=== PATIENT | male | born 1965 | race Caucasian/White ===

== ENCOUNTER 2017-01-11 13:58 | Inpatient (IN) | payer OTHER, SELFPAY ==
[2016-12-23 11:33] VITALS: BMI 27.5
[2017-01-11] VITALS (14 sets, daily range): BP systolic 97–162; BP diastolic 55–111; PULSE 74–113; RESP 16–25; TEMP 36.1–37.3; O2SAT 91–100; BMI 26.6
--- NOTE | 2017-01-11 14:26 | EKG12_ITS ---
Test Reason : REPEAT Blood Pressure : / mmHG Vent. Rate : 089 BPM Atrial Rate : 089 BPM P-R Int : 154 ms QRS Dur : 082 ms QT Int : 352 ms P-R-T Axes : 031 -31 -12 degrees QTc Int : 428 ms Normal sinus rhythm Left axis deviation Inferior-posterior infarct , age undetermined Abnormal ECG Confirmed by ED VENTURA, GURPREET ([id number]), editor trade journal ASHLEY SHIELDS ([id number]) on 01/13/2017 2:06:39 PM Referred By: MERVAT Confirmed By:GURPREET WARD MD
--- NOTE | 2017-01-11 14:26 | RAD_ITS ---
STUDY: X-RAY CHEST REASON FOR EXAM: Male, 51 years old. Chest pain. TECHNIQUE: PA and lateral views of the chest. COMPARISON: Comparison is made with prior study done earlier in the day. FINDINGS: EKG electrodes are seen. Hyperinflation. Mild increased markings at the left lung base suggestive of linear atelectasis and/or scarring. There is no demonstrated pleural abnormality. Normal size heart. Normal mediastinum and stephen. Normal visualized pulmonary arteries. Normal visualized aortic arch and descending thoracic aorta. Normal visualized thoracic spine. Normal visualized ribs, clavicles, and shoulders. There is no demonstrated abnormality of the visualized soft tissue structures of the upper abdomen. RAD/Chest PA and Lateral IMPRESSION: Hyperinflation. Mild increased linear markings at the left lung base suggestive of linear scarring. Electronically Signed: Tanner Jiménez MD at 15:56 EST Tel [phone], Service support ,
[2017-01-11] MEDS: LORazepam 2 MG/ML Syringe 1 MG IV (15:05)
--- NOTE | 2017-01-11 16:06 | ED.VISSUMM ---
- ER Visit Summary Date of Service: 01/11/17 Chief Complaint: I am here to go back upstairs History of Present Illness: The patient is a 51 M who just signed out AGAINST MEDICAL ADVICE approximately 1 hour ago from the PCU where he was admitted for an acute myocardial infarction with positive troponins. The plan was to perform heart cath to rule out in-stent stenosis because he just had a stent placed on December 24. He said that he had to go home and turn the lights on in his apartment, smoke a few cigarettes, and to go pay some bills at the bank that were due this . He said that he has not had any chest pain since he left nor felt short of breath but he did feel somewhat sweaty. His worst episode of pain was this morning when he was initially admitted but he has basically been pain-free since then. He said that he basically return back to the ER to go back upstairs to the PCU. Physical Examination: Is not in distress. Neck is supple. Heart tones are regular and without murmur. Lungs are clear bilaterally. Abdomen is soft and nontender. No clinical evidence of DVT. Strong pulses in all extremities. Test Results: Troponin was repeated and it is markedly increased at 5.52. EKG does not reveal STEMI but does reveal somewhat peaked T waves anteriorly. T waves are flipped inferiorly. Emergency Department Course and Treatment: He remained pain-free and asymptomatic during his emergency department visit today but his troponin has increased consistent with an acute myocardial event. I discussed the case with Dr. Griggs who cared for him when he signed out AGAINST MEDICAL ADVICE and she is arranging to admit him back to the PCU and discussing the case with Dr. Mtz. He was already given aspirin. Other meds are going to be ordered by the admitting physician. Treatment Plan: Admit to PCU Disposition: Admit PCU Impression: NSTEMI This note was generated with [employer] dictation software. It may contain incorrect words, spelling, and punctuation that were not noted in review of the chart prior to signing ED Disposition - Plan for ED Patient: Chief Complaint: Chest Pain Referrals: Care Physician,No Primary [Primary Care Provider] -
--- NOTE | 2017-01-11 18:16 | PCM.HP.STD ---
Problem List (1) CAD (coronary artery disease), [place] coronary artery Status: Chronic Qualifiers: [place] vs. transplanted heart: [place] heart (2) History of PTCA Status: Chronic Comment: 12/23/16 2 bare metal stents to the RCA (3) Smoking addiction Status: Chronic (4) NSTEMI (non-ST elevated myocardial infarction) Status: Acute Comment: 01/11/17 (5) Noncompliance Status: Chronic (6) Abnormal EKG Status: Acute (7) STEMI (ST elevation myocardial infarction) Status: Chronic Qualifiers: Involved coronary artery: right coronary artery Qualified Code(s): I21.11 - ST elevation (STEMI) myocardial infarction involving right coronary artery Comment: 12/23/16 (8) Anxiety Status: Chronic History of Present Illness Date of Admission: 01/11/17 Chief Complaint: CP The patient is a 51 year old M with a past medical history of nicotine addiction, coronary artery disease, PTCA with 2 bare-metal stents to the RCA on 12/23/16, STEMI 12/23/16 who presented to the ER at [facility] on 01/11/17 complaining of a heavy squeezing pain in his chest. He related that he had stopped Plavix on 01/07 and told me this was because he wanted to drink. VS in the emergency room were temperature 98.1, pulse 92, respiratory rate 20, blood pressure 127/85 and his pulse ox was 96% on room air. Lab was unremarkable. The initial troponin was less than 0.02. EKG was ABN when compared to the EKG done after STEMI in December. Chest x-ray revealed no acute findings. He was admitted to a monitored bed on the progressive care unit and serial cardiac enzymes were ordered. The second troponin was elevated at 2.76. He was seen in consultation by Dr. Mtz from the [facility] who advised a cardiac catheterization but, the patient refused. He was told by Dr. Mzt and myself that he was at high risk of occluding the RCA stents due to discontinuing Plavix and that if he left the hospital AMA he was at high risk for sudden cardiac . He elected to leave AMA. ECHO was done prior to him leaving the hospital and the EF is now 45-50%......it was 60% post cath/PTCA. He returned to the ER a few hours later and asked to be readmitted to have a cardiac cath. Blood pressure when he arrived back in the emergency room was initially 143/90 and then increased to 158/111. The heart rate was within normal limits and he was afebrile. He was 95-100% saturated on room air. The third troponin is now increased to 5.52. He is being readmitted to PCU with a diagnosis of NSTEMI. He will be kept on a statin, Coreg, ASA, plavix and started on Lovenox 1 mg/kg subcu every 12 hours and a nitroglycerin infusion. He will undergo cardiac catheterization on 01/[address] Thad Mtz who has been notified that the patient returned to the hospital following discharge AMA earlier in the day. Past Medical History Past Medical History (Chronic Problems): Chronic Problems (Last Updated 01/10/17 @ 09:31 by BHARAT HoC) CAD (coronary artery disease), [place] coronary artery (Chronic) History of PTCA (Chronic) 12/23/16 2 bare metal stents to the RCA Smoking addiction (Chronic) Anxiety (Chronic) Noncompliance (Chronic) STEMI (ST elevation myocardial infarction) (Chronic) 12/23/16 Allergies No Known Allergies Allergy (Verified 01/11/17 13:58) Home Medications: Ambulatory Orders Medication Instructions Recorded Aspirin E.C. [Ecotrin] 81 mg PO DAILY@0800 tablet 12/25/16 Atorvastatin Calcium [Lipitor] 80 mg PO QHS 30 Days tablet 12/25/16 Carvedilol [Coreg (Beta Levon)] 3.125 mg PO BID #60 tablet 12/25/16 Clopidogrel Bisulfate [Plavix] 75 mg PO DAILY #30 tablet 12/25/16 Nicotine [Nicoderm Cq] 21 mg TRANSDERM. DAILY #14 patch 12/25/16 Trazodone HCl [Desyrel] 50 mg PO QHS #20 tablet 12/25/16 Lorazepam [Ativan] 1 mg PO TID PRN #10 tablet 12/28/16 Surgical History: noncontributory Psychiatric History: Anxiety Lives: Alone Smoking Status: Current every day smoker Tobacco Use: Cigarettes Alcohol: Heavy Drugs: None - he denies - *Family History Sibling History Items: Heart Disease Review of Systems Constitutional: Denies: Anorexia, Chills, Fever, Malaise, Weakness Eyes: Denies: Blurred vision HEENT: Denies: Head Aches, Sinus Congestion, Sinus Drainage, Sore Throat Cardiovascular: Reports: Chest Pain. Denies: Claudication, Edema, Light Headedness, Orthopnea, Palpitations, Paroxysmal Noc. Dyspnea, Syncope Respiratory: Denies: Shortness of Breath Gastrointestinal: Denies: Abdominal Pain, Nausea, Vomiting Genitourinary: Denies: Dysuria Musculoskeletal: Denies: Joint Pain, Joint Tenderness Skin: Denies: Jaundice, Rash, Wounds Neurological: Denies: Numbness, Tingling, Focal weakness Psychiatric: Reports: Anxiety Hematologic/ Lymphatic: Denies: Hx of blood clot VTE Information - Inpt Only VTE Present on Admission: No VTE Mechan Device Prophylaxis: Knee High MAYRA Hose Reason prophylaxis not ordered:: Treatment Not Indicated - he is on full dose Lovenox, 1 mg/kg SQ Q 12H Patient Problems: Active and Suspected Problems (Last Updated 01/10/17 @ 09:31 by Saroj Hidalgo BANANA ROOM CUTTER-C) NSTEMI (non-ST elevated myocardial infarction) (Acute) 01/11/17 - Physical Exam General: Alert, Oriented x3, Well developed, Well nourished, - - seems fidgety and anxious HEENT: Atraumatic, PERRLA, EOMI, Normocephalic Oral: Moist Mucosa Neck: Supple, No JVD, No Nuchal Rigidity, Trachea Midline Lungs: Clear to auscultation, No rhonchi, No wheeze, No rales Cardiovascular: Regular rate, Regular Rhythm, Normal S1, Normal S2, No murmurs, No rub noted, No Gallop Abdomen: Bowel Sounds Present, Soft, Non Tender, Non-Distended, No Hepato-splenomegaly Extremities: No clubbing, No cyanosis, No edema, No Calf Tenderness Skin: No rashes, No breakdown Musculoskeletal: No Muscle Wasting Neurological: Cranial nerves II-XII grossly intact, Neuro grossly intact Psych/Mental Status: Anxious Vital Signs Temp Pulse Resp BP Pulse Ox 99.2 F H 92 18 156/101 H 95 01/11/17 17:52 01/11/17 17:52 01/11/17 17:52 01/11/17 17:52 01/11/17 17:52 Oxygen Delivery Method Room Air Weight: 213 lb Body Mass Index (BMI) 26.6 Laboratory Tests Past 24 Hrs 01/11/17 17:44 Ethyl Alcohol Pending Assessment/Plan Active and Suspected Problems (Last Updated 01/10/17 @ 09:31 by BHARAT HoC) NSTEMI (non-ST elevated myocardial infarction) (Acute) 01/11/17 Impressions 1. Non-ST segment elevation [place] 2. Coronary artery disease with PTCA and bare-metal stents X2 to the RCA on 12/23/16 after presenting to the ER on that date with STEMI 3. ischemic cardiomyopathy with a 45-50 % EF 4. smoking addiction 5. suspect ETOH abuse 6. chronic anxiety and Benzodiazepine use 7. non-compliance Admit to PCU and start a NTG infusion and Lovenox 1 mg/kg subcu every 12 hours Schedule Ativan every 8 hours for anxiety control Continue Coreg but increase the dose to 6.25 mg twice daily. Continue atorvastatin, aspirin and Plavix N.p.o. after midnight Cardiac catheterization in the a.m. by Dr. Thad Mtz Recheck lab in the a.m. including a lipid panel Code Visit Inpatient E&M: 20944 Init Hosp L3
--- NOTE | 2017-01-11 18:21 | HP.PCM_ITS ---
Problem List (1) CAD (coronary artery disease), [place] coronary artery Status: Chronic Qualifiers: [place] vs. transplanted heart: [place] heart (2) History of PTCA Status: Chronic Comment: 12/23/16 2 bare metal stents to the RCA (3) Smoking addiction Status: Chronic (4) NSTEMI (non-ST elevated myocardial infarction) Status: Acute Comment: 01/11/17 (5) Noncompliance Status: Chronic (6) Abnormal EKG Status: Acute (7) STEMI (ST elevation myocardial infarction) Status: Chronic Qualifiers: Involved coronary artery: right coronary artery Qualified Code(s): I21.11 - ST elevation (STEMI) myocardial infarction involving right coronary artery Comment: 12/23/16 (8) Anxiety Status: Chronic History of Present Illness Date of Admission: 01/11/17 Chief Complaint: CP The patient is a 51 year old M with a past medical history of nicotine addiction, coronary artery disease, PTCA with 2 bare-metal stents to the RCA on 12/23/16, STEMI 12/23/16 who presented to the ER at [facility] on 01/11/17 complaining of a heavy squeezing pain in his chest. He related that he had stopped Plavix on 01/07 and told me this was because he wanted to drink. VS in the emergency room were temperature 98.1, pulse 92, respiratory rate 20, blood pressure 127/ 85 and his pulse ox was 96% on room air. Lab was unremarkable. The initial troponin was less than 0.02. EKG was ABN when compared to the EKG done after STEMI in December. Chest x-ray revealed no acute findings. He was admitted to a monitored bed on the progressive care unit and serial cardiac enzymes were ordered. The second troponin was elevated at 2.76. He was seen in consultation by Dr. Mtz from the [facility] who advised a cardiac catheterization but, the patient refused. He was told by Dr. Mtz and myself that he was at high risk of occluding the RCA stents due to discontinuing Plavix and that if he left the hospital AMA he was at high risk for sudden cardiac . He elected to leave AMA. ECHO was done prior to him leaving the hospital and the EF is now 45-50%......it was 60% post cath/PTCA. He returned to the ER a few hours later and asked to be readmitted to have a cardiac cath. Blood pressure when he arrived back in the emergency room was initially 143/90 and then increased to 158/111. The heart rate was within normal limits and he was afebrile. He was 95-100% saturated on room air. The third troponin is now increased to 5.52. He is being readmitted to PCU with a diagnosis of NSTEMI. He will be kept on a statin, Coreg, ASA, plavix and started on Lovenox 1 mg/kg subcu every 12 hours and a nitroglycerin infusion. He will undergo cardiac catheterization on 01/[address] Thad Mtz who has been notified that the patient returned to the hospital following discharge AMA earlier in the day. Past Medical History Past Medical History (Chronic Problems): Chronic Problems (Last Updated 01/10/17 @ 09:31 by BHARAT HoC) CAD (coronary artery disease), [place] coronary artery (Chronic) History of PTCA (Chronic) 12/23/16 2 bare metal stents to the RCA Smoking addiction (Chronic) Anxiety (Chronic) Noncompliance (Chronic) STEMI (ST elevation myocardial infarction) (Chronic) 12/23/16 Allergies No Known Allergies Allergy (Verified 01/11/17 13:58) Home Medications: Ambulatory Orders Medication Instructions Recorded Aspirin E.C. [Ecotrin] 81 mg PO DAILY@0800 tablet 12/25/16 Atorvastatin Calcium [Lipitor] 80 mg PO QHS 30 Days tablet 12/25/16 Carvedilol [Coreg (Beta Levon)] 3.125 mg PO BID #60 tablet 12/25/16 Clopidogrel Bisulfate [Plavix] 75 mg PO DAILY #30 tablet 12/25/16 Nicotine [Nicoderm Cq] 21 mg TRANSDERM. DAILY #14 patch 12/25/16 Trazodone HCl [Desyrel] 50 mg PO QHS #20 tablet 12/25/16 Lorazepam [Ativan] 1 mg PO TID PRN #10 tablet 12/28/16 Surgical History: noncontributory Psychiatric History: Anxiety Lives: Alone Smoking Status: Current every day smoker Tobacco Use: Cigarettes Alcohol: Heavy Drugs: None - he denies - *Family History Sibling History Items: Heart Disease Review of Systems Constitutional: Denies: Anorexia, Chills, Fever, Malaise, Weakness Eyes: Denies: Blurred vision HEENT: Denies: Head Aches, Sinus Congestion, Sinus Drainage, Sore Throat Cardiovascular: Reports: Chest Pain. Denies: Claudication, Edema, Light Headedness, Orthopnea, Palpitations, Paroxysmal Noc. Dyspnea, Syncope Respiratory: Denies: Shortness of Breath Gastrointestinal: Denies: Abdominal Pain, Nausea, Vomiting Genitourinary: Denies: Dysuria Musculoskeletal: Denies: Joint Pain, Joint Tenderness Skin: Denies: Jaundice, Rash, Wounds Neurological: Denies: Numbness, Tingling, Focal weakness Psychiatric: Reports: Anxiety Hematologic/ Lymphatic: Denies: Hx of blood clot VTE Information - Inpt Only VTE Present on Admission: No VTE Mechan Device Prophylaxis: Knee High MAYRA Hose Reason prophylaxis not ordered:: Treatment Not Indicated - he is on full dose Lovenox, 1 mg/kg SQ Q 12H Patient Problems: Active and Suspected Problems (Last Updated 01/10/17 @ 09:31 by Saroj Hidalgo POWER LINE LINEMAN- C) NSTEMI (non-ST elevated myocardial infarction) (Acute) 01/11/17 - Physical Exam General: Alert, Oriented x3, Well developed, Well nourished, - - seems fidgety and anxious HEENT: Atraumatic, PERRLA, EOMI, Normocephalic Oral: Moist Mucosa Neck: Supple, No JVD, No Nuchal Rigidity, Trachea Midline Lungs: Clear to auscultation, No rhonchi, No wheeze, No rales Cardiovascular: Regular rate, Regular Rhythm, Normal S1, Normal S2, No murmurs, No rub noted, No Gallop Abdomen: Bowel Sounds Present, Soft, Non Tender, Non-Distended, No Hepato- splenomegaly Extremities: No clubbing, No cyanosis, No edema, No Calf Tenderness Skin: No rashes, No breakdown Musculoskeletal: No Muscle Wasting Neurological: Cranial nerves II-XII grossly intact, Neuro grossly intact Psych/Mental Status: Anxious Vital Signs Temp Pulse Resp BP Pulse Ox 99.2 F H 92 18 156/101 H 95 01/11/17 17:52 01/11/17 17:52 01/11/17 17:52 01/11/17 17:52 01/11/17 17:52 Oxygen Delivery Method Room Air Weight: 213 lb Body Mass Index (BMI) 26.6 Laboratory Tests Past 24 Hrs 01/11/17 17:44 Ethyl Alcohol Pending Assessment/Plan Active and Suspected Problems (Last Updated 01/10/17 @ 09:31 by BHARAT Ho C) NSTEMI (non-ST elevated myocardial infarction) (Acute) 01/11/17 Impressions 1. Non-ST segment elevation [place] 2. Coronary artery disease with PTCA and bare-metal stents X2 to the RCA on after presenting to the ER on that date with STEMI 3. ischemic cardiomyopathy with a 45-50 % EF 4. smoking addiction 5. suspect ETOH abuse 6. chronic anxiety and Benzodiazepine use 7. non-compliance Admit to PCU and start a NTG infusion and Lovenox 1 mg/kg subcu every 12 hours Schedule Ativan every 8 hours for anxiety control Continue Coreg but increase the dose to 6.25 mg twice daily. Continue atorvastatin, aspirin and Plavix N.p.o. after midnight Cardiac catheterization in the a.m. by Dr. Thad Mtz Recheck lab in the a.m. including a lipid panel Code Visit Inpatient E&M: 26690 Init Hosp L3
[2017-01-11 18:40] LABS: Hematocrit 47.5 % (40-54); Mean Corp Hgb Conc 33.7 g/gl (32-36); Mean Corpuscular Hgb 32.7 pg (27.0-32.0); Mean Corpuscular Volume 96.9 fL (80-94); Mean Platelet Vol. 9.7 fl (6.2-12.0); Platelet Count 227 K/mm3 (150-450); RBC Distribution Width CV 12.5 % (11.6-14.6); White Blood Count 8.7 K/mm3 (4.4-11.0)
[2017-01-11 18:41] LABS: Scan Indicated on CBC? Y/N NO
[2017-01-11 18:45] LABS: Alcohol, Blood (Medical)-Serum < 3.0 mg/dL
[2017-01-11] MEDS: Lisinopril 5 MG Tablet PO (19:06)
[2017-01-11] MEDS: Enoxaparin 100 MG/ML Syringe SC (19:06)
[2017-01-11] MEDS: LORazepam 1 MG Tablet PO (19:06)
[2017-01-11 21:46] LABS: Amphetamine Urine VISTA NEGATIVE (<1000 ng/mL); Barbiturate Urine VISTA NEGATIVE (< 200 ng/mL); Benzodiazepine Urine VISTA NEGATIVE (< 200 ng/mL); Cocaine Urine VISTA NEGATIVE (< 300 ng/mL); Ecstacy Urine VISTA NEGATIVE (< 500 ng/mL); Methadone Urine VISTA NEGATIVE (< 300 ng/mL); PCP Urine VISTA NEGATIVE (< 25 ng/mL); THC Urine VISTA NEGATIVE (< 50 ng/mL); Vista UDS pH Range 6
[2017-01-11] MEDS: Atorvastatin Calcium 80 MG Tablet PO (22:30)
[2017-01-11] MEDS: traZODone 50 MG Tablet PO (22:30)
[2017-01-11] MEDS: Carvedilol 6.25 MG Tablet PO (22:30)
[2017-01-11 23:27] LABS: Hematocrit 45.5 % (40-54); Hemoglobin 15.8 g/dl (13.0-16.5); Mean Corp Hgb Conc 34.7 g/gl (32-36); Mean Corpuscular Hgb 33.3 pg (27.0-32.0); Mean Corpuscular Volume 95.8 fL (80-94); Mean Platelet Vol. 9.9 fl (6.2-12.0); Platelet Count 244 K/mm3 (150-450); RBC Distribution Width CV 12.4 % (11.6-14.6); RBC Distribution Width SD 42.2 fl (35.1-43.9); Red Blood Count 4.75 M/mm3 (4.6-6.2); White Blood Count 9.3 K/mm3 (4.4-11.0)
[2017-01-11 23:32] LABS: Scan Indicated on CBC? Y/N NO
[2017-01-12] VITALS (24 sets, daily range): BP systolic 91–145; BP diastolic 49–105; PULSE 59–87; RESP 12–24; TEMP 36.6–37.6; O2SAT 92–97; BMI 26.6
[2017-01-12] MEDS: Acetaminophen 325 MG Tablet 650 MG PO (04:35)
[2017-01-12 05:24] LABS: Partial Thromboplast Time 32.2 Seconds (24.1-36.2)
[2017-01-12 05:49] LABS: ALB/GLOB Ratio 0.9 RATIO (0.9-2.4); AST(SGOT) 46 U/L (15-37); Alanine Aminotransfer ALT/SGPT 31 U/L (12-78); Albumin, Serum 3.3 g/dL (3.4-5.0); Alkaline Phosphatase 74 U/L (45-117); Anion Gap 9 (5-15); BUN 12 mg/dL (7-18); BUN/Creat Ratio 13.9 RATIO (10-20); Calcium,Total 8.1 mg/dL (8.5-10.1); Chloride 107 mmol/L (98-107); Creatinine, Serum 0.86 mg/dL (0.70-1.30); EST Glomerular Filtration Rate 99 mL/min (>60); Est Glom Filt Rate - Afr Amer 120 mL/min (>60); Estimated Creatinine Clearance 121.46 ml/min; Globulin 3.6 g/dL (2.2-4.2); Glucose 117 mg/dL (70-110); Magnesium 2.4 mg/dL (1.8-2.4); Phosphorus 3.2 mg/dL (2.5-4.9); Protein, Total 6.9 g/dL (6.4-8.2); Sodium Level 142 mmol/L (136-145)
--- NOTE | 2017-01-12 05:55 | EKG12_ITS ---
Test Reason : AM EKG Blood Pressure : / mmHG Vent. Rate : 073 BPM Atrial Rate : 073 BPM P-R Int : 146 ms QRS Dur : 082 ms QT Int : 436 ms P-R-T Axes : 009 -28 -64 degrees QTc Int : 480 ms Normal sinus rhythm Inferior infarct , age undetermined ST & T wave abnormality, consider anterolateral ischemia Abnormal ECG When compared with ECG of 11-JAN-2017 14:32, MANUAL COMPARISON REQUIRED, DATA IS UNCONFIRMED Confirmed by ETIENNE BERRIOS ([id number]), department editor ASHLEY SHIELDS ([id number]) on 01/18/2017 9:53:54 AM Referred By: MARLI Confirmed By:ETIENNE BERRIOS
[2017-01-12] MEDS: Aspirin E.C. 81 MG Tablet PO (08:38)
[2017-01-12] MEDS: Clopidogrel Bisulfate 75 MG Tablet PO (08:38)
--- NOTE | 2017-01-12 08:45 | NURSING ---
Pt taken to cathead operator w/DILIP Vieira.
--- NOTE | 2017-01-12 09:08 | CASEMGMT ---
According to [facility] website, the following are in-network tertiary facilities: [facility], [facility], [facility], [facility], [facility], [facility], [facility], and . Josselin CHERRY CM
--- NOTE | 2017-01-12 09:15 | NURSING ---
Nitro GTT d/c in laborer cutting tool
--- NOTE | 2017-01-12 09:44 | CL.D_ITS ---
Patient Name: ORQUIDEA JUÁREZ Study Date: 01/12/2017 Performing: Thad Mtz MD Ht: 75.19 inches 191 cm : 1965 Wt: 213.85 lbs 97 kg Age: 51 Gender: male BSA: 2.26 PROCEDURE(S) PERFORMED [id number]/LV CLINICAL PROFILE AND INDICATIONS INDICATIONS: Unstable Angina Stress/Imaging Stress/Image Study Performed: No Angina Classification Anginal Classification w/in 2 Weeks: CCS IV CAD Presentations: Non-STEMI. Symptom onset Date/Time: 01/11/2017 Time Not Available Comorbidities/Risk Factors: Current/Recent Smoker (< 1year) Hypertension Dyslipidemia Prior PCI CONCLUSIONS Widely patent mid and distal RCA stents. Non obstructive coronary arteries No overt evidence of significant CAD to explain pts unstable angina and NSTEMI. Pt has been medicall y non-compliant with DAPT, as well as anti-HTN meds. Will increase coreg, start cozaar and recommend medical management of OM#1 lesion. If pt remains compliant with meds and returns with [place], would con record label intern PCI of OM#1. RECOMMENDATIONS Risk factor modification Plavix for at least 12 months Management as per referring Learning Analyst DESCRIPTION OF PROCEDURE The patient arrived to the procedure lab. The risks and benefits of the procedure as well as a full d escription of our services here and current unavailability of surgical backup were fully explained to the patient and/or their significant other prior to the catheterization. The Timeout was completed, verifying the correct patient and procedure. The patient's procedural site was prepped and draped in the usual fashion. Local anesthetic was given subcutaneously to right groin region with Lidocaine 2%. Using a modified Seldinger technique, arterial access was obtained via the right femoral artery, a 4 Fr sheath was inserted. Left Coronary Artery selective angiography was performed in multiple views u sing a 4 Fr. JL5 catheter. Right Coronary Artery selective angiography was then performed in multiple views using a 4 Fr. 3DRC catheter. Left Ventriculography was performed in ALVAREZ projection using a 4 F r. Pigtail catheter. LV to AO pullback pressures were then recorded.The arterial sheath was pulled an d manual compression applied until hemostasis is achieved. CORONARY ANGIOGRAPHY DOMINANCE: Right Dominant LEFT HEART ASSESSMENT Left Ventricular Ejection Fraction: by LV Gram 50-55 % Inferior Basal Hypokinesis - Mild Depressed Left Ventricular systolic function Abnormal Left Ventricular contraction pattern LEFT MAIN: Angiographically normal LEFT ANTERIOR DECENDING ARTERY: Mild luminal irregularities less than 30% CIRCUMFLEX ARTERY: Angiographically normal OM 1: Proximal - 50 % Stenosis RIGHT CORONARY ARTERY: MID RCA: Previously placed stent is patent DISTAL RCA: Previously placed stent is patent RT PLV: 50 prox % Stenosis RT PDA: Ostial - Angiographically normal COMPLICATIONS No Complications PROCEDURE MEDICATIONS Versed 1 mg IV Versed 1 mg IV Oxygen: 2 L/min via nasal cannula Nitro glycerin 25mg / 250ml D5W @ 5 mcg/min arrived from floor 01/12/2017 08:59:23 Nitro glycerin 25mg / 250ml D5W @ 0 mcg/min discontinued 01/12/2017 09:06:28 SUMMARY OF HEMODYNAMIC DATA Time AIR REST ECG 08:53:49 AO 116/65 (88) SA 09:05:57 LV 124/-14, 8 09:16:22 LV 124/-13, 15 09:16:29 LVp 124/-11, 13 09:16:34 AOp 123/69 (91) 09:16:39 Signed By Thad Mtz MD On 01/12/2017 09:43:49 Thad Mtz MD
[2017-01-12] MEDS: Carvedilol 6.25 MG Tablet PO (11:50)
[2017-01-12] MEDS: Losartan Potassium 25 MG Tablet PO (11:51)
[2017-01-12] MEDS: LORazepam 1 MG Tablet PO ×2 (12:03→17:39)
--- NOTE | 2017-01-12 13:28 | CRPHASE1 ---
Patient Data/Charges Sales & Service Associate:: Thad Mtz - \ Refer Phase II:: Yes Phase II Referral:: [facility] Risk Factors/Lifestyle Smoking Status: Current every day smoker Packs Smoked per Day: 1 Hx Hypertension: Yes - on meds Hx Diabetes Mellitus Type 1: No Hx Diabetes Mellitus Type 2: No Hx Dyslipidemia: Yes Hx Obesity: No Height: 1.91 m Weight:: 96.615 kg BMI: 26.6 Stress: Work-related, Home/Family ETOH: Yes Caffeine: No Substance Abuse: No Risk Factor for Sedentary Lifestyle: Lowest Risk Family History: Heart Disease, Hypertension Past Cardiac Illness: Coronary Artery Disease, Previous PCI w/Stent Phase I Education Given On:: Independence, Nutrition, Antiplatelet medication, CHF, Smoking cessation, Diabetes - Type I, Diabetes - Type II Issues Affecting Care:: None Knowledge of Condition:: Yes Hospital Course Pain Description: Sharp, Pressure Cardiac Cath Date:: 01/12/17 Medical/Surgical History UT:: Yes Angina:: Yes CAD:: Yes COPD:: Yes Diabetes:: No Diabetes Type I:: No Diabetes Type II:: No Hypertension:: Yes Dyslipidemia:: Yes Anxiety:: Yes PTCA:: Yes - 12/24 Discharge/Home/Social Eval Discharge Disposition: Home Marital Status: Single
--- NOTE | 2017-01-12 13:37 | CRPHASE1_ITS ---
Patient Data/Charges Student Services Rep:: Thad Mtz - \ Refer Phase II:: Yes Phase II Referral:: [facility] Risk Factors/Lifestyle Smoking Status: Current every day smoker Packs Smoked per Day: 1 Hx Hypertension: Yes - on meds Hx Diabetes Mellitus Type 1: No Hx Diabetes Mellitus Type 2: No Hx Dyslipidemia: Yes Hx Obesity: No Height: 1.91 m Weight:: 96.615 kg BMI: 26.6 Stress: Work-related, Home/Family ETOH: Yes Caffeine: No Substance Abuse: No Risk Factor for Sedentary Lifestyle: Lowest Risk Family History: Heart Disease, Hypertension Past Cardiac Illness: Coronary Artery Disease, Previous PCI w/Stent Phase I Education Given On:: [place], Nutrition, Antiplatelet medication, CHF, Smoking cessation, Diabetes - Type I, Diabetes - Type II Issues Affecting Care:: None Knowledge of Condition:: Yes Hospital Course Pain Description: Sharp, Pressure Cardiac Cath Date:: 01/12/17 Medical/Surgical History RI:: Yes Angina:: Yes CAD:: Yes COPD:: Yes Diabetes:: No Diabetes Type I:: No Diabetes Type II:: No Hypertension:: Yes Dyslipidemia:: Yes Anxiety:: Yes PTCA:: Yes - 12/24 Discharge/Home/Social Eval Discharge Disposition: Home Marital Status: Single
--- NOTE | 2017-01-12 13:37 | CRPH1.INSTRU ---
General Education CAD and cardiac anatomy and function:: Patient communicates acknowledgment Explanation of diagnoses and procedures:: Patient communicates acknowledgment Sign/Symptoms of CO:: Patient communicates acknowledgment Antiplatelet therapy: Patient communicates acknowledgment Proper use of NTG-SL: Patient communicates acknowledgment - states had none at home Emergency procedures and activation of EMS: Patient communicates acknowledgment Compliance of all prescribed medications: Patient communicates acknowledgment Smoking Patient Nicotine/Smoking Risk Factors Are:: Cigarettes Recommendations Include:: Smoking cessation strategies/Smoking packet Nicotine/Smoking Response Code:: Patient communicates acknowledgment Dyslipidemia Recommendations Include:: Lipid profile not available Dyslipidemia Response Code:: Patient communicates acknowledgment Overweight/Obesity Patient Overweight/Obesity Risk Factors Are:: Overweight = 26-29 Overweight/Obesity:: Patient communicates acknowledgment Hypertension Recommendations Include:: Maintain BP <130/85, Moderation of ETOH - on meds Hypertension:: Patient communicates acknowledgment Heart Disease Patient Heart Disease Risk Factors Are:: Family history of heart disease < 65 years old, Previous cardiac event Heart Disease Response Code:: Patient communicates acknowledgment Diabetes Patient Diabetes Risk Factors Are:: No documented hx of diabetes Metabolic Syndrome Patient Metabolic Syndrome Risk Factors Are [3 of 5]:: High triglyceride >150, Hypertension Metabolic Syndrome Response Code:: Patient communicates acknowledgment Sedentary Patient Sedentary Risk Factors Are:: Lack of regular exercise Recommendations Include:: Aerobic exercise 5-7 times/week for 20-30 minutes continuously, Benefits of regular exercise, Discussed home walking program, Monitored Outpatient Cardiac Rehab Sedentary Response Code:: Patient communicates acknowledgment Stress Patient Stress Risk Factors Are:: Patient denies stress as a risk factor Stress Response Code:: Patient communicates acknowledgment
--- NOTE | 2017-01-12 13:55 | NURSING ---
Pt got up and walked in the hallways with this RN. Cath site remains benign.
--- NOTE | 2017-01-12 15:48 | CASEMGMT ---
Face to Face with patient for initial transition planning/care coordination assessment. DILIP FOWLER introduced self and role at [facility], pt voices understanding and consents to assessment at this time. Pt lying in bed in no distress at this time. Pt A/O x4 at this time and answers all questions appropriately at this time. Care providers, pharmacy, and demographics verified. See attached link. Pt voices no further concerns/needs at this time. Advised pt to ask for CM if any further questions/concerns/needs arise, voices understanding. PL[place] DILIP FOWLER
--- NOTE | 2017-01-12 18:00 | PCM.DC ---
- Discharge Diagnoses Current Active Problems: Current Active and Chronic Problems (Last Updated 01/10/17 @ 09:31 by BETH Ho) CAD (coronary artery disease), [place] coronary artery (Chronic) History of PTCA (Chronic) 12/23/16 2 bare metal stents to the RCA Smoking addiction (Chronic) Anxiety (Chronic) Noncompliance (Chronic) NSTEMI (non-ST elevated myocardial infarction) (Acute) 01/11/17 You will use the following diet at home:: Cardiac Your food should be the consistency of: Regular Your liquids should be the consistency of: Regular/Thin Discharge Activity: Return to Normal Activity Return to work on:: 01/19/17 May shower in (days): 1 June resume sexual activity in: 10-14 days Weight Bearing Status: Full weight bearing Lifting Restrictions: no more than 10 lbs for 1 week Call your doctor if your incision/area has: Continuous Slow Oozing, Sudden Increased Bleeding, Increased Pain/ Swelling, Increased Redness, Foul Smelling Discharge Call your doctor if you observe: Fever of 101 or Higher, Shortness of breath, Dizziness, Fainting spells, Swelling in the ankles, Chest pain Additional Instructions: 1. You had a heart attack. This most likely happened because you did not take the Plavix. This probably caused a clot to form in the stent and when we gave you blood thinners in the hospital it dissolved. You were very charlene! Both stents were patent at the time of the cardiac catheterization AND there was no significant damage to the heart muscle. You MUST take both Aspirin and Plavix for at LEAST the next 3 months. 2. If you do not stop smoking you will develop more disease in the arteries in your heart and the next time you may not be so charlene. Pending Tests on Discharge: none Allergies/Adverse Reactions: Allergies No Known Allergies Allergy (Verified 01/11/17 13:58) Medications to take at Discharge Aspirin E.C. [Ecotrin] 81 mg PO DAILY@0800 tablet 12/25/16 Atorvastatin Calcium [Lipitor] 80 mg PO QHS 30 Days tablet 12/25/16 Clopidogrel Bisulfate [Plavix] 75 mg PO DAILY #30 tablet 12/25/16 Nicotine [Nicoderm Cq] 21 mg TRANSDERM. DAILY #14 patch 12/25/16 Trazodone HCl [Desyrel] 50 mg PO QHS #20 tablet 12/25/16 Lorazepam [Ativan] 1 mg PO TID PRN #10 tablet 12/28/16 Carvedilol [Coreg (Beta Lveon)] 6.25 mg PO BID #60 tab 01/12/17 Losartan Potassium [Cozaar] 25 mg PO DAILY #30 tab 01/12/17 The following prescriptions were given: Losartan Potassium [Cozaar] 25 mg PO DAILY #30 tab Carvedilol [Coreg (Beta Levon)] 6.25 mg PO BID #60 tab Primary Care Physician: Care Physician,No Primary [Primary Care Provider] - Please Follow Up With: Socrates Monte MD When: SCHEDULED Please Follow Up With: Kendell Lyons DO When: 1-2 WEEKS Proposed Discharge Date: 01/12/17
--- NOTE | 2017-01-12 18:11 | PCM.DC.SUM ---
Discharge Date and Diagnosis Date of Admission: 01/11/17 Date of Discharge: 01/12/17 - Primary Discharge Diagnosis Active and Suspected Problems (Last Updated 01/10/17 @ 09:31 by BETH Ho) NSTEMI (non-ST elevated myocardial infarction) (Acute) 01/11/17 uncontrolled HTN - Secondary Discharge Diagnosis Chronic Problems (Last Updated 01/10/17 @ 09:31 by BETH Ho) CAD (coronary artery disease), [place] coronary artery (Chronic) History of PTCA (Chronic) 12/23/16 2 bare metal stents to the RCA Smoking addiction (Chronic) Anxiety (Chronic) Noncompliance (Chronic) STEMI 12/23/16 COPD Hospital Course and Treatment Imaging Results: Clinical Impression(s) from Imaging Studies Chest X-Ray 01/11/17 14:26 IMPRESSION: Hyperinflation. Mild increased linear markings at the left lung base suggestive of linear scarring. Electronically Signed: Tanner Jiménez MD at 15:56 EST Tel [phone], Service support , Thad Mtz-[facility] Operations: None Procedures: Cardiac catheterization - 01/12/17 Dr. Mtz. Stents patent and no intervention Summary of Care Provided: The patient is a 51 year old M with a past medical history of nicotine addiction, coronary artery disease, PTCA with 2 bare-metal stents to the RCA on 12/23/16, STEMI 12/23/16 who presented to the ER at [facility] on 01/11/17 complaining of a heavy squeezing pain in his chest. He related that he had stopped Plavix on 01/07 and told me this was because he wanted to drink. VS in the emergency room were temperature 98.1, pulse 92, respiratory rate 20, blood pressure 127/85 and his pulse ox was 96% on room air. Lab was unremarkable. The initial troponin was less than 0.02. EKG was ABN when compared to the EKG done after STEMI in December. Chest x-ray revealed no acute findings. He was admitted to a monitored bed on the progressive care unit and serial cardiac enzymes were ordered. The second troponin was elevated at 2.76. He was seen in consultation by Dr. Mtz from the [facility] who advised a cardiac catheterization but, the patient refused. He was told by Dr. Mtz and myself that he was at high risk of occluding the RCA stents due to discontinuing Plavix and that if he left the hospital AMA he was at high risk for sudden cardiac . He elected to leave AMA. ECHO was done prior to him leaving the hospital and the EF is now 45-50%......it was 60% post cath/PTCA. He returned to the ER a few hours later and asked to be readmitted to have a cardiac cath. Blood pressure when he arrived back in the emergency room was initially 143/90 and then increased to 158/111. The heart rate was within normal limits and he was afebrile. He was 95-100% saturated on room air. The third troponin increased to 5.52. He was readmitted to PCU with a diagnosis of NSTEMI. He was kept on a statin, Coreg, ASA, plavix and started on Lovenox 1 mg/kg subcu every 12 hours and a nitroglycerin infusion. He was taken for cardiac on 01/12 which revealed patent stents and no intervention was needed. He was started on an ARB and Coreg was increased to 6.25 BID for better BP control. We recommended he stay overnight so that we could follow the BP overnight but he requested DC and he was discharged home with a RX for Coreg 6.25 mg and Cozaar 25 mg. He will follow-up with Dr. Kendell Lyons in 1-[address] Monte. The [facility] office will call him to schedule an appointment. This note was generated with [employer] dictation software. It may contain incorrect words, spelling, and punctuation that were not noted in checking the note before signing. Discharge Activity: Return to Normal Activity Return to work on:: 01/19/17 May shower in (days): 1 June resume sexual activity in: 10-14 days Weight Bearing Status: Full weight bearing Call your doctor if your incision/area has: Continuous Slow Oozing, Sudden Increased Bleeding, Increased Pain/ Swelling, Increased Redness, Foul Smelling Discharge Call your doctor if you observe: Fever of 101 or Higher, Shortness of breath, Dizziness, Fainting spells, Swelling in the ankles, Chest pain Home Medications: Medications to take at Discharge Aspirin E.C. [Ecotrin] 81 mg PO DAILY@0800 tablet 12/25/16 Atorvastatin Calcium [Lipitor] 80 mg PO QHS 30 Days tablet 12/25/16 Clopidogrel Bisulfate [Plavix] 75 mg PO DAILY #30 tablet 12/25/16 Nicotine [Nicoderm Cq] 21 mg TRANSDERM. DAILY #14 patch 12/25/16 Trazodone HCl [Desyrel] 50 mg PO QHS #20 tablet 12/25/16 Lorazepam [Ativan] 1 mg PO TID PRN #10 tablet 12/28/16 Carvedilol [Coreg (Beta Levon)] 6.25 mg PO BID #60 tab 01/12/17 Losartan Potassium [Cozaar] 25 mg PO DAILY #30 tab 01/12/17 Following Prescrptions Were Given to Patient: Losartan Potassium [Cozaar] 25 mg PO DAILY #30 tab Carvedilol [Coreg (Beta Levon)] 6.25 mg PO BID #60 tab Primary Care Physician: Care Physician,No Primary [Primary Care Provider] - Please Follow Up With: Socrates Monte MD When: SCHEDULED Please Follow Up With: Kendell Lyons DO When: 1-2 WEEKS Disposition: Home Minutes spent on discharge:: 35 Patient Condition:: Good Meaningful Use Info Meaningful Use Diagnoses (Choose all that apply): AMI - AMI Aspirin given w/in 24hrs of arrival?: Yes ASA at discharge?: Yes Statins at discharge?: Yes Kenny/ARB at discharge?: Yes Beta Levon at discharge?: Yes Done w/ Acute OR measure.: Yes Code Visit Inpatient E&M: 00441 Disch Hosp
== END 2017-01-12 18:45 | disposition home or self-care (01) | DRG 281 ==
LOC: ED 15:04 → PCU 16:41
PROVIDERS: Admitting Provider Internal Medicine; Emergency Provider Emergency Medicine; Visit Provider Internal Medicine
DX: I22.2 Subsequent non-ST elevation (NSTEMI) myocardial infarction (principal); I42.9 Cardiomyopathy, unspecified; F17.210 Nicotine dependence, cigarettes, uncomplicated; I21.11 ST elevation (STEMI) myocardial infarction involving right coronary artery; I25.110 Atherosclerotic heart disease of native coronary artery with unstable angina pectoris; I25.5 Ischemic cardiomyopathy; F41.9 Anxiety disorder, unspecified; Z91.14 Patient's other noncompliance with medication regimen; Z91.19 Patient's noncompliance with other medical treatment and regimen; Z79.82 Long term (current) use of aspirin; Z79.899 Other long term (current) drug therapy; Z95.5 Presence of coronary angioplasty implant and graft; I21.19 ST elevation (STEMI) myocardial infarction involving other coronary artery of inferior wall; E78.00 Pure hypercholesterolemia, unspecified; F10.10 Alcohol abuse, uncomplicated
CPT/HCPCS: 36415; 71020; 71045; 80048; 80053; 80307; 80320; 83735; 84100; 84484; 85025; 85027; 85610; 85652; 85730; 86141; 93005; 93306; 93458; 97802; 99152; 99153; 99282; 99285; J7040; A4216; C1769; C1894; G0480; Q9967

== ENCOUNTER 2017-03-30 06:29 | Observation (INO) | payer SELFPAY ==
[2017-01-12 13:36] VITALS: BMI 26.6
[2017-03-30] VITALS (13 sets, daily range): BP systolic 115–159; BP diastolic 72–100; PULSE 61–78; RESP 16–20; TEMP 36.4–36.8; O2SAT 96–98; BMI 28.5; BMI 26.9
--- NOTE | 2017-03-30 06:46 | RAD_ITS ---
STUDY: X-RAY CHEST REASON FOR EXAM: Male, 51 years old. Chest pain. TECHNIQUE: Single AP portable view of the chest. COMPARISON: Comparison is made with prior study dated January 11, 2017. FINDINGS: EKG electrodes are seen. Hyperinflation. The lungs are clear. There is no demonstrated pleural abnormality. Normal size heart. Normal mediastinum and stephen. Normal visualized pulmonary arteries. Normal visualized aortic arch and descending thoracic aorta. Normal visualized thoracic spine. Normal visualized ribs, clavicles, and shoulders. There is no demonstrated abnormality of the visualized soft tissue structures of the upper abdomen. RAD/Chest 1 View (Portable) IMPRESSION: Normal x-ray examination of the chest. Electronically Signed: Tanner Jiménez MD at 8:07 EST Tel [phone], Service support ,
--- NOTE | 2017-03-30 06:46 | EKG12_ITS ---
Test Reason : CP Blood Pressure : / mmHG Vent. Rate : 067 BPM Atrial Rate : 067 BPM P-R Int : 146 ms QRS Dur : 090 ms QT Int : 388 ms P-R-T Axes : -02 -18 006 degrees QTc Int : 409 ms Normal sinus rhythm Normal ECG Confirmed by ANTONIO VENTURA, ONEIDA ([id number]), medical editor ASHLEY SHIELDS ([id number]) on 04/01/2017 1:07:26 PM Referred By: MERVAT Confirmed By:ONEIDA ALVAREZ MD
[2017-03-30] MEDS: Aspirin 81 MG TAB.CHEW 162 MG PO (06:51)
[2017-03-30 06:53] LABS: Absolute Lymphocyte Count 2.01 X10^3/ul (0.83-4.51); Absolute Neutrophil Count 3.8 X10^3/uL (2.0-7.7); Basophil# 0.02 X10^3/uL; Basophil% 0.3 % (0-1); Eosinophils% 4.3 % (0-5); Hemoglobin 14.5 g/dl (13.0-16.5); Lymphocyte # 2.01 X10^3/ul (4.0); Mean Corp Hgb Conc 33.7 g/gl (32-36); Mean Corpuscular Hgb 32.6 pg (27.0-32.0); Mean Corpuscular Volume 96.6 fL (80-94); Mean Platelet Vol. 9.8 fl (6.2-12.0); Monocyte# 0.74 X10^3/uL; Monocyte% 10.7 % (0-10); Neutrophil # 3.84 X10^3/uL (2.7-7.7); Neutrophil % 55.6 % (47-70); Platelet Count 221 K/mm3 (150-450); RBC Distribution Width CV 13.2 % (11.6-14.6); RBC Distribution Width SD 47.1 fl (35.1-43.9); Red Blood Count 4.45 M/mm3 (4.6-6.2); White Blood Count 6.9 K/mm3 (4.4-11.0)
[2017-03-30 06:54] LABS: POSITIVE COUNT NO; POSITIVE DIFFERENTIAL NO; POSITIVE MORPHOLOGY NO
[2017-03-30 07:15] LABS: Anion Gap 7 (5-15); BUN 12 mg/dL (7-18); BUN/Creat Ratio 15.1 RATIO (10-20); Calcium,Total 8.4 mg/dL (8.5-10.1); Chloride 107 mmol/L (98-107); EST Glomerular Filtration Rate 109 mL/min (>60); Est Glom Filt Rate - Afr Amer 131 mL/min (>60); Estimated Creatinine Clearance 130.56 ml/min; Glucose 110 mg/dL (74-106); Potassium 5.4 mmol/L (3.5-5.1); Sodium Level 140 mmol/L (136-145)
[2017-03-30] MEDS: Acetaminophen 500 MG Tablet 1000 MG PO (07:34)
--- NOTE | 2017-03-30 07:54 | ED.VISSUMM ---
- ER Visit Summary Date of Service: 03/30/17 Chief Complaint: Chest pain History of Present Illness: The patient is a 51 M sudden left-sided chest tightness while getting ready for work at 430. Denied radicular symptoms. Denies nausea, dyspnea, diaphoresis. Tobacco history. Father with [place] at in his 30s. Patient states had a heart attack this past December with stenting, then he states he is brought back in January for additional stent. He is followed by Dr. Monte. He states he does not have time for cardiac rehab. He is on Plavix and states he is taking this. Pain is 8. He took a baby aspirin at home. States she has alcohol 2 times per week, denies any illicit drug use. He states he symptoms feels like his initial heart attack in December. Records reviewed, noted he has STEMI in December with 2 right coronary stents. He had admission January for acute chest pain symptoms with an NSTEMI. Records reporting that he missed some Plavix dose it is, there was concerns for in-stent stenosis. He had a troponin in the fives, he signed out AMA, however return for the catheterization that noted patent stents. He was medically managed and discharged home with outpatient follow-up. Physical Examination: General: Alert and oriented ?3, no acute distress HEENT: Normocephalic, atraumatic. Moist mucosa membranes Neck: supple, nontender. Cardiovascular: Regular rate and rhythm, no murmurs Respiratory: Normal breath sounds, symmetric, no distress Abdomen: Soft, nontender, nondistended Extremities: Nontender, no edema, pulses intact ?4 Neuro: no focal neurological deficits. Test Results: EKG: Normal sinus rhythm, rate of 67, no ST elevation. Isolated T-wave inversion in leads III. Troponin negative. Potassium 5.4 with moderate hemolyzed sedation. Creatinine 0.8. Emergency Department Course and Treatment: Patient presented with chest tightness similar to his initial [place]. EKG with nonspecific findings. Was given additional aspirin, nitro series with significant relief of his symptoms. Nitroglycerin patch was placed. Workup negative. Hemolyzed potassium 5.4. After evaluation of his records noting concerns for noncompliance and continued tobacco history. I did speak with cardiology Dr. Mtz, agrees that patient should stay in the hospital for cycling of his enzymes. He states that this is negative stress test can be obtained and if negative can be discharged home. I spoke with hospitalist, Dr. Higgins for admission. Treatment Plan: [] Disposition: Admission Impression: Acute chest pain This note was generated with [employer] dictation software. It may contain incorrect words, spelling, and punctuation that were not noted in review of the chart prior to signing ED Disposition - Plan for ED Patient: Disposition: Acute [facility] Chief Complaint: Chest Pain Diagnosis: Acute chest pain
--- NOTE | 2017-03-30 08:02 | ED.DCSUM_ITS ---
- ER Visit Summary Date of Service: 03/30/17 Chief Complaint: Chest pain History of Present Illness: The patient is a 51 M sudden left-sided chest tightness while getting ready for work at 430. Denied radicular symptoms. Denies nausea, dyspnea, diaphoresis. Tobacco history. Father with [place] at in his 30s. Patient states had a heart attack this past December with stenting, then he states he is brought back in January for additional stent. He is followed by Dr. Monte. He states he does not have time for cardiac rehab. He is on Plavix and states he is taking this. Pain is 8. He took a baby aspirin at home. States she has alcohol 2 times per week, denies any illicit drug use. He states he symptoms feels like his initial heart attack in December. Records reviewed, noted he has STEMI in December with 2 right coronary stents. He had admission January for acute chest pain symptoms with an NSTEMI. Records reporting that he missed some Plavix dose it is, there was concerns for in-stent stenosis. He had a troponin in the fives, he signed out AMA, however return for the catheterization that noted patent stents. He was medically managed and discharged home with outpatient follow-up. Physical Examination: General: Alert and oriented ?3, no acute distress HEENT: Normocephalic, atraumatic. Moist mucosa membranes Neck: supple, nontender. Cardiovascular: Regular rate and rhythm, no murmurs Respiratory: Normal breath sounds, symmetric, no distress Abdomen: Soft, nontender, nondistended Extremities: Nontender, no edema, pulses intact ?4 Neuro: no focal neurological deficits. Test Results: EKG: Normal sinus rhythm, rate of 67, no ST elevation. Isolated T -wave inversion in leads III. Troponin negative. Potassium 5.4 with moderate hemolyzed sedation. Creatinine 0.8. Emergency Department Course and Treatment: Patient presented with chest tightness similar to his initial [place]. EKG with nonspecific findings. Was given additional aspirin, nitro series with significant relief of his symptoms. Nitroglycerin patch was placed. Workup negative. Hemolyzed potassium 5.4. After evaluation of his records noting concerns for noncompliance and continued tobacco history. I did speak with cardiology Dr. Mtz, agrees that patient should stay in the hospital for cycling of his enzymes. He states that this is negative stress test can be obtained and if negative can be discharged home. I spoke with hospitalist, Dr. Higgins for admission. Treatment Plan: [] Disposition: Admission Impression: Acute chest pain This note was generated with [employer] dictation software. It may contain incorrect words, spelling, and punctuation that were not noted in review of the chart prior to signing ED Disposition - Plan for ED Patient: Disposition: Acute [facility] Chief Complaint: Chest Pain Diagnosis: Acute chest pain
[2017-03-30] MEDS: Nitroglycerin Oint 1 INCH PACKET TRANSDERM. (08:07)
--- NOTE | 2017-03-30 09:21 | PCM.HP.STD ---
Problem List (1) CAD (coronary artery disease), [place] coronary artery Status: Chronic Qualifiers: (2) History of PTCA Status: Chronic Comment: 12/23/16 2 bare metal stents to the RCA (3) Anxiety Status: Chronic (4) Noncompliance Status: Chronic History of Present Illness Date of Admission: 03/30/17 Chief Complaint: Chest pain. The patient is a 51 year old M with past medical history as mentioned above presented to the medicine because of chest pain. His symptoms started this morning after he woke up from sleep around 4 AM with left-sided chest pain, squeezing pain, 7 out of 10 in severity, not radiating, aggravated by bending forward or coughing without relieving factors and relieved by nitroglycerin that he received in the emergency room. He denied associated shortness of breath, dizziness, lightheadedness, nausea, vomiting or sweating. At this time, he mentioned that his pain is down to 1 out of 10. In the emergency room, his vital signs were stable. His routine blood work was remarkable for potassium of 5.4, otherwise normal. Troponin is negative. EKG revealed normal sinus rhythm, normal TN interval, normal QRS, normal QTC and no acute ischemic changes. Chest x-ray showed no acute findings. He is being admitted for atypical chest pain for evaluation. Past Medical History Past Medical History (Chronic Problems): Chronic Problems (Last Updated 01/17/17 @ 09:00 by BETH Ho) S/P coronary artery stent placement (Chronic) 12/23/16 distal and proximal RCA CAD (coronary artery disease), [place] coronary artery (Chronic) History of PTCA (Chronic) 12/23/16 2 bare metal stents to the RCA Smoking addiction (Chronic) Anxiety (Chronic) Noncompliance (Chronic) Allergies No Known Allergies Allergy (Verified 03/30/17 06:30) Home Medications: Ambulatory Orders Medication Instructions Recorded Aspirin E.C. [Ecotrin] 81 mg PO DAILY@0800 tablet 12/25/16 Nicotine [Nicoderm Cq] 21 mg TRANSDERM. DAILY #14 patch 12/25/16 atorvastatin 80 mg tablet 80 mg PO QHS 90 Days #90 tab 01/19/17 carvedilol 6.25 mg tablet 6.25 mg PO BID #180 tab 01/19/17 clopidogrel 75 mg tablet 75 mg PO DAILY #90 tab 01/19/17 losartan 25 mg tablet 25 mg PO DAILY #90 tab 01/19/17 ALPRAZolam [Xanax] 2 mg PO QHS PRN PRN 03/30/17 Fluoxetine [Prozac] 20 mg PO DAILY 03/30/17 Surgical History: herniorrhaphy Psychiatric History: Anxiety Lives: Spouse/ Significant Other Smoking Status: Current every day smoker Alcohol: None Drugs: None - *Family History Sibling History Items: Heart Disease Maternal History Items: No pertinent history Paternal History Items: No pertinent history Review of Systems Constitutional: Denies: Anorexia, Chills, Fever, Weakness Eyes: Denies: Blurred vision, Double vision, Drainage, Redness HEENT: Denies: Difficulty Hearing, Ear Pain, Eye Pain, Nasal Congestion, Sore Throat Cardiovascular: Reports: Chest Pain. Denies: Chest Tightness, Edema, Heaviness, Light Headedness, Palpitations, Syncope Respiratory: Denies: Cough, Hemoptysis, Shortness of Breath, Sputum production, Wheezing Gastrointestinal: Denies: Abdominal Pain, Constipation, Diarrhea, Nausea, Vomiting Genitourinary: Denies: Dysuria, Frequency, Hematuria Musculoskeletal: Denies: Arm Pain, Back Pain, Foot Pain Skin: Denies: Dryness, Rash Neurological: Denies: Balance problems, Blurred vision, Double vision, Slurred speech, Confusion, Headaches, Incoordination Psychiatric: Reports: Anxiety. Denies: Depression Endocrine: Denies: Change in Body Habitus, Polydipsia VTE Information - Inpt Only VTE Present on Admission: No VTE Mechan Device Prophylaxis: None VTE Pharm Prophylaxis ordered?: No - Physical Exam General: Alert, Oriented x3, Cooperative, No apparent distress HEENT: Atraumatic, PERRLA, EOMI Oral: Moist Mucosa, No Gingival or Mucosal Lesions/ Ulcerations Neck: Supple, No JVD, Negative Carotid Bruits, Trachea Midline, Thyroid Normal Size and Texture Lungs: Clear to auscultation, Normal air movement, No rhonchi, No wheeze, No rales Cardiovascular: Regular rate, Regular Rhythm, Normal S1, Normal S2, PMI Normal Abdomen: Bowel Sounds Present, Soft, Non Tender, Non-Distended, No Hepato-splenomegaly Extremities: No clubbing, No cyanosis, No edema Skin: No rashes, No breakdown Lymphatic: No Cervical, Supraclavicular, or Inguinal Adenopathy Neurological: Cranial nerves II-XII grossly intact, Motor Exam 5/5 strength throughout Psych/Mental Status: Normal Affect, Appropriate, Alert and oriented to time, place, person, mood and affect Vital Signs Temp Pulse Resp BP Pulse Ox 97.9 F 65 16 130/72 H 98 03/30/17 08:35 03/30/17 08:35 03/30/17 08:35 03/30/17 08:36 03/30/17 08:35 Oxygen Delivery Method Room Air Weight: 215 lb 2.738 oz Body Mass Index (BMI) 26.9 Laboratory Tests 03/30/17 03/30/17 Range/Units 06:40 06:40 WBC 6.9 (4.4-11.0) K/mm3 RBC 4.45 L (4.6-6.2) M/mm3 Hgb 14.5 (13.0-16.5) g/dl Hct 43.0 (40-54) % MCV 96.6 H (80-94) fL MCH 32.6 H (27.0-32.0) pg MCHC 33.7 (32-36) g/gl RDW 13.2 (11.6-14.6) % RDW Differential 47.1 H (35.1-43.9) fl Plt Count 221 (150-450) K/mm3 MPV 9.8 (6.2-12.0) fl Immature Gran % (Auto) 0.100 (0.0-0.9) % Neut % (Auto) 55.6 (47-70) % Lymph % (Auto) 29.0 (19-41) % [place] % (Auto) 10.7 H (0-10) % Eos % (Auto) 4.3 (0-5) % Baso % (Auto) 0.3 (0-1) % Absolute Neuts (auto) 3.8 (2.0-7.7) X10^3/uL Absolute Lymphs (auto) 2.01 (0.83-4.51) X10^3/ul Total Counted Not Reportable Sodium 140 (136-145) mmol/L Potassium 5.4 H (3.5-5.1) mmol/L Chloride 107 (98-107) mmol/L Carbon Dioxide 26.0 (21.0-32.0) mmol/L Anion Gap 7 (5-15) BUN 12 (7-18) mg/dL Creatinine 0.80 (0.70-1.30) mg/dL Estim Creat Clear Calc 130.56 ml/min Est GFR (MDRD) Af Amer 131 (>60) mL/min Est GFR (MDRD) Non-Af 109 (>60) mL/min BUN/Creatinine Ratio 15.1 (10-20) RATIO Glucose 110 H (74-106) mg/dL Calcium 8.4 L (8.5-10.1) mg/dL Troponin I < 0.02 (<0.06) ng/mL Clinical Impression(s) from Imaging Studies Chest X-Ray 03/30/17 06:46 IMPRESSION: Normal x-ray examination of the chest. Electronically Signed: Tanner Jiménez MD at 8:07 EST Tel [phone], Service support , Assessment/Plan This is a 51 years old male patient presented to the medicine because of chest pain and he is being admitted for evaluation. #1 atypical chest pain: In context of history of recent history of STEMI in December, status post stents to RCA. Also, patient had non-STEMI back in January, and he underwent repeat cardiac catheterization at that time 1 month after his STEMI and that revealed widely patent mid and distal RCA stents and nonobstructive coronary arteries and that non-STEMI attributed to elevated high blood pressure due to noncompliance. Today, his EKG was unremarkable, troponin is negative, chest x-ray without acute findings. Plan: Admit to PCU for observation, cardiac monitoring, serial cardiac enzymes, nuclear stress test if cardiac enzymes are negative. #2 hyperkalemia: Mild, potassium is 5.4. Likely because of losartan. Plan: IV fluids with normal saline, Kayexalate ?1, repeat potassium at 3 PM today. #2 CAD status post stents to RCA: Plan as above, continue aspirin, Plavix, statins and losartan, hold Coreg for stress test. #4 anxiety: Continue Xanax. #5 hyperlipidemia: Continue statins. #6 tobacco abuse: Continue NicoDerm patch. #7 DVT prophylaxis: Low risk patient, no prophylaxis indicated. This note was generated with Dragon dictation software. It may contain incorrect words, spelling, and punctuation that were not noted in checking the note before signing. Code Visit OBSV E&M: 97609 Initial observation care L3
--- NOTE | 2017-03-30 09:30 | HP.PCM_ITS ---
Problem List (1) CAD (coronary artery disease), [place] coronary artery Status: Chronic Qualifiers: (2) History of PTCA Status: Chronic Comment: 12/23/16 2 bare metal stents to the RCA (3) Anxiety Status: Chronic (4) Noncompliance Status: Chronic History of Present Illness Date of Admission: 03/30/17 Chief Complaint: Chest pain. The patient is a 51 year old M with past medical history as mentioned above presented to the medicine because of chest pain. His symptoms started this morning after he woke up from sleep around 4 AM with left-sided chest pain, squeezing pain, 7 out of 10 in severity, not radiating, aggravated by bending forward or coughing without relieving factors and relieved by nitroglycerin that he received in the emergency room. He denied associated shortness of breath, dizziness, lightheadedness, nausea, vomiting or sweating. At this time , he mentioned that his pain is down to 1 out of 10. In the emergency room, his vital signs were stable. His routine blood work was remarkable for potassium of 5.4, otherwise normal. Troponin is negative. EKG revealed normal sinus rhythm, normal [place] interval, normal QRS, normal QTC and no acute ischemic changes. Chest x-ray showed no acute findings. He is being admitted for atypical chest pain for evaluation. Past Medical History Past Medical History (Chronic Problems): Chronic Problems (Last Updated 01/17/17 @ 09:00 by BETH Ho) S/P coronary artery stent placement (Chronic) 12/23/16 distal and proximal RCA CAD (coronary artery disease), [place] coronary artery (Chronic) History of PTCA (Chronic) 12/23/16 2 bare metal stents to the RCA Smoking addiction (Chronic) Anxiety (Chronic) Noncompliance (Chronic) Allergies No Known Allergies Allergy (Verified 03/30/17 06:30) Home Medications: Ambulatory Orders Medication Instructions Recorded Aspirin E.C. [Ecotrin] 81 mg PO DAILY@0800 tablet 12/25/16 Nicotine [Nicoderm Cq] 21 mg TRANSDERM. DAILY #14 patch 12/25/16 atorvastatin 80 mg tablet 80 mg PO QHS 90 Days #90 tab 01/19/17 carvedilol 6.25 mg tablet 6.25 mg PO BID #180 tab 01/19/17 clopidogrel 75 mg tablet 75 mg PO DAILY #90 tab 01/19/17 losartan 25 mg tablet 25 mg PO DAILY #90 tab 01/19/17 ALPRAZolam [Xanax] 2 mg PO QHS PRN PRN 03/30/17 Fluoxetine [Prozac] 20 mg PO DAILY 03/30/17 Surgical History: herniorrhaphy Psychiatric History: Anxiety Lives: Spouse/ Significant Other Smoking Status: Current every day smoker Alcohol: None Drugs: None - *Family History Sibling History Items: Heart Disease Maternal History Items: No pertinent history Paternal History Items: No pertinent history Review of Systems Constitutional: Denies: Anorexia, Chills, Fever, Weakness Eyes: Denies: Blurred vision, Double vision, Drainage, Redness HEENT: Denies: Difficulty Hearing, Ear Pain, Eye Pain, Nasal Congestion, Sore Throat Cardiovascular: Reports: Chest Pain. Denies: Chest Tightness, Edema, Heaviness , Light Headedness, Palpitations, Syncope Respiratory: Denies: Cough, Hemoptysis, Shortness of Breath, Sputum production, Wheezing Gastrointestinal: Denies: Abdominal Pain, Constipation, Diarrhea, Nausea, Vomiting Genitourinary: Denies: Dysuria, Frequency, Hematuria Musculoskeletal: Denies: Arm Pain, Back Pain, Foot Pain Skin: Denies: Dryness, Rash Neurological: Denies: Balance problems, Blurred vision, Double vision, Slurred speech, Confusion, Headaches, Incoordination Psychiatric: Reports: Anxiety. Denies: Depression Endocrine: Denies: Change in Body Habitus, Polydipsia VTE Information - Inpt Only VTE Present on Admission: No VTE Mechan Device Prophylaxis: None VTE Pharm Prophylaxis ordered?: No - Physical Exam General: Alert, Oriented x3, Cooperative, No apparent distress HEENT: Atraumatic, PERRLA, EOMI Oral: Moist Mucosa, No Gingival or Mucosal Lesions/ Ulcerations Neck: Supple, No JVD, Negative Carotid Bruits, Trachea Midline, Thyroid Normal Size and Texture Lungs: Clear to auscultation, Normal air movement, No rhonchi, No wheeze, No rales Cardiovascular: Regular rate, Regular Rhythm, Normal S1, Normal S2, PMI Normal Abdomen: Bowel Sounds Present, Soft, Non Tender, Non-Distended, No Hepato- splenomegaly Extremities: No clubbing, No cyanosis, No edema Skin: No rashes, No breakdown Lymphatic: No Cervical, Supraclavicular, or Inguinal Adenopathy Neurological: Cranial nerves II-XII grossly intact, Motor Exam 5/5 strength throughout Psych/Mental Status: Normal Affect, Appropriate, Alert and oriented to time, place, person, mood and affect Vital Signs Temp Pulse Resp BP Pulse Ox 97.9 F 65 16 130/72 H 98 03/30/17 08:35 03/30/17 08:35 03/30/17 08:35 03/30/17 08:36 03/30/17 08:35 Oxygen Delivery Method Room Air Weight: 215 lb 2.738 oz Body Mass Index (BMI) 26.9 Laboratory Tests 3 03/30/17 03/30/17 Range/Units 06:40 06:40 WBC 6.9 (4.4-11.0) K/mm3 RBC 4.45 L (4.6-6.2) M/mm3 Hgb 14.5 (13.0-16.5) g/dl Hct 43.0 (40-54) % MCV 96.6 H (80-94) fL MCH 32.6 H (27.0-32.0) pg MCHC 33.7 (32-36) g/gl RDW 13.2 (11.6-14.6) % RDW Differential 47.1 H (35.1-43.9) fl Plt Count 221 (150-450) K/mm3 MPV 9.8 (6.2-12.0) fl Immature Gran % (Auto) 0.100 (0.0-0.9) % Neut % (Auto) 55.6 (47-70) % Lymph % (Auto) 29.0 (19-41) % [place] % (Auto) 10.7 H (0-10) % Eos % (Auto) 4.3 (0-5) % Baso % (Auto) 0.3 (0-1) % Absolute Neuts (auto) 3.8 (2.0-7.7) X10^3/uL Absolute Lymphs (auto) 2.01 (0.83-4.51) X10^3/ul Total Counted Not Reportable Sodium 140 (136-145) mmol/L Potassium 5.4 H (3.5-5.1) mmol/L Chloride 107 (98-107) mmol/L Carbon Dioxide 26.0 (21.0-32.0) mmol/L Anion Gap 7 (5-15) BUN 12 (7-18) mg/dL Creatinine 0.80 (0.70-1.30) mg/dL Estim Creat Clear Calc 130.56 ml/min Est GFR (MDRD) Af Amer 131 (>60) mL/min Est GFR (MDRD) Non-Af 109 (>60) mL/min BUN/Creatinine Ratio 15.1 (10-20) RATIO Glucose 110 H (74-106) mg/dL Calcium 8.4 L (8.5-10.1) mg/dL Troponin I < 0.02 (<0.06) ng/mL Clinical Impression(s) from Imaging Studies Chest X-Ray 03/30/17 06:46 IMPRESSION: Normal x-ray examination of the chest. Electronically Signed: Tanner Jiménez MD at 8:07 EST Tel [phone], Service support , Assessment/Plan This is a 51 years old male patient presented to the medicine because of chest pain and he is being admitted for evaluation. #1 atypical chest pain: In context of history of recent history of STEMI in December, status post stents to RCA. Also, patient had non-STEMI back in January, and he underwent repeat cardiac catheterization at that time 1 month after his STEMI and that revealed widely patent mid and distal RCA stents and nonobstructive coronary arteries and that non-STEMI attributed to elevated high blood pressure due to noncompliance. Today, his EKG was unremarkable, troponin is negative, chest x-ray without acute findings. Plan: Admit to PCU for observation, cardiac monitoring, serial cardiac enzymes, nuclear stress test if cardiac enzymes are negative. #2 hyperkalemia: Mild, potassium is 5.4. Likely because of losartan. Plan: IV fluids with normal saline, Kayexalate ?1, repeat potassium at 3 PM today. #2 CAD status post stents to RCA: Plan as above, continue aspirin, Plavix, statins and losartan, hold Coreg for stress test. #4 anxiety: Continue Xanax. #5 hyperlipidemia: Continue statins. #6 tobacco abuse: Continue NicoDerm patch. #7 DVT prophylaxis: Low risk patient, no prophylaxis indicated. This note was generated with [employer] software. It may contain incorrect words, spelling, and punctuation that were not noted in checking the note before signing. Code Visit OBSV E&M: 14784 Initial observation care L3
[2017-03-30] MEDS: Sodium Polystyrene Sulfonate 15 GM/60 ML UDC PO (09:45)
[2017-03-30 14:39] LABS: Potassium 4.1 mmol/L (3.5-5.1)
--- NOTE | 2017-03-30 15:52 | PCM.DC ---
You will use the following diet at home:: Cardiac Your food should be the consistency of: Regular Discharge Activity: Return to Normal Activity Weight Bearing Status: Full weight bearing Call your doctor if you observe: Fever of 101 or Higher, Shortness of breath, Dizziness, Fainting spells, Chest pain, Increased palpitations (irregular heartbeat), Uncontrolled pain Allergies/Adverse Reactions: Allergies No Known Allergies Allergy (Verified 03/30/17 06:30) Medications to take at Discharge Aspirin E.C. [Ecotrin] 81 mg PO DAILY@0800 tablet 12/25/16 Nicotine [Nicoderm Cq] 21 mg TRANSDERM. DAILY #14 patch 12/25/16 atorvastatin 80 mg tablet 80 mg PO QHS 90 Days #90 tab 01/19/17 carvedilol 6.25 mg tablet 6.25 mg PO BID #180 tab 01/19/17 clopidogrel 75 mg tablet 75 mg PO DAILY #90 tab 01/19/17 losartan 25 mg tablet 25 mg PO DAILY #90 tab 01/19/17 ALPRAZolam [Xanax] 2 mg PO QHS PRN PRN 03/30/17 Fluoxetine [Prozac] 20 mg PO DAILY 03/30/17 Primary Care Physician: Kendell Lyons DO [Primary Care Provider] - Please follow up with your Primary Care Physician in: 2 weeks.
--- NOTE | 2017-03-30 18:35 | STRESSREP ---
Stress Test Report Date: 03/30/2017 Procedure: Exercise tolerance test/imaging study Indications: Chest pain; shortness of breath/dyspnea Consent: Per the patient Procedure: The patient exercised on a Bryan protocol for 4 minutes completing stage 1 and 1 minute of stage II achieving a peak heart rate of 139 bpm (82 % predicted maximal heart rate) with a peak blood pressure 158/70 mmHg and a peak MET capacity of 6 METs. The baseline ECG demonstrated normal sinus rhythm. The peak exercise ECG demonstrated [place]/motion artifact with no obvious ECG changes. There were rare PACs/PVCs during recovery The functional capacity was considered decreased. There was no complaint of chest discomfort during exercise or recovery. The examination was discontinued secondary to dyspnea. Impression: 1. Technically adequate (percent predicted maximal heart rate greater than 85%) exercise tolerance test 2. Peak exercise ECG with somatic/motion artifact with no obvious ECG changes 3. Rare PAC/PVCs during recovery. 4. Pharmacologic (Regadenoson) evaluation pending Date: 03/30/2017 Procedure: Pharmacologic stress nuclear imaging study Indications: Chest pain; shortness of breath/dyspnea Consent: Per patient Procedure: The patient underwent pharmacologic (Regadenoson) evaluation with a peak heart rate of 104 per minute and a peak blood pressure of 138/72 mmHg. The baseline ECG demonstrated normal sinus rhythm. The peak pharmacologic ECG demonstrated no obvious ECG changes. There was a rare PVC pretest. There was no complaint of chest discomfort during pharmacologic infusion or recovery. The examination was discontinued secondary to completion of protocol. Impression: 1. Pharmacologic (Regadenoson) evaluation 2. Peak pharmacologic ECG with no obvious ECG changes. 3. Rare PVC pretest 4. Nuclear images pending Myocardial perfusion imaging study: Technique: The patient was injected with 14.3 millicuries of technetium 99m Cardiolite and subsequently rest SPECT Cardiolite nuclear imaging was obtained in the horizontal long, vertical long, and short axis views. The patient exercised on a Bryan protocol for 4 minutes completing stage 1 and 1 minute of stage II achieving a peak heart rate of 139 bpm (82 % predicted maximal heart rate) with a peak blood pressure 158/70 mmHg and a peak MET capacity of 6 METs. The patient underwent pharmacologic (Regadenoson) evaluation with a peak heart rate of 104 per minute and a peak blood pressure of 38/72 mmHg. The patient was injected with 44.2 millicuries of technetium 99m Cardiolite and subsequently stress SPECT Cardiolite nuclear imaging was obtained in the horizontal long, vertical long, and short axis views. A gated Cardiolite study at peak stress was obtained. Interpretation: Rest and stress SPECT Cardiolite nuclear imaging status post realignment, normalization, and attenuation correction demonstrate extracardiac/gastrointestinal tracer uptake near the inferior segments and a small area of subtle diminished tracer uptake in the apical areas. There is end systolic thickening and brightening. The gated Cardiolite study demonstrates myocardial thickening and inward wall motion. The reported LVEF is 56%. Impression: 1. Rest and stress SPECT Cardiolite nuclear imaging demonstrates myocardial perfusion changes appearing compatible with physiologic apical thinning with no myocardial perfusion changes consider diagnostic for associated stress-induced myocardial ischemia or previous myocardial injury/infarction. 2. The gated Cardiolite study reports an LVEF of 56% This note was generated with [employer]oon[employer] software. It may contain incorrect words, spelling, and punctuation that were not noted in checking the note before signing.
--- NOTE | 2017-03-30 18:44 | STRESSREP_ITS ---
Stress Test Report Date: 03/30/2017 Procedure: Exercise tolerance test/imaging study Indications: Chest pain; shortness of breath/dyspnea Consent: Per the patient Procedure: The patient exercised on a Bryan protocol for 4 minutes completing stage 1 and 1 minute of stage II achieving a peak heart rate of 139 bpm (82 % predicted maximal heart rate) with a peak blood pressure 158/70 mmHg and a peak MET capacity of 6 METs. The baseline ECG demonstrated normal sinus rhythm. The peak exercise ECG demonstrated [place]/motion artifact with no obvious ECG changes. There were rare PACs/PVCs during recovery The functional capacity was considered decreased. There was no complaint of chest discomfort during exercise or recovery. The examination was discontinued secondary to dyspnea. Impression: 1. Technically adequate (percent predicted maximal heart rate greater than 85% ) exercise tolerance test 2. Peak exercise ECG with somatic/motion artifact with no obvious ECG changes 3. Rare PAC/PVCs during recovery. 4. Pharmacologic (Regadenoson) evaluation pending Date: 03/30/2017 Procedure: Pharmacologic stress nuclear imaging study Indications: Chest pain; shortness of breath/dyspnea Consent: Per patient Procedure: The patient underwent pharmacologic (Regadenoson) evaluation with a peak heart rate of 104 per minute and a peak blood pressure of 138/72 mmHg. The baseline ECG demonstrated normal sinus rhythm. The peak pharmacologic ECG demonstrated no obvious ECG changes. There was a rare PVC pretest. There was no complaint of chest discomfort during pharmacologic infusion or recovery. The examination was discontinued secondary to completion of protocol. Impression: 1. Pharmacologic (Regadenoson) evaluation 2. Peak pharmacologic ECG with no obvious ECG changes. 3. Rare PVC pretest 4. Nuclear images pending Myocardial perfusion imaging study: Technique: The patient was injected with 14.3 millicuries of technetium 99m Cardiolite and subsequently rest SPECT Cardiolite nuclear imaging was obtained in the horizontal long, vertical long, and short axis views. The patient exercised on a Bryan protocol for 4 minutes completing stage 1 and 1 minute of stage II achieving a peak heart rate of 139 bpm (82 % predicted maximal heart rate) with a peak blood pressure 158/70 mmHg and a peak MET capacity of 6 METs. The patient underwent pharmacologic (Regadenoson) evaluation with a peak heart rate of 104 per minute and a peak blood pressure of 38/72 mmHg. The patient was injected with 44.2 millicuries of technetium 99m Cardiolite and subsequently stress SPECT Cardiolite nuclear imaging was obtained in the horizontal long, vertical long, and short axis views. A gated Cardiolite study at peak stress was obtained. Interpretation: Rest and stress SPECT Cardiolite nuclear imaging status post realignment, normalization, and attenuation correction demonstrate extracardiac/ gastrointestinal tracer uptake near the inferior segments and a small area of subtle diminished tracer uptake in the apical areas. There is end systolic thickening and brightening. The gated Cardiolite study demonstrates myocardial thickening and inward wall motion. The reported LVEF is 56%. Impression: 1. Rest and stress SPECT Cardiolite nuclear imaging demonstrates myocardial perfusion changes appearing compatible with physiologic apical thinning with no myocardial perfusion changes consider diagnostic for associated stress-induced myocardial ischemia or previous myocardial injury/infarction. 2. The gated Cardiolite study reports an LVEF of 56% This note was generated with [employer] software. It may contain incorrect words, spelling, and punctuation that were not noted in checking the note before signing.
--- NOTE | 2017-03-31 12:48 | PCM.DC.SUM ---
Discharge Date and Diagnosis Date of Admission: 03/30/17 Date of Discharge: 03/30/17 - Primary Discharge Diagnosis Chest pain, negative cardiac workup including stress test. - Secondary Discharge Diagnosis Chronic Problems (Last Updated 03/30/17 @ 09:21 by Merle Higgins MD) S/P coronary artery stent placement (Chronic) 12/23/16 distal and proximal RCA CAD (coronary artery disease), [place] coronary artery (Chronic) History of PTCA (Chronic) 12/23/16 2 bare metal stents to the RCA Smoking addiction (Chronic) Anxiety (Chronic) Noncompliance (Chronic) Hospital Course and Treatment Imaging Results: Clinical Impression(s) from Imaging Studies Chest X-Ray 03/30/17 06:46 IMPRESSION: Normal x-ray examination of the chest. Electronically Signed: Tanner Jiménez MD at 8:07 EST Tel [phone], Service support , Operations: None Procedures: EKG, Stress test Summary of Care Provided: The patient is a 51 year old M admitted because of chest pain for evaluation. He had a recent history of STEMI status post stents back in December,. One month later, he had non-STEMI on January, and he underwent cardiac catheterization that revealed widely patent mid and distal RCA stents with nonobstructive coronary arteries and that non-ST elevation IN attributed to poorly controlled hypertension. During this admission, his EKG revealed normal sinus rhythm without acute ischemic changes. Troponin was negative ?3. His chest x-ray showed no acute findings. He underwent nuclear stress test that was reported as negative without evidence of stress-induced myocardial ischemia. He was found to have mild hyperkalemia which is attributed to losartan. His potassium was 5.4, received 1 dose of Kayexalate and his potassium came down to 4.1. Acute coronary syndrome ruled out. Patient discharged home in a stable medical condition, discharged on his chronic home medication without any changes, recommended follow-up with PCP in 2 weeks and follow-up with cardiology as scheduled. Discharge Activity: Return to Normal Activity Weight Bearing Status: Full weight bearing Call your doctor if you observe: Fever of 101 or Higher, Shortness of breath, Dizziness, Fainting spells, Chest pain, Increased palpitations (irregular heartbeat), Uncontrolled pain Home Medications: Medications to take at Discharge Aspirin E.C. [Ecotrin] 81 mg PO DAILY@0800 tablet 12/25/16 Nicotine [Nicoderm Cq] 21 mg TRANSDERM. DAILY #14 patch 12/25/16 atorvastatin 80 mg tablet 80 mg PO QHS 90 Days #90 tab 01/19/17 carvedilol 6.25 mg tablet 6.25 mg PO BID #180 tab 01/19/17 clopidogrel 75 mg tablet 75 mg PO DAILY #90 tab 01/19/17 losartan 25 mg tablet 25 mg PO DAILY #90 tab 01/19/17 ALPRAZolam [Xanax] 2 mg PO QHS PRN PRN 03/30/17 Fluoxetine [Prozac] 20 mg PO DAILY 03/30/17 Primary Care Physician: Kendell Lyons DO [Primary Care Provider] - Please follow up with your Primary Care Physician in: 2 weeks. Disposition: Home Minutes spent on discharge:: 25 Patient Condition:: Stable Meaningful Use Info Meaningful Use Diagnoses (Choose all that apply): None applicable Code Visit OBSV E&M: 03069 Observ/hosp same date L1
--- NOTE | 2017-03-31 12:51 | DS.PCM_ITS ---
Discharge Date and Diagnosis Date of Admission: 03/30/17 Date of Discharge: 03/30/17 - Primary Discharge Diagnosis Chest pain, negative cardiac workup including stress test. - Secondary Discharge Diagnosis Chronic Problems (Last Updated 03/30/17 @ 09:21 by Merle Higgins MD) S/P coronary artery stent placement (Chronic) 12/23/16 distal and proximal RCA CAD (coronary artery disease), [place] coronary artery (Chronic) History of PTCA (Chronic) 12/23/16 2 bare metal stents to the RCA Smoking addiction (Chronic) Anxiety (Chronic) Noncompliance (Chronic) Hospital Course and Treatment Imaging Results: Clinical Impression(s) from Imaging Studies Chest X-Ray 03/30/17 06:46 IMPRESSION: Normal x-ray examination of the chest. Electronically Signed: Tanner Jiménez MD at 8:07 EST Tel [phone], Service support , Operations: None Procedures: EKG, Stress test Summary of Care Provided: The patient is a 51 year old M admitted because of chest pain for evaluation. He had a recent history of STEMI status post stents back in December,. One month later, he had non-STEMI on January, and he underwent cardiac catheterization that revealed widely patent mid and distal RCA stents with nonobstructive coronary arteries and that non-ST elevation [place] attributed to poorly controlled hypertension. During this admission, his EKG revealed normal sinus rhythm without acute ischemic changes. Troponin was negative ?3. His chest x-ray showed no acute findings. He underwent nuclear stress test that was reported as negative without evidence of stress-induced myocardial ischemia. He was found to have mild hyperkalemia which is attributed to losartan. His potassium was 5.4, received 1 dose of Kayexalate and his potassium came down to 4.1. Acute coronary syndrome ruled out. Patient discharged home in a stable medical condition, discharged on his chronic home medication without any changes, recommended follow-up with PCP in 2 weeks and follow-up with cardiology as scheduled. Discharge Activity: Return to Normal Activity Weight Bearing Status: Full weight bearing Call your doctor if you observe: Fever of 101 or Higher, Shortness of breath, Dizziness, Fainting spells, Chest pain, Increased palpitations (irregular heartbeat), Uncontrolled pain Home Medications: Medications to take at Discharge Aspirin E.C. [Ecotrin] 81 mg PO DAILY@0800 tablet 12/25/16 Nicotine [Nicoderm Cq] 21 mg TRANSDERM. DAILY #14 patch 12/25/16 atorvastatin 80 mg tablet 80 mg PO QHS 90 Days #90 tab 01/19/17 carvedilol 6.25 mg tablet 6.25 mg PO BID #180 tab 01/19/17 clopidogrel 75 mg tablet 75 mg PO DAILY #90 tab 01/19/17 losartan 25 mg tablet 25 mg PO DAILY #90 tab 01/19/17 ALPRAZolam [Xanax] 2 mg PO QHS PRN PRN 03/30/17 Fluoxetine [Prozac] 20 mg PO DAILY 03/30/17 Primary Care Physician: Kendell Lyons DO [Primary Care Provider] - Please follow up with your Primary Care Physician in: 2 weeks. Disposition: Home Minutes spent on discharge:: 25 Patient Condition:: Stable Meaningful Use Info Meaningful Use Diagnoses (Choose all that apply): None applicable Code Visit OBSV E&M: 84571 Observ/hosp same date L1
== END 2017-03-30 15:52 | disposition home or self-care (01) ==
LOC: ED 06:55 → PCU 07:46
PROVIDERS: Admitting Provider Hospitalist; Emergency Provider Emergency Medicine; Family Provider Family Medicine; PCP Family Medicine; Visit Provider Hospitalist
DX: R07.89 Other chest pain (principal); I25.2 Old myocardial infarction; F41.9 Anxiety disorder, unspecified; I25.10 Atherosclerotic heart disease of native coronary artery without angina pectoris; F17.200 Nicotine dependence, unspecified, uncomplicated; E78.5 Hyperlipidemia, unspecified; E87.5 Hyperkalemia; Z95.5 Presence of coronary angioplasty implant and graft; Z79.02 Long term (current) use of antithrombotics/antiplatelets; Z79.82 Long term (current) use of aspirin; Z79.899 Other long term (current) drug therapy; Z91.19 Patient's noncompliance with other medical treatment and regimen
CPT/HCPCS: 36415; 71045; 78452; 80048; 84132; 84484; 85025; 93005; 93017; 99218; 99285; 99406; A9500; A4216; G0378; J2785

== ENCOUNTER 2017-05-27 08:53 | Emergency (ER) | payer BC, SELFPAY ==
[2017-01-12 13:36] VITALS: BMI 26.6
[2017-05-27 08:55] VITALS: BP 125/87; PULSE 62; RESP 18; TEMP 36.4; O2SAT 100; BMI 27.1
--- NOTE | 2017-05-27 09:16 | ED.VISSUMM ---
- ER Visit Summary Date of Service: 05/27/17 Chief Complaint: Intermittent left lower back pain with radiation to left lower extremity and numbness left foot History of Present Illness: The patient is a 51 M who has history of coronary disease and is taking Plavix presents with complaint of left lower back pain and bruising more easily the past 4-5 days. Patient states the pain started 4-5 days ago. He localizes the left lower back. He reports intermittent radiation to the popliteal fossa on the left side. He also reports intermittent numbness of his entire left foot. He denies bowel or bladder dysfunction. He denies saddle paresthesia or anesthesia. He denies foot drop. He denies weakness in his thigh muscles going up or down steps. He denies any abdominal pain. He has also reports bruising easily past 5 days. He has no history of trauma. Of note review of his medication indicates he is on Plavix. He denies black or maroon stool. He denies hematuria. He denies joint pain or swelling. Physical Examination: Vitals are remarkable for slight elevation blood pressure 125/87. HEENT is unremarkable. Heart is regular without murmur, gallop or rub. S1 and S2 are normal. Lungs are clear to auscultation with good movement of air bilaterally. Abdomen is soft nontender with no palpable cell mass abdominal bruit. There is no evidence inguinal hernia. There is no evidence of trauma to the torso or back. There is no pain palpation midline or right or left CVA region. Straight leg test is negative bilaterally. He complained of pain left lower back at 45?. Patella and ankle reflex are 1+. EHL is present bilaterally. There is no weakness with plantar and dorsiflexion of the foot either. There is no clonus or Babinski sign noted. DP and PT pulses are palpable and symmetric. He has significant bruises noted lower extremities. He also has bruises right and left forearm. Test Results: See is unremarkable. PT/INR is normal. Emergency Department Course and Treatment: Patient was medicated with 30 mA of Toradol since he drove himself to the emergency department from work. To assess his bruising a CBC was obtained to assess platelet count and PT. Treatment Plan: Patient was reassessed at 0951. He states he has had improvement after treatment with Toradol. Therefore, will discharge with prescription for Toradol. He was informed he is bruising secondary to the Plavix. Disposition: Discharged home with appropriate home-going instructions Impression: 1. Left lower back pain of muscular skeletal etiology with radiation to the popliteal fossa 2. History of degenerative disc disease and remote history of herniated disc 3. Bruising easily secondary to Plavix 4. History of coronary disease This note was generated with [employer] dictation software. It may contain incorrect words, spelling, and punctuation that were not noted in review of the chart prior to signing ED Disposition - Plan for ED Patient: Disposition: Home or Assisted Living Chief Complaint: Back Instructions: ED Neck Back Pain General Prescriptions: Ketorolac [Toradol] 10 mg PO Q6H #20 tab Referrals: Kendell Lyons DO [Primary Care Provider] - 1 Week if not improving Additional Instructions: Your prescription was electronically transmitted to [facility] pharmacy; the pharmacy you designated as your pharmacy of choice.
[2017-05-27] MEDS: Ketorolac 30 MG/ML Syringe IV (09:21)
--- NOTE | 2017-05-27 09:23 | ED.DCSUM_ITS ---
- ER Visit Summary Date of Service: 05/27/17 Chief Complaint: Intermittent left lower back pain with radiation to left lower extremity and numbness left foot History of Present Illness: The patient is a 51 M who has history of coronary disease and is taking Plavix presents with complaint of left lower back pain and bruising more easily the past 4-5 days. Patient states the pain started 4- 5 days ago. He localizes the left lower back. He reports intermittent radiation to the popliteal fossa on the left side. He also reports intermittent numbness of his entire left foot. He denies bowel or bladder dysfunction. He denies saddle paresthesia or anesthesia. He denies foot drop. He denies weakness in his thigh muscles going up or down steps. He denies any abdominal pain. He has also reports bruising easily past 5 days. He has no history of trauma. Of note review of his medication indicates he is on Plavix. He denies black or maroon stool. He denies hematuria. He denies joint pain or swelling. Physical Examination: Vitals are remarkable for slight elevation blood pressure 125/87. HEENT is unremarkable. Heart is regular without murmur, gallop or rub. S1 and S2 are normal. Lungs are clear to auscultation with good movement of air bilaterally. Abdomen is soft nontender with no palpable cell mass abdominal bruit. There is no evidence inguinal hernia. There is no evidence of trauma to the torso or back. There is no pain palpation midline or right or left CVA region. Straight leg test is negative bilaterally. He complained of pain left lower back at 45?. Patella and ankle reflex are 1+. EHL is present bilaterally. There is no weakness with plantar and dorsiflexion of the foot either. There is no clonus or Babinski sign noted. DP and PT pulses are palpable and symmetric. He has significant bruises noted lower extremities. He also has bruises right and left forearm. Test Results: See is unremarkable. PT/INR is normal. Emergency Department Course and Treatment: Patient was medicated with 30 mA of Toradol since he drove himself to the emergency department from work. To assess his bruising a CBC was obtained to assess platelet count and PT. Treatment Plan: Patient was reassessed at 0951. He states he has had improvement after treatment with Toradol. Therefore, will discharge with prescription for Toradol. He was informed he is bruising secondary to the Plavix. Disposition: Discharged home with appropriate home-going instructions Impression: 1. Left lower back pain of muscular skeletal etiology with radiation to the popliteal fossa 2. History of degenerative disc disease and remote history of herniated disc 3. Bruising easily secondary to Plavix 4. History of coronary disease This note was generated with [employer] dictation software. It may contain incorrect words, spelling, and punctuation that were not noted in review of the chart prior to signing ED Disposition - Plan for ED Patient: Disposition: Home or Assisted Living Chief Complaint: Back Instructions: ED Neck Back Pain General Prescriptions: Ketorolac [Toradol] 10 mg PO Q6H #20 tab Referrals: Kendell Lyons DO [Primary Care Provider] - 1 Week if not improving Additional Instructions: Your prescription was electronically transmitted to [facility] pharmacy; the pharmacy you designated as your pharmacy of choice.
[2017-05-27 09:32] LABS: Hematocrit 41.8 % (40-54); Hemoglobin 14.1 g/dl (13.0-16.5); Mean Corp Hgb Conc 33.7 g/gl (32-36); Mean Corpuscular Hgb 33.3 pg (27.0-32.0); Mean Corpuscular Volume 98.6 fL (80-94); Mean Platelet Vol. 9.5 fl (6.2-12.0); Platelet Count 188 K/mm3 (150-450); RBC Distribution Width CV 12.4 % (11.6-14.6); RBC Distribution Width SD 44.1 fl (35.1-43.9); Red Blood Count 4.24 M/mm3 (4.6-6.2); White Blood Count 6.5 K/mm3 (4.4-11.0)
[2017-05-27 09:33] LABS: Scan Indicated on CBC? Y/N NO
[2017-05-27 09:40] LABS: Prothrombin Time (Protime)PT. 12.7 SECONDS (11.7-14.9)
[2017-05-27 10:14] VITALS: BP 143/105; PULSE 72; RESP 15; O2SAT 95
--- NOTE | 2017-05-27 10:16 | CASEMGMT ---
Social Work Note Referral made to SW as the pt is requesting information on donating his body to science. Introduced self and role at [facility]. The pt states that he just wants to write on paper that he wants his body donated. Inform that we can complete a living will, but he will also need to reach out to facility that accepts cadavers for research. Provide the pt with information on [facility] - Body Donor Program, and [facility]. Completed Living Will and HCPOA with the pt and informed that SW will copy forms and provide him with the originals. Pt left before SW returning. Copies sent to medical records. Originals to be mailed to pt. Mary Ro, SUPPLY CHAIN PROCUREMENT MANAGER, DRYING MACHINE BACK TENDER
== END 2017-05-27 10:16 | disposition home or self-care (01) ==
PROVIDERS: Emergency Provider Emergency Medicine; Family Provider Family Medicine; PCP Family Medicine
DX: M54.5 Low back pain (principal); M51.36 Other intervertebral disc degeneration, lumbar region; M51.26 Other intervertebral disc displacement, lumbar region; R23.3 Spontaneous ecchymoses; Z79.02 Long term (current) use of antithrombotics/antiplatelets; I25.10 Atherosclerotic heart disease of native coronary artery without angina pectoris; E78.00 Pure hypercholesterolemia, unspecified; F32.9 Major depressive disorder, single episode, unspecified; Z79.899 Other long term (current) drug therapy; Z72.0 Tobacco use
CPT/HCPCS: 85027; 85610; 96374; 99283; A4216

== ENCOUNTER 2017-07-01 21:39 | Emergency (ER) | payer BC, SELFPAY ==
[2017-01-12 13:36] VITALS: BMI 26.6
[2017-07-01 21:40] VITALS: BP 121/85; PULSE 83; RESP 16; TEMP 36.7; O2SAT 93; BMI 27.1
--- NOTE | 2017-07-01 22:36 | EKG12_ITS ---
Test Reason : CP Blood Pressure : / mmHG Vent. Rate : 082 BPM Atrial Rate : 082 BPM P-R Int : 174 ms QRS Dur : 088 ms QT Int : 370 ms P-R-T Axes : 042 -19 027 degrees QTc Int : 432 ms Normal sinus rhythm Inferior infarct , age undetermined , cannot be excluded Abnormal ECG Confirmed by ANTONIO VENTURA, ONEIDA ([id number]), publication editor ASHLEY SHIELDS ([id number]) on 07/06/2017 1:57:31 PM Referred By: Confirmed By:ONEIDA ALVAREZ MD
--- NOTE | 2017-07-01 22:52 | ED.RN ---
PT REFUSED ALL TREATMENT. EMD AWARE. AMA FORM SIGNED. PT CURSING VERY LOUDLY ON HIS CELL PHONE. ESCORTED OUT OF ED.
--- NOTE | 2017-07-02 01:14 | ED.VISSUMM ---
- ER Visit Summary Date of Service: 07/02/17 Chief Complaint: Chest pain History of Present Illness: The patient is a 51 M who states that for the past 3 days he has had a constant left-sided chest pressure described as a squeezing sensation going to his left arm. He states he has had prior heart attack and stents placement. Patient states he has been under a lot of stress due to conflict with his bosses. States he has had a couple of beers today but does not feel intoxicated. He had heart catheterization at the end of last year as well as stress testing in March of this year. The patient states get me the fuck out of here. Physical Examination: Afebrile vital signs are stable Gen: Well-nourished well-developed Head: Normocephalic atraumatic Eyes: Perrl EOMI ENT: TMs clear no rhinorrhea moist mucous membranes Neck: Supple no lymphadenopathy no JVD nontender CVS: Regular rate rhythm no murmurs normal S1-S2 Respiratory: No distress clear to auscultation bilaterally chest nontender Abdomen: Soft nontender nondistended normal bowel sounds no masses Back: Nontender Extremity: Nontender no edema Skin: Normal color no rash Neuro: alert orientated ?3 CN II-XII intact normal strength sensation reflexes gait cerebellar Psych: Agitated Test Results: EKG done upon his arrival shows a sinus rhythm at a rate of 82 Emergency Department Course and Treatment: After my evaluation the patient refuses any further treatment. He signed out AMA. He was advised to call for a ride. The patient began cursing at whomever he was speaking at the phone loudly and even with the door shut numerous family members from surrounding rooms came out to inquire what was wrong. Patient was asked to keep his voice down and he could not do this. The patient was therefore asked to leave the department and the campus. The patient was escorted out of the building by this physician as security was unable to respond from their position. Impression: 1. Chest pain 2. Left AGAINST MEDICAL ADVICE This note was generated with [employer] dictation software. It may contain incorrect words, spelling, and punctuation that were not noted in review of the chart prior to signing ED Disposition - Plan for ED Patient: Disposition: Against Medical Advice Chief Complaint: Chest Pain Referrals: Kendell Lyons DO [Primary Care Provider] -
== END 2017-07-01 23:15 | disposition left against medical advice (07) ==
LOC: ED 22:56
PROVIDERS: Emergency Provider Emergency Medicine; Family Provider Family Medicine; PCP Family Medicine
DX: R07.9 Chest pain, unspecified (principal); Z53.21 Procedure and treatment not carried out due to patient leaving prior to being seen by health care provider; I25.10 Atherosclerotic heart disease of native coronary artery without angina pectoris; I10 Essential (primary) hypertension; E78.00 Pure hypercholesterolemia, unspecified; F41.9 Anxiety disorder, unspecified; Z95.5 Presence of coronary angioplasty implant and graft; Z79.02 Long term (current) use of antithrombotics/antiplatelets; Z79.899 Other long term (current) drug therapy; Z72.0 Tobacco use
CPT/HCPCS: 93005; 99283

== ENCOUNTER 2017-07-26 12:40 | Emergency (ER) | payer SELFPAY ==
[2017-01-12 13:36] VITALS: BMI 26.6
[2017-07-26 12:41] VITALS: BP 123/76; PULSE 84; RESP 20; TEMP 36.6; O2SAT 96; BMI 27.1
[2017-07-26 13:09] LABS: Hematocrit 44.6 % (40-54); Hemoglobin 15.6 g/dl (13.0-16.5); Mean Corpuscular Hgb 33.2 pg (27.0-32.0); Mean Corpuscular Volume 94.9 fL (80-94); Mean Platelet Vol. 9.2 fl (6.2-12.0); Platelet Count 241 K/mm3 (150-450); RBC Distribution Width CV 12.9 % (11.6-14.6); RBC Distribution Width SD 43.9 fl (35.1-43.9); White Blood Count 7.8 K/mm3 (4.4-11.0)
[2017-07-26 13:10] LABS: Scan Indicated on CBC? Y/N NO
[2017-07-26 13:24] LABS: ALB/GLOB Ratio 1.1 RATIO (0.9-2.4); AST(SGOT) 22 U/L (15-37); Alanine Aminotransfer ALT/SGPT 33 U/L (16-61); Alkaline Phosphatase 64 U/L (45-117); Anion Gap 9 (5-15); BUN 5 mg/dL (7-18); BUN/Creat Ratio 7.1 RATIO (10-20); Bilirubin, Direct 0.13 mg/dL (0.00-0.30); Calcium,Total 8.2 mg/dL (8.5-10.1); Chloride 106 mmol/L (98-107); Creatinine, Serum 0.71 mg/dL (0.70-1.30); EST Glomerular Filtration Rate 125 mL/min (>60); Est Glom Filt Rate - Afr Amer 151 mL/min (>60); Estimated Creatinine Clearance 147.11 ml/min; Globulin 3.6 g/dL (2.2-4.2); Glucose 87 mg/dL (74-106); Potassium 4.2 mmol/L (3.5-5.1); Protein, Total 7.6 g/dL (6.4-8.2); Sodium Level 140 mmol/L (136-145)
--- NOTE | 2017-07-26 14:00 | ED.DCSUM_ITS ---
- ER Visit Summary Date of Service: 07/26/17 Chief Complaint: Need detox History of Present Illness: The patient is a [address] Lyons and Dr. Monte. He reports that he drinks 4-8 beers per night and he does this 5 days a week. States is on this for approximately 30 years. [facility] he has never been through detox or rehab. He has been to a couple meetings in the past. Patient reports that this morning he has had 3 beers and 1 shot. He went to [facility] and was brought here for alcohol withdrawal and admission to [facility]. Physical Examination: Vitals: Stable. Afebrile. General: Well-nourished and well-developed. Head: Normocephalic atraumatic. Neck: Supple, no lymphadenopathy. No JVD. Nontender. Cardiovascular: Regular rate and rhythm. No murmurs. Respiratory: No respiratory distress. Clear to auscultation bilaterally. Abdominal: Soft, nontender, nondistended, normal bowel sounds. No guarding, rebound, or peritoneal signs. Back: Nontender. Extremities: Nontender, no edema. Skin: Normal color, no rash. Neurologic: Alert and oriented ?3. Cranial nerves II through XII are intact. Normal strength and sensation. Psych: Normal affect. Test Results: CBC is normal. Chem-7 is more for BUN of 5 and calcium of 8.2. LFTs are normal. Tox screen shows benzodiazepines alcohol level is 284. Emergency Department Course and Treatment: I had consulted [facility] and we were waiting for them to come up and see the patient when he became bored and asked to leave. Clinically he is not intoxicated. He is walking around without any difficulty. He has not been vomiting. Treatment Plan: At this point I do not think the patient is a good candidate for detox. He is not even waited the short period of time to be seen by [facility]. He will be discharged instructions to follow-up with 180 soon as possible. Return to the emergency department for any worsening symptoms. Disposition: To home in improved and stable condition. Impression: 1. Alcohol intoxication. This note was generated with [employer] dictation software. It may contain incorrect words, spelling, and punctuation that were not noted in review of the chart prior to signing ED Disposition - Plan for ED Patient: Disposition: Home or Assisted Living Chief Complaint: ETOH Intox Instructions: ED Alcohol Intoxication Referrals: EIGHTY,ONE [STAFF PHYSICIAN] - As soon as possible Kendell Lyons DO [Primary Care Provider] - Keep [facility] appointment
[2017-07-26 14:15] VITALS: PULSE 79; RESP 14; RESP 16; O2SAT 95
[2017-07-26 14:34] LABS: Amphetamine Urine VISTA NEGATIVE (<1000 ng/mL); Barbiturate Urine VISTA NEGATIVE (< 200 ng/mL); Benzodiazepine Urine VISTA POSITIVE (< 200 ng/mL); Cocaine Urine VISTA NEGATIVE (< 300 ng/mL); Ecstacy Urine VISTA NEGATIVE (< 500 ng/mL); Methadone Urine VISTA NEGATIVE (< 300 ng/mL); PCP Urine VISTA NEGATIVE (< 25 ng/mL); THC Urine VISTA NEGATIVE (< 50 ng/mL); Vista UDS pH Range 6
== END 2017-07-26 14:17 | disposition home or self-care (01) ==
PROVIDERS: Emergency Provider Emergency Medicine; Family Provider Family Medicine; PCP Family Medicine
DX: F10.129 Alcohol abuse with intoxication, unspecified (principal); Y90.9 Presence of alcohol in blood, level not specified; R05 Cough; I25.10 Atherosclerotic heart disease of native coronary artery without angina pectoris; I10 Essential (primary) hypertension; E78.00 Pure hypercholesterolemia, unspecified; F41.9 Anxiety disorder, unspecified; Z79.02 Long term (current) use of antithrombotics/antiplatelets; Z79.899 Other long term (current) drug therapy; F17.200 Nicotine dependence, unspecified, uncomplicated
CPT/HCPCS: 80053; 80076; 80307; 80320; 85027; 99283; A4216; G0480

== ENCOUNTER 2017-10-03 19:28 | Emergency (ER) | payer SELFPAY ==
[2017-01-12 13:36] VITALS: BMI 26.6
[2017-10-03 19:29] VITALS: BP 119/85; PULSE 82; RESP 16; TEMP 36.4; O2SAT 98; BMI 24.7
--- NOTE | 2017-10-03 20:56 | ED.VISSUMM ---
- ER Visit Summary Date of Service: 10/03/17 Chief Complaint: Laceration History of Present Illness: The patient is a [address] Lyons and Dr. Monte. He reports that he reached into his silverware door and cut his left thumb on a knife. He has a sharp pain that is mild. Is worsened by movement and relieved by rest. Immunizations are up-to-date. Physical Examination: Vitals: Stable. Afebrile. General: Well-nourished and well-developed. Head: Normocephalic atraumatic. Neck: Supple, no lymphadenopathy. No JVD. Nontender. Cardiovascular: Regular rate and rhythm. No murmurs. Respiratory: No respiratory distress. Clear to auscultation bilaterally. Abdominal: Soft, nontender, nondistended, normal bowel sounds. No guarding, rebound, or peritoneal signs. Back: Nontender. Extremities: 0.5 cm laceration on the radial side of the distal phalanx. He is neurovascular intact. No active bleeding. Skin: Normal color, no rash. Neurologic: Alert and oriented ?3. Cranial nerves II through XII are intact. Normal strength and sensation. Psych: Normal affect. Emergency Department Course and Treatment: Patient had his wound cleansed and a dressing was placed. Treatment Plan: Patient be discharged instructions with Dr. Lyons in 10-14 days if not improving. Disposition: To home in improved and stable condition. Impression: 1. Right thumb laceration, 0.5 cm, not repaired. This note was generated with [employer] dictation software. It may contain incorrect words, spelling, and punctuation that were not noted in review of the chart prior to signing ED Disposition - Plan for ED Patient: Disposition: Home or Assisted Living Chief Complaint: Laceration Instructions: ED Laceration Small Superf No Sutr Referrals: Kendell Lyons DO [Primary Care Provider] - 10-14 Days if not better
[2017-10-03 21:03] VITALS: RESP 16
--- NOTE | 2017-10-03 21:03 | ED.RN ---
REVIEWED D/C INSTRUCTIONS, FOLLOW UP CARE, AND S/S THAT WOULD WARRANT A RETURN TO THE ED WITH PT. PT VERBALIZED AN UNDERSTANDING AND DENIES FURTHER QUESTIONS FOR THIS RN. PT SKIN P/W/D, RESP EVEN AND UNLABORED, PT A&O X 3, NO DISTRESS NOTED. PT AMBULATED OUT OF ED, GAIT STEADY.
== END 2017-10-03 21:12 | disposition home or self-care (01) ==
LOC: ED 21:12
PROVIDERS: Emergency Provider Emergency Medicine; Family Provider Family Medicine; PCP Family Medicine
DX: S61.011A Laceration without foreign body of right thumb without damage to nail, initial encounter (principal); W26.0XXA Contact with knife, initial encounter; Y93.9 Activity, unspecified; Y92.9 Unspecified place or not applicable; I25.10 Atherosclerotic heart disease of native coronary artery without angina pectoris; Z95.5 Presence of coronary angioplasty implant and graft; Z79.82 Long term (current) use of aspirin; Z79.899 Other long term (current) drug therapy; F17.200 Nicotine dependence, unspecified, uncomplicated
CPT/HCPCS: 99282

== ENCOUNTER 2017-10-11 00:11 | Emergency (ER) | payer SELFPAY ==
[2017-01-12 13:36] VITALS: BMI 26.6
[2017-10-11 00:11] VITALS: BP 124/69; PULSE 100; RESP 18; TEMP 36.8; O2SAT 98; BMI 25.7
--- NOTE | 2017-10-11 00:25 | ED.DCSUM_ITS ---
- ER Visit Summary Date of Service: 10/11/17 Chief Complaint: [] Right lower dental pain History of Present Illness: The patient is a 52 M [] complaining of right lower dental pain toothache for last 2 days gradual onset continuous. He has been using Aleve and Orajel. He is seeing [facility] tomorrow. Did drink 4 beers today but does have a history of alcohol usage. Physical Examination: [] Vital signs reviewed General: Well-nourished well-developed Head: Normocephalic atraumatic Eyes: Pupils equal round and reactive to light extraocular movements intact ENT: TMs clear no hemotympanum no trauma Dental: Right lower second premolar has a large cavity with a medial gumline periapical abscess. It measures 1/2 cm. It is soft. Neck: Nontender full range of motion Cardiovascular: Regular rate rhythm no murmurs normal S1-S2 Respiratory: No distress clear to auscultation bilaterally chest nontender Abdomen: Soft nontender nondistended normal bowel sounds no masses Back: Nontender no CVA tenderness Extremities: Nontender active range of motion ?4 extremities no trauma Skin: Normal color no trauma Neuro alert oriented cranial nerves II through XII intact normal strength sensation reflexes Test Results: [] Emergency Department Course and Treatment: [] Since started on amoxicillin. I will hold off on doing an incision and drainage of this abscess. He will wait till tomorrow morning to see his dentist for definitive management. Given an injection of morphine to help with this pain tonight. Will follow-up. Will be given a prescription for amoxicillin Treatment Plan: [] Disposition: [] Impression: [] Right premolar periapical abscess This note was generated with [employer] dictation software. It may contain incorrect words, spelling, and punctuation that were not noted in review of the chart prior to signing ED Disposition - Plan for ED Patient: Chief Complaint: Dental Referrals: Kendell Lyons DO [Primary Care Provider] -
--- NOTE | 2017-10-11 00:25 | ED.DEP ---
ED Disposition - Plan for ED Patient: Disposition: Home or Assisted Living Chief Complaint: Dental Instructions: Dental Abscess Prescriptions: Amoxicillin 500 mg PO TID #30 tab Referrals: Kendell Lyons DO [Primary Care Provider] - Additional Instructions: Please follow with your dentist as scheduled tomorrow
[2017-10-11] MEDS: morphine 8 MG/ML Syringe IM (00:54)
[2017-10-11] MEDS: AMOXICILLIN 500 MG CAPSULE PO (00:54)
[2017-10-11 01:01] VITALS: PULSE 88; RESP 18; O2SAT 97
== END 2017-10-11 01:18 | disposition home or self-care (01) ==
PROVIDERS: Emergency Provider Emergency Medicine; Family Provider Family Medicine; PCP Family Medicine
DX: K04.7 Periapical abscess without sinus (principal); K02.9 Dental caries, unspecified; I10 Essential (primary) hypertension; F41.9 Anxiety disorder, unspecified; Z86.39 Personal history of other endocrine, nutritional and metabolic disease; Z79.82 Long term (current) use of aspirin; Z79.899 Other long term (current) drug therapy; Z72.0 Tobacco use
CPT/HCPCS: 96372; 99283

== ENCOUNTER 2017-12-07 11:01 | Emergency (ER) | payer SELFPAY ==
[2017-01-12 13:36] VITALS: BMI 26.6
[2017-12-07 11:02] VITALS: BP 114/73; PULSE 80; RESP 18; TEMP 36.6; O2SAT 99; BMI 25.0
[2017-12-07 11:16] VITALS: BP 118/70; PULSE 75; RESP 14; O2SAT 98
--- NOTE | 2017-12-07 11:22 | MRI_ITS ---
STUDY: MRI LUMBAR SPINE WITHOUT CONTRAST REASON FOR EXAM: Male, 52 years old. INJURY X 10 YRS INTERMITTENT PAIN SINCE CONSTANT x3 DAYS L BACK PAIN INTO L POSTERIOR LEG. TECHNIQUE: Standardized fat and water weighted pulse sequences were obtained in the sagittal and axial planes. COMPARISON: None FINDINGS: T12-L1: There is mild disc space narrowing and endplate spondylosis. There is no significant disc herniation, central canal or foraminal stenosis. There is straightening of the normal lumbar lordosis. There is no substantial scoliosis. Normal conus medullaris that terminates at the L1 L1-2: There is moderate disc space narrowing and endplates spondylosis. There is mild disc bulge without significant central canal or foraminal stenosis. L2-3: There is moderate disc space narrowing and endplates spondylosis. There is mild disc bulge without significant central canal or foraminal stenosis. There is moderate bilateral facet arthropathy L3-4: There is mild disc space narrowing and endplate spondylosis. There is no significant disc herniation, central canal or foraminal stenosis. Endplates there is a minimal disc bulge and moderate facet adenopathy without significant central canal or foraminal stenosis. L4-5: There is mild disc space narrowing and endplates spondylosis. There is mild disc bulge and facet arthropathy with mild central canal stenosis. There is severe right and moderate left foraminal stenosis. L5-S1: There is minimal disc space narrowing and endplate spondylosis. There is no significant disc herniation or central canal stenosis. There is severe facet arthropathy with moderate right foraminal stenosis. There is mild left foraminal stenosis. Normal visualized sacral ala. Normal visualized paraspinous soft tissue structures. MRI/Spine Lumbar (Routine) IMPRESSION: L4/L5: Severe right and moderate left foraminal stenosis. L5/S1: Moderate right foraminal stenosis. Multilevel facet arthropathy Electronically Signed: Rajiv Plasencia MD at 13:46 EDT Tel , Service support ,
[2017-12-07] MEDS: morphine 8 MG/ML Syringe IV (11:30)
[2017-12-07] MEDS: Ondansetron 4 MG/2 ML Vial IV (11:30)
[2017-12-07 11:38] LABS: Absolute Lymphocyte Count 1.35 X10^3/ul (0.83-4.51); Absolute Neutrophil Count 2.4 X10^3/uL (2.0-7.7); Basophil# 0.01 X10^3/uL; Basophil% 0.2 % (0-1); Eosinophil# 0.19 X10^3/uL; Eosinophils% 4.4 % (0-5); Hematocrit 47.2 % (40-54); Hemoglobin 15.8 g/dl (13.0-16.5); Lymphocyte # 1.35 X10^3/ul (4.0); Lymphocyte % 31.1 % (19-41); Mean Corp Hgb Conc 33.5 g/gl (32-36); Mean Corpuscular Hgb 33.1 pg (27.0-32.0); Mean Corpuscular Volume 98.7 fL (80-94); Mean Platelet Vol. 9.2 fl (6.2-12.0); Monocyte# 0.42 X10^3/uL; Monocyte% 9.7 % (0-10); Neutrophil # 2.36 X10^3/uL (2.7-7.7); Neutrophil % 54.4 % (47-70); Platelet Count 173 K/mm3 (150-450); RBC Distribution Width SD 50.2 fl (35.1-43.9); Red Blood Count 4.78 M/mm3 (4.6-6.2); White Blood Count 4.3 K/mm3 (4.4-11.0)
[2017-12-07 11:42] LABS: POSITIVE COUNT NO; POSITIVE DIFFERENTIAL NO; POSITIVE MORPHOLOGY NO
[2017-12-07 11:44] LABS: Prothrombin Time (Protime)PT. 13.1 SECONDS (11.7-14.9)
[2017-12-07 11:45] LABS: Partial Thromboplast Time 26.4 Seconds (24.1-36.2)
--- NOTE | 2017-12-07 13:51 | ED.VISSUMM ---
- ER Visit Summary Date of Service: 12/07/17 Chief Complaint: Severe back pain with radiation to left buttocks and posteriorly to plantar surface of left foot. History of Present Illness: The patient is a 52 M who has history of back problems. He presents because of bruising and severe back pain. He complains of weakness in his foot. He denies bowel or bladder dysfunction. He denies saddle paresthesia or anesthesia. He he denies weakness in his quadricep muscles going up or down steps. He states his left foot flops sometimes. He prefers to stand versus sitting. He denies fever, chills or night sweats. He denies weight gain or weight loss. He is on Plavix and reports bruising easily. He denies hemoptysis, hematuria, melena or hematochezia. He denies nausea or vomiting. Please read written note for complete detail Physical Examination: Vital signs noted and normal. Head is atraumatic normocephalic. Pupils are equal round reactive. Extraocular muscles are intact. TMs are pearly white with landmarks noted. Nares patent with no drainage. Posterior pharynx without erythema or exudate. Uvula is midline. There is no dysphonia or dysphasia. Trachea is midline. There is no stridor with auscultation of the neck. Heart is regular without murmur, gallop or rub. S1 and S2 are normal. Lungs are clear to auscultation with good movement of air bilaterally. Abdomen soft nontender normal bowel sounds. Patient has multiple back and abdominal bruises. There is no pain palpation of the pelvis. He has multiple hematoma/bruises of the right and left lower extremity. Normal perianal sensation. Straight leg test is equivocal on the right. He complains of pain at 30 degrees on the left. Negative crossover test. Patella and ankle reflex are 1+. DP and PT pulses are 2+ and symmetric. Negative clonus or Babinski sign. Gait was observed and no foot drop was noted. He seemed to have difficulty walking on his toes right side greater than left. He was able to walk on his heels. Test Results: MRI: L4/L5: Severe right and moderate left foraminal stenosis. L5/S1: Moderate right foraminal stenosis. Multilevel facet arthropathy Emergency Department Course and Treatment: With multiple bruises new neurologic symptoms and severe pain for the past 3 days will obtain MRI to evaluate for epidural/spinal hematoma herniated disc inflammatory process etc. CBC was obtained to evaluate H&H and platelet count. PT/INR PTT were obtained to assess clotting studies. Treatment Plan: IV was established. He was medicated with 8 mg of morphine and 4 mrem of Zofran. Patient was instructed to follow-up with his primary care physician Dr. Lyons. Patient's findings are on the right even though his symptoms are on the left. At this point no further treatment is warranted other than rest, ice and Tylenol. Disposition: Discharged home to follow-up with Dr. Kendell Lyons Impression: Acute low back pain with radiation to left lower extremity Bruising easily secondary to Plavix This note was generated with [employer] dictation software. It may contain incorrect words, spelling, and punctuation that were not noted in review of the chart prior to signing ED Disposition - Plan for ED Patient: Disposition: Home or Assisted Living Chief Complaint: Back Instructions: ED Neck Back Pain General, ED Contusion Soft Tissue Referrals: Kendell Lyons, DO [Primary Care Provider] - 3-5 Days if not improving Additional Instructions: Apply ice to back 20-30 minutes at a time 6-8 times a day, avoid activity that causes discomfort, and Tylenol for pain.
[2017-12-07 14:11] VITALS: PULSE 76; RESP 14; O2SAT 98
== END 2017-12-07 14:12 | disposition home or self-care (01) ==
PROVIDERS: Emergency Provider Emergency Medicine; Family Provider Family Medicine; PCP Family Medicine
DX: M54.5 Low back pain (principal); M79.605 Pain in left leg; R23.3 Spontaneous ecchymoses; Z79.02 Long term (current) use of antithrombotics/antiplatelets; M48.061 Spinal stenosis, lumbar region without neurogenic claudication; M48.07 Spinal stenosis, lumbosacral region; Z79.82 Long term (current) use of aspirin; Z79.899 Other long term (current) drug therapy; Z72.0 Tobacco use
CPT/HCPCS: 72148; 85025; 85610; 85730; 96374; 96375; 99283; A4216; J2405

== ENCOUNTER 2017-12-26 14:44 | Emergency (ER) | payer OTHER, SELFPAY ==
[2017-01-12 13:36] VITALS: BMI 26.6
[2017-12-26 14:45] VITALS: BP 145/85; PULSE 83; RESP 18; TEMP 36.3; O2SAT 94; BMI 25.0
[2017-12-26 14:53] VITALS: BP 122/95; PULSE 90; RESP 12; O2SAT 96
--- NOTE | 2017-12-26 15:02 | EKG12_ITS ---
Test Reason : DYSRHYTHMIA Blood Pressure : / mmHG Vent. Rate : 085 BPM Atrial Rate : 085 BPM P-R Int : 158 ms QRS Dur : 084 ms QT Int : 362 ms P-R-T Axes : 058 -05 060 degrees QTc Int : 430 ms Normal sinus rhythm Cannot rule out Inferior infarct , age undetermined Abnormal ECG Confirmed by ED VENTURA, GURPREET ([id number]), video tape editor ASHLEY SHIELDS ([id number]) on 12/28/2017 11:20:43 AM Referred By: AZAR Confirmed By:GURPREET WARD MD
--- NOTE | 2017-12-26 15:05 | RAD_ITS ---
STUDY: X-RAY CHEST REASON FOR EXAM: Male, 52 years old. Chest pain. TECHNIQUE: Single AP portable view of the chest. COMPARISON: Comparison is made with prior study dated March 30, 2017. FINDINGS: EKG electrodes are seen. Hyperinflation. The lungs are clear. There is no demonstrated pleural abnormality. Normal size heart. Normal mediastinum and stephen. Normal visualized pulmonary arteries. Normal visualized aortic arch and descending thoracic aorta. Normal visualized thoracic spine. Normal visualized ribs, clavicles, and shoulders. There is no demonstrated abnormality of the visualized soft tissue structures of the upper abdomen. RAD/Chest 1 View (Portable) IMPRESSION: Hyperinflation. Electronically Signed: Tanner Jiménez MD at 15:25 EST Tel [phone], Service support ,
--- NOTE | 2017-12-26 15:12 | ED.DCSUM_ITS ---
- ER Visit Summary Date of Service: 12/26/17 Chief Complaint: Palpitations History of Present Illness: The patient is a 52 M with episodes of palpitations of the past couple of days. Patient states he feels like his heart starts racing. Symptoms last for couple of minutes and then resolved. He does report some shortness of breath with this but denies near syncope. Patient does have history of cardiac disease with prior [place]. He has 2 cardiac stents. He denies significant chest pain during episodes. Patient does report drinking 5 beers today. He states he drinks 3 or 4 days a week. Physical Examination: Vital signs unremarkable. Heart rate is 90. Patient sitting upright in bed no acute distress. He is alert and talkative. Head neck examination is unremarkable. Heart is regular rate and rhythm. Lung sounds are clear. Abdomen is soft and nontender. Extremity examination reveals strong distal pulses. Test Results: EKG is sinus 85 with no sign of acute ischemia. Portable chest x- ray shows hyperinflation. CBC is significant only for hemoglobin concentrated at 17.8. Chemistry studies, LFTs, and troponin are normal. Magnesium is also normal. Emergency Department Course and Treatment: Patient was given IV fluids. He has had no arrhythmias noted on cardiac cath lab radiology technologist. 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 Treatment Plan: [] Disposition: Discharge Impression: Palpitations This note was generated with [employer] dictation software. It may contain incorrect words, spelling, and punctuation that were not noted in review of the chart prior to signing ED Disposition - Plan for ED Patient: Chief Complaint: Palpitations Referrals: Kendell Lyons DO [Primary Care Provider] -
[2017-12-26] MEDS: 0.9% Normal Saline 1,000 ML 150 ML IV (15:25)
[2017-12-26 15:28] LABS: Absolute Lymphocyte Count 1.99 X10^3/ul (0.83-4.51); Basophil# 0.02 X10^3/uL; Basophil% 0.3 % (0-1); Eosinophil# 0.11 X10^3/uL; Eosinophils% 1.4 % (0-5); Hematocrit 53.4 % (40-54); Hemoglobin 17.8 g/dl (13.0-16.5); Lymphocyte # 1.99 X10^3/ul (4.0); Lymphocyte % 25.9 % (19-41); Mean Corp Hgb Conc 33.3 g/gl (32-36); Mean Corpuscular Hgb 33.1 pg (27.0-32.0); Mean Corpuscular Volume 99.3 fL (80-94); Mean Platelet Vol. 9.9 fl (6.2-12.0); Monocyte# 0.57 X10^3/uL; Monocyte% 7.4 % (0-10); Neutrophil # 4.98 X10^3/uL (2.7-7.7); Neutrophil % 64.7 % (47-70); Platelet Count 189 K/mm3 (150-450); RBC Distribution Width CV 14.3 % (11.6-14.6); RBC Distribution Width SD 51.6 fl (35.1-43.9); Red Blood Count 5.38 M/mm3 (4.6-6.2); White Blood Count 7.7 K/mm3 (4.4-11.0)
[2017-12-26 15:31] LABS: POSITIVE COUNT NO; POSITIVE DIFFERENTIAL NO; POSITIVE MORPHOLOGY NO
[2017-12-26 15:55] LABS: AST(SGOT) 27 U/L (15-37); Alanine Aminotransfer ALT/SGPT 29 U/L (16-61); Albumin, Serum 3.4 g/dL (3.2-5.0); Alkaline Phosphatase 76 U/L (45-117); Anion Gap 6 (5-15); BUN 5 mg/dL (7-18); BUN/Creat Ratio 6.6 RATIO (10-20); Bilirubin, Direct 0.13 mg/dL (0.00-0.30); Calcium,Total 8.2 mg/dL (8.5-10.1); Chloride 104 mmol/L (98-107); Creatinine, Serum 0.75 mg/dL (0.70-1.30); EST Glomerular Filtration Rate 116 mL/min (>60); Est Glom Filt Rate - Afr Amer 140 mL/min (>60); Globulin 3.9 g/dL (2.2-4.2); Glucose 83 mg/dL (74-106); Magnesium 1.8 mg/dL (1.6-2.6); Potassium 4.2 mmol/L (3.5-5.1); Protein, Total 7.3 g/dL (6.4-8.2); Sodium Level 141 mmol/L (136-145)
--- NOTE | 2017-12-26 16:09 | ED.DEP ---
ED Disposition - Plan for ED Patient: Disposition: Home or Assisted Living Chief Complaint: Palpitations Instructions: ED Palpitations Referrals: Socrates Monte MD [STAFF PHYSICIAN] - As soon as possible
[2017-12-26 16:21] VITALS: BP 147/67; PULSE 71; RESP 16; O2SAT 98
== END 2017-12-26 16:22 | disposition home or self-care (01) ==
PROVIDERS: Emergency Provider Emergency Medicine; Family Provider Family Medicine; PCP Family Medicine
DX: R00.2 Palpitations (principal); R06.00 Dyspnea, unspecified; I25.10 Atherosclerotic heart disease of native coronary artery without angina pectoris; I25.2 Old myocardial infarction; I10 Essential (primary) hypertension; F41.9 Anxiety disorder, unspecified; Z95.5 Presence of coronary angioplasty implant and graft; Z79.82 Long term (current) use of aspirin; Z79.899 Other long term (current) drug therapy; Z72.0 Tobacco use
CPT/HCPCS: 71045; 80048; 80076; 83735; 84484; 85025; 93005; 96360; 99284; J7030; A4216

== ENCOUNTER 2017-12-31 13:03 | Emergency (ER) | payer OTHER, SELFPAY ==
[2017-01-12 13:36] VITALS: BMI 26.6
[2017-12-31 13:04] VITALS: PULSE 76; RESP 18; O2SAT 94; BMI 25.0
[2017-12-31 13:09] VITALS: BP 133/100; PULSE 83; RESP 15; O2SAT 95
[2017-12-31 14:14] VITALS: BP 171/137; PULSE 84; RESP 16; O2SAT 98
--- NOTE | 2017-12-31 14:42 | EKG12_ITS ---
Test Reason : CP Blood Pressure : / mmHG Vent. Rate : 080 BPM Atrial Rate : 080 BPM P-R Int : 164 ms QRS Dur : 088 ms QT Int : 360 ms P-R-T Axes : 011 -15 056 degrees QTc Int : 415 ms Poor data quality, interpretation may be adversely affected Sinus rhythm with Premature atrial complexes Otherwise normal ECG Confirmed by ED VENTURA, GURPREET ([id number]), visual effects editor MATHEUS CHAMORRO ([id number]) on 01/02/2018 9:30:36 AM Referred By: CHELY/CONNOR Confirmed By:GURPREET WARD MD
[2017-12-31] MEDS: Aspirin 81 MG TAB.CHEW 324 MG PO (14:47)
[2017-12-31 14:55] LABS: Absolute Lymphocyte Count 2.14 X10^3/ul (0.83-4.51); Absolute Neutrophil Count 4.8 X10^3/uL (2.0-7.7); Basophil# 0.02 X10^3/uL; Basophil% 0.3 % (0-1); Eosinophil# 0.11 X10^3/uL; Eosinophils% 1.4 % (0-5); Hematocrit 51.2 % (40-54); Hemoglobin 17.7 g/dl (13.0-16.5); Lymphocyte # 2.14 X10^3/ul (4.0); Lymphocyte % 27.9 % (19-41); Mean Corp Hgb Conc 34.6 g/gl (32-36); Mean Corpuscular Hgb 33.1 pg (27.0-32.0); Mean Corpuscular Volume 95.9 fL (80-94); Mean Platelet Vol. 9.8 fl (6.2-12.0); Monocyte# 0.63 X10^3/uL; Monocyte% 8.2 % (0-10); Neutrophil # 4.77 X10^3/uL (2.7-7.7); Neutrophil % 62.1 % (47-70); POSITIVE COUNT NO; POSITIVE DIFFERENTIAL NO; POSITIVE MORPHOLOGY NO; Platelet Count 191 K/mm3 (150-450); RBC Distribution Width CV 13.6 % (11.6-14.6); RBC Distribution Width SD 47.5 fl (35.1-43.9); Red Blood Count 5.34 M/mm3 (4.6-6.2); White Blood Count 7.7 K/mm3 (4.4-11.0)
--- NOTE | 2017-12-31 15:00 | RAD_ITS ---
STUDY: X-RAY CHEST REASON FOR EXAM: Male, 52 years old. Chest pain. TECHNIQUE: Single AP portable view of the chest. COMPARISON: None. FINDINGS: The lungs are clear and expanded. There is no demonstrated pleural abnormality. Normal size heart. Normal mediastinum and stephen. Normal visualized pulmonary arteries. Normal visualized aortic arch and descending thoracic aorta. Normal visualized thoracic spine. Normal visualized ribs, clavicles, and shoulders. There is no demonstrated abnormality of the visualized soft tissue structures of the upper abdomen. RAD/Chest 1 View (Portable) IMPRESSION: No evidence of acute cardiopulmonary process. Electronically Signed: Srikanth Santamaria DO at 15:54 EST , Service support ,
[2017-12-31 15:08] LABS: Anion Gap 9 (5-15); BUN 7 mg/dL (7-18); Chloride 97 mmol/L (98-107); EST Glomerular Filtration Rate 126 mL/min (>60); Est Glom Filt Rate - Afr Amer 152 mL/min (>60); Estimated Creatinine Clearance 147.54 ml/min; Glucose 73 mg/dL (74-106); Potassium 4.1 mmol/L (3.5-5.1); Sodium Level 134 mmol/L (136-145)
--- NOTE | 2017-12-31 15:27 | ED.VISSUMM ---
- ER Visit Summary Date of Service: 12/31/17 Chief Complaint: Chest pain History of Present Illness: The patient is a 52 M with chest pain for 1.5 hours prior to arrival. He describes this as his heart skipping beats and palpitations. He had similar symptoms in the past with an [place]. This was about a year ago. Several months ago, he had a normal stress test. About 9 months ago, he had a cardiac catheterization that showed patent vessels and stents. Patient has no other associated symptoms like shortness of breath, nausea, vomiting, lightheadedness, dizziness, or diaphoresis. He does drink daily and had 7 or 8 beers prior to arrival today. He said he is compliant with his aspirin and Plavix. No other new or associated symptoms. Physical Examination: Afebrile and vital signs unremarkable. Patient alert and oriented. No acute distress. Heart regular rate and rhythm. Lungs clear. Abdomen soft. Pulses normal. Calves soft and supple. Skin without diaphoresis or pallor. Test Results: EKG showed sinus rhythm at a rate of 80. No sign of acute ischemia or infarction pattern. He does have PACs. Hemoglobin 17.7, sodium 134, chloride 97, glucose 73, troponin normal. Alcohol level was 420. Drug screen was pending. Emergency Department Course and Treatment: Patient treated with aspirin and placed on a monitor while awaiting results. He had no further chest pain or new or worsening complaints. His workup was all fairly unremarkable. Chest x-ray official read is pending and drug screen is pending. I discussed treatment options with the patient. His symptoms are very atypical for ACS. His workup here is unremarkable, but I advised him that the only way to rule out ACS would require admission. He says he does not want to be admitted. Risks were discussed. The patient has been using alcohol, but he is alert and oriented. He is able to discuss his cardiac history in a very detailed manner. He feels well and does not want to stay for stress testing. He would like to follow-up as an outpatient. Patient tells me that if we do not discharge him, he is going to leave anyway. There is no indication to restrain him against his will, sedate him, or redirect him any further at this point. I advised him that he may return at any time if he has any new or worsening issues. Treatment Plan: As above Disposition: Discharge Impression: 1. Palpitations This note was generated with [employer] dictation software. It may contain incorrect words, spelling, and punctuation that were not noted in review of the chart prior to signing ED Disposition - Plan for ED Patient: Chief Complaint: Chest Pain Referrals: Kendell Lyosn DO [Primary Care Provider] -
--- NOTE | 2017-12-31 15:31 | ED.DCSUM_ITS ---
- ER Visit Summary Date of Service: 12/31/17 Chief Complaint: Chest pain History of Present Illness: The patient is a 52 M with chest pain for 1.5 hours prior to arrival. He describes this as his heart skipping beats and palpitations. He had similar symptoms in the past with an [place]. This was about a year ago. Several months ago, he had a normal stress test. About 9 months ago, he had a cardiac catheterization that showed patent vessels and stents. Patient has no other associated symptoms like shortness of breath, nausea, vomiting, lightheadedness, dizziness, or diaphoresis. He does drink daily and had 7 or 8 beers prior to arrival today. He said he is compliant with his aspirin and Plavix. No other new or associated symptoms. Physical Examination: Afebrile and vital signs unremarkable. Patient alert and oriented. No acute distress. Heart regular rate and rhythm. Lungs clear. Abdomen soft. Pulses normal. Calves soft and supple. Skin without diaphoresis or pallor. Test Results: EKG showed sinus rhythm at a rate of 80. No sign of acute ischemia or infarction pattern. He does have PACs. Hemoglobin 17.7, sodium 134, chloride 97, glucose 73, troponin normal. Alcohol level was 420. Drug screen was pending. Emergency Department Course and Treatment: Patient treated with aspirin and placed on a monitor while awaiting results. He had no further chest pain or new or worsening complaints. His workup was all fairly unremarkable. Chest x-ray official read is pending and drug screen is pending. I discussed treatment options with the patient. His symptoms are very atypical for ACS. His workup here is unremarkable, but I advised him that the only way to rule out ACS would require admission. He says he does not want to be admitted. Risks were discussed. The patient has been using alcohol, but he is alert and oriented. He is able to discuss his cardiac history in a very detailed manner. He feels well and does not want to stay for stress testing. He would like to follow-up as an outpatient. Patient tells me that if we do not discharge him, he is going to leave anyway. There is no indication to restrain him against his will, sedate him, or redirect him any further at this point. I advised him that he may return at any time if he has any new or worsening issues. Treatment Plan: As above Disposition: Discharge Impression: 1. Palpitations This note was generated with [employer] dictation software. It may contain incorrect words, spelling, and punctuation that were not noted in review of the chart p rior to signing ED Disposition - Plan for ED Patient: Chief Complaint: Chest Pain Referrals: Kendell Lyons DO [Primary Care Provider] -
--- NOTE | 2017-12-31 15:31 | ED.DEP ---
ED Disposition - Plan for ED Patient: Chief Complaint: Chest Pain Instructions: ED Chest Pain Atypical Unkn Cause Referrals: Kendell Lyons DO [Primary Care Provider] -
[2017-12-31 15:32] VITALS: BP 131/85; PULSE 82; RESP 16; O2SAT 98
--- NOTE | 2017-12-31 15:47 | ED.RN ---
Questioned d/c of patient with physicians. Explained that pt is ambulatory and appropriate he is clinically sober and may be d/c.
[2017-12-31 15:49] VITALS: BP 138/99; PULSE 90; RESP 20; O2SAT 94
== END 2017-12-31 15:50 | disposition home or self-care (01) ==
LOC: ED 14:54
PROVIDERS: Emergency Provider Emergency Medicine; Family Provider Family Medicine; PCP Family Medicine
DX: R00.2 Palpitations (principal); R07.9 Chest pain, unspecified; I49.1 Atrial premature depolarization; I25.10 Atherosclerotic heart disease of native coronary artery without angina pectoris; I25.2 Old myocardial infarction; F41.9 Anxiety disorder, unspecified; Z95.5 Presence of coronary angioplasty implant and graft; F10.99 Alcohol use, unspecified with unspecified alcohol-induced disorder; Z79.82 Long term (current) use of aspirin; Z79.899 Other long term (current) drug therapy; Z72.0 Tobacco use
CPT/HCPCS: 71045; 80048; 80307; 80320; 84484; 85025; 93005; 99285; A4216; G0480

== ENCOUNTER 2018-02-06 13:54 | Emergency (ER) | payer OTHER, SELFPAY ==
[2017-01-12 13:36] VITALS: BMI 26.6
[2018-01-04 15:55] VITALS: BMI 22.6
[2018-02-06 13:55] VITALS: BP 106/68; PULSE 104; RESP 20; TEMP 36.7; O2SAT 96; BMI 24.0
--- NOTE | 2018-02-06 14:51 | ED.RN ---
PT STATES HE DOES NOT WANT TO BE SEEN SINCE HE ISN'T IN WITHDRAW OR GOING INTO DETOX. STATES HE NEEDS A CIGARETTE AND JUST WANTS TO GO HOME. ENCOURAGED PT TO BE SEEN BY PHYSICIAN BUT PT STATES HE IS FINE. DO TO THE STRONG ODOR OF ALCOHOL AND PT ADMITTING TO DRINKING ALOT OF BEER HE WAS ENCOURAGED TO GET A RIDE HOME. PT WAS LATER CISUALIZED DRIVING AWAY FROM ER BY SECURITY. [facility] MADE AWARE.
== END 2018-02-06 15:20 | disposition left against medical advice (07) ==
LOC: ED 15:07
PROVIDERS: Emergency Provider Emergency Medicine; Family Provider Family Medicine; PCP Family Medicine
DX: R69 Illness, unspecified (principal)

== ENCOUNTER 2018-02-08 14:24 | Emergency (ER) | payer OTHER, SELFPAY ==
[2017-01-12 13:36] VITALS: BMI 26.6
[2018-02-08 14:25] VITALS: BP 138/86; PULSE 113; RESP 16; TEMP 36.6; O2SAT 98; BMI 23.2
--- NOTE | 2018-02-08 14:32 | EKG12_ITS ---
Test Reason : CP Blood Pressure : / mmHG Vent. Rate : 114 BPM Atrial Rate : 114 BPM P-R Int : 162 ms QRS Dur : 076 ms QT Int : 332 ms P-R-T Axes : -02 -21 065 degrees QTc Int : 457 ms Sinus tachycardia Possible Inferior infarct , age undetermined Abnormal ECG Confirmed by ANTONIO VENTURA, ONEIDA ([id number]), clinical editor ASHLEY SHILEDS ([id number]) on 02/10/2018 2:40:52 PM Referred By: CONNOR Confirmed By:ONEIDA ALVAREZ MD
--- NOTE | 2018-02-08 15:47 | ED.RN ---
PT LEFT WITHOUT BEING SEEN AT 1445. P HAD REQUESTED EVALUATION TO [facility]. WHILE HERE COMPLAINED OF CHEST PAIN. EKG PERFORMED IN TRIAGE. PT REQUESTED RESULTS OF EKG, THIS RN EXPLAINED MD NEEDED TO GIVE HIM RESULTS. PT STATES HE DID NOT WANT TO WAIT ANY LONGER, DECIDED AGAINST [facility] PRO[facility]. THIS RN ADVISED P TO RETURN WITH ANY CONCERNS, URGED HIM TO STAY FOR CARDIAC WORK UP, EXPLAINED POSSIBLE RISKS OF LEAVING WITHOUT MD EVALUATION. PT VOICED UNDERSTANDING.
== END 2018-02-08 14:45 | disposition left against medical advice (07) ==
PROVIDERS: Emergency Provider Emergency Medicine; Family Provider Family Medicine; PCP Family Medicine
DX: R07.9 Chest pain, unspecified (principal); Z53.21 Procedure and treatment not carried out due to patient leaving prior to being seen by health care provider
CPT/HCPCS: 93005

== ENCOUNTER 2018-02-11 10:37 | Inpatient (IN) | payer SELFPAY ==
[2017-01-12 13:36] VITALS: BMI 26.6
[2018-02-11] VITALS (7 sets, daily range): BP systolic 122–128; BP diastolic 73–86; PULSE 68–145; RESP 18–26; TEMP 36.6–36.9; O2SAT 95–99; BMI 23.5; BMI 23.1
--- NOTE | 2018-02-11 10:43 | ED.RN ---
PT SEEN RECENTLY MULTIPLE TIMES FOR SAME AND HAS LEFT
--- NOTE | 2018-02-11 10:55 | EKG12_ITS ---
Test Reason : ALCOHOL WITHDRAWAL Blood Pressure : / mmHG Vent. Rate : 086 BPM Atrial Rate : 086 BPM P-R Int : 136 ms QRS Dur : 084 ms QT Int : 400 ms P-R-T Axes : 008 086 -09 degrees QTc Int : 478 ms Sinus rhythm with sinus arrhythmia with occasional Premature ventricular complexes Abnormal QRS-T angle, consider primary T wave abnormality Abnormal ECG Confirmed by ED VENTURA, GURPREET ([id number]), editor managing director ASHLEY SHIELDS ([id number]) on 02/14/2018 9:03:08 AM Referred By: Lisa Palacios Confirmed By:GURPREET WARD MD
--- NOTE | 2018-02-11 11:00 | RAD_ITS ---
STUDY: X-RAY CHEST REASON FOR EXAM: Male, 52 years old. Chest pain. TECHNIQUE: Single PA view of the chest. COMPARISON: 31 December 2017 FINDINGS: The lungs are clear and expanded. There is no demonstrated pleural abnormality. Normal size heart. Normal mediastinum and stephen. Normal visualized pulmonary arteries. Normal visualized aortic arch and descending thoracic aorta. Normal visualized thoracic spine. Normal visualized ribs, clavicles, and shoulders. There is no demonstrated abnormality of the visualized soft tissue structures of the upper abdomen. RAD/Chest 1 View (Portable) IMPRESSION: No evidence of acute cardiopulmonary process. Electronically Signed: Srikanth Santamaria DO at 11:19 EST , Service support ,
--- NOTE | 2018-02-11 11:01 | ED.VISSUMM ---
- ER Visit Summary Date of Service: 02/11/18 Chief Complaint: Alcohol withdrawal History of Present Illness: The patient is a 52 M with alcohol withdrawal. His last drink was yesterday evening between 8 PM and 10 PM. He has been drinking for 30 or more years. His last sober period was about 5 or 6 months ago. He was clean for about a week. 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 He reports nausea, vomiting, shakes, mind racing, insomnia. Denies any suicidal or homicidal ideation. He does have a history of coronary disease. Denies any chest pain or shortness of breath. Physical Examination: Afebrile. Heart rate 136 and respiratory rate 26. Otherwise vitals normal. Patient is depressed and anxious in appearance. Skin is very mildly diaphoretic. Normal color. No rash. Heart tachycardic but regular. Lungs clear. Abdomen soft. Test Results: EKG, labs, chest x-ray pending. EKG showed sinus rhythm at a rate of 86 with PVCs. Chest x-ray showed no acute findings. Troponin normal. Hemoglobin stable at 17.3. Platelets low at 114. CMP unremarkable except for slightly elevated liver enzymes. Drug screen and alcohol level still pending. Emergency Department Course and Treatment: Patient has a CIWA score of 27. He was treated with fluids and placed on the monitor. He also received Zofran and Ativan. We will perform medical clearance and discuss with the hospitalist about detox. We do have detox beds available, but the patient will have to be admitted through the weekend to be seen on Tuesday. Patient is improved on reevaluation. He did receive an additional dose of Ativan. Patient was discussed with the hospitalist and will be admitted for further care. Treatment Plan: As above Disposition: Admission Impression: 1. Alcohol withdrawal This note was generated with [employer] dictation software. It may contain incorrect words, spelling, and punctuation that were not noted in review of the chart prior to signing ED Disposition - Plan for ED Patient: Chief Complaint: ETOH Intox Referrals: Kendell Lyons DO [Primary Care Provider] -
[2018-02-11] MEDS: LORazepam 2 MG/ML Syringe 1 MG IV ×2 (11:18→13:31)
[2018-02-11] MEDS: 0.9% Normal Saline 1,000 ML 1000 ML IV (11:18)
[2018-02-11] MEDS: Ondansetron 4 MG/2 ML Vial IV (11:19)
[2018-02-11 12:37] LABS: Absolute Lymphocyte Count 0.77 X10^3/ul (0.83-4.51); Eosinophil# 0.01 X10^3/uL; Eosinophils% 0.1 % (0-5); Hematocrit 49.3 % (40-54); Hemoglobin 17.3 g/dl (13.0-16.5); Lymphocyte # 0.77 X10^3/ul (4.0); Lymphocyte % 8.2 % (19-41); Mean Corp Hgb Conc 35.1 g/gl (32-36); Mean Corpuscular Hgb 31.3 pg (27.0-32.0); Mean Corpuscular Volume 89.2 fL (80-94); Mean Platelet Vol. 11.4 fl (6.2-12.0); Monocyte# 0.65 X10^3/uL; Monocyte% 6.9 % (0-10); Neutrophil # 7.98 X10^3/uL (2.7-7.7); Neutrophil % 84.6 % (47-70); POSITIVE COUNT NO; POSITIVE DIFFERENTIAL NO; POSITIVE MORPHOLOGY NO; Platelet Count 114 K/mm3 (150-450); RBC Distribution Width SD 45.8 fl (35.1-43.9); Red Blood Count 5.53 M/mm3 (4.6-6.2); White Blood Count 9.4 K/mm3 (4.4-11.0)
[2018-02-11 12:53] LABS: AST(SGOT) 128 U/L (15-37); Alanine Aminotransfer ALT/SGPT 131 U/L (16-61); Albumin, Serum 3.6 g/dL (3.2-5.0); Alkaline Phosphatase 70 U/L (45-117); Anion Gap 12 (5-15); BUN 9 mg/dL (7-18); BUN/Creat Ratio 10.3 RATIO (10-20); Calcium,Total 8.4 mg/dL (8.5-10.1); Chloride 96 mmol/L (98-107); Creatinine, Serum 0.87 mg/dL (0.70-1.30); EST Glomerular Filtration Rate 97 mL/min (>60); Est Glom Filt Rate - Afr Amer 118 mL/min (>60); Estimated Creatinine Clearance 118.71 ml/min; Globulin 3.5 g/dL (2.2-4.2); Glucose 94 mg/dL (74-106); Potassium 3.8 mmol/L (3.5-5.1); Protein, Total 7.1 g/dL (6.4-8.2); Sodium Level 135 mmol/L (136-145)
--- NOTE | 2018-02-11 13:22 | HP.PCM_ITS ---
History of Present Illness Date of Admission: 02/11/18 Chief Complaint: alcohol withdrawal, vomiting The patient is a 52 year old M with a history of alcohol abuse, chronic anxiety and CAD s/p CT and stent placement. He was admitted through the ED with a complaint of vomiting and excessive alcohol intake. Patient he states he usually drinks about 12 drinks every night and last night he drank about 7 drinks. He subsequently started having severe nausea and vomited profusely. Emesis was mainly bilious. He also started having tremors and so decided coming to the hospital to seek help for alcohol withdrawal. In the ED, vitals were significant for tachycardia with heart rate of 136 and tachypnea with r espiratory rate of 26. EKG showed sinus tachycardia. Labs showed hb of 17.3 and bilirubin of 1.5, and mildly elevated AST and ALT. He is being admitted to be managed for alcohol withdrawal. [] Past Medical History Past Medical History (Chronic Problems): Chronic Problems (Last Reviewed 01/04/18 @ 16:19 by Socrates Monte MD) Atherosclerosis of coronary artery of [place] heart with angina pectoris (Chronic) BMS-Prox and Distal RCA 12/23/16 Smoking addiction (Chronic) Anxiety (Chronic) Noncompliance (Chronic) Medical History: Medical History (Last Reviewed 01/04/18 @ 16:19 by Socrates Monte MD) Atherosclerosis of coronary artery of [place] heart with angina pectoris (Chronic) I25.119 BMS-Prox and Distal RCA 12/23/16 Smoking addiction (Chronic) F17.200 Anxiety (Chronic) F41.9 Noncompliance (Chronic) Z91.19 STEMI (ST elevation myocardial infarction) (Resolved) 12/23/16 STEMI (ST elevation myocardial infarction) I21.3 12/23/16 Allergies No Known Allergies Allergy (Verified 02/11/18 10:40) Home Medications: Ambulatory Orders Medication Instructions Recorded ALPRAZolam [Xanax] 1 - 2 mg PO QHS PRN 05/27/17 Fluoxetine [Prozac] 20 mg PO DAILY 05/27/17 Aspirin [Aspirin, Baby] 81 mg PO DAILY@0800 10/03/17 atorvastatin 20 mg tablet 20 mg PO DAILY #90 tab 01/04/18 clopidogrel 75 mg tablet 75 mg PO DAILY #90 tab 01/04/18 metoprolol succinate ER 25 mg 25 mg PO DAILY #90 tab 01/04/18 tablet,extended release 24 hr Surgical History: Surgical History (Last Reviewed 01/04/18 @ 16:19 by Socrates Monte MD) History of coronary artery stent placement (Resolved) Onset Date: 12/23/16 Z95.5 BMS-Prox and Distal RCA 12/23/16 History of left heart catheterization Z98.890 12/23/16- PCI with BM stent to prox RCA & distal RCA; 01/12/17- patent BM stents; Surgical History: herniorrhaphy Psychiatric History: Anxiety Lives: Alone Smoking Status: Current every day smoker Tobacco Use: Cigarettes Alcohol: Heavy Drugs: None - *Family History Sibling Family History: Family History (Last Reviewed 01/04/18 @ 16:19 by Socrates Monte MD) Father Myocardial infarction, Onset Age: 36 Mother Myocardial infarction Cancer History Items: Heart Disease Maternal Family History: Family History (Last Reviewed 01/04/18 @ 16:19 by Socrates Monte MD) Father Myocardial infarction, Onset Age: 36 Mother Myocardial infarction Cancer History Items: No pertinent history Paternal Family History: Family History (Last Reviewed 01/04/18 @ 16:19 by Socrates Monte MD) Father Myocardial infarction, Onset Age: 36 Mother Myocardial infarction Cancer History Items: No pertinent history Review of Systems Constitutional: Reports: Malaise, Weakness. Denies: Chills, Fever, Weight Change Eyes: Denies: Blurred vision HEENT: Denies: Head Aches, Sinus Congestion, Sinus Drainage Cardiovascular: Denies: Chest Pain, Edema, Light Headedness, Palpitations Respiratory: Denies: Cough, Shortness of breath at rest, Sputum production Gastrointestinal: Reports: Abdominal Pain, Nausea, Vomiting. Denies: Constipation, Diarrhea Genitourinary: Denies: Dysuria Musculoskeletal: Denies: Joint Pain, Joint Tenderness Skin: Denies: Rash, Wounds Neurological: Denies: Numbness, Tingling, Focal weakness Psychiatric: Denies: Anxiety, Depression, Homicidal Ideations, Suicidal Ideations Hematologic/ Lymphatic: Denies: Easy Bruising, Easy Bleeding VTE Information - Inpt Only VTE Present on Admission: No VTE Pharm Prophylaxis ordered?: Yes - Physical Exam General: Alert, Oriented x3, Cooperative, - - looks anxious HEENT: Atraumatic, PERRLA, EOMI, Normocephalic Oral: Dry Mucosa Neck: Supple, No JVD, Negative Carotid Bruits Lungs: Clear to auscultation, Normal air movement, No rhonchi, No wheeze, No rales Cardiovascular: Regular rate, Regular Rhythm, Normal S1, Normal S2, No murmurs Abdomen: Bowel Sounds Present, Soft, No Hepato-splenomegaly, - - RUQ moderate tenderness, with no guarding or rebound tenderness. Horton's sign negative. Extremities: No clubbing, No cyanosis, No edema, Capillary Refill Less than 3 Seconds Skin: No rashes, No breakdown, - - skin appears diffusely erythematous Musculoskeletal: No Tenderness to Palpation of Joints or Extremities Lymphatic: No Cervical, Supraclavicular, or Inguinal Adenopathy Neurological: Cranial nerves II-XII grossly intact, Neuro grossly intact, Motor Exam 5/5 strength throughout Psych/Mental Status: Anxious, Alert and oriented to time, place, person, mood and affect Vital Signs Temp Pulse Resp BP Pulse Ox 98 F 136 H 26 H 122/73 H 99 02/11/18 10:38 02/11/18 10:38 02/11/18 10:38 02/11/18 10:38 02/11/18 10:38 Oxygen Delivery Method Room Air Weight: 188 lb Body Mass Index (BMI) 23.5 Laboratory Tests Past 24 Hrs 02/11/18 02/11/18 02/11/18 11:10 11:10 11:10 WBC Cancelled Corrected WBC Cancelled RBC Cancelled Hgb Cancelled Hct Cancelled MCV Cancelled MCH Cancelled MCHC Cancelled RDW Cancelled RDW Differential Cancelled Plt Count Cancelled MPV Cancelled Immature Gran % (Auto) Cancelled Neut % (Auto) Cancelled Lymph % (Auto) Cancelled [place] % (Auto) Cancelled Eos % (Auto) Cancelled Baso % (Auto) Cancelled Immature Gran # (Auto) Cancelled Absolute Neuts (auto) Cancelled Absolute Lymphs (auto) Cancelled Absolute Monos (auto) Cancelled Total Counted Cancelled Neutrophils % (Manual) Cancelled Band Neutrophils % Cancelled Lymphocytes % (Manual) Cancelled Monocytes % (Manual) Cancelled Eosinophils % (Manual) Cancelled Basophils % (Manual) Cancelled Metamyelocytes % Cancelled Myelocytes % Cancelled Promyelocytes % Cancelled Blast Cells % Cancelled Plasma Cell % (Manual) Cancelled Other Cells % Cancelled Lymphocytes # Cancelled Nucleated RBCs/100 WBC Cancelled Differential Comment Cancelled Diff Path Review Cancelled Hypersegmented Neuts Cancelled Atypical Lymphocytes Cancelled Reactive Lymphocytes Cancelled Smudge Cells Cancelled Eosinophilia # Cancelled Basophilia # Cancelled Toxic Granulation Cancelled Dohle Bodies Cancelled Daniel Rods Cancelled Platelet Estimate Cancelled Plt Morphology Comment Cancelled RBC Morphology Cancelled Polychromasia Cancelled Hypochromasia Cancelled Poikilocytosis Cancelled Basophilic Stippling Cancelled Anisocytosis Cancelled Microcytosis Cancelled Macrocytosis Cancelled Spherocytes Cancelled Sickle Cells Cancelled Target Cells Cancelled Tear Drop Cells Cancelled Ovalocytes Cancelled Stomatocytes Cancelled Rdz-Rankin Bodies Cancelled Roger Cells Cancelled Bite Cells Cancelled Acanthocytes (Spur) Cancelled Rouleaux Cancelled Schistocytes Cancelled Sodium Cancelled Potassium Cancelled Chloride Cancelled Carbon Dioxide Cancelled Anion Gap Cancelled BUN Cancelled Creatinine Cancelled Estim Creat Clear Calc Cancelled Est GFR (MDRD) Af Amer Cancelled Est GFR (MDRD) Non-Af Cancelled BUN/Creatinine Ratio Cancelled Glucose Cancelled Calcium Cancelled Total Bilirubin Cancelled AST Cancelled ALT Cancelled Alkaline Phosphatase Cancelled Troponin I Cancelled Total Protein Cancelled Albumin Cancelled Globulin Cancelled Albumin/Globulin Ratio Cancelled Ethyl Alcohol Cancelled 02/11/18 02/11/18 02/11/18 12:25 12:25 12:25 WBC 9.4 Corrected WBC RBC 5.53 Hgb 17.3 H Hct 49.3 MCV 89.2 MCH 31.3 MCHC 35.1 RDW 14.0 RDW Differential 45.8 H Plt Count 114 L MPV 11.4 Immature Gran % (Auto) 0.200 Neut % (Auto) 84.6 H Lymph % (Auto) 8.2 L [place] % (Auto) 6.9 Eos % (Auto) 0.1 Baso % (Auto) 0.0 Immature Gran # (Auto) Absolute Neuts (auto) 8.0 H Absolute Lymphs (auto) 0.77 L Absolute Monos (auto) Total Counted Not Reportable Neutrophils % (Manual) Band Neutrophils % Lymphocytes % (Manual) Monocytes % (Manual) Eosinophils % (Manual) Basophils % (Manual) Metamyelocytes % Myelocytes % Promyelocytes % Blast Cells % Plasma Cell % (Manual) Other Cells % Lymphocytes # Nucleated RBCs/100 WBC Differential Comment Diff Path Review Hypersegmented Neuts Atypical Lymphocytes Reactive Lymphocytes Smudge Cells Eosinophilia # Basophilia # Toxic Granulation Dohle Bodies Daniel Rods Platelet Estimate Plt Morphology Comment RBC Morphology Polychromasia Hypochromasia Poikilocytosis Basophilic Stippling Anisocytosis Microcytosis Macrocytosis Spherocytes Sickle Cells Target Cells Tear Drop Cells Ovalocytes Stomatocytes Rdz-Rankin Bodies Roger Cells Bite Cells Acanthocytes (Spur) Rouleaux Schistocytes Sodium 135 L Potassium 3.8 Chloride 96 L Carbon Dioxide 27.0 Anion Gap 12 BUN 9 Creatinine 0.87 Estim Creat Clear Calc 118.71 Est GFR (MDRD) Af Amer 118 Est GFR (MDRD) Non-Af 97 BUN/Creatinine Ratio 10.3 Glucose 94 Calcium 8.4 L Total Bilirubin 1.50 H AST 128 H ALT 131 H Alkaline Phosphatase 70 Troponin I < 0.015 Total Protein 7.1 Albumin 3.6 Globulin 3.5 Albumin/Globulin Ratio 1.0 Ethyl Alcohol Pending Assessment/Plan All Active Problems (Last Reviewed 01/04/18 @ 16:19 by Socrates Monte MD) Intermittent palpitations (Acute) Chest pain (Acute) History of coronary artery stent placement (Resolved 12/23/16) STEMI (ST elevation myocardial infarction) (Resolved) 52 y/o male admitted with for alcohol withdrawal 1. Acute alcohol withdrawal * had about 7 drinks yesternight, and only stopped because he started vomiting * has had previous admissions for alcohol withdrawal * alcohol level pending * urine tox pending * admit to Med Surg with telemetry * monitor CIWA score * alcohol withdrawal protocol with librium * 2. ? Alcoholic hepatitis vs pancreatitis * has mild right upper quadrant tenderness; liver enzymes mildly elevated with Total aline of 1.5 (baseline is WNL), and AST/ALT of 128/131/ * AST/ALT ratio doesnt fit the picture of alcoholic hepatitis * will check lipase level- lipase level was only ~ 162, making acute pancreatitis less likely * keep NPO for now until nausea improves and vomiting resolves * hydrate with IVF NS * 3. CAD s/p stents: continue aspirin, plavix and statin 4. Generalised anxiety disorder * on xanax prn. also on Prozac * 5. Hypertension: on metoprolol 25mg daily 6. Thrombocytopenia * platelets are 114. was 191 in December * Likely due to alcohol abuse * will monitor * DVT prophylaxis; heparin Code Visit Inpatient E&M: 58598 Init Hosp L3
--- NOTE | 2018-02-11 13:26 | NURSING ---
MED SURG ALCOHOL WITHDRAWAL KORAM
[2018-02-11 13:31] LABS: Alcohol, Blood (Medical)-Serum < 3.0 mg/dL
[2018-02-11 13:54] LABS: Lipase 162 U/L (73-393)
--- NOTE | 2018-02-11 14:45 | NURSING ---
verified home meds with [facility] pharmacy on [address] [facility].
[2018-02-11] MEDS: 0.9% Normal Saline 1,000 ML 150 ML IV ×2 (14:50→21:07)
[2018-02-11] MEDS: chlordiazePOXIDE 25 MG Capsule 50 MG PO ×2 (14:54→21:06)
[2018-02-11] MEDS: Heparin Injection (Vial) 5,000 UNIT/ML VIAL 5000 UNIT SC ×2 (14:55→21:07)
[2018-02-11] MEDS: LORazepam 2 MG/ML Syringe IV ×2 (14:57→21:14)
[2018-02-11 17:52] LABS: Amphetamine Urine VISTA NEGATIVE (<1000 ng/mL); Barbiturate Urine VISTA NEGATIVE (< 200 ng/mL); Benzodiazepine Urine VISTA POSITIVE (< 200 ng/mL); Cocaine Urine VISTA NEGATIVE (< 300 ng/mL); Ecstacy Urine VISTA NEGATIVE (< 500 ng/mL); Methadone Urine VISTA NEGATIVE (< 300 ng/mL); PCP Urine VISTA NEGATIVE (< 25 ng/mL); THC Urine VISTA NEGATIVE (< 50 ng/mL); Vista UDS pH Range 6
[2018-02-11] MEDS: Metoprolol(XL)Succ 25 MG Tablet PO (18:09)
[2018-02-11] MEDS: Atorvastatin Calcium 20 MG Tablet PO (21:07)
[2018-02-11] MEDS: 0.9% NaCl Peripheral Flush Adult/Peds IV (21:14)
[2018-02-12] VITALS: PULSE 72
[2018-02-12 03:00] VITALS: BP 131/81; PULSE 70; RESP 18; TEMP 36.9
[2018-02-12] MEDS: chlordiazePOXIDE 25 MG Capsule 50 MG PO ×2 (03:06→09:04)
[2018-02-12 03:59] VITALS: PULSE 66
[2018-02-12 05:32] VITALS: BP 130/73; PULSE 66; RESP 18; TEMP 36.8
[2018-02-12] MEDS: Heparin Injection (Vial) 5,000 UNIT/ML VIAL 5000 UNIT SC (05:37)
[2018-02-12] MEDS: LORazepam 2 MG/ML Syringe IV (05:38)
[2018-02-12] MEDS: 0.9% NaCl Peripheral Flush Adult/Peds IV (05:38)
[2018-02-12 06:09] LABS: Absolute Lymphocyte Count 1.41 X10^3/ul (0.83-4.51); Absolute Neutrophil Count 3.2 X10^3/uL (2.0-7.7); Basophil# 0.01 X10^3/uL; Basophil% 0.2 % (0-1); Eosinophil# 0.05 X10^3/uL; Hematocrit 43.2 % (40-54); Hemoglobin 14.9 g/dl (13.0-16.5); Lymphocyte # 1.41 X10^3/ul (4.0); Lymphocyte % 27.1 % (19-41); Mean Corp Hgb Conc 34.5 g/gl (32-36); Mean Corpuscular Hgb 31.9 pg (27.0-32.0); Mean Corpuscular Volume 92.5 fL (80-94); Monocyte# 0.52 X10^3/uL; Neutrophil # 3.21 X10^3/uL (2.7-7.7); Neutrophil % 61.5 % (47-70); Platelet Count 93 K/mm3 (150-450); RBC Distribution Width CV 14.2 % (11.6-14.6); RBC Distribution Width SD 47.2 fl (35.1-43.9); Red Blood Count 4.67 M/mm3 (4.6-6.2); White Blood Count 5.2 K/mm3 (4.4-11.0)
[2018-02-12 06:13] LABS: POSITIVE COUNT NO; POSITIVE DIFFERENTIAL NO; POSITIVE MORPHOLOGY NO
[2018-02-12 06:27] LABS: ALB/GLOB Ratio 0.9 RATIO (0.9-2.4); AST(SGOT) 83 U/L (15-37); Alanine Aminotransfer ALT/SGPT 96 U/L (16-61); Albumin, Serum 2.8 g/dL (3.2-5.0); Alkaline Phosphatase 55 U/L (45-117); Anion Gap 9 (5-15); BUN 13 mg/dL (7-18); BUN/Creat Ratio 19.8 RATIO (10-20); Chloride 104 mmol/L (98-107); Creatinine, Serum 0.66 mg/dL (0.70-1.30); EST Glomerular Filtration Rate 136 mL/min (>60); Est Glom Filt Rate - Afr Amer 164 mL/min (>60); Glucose 77 mg/dL (74-106); Potassium 3.7 mmol/L (3.5-5.1); Protein, Total 5.8 g/dL (6.4-8.2); Sodium Level 140 mmol/L (136-145)
[2018-02-12 07:40] VITALS: PULSE 67
[2018-02-12] MEDS: Metoprolol(XL)Succ 25 MG Tablet PO (07:40)
[2018-02-12] MEDS: Multivitamins,Ther W-Minerals Tablet 1 TABLET PO (07:41)
[2018-02-12] MEDS: Aspirin 81 MG TAB.CHEW PO (07:41)
[2018-02-12] MEDS: FLUoxetine 20 MG Capsule PO (07:41)
[2018-02-12] MEDS: Clopidogrel Bisulfate 75 MG Tablet PO (07:41)
[2018-02-12] MEDS: Folic Acid 1 MG Tablet PO (07:41)
[2018-02-12] MEDS: Thiamine Hydrochloride 100 MG Tablet PO (07:41)
[2018-02-12 07:55] VITALS: PULSE 83
--- NOTE | 2018-02-12 09:27 | PCA ---
per rn pt does not want to be disturbed until lunch
--- NOTE | 2018-02-12 10:13 | DCINST_ITS ---
You will use the following diet at home:: Cardiac Your food should be the consistency of: Regular Your liquids should be the consistency of: Regular/Thin Discharge Activity: Return to Normal Activity Weight Bearing Status: Weight bearing as tolerated Call your doctor if you observe: Dizziness, Fainting spells, Swelling in the ankles, Chest pain Instructions: Understanding Alcoholism, The Impact of Alcoholism, Alcoholism: How to be Part of the Solution, Alcoholism: Resources for Family and Friends, Alcoholism: Getting Help Allergies/Adverse Reactions: Allergies No Known Allergies Allergy (Verified 02/11/18 10:40) Medications to take at Discharge ALPRAZolam [Xanax] 1 - 2 mg PO QHS PRN 05/27/17 Fluoxetine [Prozac] 20 mg PO DAILY 05/27/17 Aspirin [Aspirin, Baby] 81 mg PO DAILY@0800 10/03/17 atorvastatin 20 mg tablet 20 mg PO DAILY #90 tab 01/04/18 clopidogrel 75 mg tablet 75 mg PO DAILY #90 tab 01/04/18 metoprolol succinate ER 25 mg tablet,extended release 24 hr 25 mg PO DAILY #90 tab 01/04/18 Primary Care Physician: Kendell Lyons DO [Primary Care Provider] - Please follow up with your Primary Care Physician in: 1 week Test Results: Test results from this visit will be discussed in further detail at your follow- up appointment, if applicable. Proposed Discharge Date: 02/12/18
--- NOTE | 2018-02-12 11:24 | PCM.DC.SUM ---
Discharge Date and Diagnosis Date of Admission: 02/11/18 Date of Discharge: 02/12/18 - Primary Discharge Diagnosis acute alcohol withdrawal - Secondary Discharge Diagnosis Chronic Problems (Last Reviewed 01/04/18 @ 16:19 by Socrates Monte MD) Atherosclerosis of coronary artery of [place] heart with angina pectoris (Chronic) BMS-Prox and Distal RCA 12/23/16 Smoking addiction (Chronic) Anxiety (Chronic) Noncompliance (Chronic) Hospital Course and Treatment Operations: None Procedures: None Summary of Care Provided: The patient is a 52 year old M with a history of alcohol abuse, chronic anxiety and CAD s/p SD and stent placement. He was admitted through the ED on 02/11/18 with a complaint of vomiting and excessive alcohol intake. Patient he states he usually drinks about 12 drinks every night and he had about 7 drinks the night before admission. He subsequently started having severe nausea and vomited profusely. Emesis was mainly bilious. He also started having tremors and so decided coming to the hospital to seek help for alcohol withdrawal. In the ED, vitals were significant for tachycardia with heart rate of 136 and tachypnea with respiratory rate of 26. EKG showed sinus tachycardia. Labs showed hb of 17.3 and bilirubin of 1.5, and mildly elevated AST and ALT. Lipase was 162, ruling out acute pancreatitis. He was admitted to be managed for alcohol withdrawal. He was placed on alcohol withdrawal protocol with Librium and Ativan as needed. His CIWA score was monitored. Patient stabilized and his CIWA score came down to 2. On the day after admission, patient insisted on being discharged because he felt well and said he had to go to work and noted to be able to make his car payments and rents. Patient was counseled that it was advisable for him to stay in hospital to complete the Librium taper. However he insisted that he had to go and he had had the shakes for many years and knew how to deal with it. Patient was discharged home on 02/12/2018. He is to follow-up with his PCP. Patient seen and examined prior to discharge. He had an uneventful night and had no complaints. 12 point review of systems was otherwise negative. Labs and vitals reviewed. Home medications reviewed and reconciled. o/e: Vital Signs Height 6 ft 3 in Weight: 185 lb Weight in Pounds 185.0 lbs BMI 26.6 Pulse Ox 95 Temperature 98.3 F Pulse Rate 83 Respiratory Rate 18 Blood Pressure 130/73 Blood Pressure Position Semi-Fowlers General: Alert, Oriented x3, Cooperative, HEENT: Atraumatic, PERRLA, EOMI, Normocephalic Oral: Dry Mucosa Neck: Supple, No JVD, Negative Carotid Bruits Lungs: Clear to auscultation, Normal air movement, No rhonchi, No wheeze, No rales Cardiovascular: Regular rate, Regular Rhythm, Normal S1, Normal S2, No murmurs Abdomen: Bowel Sounds Present, Soft, No Hepato-splenomegaly, RUQ tenderness has resolved; no guarding or rebound tenderness. Extremities: No clubbing, No cyanosis, No edema, Capillary Refill Less than 3 Seconds Skin: No rashes, No breakdown, - - skin appears diffusely erythematous Musculoskeletal: No Tenderness to Palpation of Joints or Extremities Lymphatic: No Cervical, Supraclavicular, or Inguinal Adenopathy Neurological: Cranial nerves II-XII grossly intact, Neuro grossly intact, Motor Exam 5/5 strength throughout Psych/Mental Status: Anxious, Alert and oriented to time, place, person, mood and affect Plan as detailed above. - Physical Exam Vital Signs Temp Pulse Resp BP Pulse Ox 98.3 F 83 18 130/73 H 95 02/12/18 05:32 02/12/18 07:55 02/12/18 05:32 02/12/18 05:32 02/11/18 21:02 Oxygen Delivery Method Room Air Weight: 185 lb Body Mass Index (BMI) 23.1 Intake and Output for Last 24 Hours 02/10/18 02/11/18 02/12/18 23:59 23:59 23:59 Intake Total 390 / 390 1537 / 1537 Balance 390 / 390 1537 / 1537 Laboratory Tests Past 24 Hrs 02/11/18 02/11/18 02/11/18 12:25 12:25 12:25 WBC 9.4 RBC 5.53 Hgb 17.3 H Hct 49.3 MCV 89.2 MCH 31.3 MCHC 35.1 RDW 14.0 RDW Differential 45.8 H Plt Count 114 L MPV 11.4 Immature Gran % (Auto) 0.200 Neut % (Auto) 84.6 H Lymph % (Auto) 8.2 L [place] % (Auto) 6.9 Eos % (Auto) 0.1 Baso % (Auto) 0.0 Absolute Neuts (auto) 8.0 H Absolute Lymphs (auto) 0.77 L Total Counted Not Reportable Sodium 135 L Potassium 3.8 Chloride 96 L Carbon Dioxide 27.0 Anion Gap 12 BUN 9 Creatinine 0.87 Estim Creat Clear Calc 118.71 Est GFR (MDRD) Af Amer 118 Est GFR (MDRD) Non-Af 97 BUN/Creatinine Ratio 10.3 Glucose 94 Calcium 8.4 L Total Bilirubin 1.50 H AST 128 H ALT 131 H Alkaline Phosphatase 70 Troponin I < 0.015 Total Protein 7.1 Albumin 3.6 Globulin 3.5 Albumin/Globulin Ratio 1.0 Lipase Urine Opiates Screen Urine Methadone Screen Ur Barbiturates Screen Ur Phencyclidine Scrn Ur Amphetamines Screen U Methamphetamin-MDMA U Benzodiazepines Scrn Urine Cocaine Screen U Cannabinoids Screen Ur Drug Screen Comment Ethyl Alcohol < 3.0 02/11/18 02/11/18 02/12/18 12:25 17:20 05:14 WBC 5.2 RBC 4.67 Hgb 14.9 Hct 43.2 MCV 92.5 MCH 31.9 MCHC 34.5 RDW 14.2 RDW Differential 47.2 H Plt Count 93 L MPV 12.0 Immature Gran % (Auto) 0.200 Neut % (Auto) 61.5 Lymph % (Auto) 27.1 [place] % (Auto) 10.0 Eos % (Auto) 1.0 Baso % (Auto) 0.2 Absolute Neuts (auto) 3.2 Absolute Lymphs (auto) 1.41 Total Counted Not Reportable Sodium Potassium Chloride Carbon Dioxide Anion Gap BUN Creatinine Estim Creat Clear Calc Est GFR (MDRD) Af Amer Est GFR (MDRD) Non-Af BUN/Creatinine Ratio Glucose Calcium Total Bilirubin AST ALT Alkaline Phosphatase Troponin I Total Protein Albumin Globulin Albumin/Globulin Ratio Lipase 162 Urine Opiates Screen NEGATIVE Urine Methadone Screen NEGATIVE Ur Barbiturates Screen NEGATIVE Ur Phencyclidine Scrn NEGATIVE Ur Amphetamines Screen NEGATIVE U Methamphetamin-MDMA NEGATIVE U Benzodiazepines Scrn POSITIVE H Urine Cocaine Screen NEGATIVE U Cannabinoids Screen NEGATIVE Ur Drug Screen Comment Ethyl Alcohol 02/12/18 05:14 WBC RBC Hgb Hct MCV MCH MCHC RDW RDW Differential Plt Count MPV Immature Gran % (Auto) Neut % (Auto) Lymph % (Auto) [place] % (Auto) Eos % (Auto) Baso % (Auto) Absolute Neuts (auto) Absolute Lymphs (auto) Total Counted Sodium 140 Potassium 3.7 Chloride 104 Carbon Dioxide 27.0 Anion Gap 9 BUN 13 Creatinine 0.66 L Estim Creat Clear Calc 155.40 Est GFR (MDRD) Af Amer 164 Est GFR (MDRD) Non-Af 136 BUN/Creatinine Ratio 19.8 Glucose 77 Calcium 8.0 L Total Bilirubin 0.90 AST 83 H ALT 96 H Alkaline Phosphatase 55 Troponin I Total Protein 5.8 L Albumin 2.8 L Globulin 3.0 Albumin/Globulin Ratio 0.9 Lipase Urine Opiates Screen Urine Methadone Screen Ur Barbiturates Screen Ur Phencyclidine Scrn Ur Amphetamines Screen U Methamphetamin-MDMA U Benzodiazepines Scrn Urine Cocaine Screen U Cannabinoids Screen Ur Drug Screen Comment Ethyl Alcohol Discharge Diet: Low fat/ Low Cholesterol Discharge Activity: Return to Normal Activity Weight Bearing Status: Weight bearing as tolerated Call your doctor if you observe: Dizziness, Fainting spells, Swelling in the ankles, Chest pain Home Medications: Medications to take at Discharge ALPRAZolam [Xanax] 1 - 2 mg PO QHS PRN 05/27/17 Fluoxetine [Prozac] 20 mg PO DAILY 05/27/17 Aspirin [Aspirin, Baby] 81 mg PO DAILY@0800 10/03/17 atorvastatin 20 mg tablet 20 mg PO DAILY #90 tab 01/04/18 clopidogrel 75 mg tablet 75 mg PO DAILY #90 tab 01/04/18 metoprolol succinate ER 25 mg tablet,extended release 24 hr 25 mg PO DAILY #90 tab 01/04/18 Primary Care Physician: Kendell Lyons DO [Primary Care Provider] - Please follow up with your Primary Care Physician in: 1 week Patient Instructions: Understanding Alcoholism, The Impact of Alcoholism, Alcoholism: How to be Part of the Solution, Alcoholism: Resources for Family and Friends, Alcoholism: Getting Help Disposition: Home Minutes spent on discharge:: 40 Patient Condition:: Stable Medical Necessity - Tobacco Use Smoking Status: Current every day smoker Tobacco Use: Cigarettes Meaningful Use Info Meaningful Use Diagnoses (Choose all that apply): None applicable Code Visit Inpatient E&M: 63847 Disch Hosp
== END 2018-02-12 12:45 | disposition home or self-care (01) | DRG 897 ==
LOC: ED 11:17 → MS2 14:07
PROVIDERS: Admitting Provider Student in an Organized Health Care Education/Training Program; Emergency Provider Emergency Medicine; Family Provider Family Medicine; PCP Family Medicine; Referring Provider Student in an Organized Health Care Education/Training Program; Visit Provider Student in an Organized Health Care Education/Training Program
DX: F10.239 Alcohol dependence with withdrawal, unspecified (principal); I25.10 Atherosclerotic heart disease of native coronary artery without angina pectoris; F17.210 Nicotine dependence, cigarettes, uncomplicated; F41.1 Generalized anxiety disorder; I10 Essential (primary) hypertension; Z95.5 Presence of coronary angioplasty implant and graft; I25.2 Old myocardial infarction
CPT/HCPCS: 36415; 71045; 80053; 80307; 80320; 83690; 84484; 85025; 93005; 99283; 99406; J7030; A4216; G0480; J2405

== ENCOUNTER 2018-02-28 02:39 | Emergency (ER) | payer SELFPAY ==
[2017-01-12 13:36] VITALS: BMI 26.6
[2018-02-11 14:27] VITALS: BMI 23.1
[2018-02-28 02:40] VITALS: BP 118/79; PULSE 75; RESP 16; TEMP 36.6; O2SAT 99; BMI 23.1
--- NOTE | 2018-02-28 03:10 | RAD_ITS ---
STUDY: X-RAY - UNILATERAL RIBS ( LEFT ) WITH CHEST REASON FOR EXAM: Male, 52 years old. Fall from bottom rung of ladder. Left rib and back pain. TECHNIQUE - RIBS: 4 view(s) of the ribs. TECHNIQUE - CHEST: 1 COMPARISON: Chest x-ray February 11, 2018. FINDINGS - RIBS: Normal visualized ribs without a demonstrated fracture. FINDINGS - CHEST: The lungs are clear and expanded. There is no demonstrated pleural abnormality. Normal size heart. Normal mediastinum and stephen. Normal visualized pulmonary arteries. Normal visualized aortic arch and descending thoracic aorta. Normal visualized thoracic spine. Normal visualized ribs, clavicles, and shoulders. There is no demonstrated abnormality of the visualized soft tissue structures of the upper abdomen. RAD/Ribs Uni Min 3V w/PA Chest IMPRESSION: RIBS: Normal x-ray examination of the ribs. CHEST: Normal x-ray examination of the chest. Electronically Signed: Donald Peck MD at 3:47 EST , Service support ,
[2018-02-28] MEDS: Naproxen 500 MG Tablet PO (03:24)
--- NOTE | 2018-02-28 04:10 | ED.DCSUM_ITS ---
- ER Visit Summary Date of Service: 02/28/18 Chief Complaint: Back pain History of Present Illness: The patient is a 52 M who presents with back and chest wall pain. He was stepping down off the ladder when he missed the last step and fell into a table hitting his left lower ribs. This occurred about 15 hours ago. His pain is worse with certain movements or cough. No shortness of breath. Physical Examination: Afebrile vitals normal Patient does have tenderness over the left lower lateral chest wall and ribs he does not have any crepitus I do not appreciate any ecchymosis, no rash Heart is regular rate and rhythm Lungs are clear with equal breath sounds no rales rhonchi or wheezes Abdomen soft nontender nondistended Alert Test Results: Rib series with a PA chest shows normal ribs and normal chest Emergency Department Course and Treatment: Patient was given naproxen here. He was given a home pack of [place] and a prescription for same. He was given an incentive spirometer. He was instructed on supportive care. He understands to return for new or worsening symptoms. He was discharged. Treatment Plan: [] Disposition: Discharge Impression: Chest contusion This note was generated with [employer] dictation software. It may contain incorrect words, spelling, and punctuation that were not noted in review of the chart prior to signing ED Disposition - Plan for ED Patient: Chief Complaint: Back Referrals: Kendell Lyons DO [Primary Care Provider] -
--- NOTE | 2018-02-28 04:12 | DCINST.ED_ITS ---
ED Disposition - Plan for ED Patient: Chief Complaint: Back Instructions: ED Contusion Chest Wall Prescriptions: Hydrocodone Bitart/Apap 5-325 [[place] 5MG-325MG] 1 tab PO Q6H PRN 2 Days #8 tab PRN Reason: Pain Referrals: Kendell Lyons DO [Primary Care Provider] -
[2018-02-28] MEDS: HYDROcodone Bitartrate/Apap 5/325 Tablet PO (04:15)
[2018-02-28 04:17] VITALS: BP 116/70; PULSE 80; RESP 16; O2SAT 96
--- OUTSIDE RECORDS SUMMARY | 2018-05-02 06:17 | XMS RPT_ITS ---
:1965 Author Organization [place] Support Name Relationship Address Phone JARED MOTA Unavailable Unavailable + [place] [address] [employer] Unavailable [address] + [place] [address] NAKUL, JARED Unavailable Unavailable + [place] [address] [employer] Unavailable [address] + [place] [address] NAKUL, JARED Unavailable Unavailable + [place] [address] [employer] Unavailable [address] + [place] [address] NAKUL, JARED Unavailable Unavailable + [place] [address] [employer] Unavailable [address] + [place] [address] NAKUL, JRAED Unavailable Unavailable + [place] [address] [employer] Unavailable [address] + [place] [address] NAKUL, JARED Unavailable . + [place] [address] [employer] Unavailable [address] + [place] [address] NAKUL, JARED Unavailable . + [place] [address] [employer] Unavailable [address] + [place] [address] NAKUL, JARED Unavailable . + [place] [address] [employer] Unavailable [address] + [place] [address] JARED MOTA Unavailable Unavailable + [place] [address] [employer] Unavailable [address] + [place] [address] JARED MOTA Unavailable Unavailable + [place] [address] [employer] Unavailable [address] + [place] [address] [employer] Unavailable [address] + [place] [address] [employer] Unavailable [address] + [place] [address] [employer] Unavailable [address] + [place] [address] [employer] Unavailable [address] + [place] [address] JARED MOT[employer] Unavailable [address] [phone] [place] [address] [employer] Unavailable [address] + [place] [address] [employer] Unavailable [address] + [place] [address] [employer] Unavailable [address] + [place] [address] [employer] Unavailable [address] + [place] [address] [employer] Unavailable [address] + [place] [address] [employer] Unavailable [address] + [place] [address] [employer] Unavailable [address] + [place] [address] [employer] Unavailable [address] + [place] [address] Care Team Providers Name Role Phone Lisa Palacios Admitting Unavailable Lisa Palacios Attending Unavailable Koram, Lisa Alicia Referring Unavailable Serena, Kendell Primary Care Unavailable Koram, Lisa Alicia Consulting Unavailable Serena, Kendell Primary Care Unavailable Bryn Bailey Attending Unavailable Socrates Monte Attending Unavailable Serena, Kendell Referring Unavailable Koram, Lisa Alicia Admitting Unavailable Koram, Lisa Alicia Attending Unavailable Koram, Lisa Alicia Referring Unavailable Serena, Kendell Primary Care Unavailable Koram, Lisa Alicia Consulting Unavailable Serena, Kendell Primary Care Unavailable Koram, Lisa Alicia Admitting Unavailable Koram, Lisa Alicia Attending Unavailable Koram, Lisa Alicia Referring Unavailable Serena, Kendell Primary Care Unavailable Hina Kraft Attending Unavailable Serena, Kendell Primary Care Unavailable Shane Dickson Attending Unavailable Serena, Kendell Primary Care Unavailable Hina Kraft Attending Unavailable Serena, Kendell Primary Care Unavailable Aiden Gonzalez Attending Unavailable Mell, Socrates Attending Unavailable Primay Care Physicia, No Referring Unavailable Serena, Kendell Primary Care Unavailable Agustin Abarca Attending Unavailable Serena, Kendell Primary Care Unavailable Bryn Bailey Attending Unavailable Serena, Kendell Primary Care Unavailable Thad Atkins Attending Unavailable Serena, Kendell Primary Care Unavailable Carlos, Aiden Attending Unavailable Gautam Alvarez Attending Unavailable Ashelfah, Ghasem Referring Unavailable Ashelfah, Ghasem Admitting Unavailable Ashelfah, Ghasem Attending Unavailable Serena, Kendell Primary Care Unavailable Ashelfah, Ghasem Consulting Unavailable Ashelfah, Ghasem Admitting Unavailable Ashelfah, Ghasem Attending Unavailable Serena, Kendell Primary Care Unavailable Ashelfah, Ghasem Consulting Unavailable Serena, Kendell Primary Care Unavailable Ashelfah, Ghasem Admitting Unavailable Ashelfah, Ghasem Attending Unavailable Mell, Mulberry Attending Unavailable Primay Care Physicia, No Referring Unavailable Serena, Kendell Primary Care Unavailable Thad Hodge Attending Unavailable Serena, Kendell Primary Care Unavailable Alfredo Kumar Attending Unavailable Serena, Kendell Primary Care Unavailable Agustin Abarca Attending Unavailable PROBLEMS PROBLEMS DATE TYPE CONDITION / CODE ATTENDING STATUS SOURCE 03/01/2018 Unknown S20.219A - Contusion Bryn Bailey Active [facility] unspecified front Community wall of thorax, Hospital initial encounter / Repository S20.219A(ICD-10) 01/04/2018 Unknown I25.119 - Mell, Mulberry Active [place] Atherosclerotic heart [facility] disease [facility] coronary artery with Repository unspecified angina pectoris / I25.119(ICD-10) 01/04/2018 Unknown R00.2 - Palpitations Mell, Mulberry Active [place] / R00.2(ICD-10) [facility] Repository 01/04/2018 Unknown F17.200 - Nicotine Mell, Socrates Active [place] dependence, Community unspecified, Hospital uncomplicated / Repository F17.200(ICD-10) 05/05/2017 Unknown R07.9 - Chest pain, [place], Gautam Active [place] unspecified / Community R07.9(ICD-10) Hospital Repository PROCEDURES PROCEDURES No Procedure Records FoundRESULTS RESULTS EMERGENCY DEPARTMENT Observed: 03/04/2018 Status: F Source: [place] SUMMARY 3:01 AM [facility] REPOSITORY [facility] Medical Records Department [address] [place] [address] Emergency Department Summary 03/04/18 0235 MR#: [id number] Acct: [id number] Name: ORQUIDEA JUÁREZ Rep #: [id number] : 1965 52 From: Bryn Bailey MD PCP: Kendell Lyons DO Status: REG ER ADDENDUM by Bryn Bailey MD on 03/04/18 at 0301 I was notified by nursing that the patient refused the etodolac stating that he was taking anti-inflammatories already at home and it was not helping. He then requested a prescription for more [place] despite the fact that he states he still has several tablets at home. He was advised he would not be provided further opiate prescription. 03/04/18 0301 Date Bryn Bailey MD cc: Kendell Lyons DO * Signed - ER Visit Summary Date of Service: 03/04/18 Chief Complaint: Back pain History of Present Illness: The patient is a 52 M who presents with back pain. 5 days ago he was stepping down off of a ladder when he fell and hit his left ribs into the edge of a table. He was seen the next day by myself and had a negative rib series with chest x-ray. He was given a prescription for [place]. He states he has not really been taking this because he does not like the way it makes him feel. He has been taking naproxen with only little relief. He complains of left mid back pain and rib pain which is worse with coughing or twisting to the right. No anterior chest pain. No shortness of breath. No abdominal pain. He states he came back in because he knows that nothing was seen on x-rays but is still concerned that something may be wrong and he was also worried about a possible injury to his kidney. No hematuria. Physical Examination: Afebrile vitals normal No distress Heart regular rate and rhythm Lungs are clear with equal breath sounds Patient has tenderness over the left lower posterior thoracic region Abdomen is soft nontender nondistended No CVA tenderness Test Results: Not indicated Emergency Department Course and Treatment: Patient was concerned about possible kidney injury. I explained that the distribution of his pain is well above his costovertebral angle and above where I expect pain to be from a retroperitoneal/kidney injury. With no abdominal pain or tenderness and normal vitals 5 days after the injury I feel significant intra-abdominal or retroperitoneal injury is very unlikely. I do not believe any further imaging is warranted. He denies any shortness of breath and has equal breath sounds. I have very low clinical suspicion for process such as pneumothorax given the focal area of tenderness in the left posterior thoracic region and recent normal x-rays the day after the fall. Patient declined any repeat x-rays. I explained to the patient that his pain could still be easily explained by chest wall contusion despite negative x-rays. He vocalized understanding. He was given etodolac here for pain as he did not tolerate the opiates well as well as a prescription for the same. He understands to return for new or worsening symptoms. All questions answered bedside. Patient discharged. Treatment Plan: [] Disposition: Discharge Impression: Chest wall contusion This note was generated with Spotistic dictation software. It may contain incorrect words, spelling, and punctuation that were not noted in review of the chart prior to signing ED Disposition - Plan for ED Patient: Chief Complaint: Back Referrals: NOT,DEFINED [Primary Care Provider] - What to do if you have Problems For any increased pain, shortness of breath, bleeding, nausea or vomiting, chest pain, or any unexpected problems, contact your Primary Care Provider. Call [facility] ([phone]) or report to the closest Emergency Room. Call 911 if necessary. 03/04/18240 <Electronically signed by Bryn Bailey MD> Date Bryn Bailey MD Cosigner Signature (If Indicated): Date CC: Kendell Lyons DO DISCHARGE INSTRUCTION Observed: 03/04/2018 Status: F Source: [place] 2:43 [facility] REPOSITORY [facility] Medical Records Department [address] [place] [address] Discharge Instruction 03/04/18240 MR#: [id number] Acct: [id number] Name: ORQUIDEA JUÁREZ JOHNSON Rep #: [id number] : 1965 52 From: Bryn Bailey MD PCP: Kendell Lyons DO Status: REG ER ED Disposition - Plan for ED Patient: Chief Complaint: Back Instructions: ED Contusion Chest Wall, ED Contusion Back Prescriptions: Etodolac 400 mg PO Q8H #20 tab Referrals: NOT,DEFINED [Primary Care Provider] - What to do if you have Problems For any increased pain, shortness of breath, bleeding, nausea or vomiting, chest pain, or any unexpected problems, contact your Primary Care Provider. Call [facility] ([phone]) or report to the closest Emergency Room. Call 911 if necessary. 03/04/18242 <Electronically signed by Bryn Bailey MD> Date Bryn Leo MD Cosigner Signature (If Indicated): Date CC: Kendell Lyons DO DISCHARGE INSTRUCTION Observed: 02/28/2018 Status: F Source: [place] 4:12 AM [facility] REPOSITORY [facility] Medical Records Department [address] [place] [address] Discharge Instruction 02/28/180 MR#: [id number] Acct: [id number] Name: ORQUIDEA JUÁREZ Rep #: [id number] : 1965 52 From: Bryn Bailey MD PCP: Kendell Lyons DO Status: REG ER ED Disposition - Plan for ED Patient: Chief Complaint: Back Instructions: ED Contusion Chest Wall Prescriptions: Hydrocodone Bitart/Apap 5-325 [Buffalo 5MG-325MG] 1 tab PO Q6H PRN 2 Days #8 tab PRN Reason: Pain Referrals: Kendell Lyons DO [Primary Care Provider] - What to do if you have Problems For any increased pain, shortness of breath, bleeding, nausea or vomiting, chest pain, or any unexpected problems, contact your Primary Care Provider. Call [facility] ([phone]) or report to the closest Emergency Room. Call 911 if necessary. 02/28/18411 <Electronically signed by Bryn Bailey MD> Date Bryn Bailey MD Cosigner Signature (If Indicated): Date CC: Kendell Lyons DO EMERGENCY DEPARTMENT Observed: 02/28/2018 Status: F Source: [place] SUMMARY 4:10 AM [facility] REPOSITORY [facility] Medical Records Department [address] [place] [address] Emergency Department Summary 02/28/18 0408 MR#: [id number] Acct: [id number] Name: ORQUIDEA JUÁREZ Rep #: [id number] : 1965 52 From: Bryn Bailey MD PCP: Kendell Lyons DO Status: REG ER - ER Visit Summary Date of Service: 02/28/18 Chief Complaint: Back pain History of Present Illness: The patient is a 52 M who presents with back and chest wall pain. He was stepping down off the ladder when he missed the last step and fell into a table hitting his left lower ribs. This occurred about 15 hours ago. His pain is worse with certain movements or cough. No shortness of breath. Physical Examination: Afebrile vitals normal Patient does have tenderness over the left lower lateral chest wall and ribs he does not have any crepitus I do not appreciate any ecchymosis, no rash Heart is regular rate and rhythm Lungs are clear with equal breath sounds no rales rhonchi or wheezes Abdomen soft nontender nondistended Alert Test Results: Rib series with a PA chest shows normal ribs and normal chest Emergency Department Course and Treatment: Patient was given naproxen here. He was given a home pack of [place] and a prescription for same. He was given an incentive spirometer. He was instructed on supportive care. He understands to return for new or worsening symptoms. He was discharged. Treatment Plan: [] Disposition: Discharge Impression: Chest contusion This note was generated with Spotistic dictation software. It may contain incorrect words, spelling, and punctuation that were not noted in review of the chart prior to signing ED Disposition - Plan for ED Patient: Chief Complaint: Back Referrals: Kendell Lyons DO [Primary Care Provider] - What to do if you have Problems For any increased pain, shortness of breath, bleeding, nausea or vomiting, chest pain, or any unexpected problems, contact your Primary Care Provider. Call [facility] ([phone]) or report to the closest Emergency Room. Call 911 if necessary. 02/28/18 0410 <Electronically signed by Bryn Bailey MD> Date Bryn Bailey MD Cosigner Signature (If Indicated): Date CC: Kendell Lyons DO RIBS UNI MIN 3V Observed: 02/28/2018 Status: F Source: [place] W/PA CHEST 3:10 AM [facility] REPOSITORY [facility] Imaging Services [address] [place] [address] Ribs Uni Min 3V w/PA Chest MR#: [id number] Acct: [id number] Name: ORQUIDEA JUÁREZ Rep #: [id number] : 1965 M 52 From: Donald Peck PCP: Kendell Lyons DO Status: REG ER Study: Ribs Uni Min 3V w/PA Chest Date of Exam: 02/28/18 Exam# [id number] Ordering Dr: Bryn Bailey MD STUDY: X-RAY - UNILATERAL RIBS ( LEFT ) WITH CHEST REASON FOR EXAM: Male, 52 years old. Fall from bottom rung of ladder. Left rib and back pain. TECHNIQUE - RIBS: 4 view(s) of the ribs. TECHNIQUE - CHEST: 1 COMPARISON: Chest x-ray February 11, 2018. FINDINGS - RIBS: Normal visualized ribs without a demonstrated fracture. FINDINGS - CHEST: The lungs are clear and expanded. There is no demonstrated pleural abnormality. Normal size heart. Normal mediastinum and stephen. Normal visualized pulmonary arteries. Normal visualized aortic arch and descending thoracic aorta. Normal visualized thoracic spine. Normal visualized ribs, clavicles, and shoulders. There is no demonstrated abnormality of the visualized soft tissue structures of the upper abdomen. RAD/Ribs Uni Min 3V w/PA Chest IMPRESSION: RIBS: Normal x-ray examination of the ribs. CHEST: Normal x-ray examination of the chest. Electronically Signed: Donald Peck MD at 3:47 EST , Service support , CC: Bryn Bailey MD; Kendell Lyons DO Arc Cutter: Signed 12 LEAD ELECTROCARDIOGRAM Observed: 02/14/2018 Status: F Source: [place] 9:03 AM [facility] Cardiovascular Services [address] [place] [address] 12 Lead EKG 02/11/18 1111 MR#: [id number] Acct: [id number] Name: ORQUIDEA JUÁREZ Rep #: [id number] : 1965 52 From: Socrates Monte MD Attending Dr: Lisa Palacios MD Status: DIS IN Ordering Dr: Thad Hodge MD Date: 02/11/18 Location: [facility] Sex: M C Admitted: 02/11/18 Test Reason : ALCOHOL WITHDRAWAL Blood Pressure : / mmHG Vent. Rate : 086 BPM Atrial Rate : 086 BPM P-R Int : 136 ms QRS Dur : 084 ms QT Int : 400 ms P-R-T Axes : 008 086 -09 degrees QTc Int : 478 ms Sinus rhythm with sinus arrhythmia with occasional Premature ventricular complexes Abnormal QRS-T angle, consider primary T wave abnormality Abnormal ECG Confirmed by MELL VENTURA, SOCRATES ([id number]), videotape editor ASHLEY SHIELDS ([id number]) on 02/14/2018 9:03:08 AM Referred By: Lisa Palacios Confirmed By:SOCRATES MONTE MD 02/14/18 0903 Date Socrates Monte MD CC: Thad Hodge MD; Kendell Lyons DO; Lisa Palacios MD Signed DISCHARGE SUMMARY Observed: 02/12/2018 Status: F Source: [place] 11:57 AM [facility] REPOSITORY [facility] Medical Records Department [address] [place] [address] Discharge Summary 02/12/18 1124 MR#: [id number] Acct: [id number] Name: ORQUIDEA JUÁREZ Rep #: [id number] : 1965 52 From: Lisa Palacios MD PCP: Kendell Lyons DO Status: ADM IN Y Location: [facility] [id number] Discharge Date and Diagnosis Date of Admission: 02/11/18 Date of Discharge: 02/12/18 - Primary Discharge Diagnosis acute alcohol withdrawal - Secondary Discharge Diagnosis Chronic Problems (Last Reviewed 01/04/18 @ 16:19 by Socrates Monte MD) 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 He was admitted through the ED on 02/11/18 with a complaint of vomiting and excessive alcohol intake. Patient he states he usually drinks about 12 drinks every night and he had about 7 drinks the night before admission. He subsequently started having severe nausea and vomited profusely. Emesis was mainly bilious. He also started having tremors and so decided coming to the hospital to seek help for alcohol withdrawal. In the ED, vitals were significant for tachycardia with heart rate of 136 and tachypnea with respiratory rate of 26. EKG showed sinus tachycardia. Labs showed hb of 17.3 and bilirubin of 1.5, and mildly elevated AST and ALT. Lipase was 162, ruling out acute pancreatitis. He was admitted to be managed for alcohol withdrawal. He was placed on alcohol withdrawal protocol with Librium and Ativan as needed. His CIWA score was monitored. Patient stabilized and his CIWA score came down to 2. On the day after admission, patient insisted on being discharged because he felt well and said he had to go to work and noted to be able to make his car payments and rents. Patient was counseled that it was advisable for him to stay in hospital to complete the Librium taper. However he insisted that he had to go and he had had the shakes for many years and knew how to deal with it. Patient was discharged home on 02/12/2018. He is to follow-up with his PCP. Patient seen and examined prior to discharge. He had an uneventful night and had no complaints. 12 point review of systems was otherwise negative. Labs and vitals reviewed. Home medications reviewed and reconciled. o/e: Vital Signs Height 6 ft 3 in Weight: 185 lb Weight in Pounds 185.0 lbs BMI 26.6 Pulse Ox 95 General: Alert, Oriented x3, Cooperative, HEENT: Atraumatic, PERRLA, EOMI, Normocephalic Oral: Dry Mucosa Neck: Supple, No JVD, Negative Carotid Bruits Lungs: Clear to auscultation, Normal air movement, No rhonchi, No wheeze, No rales Cardiovascular: Regular rate, Regular Rhythm, Normal S1, Normal S2, No murmurs Abdomen: Bowel Sounds Present, Soft, No Hepato-splenomegaly, RUQ tenderness has resolved; no guarding or rebound tenderness. Extremities: No clubbing, No cyanosis, No edema, Capillary Refill Less than 3 Seconds Skin: No rashes, No breakdown, - - skin appears diffusely erythematous Musculoskeletal: No Tenderness to Palpation of Joints or Extremities Lymphatic: No Cervical, Supraclavicular, or Inguinal Adenopathy Neurological: Cranial nerves II-XII grossly intact, Neuro grossly intact, Motor Exam 5/5 strength throughout Psych/Mental Status: Anxious, Alert and oriented to time, place, person, mood and affect Plan as detailed above. - Physical Exam Vital Signs Temp Pulse Resp BP Pulse Ox 98.3 F 83 18 130/73 H 95 02/12/18 05:32 02/12/18 07:55 02/12/18 05:32 02/12/18 05:32 02/11/18 21:02 Oxygen Delivery Method Room Air Weight: 185 lb Body Mass Index (BMI) 23.1 Intake and Output for Last 24 Hours Intake Total 390 / 390 1537 / 1537 Balance 390 / 390 1537 / 1537 Laboratory Tests Past 24 Hrs WBC 9.4 RBC 5.53 Hgb 17.3 H WBC 5.2 Discharge Diet: Low fat/ Low Cholesterol Discharge Activity: Return to Normal Activity Weight Bearing Status: Weight bearing as tolerated Call your doctor if you observe: Dizziness, Fainting spells, Swelling in the ankles, Chest pain Home Medications: Medications to take at Discharge ALPRAZolam [Xanax] 1 - 2 mg PO QHS PRN 05/27/17 Fluoxetine [Prozac] 20 mg PO DAILY 05/27/17 Aspirin [Aspirin, Baby] 81 mg PO DAILY@0800 10/03/17 atorvastatin 20 mg tablet 20 mg PO DAILY #90 tab 01/04/18 clopidogrel 75 mg tablet 75 mg PO DAILY #90 tab 01/04/18 metoprolol succinate ER 25 mg tablet,extended release 24 hr 25 mg PO DAILY #90 tab 01/04/18 Primary Care Physician: Kendell Lyons DO [Primary Care Provider] - Please follow up with your Primary Care Physician in: 1 week Patient Instructions: Understanding Alcoholism, The Impact of Alcoholism, Alcoholism: How to be Part of the Solution, Alcoholism: Resources for Family and Friends, Alcoholism: Getting Help Disposition: Home Minutes spent on discharge:: 40 Patient Condition:: Stable Medical Necessity - Tobacco Use Smoking Status: Current every day smoker Tobacco Use: Cigarettes Meaningful Use Info Meaningful Use Diagnoses (Choose all that apply): None applicable Code Visit Inpatient E AND M: 71897 Disch Hosp 02/12/18 1157 <Electronically signed by Lisa Palacios MD> Date Lisa Palacios MD Cosigner Signature (if applicable): Date CC: Kendell Lyons DO; Lisa Palacios MD Signed DISCHARGE INSTRUCTION Observed: 02/12/2018 Status: F Source: [place] 10:13 AM [facility] REPOSITORY [facility] Medical Records Department [address] [address] Instructions for Home/Discharge Instructions 02/12/18 1011 MR#: [id number] Acct: [id number] Name: ORQUIDEA JUÁREZ Rep #: [id number] : 1965 52 From: Lisa Palacios MD PCP: Kendell Lyons DO Status: ADM IN You will use the following diet at home:: Cardiac Your food should be the consistency of: Regular Your liquids should be the consistency of: Regular/Thin Discharge Activity: Return to Normal Activity Weight Bearing Status: Weight bearing as tolerated Call your doctor if you observe: Dizziness, Fainting spells, Swelling in the ankles, Chest pain Instructions: Understanding Alcoholism, The Impact of Alcoholism, Alcoholism: How to be Part of the Solution, Alcoholism: Resources for Family and Friends, Alcoholism: Getting Help Allergies/Adverse Reactions: Allergies No Known Allergies Allergy (Verified 02/11/18 10:40) Medications to take at Discharge ALPRAZolam [Xanax] 1 - 2 mg PO QHS PRN 05/27/17 Fluoxetine [Prozac] 20 mg PO DAILY 05/27/17 Aspirin [Aspirin, Baby] 81 mg PO DAILY@0800 10/03/17 atorvastatin 20 mg tablet 20 mg PO DAILY #90 tab 01/04/18 clopidogrel 75 mg tablet 75 mg PO DAILY #90 tab 01/04/18 metoprolol succinate ER 25 mg tablet,extended release 24 hr 25 mg PO DAILY #90 tab 01/04/18 Primary Care Physician: Kendell Lyons DO [Primary Care Provider] - Please follow up with your Primary Care Physician in: 1 week Test Results: Test results from this visit will be discussed in further detail at your follow-up appointment, if applicable. Proposed Discharge Date: 02/12/18 02/12/18 1013 <Electronically signed by Lisa Palacios MD> Date Lisa Palacios MD CC: Kendell Lyons DO Signed CBC W/DIFF, AUTOMATED Collected: 02/12/2018 Status: F Source: [place] 5:14 AM [facility] REPOSITORY TYPE CODE TESTS RESULT OUT OF RANGE REFERENCE UNITS LAB L100.1000 4.4-11.0 K/mm3 Normal WBC 5.2 LAB L100.1200 4.6-6.2 M/mm3 Normal RBC 4.67 LAB L100.1300 13.0-16.5 g/dl Normal HGB 14.9 LAB L100.1400 40-54 % Normal HCT 43.2 LAB L100.1500 80-94 fL Normal MCV 92.5 LAB L100.1600 27.0-32.0 pg Normal MCH 31.9 LAB L100.1700 32-36 g/gl Normal MCHC 34.5 LAB L100.1810 11.6-14.6 % Normal RDW CV 14.2 LAB L100.1820 35.1-43.9 fl High RDW SD 47.2 LAB L100.1900 150-450 K/mm3 Low PLT 93 LAB L100.2000 6.2-12.0 fl Normal MPV 12.0 LAB L100.2100 47-70 % Normal NEUT% 61.5 LAB L100.2200 19-41 % Normal LY% 27.1 LAB L100.2300 0-10 % Normal MONO% 10.0 LAB L100.2400 0-5 % Normal EO% 1.0 LAB L100.2500 0-1 % Normal BASO% 0.2 LAB L100.2550 0.0-0.9 % Normal IM GRAN % 0.200 Result Comment: IG% - Immature Granulocytes (promyelocytes, myelocytes and metamyelocytes) > 1% indicates that a LEFT SHIFT is Present. LAB L100.2620 2.0-7.7 X10 3/uL Normal Absolute Neut 3.2 LAB L100.2720 0.83-4.51 X10 3/ul Normal Absolute Lymph 1.41 Performed By: #### L100.0100 #### [facility] [address] [place], [address] COMPREHENSIVE METABOLIC Collected: 02/12/2018 Status: F Source: [facility] 5:14 AM [facility] REPOSITORY TYPE CODE TESTS RESULT OUT OF RANGE REFERENCE UNITS LAB L501.0100 74-106 mg/dL Normal GLU 77 Result Comment: Please note revised GLUCOSE reference range effective 2017. LAB L501.1000 7-18 mg/dL Normal BUN 13 LAB L501.1100 0.70-1.30 mg/dL Low CREAT,SERUM 0.66 Result Comment: The validity of the calculated GFR AND GFRAA in patients over 70 years has not been determined. Clinical correlation is essential. LAB L501.1110 >60 mL/min Normal EST GFR 136 Result Comment: Non- GFR Calc LAB L501.1115 >60 mL/min Normal EST GFR - AA 164 Result Comment: GFR Calc LAB L501.1255 ml/min Normal Estimated CRCL 155.40 LAB L501.1300 10-20 RATIO BUN/CRE Normal 19.8 LAB L501.1500 6.4-8. g/dL Low 2 T PROT 5.8 LAB L501.1800 3.2-5. g/dL Low 0 ALB 2.8 LAB L501.1950 2.2-4. g/dL 2 GLOB Normal 3.0 LAB L501.2000 0.9-2. RATIO 4 A/G Normal 0.9 LAB L501.2200 8.5-10 mg/dL Low .1 CA 8.0 LAB L501.4100 15-37 U/L High AST 83 LAB L501.4305 45-117 U/L ALK P Normal 55 LAB L501.4405 16-61 U/L High ALT 96 LAB L501.4600 0.20-1 mg/dL .00 T BILI Normal 0.90 LAB L501.5300 136-14 mmol/L 5 NA Normal 140 LAB L501.5600 3.5-5. mmol/L 1 K Normal 3.7 LAB L501.5900 98-107 mmol/L CL Normal 104 LAB L501.6100 21.0-3 mmol/L 2.0 CO2 Normal 27.0 LAB L501.6200 5-15 GAP Normal 9 Performed By: #### L500.4050 #### [facility] [address] [place], [address] URINE DRUG SCREEN Collected: 02/11/2018 Status: F Source: [place] ([place]) 5:20 PM [facility] REPOSITORY Order Comment: List of Drugs Taken or Suspected? UNK TYPE CODE TESTS RESULT OUT OF RANGE REFERENCE UNITS LAB L505.0075 TO BE Normal CONFIRMED Result Comment: CONFIRMATORY TESTING FOR ALL POSITIVE URINE DRUG SCREEN RESULTS WILL ONLY BE SENT OUT UPON PHYSICIAN ORDER. [place] Urine Drug Screen methods provide only preliminary analytical test results. A more specific alternate chemical method must be used in order to obtain a confirmed analytical result. Gas chromatography/mass spectrometery (GC/MS) is the preferred confirmatory method. Clinical consideration and professional judgement should be applied to any drug of abuse test result, particularly when preliminary positive results are used. URINE TCA TESTING MUST BE ORDERED SEPARATELY. USE TEST MNEMONIC: [facility] LAB L505.5005 VISTA UDS PH 6 Normal LAB L505.5015 <1000 ng/mL AMPHETAMINES Normal NEGATIVE LAB L505.5025 < 200 ng/mL BARBITIURATES Normal NEGATIVE LAB L505.5035 < 200 High ng/mL BENZODIAZIPINE POSITIVE LAB L505.5045 < 300 ng/mL COCAINE Normal NEGATIVE LAB L505.5055 < 500 ng/mL ECSTACY Normal NEGATIVE LAB L505.5065 < 300 ng/mL METHADONE Normal NEGATIVE LAB L505.5075 < 300 ng/mL OPIATES Normal NEGATIVE LAB L505.5085 < 25 ng/mL PCP Normal NEGATIVE LAB L505.5095 < 50 ng/mL THC Normal NEGATIVE Performed By: #### L505.5000 #### [facility] [address] [facility] [place], [address] EMERGENCY DEPARTMENT Observed: 02/11/2018 Status: F Source: [facility] SUMMARY 3:53 PM [facility] REPOSITORY [facility] Medical Records Department [address] [place] [address] Emergency Department Summary 02/11/18 1101 MR#: [id number] Acct: [id number] Name: ORQUIDEA JUÁREZ Rep #: [id number] : 1965 52 From: Thad Hodge MD PCP: Kendell Lyons DO Status: ADM IN - ER Visit Summary Date of Service: 02/11/18 Chief Complaint: Alcohol withdrawal History of Present Illness: The patient is a 52 M with alcohol withdrawal. His last drink was yesterday evening between 8 PM and 10 PM. He has been drinking for 30 or more years. His last sober period was about 5 or 6 months ago. He was clean for about a week. 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 He reports nausea, vomiting, shakes, mind racing, insomnia. Denies any suicidal or homicidal ideation. He does have a history of coronary disease. Denies any chest pain or shortness of breath. Physical Examination: Afebrile. Heart rate 136 and respiratory rate 26. Otherwise vitals normal. Patient is depressed and anxious in appearance. Skin is very mildly diaphoretic. Normal color. No rash. Heart tachycardic but regular. Lungs clear. Abdomen soft. Test Results: EKG, labs, chest x-ray pending. EKG showed sinus rhythm at a rate of 86 with PVCs. Chest x-ray showed no acute findings. Troponin normal. Hemoglobin stable at 17.3. Platelets low at 114. CMP unremarkable except for slightly elevated liver enzymes. Drug screen and alcohol level still pending. Emergency Department Course and Treatment: Patient has a CIWA score of 27. He was treated with fluids and placed on the monitor. He also received Zofran and Ativan. We will perform medical clearance and discuss with the hospitalist about detox. We do have detox beds available, but the patient will have to be admitted through the weekend to be seen on Tuesday. Patient is improved on reevaluation. He did receive an additional dose of Ativan. Patient was discussed with the hospitalist and will be admitted for further care. Treatment Plan: As above Disposition: Admission Impression: 1. Alcohol withdrawal This note was generated with Spotistic dictation software. It may contain incorrect words, spelling, and punctuation that were not noted in review of the chart prior to signing ED Disposition - Plan for ED Patient: Chief Complaint: ETOH Intox Referrals: Kendell Lyons, DO [Primary Care Provider] - What to do if you have Problems For any increased pain, shortness of breath, bleeding, nausea or vomiting, chest pain, or any unexpected problems, contact your Primary Care Provider. Call [facility] ([phone]) or report to the closest Emergency Room. Call 911 if necessary. 02/11/18 1013 <Electronically signed by Thad Hodge MD> Date Thad Hodge MD Cosigner Signature (If Indicated): Date CC: Kendell Lyons DO HISTORY AND PHYSICAL Observed: 02/11/2018 Status: F Source: [facility] EXAM 2:46 PM [facility] REPOSITORY [facility] Medical Records Department [address] [place] [address] History and Physical 02/11/18 1322 MR#: [id number] Acct: [id number] Name: ORQUIDEA JUÁREZ Rep #: [id number] : 1965 52 From: Lisa Palacios MD PCP: Kendell Lyons DO Status: ADM IN Y Location: [place] [address] History of Present Illness Date of Admission: 02/11/18 Chief Complaint: alcohol withdrawal, vomiting The patient is a 52 year old M with a history of alcohol abuse, chronic anxiety and CAD s/p SC and stent placement. He was admitted through the ED with a complaint of vomiting and excessive alcohol intake. Patient he states he usually drinks about 12 drinks every night and last night he drank about 7 drinks. He subsequently started having severe nausea and vomited profusely. Emesis was mainly bilious. He also started having tremors and so decided coming to the hospital to seek help for alcohol withdrawal. In the ED, vitals were significant for tachycardia with heart rate of 136 and tachypnea with respiratory rate of 26. EKG showed sinus tachycardia. Labs showed hb of 17.3 and bilirubin of 1.5, and mildly elevated AST and ALT. He is being admitted to be managed for alcohol withdrawal. [] Past Medical History Past Medical History (Chronic Problems): Chronic Problems (Last Reviewed 01/04/18 @ 16:19 by Socrates Monte MD) 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) BMS-Prox and Distal RCA 12/23/16 Smoking addiction (Chronic) Anxiety (Chronic) Noncompliance (Chronic) Medical History: Medical History (Last Reviewed 01/04/18 @ 16:19 by Socrates Monte MD) 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) I25.119 BMS-Prox and Distal RCA 12/23/16 Smoking addiction (Chronic) F17.200 Anxiety (Chronic) F41.9 Noncompliance (Chronic) Z91.19 STEMI (ST elevation myocardial infarction) (Resolved) 12/23/16 STEMI (ST elevation myocardial infarction) I21.3 12/23/16 Allergies No Known Allergies Allergy (Verified 02/11/18 10:40) Home Medications: Ambulatory Orders Medication Instructions Recorded Surgical History: Surgical History (Last Reviewed 01/04/18 @ 16:19 by Socrates Monte MD) History of coronary artery stent placement (Resolved) Onset Date: 12/23/16 Z95.5 BMS-Prox and Distal RCA 12/23/16 History of left heart catheterization Z98.890 12/23/16- PCI with BM stent to prox RCA AND distal RCA; 01/12/17- patent BM stents; Surgical History: herniorrhaphy Psychiatric History: Anxiety Lives: Alone Smoking Status: Current every day smoker Tobacco Use: Cigarettes Alcohol: Heavy Drugs: None - *Family History Sibling Family History: Family History (Last Reviewed 01/04/18 @ 16:19 by Socrates Monte MD) Father Myocardial infarction, Onset Age: 36 Mother Myocardial infarction Cancer History Items: Heart Disease Maternal Family History: Family History (Last Reviewed 01/04/18 @ 16:19 by Socrates Monte MD) Father Myocardial infarction, Onset Age: 36 Mother Myocardial infarction Cancer History Items: No pertinent history Paternal Family History: Family History (Last Reviewed 01/04/18 @ 16:19 by Socrates Monte MD) Father Myocardial infarction, Onset Age: 36 Mother Myocardial infarction Cancer History Items: No pertinent history Review of Systems Constitutional: Reports: Malaise, Weakness. Denies: Chills, Fever, Weight Change Eyes: Denies: Blurred vision HEENT: Denies: Head Aches, Sinus Congestion, Sinus Drainage Cardiovascular: Denies: Chest Pain, Edema, Light Headedness, Palpitations Respiratory: Denies: Cough, Shortness of breath at rest, Sputum production Gastrointestinal: Reports: Abdominal Pain, Nausea, Vomiting. Denies: Constipation, Diarrhea Genitourinary: Denies: Dysuria Musculoskeletal: Denies: Joint Pain, Joint Tenderness Skin: Denies: Rash, Wounds Neurological: Denies: Numbness, Tingling, Focal weakness Psychiatric: Denies: Anxiety, Depression, Homicidal Ideations, Suicidal Ideations Hematologic/ Lymphatic: Denies: Easy Bruising, Easy Bleeding VTE Information - Inpt Only VTE Present on Admission: No VTE Pharm Prophylaxis ordered?: Yes - Physical Exam General: Alert, Oriented x3, Cooperative, - - looks anxious HEENT: Atraumatic, PERRLA, EOMI, Normocephalic Oral: Dry Mucosa Neck: Supple, No JVD, Negative Carotid Bruits Lungs: Clear to auscultation, Normal air movement, No rhonchi, No wheeze, No rales Cardiovascular: Regular rate, Regular Rhythm, Normal S1, Normal S2, No murmurs Abdomen: Bowel Sounds Present, Soft, No Hepato-splenomegaly, - - RUQ moderate tenderness, with no guarding or rebound tenderness. Horton's sign negative. Extremities: No clubbing, No cyanosis, No edema, Capillary Refill Less than 3 Seconds Skin: No rashes, No breakdown, - - skin appears diffusely erythematous Musculoskeletal: No Tenderness to Palpation of Joints or Extremities Lymphatic: No Cervical, Supraclavicular, or Inguinal Adenopathy Neurological: Cranial nerves II-XII grossly intact, Neuro grossly intact, Motor Exam 5/5 strength throughout Psych/Mental Status: Anxious, Alert and oriented to time, place, person, mood and affect Vital Signs Temp Pulse Resp BP Pulse Ox 98 F 136 H 26 H 122/73 H 99 02/11/18 10:38 02/11/18 10:38 02/11/18 10:38 02/11/18 10:38 02/11/18 10:38 Oxygen Delivery Method Room Air Weight: 188 lb Body Mass Index (BMI) 23.5 Laboratory Tests Past 24 Hrs WBC Cancelled Corrected WBC Cancelled RBC Cancelled Hgb Cancelled Hct Cancelled MCV Cancelled MCH Cancelled WBC 9.4 Corrected WBC RBC 5.53 Assessment/Plan All Active Problems (Last Reviewed 01/04/18 @ 16:19 by Socratse Monte MD) Intermittent palpitations (Acute) Chest pain (Acute) History of coronary artery stent placement (Resolved 12/23/16) STEMI (ST elevation myocardial infarction) (Resolved) 52 y/o male admitted with for alcohol withdrawal 1. Acute alcohol withdrawal * had about 7 drinks yesternight, and only stopped because he started vomiting * has had previous admissions for alcohol withdrawal * alcohol level pending * urine tox pending * admit to Med Surg with telemetry * monitor CIWA score * alcohol withdrawal protocol with librium * 2. ? Alcoholic hepatitis vs pancreatitis * has mild right upper quadrant tenderness; liver enzymes mildly elevated with Total aline of 1.5 (baseline is WNL), and AST/ALT of 128/131/ * AST/ALT ratio doesnt fit the picture of alcoholic hepatitis * will check lipase level- lipase level was only 162, making acute pancreatitis less likely * keep NPO for now until nausea improves and vomiting resolves * hydrate with IVF NS * 3. CAD s/p stents: continue aspirin, plavix and statin 4. Generalised anxiety disorder * on xanax prn. also on Prozac * 5. Hypertension: on metoprolol 25mg daily 6. Thrombocytopenia * platelets are 114. was 191 in December * Likely due to alcohol abuse * will monitor * DVT prophylaxis; heparin Code Visit Inpatient E AND M: 18320 Init Hosp L3 02/11/18 1446 <Electronically signed by Lisa Palacios MD> Date Lisa Palacios MD Cosigner Signature: Date (if applicable) CC: Kendell Lyons DO; Lisa Palacios MD Signed CBC W/DIFF, AUTOMATED Collected: 02/11/2018 Status: F Source: [facility] 12:25 PM [facility] REPOSITORY TYPE CODE TESTS RESULT OUT OF RANGE REFERENCE UNITS LAB L100.1000 4.4-11.0 K/mm3 Normal WBC 9.4 LAB L100.1200 4.6-6.2 M/mm3 Normal RBC 5.53 LAB L100.1300 13.0-16.5 g/dl High HGB 17.3 LAB L100.1400 40-54 % Normal HCT 49.3 LAB L100.1500 80-94 fL Normal MCV 89.2 LAB L100.1600 27.0-32.0 pg Normal MCH 31.3 LAB L100.1700 32-36 g/gl Normal MCHC 35.1 LAB L100.1810 11.6-14.6 % Normal RDW CV 14.0 LAB L100.1820 35.1-43.9 fl High RDW SD 45.8 LAB L100.1900 150-450 K/mm3 Low PLT 114 LAB L100.2000 6.2-12.0 fl Normal MPV 11.4 LAB L100.2100 47-70 % High NEUT% 84.6 LAB L100.2200 19-41 % Low LY% 8.2 LAB L100.2300 0-10 % Normal MONO% 6.9 LAB L100.2400 0-5 % Normal EO% 0.1 LAB L100.2500 0-1 % Normal BASO% 0.0 LAB L100.2550 0.0-0.9 % Normal IM GRAN % 0.200 Result Comment: IG% - Immature Granulocytes (promyelocytes, myelocytes and metamyelocytes) > 1% indicates that a LEFT SHIFT is Present. LAB L100.2620 2.0-7.7 X10 3/uL High Absolute Neut 8.0 LAB L100.2720 0.83-4.51 X10 3/ul Low Absolute Lymph 0.77 Performed By: #### L100.0100 #### [facility] [address] [place], [address] COMPREHENSIVE METABOLIC Collected: 02/11/2018 Status: F Source: [facility] 12:25 PM [facility] REPOSITORY Order Comment: 'TROP' Serial specimen #1, #2, #3, or #4: 1 TYPE CODE TESTS RESULT OUT OF RANGE REFERENCE UNITS LAB L501.0100 74-106 mg/dL Normal GLU 94 Result Comment: Please note revised GLUCOSE reference range effective 2017. LAB L501.1000 7-18 mg/dL Normal BUN 9 LAB L501.1100 0.70-1.30 mg/dL Normal CREAT,SERUM 0.87 Result Comment: The validity of the calculated GFR AND GFRAA in patients over 70 years has not been determined. Clinical correlation is essential. LAB L501.1110 >60 mL/min Normal EST GFR 97 Result Comment: Non- GFR Calc LAB L501.1115 >60 mL/min Normal EST GFR - AA 118 Result Comment: GFR Calc LAB L501.1255 ml/min Normal Estimated CRCL 118.71 LAB L501.1300 10-20 RATIO BUN/CRE Normal 10.3 LAB L501.1500 6.4-8. g/dL 2 T PROT Normal 7.1 LAB L501.1800 3.2-5. g/dL 0 ALB Normal 3.6 LAB L501.1950 2.2-4. g/dL 2 GLOB Normal 3.5 LAB L501.2000 0.9-2. RATIO 4 A/G Normal 1.0 LAB L501.2200 8.5-10 mg/dL Low .1 CA 8.4 LAB L501.4100 15-37 U/L High AST 128 LAB L501.4305 45-117 U/L ALK P Normal 70 LAB L501.4405 16-61 U/L High ALT 131 LAB L501.4600 0.20-1 mg/dL High .00 T BILI 1.50 LAB L501.5300 136-14 mmol/L Low 5 NA 135 LAB L501.5600 3.5-5. mmol/L 1 K Normal 3.8 LAB L501.5900 98-107 mmol/L Low CL 96 LAB L501.6100 21.0-3 mmol/L 2.0 CO2 Normal 27.0 LAB L501.6200 5-15 GAP Normal 12 Performed By: #### L500.4050, L501.4010 #### [facility] [address] [facility] [place], [place], [address] TROPONIN-I Collected: 02/11/2018 Status: F Source: [facility] 12:25 PM [facility] REPOSITORY Order Comment: 'TROP' Serial specimen #1, #2, #3, or #4: 1 TYPE CODE TESTS RESULT OUT OF RANGE REFERENCE UNITS LAB L501.4010 <0.045 ng/mL Normal < 0.015 TROPONIN-I Result Comment: TROPONIN-I EXPECTED VALUES <0.045 Negative 0.045 - 0.590 Consistent with Cardiac Damage > OR = 0.600 Critical Value Not every elevated troponin is indicative of SC. These values should be used with clinical judgement in examining the patient's clinical picture for diagnosis. To establish a diagnosis of SC versus myocardial injury, there must be a demonstrated rise and/or fall in the troponin values, in addition to ischemic symptoms, EKG changes, new regional wall motion abnormality, and/or angiographical evidence. PLEASE NOTE: REFERENCE RANGES EDITED 17 Performed By: #### L500.4050, L501.4010 #### [facility] [address] [place], [address] ALCOHOL, BLOOD Collected: 02/11/2018 Status: F Source: [place] (MEDICAL)-SERUM 12:25 PM [facility] REPOSITORY TYPE CODE TESTS RESULT OUT OF RANGE REFERENCE UNITS LAB L501.9100 mg/dL Normal SERUM < 3.0 ETOH Result Comment: The serum:whole blood ethanol ratio is approximately 1.14 and varies slightly with hematocrit. Medical Alcohol reference interval and critical value in non-tolerant individuals; 50 - 100 Impairment 100 Intoxication 100 - 250 Severe Poisoning 250 - 400 Deep/possible fatal coma Performed By: #### L501.9100 #### [facility] [address] [facility] [place], [address] LIPASE Collected: 02/11/2018 Status: F Source: [place] 12:25 PM [facility] REPOSITORY TYPE CODE TESTS RESULT OUT OF RANGE REFERENCE UNITS LAB L501.2450 73-393 U/L Normal LIPASE 162 Performed By: #### L501.2450 #### [facility] [address] [place], [address] CHEST 1 VIEW Observed: 02/11/2018 Status: F Source: [facility] (PORTABLE) 10:57 AM [facility] REPOSITORY [facility] Imaging Services [address] [place] [address] Chest 1 View (Portable) MR#: [id number] Acct: [id number] Name: ORQUIDEA JUÁREZ Rep #: [id number] : 1965 M 52 From: Srikanth Santamaria DO PCP: Kendell Lyons DO Status: REG ER Study: Chest 1 View (Portable) Date of Exam: 02/11/18 Exam# [id number] Ordering Dr: Thad Hodge MD STUDY: X-RAY CHEST REASON FOR EXAM: Male, 52 years old. Chest pain. TECHNIQUE: Single PA view of the chest. COMPARISON: 31 December 2017 FINDINGS: The lungs are clear and expanded. There is no demonstrated pleural abnormality. Normal size heart. Normal mediastinum and stephen. Normal visualized pulmonary arteries. Normal visualized aortic arch and descending thoracic aorta. Normal visualized thoracic spine. Normal visualized ribs, clavicles, and shoulders. There is no demonstrated abnormality of the visualized soft tissue structures of the upper abdomen. RAD/Chest 1 View (Portable) IMPRESSION: No evidence of acute cardiopulmonary process. Electronically Signed: Srikanth Santamaria DO at 11:19 EST , Service support , CC: Thad Hodge MD; Kendell Lyons DO Arc Cutter: Signed 12 LEAD ELECTROCARDIOGRAM Observed: 02/10/2018 Status: F Source: [place] 2:41 PM [facility] REPOSITORY [facility] Cardiovascular Services [address] [place] [address] 12 Lead EKG 02/08/18 1432 MR#: [id number] Acct: [id number] Name: ORQUIDEA JUÁREZ Rep #: [id number] : 1965 52 From: Gautam Alvarez MD Attending Dr: Status: REG ER Ordering Dr: Thad Hodge MD Date: 02/08/18 Location: ED Sex: M C Admitted: Test Reason : CP Blood Pressure : / mmHG Vent. Rate : 114 BPM Atrial Rate : 114 BPM P-R Int : 162 ms QRS Dur : 076 ms QT Int : 332 ms P-R-T Axes : -02 -21 065 degrees QTc Int : 457 ms Sinus tachycardia Possible Inferior infarct , age undetermined Abnormal ECG Confirmed by ANTONIO VENTURA, GAUTAM ([id number]), videotape editor ASHLEY SHIELDS ([id number]) on 02/10/2018 2:40:52 PM Referred By: CONNOR Confirmed By:GAUTAM ALVAREZ MD 02/10/18 6900 Date Gautam Alvarez MD CC: Thad Hodge MD; Hina Kraft MD; Kendell Lyons DO Signed 12 LEAD ELECTROCARDIOGRAM Observed: 01/06/2018 Status: F Source: [place] 9:20 AM [facility] REPOSITORY [facility] Cardiovascular Services [address] [place] [address] 12 Lead EKG 12/31/17 1308 MR#: [id number] Acct: [id number] Name: ORQUIDEA JUÁREZ Rep #: [id number] : 1965 52 From: Socrates Monte MD Attending Dr: Status: DEP ER Ordering Dr: Thad Hodge MD Date: 12/31/17 Location: ED Sex: M C Admitted: Test Reason : CP Blood Pressure : / mmHG Vent. Rate : 080 BPM Atrial Rate : 080 BPM P-R Int : 164 ms QRS Dur : 088 ms QT Int : 360 ms P-R-T Axes : 011 -15 056 degrees QTc Int : 415 ms Poor data quality, interpretation may be adversely affected Sinus rhythm with Premature atrial complexes Otherwise normal ECG Confirmed by SOCRATES MONTE MD ([id number]), videotape editor MATHEUS CHAMORRO ([id number]) on 01/02/2018 9:30:36 AM Referred By: THOMAS Confirmed By:SOCRATES MONTE MD 01/02/18 0930 Date Socrates Monte MD CC: Thad Hodge MD; Kendell Lyons DO Signed 12 LEAD ELECTROCARDIOGRAM Observed: 01/06/2018 Status: F Source: [place] 9:11 AM [facility] REPOSITORY [facility] Cardiovascular Services [address] [place] [address] 12 Lead EKG 12/26/17 1504 MR#: [id number] Acct: [id number] Name: ORQUIDEA JUÁREZ Rep #: [id number] : 1965 52 From: Socrates Monte MD Attending Dr: Status: DEP ER Ordering Dr: Hina Kraft MD Date: 12/26/17 Location: ED Sex: M C Admitted: Test Reason : DYSRHYTHMIA Blood Pressure : / mmHG Vent. Rate : 085 BPM Atrial Rate : 085 BPM P-R Int : 158 ms QRS Dur : 084 ms QT Int : 362 ms P-R-T Axes : 058 -05 060 degrees QTc Int : 430 ms Normal sinus rhythm Cannot rule out Inferior infarct , age undetermined Abnormal ECG Confirmed by SOCRATES MONTE MD ([id number]), videotape editor ASHLEY SHIELDS ([id number]) on 12/28/2017 11:20:43 AM Referred By: AZAR Confirmed By:SOCRATES MONTE MD 12/28/17 1120 Date Socrates Monte MD CC: Hina Kraft MD; Kendell Lyons DO Signed CARDIOLOGY VISIT Observed: 01/04/2018 Status: F Source: [facility] REPORT 4:25 PM [facility] REPOSITORY [facility] [address] [place] [address] OFFICE VISIT Date of Service: 01/04/18 MR#: [id number] Acct: [id number] Name: ORQUIDEA JUÁREZ Rep #: [id number] : 1965 Provider: Socrates Monte MD Age/Sex: 52/M Location: [facility] Status: Signed HPI HPI Chief Complaint: Follow up Details: ORQUIDEA JUÁREZ, is a 52 M who presents to the office today for a follow-up visit. He is a gentleman with a history of coronary artery disease status post drug-eluting stent to the proximal and distal right coronary artery December 2016. He also has a history of tobacco abuse. Unfortunately he has discontinued all his medications. He presented with some palpitations but denies any chest pain. He has had no neck arm or jaw discomfort suggest angina no dizziness or diaphoresis no near syncope or syncope. He has reduce the amount of tobacco he uses but still continues with a fair amount. He was in the emergency room in December 2017 with a chest discomfort. His symptoms were thought to be atypical for acute coronary syndrome and he was evaluated and discharged. His physical exam today demonstrated clear lung landa regular rate and rhythm and no pedal edema. Intake Vital Signs01/04/18 Height 6 ft 3 in Intake Visit Reasons: ER 11-19 for palps, overdue for f/up Allergies No Known Allergies Allergy (Verified 12/31/17 13:04) Medications ALPRAZolam [Xanax] 1 - 2 mg PO QHS PRN 05/27/17 [History Confirmed 01/04/18] Fluoxetine [Prozac] 20 mg PO DAILY 05/27/17 [History Confirmed 01/04/18] Aspirin [Aspirin, Baby] 81 mg PO DAILY@0800 10/03/17 [History Confirmed 01/04/18] atorvastatin 20 mg tablet 20 mg PO DAILY #90 tab 01/04/18 [Rx Confirmed 01/04/18] clopidogrel 75 mg tablet 75 mg PO DAILY #90 tab 01/04/18 [Rx Confirmed 01/04/18] metoprolol succinate ER 25 mg tablet,extended release 24 hr 25 mg PO DAILY #90 tab 01/04/18 [Rx Confirmed 01/04/18] PFSH Medical History 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) Smoking addiction (Chronic) Anxiety (Chronic) Noncompliance (Chronic) STEMI (ST elevation myocardial infarction) (Resolved) STEMI (ST elevation myocardial infarction) (Resolved) Surgical History History of coronary artery stent placement (Resolved 12/23/16) History of left heart catheterization (Chronic) Family History Father Myocardial infarction, Onset Age: 36 Mother Myocardial infarction 60s Cancer Social History Smoking Status: Current every day smoker tobacco type: cigarettes second hand exposure: Yes quit status: considering quitting alcohol intake: current alcohol intake frequency: 0-2 drinks per day Alcohol type: beer substance use type: does not use caffeine: No eating out: 1-3 times/week what type of physical activity do you participate in: none seatbelt use: always do you feel safe at home: Yes ROS Const Const: Positive for other (Patient having racing thoughts at night and night sleeping); negative for fatigue, weakness, difficulty sleeping, frequent falls, excessive sweating or headache(s) Eyes Eyes: Negative for loss of peripheral vision, transient loss of vision, blurry vision, tunnel vision or double vision ENT ENT: Negative for headache(s), dizziness, Nosebleed/epistaxis or balance problems Cardio Palpitations: Yes (fluttering) feels like its: skipping, pounding Edema: None Muscle aches with walking: None Resp Respiratory: Negative for SOB with activity, SOB at rest, SOB orthopnea\SOB lying down, paroxysmal nocturnal dyspnea or Cough GI GI: Negative nausea, heartburn, black,tarry stools or vomiting : Negative for hematuria Musc Musc: Negative for balance problems, muscle aches/ myalgia, muscle weakness or joint pain Skin Skin: Negative non-healing lesions, unusual bruising or rash Neuro Neuro: Negative for weakness, frequent falls, headache(s), blurry vision, double vision, dizziness, lightheadedness, orthostatic symptoms, near syncope, syncope or lack of coordination Kevin Hematologic/Lymphatic: Negative for easy bruising or easy bleeding Endo Endo: Negative for fatigue, excessive sweating or increased thirst/drinking Psych Psych: Negative for anxiety or depression Allergy Allergy/Immunology: Negative for hives, Negative for rash Cardiology Exam Const Appearance: cooperative, healthy appearing, well developed, well groomed and no acute distress Nutritional Appearance: well nourished and average body habitus Orientation: alert, awake and oriented x3 Head Head: normal to inspection, normocephalic and atraumatic Ears: hearing grossly normal bilaterally and external ears normal Nose: external nose normal, nasal mucous membranes and turbinates normal, nares normal, septum normal, no nasal discharge Face and Sinus: face symmetric Mouth: oral mucosae normal, tongue normal, oropharynx normal and moist mucous membranes Teeth and gingiva: dentition normal Throat: posterior oropharynx normal, tonsils normal and uvula midline Eyes General: appearance normal, both eyes and all related structures Eyelids: eyelids normal Conjunctivae: conjunctivae normal Pupils: PERRL, normal by confrontation and accommodation normal EOM: EOM intact bilaterally Neck Neck: normal visual inspection, trachea midline and no JVD JVD: +5 Carotids: normal carotid upstroke and bounding pulses Chest Chest inspection: normal inspection of the chest, symmetric chest movement and normal respiratory effort Auscultation: Bilateral: Clear to Auscultation Cardio Palpation: normal PMI Rate: regular rate Rhythm: regular rhythm Heart sounds: S1 normal, S2 normal and normal, physiologic split S2; negative rub, gallop or murmur GI GI: normal to inspection, soft, no hepatosplenomegaly and bowel sounds present Neuro General: alert, awake, oriented x3, no focal sensory deficit, gait normal and moves all extremities Skin Skin: no rashes or lesions noted Extremities Pulses: Normal: Right Femoral Pulse, Left Femoral Pulse, Right Dorsalis Pedis Pulse, Left Dorsalis Pedis Pulse, Right Posterior Tibial Pulse, Left Posterior Tibial Pulse, Right Radial Pulse, Left Radial Pulse Lower Extremity Edema: None: Bilateral Musculoskel Musculoskeletal: No joint tenderness Psych Psychological: normal affect Assessment AND Plan 1. 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 His presentation in the emergency room was atypical for coronary artery disease his troponin was normal and my recommendation at this time will be to start back on his medications with his statin aspirin and clopidogrel. He did undergo stress testing in March 2017 which was negative for ischemia. An echocardiogram had demonstrated mildly reduced ejection fraction of 45-50%. 2. Intermittent palpitations R00.2 Plan He has a history of intermittent palpitations and I would like him to start back on a beta-luis with Toprol-XL 25 mg a day. This would also be useful as he has a history of alcohol use. 3. Smoking addiction F17.200 Plan He continues unfortunately to use tobacco products though he has reduce the amount of tobacco consumption. He has been encouraged to continue the above. Thank you for allowing me to part spent in his care. Plan Detail Other Medications New: Refilled: Follow Up 6 Months (r) Coding Level of Care Code Off vis,est,level 4 Diagnoses Atherosclerosis of coronary artery of sioux heart with angina pectoris I25.119 Intermittent palpitations R00.2 Smoking addiction F17.200 Coding Level of Care Code Off vis,est,level 4 Diagnoses Atherosclerosis of coronary artery of sioux heart with angina pectoris I25.119 Intermittent palpitations R00.2 Smoking addiction F17.200 01/04/18 1625 <Electronically signed by Socrates Monte MD> Date Socrates Monte MD Cosigner Signature: Date (if applicable) CC: Kendell Lyons DO DISCHARGE INSTRUCTION Observed: 12/31/2017 Status: F Source: [place] 3:36 PM [facility] REPOSITORY [facility] Medical Records Department [address] [place] [address] Discharge Instruction 12/31/17 1531 MR#: [id number] Acct: [id number] Name: ORQUIDEA JUÁREZ Rep #: [id number] : 1965 52 From: Thad Hodge MD PCP: Kendell Lyons DO Status: REG ER ED Disposition - Plan for ED Patient: Chief Complaint: Chest Pain Instructions: ED Chest Pain Atypical Unkn Cause Referrals: Kendell Lyons, [Primary Care Provider] - What to do if you have Problems For any increased pain, shortness of breath, bleeding, nausea or vomiting, chest pain, or any unexpected problems, contact your Primary Care Provider. Call [facility] ([phone]) or report to the closest Emergency Room. Call 911 if necessary. 12/31/171535 <Electronically signed by Thad Hodge MD> Date Thad Hodge MD Cosigner Signature (If Indicated): Date CC: Kendell Lyons DO EMERGENCY DEPARTMENT Observed: 12/31/2017 Status: F Source: [place] SUMMARY 3:36 PM [facility] REPOSITORY [facility] Medical Records Department [address] [place] [address] Emergency Department Summary 12/31/17 1527 MR#: [id number] Acct: [id number] Name: ORQUIDEA JUÁREZ Rep #: [id number] : 1965 52 From: Thad Hodge MD PCP: Kendell Lyons DO Status: REG ER - ER Visit Summary Date of Service: 12/31/17 Chief Complaint: Chest pain History of Present Illness: The patient is a 52 M with chest pain for 1.5 hours prior to arrival. He describes this as his heart skipping beats and palpitations. He had similar symptoms in the past with an SC. This was about a year ago. Several months ago, he had a normal stress test. About 9 months ago, he had a cardiac catheterization that showed patent vessels and stents. Patient has no other associated symptoms like shortness of breath, nausea, vomiting, lightheadedness, dizziness, or diaphoresis. He does drink daily and had 7 or 8 beers prior to arrival today. He said he is compliant with his aspirin and Plavix. No other new or associated symptoms. Physical Examination: Afebrile and vital signs unremarkable. Patient alert and oriented. No acute distress. Heart regular rate and rhythm. Lungs clear. Abdomen soft. Pulses normal. Calves soft and supple. Skin without diaphoresis or pallor. Test Results: EKG showed sinus rhythm at a rate of 80. No sign of acute ischemia or infarction pattern. He does have PACs. Hemoglobin 17.7, sodium 134, chloride 97, glucose 73, troponin normal. Alcohol level was 420. Drug screen was pending. Emergency Department Course and Treatment: Patient treated with aspirin and placed on a monitor while awaiting results. He had no further chest pain or new or worsening complaints. His workup was all fairly unremarkable. Chest x-ray official read is pending and drug screen is pending. I discussed treatment options with the patient. His symptoms are very atypical for ACS. His workup here is unremarkable, but I advised him that the only way to rule out ACS would require admission. He says he does not want to be admitted. Risks were discussed. The patient has been using alcohol, but he is alert and oriented. He is able to discuss his cardiac history in a very detailed manner. He feels well and does not want to stay for stress testing. He would like to follow-up as an outpatient. Patient tells me that if we do not discharge him, he is going to leave anyway. There is no indication to restrain him against his will, sedate him, or redirect him any further at this point. I advised him that he may return at any time if he has any new or worsening issues. Treatment Plan: As above Disposition: Discharge Impression: 1. Palpitations This note was generated with Spotistic dictation software. It may contain incorrect words, spelling, and punctuation that were not noted in review of the chart prior to signing ED Disposition - Plan for ED Patient: Chief Complaint: Chest Pain Referrals: Kendell Lyons, [Primary Care Provider] - What to do if you have Problems For any increased pain, shortness of breath, bleeding, nausea or vomiting, chest pain, or any unexpected problems, contact your Primary Care Provider. Call [facility] ([phone]) or report to the closest Emergency Room. Call 911 if necessary. 12/31/17 1536 <Electronically signed by Thad Hodge MD> Date Thad Hodge MD Cosigner Signature (If Indicated): Date CC: Kendell Lyons DO CHEST 1 VIEW Observed: 12/31/2017 Status: F Source: TABOR (PORTABLE) 2:43 PM [facility] REPOSITORY [facility] Imaging Services [address] [place] [address] Chest 1 View (Portable) MR#: [id number] Acct: [id number] Name: MARQUITAORQUIDEA T Rep #: [id number] : 1965 52 From: Srikanth Santamaria DO PCP: Kendell Lyons DO Status: DEP ER Study: Chest 1 View (Portable) Date of Exam: 12/31/17 Exam# [id number] Ordering Dr: Thad Hodge MD STUDY: X-RAY CHEST REASON FOR EXAM: Male, 52 years old. Chest pain. TECHNIQUE: Single AP portable view of the chest. COMPARISON: None. FINDINGS: The lungs are clear and expanded. There is no demonstrated pleural abnormality. Normal size heart. Normal mediastinum and stephen. Normal visualized pulmonary arteries. Normal visualized aortic arch and descending thoracic aorta. Normal visualized thoracic spine. Normal visualized ribs, clavicles, and shoulders. There is no demonstrated abnormality of the visualized soft tissue structures of the upper abdomen. RAD/Chest 1 View (Portable) IMPRESSION: No evidence of acute cardiopulmonary process. Electronically Signed: Srikanth Santamaria DO at 15:54 EST , Service support , CC: Thad Hodge MD; Kendell Lyons DO Arc Cutter: Signed URINE DRUG SCREEN Collected: 12/31/2017 Status: P Source: [place] (Elevate ResearchTA) 2:25 PM [facility] REPOSITORY TYPE CODE TESTS RESULT OUT OF RANGE REFERENCE UNITS LAB L505.0075 TO BE Normal CONFIRMED Result Comment: CONFIRMATORY TESTING FOR ALL POSITIVE URINE DRUG SCREEN RESULTS WILL ONLY BE SENT OUT UPON PHYSICIAN ORDER. VISTA Urine Drug Screen methods provide only preliminary analytical test results. A more specific alternate chemical method must be used in order to obtain a confirmed analytical result. Gas chromatography/mass spectrometery (GC/MS) is the preferred confirmatory method. Clinical consideration and professional judgement should be applied to any drug of abuse test result, particularly when preliminary positive results are used. URINE TCA TESTING MUST BE ORDERED SEPARATELY. USE TEST MNEMONIC: UTCA Performed By: #### L505.5000 #### [facility] [address] [place], [address] ALCOHOL, BLOOD Collected: 12/31/2017 Status: F Source: [place] (MEDICAL)-SERUM 1:14 PM [facility] REPOSITORY TYPE CODE TESTS RESULT OUT OF RANGE REFERENCE UNITS LAB L501.9100 mg/dL High alert SERUM 420.0 ETOH Result Comment: Critical Result(s) Called at: 13:58:26 12/31/2017 by: Reinier CAST (RN) ER. The serum:whole blood ethanol ratio is approximately 1.14 and varies slightly with hematocrit. Medical Alcohol reference interval and critical value in non-tolerant individuals; 50 - 100 Impairment 100 Intoxication 100 - 250 Severe Poisoning 250 - 400 Deep/possible fatal coma Performed By: #### L501.9100 #### [facility] [place], [address] CBC W/DIFF, AUTOMATED Collected: 12/31/2017 Status: F Source: [place] 1:14 PM [facility] REPOSITORY TYPE CODE TESTS RESULT OUT OF RANGE REFERENCE UNITS LAB L100.1000 4.4-11.0 K/mm3 Normal WBC 7.7 LAB L100.1200 4.6-6.2 M/mm3 Normal RBC 5.34 LAB L100.1300 13.0-16.5 g/dl High HGB 17.7 LAB L100.1400 40-54 % Normal HCT 51.2 LAB L100.1500 80-94 fL High MCV 95.9 LAB L100.1600 27.0-32.0 pg High MCH 33.1 LAB L100.1700 32-36 g/gl Normal MCHC 34.6 LAB L100.1810 11.6-14.6 % Normal RDW CV 13.6 LAB L100.1820 35.1-43.9 fl High RDW SD 47.5 LAB L100.1900 150-450 K/mm3 Normal PLT 191 LAB L100.2000 6.2-12.0 fl Normal MPV 9.8 LAB L100.2100 47-70 % Normal NEUT% 62.1 LAB L100.2200 19-41 % Normal LY% 27.9 LAB L100.2300 0-10 % Normal MONO% 8.2 LAB L100.2400 0-5 % Normal EO% 1.4 LAB L100.2500 0-1 % Normal BASO% 0.3 LAB L100.2550 0.0-0.9 % Normal IM GRAN % 0.100 Result Comment: IG% - Immature Granulocytes (promyelocytes, myelocytes and metamyelocytes) > 1% indicates that a LEFT SHIFT is Present. LAB L100.2620 2.0-7.7 X10 3/uL Normal Absolute Neut 4.8 LAB L100.2720 0.83-4.51 X10 3/ul Normal Absolute Lymph 2.14 Performed By: #### L100.0100 #### [facility] [address] [place], [place], [address] BASIC METABOLIC Collected: 12/31/2017 Status: F Source: [place] PROFILE (BMP) 1:14 PM [facility] REPOSITORY TYPE CODE TESTS RESULT OUT OF RANGE REFERENCE UNITS LAB L501.0100 74-106 mg/dL Low GLU 73 Result Comment: Please note revised GLUCOSE reference range effective 2017. LAB L501.1000 7-18 mg/dL Normal BUN 7 LAB L501.1100 0.70-1.30 mg/dL Normal CREAT,SERUM 0.70 Result Comment: The validity of the calculated GFR AND GFRAA in patients over 70 years has not been determined. Clinical correlation is essential. LAB L501.1110 >60 mL/min Normal EST GFR 126 Result Comment: Non- GFR Calc LAB L501.1115 >60 mL/min Normal EST GFR - AA 152 Result Comment: GFR Calc LAB L501.1255 ml/min Normal Estimated CRCL 147.54 LAB L501.1300 10-20 RATIO BUN/CRE Normal 10.0 LAB L501.2200 8.5-10 mg/dL Low .1 CA 8.0 LAB L501.5300 136-14 mmol/L Low 5 NA 134 LAB L501.5600 3.5-5. mmol/L 1 K Normal 4.1 LAB L501.5900 98-107 mmol/L Low CL 97 LAB L501.6100 21.0-3 mmol/L 2.0 CO2 Normal 28.0 LAB L501.6200 5-15 GAP Normal 9 Performed By: #### L500.2500, L501.4010 #### [facility] [address] [place], [address] TROPONIN-I Collected: 12/31/2017 Status: F Source: [place] 1:14 PM [facility] REPOSITORY TYPE CODE TESTS RESULT OUT OF RANGE REFERENCE UNITS LAB L501.4010 <0.045 ng/mL Normal < 0.015 TROPONIN-I Result Comment: TROPONIN-I EXPECTED VALUES <0.045 Negative 0.045 - 0.590 Consistent with Cardiac Damage > OR = 0.600 Critical Value Not every elevated troponin is indicative of SC. These values should be used with clinical judgement in examining the patient's clinical picture for diagnosis. To establish a diagnosis of SC versus myocardial injury, there must be a demonstrated rise and/or fall in the troponin values, in addition to ischemic symptoms, EKG changes, new regional wall motion abnormality, and/or angiographical evidence. PLEASE NOTE: REFERENCE RANGES EDITED 17 Performed By: #### L500.2500, L501.4010 #### [facility] [address] [place], [address] EMERGENCY DEPARTMENT Observed: 12/26/2017 Status: F Source: TABOR SUMMARY 9:38 PM [facility] REPOSITORY [facility] Medical Records Department [address] [place] [address] Emergency Department Summary 12/26/17 1510 MR#: [id number] Acct: [id number] Name: ORQUIDEA JUÁREZ Rep #: [id number] : 1965 52 From: Hina Kraft MD PCP: Kendell Lyons DO Status: DEP ER - ER Visit Summary Date of Service: 12/26/17 Chief Complaint: Palpitations History of Present Illness: The patient is a 52 M with episodes of palpitations of the past couple of days. Patient states he feels like his heart starts racing. Symptoms last for couple of minutes and then resolved. He does report some shortness of breath with this but denies near syncope. Patient does have history of cardiac disease with prior SC. He has 2 cardiac stents. He denies significant chest pain during episodes. Patient does report drinking 5 beers today. He states he drinks 3 or 4 days a week. Physical Examination: Vital signs unremarkable. Heart rate is 90. Patient sitting upright in bed no acute distress. He is alert and talkative. Head neck examination is unremarkable. Heart is regular rate and rhythm. Lung sounds are clear. Abdomen is soft and nontender. Extremity examination reveals strong distal pulses. Test Results: EKG is sinus 85 with no sign of acute ischemia. Portable chest x-ray shows hyperinflation. CBC is significant only for hemoglobin concentrated at 17.8. Chemistry studies, LFTs, and troponin are normal. Magnesium is also normal. Emergency Department Course and Treatment: Patient was given IV fluids. He has had no arrhythmias noted on rn cardiac cath. 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 Monte. Treatment Plan: [] Disposition: Discharge Impression: Palpitations This note was generated with Spotistic dictation software. It may contain incorrect words, spelling, and punctuation that were not noted in review of the chart prior to signing ED Disposition - Plan for ED Patient: Chief Complaint: Palpitations Referrals: Kendell Lyons DO [Primary Care Provider] - What to do if you have Problems For any increased pain, shortness of breath, bleeding, nausea or vomiting, chest pain, or any unexpected problems, contact your Primary Care Provider. Call [facility] ([phone]) or report to the closest Emergency Room. Call 911 if necessary. 12/26/172137 <Electronically signed by Hina Kraft MD> Date Hina Kraft MD Cosigner Signature (If Indicated): Date CC: Kendell Lyons DO DISCHARGE INSTRUCTION Observed: 12/26/2017 Status: F Source: [place] 4:10 PM [facility] REPOSITORY [facility] Medical Records Department [address] [place] [address] Discharge Instruction 12/26/17 1609 MR#: [id number] Acct: [id number] Name: ORQUIDEA JUÁREZ Rep #: [id number] : 1965 52 From: Hina Kraft MD PCP: Kendell Lyons DO Status: REG ER ED Disposition - Plan for ED Patient: Disposition: Home or Assisted Living Chief Complaint: Palpitations Instructions: ED Palpitations Referrals: Socrates Monte MD [STAFF PHYSICIAN] - As soon as possible What to do if you have Problems For any increased pain, shortness of breath, bleeding, nausea or vomiting, chest pain, or any unexpected problems, contact your Primary Care Provider. Call [facility] ([phone]) or report to the closest Emergency Room. Call 911 if necessary. 12/26/17 1610 <Electronically signed by Hina Kraft MD> Date Hina Kraft MD Cosigner Signature (If Indicated): Date CC: Kendell Lyons DO CBC W/DIFF, AUTOMATED Collected: 12/26/2017 Status: F Source: [place] 3:19 PM [facility] REPOSITORY TYPE CODE TESTS RESULT OUT OF RANGE REFERENCE UNITS LAB L100.1000 4.4-11.0 K/mm3 Normal WBC 7.7 LAB L100.1200 4.6-6.2 M/mm3 Normal RBC 5.38 LAB L100.1300 13.0-16.5 g/dl High HGB 17.8 LAB L100.1400 40-54 % Normal HCT 53.4 LAB L100.1500 80-94 fL High MCV 99.3 LAB L100.1600 27.0-32.0 pg High MCH 33.1 LAB L100.1700 32-36 g/gl Normal MCHC 33.3 LAB L100.1810 11.6-14.6 % Normal RDW CV 14.3 LAB L100.1820 35.1-43.9 fl High RDW SD 51.6 LAB L100.1900 150-450 K/mm3 Normal PLT 189 LAB L100.2000 6.2-12.0 fl Normal MPV 9.9 LAB L100.2100 47-70 % Normal NEUT% 64.7 LAB L100.2200 19-41 % Normal LY% 25.9 LAB L100.2300 0-10 % Normal MONO% 7.4 LAB L100.2400 0-5 % Normal EO% 1.4 LAB L100.2500 0-1 % Normal BASO% 0.3 LAB L100.2550 0.0-0.9 % Normal IM GRAN % 0.300 Result Comment: IG% - Immature Granulocytes (promyelocytes, myelocytes and metamyelocytes) > 1% indicates that a LEFT SHIFT is Present. LAB L100.2620 2.0-7.7 X10 3/uL Normal Absolute Neut 5.0 LAB L100.2720 0.83-4.51 X10 3/ul Normal Absolute Lymph 1.99 Performed By: #### L100.0100 #### [facility] [address] [facility] [place], [place], [address] BASIC METABOLIC Collected: 12/26/2017 Status: F Source: [place] PROFILE (BMP) 3:19 PM [facility] REPOSITORY TYPE CODE TESTS RESULT OUT OF RANGE REFERENCE UNITS LAB L501.0100 74-106 mg/dL Normal GLU 83 Result Comment: Please note revised GLUCOSE reference range effective 2017. LAB L501.1000 7-18 mg/dL Low BUN 5 LAB L501.1100 0.70-1.30 mg/dL Normal CREAT,SERUM 0.75 Result Comment: The validity of the calculated GFR AND GFRAA in patients over 70 years has not been determined. Clinical correlation is essential. LAB L501.1110 >60 mL/min Normal EST GFR 116 Result Comment: Non- GFR Calc LAB L501.1115 >60 mL/min Normal EST GFR - AA 140 Result Comment: GFR Calc LAB L501.1255 ml/min Normal Estimated CRCL 137.70 LAB L501.1300 10-20 RATIO Low BUN/CRE 6.6 LAB L501.2200 8.5-10 mg/dL Low .1 CA 8.2 LAB L501.5300 136-14 mmol/L 5 NA Normal 141 LAB L501.5600 3.5-5. mmol/L 1 K Normal 4.2 LAB L501.5900 98-107 mmol/L CL Normal 104 LAB L501.6100 21.0-3 mmol/L 2.0 CO2 Normal 31.0 LAB L501.6200 5-15 GAP Normal 6 Performed By: #### L500.2500, L500.3400, L501.4010, L501.5200 #### [facility] [address] [facility] [place], [address] LIVER PROFILE Collected: 12/26/2017 Status: F Source: TABOR 3:19 PM [facility] REPOSITORY TYPE CODE TESTS RESULT OUT OF RANGE REFERENCE UNITS LAB L501.1500 6.4-8.2 g/dL Normal T PROT 7.3 LAB L501.1800 3.2-5.0 g/dL Normal ALB 3.4 LAB L501.1950 2.2-4.2 g/dL Normal GLOB 3.9 LAB L501.4100 15-37 U/L Normal AST 27 LAB L501.4305 45-117 U/L Normal ALK P 76 LAB L501.4405 16-61 U/L Normal ALT 29 LAB L501.4600 0.20-1.00 mg/dL Normal T BILI 0.30 LAB L501.4700 0.00-0.30 mg/dL Normal D BILI 0.13 Performed By: #### L500.2500, L500.3400, L501.4010, L501.5200 #### [facility] [address] [place], [address] TROPONIN-I Collected: 12/26/2017 Status: F Source: TAB[place] 3:19 [facility]POSIT[facility] TYPE CODE TESTS RESULT OUT OF RANGE REFERENCE UNITS LAB L501.4010 <0.045 ng/mL Normal < 0.015 TROPONIN-I Result Comment: TROPONIN-I EXPECTED VALUES <0.045 Negative 0.045 - 0.590 Consistent with Cardiac Damage > OR = 0.600 Critical Value Not every elevated troponin is indicative of SC. These values should be used with clinical judgement in examining the patient's clinical picture for diagnosis. To establish a diagnosis of SC versus myocardial injury, there must be a demonstrated rise and/or fall in the troponin values, in addition to ischemic symptoms, EKG changes, new regional wall motion abnormality, and/or angiographical evidence. PLEASE NOTE: REFERENCE RANGES EDITED 17 Performed By: #### L500.2500, L500.3400, L501.4010, L501.5200 #### [facility] [address] [facility] [place], [address] MAGNESIUM Collected: 12/26/2017 Status: F Source: TABOR 3:19 PM [facility] REPOSITORY TYPE CODE TESTS RESULT OUT OF RANGE REFERENCE UNITS LAB L501.5200 1.6-2.6 mg/dL Normal MG 1.8 Performed By: #### L500.2500, L500.3400, L501.4010, L501.5200 #### [facility] [address] [place], [address] CHEST 1 VIEW Observed: 12/26/2017 Status: F Source: TABOR (PORTABLE) 3:04 PM [facility] REPOSITORY [facility] Imaging Services [address] [place] [address] Chest 1 View (Portable) MR#: [id number] Acct: [id number] Name: ORQUIDEA JUÁREZ Rep #: [id number] : 1965 M 52 From: Tanner Jiménez MD PCP: Kendell Lyons DO Status: PRE ER Study: Chest 1 View (Portable) Date of Exam: 12/26/17 Exam# [id number] Ordering Dr: Hina Kraft MD STUDY: X-RAY CHEST REASON FOR EXAM: Male, 52 years old. Chest pain. TECHNIQUE: Single AP portable view of the chest. COMPARISON: Comparison is made with prior study dated March 30, 2017. FINDINGS: EKG electrodes are seen. Hyperinflation. The lungs are clear. There is no demonstrated pleural abnormality. Normal size heart. Normal mediastinum and stephen. Normal visualized pulmonary arteries. Normal visualized aortic arch and descending thoracic aorta. Normal visualized thoracic spine. Normal visualized ribs, clavicles, and shoulders. There is no demonstrated abnormality of the visualized soft tissue structures of the upper abdomen. RAD/Chest 1 View (Portable) IMPRESSION: Hyperinflation. Electronically Signed: Tanner Jiménez MD at 15:25 EST Tel [phone], Service support , CC: Hina Kraft MD; Kendell Lyons DO Arc Cutter: Signed EMERGENCY DEPARTMENT Observed: 12/07/2017 Status: F Source: TABOR SUMMARY 1:59 PM [facility] REPOSITORY [facility] Medical Records Department [address] [place] [address] Emergency Department Summary 12/07/17 1351 MR#: [id number] Acct: [id number] Name: ORQUIDEA JUÁREZ Rep #: [id number] : 1965 52 From: Aiden Gonzalez MD PCP: Kendell Lyons DO Status: REG ER - ER Visit Summary Date of Service: 12/07/17 Chief Complaint: Severe back pain with radiation to left buttocks and posteriorly to plantar surface of left foot. History of Present Illness: The patient is a 52 M who has history of back problems. He presents because of bruising and severe back pain. He complains of weakness in his foot. He denies bowel or bladder dysfunction. He denies saddle paresthesia or anesthesia. He he denies weakness in his quadricep muscles going up or down steps. He states his left foot flops sometimes. He prefers to stand versus sitting. He denies fever, chills or night sweats. He denies weight gain or weight loss. He is on Plavix and reports bruising easily. He denies hemoptysis, hematuria, melena or hematochezia. He denies nausea or vomiting. Please read written note for complete detail Physical Examination: Vital signs noted and normal. Head is atraumatic normocephalic. Pupils are equal round reactive. Extraocular muscles are intact. TMs are pearly white with landmarks noted. Nares patent with no drainage. Posterior pharynx without erythema or exudate. Uvula is midline. There is no dysphonia or dysphasia. Trachea is midline. There is no stridor with auscultation of the neck. Heart is regular without murmur, gallop or rub. S1 and S2 are normal. Lungs are clear to auscultation with good movement of air bilaterally. Abdomen soft nontender normal bowel sounds. Patient has multiple back and abdominal bruises. There is no pain palpation of the pelvis. He has multiple hematoma/bruises of the right and left lower extremity. Normal perianal sensation. Straight leg test is equivocal on the right. He complains of pain at 30 degrees on the left. Negative crossover test. Patella and ankle reflex are 1+. DP and PT pulses are 2+ and symmetric. Negative clonus or Babinski sign. Gait was observed and no foot drop was noted. He seemed to have difficulty walking on his toes right side greater than left. He was able to walk on his heels. Test Results: MRI: L4/L5: Severe right and moderate left foraminal stenosis. L5/S1: Moderate right foraminal stenosis. Multilevel facet arthropathy Emergency Department Course and Treatment: With multiple bruises new neurologic symptoms and severe pain for the past 3 days will obtain MRI to evaluate for epidural/spinal hematoma herniated disc inflammatory process etc. CBC was obtained to evaluate H AND H and platelet count. PT/INR PTT were obtained to assess clotting studies. Treatment Plan: IV was established. He was medicated with 8 mg of morphine and 4 mrem of Zofran. Patient was instructed to follow-up with his primary care physician Dr. Lyons. Patient's findings are on the right even though his symptoms are on the left. At this point no further treatment is warranted other than rest, ice and Tylenol. Disposition: Discharged home to follow-up with Dr. Kendell Lyons Impression: Acute low back pain with radiation to left lower extremity Bruising easily secondary to Plavix This note was generated with Spotistic dictation software. It may contain incorrect words, spelling, and punctuation that were not noted in review of the chart prior to signing ED Disposition - Plan for ED Patient: Disposition: Home or Assisted Living Chief Complaint: Back Instructions: ED Neck Back Pain General, ED Contusion Soft Tissue Referrals: Kendell Lyons, DO [Primary Care Provider] - 3-5 Days if not improving Additional Instructions: Apply ice to back 20-30 minutes at a time 6-8 times a day, avoid activity that causes discomfort, and Tylenol for pain. What to do if you have Problems For any increased pain, shortness of breath, bleeding, nausea or vomiting, chest pain, or any unexpected problems, contact your Primary Care Provider. Call [facility] ([phone]) or report to the closest Emergency Room. Call 911 if necessary. 12/07/17 1363 <Electronically signed by Aiden Gonzalez MD> Date Aiden Gonzalez MD Cosigner Signature (If Indicated): Date CC: Kendell Lyons DO CBC W/DIFF, AUTOMATED Collected: 12/07/2017 Status: F Source: HAROON 11:30 AM [facility] REPOSITORY TYPE CODE TESTS RESULT OUT OF RANGE REFERENCE UNITS LAB L100.1000 4.4-11.0 K/mm3 Low WBC 4.3 LAB L100.1200 4.6-6.2 M/mm3 Normal RBC 4.78 LAB L100.1300 13.0-16.5 g/dl Normal HGB 15.8 LAB L100.1400 40-54 % Normal HCT 47.2 LAB L100.1500 80-94 fL High MCV 98.7 LAB L100.1600 27.0-32.0 pg High MCH 33.1 LAB L100.1700 32-36 g/gl Normal MCHC 33.5 LAB L100.1810 11.6-14.6 % Normal RDW CV 14.0 LAB L100.1820 35.1-43.9 fl High RDW SD 50.2 LAB L100.1900 150-450 K/mm3 Normal PLT 173 LAB L100.2000 6.2-12.0 fl Normal MPV 9.2 LAB L100.2100 47-70 % Normal NEUT% 54.4 LAB L100.2200 19-41 % Normal LY% 31.1 LAB L100.2300 0-10 % Normal MONO% 9.7 LAB L100.2400 0-5 % Normal EO% 4.4 LAB L100.2500 0-1 % Normal BASO% 0.2 LAB L100.2550 0.0-0.9 % Normal IM GRAN % 0.200 Result Comment: IG% - Immature Granulocytes (promyelocytes, myelocytes and metamyelocytes) > 1% indicates that a LEFT SHIFT is Present. LAB L100.2620 2.0-7.7 X10 3/uL Normal Absolute Neut 2.4 LAB L100.2720 0.83-4.51 X10 3/ul Normal Absolute Lymph 1.35 Performed By: #### L100.0100 #### [facility] [address] [facility] [place], [address] PROTHROMBIN TIME W/INR Collected: 12/07/2017 Status: F Source: TABOR 11:30 AM [facility] REPOSITORY TYPE CODE TESTS RESULT OUT OF RANGE REFERENCE UNITS LAB L300.4150 11.7-14.9 SECONDS Normal PROTIME 13.1 LAB L300.4200 Normal INR 1.0 Performed By: #### L300.3900, L300.4310 #### [facility] [address] [place], [address] PARTIAL THROMBOPLAST Collected: 12/07/2017 Status: F Source: TABOR TIME 11:30 AM [facility] REPOSITORY TYPE CODE TESTS RESULT OUT OF RANGE REFERENCE UNITS LAB L300.4310 24.1-36.2 Seconds Normal PTT 26.4 Performed By: #### L300.3900, L300.4310 #### [facility] [address] [facility] [place], [address] SPINE LUMBAR Observed: 12/07/2017 Status: F Source: TABOR (ROUTINE) 11:24 AM [facility] REPOSITORY [facility] Imaging Services [address] [place] [address] Spine Lumbar (Routine) MR#: [id number] Acct: [id number] Name: ORQUIDEA JUÁREZ Rep #: [id number] : 1965 M 52 From: Rajiv Plasencia PCP: Kendell Lyons DO Status: REG ER Study: Spine Lumbar (Routine) Date of Exam: 12/07/17 Exam# [id number] Ordering Dr: Aiden Gonzalez MD STUDY: MRI LUMBAR SPINE WITHOUT CONTRAST REASON FOR EXAM: Male, 52 years old. INJURY X 10 YRS INTERMITTENT PAIN SINCE CONSTANT x3 DAYS L BACK PAIN INTO L POSTERIOR LEG. TECHNIQUE: Standardized fat and water weighted pulse sequences were obtained in the sagittal and axial planes. COMPARISON: None FINDINGS: T12-L1: There is mild disc space narrowing and endplate spondylosis. There is no significant disc herniation, central canal or foraminal stenosis. There is straightening of the normal lumbar lordosis. There is no substantial scoliosis. Normal conus medullaris that terminates at the L1 L1-2: There is moderate disc space narrowing and endplates spondylosis. There is mild disc bulge without significant central canal or foraminal stenosis. L2-3: There is moderate disc space narrowing and endplates spondylosis. There is mild disc bulge without significant central canal or foraminal stenosis. There is moderate bilateral facet arthropathy L3-4: There is mild disc space narrowing and endplate spondylosis. There is no significant disc herniation, central canal or foraminal stenosis. Endplates there is a minimal disc bulge and moderate facet adenopathy without significant central canal or foraminal stenosis. L4-5: There is mild disc space narrowing and endplates spondylosis. There is mild disc bulge and facet arthropathy with mild central canal stenosis. There is severe right and moderate left foraminal stenosis. L5-S1: There is minimal disc space narrowing and endplate spondylosis. There is no significant disc herniation or central canal stenosis. There is severe facet arthropathy with moderate right foraminal stenosis. There is mild left foraminal stenosis. Normal visualized sacral ala. Normal visualized paraspinous soft tissue structures. MRI/Spine Lumbar (Routine) IMPRESSION: L4/L5: Severe right and moderate left foraminal stenosis. L5/S1: Moderate right foraminal stenosis. Multilevel facet arthropathy Electronically Signed: Rajiv Plasencia MD at 13:46 EDT Tel , Service support , CC: Kendell Gonzalez MD Arc Cutter: Signed EMERGENCY DEPARTMENT Observed: 10/29/2017 Status: F Source: TABOR SUMMARY 2:14 AM [facility] REPOSITORY [facility] Medical Records Department [address] [place] [address] [place] [address] Emergency Department Summary 10/11/17 0024 MR#: [id number] Acct: [id number] Name: ORQUIDEA JUÁREZ Rep #: [id number] : 1965 52 From: Alfredo Kumar MD PCP: Kendell Lyons DO Status: DEP ER - ER Visit Summary Date of Service: 10/11/17 Chief Complaint: [] Right lower dental pain History of Present Illness: The patient is a 52 M [] complaining of right lower dental pain toothache for last 2 days gradual onset continuous. He has been using Aleve and Orajel. He is seeing [facility] tomorrow. Did drink 4 beers today but does have a history of alcohol usage. Physical Examination: [] Vital signs reviewed General: Well-nourished well-developed Head: Normocephalic atraumatic Eyes: Pupils equal round and reactive to light extraocular movements intact ENT: TMs clear no hemotympanum no trauma Dental: Right lower second premolar has a large cavity with a medial gumline periapical abscess. It measures 1/2 cm. It is soft. Neck: Nontender full range of motion Cardiovascular: Regular rate rhythm no murmurs normal S1-S2 Respiratory: No distress clear to auscultation bilaterally chest nontender Abdomen: Soft nontender nondistended normal bowel sounds no masses Back: Nontender no CVA tenderness Extremities: Nontender active range of motion 4 extremities no trauma Skin: Normal color no trauma Neuro alert oriented cranial nerves II through XII intact normal strength sensation reflexes Test Results: [] Emergency Department Course and Treatment: [] Since started on amoxicillin. I will hold off on doing an incision and drainage of this abscess. He will wait till tomorrow morning to see his dentist for definitive management. Given an injection of morphine to help with this pain tonight. Will follow-up. Will be given a prescription for amoxicillin Treatment Plan: [] Disposition: [] Impression: [] Right premolar periapical abscess This note was generated with Spotistic dictation software. It may contain incorrect words, spelling, and punctuation that were not noted in review of the chart prior to signing ED Disposition - Plan for ED Patient: Chief Complaint: Dental Referrals: Kendell Lyons DO [Primary Care Provider] - What to do if you have Problems For any increased pain, shortness of breath, bleeding, nausea or vomiting, chest pain, or any unexpected problems, contact your Primary Care Provider. Call [facility] ([phone]) or report to the closest Emergency Room. Call 911 if necessary. 10/29/17213 <Electronically signed by Alfredo Kumar MD> Date Alfredo Kumar MD Cosigner Signature (If Indicated): Date CC: Kendell Lyons DO DISCHARGE INSTRUCTION Observed: 10/29/2017 Status: F Source: TABOR 2:14 AM [facility] REPOSITORY [facility] Medical Records Department [address] [place] [address] Discharge Instruction 10/11/17 0025 MR#: [id number] Acct: [id number] Name: ORQUIDEA JUÁREZ Rep #: [id number] : 1965 52 From: Alfredo Kumar MD PCP: Kendell Lyons DO Status: DEP ER ED Disposition - Plan for ED Patient: Disposition: Home or Assisted Living Chief Complaint: Dental Instructions: Dental Abscess Prescriptions: Amoxicillin 500 mg PO TID #30 tab Referrals: Kendell Loyns DO [Primary Care Provider] - Additional Instructions: Please follow with your dentist as scheduled tomorrow What to do if you have Problems For any increased pain, shortness of breath, bleeding, nausea or vomiting, chest pain, or any unexpected problems, contact your Primary Care Provider. Call [facility] ([phone]) or report to the closest Emergency Room. Call 911 if necessary. 10/29/17213 <Electronically signed by Alfredo Kumar MD> Date Alfredo Kumar MD Cosigner Signature (If Indicated): Date CC: Kendell Lyons DO EMERGENCY DEPARTMENT Observed: 10/04/2017 Status: F Source: TABOR SUMMARY 12:46 AM [facility] REPOSITORY [facility] Medical Records Department [address] [place] [address] Emergency Department Summary 10/03/172055 MR#: [id number] Acct: [id number] Name: ORQUIDEA JUÁREZ Rep #: [id number] : 1965 52 From: Agustin Abarca MD PCP: Kendell Lyons DO Status: DEP ER - ER Visit Summary Date of Service: 10/03/17 Chief Complaint: Laceration History of Present Illness: The patient is a [address] Lyons and Dr. Monte. He reports that he reached into his silverware door and cut his left thumb on a knife. He has a sharp pain that is mild. Is worsened by movement and relieved by rest. Immunizations are up-to-date. Physical Examination: Vitals: Stable. Afebrile. General: Well-nourished and well-developed. Head: Normocephalic atraumatic. Neck: Supple, no lymphadenopathy. No JVD. Nontender. Cardiovascular: Regular rate and rhythm. No murmurs. Respiratory: No respiratory distress. Clear to auscultation bilaterally. Abdominal: Soft, nontender, nondistended, normal bowel sounds. No guarding, rebound, or peritoneal signs. Back: Nontender. Extremities: 0.5 cm laceration on the radial side of the distal phalanx. He is neurovascular intact. No active bleeding. Skin: Normal color, no rash. Neurologic: Alert and oriented 3. Cranial nerves II through XII are intact. Normal strength and sensation. Psych: Normal affect. Emergency Department Course and Treatment: Patient had his wound cleansed and a dressing was placed. Treatment Plan: Patient be discharged instructions with Dr. Lyons in 10-14 days if not improving. Disposition: To home in improved and stable condition. Impression: 1. Right thumb laceration, 0.5 cm, not repaired. This note was generated with Meshifyation software. It may contain incorrect words, spelling, and punctuation that were not noted in review of the chart prior to signing ED Disposition - Plan for ED Patient: Disposition: Home or Assisted Living Chief Complaint: Laceration Instructions: ED Laceration Small Superf No Sutr Referrals: Kendell Lyons DO [Primary Care Provider] - 10-14 Days if not better What to do if you have Problems For any increased pain, shortness of breath, bleeding, nausea or vomiting, chest pain, or any unexpected problems, contact your Primary Care Provider. Call [facility] ([phone]) or report to the closest Emergency Room. Call 911 if necessary. 10/04/17 0046 <Electronically signed by Agustin Abarca MD> Date Agustin Abarca MD Cosigner Signature (If Indicated): Date CC: Kendell Lyons DO EMERGENCY DEPARTMENT Observed: 07/27/2017 Status: F Source: TABOR SUMMARY 8:47 AM [facility] Medical Records Department [address] [place] [address] Emergency Department Summary 07/26/17 1359 MR#: [id number] Acct: [id number] Name: ORQUIDEA JUÁERZ Rep #: [id number] : 1965 51 From: Agustin Abarca MD PCP: Kendell Lyons DO Status: DEP ER - ER Visit Summary Date of Service: 07/26/17 Chief Complaint: Need detox History of Present Illness: The patient is a [address] Lyons and Dr. Monte. He reports that he drinks 4-8 beers per night and he does this 5 days a week. [facility] is on this for approximately 30 years. [facility] he has never been through detox or rehab. He has been to a couple meetings in the past. Patient reports that this morning he has had 3 beers and 1 shot. He went to [facility] and was brought here for alcohol withdrawal and admission to [facility]. Physical Examination: Vitals: Stable. Afebrile. General: Well-nourished and well-developed. Head: Normocephalic atraumatic. Neck: Supple, no lymphadenopathy. No JVD. Nontender. Cardiovascular: Regular rate and rhythm. No murmurs. Respiratory: No respiratory distress. Clear to auscultation bilaterally. Abdominal: Soft, nontender, nondistended, normal bowel sounds. No guarding, rebound, or peritoneal signs. Back: Nontender. Extremities: Nontender, no edema. Skin: Normal color, no rash. Neurologic: Alert and oriented 3. Cranial nerves II through XII are intact. Normal strength and sensation. Psych: Normal affect. Test Results: CBC is normal. Chem-7 is more for BUN of 5 and calcium of 8.2. LFTs are normal. Tox screen shows benzodiazepines alcohol level is 284. Emergency Department Course and Treatment: I had consulted [facility] and we were waiting for them to come up and see the patient when he became bored and asked to leave. Clinically he is not intoxicated. He is walking around without any difficulty. He has not been vomiting. Treatment Plan: At this point I do not think the patient is a good candidate for detox. He is not even waited the short period of time to be seen by [facility]. He will be discharged instructions to follow-up with [facility] soon as possible. Return to the emergency department for any worsening symptoms. Disposition: To home in improved and stable condition. Impression: 1. Alcohol intoxication. This note was generated with Spotistic dictation software. It may contain incorrect words, spelling, and punctuation that were not noted in review of the chart prior to signing ED Disposition - Plan for ED Patient: Disposition: Home or Assisted Living Chief Complaint: ETOH Intox Instructions: ED Alcohol Intoxication Referrals: EIGHTY,ONE [STAFF PHYSICIAN] - As soon as possible Kendell Lyons DO [Primary Care Provider] - Keep [facility] appointment What to do if you have Problems For any increased pain, shortness of breath, bleeding, nausea or vomiting, chest pain, or any unexpected problems, contact your Primary Care Provider. Call [facility] ([phone]) or report to the closest Emergency Room. Call 911 if necessary. 07/27/17 8338 <Electronically signed by Agustin Abarca MD> Date Agustin Abarca MD Cosigner Signature (If Indicated): Date CC: Kendell Lyons DO URINE DRUG SCREEN Collected: 07/26/2017 Status: F Source: HAROON (VISTA) 2:04 PM [facility] REPOSITORY Order Comment: Order Date: 07/26/17 TYPE CODE TESTS RESULT OUT OF RANGE REFERENCE UNITS LAB L505.0075 TO BE Normal CONFIRMED Result Comment: CONFIRMATORY TESTING FOR ALL POSITIVE URINE DRUG SCREEN RESULTS WILL ONLY BE SENT OUT UPON PHYSICIAN ORDER. VISTA Urine Drug Screen methods provide only preliminary analytical test results. A more specific alternate chemical method must be used in order to obtain a confirmed analytical result. Gas chromatography/mass spectrometery (GC/MS) is the preferred confirmatory method. Clinical consideration and professional judgement should be applied to any drug of abuse test result, particularly when preliminary positive results are used. URINE TCA TESTING MUST BE ORDERED SEPARATELY. USE TEST MNEMONIC: [facility] LAB L505.5005 VISTA UDS PH 6 Normal LAB L505.5015 <1000 ng/mL AMPHETAMINES Normal NEGATIVE LAB L505.5025 < 200 ng/mL BARBITIURATES Normal NEGATIVE LAB L505.5035 < 200 High ng/mL BENZODIAZIPINE POSITIVE LAB L505.5045 < 300 ng/mL COCAINE Normal NEGATIVE LAB L505.5055 < 500 ng/mL ECSTACY Normal NEGATIVE LAB L505.5065 < 300 ng/mL METHADONE Normal NEGATIVE LAB L505.5075 < 300 ng/mL OPIATES Normal NEGATIVE LAB L505.5085 < 25 ng/mL PCP Normal NEGATIVE LAB L505.5095 < 50 ng/mL THC Normal NEGATIVE Performed By: #### L505.5000 #### [facility] [address] [place], [place], [address] CBC-COMPLETE BLOOD CNT Collected: 07/26/2017 Status: F Source: HAROON NO DIFF 1:00 PM [facility] REPOSITORY TYPE CODE TESTS RESULT OUT OF RANGE REFERENCE UNITS LAB L100.1000 4.4-11.0 K/mm3 Normal WBC 7.8 LAB L100.1200 4.6-6.2 M/mm3 Normal RBC 4.70 LAB L100.1300 13.0-16.5 g/dl Normal HGB 15.6 LAB L100.1400 40-54 % Normal HCT 44.6 LAB L100.1500 80-94 fL High MCV 94.9 LAB L100.1600 27.0-32.0 pg High MCH 33.2 LAB L100.1700 32-36 g/gl Normal MCHC 35.0 LAB L100.1810 11.6-14.6 % Normal RDW CV 12.9 LAB L100.1820 35.1-43.9 fl Normal RDW SD 43.9 LAB L100.1900 150-450 K/mm3 Normal PLT 241 LAB L100.2000 6.2-12.0 fl Normal MPV 9.2 Performed By: #### L100.0500 #### [facility] [address] [place], [address] LIVER PROFILE Collected: 07/26/2017 Status: F Source: HAROON 1:00 PM [facility] REPOSITORY TYPE CODE TESTS RESULT OUT OF RANGE REFERENCE UNITS LAB L501.1500 6.4-8.2 g/dL Normal T PROT 7.6 LAB L501.1800 3.2-5.0 g/dL Normal ALB 4.0 LAB L501.1950 2.2-4.2 g/dL Normal GLOB 3.6 LAB L501.4100 15-37 U/L Normal AST 22 LAB L501.4305 45-117 U/L Normal ALK P 64 LAB L501.4405 16-61 U/L Normal ALT 33 LAB L501.4600 0.20-1.00 mg/dL Normal T BILI 0.30 LAB L501.4700 0.00-0.30 mg/dL Normal D BILI 0.13 Performed By: #### L500.3400, L500.4050 #### [facility] [address] [place], [address] COMPREHENSIVE METABOLIC Collected: 07/26/2017 Status: F Source: HAROON PROFIL 1:00 PM [facility] REPOSITORY TYPE CODE TESTS RESULT OUT OF RANGE REFERENCE UNITS LAB L501.0100 74-106 mg/dL Normal GLU 87 Result Comment: Please note revised GLUCOSE reference range effective 2017. LAB L501.1000 7-18 mg/dL Low BUN 5 LAB L501.1100 0.70-1.30 mg/dL Normal CREAT,SERUM 0.71 Result Comment: The validity of the calculated GFR AND GFRAA in patients over 70 years has not been determined. Clinical correlation is essential. LAB L501.1110 >60 mL/min Normal EST GFR 125 Result Comment: Non- GFR Calc LAB L501.1115 >60 mL/min Normal EST GFR - AA 151 Result Comment: GFR Calc LAB L501.1255 ml/min Normal Estimated CRCL 147.11 LAB L501.1300 10-20 RATIO Low BUN/CRE 7.1 LAB L501.2000 0.9-2. RATIO 4 A/G Normal 1.1 LAB L501.2200 8.5-10 mg/dL Low .1 CA 8.2 LAB L501.5300 136-14 mmol/L 5 NA Normal 140 LAB L501.5600 3.5-5. mmol/L 1 K Normal 4.2 LAB L501.5900 98-107 mmol/L CL Normal 106 LAB L501.6100 21.0-3 mmol/L 2.0 CO2 Normal 25.0 LAB L501.6200 5-15 GAP Normal 9 Performed By: #### L500.3400, L500.4050 #### [facility] [address] [place], [address] ALCOHOL, BLOOD Collected: 07/26/2017 Status: F Source: TABOR (MEDICAL)-SERUM 1:00 PM [facility] REPOSITORY TYPE CODE TESTS RESULT OUT OF RANGE REFERENCE UNITS LAB L501.9100 mg/dL Normal SERUM 284.0 ETOH Result Comment: The serum:whole blood ethanol ratio is approximately 1.14 and varies slightly with hematocrit. Medical Alcohol reference interval and critical value in non-tolerant individuals; 50 - 100 Impairment 100 Intoxication 100 - 250 Severe Poisoning 250 - 400 Deep/possible fatal coma Performed By: #### L501.9100 #### [facility] [address] [place], [address] 12 LEAD ELECTROCARDIOGRAM Observed: 07/06/2017 Status: F Source: [place] 1:57 PM [facility] REPOSITORY [facility] Cardiovascular Services [address] [place] [address] 12 Lead EKG 07/01/178 MR#: [id number] Acct: [id number] Name: ORQUIDEA JUÁREZ Rep #: [id number] : 1965 51 From: Gautam Alvarez MD Attending Dr: Status: DEP ER Ordering Dr: Thad Atkins DO Date: 07/01/17 Location: ED Sex: M C Admitted: Test Reason : CP Blood Pressure : / mmHG Vent. Rate : 082 BPM Atrial Rate : 082 BPM P-R Int : 174 ms QRS Dur : 088 ms QT Int : 370 ms P-R-T Axes : 042 -19 027 degrees QTc Int : 432 ms Normal sinus rhythm Inferior infarct , age undetermined , cannot be excluded Abnormal ECG Confirmed by ANTONIO VENTURA, GAUTAM ([id number]), videotape editor ASHLEY SHIELDS ([id number]) on 07/06/2017 1:57:31 PM Referred By: Confirmed By:GAUTAM ALVAREZ MD 07/06/17 1357 Date Gautam Alvarez MD CC: Thad Atkins DO; Kendell Lyons DO Signed EMERGENCY DEPARTMENT Observed: 07/02/2017 Status: F Source: [place] SUMMARY 1:26 AM [facility] REPOSITORY [facility] Medical Records Department [address] [place] [address] Emergency Department Summary 07/02/17 0114 MR#: [id number] Acct: [id number] Name: ORQUIDEA JUÁREZ Rep #: [id number] : 1965 51 From: Thad Atkins DO PCP: Kendell Lyons DO Status: DEP ER - ER Visit Summary Date of Service: 07/02/17 Chief Complaint: Chest pain History of Present Illness: The patient is a 51 M who states that for the past 3 days he has had a constant left-sided chest pressure described as a squeezing sensation going to his left arm. He states he has had prior heart attack and stents placement. Patient states he has been under a lot of stress due to conflict with his bosses. States he has had a couple of beers today but does not feel intoxicated. He had heart catheterization at the end of last year as well as stress testing in March of this year. The patient states get me the fuck out of here. Physical Examination: Afebrile vital signs are stable Gen: Well-nourished well-developed Head: Normocephalic atraumatic Eyes: Perrl EOMI ENT: TMs clear no rhinorrhea moist mucous membranes Neck: Supple no lymphadenopathy no JVD nontender CVS: Regular rate rhythm no murmurs normal S1-S2 Respiratory: No distress clear to auscultation bilaterally chest nontender Abdomen: Soft nontender nondistended normal bowel sounds no masses Back: Nontender Extremity: Nontender no edema Skin: Normal color no rash Neuro: alert orientated 3 CN II-XII intact normal strength sensation reflexes gait cerebellar Psych: Agitated Test Results: EKG done upon his arrival shows a sinus rhythm at a rate of 82 Emergency Department Course and Treatment: After my evaluation the patient refuses any further treatment. He signed out AMA. He was advised to call for a ride. The patient began cursing at whomever he was speaking at the phone loudly and even with the door shut numerous family members from surrounding rooms came out to inquire what was wrong. Patient was asked to keep his voice down and he could not do this. The patient was therefore asked to leave the department and the campus. The patient was escorted out of the building by this physician as security was unable to respond from their position. Impression: 1. Chest pain 2. Left AGAINST MEDICAL ADVICE This note was generated with Spotistic dictation software. It may contain incorrect words, spelling, and punctuation that were not noted in review of the chart prior to signing ED Disposition - Plan for ED Patient: Disposition: Against Medical Advice Chief Complaint: Chest Pain Referrals: Kendell Lyons, DO [Primary Care Provider] - What to do if you have Problems For any increased pain, shortness of breath, bleeding, nausea or vomiting, chest pain, or any unexpected problems, contact your Primary Care Provider. Call [facility] ([phone]) or report to the closest Emergency Room. Call 911 if necessary. 07/02/17 0126 <Electronically signed by Thad Atkins DO> Date Thad Atkins DO Cosigner Signature (If Indicated): Date CC: Kendell Lyons DO EMERGENCY DEPARTMENT Observed: 06/17/2017 Status: F Source: TABOR SUMMARY 10:21 AM [facility] REPOSITORY [facility] Medical Records Department [address] [address] Emergency Department Summary 05/27/17 0916 MR#: [id number] Acct: [id number] Name: ORQUIDEA JUÁREZ Rep #: [id number] : 1965 51 From: Aiden Gonzalez MD PCP: Kendell Lyons DO Status: DEP ER ADDENDUM by Aiden Gonzalez MD on 06/17/17 at 1021 History of herniated disc and degenerative disc disease lumbar spine. Date Aiden Gonzalez MD cc: Kendell Lyons DO * Signed - ER Visit Summary Date of Service: 05/27/17 Chief Complaint: Intermittent left lower back pain with radiation to left lower extremity and numbness left foot History of Present Illness: The patient is a 51 M who has history of coronary disease and is taking Plavix presents with complaint of left lower back pain and bruising more easily the past 4-5 days. Patient states the pain started 4-5 days ago. He localizes the left lower back. He reports intermittent radiation to the popliteal fossa on the left side. He also reports intermittent numbness of his entire left foot. He denies bowel or bladder dysfunction. He denies saddle paresthesia or anesthesia. He denies foot drop. He denies weakness in his thigh muscles going up or down steps. He denies any abdominal pain. He has also reports bruising easily past 5 days. He has no history of trauma. Of note review of his medication indicates he is on Plavix. He denies black or maroon stool. He denies hematuria. He denies joint pain or swelling. Physical Examination: Vitals are remarkable for slight elevation blood pressure 125/87. HEENT is unremarkable. Heart is regular without murmur, gallop or rub. S1 and S2 are normal. Lungs are clear to auscultation with good movement of air bilaterally. Abdomen is soft nontender with no palpable cell mass abdominal bruit. There is no evidence inguinal hernia. There is no evidence of trauma to the torso or back. There is no pain palpation midline or right or left CVA region. Straight leg test is negative bilaterally. He complained of pain left lower back at 45 . Patella and ankle reflex are 1+. EHL is present bilaterally. There is no weakness with plantar and dorsiflexion of the foot either. There is no clonus or Babinski sign noted. DP and PT pulses are palpable and symmetric. He has significant bruises noted lower extremities. He also has bruises right and left forearm. Test Results: See is unremarkable. PT/INR is normal. Emergency Department Course and Treatment: Patient was medicated with 30 mA of Toradol since he drove himself to the emergency department from work. To assess his bruising a CBC was obtained to assess platelet count and PT. Treatment Plan: Patient was reassessed at 0951. He states he has had improvement after treatment with Toradol. Therefore, will discharge with prescription for Toradol. He was informed he is bruising secondary to the Plavix. Disposition: Discharged home with appropriate home-going instructions Impression: 1. Left lower back pain of muscular skeletal etiology with radiation to the popliteal fossa 2. History of degenerative disc disease and remote history of herniated disc 3. Bruising easily secondary to Plavix 4. History of coronary disease This note was generated with Spotistic dictation software. It may contain incorrect words, spelling, and punctuation that were not noted in review of the chart prior to signing ED Disposition - Plan for ED Patient: Disposition: Home or Assisted Living Chief Complaint: Back Instructions: ED Neck Back Pain General Prescriptions: Ketorolac [Toradol] 10 mg PO Q6H #20 tab Referrals: Kendell Lyons, [Primary Care Provider] - 1 Week if not improving Additional Instructions: Your prescription was electronically transmitted to [facility] pharmacy; the pharmacy you designated as your pharmacy of choice. What to do if you have Problems For any increased pain, shortness of breath, bleeding, nausea or vomiting, chest pain, or any unexpected problems, contact your Primary Care Provider. Call [facility] ([phone]) or report to the closest Emergency Room. Call 911 if necessary. 05/27/17 0955 <Electronically signed by Aiden Gonzalez MD> Date Aiden Gonzalez MD Cosigner Signature (If Indicated): Date CC: Kendell Lyons DO CBC-COMPLETE BLOOD CNT Collected: 05/27/2017 Status: F Source: [place] NO DIFF 9:24 AM [facility] REPOSITORY TYPE CODE TESTS RESULT OUT OF RANGE REFERENCE UNITS LAB L100.1000 4.4-11.0 K/mm3 Normal WBC 6.5 LAB L100.1200 4.6-6.2 M/mm3 Low RBC 4.24 LAB L100.1300 13.0-16.5 g/dl Normal HGB 14.1 LAB L100.1400 40-54 % Normal HCT 41.8 LAB L100.1500 80-94 fL High MCV 98.6 LAB L100.1600 27.0-32.0 pg High MCH 33.3 LAB L100.1700 32-36 g/gl Normal MCHC 33.7 LAB L100.1810 11.6-14.6 % Normal RDW CV 12.4 LAB L100.1820 35.1-43.9 fl High RDW SD 44.1 LAB L100.1900 150-450 K/mm3 Normal PLT 188 LAB L100.2000 6.2-12.0 fl Normal MPV 9.5 Performed By: #### L100.0500 #### [facility] [address] [place], [address] PROTHROMBIN TIME W/INR Collected: 05/27/2017 Status: F Source: [place] 9:24 AM [facility] REPOSITORY TYPE CODE TESTS RESULT OUT OF RANGE REFERENCE UNITS LAB L300.4150 11.7-14.9 SECONDS Normal PROTIME 12.7 LAB L300.4200 Normal INR 1.0 Performed By: #### L300.3900 #### [facility] [address] [place], [address] 12 LEAD ELECTROCARDIOGRAM Observed: 04/01/2017 Status: F Source: [place] 1:07 PM [facility] REPOSITORY [facility] Cardiovascular Services [address] [place] [address] [place] [address] 12 Lead EKG 03/30/17 0632 MR#: [id number] Acct: [id number] Name: ORQUIDEA JUÁREZ Rep #: [id number] : 1965 51 From: Gautam Alvarez MD Attending Dr: Merle Higgins Status: DIS ANNAMARIA Ordering Dr: Gagandeep Pak DO Date: 03/30/17 Location: [facility] Sex: M C Admitted: 03/30/17 Test Reason : CP Blood Pressure : / mmHG Vent. Rate : 067 BPM Atrial Rate : 067 BPM P-R Int : 146 ms QRS Dur : 090 ms QT Int : 388 ms P-R-T Axes : -02 -18 006 degrees QTc Int : 409 ms Normal sinus rhythm Normal ECG Confirmed by ANTONIO VENTURA, GAUTAM ([id number]), videotape editor ASHLEY SHIELDS ([id number]) on 04/01/2017 1:07:26 PM Referred By: MERVAT Confirmed By:GAUTAM ALVAREZ MD 04/01/17 1028 Date Gautam Alvarez MD CC: Kendell Lyons DO; Gagandeep Pak Signed DISCHARGE SUMMARY Observed: 03/31/2017 Status: F Source: [place] 12:51 PM [facility] REPOSITORY [facility] Medical Records Department [address] [place] [address] Discharge Summary 03/31/17 1248 MR#: [id number] Acct: [id number] Name: ORQUIDEA JUÁREZ Rep #: [id number] : 1965 51 From: Merle Higgins MD PCP: Kendell Lyons DO Status: DIS ANNAMARIA Y Location: [place] [address] Discharge Date and Diagnosis Date of Admission: 03/30/17 Date of Discharge: 03/30/17 - Primary Discharge Diagnosis Chest pain, negative cardiac workup including stress test. - Secondary Discharge Diagnosis Chronic Problems (Last Updated 03/30/17 @ 09:21 by Merle Higgins MD) S/P coronary artery stent placement (Chronic) 12/23/16 distal and proximal RCA CAD (coronary artery disease), sioux coronary artery (Chronic) History of PTCA (Chronic) 12/23/16 2 bare metal stents to the RCA Smoking addiction (Chronic) Anxiety (Chronic) Noncompliance (Chronic) Hospital Course and Treatment Imaging Results: Clinical Impression(s) from Imaging Studies Chest X-Ray 03/30/17 06:46 IMPRESSION: Normal x-ray examination of the chest. Electronically Signed: Tanner Jiménez MD at 8:07 EST Tel [phone], Service support , Operations: None Procedures: EKG, Stress test Summary of Care Provided: The patient is a 51 year old M admitted because of chest pain for evaluation. He had a recent history of STEMI status post stents back in December,. One month later, he had non-STEMI on January, and he underwent cardiac catheterization that revealed widely patent mid and distal RCA stents with nonobstructive coronary arteries and that non-ST elevation SC attributed to poorly controlled hypertension. During this admission, his EKG revealed normal sinus rhythm without acute ischemic changes. Troponin was negative 3. His chest x-ray showed no acute findings. He underwent nuclear stress test that was reported as negative without evidence of stress-induced myocardial ischemia. He was found to have mild hyperkalemia which is attributed to losartan. His potassium was 5.4, received 1 dose of Kayexalate and his potassium came down to 4.1. Acute coronary syndrome ruled out. Patient discharged home in a stable medical condition, discharged on his chronic home medication without any changes, recommended follow-up with PCP in 2 weeks and follow-up with cardiology as scheduled. Discharge Activity: Return to Normal Activity Weight Bearing Status: Full weight bearing Call your doctor if you observe: Fever of 101 or Higher, Shortness of breath, Dizziness, Fainting spells, Chest pain, Increased palpitations (irregular heartbeat), Uncontrolled pain Home Medications: Medications to take at Discharge Aspirin E.C. [Ecotrin] 81 mg PO DAILY@0800 tablet 12/25/16 Nicotine [Nicoderm Cq] 21 mg TRANSDERM. DAILY #14 patch 12/25/16 atorvastatin 80 mg tablet 80 mg PO QHS 90 Days #90 tab 01/19/17 carvedilol 6.25 mg tablet 6.25 mg PO BID #180 tab 01/19/17 clopidogrel 75 mg tablet 75 mg PO DAILY #90 tab 01/19/17 losartan 25 mg tablet 25 mg PO DAILY #90 tab 01/19/17 ALPRAZolam [Xanax] 2 mg PO QHS PRN PRN 03/30/17 Fluoxetine [Prozac] 20 mg PO DAILY 03/30/17 Primary Care Physician: Kendell Lyons DO [Primary Care Provider] - Please follow up with your Primary Care Physician in: 2 weeks. Disposition: Home Minutes spent on discharge:: 25 Patient Condition:: Stable Meaningful Use Info Meaningful Use Diagnoses (Choose all that apply): None applicable Code Visit OBSV Dot AND M: 07012 Observ/hosp same date L1 03/31/17 1251 <Electronically signed by Merle Higgins MD> Date Merle Higgins MD Cosigner Signature (if applicable): Date CC: Merle Higgins; Kendell Lyons DO Signed STRESS REPORT Observed: 03/30/2017 Status: F Source: [place] 6:44 PM [facility] REPOSITORY [facility] Cardiovascular Services [address] [place] [address] MR#: [id number] Acct: [id number] Name: ORQUIDEA JUÁREZ Rep #: [id number] : 1965 51 From: Gautam Alvarez MD Primary Care: Kendell Lyons DO Status: DIS ANNAMARIA Ordering Dr: Adalberto: Cody Mcneil Stress Test Report Date: 03/30/2017 Procedure: Exercise tolerance test/imaging study Indications: Chest pain; shortness of breath/dyspnea Consent: Per the patient Procedure: The patient exercised on a Bryan protocol for 4 minutes completing stage 1 and 1 minute of stage II achieving a peak heart rate of 139 bpm (82 % predicted maximal heart rate) with a peak blood pressure 158/70 mmHg and a peak MET capacity of 6 METs. The baseline ECG demonstrated normal sinus rhythm. The peak exercise ECG demonstrated Mattix/motion artifact with no obvious ECG changes. There were rare PACs/PVCs during recovery The functional capacity was considered decreased. There was no complaint of chest discomfort during exercise or recovery. The examination was discontinued secondary to dyspnea. Impression: 1. Technically adequate (percent predicted maximal heart rate greater than 85%) exercise tolerance test 2. Peak exercise ECG with somatic/motion artifact with no obvious ECG changes 3. Rare PAC/PVCs during recovery. 4. Pharmacologic (Regadenoson) evaluation pending Date: 03/30/2017 Procedure: Pharmacologic stress nuclear imaging study Indications: Chest pain; shortness of breath/dyspnea Consent: Per patient Procedure: The patient underwent pharmacologic (Regadenoson) evaluation with a peak heart rate of 104 per minute and a peak blood pressure of 138/72 mmHg. The baseline ECG demonstrated normal sinus rhythm. The peak pharmacologic ECG demonstrated no obvious ECG changes. There was a rare PVC pretest. There was no complaint of chest discomfort during pharmacologic infusion or recovery. The examination was discontinued secondary to completion of protocol. Impression: 1. Pharmacologic (Regadenoson) evaluation 2. Peak pharmacologic ECG with no obvious ECG changes. 3. Rare PVC pretest 4. Nuclear images pending Myocardial perfusion imaging study: Technique: The patient was injected with 14.3 millicuries of technetium 99m Cardiolite and subsequently rest SPECT Cardiolite nuclear imaging was obtained in the horizontal long, vertical long, and short axis views. The patient exercised on a Bryan protocol for 4 minutes completing stage 1 and 1 minute of stage II achieving a peak heart rate of 139 bpm (82 % predicted maximal heart rate) with a peak blood pressure 158/70 mmHg and a peak MET capacity of 6 METs. The patient underwent pharmacologic (Regadenoson) evaluation with a peak heart rate of 104 per minute and a peak blood pressure of 38/72 mmHg. The patient was injected with 44.2 millicuries of technetium 99m Cardiolite and subsequently stress SPECT Cardiolite nuclear imaging was obtained in the horizontal long, vertical long, and short axis views. A gated Cardiolite study at peak stress was obtained. Interpretation: Rest and stress SPECT Cardiolite nuclear imaging status post realignment, normalization, and attenuation correction demonstrate extracardiac/gastrointestinal tracer uptake near the inferior segments and a small area of subtle diminished tracer uptake in the apical areas. There is end systolic thickening and brightening. The gated Cardiolite study demonstrates myocardial thickening and inward wall motion. The reported LVEF is 56%. Impression: 1. Rest and stress SPECT Cardiolite nuclear imaging demonstrates myocardial perfusion changes appearing compatible with physiologic apical thinning with no myocardial perfusion changes consider diagnostic for associated stress-induced myocardial ischemia or previous myocardial injury/infarction. 2. The gated Cardiolite study reports an LVEF of 56% This note was generated with Meshifyation software. It may contain incorrect words, spelling, and punctuation that were not noted in checking the note before signing. 03/30/17 1844 <Electronically signed by Gautam Alvarez MD> Date Gautam Alvarez MD CC: Socrates Monte MD; Kendell Lyons DO Date Dictated: 03/30/171834 Date Transcribed: 03/30/171834 Arc Cutter: PM Signed DISCHARGE INSTRUCTION Observed: 03/30/2017 Status: F Source: [place] 3:53 PM [facility] REPOSITORY [facility] Medical Records Department [address] [place] [address] Instructions for Home/Discharge Instructions 03/30/17 1552 MR#: [id number] Acct: [id number] Name: ORQUIDEA JUÁREZ Rep #: [id number] : 1965 51 From: Merle Higgins MD PCP: Kendell Lyons DO Status: ADM ANNAMARIA You will use the following diet at home:: Cardiac Your food should be the consistency of: Regular Discharge Activity: Return to Normal Activity Weight Bearing Status: Full weight bearing Call your doctor if you observe: Fever of 101 or Higher, Shortness of breath, Dizziness, Fainting spells, Chest pain, Increased palpitations (irregular heartbeat), Uncontrolled pain Allergies/Adverse Reactions: Allergies No Known Allergies Allergy (Verified 03/30/17 06:30) Medications to take at Discharge Aspirin E.C. [Ecotrin] 81 mg PO DAILY@0800 tablet 12/25/16 Nicotine [Nicoderm Cq] 21 mg TRANSDERM. DAILY #14 patch 12/25/16 atorvastatin 80 mg tablet 80 mg PO QHS 90 Days #90 tab 01/19/17 carvedilol 6.25 mg tablet 6.25 mg PO BID #180 tab 01/19/17 clopidogrel 75 mg tablet 75 mg PO DAILY #90 tab 01/19/17 losartan 25 mg tablet 25 mg PO DAILY #90 tab 01/19/17 ALPRAZolam [Xanax] 2 mg PO QHS PRN PRN 03/30/17 Fluoxetine [Prozac] 20 mg PO DAILY 03/30/17 Primary Care Physician: Kendell Lyons DO [Primary Care Provider] - Please follow up with your Primary Care Physician in: 2 weeks. 03/30/17 1553 <Electronically signed by Merle Higgins MD> Date Merle Higgins MD CC: Kendell Lyons DO TROPONIN-I Collected: 03/30/2017 Status: F Source: [place] 2:05 PM [facility] REPOSITORY Order Comment: 'TROP' Serial specimen #1, #2, #3, or #4: 3 TYPE CODE TESTS RESULT OUT OF RANGE REFERENCE UNITS LAB L501.4010 <0.06 ng/mL Normal < 0.02 TROPONIN-I Result Comment: TROPONIN-I EXPECTED VALUES <0.05 NEGATIVE 0.06 - 0.59 AT RISK OF SC > OR = 0.60 SUGGEST SC Performed By: #### L501.4010 #### [facility] [address] [facility] [place], [address] POTASSIUM Collected: 03/30/2017 Status: F Source: [place] 2:05 PM [facility] REPOSITORY TYPE CODE TESTS RESULT OUT OF RANGE REFERENCE UNITS LAB L501.5600 3.5-5.1 mmol/L Normal K 4.1 Performed By: #### L501.5600 #### [facility] [address] [facility] [place], [address] HISTORY AND PHYSICAL Observed: 03/30/2017 Status: F Source: [place] EXAM 9:30 AM [facility] REPOSITORY [facility] Medical Records Department [address] [place] [address] History and Physical 03/30/17 0921 MR#: [id number] Acct: [id number] Name: ORQUIDEA JUÁREZ Rep #: [id number] : 1965 51 From: Merle Higgins MD PCP: Kendell Lyons DO Status: ADM ANNAMARIA Y Location: [place] [address] Problem List (1) CAD (coronary artery disease), sioux coronary artery Status: Chronic Qualifiers: (2) History of PTCA Status: Chronic Comment: 12/23/16 2 bare metal stents to the RCA (3) Anxiety Status: Chronic (4) Noncompliance Status: Chronic History of Present Illness Date of Admission: 03/30/17 Chief Complaint: Chest pain. The patient is a 51 year old M with past medical history as mentioned above presented to the medicine because of chest pain. His symptoms started this morning after he woke up from sleep around 4 AM with left-sided chest pain, squeezing pain, 7 out of 10 in severity, not radiating, aggravated by bending forward or coughing without relieving factors and relieved by nitroglycerin that he received in the emergency room. He denied associated shortness of breath, dizziness, lightheadedness, nausea, vomiting or sweating. At this time, he mentioned that his pain is down to 1 out of 10. In the emergency room, his vital signs were stable. His routine blood work was remarkable for potassium of 5.4, otherwise normal. Troponin is negative. EKG revealed normal sinus rhythm, normal [place] interval, normal QRS, normal QTC and no acute ischemic changes. Chest x-ray showed no acute findings. He is being admitted for atypical chest pain for evaluation. Past Medical History Past Medical History (Chronic Problems): Chronic Problems (Last Updated 01/17/17 @ 09:00 by BETH Ho) S/P coronary artery stent placement (Chronic) 12/23/16 distal and proximal RCA CAD (coronary artery disease), sioux coronary artery (Chronic) History of PTCA (Chronic) 12/23/16 2 bare metal stents to the RCA Smoking addiction (Chronic) Anxiety (Chronic) Noncompliance (Chronic) Allergies No Known Allergies Allergy (Verified 03/30/17 06:30) Home Medications: Ambulatory Orders Medication Instructions Recorded Aspirin E.C. [Ecotrin] 81 mg PO DAILY@0800 tablet 12/25/16 Nicotine [Nicoderm Cq] 21 mg TRANSDERM. DAILY #14 patch 12/25/16 Surgical History: herniorrhaphy Psychiatric History: Anxiety Lives: Spouse/ Significant Other Smoking Status: Current every day smoker Alcohol: None Drugs: None - *Family History Sibling History Items: Heart Disease Maternal History Items: No pertinent history Paternal History Items: No pertinent history Review of Systems Constitutional: Denies: Anorexia, Chills, Fever, Weakness Eyes: Denies: Blurred vision, Double vision, Drainage, Redness HEENT: Denies: Difficulty Hearing, Ear Pain, Eye Pain, Nasal Congestion, Sore Throat Cardiovascular: Reports: Chest Pain. Denies: Chest Tightness, Edema, Heaviness, Light Headedness, Palpitations, Syncope Respiratory: Denies: Cough, Hemoptysis, Shortness of Breath, Sputum production, Wheezing Gastrointestinal: Denies: Abdominal Pain, Constipation, Diarrhea, Nausea, Vomiting Genitourinary: Denies: Dysuria, Frequency, Hematuria Musculoskeletal: Denies: Arm Pain, Back Pain, Foot Pain Skin: Denies: Dryness, Rash Neurological: Denies: Balance problems, Blurred vision, Double vision, Slurred speech, Confusion, Headaches, Incoordination Psychiatric: Reports: Anxiety. Denies: Depression Endocrine: Denies: Change in Body Habitus, Polydipsia VTE Information - Inpt Only VTE Present on Admission: No VTE Mechan Device Prophylaxis: None VTE Pharm Prophylaxis ordered?: No - Physical Exam General: Alert, Oriented x3, Cooperative, No apparent distress HEENT: Atraumatic, PERRLA, EOMI Oral: Moist Mucosa, No Gingival or Mucosal Lesions/ Ulcerations Neck: Supple, No JVD, Negative Carotid Bruits, Trachea Midline, Thyroid Normal Size and Texture Lungs: Clear to auscultation, Normal air movement, No rhonchi, No wheeze, No rales Cardiovascular: Regular rate, Regular Rhythm, Normal S1, Normal S2, PMI Normal Abdomen: Bowel Sounds Present, Soft, Non Tender, Non-Distended, No Hepato-splenomegaly Extremities: No clubbing, No cyanosis, No edema Skin: No rashes, No breakdown Lymphatic: No Cervical, Supraclavicular, or Inguinal Adenopathy Neurological: Cranial nerves II-XII grossly intact, Motor Exam 5/5 strength throughout Psych/Mental Status: Normal Affect, Appropriate, Alert and oriented to time, place, person, mood and affect Vital Signs Temp Pulse Resp BP Pulse Ox 97.9 F 65 16 130/72 H 98 03/30/17 08:35 03/30/17 08:35 03/30/17 08:35 03/30/17 08:36 03/30/17 08:35 Oxygen Delivery Method Room Air Weight: 215 lb 2.738 oz Body Mass Index (BMI) 26.9 Laboratory Tests WBC 6.9 (4.4-11.0) K/mm3 RBC 4.45 L (4.6-6.2) M/mm3 Clinical Impression(s) from Imaging Studies Chest X-Ray 03/30/17 06:46 IMPRESSION: Normal x-ray examination of the chest. Electronically Signed: Tanner Jiménez MD at 8:07 EST Tel [phone], Service support , Assessment/Plan This is a 51 years old male patient presented to the medicine because of chest pain and he is being admitted for evaluation. #1 atypical chest pain: In context of history of recent history of STEMI in December, status post stents to RCA. Also, patient had non-STEMI back in January, and he underwent repeat cardiac catheterization at that time 1 month after his STEMI and that revealed widely patent mid and distal RCA stents and nonobstructive coronary arteries and that non-STEMI attributed to elevated high blood pressure due to noncompliance. Today, his EKG was unremarkable, troponin is negative, chest x-ray without acute findings. Plan: Admit to PCU for observation, cardiac monitoring, serial cardiac enzymes, nuclear stress test if cardiac enzymes are negative. #2 hyperkalemia: Mild, potassium is 5.4. Likely because of losartan. Plan: IV fluids with normal saline, Kayexalate 1, repeat potassium at 3 PM today. #2 CAD status post stents to RCA: Plan as above, continue aspirin, Plavix, statins and losartan, hold Coreg for stress test. #4 anxiety: Continue Xanax. #5 hyperlipidemia: Continue statins. #6 tobacco abuse: Continue NicoDerm patch. #7 DVT prophylaxis: Low risk patient, no prophylaxis indicated. This note was generated with Spotistic dictation software. It may contain incorrect words, spelling, and punctuation that were not noted in checking the note before signing. Code Visit OBSV E AND M: 12213 Initial observation care L3 03/30/17 0930 <Electronically signed by Merle Higgins MD> Date Merle Higgins MD Cosigner Signature: Date (if applicable) CC: Merle Higgins; Kendell Lyons DO Signed EMERGENCY DEPARTMENT Observed: 03/30/2017 Status: F Source: [place] SUMMARY 8:02 AM [facility] REPOSITORY [facility] Medical Records Department [address] [place] [address] Emergency Department Summary 03/30/17 0754 MR#: [id number] Acct: [id number] Name: ORQUIDEA JUÁREZ Rep #: [id number] : 1965 51 From: Gagandeep Sarkar PCP: Kendell Lyons DO Status: ADM ANNAMARIA - ER Visit Summary Date of Service: 03/30/17 Chief Complaint: Chest pain History of Present Illness: The patient is a 51 M sudden left- sided chest tightness while getting ready for work at 430. Denied radicular symptoms. Denies nausea, dyspnea, diaphoresis. Tobacco history. Father with SC at in his 30s. Patient states had a heart attack this past December with stenting, then he states he is brought back in January for additional stent. He is followed by Dr. Monte. He states he does not have time for cardiac rehab. He is on Plavix and states he is taking this. Pain is 8. He took a baby aspirin at home. States she has alcohol 2 times per week, denies any illicit drug use. He states he symptoms feels like his initial heart attack in December. Records reviewed, noted he has STEMI in December with 2 right coronary stents. He had admission January for acute chest pain symptoms with an NSTEMI. Records reporting that he missed some Plavix dose it is, there was concerns for in-stent stenosis. He had a troponin in the fives, he signed out AMA, however return for the catheterization that noted patent stents. He was medically managed and discharged home with outpatient follow-up. Physical Examination: General: Alert and oriented 3, no acute distress HEENT: Normocephalic, atraumatic. Moist mucosa membranes Neck: supple, nontender. Cardiovascular: Regular rate and rhythm, no murmurs Respiratory: Normal breath sounds, symmetric, no distress Abdomen: Soft, nontender, nondistended Extremities: Nontender, no edema, pulses intact 4 Neuro: no focal neurological deficits. Test Results: EKG: Normal sinus rhythm, rate of 67, no ST elevation. Isolated T-wave inversion in leads III. Troponin negative. Potassium 5.4 with moderate hemolyzed sedation. Creatinine 0.8. Emergency Department Course and Treatment: Patient presented with chest tightness similar to his initial SC. EKG with nonspecific findings. Was given additional aspirin, nitro series with significant relief of his symptoms. Nitroglycerin patch was placed. Workup negative. Hemolyzed potassium 5.4. After evaluation of his records noting concerns for noncompliance and continued tobacco history. I did speak with cardiology Dr. Mtz, agrees that patient should stay in the hospital for cycling of his enzymes. He states that this is negative stress test can be obtained and if negative can be discharged home. I spoke with hospitalist, Dr. Higgins for admission. Treatment Plan: [] Disposition: Admission Impression: Acute chest pain This note was generated with Spotistic dictation software. It may contain incorrect words, spelling, and punctuation that were not noted in review of the chart prior to signing ED Disposition - Plan for ED Patient: Disposition: Acute Care Hospital [facility] Chief Complaint: Chest Pain Diagnosis: Acute chest pain What to do if you have Problems For any increased pain, shortness of breath, bleeding, nausea or vomiting, chest pain, or any unexpected problems, contact your Primary Care Provider. Call [facility] ([phone]) or report to the closest Emergency Room. Call 911 if necessary. 03/30/17 0802 <Electronically signed by Gagandeep Sarkar> Date Gagandeep Sarkar Cosigner Signature (If Indicated): Date CC: Kendell Lyons DO CHEST 1 VIEW Observed: 03/30/2017 Status: F Source: TABOR (PORTABLE) 6:47 AM [facility] REPOSITORY [facility] Imaging Services [address] [place] [address] Chest 1 View (Portable) MR#: [id number] Acct: [id number] Name: ORQUIDEA JUÁREZ Rep #: [id number] : 1965 M 51 From: Tanner Jiménez MD PCP: Kendell Lyons DO Status: ADM ANNAMARIA Study: Chest 1 View (Portable) Date of Exam: 03/30/17 Exam# [id number] Ordering Dr: Gagandeep Pak DO STUDY: X-RAY CHEST REASON FOR EXAM: Male, 51 years old. Chest pain. TECHNIQUE: Single AP portable view of the chest. COMPARISON: Comparison is made with prior study dated January 11, 2017. FINDINGS: EKG electrodes are seen. Hyperinflation. The lungs are clear. There is no demonstrated pleural abnormality. Normal size heart. Normal mediastinum and stephen. Normal visualized pulmonary arteries. Normal visualized aortic arch and descending thoracic aorta. Normal visualized thoracic spine. Normal visualized ribs, clavicles, and shoulders. There is no demonstrated abnormality of the visualized soft tissue structures of the upper abdomen. RAD/Chest 1 View (Portable) IMPRESSION: Normal x-ray examination of the chest. Electronically Signed: Tanner Jiménez MD at 8:07 EST Tel [phone], Service support , CC: Kendell Pak Arc Cutter: Signed CBC W/DIFF, AUTOMATED Collected: 03/30/2017 Status: F Source: [place] 6:40 AM [facility] REPOSITORY TYPE CODE TESTS RESULT OUT OF RANGE REFERENCE UNITS LAB L100.1000 4.4-11.0 K/mm3 Normal WBC 6.9 LAB L100.1200 4.6-6.2 M/mm3 Low RBC 4.45 LAB L100.1300 13.0-16.5 g/dl Normal HGB 14.5 LAB L100.1400 40-54 % Normal HCT 43.0 LAB L100.1500 80-94 fL High MCV 96.6 LAB L100.1600 27.0-32.0 pg High MCH 32.6 LAB L100.1700 32-36 g/gl Normal MCHC 33.7 LAB L100.1810 11.6-14.6 % Normal RDW CV 13.2 LAB L100.1820 35.1-43.9 fl High RDW SD 47.1 LAB L100.1900 150-450 K/mm3 Normal PLT 221 LAB L100.2000 6.2-12.0 fl Normal MPV 9.8 LAB L100.2100 47-70 % Normal NEUT% 55.6 LAB L100.2200 19-41 % Normal LY% 29.0 LAB L100.2300 0-10 % High MONO% 10.7 LAB L100.2400 0-5 % Normal EO% 4.3 LAB L100.2500 0-1 % Normal BASO% 0.3 LAB L100.2550 0.0-0.9 % Normal IM GRAN % 0.100 Result Comment: IG% - Immature Granulocytes (promyelocytes, myelocytes and metamyelocytes) > 1% indicates that a LEFT SHIFT is Present. LAB L100.2620 2.0-7.7 X10 3/uL Normal Absolute Neut 3.8 LAB L100.2720 0.83-4.51 X10 3/ul Normal Absolute Lymph 2.01 Performed By: #### L100.0100 #### [facility] [address] [place], [address] BASIC METABOLIC Collected: 03/30/2017 Status: F Source: TABOR PROFILE ([facility]) 6:40 AM [facility] REPOSITORY Order Comment: 'TROP' Serial specimen #1, #2, #3, or #4: 1 TYPE CODE TESTS RESULT OUT OF RANGE REFERENCE UNITS LAB L501.0100 74-106 mg/dL High GLU 110 Result Comment: Fasting Glucose result from 100 to 125 mg/dL suggests IMPAIRED HOMEOSTASIS per A.D.A. criteria. Please note revised GLUCOSE reference range effective 2017. LAB L501.1000 7-18 mg/dL Normal BUN 12 LAB L501.1100 0.70-1.30 mg/dL Normal CREAT,SERUM 0.80 Result Comment: The validity of the calculated GFR AND GFRAA in patients over 70 years has not been determined. Clinical correlation is essential. LAB L501.1110 >60 mL/min Normal EST GFR 109 Result Comment: Non- GFR Calc LAB L501.1115 >60 mL/min Normal EST GFR - AA 131 Result Comment: GFR Calc LAB L501.1255 ml/min Normal Estimated CRCL 130.56 LAB L501.1300 10-20 RATIO BUN/CRE Normal 15.1 LAB L501.2200 8.5-10 mg/dL Low .1 CA 8.4 LAB L501.5300 136-14 mmol/L 5 NA Normal 140 LAB L501.5600 3.5-5. mmol/L High 1 K 5.4 Result Comment: Moderate Hemolysis, Result may be falsely increased. LAB L501.5900 98-107 mmol/L Normal CL 107 LAB L501.6100 21.0-32.0 mmol/L Normal CO2 26.0 LAB L501.6200 5-15 Normal 7 GAP Performed By: #### L500.2500, L501.4010 #### [facility] [address] [place], [address] TROPONIN-I Collected: 03/30/2017 Status: F Source: [place] 6:40 AM [facility] REPOSITORY Order Comment: 'TROP' Serial specimen #1, #2, #3, or #4: 1 TYPE CODE TESTS RESULT OUT OF RANGE REFERENCE UNITS LAB L501.4010 <0.06 ng/mL Normal < 0.02 TROPONIN-I Result Comment: TROPONIN-I EXPECTED VALUES <0.05 NEGATIVE 0.06 - 0.59 AT RISK OF SC > OR = 0.60 SUGGEST SC Performed By: #### L500.2500, L501.4010 #### [facility] [address] [place], [address] ALLERGIES ALLERGIES DATE TYPE / CODE NAME / CODE REACTION SEVERITY SOURCE 02/28/2018 Drug No Known Unknown [facility] Allergy/4160 Allergies/F00 [facility] 78699(SNOMED 4447856(RXNOR Repository CT) M) ENCOUNTERS ENCOUNTERS ADMIT/DISCHARGE ACCOUNT ADMITTING ENCOUNTER LOCATION SOURCE NUMBER CLASS 03/04/2018/ [id number] Emergency [place] 9 7 [facility] ing:ED Repository 02/28/2018/ [id number] Emergency [place] 9 6 [facility] ing:ED Repository 02/11/2018 [id number] Lisa Palacios Ambulatory BMSBuilding:B [place] 7 [place]ia [facility] Repository 02/11/2018 [id number] Lisa Palacios Ambulatory BMSBuilding:B [place] 8 [place] [facility] Repository 02/11/2018/ [id number] Lisa Palacios Inpatient [place] 9 1 [place]ia Encounter [facility] ing:BO8Sknz: Repository [id number]: 1 02/08/2018 [id number] Emergency [place] 1 [facility] ing:ED Repository 02/06/2018/ [id number] Emergency [place] 8 0 [facility] ing:ED Repository 01/04/2018/ [id number] Ambulatory BMSBuilding:B [place] 8 4 [facility] Repository 12/31/2017/ [id number] Emergency [place] 8 1 [facility] ing:ED Repository 12/26/2017/ [id number] Emergency [place] 8 2 [facility] ing:ED Repository 12/07/2017/ [id number] Emergency [place] 8 4 [facility] ing:ED Repository 10/11/2017/ [id number] Emergency [place] 8 1 [facility] ing:ED Repository 10/03/2017/ [id number] Emergency [place] 8 9 [facility] ing:ED Repository 07/28/2017 [id number] Ambulatory BMSBuilding:B [place] 4 [facility] Repository 07/28/2017 [id number] Ambulatory BMSBuilding:B [place] 1 [facility] Repository 07/26/2017/ [id number] Emergency [place] 8 8 [facility] ing:ED Repository 07/01/2017/ [id number] Emergency [place] 8 2 [facility] ing:ED Repository 05/27/2017/ [id number] Emergency [place] 8 2 [facility] ing:ED Repository 03/30/2017/ [id number] Ambulatory BMSBuilding:W [place] 8 7 [facility] Repository 03/30/2017 [id number] [place], Ambulatory BMSBuilding:B [place] 6 Ghasem [facility] Repository 03/30/2017 [id number] [place], Ambulatory BMSBuilding:B [place] 5 Ghasem [facility] Repository 03/30/2017/ [id number] [facility], Ambulatory [place] 8 0 Ghasem [facility] ing:PCURoom: Repository [id number]: 1 PAYERS PAYERS ENCOUNTER GUARANTOR PAYER SUBSCRIBER SOURCE 03/04/2018 ORQUIDEA ORNELAS Primary NOT GIVENUNK [place] [id number] Insurance:SELF PAY [place] Number: Effective Repository [id number]: (304) Date:2018-03-04 [phone] () 02/28/2018 ORQUIDEA Lopez Primary NOT GIVENUNK [place] [id number] Insurance:SE[place] Number: Effective Repository [id number]: (304) Date:2018-02-28 [phone] () 02/11/2018 ORQUIDEA T Primary NOT GIVENUNK [place] [id number] Insurance:[place] Number: Effective Repository [id number]: (304) Date:2018-02-11 [phone] () 02/11/2018 ORQUIDEA Lopez Primary NOT GIVENUNK [place] [id number] Insurance:[place] Number: Effective Repository [id number]: (304) Date:2018-02-11 [phone] () 02/11/2018 ORQUIDEA T Primary NOT GIVENUNK [place] [id number] Insurance:[place] Number: Effective Repository [phone]: (304) Date:2018-02-11 [phone] () 02/08/2018 ORQUIDEA T Primary ORQUIDEA T [place] [id number] Insurance:AULTCAREPol WOLAKDOB: [facility] Number: [id number], [place] [id number] Repository [address]Tof: (304) Date:6404-26-90[phone] (HP) [address], [place] [address]KW: 02/08/2018 Secondary NOT GIVENUNK [place] Insurance:SELF PAY [facility] Number: Effective Repository Date:2018-02-08 02/06/2018 ORQUIDEA Lopez Primary ORQUIDEA Patiño [id number] Insurance:AULTCAREPol WOLAKDOB: Community [place] icy Number: [id number], [place] [id number] Repository 73[address]Ihp: (304) Date:0840-04-83IK [phone] (HP) [address], [place] [address]UP: 02/06/2018 Secondary NOT GIVENUNK [place] Insurance:SELF PAY [facility] Number: Effective Repository Date:2018-02-06 01/04/2018 ORQUIDEA Lopez Primary ORQUIDEA Lopez [place] [id number] Insurance:AULTCAREPol WOLAKDOB: [facility] NORMANDY ic Number: [id number], [place] [id number] Repository [address]58[address]Dlh: 304) Date:6947-62-94HY [phone] (HP) [address], [place] [address]LX: 01/04/2018 Secondary NOT GIVENUNK [place] Insurance:SELF PAY [facility] Number: Effective Repository Date:2018-01-04 12/31/2017 ORQUIDEA Lopez Primary ORQUIDEA Lopez [place] [id number] Insurance:AULTCAREPol WOLAKDOB: Community [place] Number: [id number], [place] [id number] Repository [address]Bua: 304) Date:9948-21-44XQ [phone] (HP) [address], [place] [address]ZS: 12/31/2017 Secondary NOT GIVENUNK [place] Insurance:SELF PAY [facility] Number: Effective Repository Date:2017-12-31 12/26/2017 ORQUIDEA Lopez Primary ORQUIDEA Patiño [id number] Insurance:AULTCAREPol WOLAKDOB: Community [place] Number: [id number], [place] [id number] Repository [address]Gaf: (304) Date:4433-99-23PQ [phone] () [place] [address]PK: 12/26/2017 Secondary NOT GIVENUNK [place] Insurance:SELF PAY [facility] Number: Effective Repository Date:2017-12-26 12/07/2017 ORQUIDEA T Primary NOT GIVENUNK [place] [id number] Insurance:[place] Number: Effective Repository [id number]: (304) Date:2017-12-07 [phone] () 10/11/2017 ORQUIDEA T Primary NOT GIVENUNK [place] [id number] Insurance:[place] Number: Effective Repository [phone]: (304) Date:2017-10-11 [phone] () 10/03/2017 ORQUIDEA T Primary NOT GIVENUNK [place] [id number] Insurance:[place] Number: Effective Repository [phone]: (304) Date:2017-10-03 [phone] () 07/28/2017 ORQUIDEA T Primary ORQUIDEA T [place] [id number] Insurance:SUMMA WOLAKDOB: [facility] Number: [id number], [place] [id number] Repository [address]Fag: (304) Date:9127-75-22CL [phone] () [address], [place] [address]YD: 07/28/2017 Secondary NOT GIVENUNK [place] Insurance:SELF PAY [facility] Number: Effective Repository Date:2017-01-17 07/28/2017 ORQUIDEA T Primary ORQUIDEA T [place] [id number] Insurance:SUMMA WOLAKDOB: [facility] Number: [id number], [place] [id number] Repository 104[address]Gxf: (304) Date:7354-23-76QY [phone] () [address] [address]CR: 07/28/2017 Secondary NOT GIVENUNK [place] Insurance:SELF PAY [facility] Number: Effective Repository Date:2017-01-17 07/26/2017 ORQUIDEA T Primary NOT GIVENUNK [place] [id number] Insurance:[place] Number: Effective Repository [id number]: (304) Date:2017-07-26 [phone] () 07/01/2017 ORQUIDEA T Primary ORQUIDEA T [place] [id number] Insurance:ANTHEMPolic WOLAKDOB: Community [place] y Number: [id number], [place] [id number] Repository 27[address]Xju: (304) Date:0354-63-73WG [phone] () [id number] [place] [address]VM: 07/01/2017 Secondary NOT GIVENUNK [place] Insurance:SELF PAY [facility] Number: Effective Repository Date:2017-07-01 05/27/2017 ORQUIDEA T Primary ORQUIDEA T [place] [id number] Insurance:ANTHEMPolic WOLAKDOB: Community NORMAND[place] y Number: [id number], [place] [id number] Repository [address]Svr: (304) Date:8708-72-04JT [phone] () [place], [place] [address]AD: 05/27/2017 Secondary NOT GIVENUNK [place] Insurance:SELF PAY [facility] Number: Effective Repository Date:2017-05-27 03/30/2017 ORQUIDEA T Primary NOT GIVENUNK [place] [id number] Insurance:[place] Number: Effective Repository [phone]: (304) Date:2017-03-30 [phone] () 03/30/2017 ORQUIDEA T Primary NOT GIVENUNK [place] [id number] Insurance[place] Number: Effective Repository [phone]: (304) Date:2017-03-30 [phone] () 03/30/2017 ORQUIDEA T Primary NOT GIVENUNK [place] [id number] Insurance[place] Number: Effective Repository [phone]: (304) Date:2017-03-30 [phone] () 03/30/2017 ORQUIDEA T Primary NOT GIVENUNK [place] [id number] Insurance[place] Number: Effective Repository [phone]: (304) Date:[phone] ()
== END 2018-02-28 04:18 | disposition home or self-care (01) ==
LOC: ED 03:31
PROVIDERS: Emergency Provider Emergency Medicine; Family Provider Family Medicine; PCP Family Medicine
DX: S20.212A Contusion of left front wall of thorax, initial encounter (principal); M54.9 Dorsalgia, unspecified; R05 Cough; W11.XXXA Fall on and from ladder, initial encounter; Y93.9 Activity, unspecified; Y92.59 Other trade areas as the place of occurrence of the external cause; I25.10 Atherosclerotic heart disease of native coronary artery without angina pectoris; I25.2 Old myocardial infarction; Z95.5 Presence of coronary angioplasty implant and graft; Z79.82 Long term (current) use of aspirin; Z79.899 Other long term (current) drug therapy; Z72.0 Tobacco use
CPT/HCPCS: 71101; 99283

== ENCOUNTER 2018-03-04 02:19 | Emergency (ER) | payer SELFPAY ==
[2017-01-12 13:36] VITALS: BMI 26.6
[2018-03-04 02:19] VITALS: BP 118/77; PULSE 69; RESP 16; TEMP 36.8; O2SAT 96; BMI 24.7
--- NOTE | 2018-03-04 02:35 | ED.VISSUMM ---
- ER Visit Summary Date of Service: 03/04/18 Chief Complaint: Back pain History of Present Illness: The patient is a 52 M who presents with back pain. 5 days ago he was stepping down off of a ladder when he fell and hit his left ribs into the edge of a table. He was seen the next day by myself and had a negative rib series with chest x-ray. He was given a prescription for [place]. He states he has not really been taking this because he does not like the way it makes him feel. He has been taking naproxen with only little relief. He complains of left mid back pain and rib pain which is worse with coughing or twisting to the right. No anterior chest pain. No shortness of breath. No abdominal pain. He states he came back in because he knows that nothing was seen on x-rays but is still concerned that something may be wrong and he was also worried about a possible injury to his kidney. No hematuria. Physical Examination: Afebrile vitals normal No distress Heart regular rate and rhythm Lungs are clear with equal breath sounds Patient has tenderness over the left lower posterior thoracic region Abdomen is soft nontender nondistended No CVA tenderness Test Results: Not indicated Emergency Department Course and Treatment: Patient was concerned about possible kidney injury. I explained that the distribution of his pain is well above his costovertebral angle and above where I expect pain to be from a retroperitoneal/kidney injury. With no abdominal pain or tenderness and normal vitals 5 days after the injury I feel significant intra-abdominal or retroperitoneal injury is very unlikely. I do not believe any further imaging is warranted. He denies any shortness of breath and has equal breath sounds. I have very low clinical suspicion for process such as pneumothorax given the focal area of tenderness in the left posterior thoracic region and recent normal x-rays the day after the fall. Patient declined any repeat x-rays. I explained to the patient that his pain could still be easily explained by chest wall contusion despite negative x-rays. He vocalized understanding. He was given etodolac here for pain as he did not tolerate the opiates well as well as a prescription for the same. He understands to return for new or worsening symptoms. All questions answered bedside. Patient discharged. Treatment Plan: [] Disposition: Discharge Impression: Chest wall contusion This note was generated with [employer] dictation software. It may contain incorrect words, spelling, and punctuation that were not noted in review of the chart prior to signing ED Disposition - Plan for ED Patient: Chief Complaint: Back Referrals: NOT,DEFINED [Primary Care Provider] -
--- NOTE | 2018-03-04 02:41 | ED.DEP ---
ED Disposition - Plan for ED Patient: Chief Complaint: Back Instructions: ED Contusion Chest Wall, ED Contusion Back Prescriptions: Etodolac 400 mg PO Q8H #20 tab Referrals: NOT,DEFINED [Primary Care Provider] -
[2018-03-04 03:00] VITALS: BP 120/70; PULSE 80; RESP 16; O2SAT 99
--- NOTE | 2018-03-04 03:01 | ED.RN ---
PT refused Etodolac pills here. Stating he's been taking Aleve and these are doing nothing for me. Initially refused rx. PT states he is only taking 1/4 o 1/2 norco at a time. He is taking Aleve bid. Educated pt on proper use of pain medication. PT wanted Dr. Bailey to write a new rx for norco. Dr. Bailey declined at this time stating he still has some left from his initial rx and he told both myself and the MD that he was not tolerating the norcos as they gave him an upset stomach. PT did take rx for Etodolac to try. Encouraged PT to f/u with Dr. Lyons or anyone else in that office, even if you can't get in there for days.
== END 2018-03-04 03:11 | disposition home or self-care (01) ==
LOC: ED 02:41
PROVIDERS: Emergency Provider Emergency Medicine; Family Provider Family Medicine; PCP Family Medicine
DX: S20.222A Contusion of left back wall of thorax, initial encounter (principal); W11.XXXA Fall on and from ladder, initial encounter; Y93.9 Activity, unspecified; Y92.9 Unspecified place or not applicable; I25.10 Atherosclerotic heart disease of native coronary artery without angina pectoris; I25.2 Old myocardial infarction; Z95.5 Presence of coronary angioplasty implant and graft; Z79.82 Long term (current) use of aspirin; Z79.899 Other long term (current) drug therapy; Z72.0 Tobacco use
CPT/HCPCS: 99282

== ENCOUNTER 2018-03-10 08:14 | Inpatient (IN) | payer BC, SELFPAY ==
[2017-01-12 13:36] VITALS: BMI 26.6
[2018-03-10] VITALS (13 sets, daily range): BP systolic 107–131; BP diastolic 70–92; PULSE 70–118; RESP 16–26; TEMP 36.2–36.8; O2SAT 93–97; BMI 23.7; BMI 20.1
--- NOTE | 2018-03-10 08:29 | EKG12_ITS ---
Test Reason : CP Blood Pressure : / mmHG Vent. Rate : 126 BPM Atrial Rate : 126 BPM P-R Int : 140 ms QRS Dur : 078 ms QT Int : 306 ms P-R-T Axes : 070 -21 071 degrees QTc Int : 443 ms Sinus tachycardia Possible Left atrial enlargement Nonspecific ST abnormality Abnormal ECG Confirmed by ED VENTURA, GURPREET ([id number]), technical editor ASHLEY SHIELDS ([id number] on 03/14/2018 8:47:01 AM Referred By: Confirmed By:GURPREET WARD MD
--- NOTE | 2018-03-10 08:29 | RAD_ITS ---
STUDY: X-RAY CHEST REASON FOR EXAM: Male, 52 years old. Chest pain. Shortness of breath. Withdrawal symptoms. TECHNIQUE: AP and lateral views of the chest. COMPARISON: Comparison is made with prior examination dated February 11, 2018. FINDINGS: EKG electrodes are seen. Mild degree of increased markings at the lung bases suggestive of atelectasis. There is no demonstrated pleural abnormality. Normal size heart. Normal mediastinum and stephen. Normal visualized pulmonary arteries. Normal visualized aortic arch and descending thoracic aorta. There are degenerative changes of the visualized thoracic spine. Normal visualized ribs, clavicles, and shoulders. There is no demonstrated abnormality of the visualized soft tissue structures of the upper abdomen. RAD/Chest PA and Lateral IMPRESSION: Mild degree of increased markings at the lung bases suggestive of atelectasis. Electronically Signed: Tanner Jiménez MD at 9:24 EST , Service support ,
[2018-03-10] MEDS: LORazepam 2 MG/ML Syringe IV (08:50)
--- NOTE | 2018-03-10 08:53 | ED.VISSUMM ---
- ER Visit Summary Date of Service: 03/10/18 Chief Complaint: Going through withdrawal History of Present Illness: The patient is a 52 M who presents with I am going through withdrawal and I have left-sided chest pain. Patient states last drink 1700 yesterday. He admits to drinking 7 beers a day. Per old records he drinks more than 12. He reports he is only had 3 or 4. He was recently admitted for chest pain and palpitations. He denies fever, chills night sweats. He denies headache, visual, ocular auditory symptoms. The chest pain has been constant since last evening. There are no exacerbating, precipitating or alleviating factors. He does report shortness of breath. He denies orthopnea, PND or dyspnea on exertion. The pain is not pleuritic. He has no history of PE or DVT. He denies leg pain, swelling discoloration. He denies hematemesis, melena hematochezia. He denies any urologic symptoms and denies change in color his urine. Per old records he has a history of coronary disease, hypertension, hypercholesterolemia and alcoholism. He is a smoker. 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 He states he lives alone. Physical Examination: Patient is slightly anxious. Head is atraumatic normocephalic. Pupils are equal round reactive. Extraocular muscles are intact. TMs are pearly white with landmarks noted. Nares patent with no drainage. Posterior pharynx without erythema or exudate. Uvula is midline. There is no dysphonia or dysphasia. Trachea is midline. There is no stridor with auscultation of the neck. Heart is rapid and regular without murmur, gallop or rub. Lungs are clear to auscultation. There is no reproducible chest pain. Abdomen is soft nontender bowel sounds are present normal. There is no fluid wave. There is no asymmetry, swelling, discoloration, leg vein distention, palpable cords or tenderness along the distribution of the deep venous system. He is alert and oriented x3. Motor spiral 5. Sensations intact. DTRs are brisk and there is 6-10 beats of clonus at both ankles. Cranial 2 through 12 are intact. Cerebellar testing is unremarkable other than tremor. Test Results: EKG reveals a sinus tachycardia rate of 126. [place] interval is normal. QRS duration normal. QT interval normal. There is no ossific changes noted most likely secondary to patient's tremors since he is experiencing alcohol withdrawal. CBC is unremarkable. Electric panel reveals a sodium of 132 and chloride of 96 which is unremarkable. CO2 is 20 with an anion gap of 16 which most likely secondary to his chronic alcohol use. Total bilirubin is 1.1. ALT and AST are 102 and 98 secondary to alcohol use. Emergency Department Course and Treatment: IV was established. He received 2 mg of Ativan IV push for alcohol withdrawal. Because there is a history coronary disease with risk factors even though his chest pain is atypical a troponin level was normal. This was obtained with pain greater than 12 hours. Hypertensive panel was obtained to assess electrolytes and evaluate for hyponatremia, renal insufficiency and elevated liver enzymes secondary to alcohol. Alcohol level was obtained to confirm patient has been abstinent for greater than 15 hours. Treatment Plan: IV was established. He initially received 2 mg of Ativan. He had marked improvement his heart rate and heart rate decreased to 70. He became tachycardic again and had tremors. He received additional dose of Ativan, 1 mg IV push. Registration and case management verified patient does have insurance. personal lines sales executive at [facility] was contacted and informed of this since he would qualify for inpatient treatment. Disposition: [facility] for alcohol detox Impression: 1. Alcohol withdrawal 2. Left-sided chest pain noncardiac etiology 3. History coronary disease 4. History of hypertension 5. History of hypercholesterolemia 6. History of tobacco use This note was generated with [employer] software. It may contain incorrect words, spelling, and punctuation that were not noted in review of the chart prior to signing ED Disposition - Plan for ED Patient: Referrals: Kendell Lyons DO [Primary Care Provider] -
[2018-03-10 08:56] LABS: Absolute Lymphocyte Count 1.03 X10^3/ul (0.83-4.51); Absolute Neutrophil Count 8.1 X10^3/uL (2.0-7.7); Basophil# 0.02 X10^3/uL; Basophil% 0.2 % (0-1); Eosinophil# 0.02 X10^3/uL; Eosinophils% 0.2 % (0-5); Hematocrit 47.8 % (40-54); Hemoglobin 17.2 g/dl (13.0-16.5); Lymphocyte # 1.03 X10^3/ul (4.0); Lymphocyte % 10.1 % (19-41); Mean Corpuscular Volume 88.8 fL (80-94); Mean Platelet Vol. 9.8 fl (6.2-12.0); Monocyte# 0.92 X10^3/uL; Monocyte% 9.1 % (0-10); Neutrophil # 8.14 X10^3/uL (2.7-7.7); Neutrophil % 80.2 % (47-70); POSITIVE COUNT NO; POSITIVE DIFFERENTIAL NO; POSITIVE MORPHOLOGY NO; Platelet Count 164 K/mm3 (150-450); RBC Distribution Width CV 14.9 % (11.6-14.6); RBC Distribution Width SD 48.1 fl (35.1-43.9); Red Blood Count 5.38 M/mm3 (4.6-6.2); White Blood Count 10.2 K/mm3 (4.4-11.0)
--- NOTE | 2018-03-10 08:57 | ED.DCSUM_ITS ---
- ER Visit Summary Date of Service: 03/10/18 Chief Complaint: Going through withdrawal History of Present Illness: The patient is a 52 M who presents with I am going through withdrawal and I have left-sided chest pain. Patient states last drink 1700 yesterday. He admits to drinking 7 beers a day. Per old records he drinks more than 12. He reports he is only had 3 or 4. He was recently admitted for chest pain and palpitations. He denies fever, chills night sweats. He denies headache, visual, ocular auditory symptoms. The chest pain has been constant since last evening. There are no exacerbating, precipitating or alleviating factors. He does report shortness of breath. He denies orthopnea, PND or dyspnea on exertion. The pain is not pleuritic. He has no history of PE or DVT. He denies leg pain, swelling discoloration. He denies hematemesis, melena hematochezia. He denies any urologic symptoms and denies change in color his urine. Per old records he has a history of coronary disease, hypertension, hypercholesterolemia and alcoholism. He is a smoker. 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 Physical Examination: Patient is slightly anxious. Head is atraumatic normocephalic. Pupils are equal round reactive. Extraocular muscles are intact. TMs are pearly white with landmarks noted. Nares patent with no drainage. Posterior pharynx without erythema or exudate. Uvula is midline. There is no dysphonia or dysphasia. Trachea is midline. There is no stridor with auscultation of the neck. Heart is rapid and regular without murmur, gallop or rub. Lungs are clear to auscultation. There is no reproducible chest pain. Abdomen is soft nontender bowel sounds are present normal. There is no fluid wave. There is no asymmetry, swelling, discoloration, leg vein distention, palpable cords or tenderness along the distribution of the deep venous system. He is alert and oriented x3. Motor spiral 5. Sensations intact. DTRs are brisk and there is 6-10 beats of clonus at both ankles. Cranial 2 through 12 are intact. Cerebellar testing is unremarkable other than tremor. Test Results: EKG reveals a sinus tachycardia rate of 126. [place] interval is normal. QRS duration normal. QT interval normal. There is no ossific changes noted most likely secondary to patient's tremors since he is experiencing alcohol withdrawal. CBC is unremarkable. Electric panel reveals a sodium of 132 and chloride of 96 which is unremarkable. CO2 is 20 with an anion gap of 16 which most likely secondary to his chronic alcohol use. Total bilirubin is 1.1. ALT and AST are 102 and 98 secondary to alcohol use. Emergency Department Course and Treatment: IV was established. He received 2 mg of Ativan IV push for alcohol withdrawal. Because there is a history coronary disease with risk factors even though his chest pain is atypical a troponin level was normal. This was obtained with pain greater than 12 hours. Hypertensive panel was obtained to assess electrolytes and evaluate for hyponatremia, renal insufficiency and elevated liver enzymes secondary to alcohol. Alcohol level was obtained to confirm patient has been abstinent for greater than 15 hours. Treatment Plan: IV was established. He initially received 2 mg of Ativan. He had marked improvement his heart rate and heart rate decreased to 70. He became tachycardic again and had tremors. He received additional dose of Ativan, 1 mg IV push. Registration and case management verified patient does have insurance. personal assistant at [facility] was contacted and informed of this since he would qualify for inpatient treatment. Disposition: [facility] for alcohol detox Impression: 1. Alcohol withdrawal 2. Left-sided chest pain noncardiac etiology 3. History coronary disease 4. History of hypertension 5. History of hypercholesterolemia 6. History of tobacco use This note was generated with [employer]ation software. It may contain incorrect words, spelling, and punctuation that were not noted in review of the chart prior to signing ED Disposition - Plan for ED Patient: Referrals: Kendell Lyons DO [Primary Care Provider] -
[2018-03-10 09:36] LABS: AST(SGOT) 98 U/L (15-37); Alanine Aminotransfer ALT/SGPT 102 U/L (16-61); Albumin, Serum 3.8 g/dL (3.2-5.0); Alkaline Phosphatase 93 U/L (45-117); Anion Gap 16 (5-15); BUN 6 mg/dL (7-18); BUN/Creat Ratio 6.6 RATIO (10-20); Calcium,Total 8.8 mg/dL (8.5-10.1); Chloride 96 mmol/L (98-107); EST Glomerular Filtration Rate 94 mL/min (>60); Est Glom Filt Rate - Afr Amer 113 mL/min (>60); Estimated Creatinine Clearance 114.75 ml/min; Globulin 3.7 g/dL (2.2-4.2); Glucose 96 mg/dL (74-106); Potassium 4.4 mmol/L (3.5-5.1); Protein, Total 7.5 g/dL (6.4-8.2); Sodium Level 132 mmol/L (136-145)
[2018-03-10] MEDS: LORazepam 2 MG/ML Syringe 1 MG IV (10:27)
--- NOTE | 2018-03-10 11:20 | CM.ED ---
Social Work Note Face to face with pt and introduced self and role at [facility]. Pt presented to ED in withdrawals and is seeking treatment. He is agreeable to [facility] and denies having utilized their program in the past. Pt does report to have gone through treatment approximately 1 year ago in [place]. Registration did verify that he has [employer] insurance and [facility] is to be consulted. Educate pt to [facility] as an option for aftercare upon discharge from [facility]. Inform that [facility] will assist with this, but they are a local agency that could provide aftercare. Understanding expressed and pt receptive to information. PLAN: [facility] to evaluate for admission. Mary Ro, GEOLOGICAL SAMPLE TESTER, SLEEP TECHNICIAN
--- NOTE | 2018-03-10 11:49 | HP.PCM_ITS ---
Problem List (1) Acute, mixed level of activity, alcohol withdrawal delirium Status: Acute (2) Chest pain Status: Acute Qualifiers: Chest pain type: unspecified Qualified Code(s): R07.9 - Chest pain, unspecified (3) CAD (coronary artery disease) Status: Chronic Qualifiers: Coronary Disease-Associated Artery/Lesion type: unspecified vessel or lesion type [place] vs. transplanted heart: unspecified whether [place] or transplanted heart Associated angina: angina presence unspecified Qualified Code(s): I25.10 - Atherosclerotic heart disease of [place] coronary artery without angina pectoris (4) HTN (hypertension) Status: Chronic Qualifiers: Hypertension type: essential hypertension Qualified Code(s): I10 - Essential (primary) hypertension (5) HLD (hyperlipidemia) Status: Chronic Qualifiers: Hyperlipidemia type: unspecified Qualified Code(s): E78.5 - Hyperlipidemia, unspecified (6) Tobacco use Status: Chronic (7) Alcohol abuse Status: Chronic (8) History of coronary artery stent placement Status: Chronic Comment: BMS-Prox and Distal RCA 12/23/16 History of Present Illness Date of Admission: 03/10/18 Chief Complaint: Chest pain, Acute EtOH Withdrawal The patient is a 52 y/o M w/ PMHx: CAD s/p PCI x 2, HTN, HLD, Tobacco use, Anxiety, EtOH Abuse with 4-10 beers daily with most recent usage 03/09/18 5 pm 4 beers at that time with onset following nausea, emesis, tremors, agitation in addition to history ~ 1 week prior fall off his ladder x 2 steps, landing on his left lateral chest with discomfort following but noted improvement with onset the evening prior severe, sharp and squeezing, 10/10, constant, non-radiating chest pain, of note following his bouts of emesis without any improvement. In the ED upon evaluation L sided chest discomfort reproducible. Patient did have dyspnea, nausea, emesis with the chest pain events but again in the setting of acute EtOH withdrawal. Work-up in the ED included T 97.2, heart rate 115, BP 131/91, respiratory rate 20, 93% on room air, CBC with WBC 10.1, heme globin 17.2, platelet 164 with left shift, CMP with sodium 132, chloride 96,, dioxide 20, anion gap 16, BUN/Cr 6/0.90, T Bili 1.10, AST/ALT 98/102, trop < 0.015, chest x-ray with mild degree of increased markings at the lung bases suggestive of atelectasis. In the ED patient administered a total of 3 mg IV Ativan. Past Medical History Past Medical History (Chronic Problems): Chronic Problems (Last Reviewed 01/04/18 @ 16:19 by Socrates Monte MD) CAD (coronary artery disease) (Chronic) HTN (hypertension) (Chronic) HLD (hyperlipidemia) (Chronic) Tobacco use (Chronic) Alcohol abuse (Chronic) Atherosclerosis of coronary artery of [place] heart with angina pectoris (Chronic) BMS-Prox and Distal RCA 12/23/16 History of coronary artery stent placement (Chronic 12/23/16) BMS-Prox and Distal RCA 12/23/16 Smoking addiction (Chronic) Anxiety (Chronic) Noncompliance (Chronic) Medical History: Medical History (Last Reviewed 01/04/18 @ 16:19 by Socrates Monte MD) Atherosclerosis of coronary artery of [place] heart with angina pectoris (Chronic) I25.119 BMS-Prox and Distal RCA 12/23/16 Smoking addiction (Chronic) F17.200 Anxiety (Chronic) F41.9 Noncompliance (Chronic) Z91.19 STEMI (ST elevation myocardial infarction) (Resolved) 12/23/16 STEMI (ST elevation myocardial infarction) I21.3 12/23/16 Allergies No Known Allergies Allergy (Verified 03/10/18 08:17) Home Medications: Ambulatory Orders Medication Instructions Recorded ALPRAZolam [Xanax] 1 - 2 mg PO QHS PRN 05/27/17 Fluoxetine [Prozac] 20 mg PO DAILY 05/27/17 Aspirin [Aspirin, Baby] 81 mg PO DAILY@0800 10/03/17 atorvastatin 20 mg tablet 20 mg PO DAILY #90 tab 01/04/18 clopidogrel 75 mg tablet 75 mg PO DAILY #90 tab 01/04/18 metoprolol succinate ER 25 mg 25 mg PO DAILY #90 tab 01/04/18 tablet,extended release 24 hr Etodolac 400 mg PO Q8H #20 tab 03/04/18 Hydrocodone/Acetaminophen 5 mg PO Q6H PRN PRN 03/04/18 [Hydrocodone-Acetamin 5-325 mg] Surgical History: Surgical History (Last Reviewed 01/04/18 @ 16:19 by Socrates Monte MD) History of coronary artery stent placement (Resolved) Onset Date: 12/23/16 Z95.5 BMS-Prox and Distal RCA 12/23/16 History of left heart catheterization Z98.890 12/23/16- PCI with BM stent to prox RCA & distal RCA; 01/12/17- patent BM stents; Surgical History: - - PCI x 2, T+A, L inguinal hernia repair. Psychiatric History: Anxiety, Depression Lives: Alone Smoking Status: Current every day smoker - Currently 1/2 ppd, prior 1 ppd since teenager, only recently cut down. Tobacco Use: Cigarettes Alcohol: Heavy - 4-10, 12 ounce beers daily, denies any hard liquor intake. Drugs: None - *Family History Sibling Family History: Family History (Last Reviewed 01/04/18 @ 16:19 by Socrates Monte MD) Father Myocardial infarction, Onset Age: 36 Mother Myocardial infarction Cancer History Items: - - Patient notes a history of a sister who underwent a CABG early in life. Maternal Family History: Family History (Last Reviewed 01/04/18 @ 16:19 by Socrates Monte MD) Father Myocardial infarction, Onset Age: 36 Mother Myocardial infarction Cancer History Items: - - Patient notes a maternal family history of coronary disease with at least 6 stents during her lifetime. Paternal Family History: Family History (Last Reviewed 01/04/18 @ 16:19 by Socrates Monte MD) Father Myocardial infarction, Onset Age: 36 Mother Myocardial infarction Cancer History Items: - - Patient notes a paternal family history of heart disease, passing secondary to fatal NE at age 36. Review of Systems Constitutional: Reports: Anorexia, Malaise, Weakness, Fatigue. Denies: Chills, Fever, Weight Change HEENT: Denies: Head Aches, Sinus Congestion, Sinus Drainage Cardiovascular: Reports: Chest Pain, Chest Tightness. Denies: Edema, Heaviness, Light Headedness, Orthopnea, Palpitations, Syncope Respiratory: Reports: Shortness of Breath. Denies: Cough, Shortness of breath at rest, Sputum production, Wheezing Gastrointestinal: Reports: Nausea, Vomiting. Denies: Abdominal Pain Genitourinary: Denies: Dysuria Musculoskeletal: Reports: Back Pain, Joint Pain. Denies: Joint Tenderness Skin: Denies: Rash, Wounds Neurological: Reports: Tremor. Denies: Focal weakness, Numbness, Tingling Psychiatric: Reports: Anxiety, Depression. Denies: Homicidal Ideations, Suicidal Ideations Hematologic/ Lymphatic: Reports: Easy Bruising, Easy Bleeding VTE Information - Inpt Only VTE Present on Admission: No VTE Mechan Device Prophylaxis: SCD's VTE Pharm Prophylaxis ordered?: Yes Patient Problems: Active and Suspected Problems (Last Reviewed 01/04/18 @ 16:19 by Socrates Monte MD) Acute, mixed level of activity, alcohol withdrawal delirium (Acute) Subjective: Seated upright in the ED bed, tremulous, fatigued appearance, notes ongoing chest pain L sided. Objective: Physical Examination: General: awake, alert, oriented x 3 and cooperative, seated upright in the ED bed, tremulous, fatigued, anxious, evidence withdrawal. Skin: normal color, turgor, no icterus, cyanosis occasional extremity ecchymoses, status post recent fall with left-sided chest discomfort, reproducible pain. HEENT: AT/NC, EOMI, PERRLA, dry MM, no carotid bruits or JVD noted. Lungs: Diminished BS BL, > bases, mild effort, TTP L sided chest, no rales, ronchi or wheezing. Heart: Mildly tachycardic with regular rhythm; no gallop, rub audible. Abdomen: soft, NTTP, ND, normal BS, + HM. Extremities: no cyanosis, clubbing, mild BL ankle edema nonpitting. Neurological: patient awake, alert, oriented x 3; cognitive function not baseline intact secondary to acute EtOH withdrawal; pupils equally reactive to light and accomodation; cranial nerves II-XII grossly normal, moving all 4 extremities, anxious, moving, tremulous, no focal deficits, strength moderately to severely globally decreased secondary to acute presentation. Psychiatric: affect appears fatigued, anxious, mildly agitated, no acute evidence of depressive feelings. - Physical Exam Vital Signs Temp Pulse Resp BP Pulse Ox 97.2 F L 115 H 20 H 131/91 H 93 03/10/18 08:15 03/10/18 11:35 03/10/18 11:35 03/10/18 11:35 03/10/18 11:35 Oxygen Delivery Method Room Air Weight: 190 lb Body Mass Index (BMI) 23.7 Laboratory Tests Past 24 Hrs 03/10/18 03/10/18 03/10/18 08:52 08:52 08:52 WBC 10.2 RBC 5.38 Hgb 17.2 H Hct 47.8 MCV 88.8 MCH 32.0 MCHC 36.0 RDW 14.9 H RDW Differential 48.1 H Plt Count 164 MPV 9.8 Immature Gran % (Auto) 0.200 Neut % (Auto) 80.2 H Lymph % (Auto) 10.1 L [place] % (Auto) 9.1 Eos % (Auto) 0.2 Baso % (Auto) 0.2 Absolute Neuts (auto) 8.1 H Absolute Lymphs (auto) 1.03 Total Counted Not Reportable Sodium Cancelled Potassium Cancelled Chloride Cancelled Carbon Dioxide Cancelled Anion Gap Cancelled BUN Cancelled Creatinine Cancelled Estim Creat Clear Calc Cancelled Est GFR (MDRD) Af Amer Cancelled Est GFR (MDRD) Non-Af Cancelled BUN/Creatinine Ratio Cancelled Glucose Cancelled Calcium Cancelled Total Bilirubin Cancelled AST Cancelled ALT Cancelled Alkaline Phosphatase Cancelled Troponin I Cancelled Total Protein Cancelled Albumin Cancelled Globulin Cancelled Albumin/Globulin Ratio Cancelled Ethyl Alcohol Cancelled 03/10/18 03/10/18 09:10 09:10 WBC RBC Hgb Hct MCV MCH MCHC RDW RDW Differential Plt Count MPV Immature Gran % (Auto) Neut % (Auto) Lymph % (Auto) [place] % (Auto) Eos % (Auto) Baso % (Auto) Absolute Neuts (auto) Absolute Lymphs (auto) Total Counted Sodium 132 L Potassium 4.4 Chloride 96 L Carbon Dioxide 20.0 L Anion Gap 16 H BUN 6 L Creatinine 0.90 Estim Creat Clear Calc 114.75 Est GFR (MDRD) Af Amer 113 Est GFR (MDRD) Non-Af 94 BUN/Creatinine Ratio 6.6 L Glucose 96 Calcium 8.8 Total Bilirubin 1.10 H AST 98 H ALT 102 H Alkaline Phosphatase 93 Troponin I < 0.015 Total Protein 7.5 Albumin 3.8 Globulin 3.7 Albumin/Globulin Ratio 1.0 Ethyl Alcohol 10.0 Assessment/Plan All Active Problems (Last Reviewed 01/04/18 @ 16:19 by Socrates Monte MD) Acute, mixed level of activity, alcohol withdrawal delirium (Acute) Intermittent palpitations (Acute) Chest pain (Acute) STEMI (ST elevation myocardial infarction) (Resolved) The patient is a 52 y/o M w/ PMHx: CAD s/p PCI x 2, HTN, HLD, Tobacco use, Anxiety, EtOH Abuse with 4-10 beers daily with most recent usage 03/09/18 5 pm 4 beers at that time with onset following nausea, emesis, tremors, agitation in addition to history ~ 1 week prior fall off his ladder x 2 steps, landing on his left lateral chest with discomfort following but noted improvement with onset the evening prior severe, sharp and squeezing, 10/10, constant, non-radiating chest pain, of note following his bouts of emesis without any improvement. (1) Acute EtOH Withdrawal: Will admit to PCU on telemetry given CAD history with CP although likely secondary to recent fall and recent emesis with muscle strain, obtain routine labs including CBC, CMP, urine for drug screen, urinalysis, serum lipase, routine EKG and will initiate and continue on [facility] service protocol with taper course of librium, as needed Seroquel, Catapres, Bentyl, Vistaril, IV fluids, IV antiemetics, Tylenol as needed for pain. Once patient clinically improved and completion of taper nearing will plan [facility] assistance for transition to next level of rehabilitation care. Mag, phos pending. Maintain on CIWA protocol. (2) Chest Pain, Atypical: EKG in ED with no acute evidence of ischemia, CXR w/ with no acute cardiopulmonary process, initial trop normal x 1. Patient w/ CAD history with CP although likely secondary to recent fall and recent emesis with muscle strain. To be cautious, will place on a monitored bed to assure no acute myocardial infarction with serial cardiac enzymes and EKGs. ASA, NG, morphine. (3) Elevated LFTs, Chronic: Associated w/ EtOH Abuse history, admission AST/ALT 98/102, similar to prior, will hydrate, treat acute withdrawal and repeat CMP in AM. (4) CAD: s/p PCI BMS-Prox and Distal RCA 12/23/16, s/p STEMI, follows w/ Dr. Monte although from records non-compliance noted. Will continue home regimen asa, plavix, statin, BB. (5) Hypertension: Continue home regimen including metoprolol, PRN hydralazine. (6) Hyperlipidemia: Continue home statin regimen. AM FLP. (7) Anxiety and Depression: Continue home prozac regimen. Will hold q HS ativan given librium and PRN ativan usage as noted. (8) Tobacco Abuse: Encouraged cessation, inpatient consultation per RT, NR if desired. (9) DVT Prophylaxis: SCDs, lovenox. Code Visit Inpatient E&M: 14649 Init Hosp L3
--- NOTE | 2018-03-10 12:36 | EKG12_ITS ---
Test Reason : CP ADMIT Blood Pressure : / mmHG Vent. Rate : 110 BPM Atrial Rate : 110 BPM P-R Int : 138 ms QRS Dur : 084 ms QT Int : 322 ms P-R-T Axes : 065 -03 067 degrees QTc Int : 435 ms Sinus tachycardia Otherwise normal ECG When compared with ECG of 11-FEB-2018 11:11, Premature ventricular complexes are no longer Present Questionable change in QRS axis T wave inversion no longer evident in Inferior leads Confirmed by ED VENTURA, GURPREET ([id number]), sales representative advertising ASHLEY SHIELDS ([id number]) on 03/14/2018 8:57:05 AM Referred By: OCTAVIO Confirmed By:GURPREET WARD MD
--- NOTE | 2018-03-10 13:12 | NEWVISION ---
[facility] Anodize Machine Operator met with patient in the emergency department regarding alcohol withdrawal. Patient was admitted to PCU for chest pain as primary and alcoholic withdrawal as a secondary. Anodize Machine Operator gave patient resources to inpatient and outpatient facilities in [facility] as well as surrounding counties to follow up with post discharge.
[2018-03-10 13:14] LABS: Magnesium 1.9 mg/dL (1.6-2.6)
[2018-03-10] MEDS: chlordiazePOXIDE 25 MG Capsule PO ×3 (13:44→23:10)
[2018-03-10] MEDS: 0.9% Normal Saline 1,000 ML 125 ML IV ×2 (13:46→22:14)
[2018-03-10] MEDS: Etodolac 200 MG Capsule 400 MG PO ×2 (13:46→23:09)
[2018-03-10] MEDS: traZODone 50 MG Tablet PO (23:09)
[2018-03-10] MEDS: Famotidine 20 MG Tablet PO (23:09)
[2018-03-10] MEDS: Atorvastatin Calcium 20 MG Tablet PO (23:09)
[2018-03-10] MEDS: HYDROcodone Bitartrate/Apap 5/325 Tablet PO (23:12)
[2018-03-11] VITALS (15 sets, daily range): BP systolic 103–127; BP diastolic 66–85; PULSE 70–99; RESP 16–20; TEMP 36.6–37; O2SAT 94–97
[2018-03-11] MEDS: Etodolac 200 MG Capsule 400 MG PO ×3 (05:37→21:12)
[2018-03-11] MEDS: 0.9% Normal Saline 1,000 ML 125 ML IV (05:37)
[2018-03-11] MEDS: chlordiazePOXIDE 25 MG Capsule PO ×2 (05:38→15:23)
--- NOTE | 2018-03-11 05:55 | EKG12_ITS ---
Test Reason : Blood Pressure : / mmHG Vent. Rate : 068 BPM Atrial Rate : 068 BPM P-R Int : 154 ms QRS Dur : 090 ms QT Int : 418 ms P-R-T Axes : 029 -06 047 degrees QTc Int : 444 ms Normal sinus rhythm Voltage criteria for left ventricular hypertrophy Abnormal ECG When compared with ECG of 10-MAR-2018 13:08, MANUAL COMPARISON REQUIRED, DATA IS UNCONFIRMED Confirmed by ED VENTURA, GURPREET ([id number]), supervising film or videotape editor ASHLEY SHIELDS ([id number]) on 03/15/2018 2:15:59 PM Referred By: Confirmed By:GURPREET WARD MD
[2018-03-11 06:30] LABS: Absolute Lymphocyte Count 1.57 X10^3/ul (0.83-4.51); Absolute Neutrophil Count 3.1 X10^3/uL (2.0-7.7); Basophil# 0.02 X10^3/uL; Basophil% 0.4 % (0-1); Eosinophil# 0.14 X10^3/uL; Eosinophils% 2.5 % (0-5); Hemoglobin 13.6 g/dl (13.0-16.5); Lymphocyte # 1.57 X10^3/ul (4.0); Mean Corpuscular Hgb 31.6 pg (27.0-32.0); Mean Corpuscular Volume 92.8 fL (80-94); Mean Platelet Vol. 9.8 fl (6.2-12.0); Monocyte# 0.74 X10^3/uL; Monocyte% 13.2 % (0-10); Neutrophil # 3.12 X10^3/uL (2.7-7.7); Neutrophil % 55.5 % (47-70); Platelet Count 132 K/mm3 (150-450); RBC Distribution Width CV 15.3 % (11.6-14.6); RBC Distribution Width SD 51.9 fl (35.1-43.9); Red Blood Count 4.31 M/mm3 (4.6-6.2); White Blood Count 5.6 K/mm3 (4.4-11.0)
[2018-03-11 06:31] LABS: POSITIVE COUNT NO; POSITIVE DIFFERENTIAL NO; POSITIVE MORPHOLOGY NO
[2018-03-11 07:26] LABS: AST(SGOT) 61 U/L (15-37); Alanine Aminotransfer ALT/SGPT 78 U/L (16-61); Albumin, Serum 2.9 g/dL (3.2-5.0); Alkaline Phosphatase 74 U/L (45-117); Anion Gap 9 (5-15); BUN 13 mg/dL (7-18); BUN/Creat Ratio 15.6 RATIO (10-20); Calcium,Total 8.2 mg/dL (8.5-10.1); Chloride 104 mmol/L (98-107); Cholesterol 105 mg/dL (200); Creatinine, Serum 0.84 mg/dL (0.70-1.30); EST Glomerular Filtration Rate 103 mL/min (>60); Est Glom Filt Rate - Afr Amer 124 mL/min (>60); Estimated Creatinine Clearance 111.16 ml/min; Globulin 2.9 g/dL (2.2-4.2); Glucose 79 mg/dL (74-106); High Density Lipoprotein 64 mg/dL; Potassium 3.9 mmol/L (3.5-5.1); Protein, Total 5.8 g/dL (6.4-8.2); Sodium Level 140 mmol/L (136-145); Triglycerides 65 mg/dL; Very Low Density Lipoprotein 13 mg/dL (5-40)
[2018-03-11] MEDS: FLUoxetine 20 MG Capsule PO ×2 (08:43)
[2018-03-11] MEDS: Multivitamins,Therapeutic Tablet 1 TABLET PO (08:43)
[2018-03-11] MEDS: Aspirin 81 MG TAB.CHEW PO (08:44)
[2018-03-11] MEDS: Folic Acid 1 MG Tablet PO (08:44)
[2018-03-11] MEDS: Thiamine Hydrochloride 100 MG Tablet PO (08:45)
[2018-03-11] MEDS: Famotidine 20 MG Tablet PO ×2 (08:45→21:12)
[2018-03-11] MEDS: Metoprolol(XL)Succ 25 MG Tablet PO (08:46)
[2018-03-11] MEDS: Clopidogrel Bisulfate 75 MG Tablet PO (08:46)
--- NOTE | 2018-03-11 09:08 | NURSING ---
report called to [facility]
[2018-03-11] MEDS: hydrOXYzine PAM 25 MG Capsule 50 MG PO (09:43)
[2018-03-11] MEDS: Methocarbamol 750 MG Tablet PO ×2 (09:43→16:00)
[2018-03-11] MEDS: QUEtiapine 25 MG Tablet PO ×2 (09:43→21:12)
[2018-03-11] MEDS: Dicyclomine 10 MG Capsule 20 MG PO ×2 (09:43→16:00)
--- NOTE | 2018-03-11 09:48 | PCM.PN.HOSP ---
Patient Problems: Active and Suspected Problems (Last Reviewed 01/04/18 @ 16:19 by Socrates Monte MD) Acute, mixed level of activity, alcohol withdrawal delirium (Acute) Subjective: Overnight patient with stable left-sided more musculoskeletal chest discomfort with serial cardiac enzymes which remained negative and no events on telemetry with notable improvement of alcohol withdrawal symptoms, less tremulous this morning, able to move about his room, less weak, less agitated. Discussed chest discomfort likely musculoskeletal with recent fall and given patient evaluation unremarkable to this point with improved withdrawal symptoms plan to transition to medical surgical floor to which patient is amenable. Patient denies fevers, chills, nausea, emesis, abdominal pain or dyspnea. Objective: Physical Examination: General: awake, alert, oriented x 3 and cooperative, walking in his room, more well appearing, notes withdrawal symptoms notably improved. Skin: normal color, turgor, no icterus, cyanosis occasional extremity ecchymoses, status post recent fall with left-sided chest discomfort, reproducible pain. HEENT: AT/NC, EOMI, PERRLA, improved MMM. Lungs: Diminished BS BL, > bases, mild effort, still mildly TTP L sided chest, no rales, ronchi or wheezing. Heart: Regular rate with regular rhythm; no gallop, rub audible. Abdomen: soft, NTTP, ND, normal BS. Extremities: no cyanosis, clubbing, mild BL ankle edema nonpitting. Neurological: patient awake, alert, oriented x 3; cognitive function appears improved, suspect near baseline intact; pupils equally reactive to light and accomodation; cranial nerves II-XII grossly normal, moving all 4 extremities, less tremulous, does not appear anxious, no focal deficits, strength improved, mildly to moderately globally decreased. Psychiatric: affect appears improved, less tremulous, not anxious, no acute evidence of depressive feelings. Vitals/I&O's: Vital Signs Temp Pulse Resp BP Pulse Ox 98 F 90 20 H 106/66 96 03/11/18 08:39 03/11/18 08:46 03/11/18 08:39 03/11/18 08:39 03/11/18 08:39 Oxygen Delivery Method Room Air Weight: 168 lb 6.931 oz Body Mass Index (BMI) 20.0 Intake and Output for Last 24 Hours 03/09/18 03/10/18 03/11/18 23:59 23:59 23:59 Intake Total 240 / 240 1979 Balance 240 / 240 1979 Laboratory Results 03/10/18 09:10: Ethyl Alcohol 10.0 03/10/18 12:45: Phosphorus 5.0 H, Magnesium 1.9, Troponin I < 0.015 03/10/18 22:40: Troponin I 0.022 03/11/18 06:16: WBC 5.6, RBC 4.31 L, Hgb 13.6, Hct 40.0, MCV 92.8, MCH 31.6, MCHC 34.0, RDW 15.3 H, RDW Differential 51.9 H, Plt Count 132 L, MPV 9.8, Immature Gran % (Auto) 0.400, Neut % (Auto) 55.5, Lymph % (Auto) 28.0, [place] % (Auto) 13.2 H, Eos % (Auto) 2.5, Baso % (Auto) 0.4, Absolute Neuts (auto) 3.1, Absolute Lymphs (auto) 1.57, Total Counted Not Reportable 03/11/18 06:16: Sodium 140, Potassium 3.9, Chloride 104, Carbon Dioxide 27.0, Anion Gap 9, BUN 13, Creatinine 0.84, Estim Creat Clear Calc 111.16, Est GFR (MDRD) Af Amer 124, Est GFR (MDRD) Non-Af 103, BUN/Creatinine Ratio 15.6, Glucose 79, Calcium 8.2 L, Total Bilirubin 1.30 H, AST 61 H, ALT 78 H, Alkaline Phosphatase 74, Total Protein 5.8 L, Albumin 2.9 L, Globulin 2.9, Albumin/Globulin Ratio 1.0, Triglycerides 65, Cholesterol 105, LDL Cholesterol 28, VLDL Cholesterol 13, HDL Cholesterol 64 Current Medications Acetaminophen (Tylenol) 650 mg PO Q6H PRN PRN PRN Reason: Non-cardiac pain (mod-severe) Acetaminophen (Tylenol) 500 mg PO Q4H PRN PRN PRN Reason: Temp > 100.4 F Hydrocodone Bitart/Acetaminophen ([place] 5mg-325mg) 1 tablet PO Q6H PRN PRN PRN Reason: PAIN Last Admin: 03/10/18 23:12 Dose: 1 tablet Al Hydroxide/Mg Hydroxide (Mylanta Ii) 30 ml PO Q6H PRN PRN PRN Reason: dyspesia Aspirin (Aspirin, Baby) 81 mg PO DAILY@0800 [facility] Last Admin: 03/11/18 08:44 Dose: 81 mg Atorvastatin Calcium (Lipitor) 20 mg PO QHS [facility] Last Admin: 03/10/18 23:09 Dose: 20 mg Bisacodyl (Dulcolax) 10 mg RECTAL DAILY PRN PRN Reason: Constipation Chlordiazepoxide (Librium) 50 mg PO Q8H [facility]; Taper Stop: 03/13/18 15:59 Last Admin: 03/11/18 05:38 Dose: 50 mg Clopidogrel Bisulfate (Plavix) 75 mg PO DAILY [facility] Last Admin: 03/11/18 08:46 Dose: 75 mg Dicyclomine HCl (Bentyl) 20 mg PO Q6H PRN PRN PRN Reason: abdominal discomfort Last Admin: 03/11/18 09:43 Dose: 20 mg Enoxaparin Sodium (Lovenox) 40 mg SC DAILY@1000 [facility] Last Admin: 03/11/18 08:47 Dose: Not Given Etodolac (Lodine) 400 mg PO Q8 [facility] Last Admin: 03/11/18 05:37 Dose: 400 mg Famotidine (Pepcid) 20 mg PO BID [facility] Last Admin: 03/11/18 08:45 Dose: 20 mg Fluoxetine HCl (Prozac) 20 mg PO DAILY [facility] Last Admin: 03/11/18 08:43 Dose: 20 mg Folic Acid (Folic Acid) 1 mg PO DAILYCM [facility] Last Admin: 03/11/18 08:44 Dose: 1 mg Hydralazine HCl (Apresoline Iv) 10 mg IV Q4H PRN PRN PRN Reason: SBP > 160 Hydroxyzine Pamoate (Vistaril Pamoate Capsule) 50 mg PO Q6H PRN PRN PRN Reason: Mild Anxiety (score 1/3) Last Admin: 03/11/18 09:43 Dose: 50 mg Sodium Chloride () 1,000 mls @ 125 mls/hr IV .Q8H [facility] Last Admin: 03/11/18 05:37 Dose: 125 mls/hr Loperamide HCl (Imodium) 2 - 4 mg PO UD PRN PRN Reason: LOOSE STOOLS Lorazepam (Ativan) 1 mg IV Q4H PRN PRN PRN Reason: Severe Anxiety Lorazepam (Ativan) 2 mg IV X1 PRN PRN Reason: Seizure Magnesium Hydroxide (Milk Of Magnesia) 30 ml PO DAILY PRN PRN Reason: Constipation Methocarbamol (Methocarbamol) 750 mg PO Q6H PRN PRN PRN Reason: Muscle Aches Last Admin: 03/11/18 09:43 Dose: 750 mg Metoprolol Succinate (Toprol Xl (Beta Levon)) 25 mg PO DAILY [facility] Last Admin: 03/11/18 08:46 Dose: 25 mg Morphine Sulfate () 1 - 2 mg IV Q4H PRN PRN PRN Reason: PAIN [facility]ivit[facility] ([facility]ivitamin) [facility] Last Admin: 03/11/18 08:43 Dose: 1 tablet Nicotine (Nicoderm Cq (Pbkc)) 14 mg TRANSDERM. DAILY [facility] Last Admin: 03/11/18 08:48 Dose: 14 mg Nitroglycerin (Nitrostat) 0.4 mg SUBLINGUAL Q5M PRN PRN Reason: Angina pain Nutritional Formula (Lactose Free) (Ensure Enlive) 120 ml PO 4X/DAY [facility] Last Admin: 03/11/18 08:44 Dose: Not Given Ondansetron HCl (Zofran) 4 mg IV Q8H PRN PRN PRN Reason: NAUSEA/VOMITING Ondansetron HCl (Zofran Odt) 4 mg PO Q6H PRN PRN PRN Reason: NAUSEA Quetiapine Fumarate (Seroquel) 25 mg PO Q6H PRN PRN PRN Reason: agitation, anxiety Last Admin: 03/11/18 09:43 Dose: 25 mg Senna (Senokot) 1 tablet PO QHS PRN PRN Reason: Constipation Sodium Chloride () 5 - 15 ml IV UD PRN PRN Reason: SALINE FLUSH Thiamine HCl (Vitamin B1) [facility] Last Admin: 03/11/18 08:45 Dose: 100 mg Trazodone HCl (Desyrel) 50 mg PO QHS [facility] Last Admin: 03/10/18 23:09 Dose: 50 mg Medical Necessity - Tobacco Use Smoking Status: Current every day smoker - Currently 1/2 ppd, prior 1 ppd since teenager, only recently cut down. Tobacco Use: Cigarettes Assessment/Plan All Active Problems (Last Reviewed 01/04/18 @ 16:19 by Socrates Monte MD) Acute, mixed level of activity, alcohol withdrawal delirium (Acute) Intermittent palpitations (Acute) Chest pain (Acute) STEMI (ST elevation myocardial infarction) (Resolved) The patient is a 52 y/o M w/ PMHx: CAD s/p PCI x 2, HTN, HLD, Tobacco use, Anxiety, EtOH Abuse with 4-10 beers daily with most recent usage 03/09/18 5 pm 4 beers at that time with onset following nausea, emesis, tremors, agitation in addition to history ~ 1 week prior fall off his ladder x 2 steps, landing on his left lateral chest with discomfort following but noted improvement with onset the evening prior severe, sharp and squeezing, 10/10, constant, non-radiating chest pain, of note following his bouts of emesis without any improvement. (1) Acute EtOH Withdrawal: Admitted to the PCU initially on telemetry given CAD history with CP although likely secondary to recent fall and recent emesis with muscle strain, obtained routine labs including CBC, CMP, urine for drug screen, urinalysis, serum lipase, initiated and continue on [facility] service protocol with taper course of librium, as needed Seroquel, Catapres, Bentyl, Vistaril, IV fluids, IV antiemetics, Tylenol as needed for pain. Once patient clinically improved and completion of taper nearing will plan [facility] assistance for transition to next level of rehabilitation care. Mag, phos obtained, not decreased. Maintain on CIWA protocol. Given clinical improvement, transitioning to [place]. (2) Chest Pain, Atypical: EKG in ED with no acute evidence of ischemia, CXR w/ with no acute cardiopulmonary process, initial trop normal x 1. Patient w/ CAD history with CP although likely secondary to recent fall and recent emesis with muscle strain. To be cautious, placed on a monitored bed to assure no acute myocardial infarction with serial cardiac enzymes and EKGs which remained unremarkable. Given likely musculoskeletal etiology, reproducible will transition to medical surgical floor today given cardiac evaluation has been unremarkable. (3) Elevated LFTs, Chronic: Associated w/ EtOH Abuse history, admission AST/ALT 98/102, similar to prior, hydrated, ongoing treatment for acute withdrawal as noted, 03/11/18 T bili 1.30, AST/ALT 61/78. (4) CAD: s/p PCI BMS-Prox and Distal RCA 12/23/16, s/p STEMI, follows w/ Dr. Monte although from records non-compliance noted. Will continue home regimen asa, plavix, statin, BB. (5) Hypertension: Continue home regimen including metoprolol, PRN hydralazine. (6) Hyperlipidemia: Continue home statin regimen. AM FLP. (7) Anxiety and Depression: Continue home prozac regimen. Will hold q HS ativan given librium and PRN ativan usage as noted but restart upon discharge. (8) Tobacco Abuse: Encouraged cessation, inpatient consultation per RT, NR if desired. (9) DVT Prophylaxis: SCDs, lovenox. Code Visit Inpatient E&M: 49126 Subs Hosp L2
[2018-03-11] MEDS: HYDROcodone Bitartrate/Apap 5/325 Tablet PO (09:54)
--- NOTE | 2018-03-11 09:55 | PN_ITS ---
Patient Problems: Active and Suspected Problems (Last Reviewed 01/04/18 @ 16:19 by Socrates Monte MD) Acute, mixed level of activity, alcohol withdrawal delirium (Acute) Subjective: Overnight patient with stable left-sided more musculoskeletal chest discomfort with serial cardiac enzymes which remained negative and no events on telemetry with notable improvement of alcohol withdrawal symptoms, less tremulous this morning, able to move about his room, less weak, less agitated. Discussed chest discomfort likely musculoskeletal with recent fall and given patient evaluation unremarkable to this point with improved withdrawal symptoms plan to transition to medical surgical floor to which patient is amenable. Patient denies fevers, chills, nausea, emesis, abdominal pain or dyspnea. Objective: Physical Examination: General: awake, alert, oriented x 3 and cooperative, walking in his room, more well appearing, notes withdrawal symptoms notably improved. Skin: normal color, turgor, no icterus, cyanosis occasional extremity ecchymoses, status post recent fall with left-sided chest discomfort, reprod ucible pain. HEENT: AT/NC, EOMI, PERRLA, improved MMM. Lungs: Diminished BS BL, > bases, mild effort, still mildly TTP L sided chest, no rales, ronchi or wheezing. Heart: Regular rate with regular rhythm; no gallop, rub audible. Abdomen: soft, NTTP, ND, normal BS. Extremities: no cyanosis, clubbing, mild BL ankle edema nonpitting. Neurological: patient awake, alert, oriented x 3; cognitive function appears improved, suspect near baseline intact; pupils equally reactive to light and accomodation; cranial nerves II-XII grossly normal, moving all 4 extremities, less tremulous, does not appear anxious, no focal deficits, strength improved, mildly to moderately globally decreased. Psychiatric: affect appears improved, less tremulous, not anxious, no acute evidence of depressive feelings. Vitals/I&O's: Vital Signs Temp Pulse Resp BP Pulse Ox 98 F 90 20 H 106/66 96 03/11/18 08:39 03/11/18 08:46 03/11/18 08:39 03/11/18 08:39 03/11/18 08:39 Oxygen Delivery Method Room Air Weight: 168 lb 6.931 oz Body Mass Index (BMI) 20.0 Intake and Output for Last 24 Hours 03/09/18 03/10/18 03/11/18 23:59 23:59 23:59 Intake Total 240 / 240 1979 Balance 240 / 240 1979 Laboratory Results 03/10/18 09:10: Ethyl Alcohol 10.0 03/10/18 12:45: Phosphorus 5.0 H, Magnesium 1.9, Troponin I < 0.015 03/10/18 22:40: Troponin I 0.022 03/11/18 06:16: WBC 5.6, RBC 4.31 L, Hgb 13.6, Hct 40.0, MCV 92.8, MCH 31.6, MCHC 34.0, RDW 15.3 H, RDW Differential 51.9 H, Plt Count 132 L, MPV 9.8, Immature Gran % (Auto) 0.400, Neut % (Auto) 55.5, Lymph % (Auto) 28.0, [place] % (Auto) 13.2 H, Eos % (Auto) 2.5, Baso % (Auto) 0.4, Absolute Neuts (auto) 3.1, Absolute Lymphs (auto) 1.57, Total Counted Not Reportable 03/11/18 06:16: Sodium 140, Potassium 3.9, Chloride 104, Carbon Dioxide 27.0, Anion Gap 9, BUN 13, Creatinine 0.84, Estim Creat Clear Calc 111.16, Est GFR (MDRD) Af Amer 124, Est GFR (MDRD) Non-Af 103, BUN/Creatinine Ratio 15.6, Glucose 79, Calcium 8.2 L, Total Bilirubin 1.30 H, AST 61 H, ALT 78 H, Alkaline Phosphatase 74, Total Protein 5.8 L, Albumin 2.9 L, Globulin 2.9, Albumin/Globulin Ratio 1.0, Triglycerides 65, Cholesterol 105, LDL Cholesterol 28, VLDL Cholesterol 13, HDL Cholesterol 64 Current Medications Acetaminophen (Tylenol) 650 mg PO Q6H PRN PRN PRN Reason: Non-cardiac pain (mod-severe) Acetaminophen (Tylenol) 500 mg PO Q4H PRN PRN PRN Reason: Temp > 100.4 F Hydrocodone Bitart/Acetaminophen ([place] 5mg-325mg) 1 tablet PO Q6H PRN PRN PRN Reason: PAIN Last Admin: 03/10/18 23:12 Dose: 1 tablet Al Hydroxide/Mg Hydroxide (Mylanta Ii) 30 ml PO Q6H PRN PRN PRN Reason: dyspesia Aspirin (Aspirin, Baby) 81 mg PO DAILY@0800 [facility] Last Admin: 03/11/18 08:44 Dose: 81 mg Atorvastatin Calcium (Lipitor) 20 mg PO QHS [facility] Last Admin: 03/10/18 23:09 Dose: 20 mg Bisacodyl (Dulcolax) 10 mg RECTAL DAILY PRN PRN Reason: Constipation Chlordiazepoxide (Librium) 50 mg PO Q8H [facility]; Taper Stop: 03/13/18 15:59 Last Admin: 03/11/18 05:38 Dose: 50 mg Clopidogrel Bisulfate (Plavix) 75 mg PO DAILY [facility] Last Admin: 03/11/18 08:46 Dose: 75 mg Dicyclomine HCl (Bentyl) 20 mg PO Q6H PRN PRN PRN Reason: abdominal discomfort Last Admin: 03/11/18 09:43 Dose: 20 mg Enoxaparin Sodium (Lovenox) 40 mg SC DAILY@1000 [facility] Last Admin: 03/11/18 08:47 Dose: Not Given Etodolac (Lodine) 400 mg PO Q8 [facility] Last Admin: 03/11/18 05:37 Dose: 400 mg Famotidine (Pepcid) 20 mg PO BID [facility] Last Admin: 03/11/18 08:45 Dose: 20 mg Fluoxetine HCl (Prozac) 20 mg PO DAILY [facility] Last Admin: 03/11/18 08:43 Dose: 20 mg Folic Acid (Folic Acid) 1 mg PO DAILYCM [facility] Last Admin: 03/11/18 08:44 Dose: 1 mg Hydralazine HCl (Apresoline Iv) 10 mg IV Q4H PRN PRN PRN Reason: SBP > 160 Hydroxyzine Pamoate (Vistaril Pamoate Capsule) 50 mg PO Q6H PRN PRN PRN Reason: Mild Anxiety (score 1/3) Last Admin: 03/11/18 09:43 Dose: 50 mg Sodium Chloride () 1,000 mls @ 125 mls/hr IV .Q8H [facility] Last Admin: 03/11/18 05:37 Dose: 125 mls/hr Loperamide HCl (Imodium) 2 - 4 mg PO UD PRN PRN Reason: LOOSE STOOLS Lorazepam (Ativan) 1 mg IV Q4H PRN PRN PRN Reason: Severe Anxiety Lorazepam (Ativan) 2 mg IV X1 PRN PRN Reason: Seizure Magnesium Hydroxide (Milk Of Magnesia) 30 ml PO DAILY PRN PRN Reason: Constipation Methocarbamol (Methocarbamol) 750 mg PO Q6H PRN PRN PRN Reason: Muscle Aches Last Admin: 03/11/18 09:43 Dose: 750 mg Metoprolol Succinate (Toprol Xl (Beta Levon)) 25 mg PO DAILY [facility] Last Admin: 03/11/18 08:46 Dose: 25 mg Morphine Sulfate () 1 - 2 mg IV Q4H PRN PRN PRN Reason: PAIN [facility] Last Admin: 03/11/18 08:43 Dose: 1 tablet Nicotine (Nicoderm Cq (Pbkc)) 14 mg TRANSDERM. DAILY [facility] Last Admin: 03/11/18 08:48 Dose: 14 mg Nitroglycerin (Nitrostat) 0.4 mg SUBLINGUAL Q5M PRN PRN Reason: Angina pain Nutritional Formula (Lactose Free) (Ensure Enlive) 120 ml PO 4X/DAY [facility] Last Admin: 03/11/18 08:44 Dose: Not Given Ondansetron HCl (Zofran) 4 mg IV Q8H PRN PRN PRN Reason: NAUSEA/VOMITING Ondansetron HCl (Zofran Odt) 4 mg PO Q6H PRN PRN PRN Reason: NAUSEA Quetiapine Fumarate (Seroquel) 25 mg PO Q6H PRN PRN PRN Reason: agitation, anxiety Last Admin: 03/11/18 09:43 Dose: 25 mg Senna (Senokot) 1 tablet PO QHS PRN PRN Reason: Constipation Sodium Chloride () 5 - 15 ml IV UD PRN PRN Reason: SALINE FLUSH Thiamine HCl ([facility]) [facility] Last Admin: 03/11/18 08:45 Dose: 100 mg Trazodone HCl (Desyrel) 50 mg PO QHS [facility] Last Admin: 03/10/18 23:09 Dose: 50 mg Medical Necessity - Tobacco Use Smoking Status: Current every day smoker - Currently 1/2 ppd, prior 1 ppd since teenager, only recently cut down. Tobacco Use: Cigarettes Assessment/Plan All Active Problems (Last Reviewed 01/04/18 @ 16:19 by Socrates Monte MD) Acute, mixed level of activity, alcohol withdrawal delirium (Acute) Intermittent palpitations (Acute) Chest pain (Acute) STEMI (ST elevation myocardial infarction) (Resolved) The patient is a 52 y/o M w/ PMHx: CAD s/p PCI x 2, HTN, HLD, Tobacco use, Anxiety, EtOH Abuse with 4-10 beers daily with most recent usage 03/09/18 5 pm 4 beers at that time with onset following nausea, emesis, tremors, agitation in addition to history ~ 1 week prior fall off his ladder x 2 steps, landing on his left lateral chest with discomfort following but noted improvement with onset the evening prior severe, sharp and squeezing, 10/10, constant, non-radiating chest pain, of note following his bouts of emesis without any improvement. (1) Acute EtOH Withdrawal: Admitted to the PCU initially on telemetry given CAD history with CP although likely secondary to recent fall and recent emesis with muscle strain, obtained routine labs including CBC, CMP, urine for drug screen, urinalysis, serum lipase, initiated and continue on [facility] service protocol with taper course of librium, as needed Seroquel, Catapres, Bentyl, Vistaril, IV fluids, IV antiemetics, Tylenol as needed for pain. Once patient clinically improved and completion of taper nearing will plan [facility] assistance for transition to next level of rehabilitation care. Mag, phos obtained, not decreased. Maintain on CIWA protocol. Given clinical improvement, transitioning to [place]. (2) Chest Pain, Atypical: EKG in ED with no acute evidence of ischemia, CXR w/ with no acute cardiopulmonary process, initial trop normal x 1. Patient w/ CAD history with CP although likely secondary to recent fall and recent emesis with muscle strain. To be cautious, placed on a monitored bed to assure no acute myocardial infarction with serial cardiac enzymes and EKGs which remained unremarkable. Given likely musculoskeletal etiology, reproducible will transition to medical surgical floor today given cardiac evaluation has been unremarkable. (3) Elevated LFTs, Chronic: Associated w/ EtOH Abuse history, admission AST/ALT 98/102, similar to prior, hydrated, ongoing treatment for acute withdrawal as noted, 03/11/18 T bili 1.30, AST/ALT 61/78. (4) CAD: s/p PCI BMS-Prox and Distal RCA 12/23/16, s/p STEMI, follows w/ Dr. Monte although from records non-compliance noted. Will continue home regimen asa, plavix, statin, BB. (5) Hypertension: Continue home regimen including metoprolol, PRN hydralazine. (6) Hyperlipidemia: Continue home statin regimen. AM FLP. (7) Anxiety and Depression: Continue home prozac regimen. Will hold q HS ativan given librium and PRN ativan usage as noted but restart upon discharge. (8) Tobacco Abuse: Encouraged cessation, inpatient consultation per RT, NR if desired. (9) DVT Prophylaxis: SCDs, lovenox. Code Visit Inpatient E&M: 54392 Subs Hosp L2
--- NOTE | 2018-03-11 15:32 | NURSING ---
PT states that he was no able to sleep for more then an hour. Pt is restless, slightly agitated. walking in room. Will give Ativan.
[2018-03-11] MEDS: LORazepam 2 MG/ML Syringe 1 MG IV (16:01)
--- NOTE | 2018-03-11 16:01 | NURSING ---
CIWA score 13. Librium not effective thus far and pt restless and anxious. Ativan given 1mg at this time.
[2018-03-11] MEDS: Atorvastatin Calcium 20 MG Tablet PO (21:12)
[2018-03-11] MEDS: traZODone 50 MG Tablet PO (21:12)
[2018-03-12] VITALS (9 sets, daily range): BP systolic 98–117; BP diastolic 60–77; PULSE 59–69; RESP 18; TEMP 36.3–36.8; O2SAT 95
[2018-03-12] MEDS: Methocarbamol 750 MG Tablet PO ×2 (00:16→09:37)
[2018-03-12] MEDS: chlordiazePOXIDE 25 MG Capsule PO ×3 (00:17→16:01)
[2018-03-12] MEDS: HYDROcodone Bitartrate/Apap 5/325 Tablet PO ×2 (05:40→16:00)
[2018-03-12] MEDS: hydrOXYzine PAM 25 MG Capsule 50 MG PO (05:40)
[2018-03-12] MEDS: Etodolac 200 MG Capsule 400 MG PO ×3 (05:40→21:36)
--- NOTE | 2018-03-12 05:40 | NURSING ---
Awoke pt for am medication. Pt upset, stated are you serious?' I ask pt what was wrong and he responded with I was just woke up 10 minutes ago for blood. I explained to pt the importance of routine blood work for his stay and told him I need to give him scheduled medication this morning. He responded with, Fine, maybe I can finally get some sleep after that Refusing other care at this time.
[2018-03-12 06:58] LABS: Absolute Neutrophil Count 2.9 X10^3/uL (2.0-7.7); Basophil# 0.02 X10^3/uL; Basophil% 0.4 % (0-1); Eosinophil# 0.15 X10^3/uL; Eosinophils% 2.8 % (0-5); Hematocrit 39.5 % (40-54); Hemoglobin 13.3 g/dl (13.0-16.5); Lymphocyte % 31.3 % (19-41); Mean Corp Hgb Conc 33.7 g/gl (32-36); Mean Corpuscular Hgb 31.7 pg (27.0-32.0); Monocyte# 0.68 X10^3/uL; Monocyte% 12.5 % (0-10); Neutrophil # 2.87 X10^3/uL (2.7-7.7); Neutrophil % 52.6 % (47-70); Platelet Count 132 K/mm3 (150-450); RBC Distribution Width CV 15.6 % (11.6-14.6); RBC Distribution Width SD 53.6 fl (35.1-43.9); White Blood Count 5.4 K/mm3 (4.4-11.0)
[2018-03-12 07:00] LABS: POSITIVE COUNT NO; POSITIVE DIFFERENTIAL NO; POSITIVE MORPHOLOGY NO
[2018-03-12 07:18] LABS: ALB/GLOB Ratio 0.8 RATIO (0.9-2.4); AST(SGOT) 62 U/L (15-37); Alanine Aminotransfer ALT/SGPT 80 U/L (16-61); Albumin, Serum 2.7 g/dL (3.2-5.0); Alkaline Phosphatase 78 U/L (45-117); Anion Gap 8 (5-15); BUN 12 mg/dL (7-18); BUN/Creat Ratio 17.9 RATIO (10-20); Calcium,Total 8.5 mg/dL (8.5-10.1); Chloride 107 mmol/L (98-107); Creatinine, Serum 0.67 mg/dL (0.70-1.30); EST Glomerular Filtration Rate 132 mL/min (>60); Est Glom Filt Rate - Afr Amer 160 mL/min (>60); Estimated Creatinine Clearance 139.37 ml/min; Globulin 3.2 g/dL (2.2-4.2); Glucose 77 mg/dL (74-106); Potassium 3.8 mmol/L (3.5-5.1); Protein, Total 5.9 g/dL (6.4-8.2); Sodium Level 142 mmol/L (136-145)
--- NOTE | 2018-03-12 09:35 | PCM.PN.HOSP ---
Patient Problems: Active and Suspected Problems (Last Reviewed 01/04/18 @ 16:19 by Socrates Monte MD) Acute, mixed level of activity, alcohol withdrawal delirium (Acute) Subjective: The patient is a 52 y/o M w/ PMHx: CAD s/p PCI x 2, HTN, HLD, Tobacco use, Anxiety, EtOH Abuse with 4-10 beers daily with most recent usage 03/09/18 5 pm 4 beers at that time with onset following nausea, emesis, tremors, agitation in addition to history ~ 1 week prior fall off his ladder x 2 steps, landing on his left lateral chest with discomfort following but noted improvement with onset the evening prior severe, sharp and squeezing, 10/10, constant, non-radiating chest pain, of note following his bouts of emesis without any improvement. Admitted to the PCU initially on telemetry given CAD history with CP although likely secondary to recent fall and recent emesis with muscle strain, obtained routine labs including CBC, CMP, urine for drug screen, urinalysis, serum lipase, initiated and continue on [facility] service protocol with taper course of librium, as needed Seroquel, Catapres, Bentyl, Vistaril, IV fluids, IV antiemetics, Tylenol as needed for pain. Mag, phos obtained, not decreased. Maintained on CIWA protocol. Given clinical improvement, transitioned 03/11/18 to [place]. Patient initially insisted upon discharge today however following discussions about his progress and sobriety willing to remain to completion of taper 03/13/18 4 am. EKG in ED with no acute evidence of ischemia, CXR w/ with no acute cardiopulmonary process, initial trop normal x 1. Patient w/ CAD history with CP although likely secondary to recent fall and recent emesis with muscle strain. To be cautious, placed on a monitored bed to assure no acute myocardial infarction with serial cardiac enzymes and EKGs which remained unremarkable. Given likely musculoskeletal etiology, reproducible with negative cardiac evaluation, transited to medical surgical floor. Left-sided reproducible discomfort secondary to recent fall improved during admission. Elevated LFTs, Acute on Chronic, associated w/ EtOH Abuse history, admission AST/ALT 98/102, similar to prior, hydrated, ongoing treatment for acute withdrawal as noted, 03/12/18 T bili 0.70, AST/ALT 62/80, appears near baseline. Patient with no acute events overnight per self and per nursing report. Patient notes left-sided chest discomfort is markedly improved since initial presentation and now minimal re-producible chest discomfort with palpation. Patient notes withdrawal symptoms have markedly improved and no longer has tremors, seated upright, eating without his hand shaking, initially eager for discharge today however amenable to remaining for completion of taper. Patient denies fevers, chills, nausea, emesis, abdominal pain, chest pain or dyspnea. Objective: Physical Examination: General: awake, alert, oriented x 3 and cooperative, seated upright in his bed, eating breakfast, no acute distress. Skin: normal color, turgor, no icterus, cyanosis occasional extremity ecchymoses, status post recent fall with left-sided chest discomfort, pain nearly resolved. HEENT: AT/NC, EOMI, PERRLA, improved MMM. Lungs: Diminished BS BL, > bases, mild effort, left sided discomfort with palpation nearly resolved, no rales, ronchi or wheezing. Heart: Regular rate with regular rhythm; no gallop, rub audible. Abdomen: soft, NTTP, ND, normal BS. Extremities: no cyanosis, clubbing, no edema. Neurological: patient awake, alert, oriented x 3; cognitive function appears improved, suspect near baseline intact; pupils equally reactive to light and accomodation; cranial nerves II-XII grossly normal, moving all 4 extremities, murmurs resolved, no focal deficits, strength preserved. Psychiatric: affect appears improved, normal, no acute evidence of anxiety or depressive feelings. Vitals/I&O's: Vital Signs Temp Pulse Resp BP Pulse Ox 98.3 F 61 18 119/75 95 03/11/18 22:00 03/12/18 04:30 03/11/18 22:00 03/11/18 22:00 03/12/18 09:14 Oxygen Delivery Method Room Air Weight: 168 lb 6.931 oz Body Mass Index (BMI) 20.0 Intake and Output for Last 24 Hours 03/10/18 03/11/18 03/12/18 23:59 23:59 23:59 Intake Total 240 / 240 2380 / 2380 700 / 700 Balance 240 / 240 2380 / 2380 700 / 700 Laboratory Results 03/12/18 05:12: WBC 5.4, RBC 4.20 L, Hgb 13.3, Hct 39.5 L, MCV 94.0, MCH 31.7, MCHC 33.7, RDW 15.6 H, RDW Differential 53.6 H, Plt Count 132 L, MPV 10.0, Immature Gran % (Auto) 0.400, Neut % (Auto) 52.6, Lymph % (Auto) 31.3, [place] % (Auto) 12.5 H, Eos % (Auto) 2.8, Baso % (Auto) 0.4, Absolute Neuts (auto) 2.9, Absolute Lymphs (auto) 1.70, Total Counted Not Reportable 03/12/18 05:12: Sodium 142, Potassium 3.8, Chloride 107, Carbon Dioxide 27.0, Anion Gap 8, BUN 12, Creatinine 0.67 L, Estim Creat Clear Calc 139.37, Est GFR (MDRD) Af Amer 160, Est GFR (MDRD) Non-Af 132, BUN/Creatinine Ratio 17.9, Glucose 77, Calcium 8.5, Total Bilirubin 0.70, AST 62 H, ALT 80 H, Alkaline Phosphatase 78, Total Protein 5.9 L, Albumin 2.7 L, Globulin 3.2, Albumin/Globulin Ratio 0.8 L Current Medications Acetaminophen (Tylenol) 650 mg PO Q6H PRN PRN PRN Reason: Non-cardiac pain (mod-severe) Acetaminophen (Tylenol) 500 mg PO Q4H PRN PRN PRN Reason: Temp > 100.4 F Hydrocodone Bitart/Acetaminophen (Ector 5mg-325mg) 1 tablet PO Q6H PRN PRN PRN Reason: PAIN Last Admin: 03/12/18 05:40 Dose: 1 tablet Al Hydroxide/Mg Hydroxide (Mylanta Ii) 30 ml PO Q6H PRN PRN PRN Reason: dyspesia Aspirin (Aspirin, Baby) 81 mg PO DAILY@0800 [facility] Last Admin: 03/11/18 08:44 Dose: 81 mg Atorvastatin Calcium (Lipitor) 20 mg PO QHS [facility] Last Admin: 03/11/18 21:12 Dose: 20 mg Bisacodyl (Dulcolax) 10 mg RECTAL DAILY PRN PRN Reason: Constipation Chlordiazepoxide (Librium) 50 mg PO Q8H [facility]; Taper Stop: 03/13/18 15:59 Last Admin: 03/12/18 00:17 Dose: 50 mg Clopidogrel Bisulfate (Plavix) 75 mg PO DAILY [facility] Last Admin: 03/11/18 08:46 Dose: 75 mg Dicyclomine HCl (Bentyl) 20 mg PO Q6H PRN PRN PRN Reason: abdominal discomfort Last Admin: 03/11/18 16:00 Dose: 20 mg Enoxaparin Sodium (Lovenox) 40 mg SC DAILY@1000 [facility] Last Admin: 03/11/18 08:47 Dose: Not Given Etodolac (Lodine) 400 mg PO Q8 [facility] Last Admin: 03/12/18 05:40 Dose: 400 mg Famotidine (Pepcid) 20 mg PO BID [facility] Last Admin: 03/11/18 21:12 Dose: 20 mg Fluoxetine HCl (Prozac) 20 mg PO DAILY [facility] Last Admin: 03/11/18 08:43 Dose: 20 mg Folic Acid (Folic Acid) 1 mg PO DAILYCM [facility] Last Admin: 03/11/18 08:44 Dose: 1 mg Hydralazine HCl (Apresoline Iv) 10 mg IV Q4H PRN PRN PRN Reason: SBP > 160 Hydroxyzine Pamoate (Vistaril Pamoate Capsule) 50 mg PO Q6H PRN PRN PRN Reason: Mild Anxiety (score 1/3) Last Admin: 03/12/18 05:40 Dose: 50 mg Loperamide HCl (Imodium) 2 - 4 mg PO UD PRN PRN Reason: LOOSE STOOLS Lorazepam (Ativan) 1 mg IV Q4H PRN PRN PRN Reason: Severe Anxiety Last Admin: 03/11/18 16:01 Dose: 1 mg Lorazepam (Ativan) 2 mg IV X1 PRN PRN Reason: Seizure Magnesium Hydroxide (Milk Of Magnesia) 30 ml PO DAILY PRN PRN Reason: Constipation Methocarbamol (Methocarbamol) 750 mg PO Q6H PRN PRN PRN Reason: Muscle Aches Last Admin: 03/12/18 00:16 Dose: 750 mg Metoprolol Succinate (Toprol Xl (Beta Levon)) 25 mg PO DAILY [facility] Last Admin: 03/11/18 08:46 Dose: 25 mg Morphine Sulfate () 1 - 2 mg IV Q4H PRN PRN PRN Reason: PAIN [facility]amin) [facility] Last Admin: 03/11/18 08:43 Dose: 1 tablet Nicotine (Nicoderm Cq (Pbkc)) 14 mg TRANSDERM. DAILY [facility] Last Admin: 03/11/18 08:48 Dose: 14 mg Nitroglycerin (Nitrostat) 0.4 mg SUBLINGUAL Q5M PRN PRN Reason: Angina pain Ondansetron HCl (Zofran) 4 mg IV Q8H PRN PRN PRN Reason: NAUSEA/VOMITING Ondansetron HCl (Zofran Odt) 4 mg PO Q6H PRN PRN PRN Reason: NAUSEA Quetiapine Fumarate (Seroquel) 25 mg PO Q6H PRN PRN PRN Reason: agitation, anxiety Last Admin: 03/11/18 21:12 Dose: 25 mg Senna (Senokot) 1 tablet PO QHS PRN PRN Reason: Constipation Sodium Chloride () 5 - 15 ml IV UD PRN PRN Reason: SALINE FLUSH Thiamine HCl (Vitamin B1) [facility] Last Admin: 03/11/18 08:45 Dose: 100 mg Trazodone HCl (Desyrel) 50 mg PO QHS [facility] Last Admin: 03/11/18 21:12 Dose: 50 mg Medical Necessity - Tobacco Use Smoking Status: Current every day smoker Tobacco Use: Cigarettes Assessment/Plan All Active Problems (Last Reviewed 01/04/18 @ 16:19 by Socrates Monte MD) Acute, mixed level of activity, alcohol withdrawal delirium (Acute) Intermittent palpitations (Acute) Chest pain (Acute) STEMI (ST elevation myocardial infarction) (Resolved) The patient is a 52 y/o M w/ PMHx: CAD s/p PCI x 2, HTN, HLD, Tobacco use, Anxiety, EtOH Abuse with 4-10 beers daily with most recent usage 03/09/18 5 pm 4 beers at that time with onset following nausea, emesis, tremors, agitation in addition to history ~ 1 week prior fall off his ladder x 2 steps, landing on his left lateral chest with discomfort following but noted improvement with onset the evening prior severe, sharp and squeezing, 10/10, constant, non-radiating chest pain, of note following his bouts of emesis without any improvement. (1) Acute EtOH Withdrawal: Admitted to the PCU initially on telemetry given CAD history with CP although likely secondary to recent fall and recent emesis with muscle strain, obtained routine labs including CBC, CMP, urine for drug screen, urinalysis, serum lipase, initiated and continue on [facility] service protocol with taper course of librium, as needed Seroquel, Catapres, Bentyl, Vistaril, IV fluids, IV antiemetics, Tylenol as needed for pain. Mag, phos obtained, not decreased. Maintained on [facility] protocol. Given clinical improvement, transitioned 03/11/18 to [place]. Patient initially insisted upon discharge today however following discussions about his progress and sobriety willing to remain to completion of taper 03/13/18 4 am. (2) Chest Pain, Atypical: EKG in ED with no acute evidence of ischemia, CXR w/ with no acute cardiopulmonary process, initial trop normal x 1. Patient w/ CAD history with CP although likely secondary to recent fall and recent emesis with muscle strain. To be cautious, placed on a monitored bed to assure no acute myocardial infarction with serial cardiac enzymes and EKGs which remained unremarkable. Given likely musculoskeletal etiology, reproducible with negative cardiac evaluation, transited to medical surgical floor. Left-sided reproducible discomfort secondary to recent fall improved during admission. (3) Elevated LFTs, Chronic: Associated w/ EtOH Abuse history, admission AST/ALT 98/102, similar to prior, hydrated, ongoing treatment for acute withdrawal as noted, 03/12/18 T bili 0.70, AST/ALT 62/80, appears near baseline. (4) CAD: s/p PCI BMS-Prox and Distal RCA 12/23/16, s/p STEMI, follows w/ Dr. Monte although from records non-compliance noted. Will continue home regimen asa, plavix, statin, BB. (5) Hypertension: Continue home regimen including metoprolol, PRN hydralazine. (6) Hyperlipidemia: Continue home statin regimen. AM FLP not marked appearing. (7) Anxiety and Depression: Continue home prozac regimen. Held home q HS ativan given librium and PRN ativan usage as noted but restart upon discharge. (8) Tobacco Abuse: Encouraged cessation, inpatient consultation per RT, NR if desired. (9) DVT Prophylaxis: SCDs, lovenox. Code Visit Inpatient E&M: 57646 Subs Hosp L2
[2018-03-12] MEDS: QUEtiapine 25 MG Tablet PO (09:37)
[2018-03-12] MEDS: Thiamine Hydrochloride 100 MG Tablet PO (09:37)
[2018-03-12] MEDS: Multivitamins,Therapeutic Tablet 1 TABLET PO (09:37)
[2018-03-12] MEDS: Folic Acid 1 MG Tablet PO (09:38)
[2018-03-12] MEDS: Famotidine 20 MG Tablet PO ×2 (09:38→21:36)
[2018-03-12] MEDS: Metoprolol(XL)Succ 25 MG Tablet PO (09:38)
[2018-03-12] MEDS: Clopidogrel Bisulfate 75 MG Tablet PO (09:39)
[2018-03-12] MEDS: Aspirin 81 MG TAB.CHEW PO (09:39)
--- NOTE | 2018-03-12 09:40 | PN_ITS ---
Patient Problems: Active and Suspected Problems (Last Reviewed 01/04/18 @ 16:19 by Socrates Monte MD) Acute, mixed level of activity, alcohol withdrawal delirium (Acute) Subjective: The patient is a 52 y/o M w/ PMHx: CAD s/p PCI x 2, HTN, HLD, Tobacco use, Anxiety, EtOH Abuse with 4-10 beers daily with most recent usage 03/09/18 5 pm 4 beers at that time with onset following nausea, emesis, tremors, agitation in addition to history ~ 1 week prior fall off his ladder x 2 steps, landing on his left lateral chest with discomfort following but noted improvement with onset the evening prior severe, sharp and squeezing, 10/10, constant, non-radiating chest pain, of note following his bouts of emesis without any improvement. Admitted to the PCU initially on telemetry given CAD history with CP although likely secondary to recent fall and recent emesis with muscle strain, obtained routine labs including CBC, CMP, urine for drug screen, urinalysis, serum lipase, initiated and continue on [facility] service protocol with taper course of librium, as needed Seroquel, Catapres, Bentyl, Vistaril, IV fluids, IV antiemetics, Tylenol as needed for pain. Mag, phos obtained, not decreased. Maintained on [facility] protocol. Given clinical improvement, transitioned 03/11/18 to [place]. Patient initially insisted upon discharge today however following discussions about his progress and sobriety willing to remain to completion of taper 03/13/18 4 am. EKG in ED with no acute evidence of ischemia, CXR w/ with no acute cardiopulmonary process, initial trop normal x 1. Patient w/ CAD history with CP although likely secondary to recent fall and recent emesis with muscle strain. To be cautious, placed on a monitored bed to assure no acute myocardial infarction with serial cardiac enzymes and EKGs which remained unremarkable. Given likely musculoskeletal etiology, reproducible with negative cardiac evaluation, transited to medical surgical floor. Left-sided reproducible discomfort secondary to recent fall improved during admission. Elevated LFTs, Acute on Chronic, associated w/ EtOH Abuse history, admission AST/ALT 98/102, similar to prior, hydrated, ongoing treatment for acute withdrawal as noted, 03/12/18 T bili 0.70, AST/ALT 62/80, appears near baseline. Patient with no acute events overnight per self and per nursing report. Patient notes left-sided chest discomfort is markedly improved since initial presentation and now minimal re-producible chest discomfort with palpation. Patient notes withdrawal symptoms have markedly improved and no longer has tremors, seated upright, eating without his hand shaking, initially eager for discharge today however amenable to remaining for completion of taper. Patient denies fevers, chills, nausea, emesis, abdominal pain, chest pain or dyspnea. Objective: Physical Examination: General: awake, alert, oriented x 3 and cooperative, seated upright in his bed, eating breakfast, no acute distress. Skin: normal color, turgor, no icterus, cyanosis occasional extremity ecchymoses, status post recent fall with left-sided chest discomfort, pain nearly resolved. HEENT: AT/NC, EOMI, PERRLA, improved MMM. Lungs: Diminished BS BL, > bases, mild effort, left sided discomfort with palpation nearly resolved, no rales, ronchi or wheezing. Heart: Regular rate with regular rhythm; no gallop, rub audible. Abdomen: soft, NTTP, ND, normal BS. Extremities: no cyanosis, clubbing, no edema. Neurological: patient awake, alert, oriented x 3; cognitive function appears improved, suspect near baseline intact; pupils equally reactive to light and accomodation; cranial nerves II-XII grossly normal, moving all 4 extremities, murmurs resolved, no focal deficits, strength preserved. Psychiatric: affect appears improved, normal, no acute evidence of anxiety or depressive feelings. Vitals/I&O's: Vital Signs Temp Pulse Resp BP Pulse Ox 98.3 F 61 18 119/75 95 03/11/18 22:00 03/12/18 04:30 03/11/18 22:00 03/11/18 22:00 03/12/18 09:14 Oxygen Delivery Method Room Air Weight: 168 lb 6.931 oz Body Mass Index (BMI) 20.0 Intake and Output for Last 24 Hours 03/10/18 03/11/18 03/12/18 23:59 23:59 23:59 Intake Total 240 / 240 2380 / 2380 700 / 700 Balance 240 / 240 2380 / 2380 700 / 700 Laboratory Results 03/12/18 05:12: WBC 5.4, RBC 4.20 L, Hgb 13.3, Hct 39.5 L, MCV 94.0, MCH 31.7, MCHC 33.7, RDW 15.6 H, RDW Differential 53.6 H, Plt Count 132 L, MPV 10.0, Immature Gran % (Auto) 0.400, Neut % (Auto) 52.6, Lymph % (Auto) 31.3, [place] % (Auto) 12.5 H, Eos % (Auto) 2.8, Baso % (Auto) 0.4, Absolute Neuts (auto) 2.9, Absolute Lymphs (auto) 1.70, Total Counted Not Reportable 03/12/18 05:12: Sodium 142, Potassium 3.8, Chloride 107, Carbon Dioxide 27.0, Anion Gap 8, BUN 12, Creatinine 0.67 L, Estim Creat Clear Calc 139.37, Est GFR (MDRD) Af Amer 160, Est GFR (MDRD) Non-Af 132, BUN/Creatinine Ratio 17.9, Glucose 77, Calcium 8.5, Total Bilirubin 0.70, AST 62 H, ALT 80 H, Alkaline Phosphatase 78, Total Protein 5.9 L, Albumin 2.7 L, Globulin 3.2, Albumin/Globulin Ratio 0.8 L Current Medications Acetaminophen (Tylenol) 650 mg PO Q6H PRN PRN PRN Reason: Non-cardiac pain (mod-severe) Acetaminophen (Tylenol) 500 mg PO Q4H PRN PRN PRN Reason: Temp > 100.4 F Hydrocodone Bitart/Acetaminophen ([place] 5mg-325mg) 1 tablet PO Q6H PRN PRN PRN Reason: PAIN Last Admin: 03/12/18 05:40 Dose: 1 tablet Al Hydroxide/Mg Hydroxide (Mylanta Ii) 30 ml PO Q6H PRN PRN PRN Reason: dyspesia Aspirin (Aspirin, Baby) 81 mg PO DAILY@0800 [facility] Last Admin: 03/11/18 08:44 Dose: 81 mg Atorvastatin Calcium (Lipitor) 20 mg PO QHS [facility] Last Admin: 03/11/18 21:12 Dose: 20 mg Bisacodyl (Dulcolax) 10 mg RECTAL DAILY PRN PRN Reason: Constipation Chlordiazepoxide (Librium) 50 mg PO Q8H [facility]; Taper Stop: 03/13/18 15:59 Last Admin: 03/12/18 00:17 Dose: 50 mg Clopidogrel Bisulfate (Plavix) 75 mg PO DAILY [facility] Last Admin: 03/11/18 08:46 Dose: 75 mg Dicyclomine HCl (Bentyl) 20 mg PO Q6H PRN PRN PRN Reason: abdominal discomfort Last Admin: 03/11/18 16:00 Dose: 20 mg Enoxaparin Sodium (Lovenox) 40 mg SC DAILY@1000 [facility] Last Admin: 03/11/18 08:47 Dose: Not Given Etodolac (Lodine) 400 mg PO Q8 [facility] Last Admin: 03/12/18 05:40 Dose: 400 mg Famotidine (Pepcid) 20 mg PO BID [facility] Last Admin: 03/11/18 21:12 Dose: 20 mg Fluoxetine HCl (Prozac) 20 mg PO DAILY [facility] Last Admin: 03/11/18 08:43 Dose: 20 mg Folic Acid (Folic Acid) 1 mg PO DAILYCM [facility] Last Admin: 03/11/18 08:44 Dose: 1 mg Hydralazine HCl (Apresoline Iv) 10 mg IV Q4H PRN PRN PRN Reason: SBP > 160 Hydroxyzine Pamoate (Vistaril Pamoate Capsule) 50 mg PO Q6H PRN PRN PRN Reason: Mild Anxiety (score 1/3) Last Admin: 03/12/18 05:40 Dose: 50 mg Loperamide HCl (Imodium) 2 - 4 mg PO UD PRN PRN Reason: LOOSE STOOLS Lorazepam (Ativan) 1 mg IV Q4H PRN PRN PRN Reason: Severe Anxiety Last Admin: 03/11/18 16:01 Dose: 1 mg Lorazepam (Ativan) 2 mg IV X1 PRN PRN Reason: Seizure Magnesium Hydroxide (Milk Of Magnesia) 30 ml PO DAILY PRN PRN Reason: Constipation Methocarbamol (Methocarbamol) 750 mg PO Q6H PRN PRN PRN Reason: Muscle Aches Last Admin: 03/12/18 00:16 Dose: 750 mg Metoprolol Succinate (Toprol Xl (Beta Levon)) 25 mg PO DAILY [facility] Last Admin: 03/11/18 08:46 Dose: 25 mg Morphine Sulfate () 1 - 2 mg IV Q4H PRN PRN PRN Reason: PAIN [facility]it[facility] ([facility]amin) [facility] Last Admin: 03/11/18 08:43 Dose: 1 tablet Nicotine (Nicoderm Cq (Pbkc)) 14 mg TRANSDERM. DAILY [facility] Last Admin: 03/11/18 08:48 Dose: 14 mg Nitroglycerin (Nitrostat) 0.4 mg SUBLINGUAL Q5M PRN PRN Reason: Angina pain Ondansetron HCl (Zofran) 4 mg IV Q8H PRN PRN PRN Reason: NAUSEA/VOMITING Ondansetron HCl (Zofran Odt) 4 mg PO Q6H PRN PRN PRN Reason: NAUSEA Quetiapine Fumarate (Seroquel) 25 mg PO Q6H PRN PRN PRN Reason: agitation, anxiety Last Admin: 03/11/18 21:12 Dose: 25 mg Senna (Senokot) 1 tablet PO QHS PRN PRN Reason: Constipation Sodium Chloride () 5 - 15 ml IV UD PRN PRN Reason: SALINE FLUSH Thiamine HCl (Vitamin B1) [facility] Last Admin: 03/11/18 08:45 Dose: 100 mg Trazodone HCl (Desyrel) 50 mg PO QHS [facility] Last Admin: 03/11/18 21:12 Dose: 50 mg Medical Necessity - Tobacco Use Smoking Status: Current every day smoker Tobacco Use: Cigarettes Assessment/Plan All Active Problems (Last Reviewed 01/04/18 @ 16:19 by Socrates Monte MD) Acute, mixed level of activity, alcohol withdrawal delirium (Acute) Intermittent palpitations (Acute) Chest pain (Acute) STEMI (ST elevation myocardial infarction) (Resolved) The patient is a 52 y/o M w/ PMHx: CAD s/p PCI x 2, HTN, HLD, Tobacco use, Anxiety, EtOH Abuse with 4-10 beers daily with most recent usage 03/09/18 5 pm 4 beers at that time with onset following nausea, emesis, tremors, agitation in addition to history ~ 1 week prior fall off his ladder x 2 steps, landing on his left lateral chest with discomfort following but noted improvement with onset the evening prior severe, sharp and squeezing, 10/10, constant, non-radiating ch est pain, of note following his bouts of emesis without any improvement. (1) Acute EtOH Withdrawal: Admitted to the PCU initially on telemetry given CAD history with CP although likely secondary to recent fall and recent emesis with muscle strain, obtained routine labs including CBC, CMP, urine for drug screen, urinalysis, serum lipase, initiated and continue on [facility] service protocol with taper course of librium, as needed Seroquel, Catapres, Bentyl, Vistaril, IV fluids, IV antiemetics, Tylenol as needed for pain. Mag, phos obtained, not decreased. Maintained on [facility] protocol. Given clinical improvement, transitioned 03/11/18 to [place]. Patient initially insisted upon discharge today however following discussions about his progress and sobriety willing to remain to completion of taper 03/13/18 4 am. (2) Chest Pain, Atypical: EKG in ED with no acute evidence of ischemia, CXR w/ with no acute cardiopulmonary process, initial trop normal x 1. Patient w/ CAD history with CP although likely secondary to recent fall and recent emesis with muscle strain. To be cautious, placed on a monitored bed to assure no acute myocardial infarction with serial cardiac enzymes and EKGs which remained unremarkable. Given likely musculoskeletal etiology, reproducible with negative cardiac evaluation, transited to medical surgical floor. Left-sided reproducible discomfort secondary to recent fall improved during admission. (3) Elevated LFTs, Chronic: Associated w/ EtOH Abuse history, admission AST/ALT 98/102, similar to prior, hydrated, ongoing treatment for acute withdrawal as noted, 03/12/18 T bili 0.70, AST/ALT 62/80, appears near baseline. (4) CAD: s/p PCI BMS-Prox and Distal RCA 12/23/16, s/p STEMI, follows w/ Dr. Monte although from records non-compliance noted. Will continue home regimen asa, plavix, statin, BB. (5) Hypertension: Continue home regimen including metoprolol, PRN hydralazine. (6) Hyperlipidemia: Continue home statin regimen. AM FLP not marked appearing. (7) Anxiety and Depression: Continue home prozac regimen. Held home q HS ativan given librium and PRN ativan usage as noted but restart upon discharge. (8) Tobacco Abuse: Encouraged cessation, inpatient consultation per RT, NR if desired. (9) DVT Prophylaxis: SCDs, lovenox. Code Visit Inpatient E&M: 69677 Subs Hosp L2
--- NOTE | 2018-03-12 09:49 | DCINST_ITS ---
- Discharge Diagnoses Current Active Problems: Current Active and Chronic Problems (Last Reviewed 01/04/18 @ 16:19 by Socrates Monte MD) (1) Acute EtOH Withdrawal (2) Chest Pain, Atypical, musculoskeletal etiology secondary to history of fall onto the left chest from lower ladder (3) Elevated LFTs, Acute on Chronic secondary to EtOH Abuse history, Improved (4) CAD s/p PCI BMS-Prox and Distal RCA 12/23/16, s/p STEMI (5) Hypertension (6) Hyperlipidemia (7) Anxiety and Depression (8) Tobacco Abuse You will use the following diet at home:: Cardiac Your food should be the consistency of: Regular Your liquids should be the consistency of: Regular/Thin Discharge Activity: Return to Normal Activity May resume sexual activity in: No Restrictions Call your doctor if you observe: Fever of 101 or Higher, Inability to urinate, Inability to have a bowel movement, Shortness of breath, Dizziness, Fainting spells, Chest pain, Uncontrolled pain Additional Instructions: Upon discharge script for vitamins has been sent to your pharmacy in addition to nicotine patch. These vitamins supplement items that are often reduced in individuals who have history of alcohol abuse. Allergies/Adverse Reactions: Allergies No Known Allergies Allergy (Verified 03/10/18 08:17) Medications to take at Discharge ALPRAZolam [Xanax] 1 - 2 mg PO QHS PRN 05/27/17 Fluoxetine [Prozac] 20 mg PO DAILY 05/27/17 Aspirin [Aspirin, Baby] 81 mg PO DAILY@0800 10/03/17 atorvastatin 20 mg tablet 20 mg PO DAILY #90 tab 01/04/18 clopidogrel 75 mg tablet 75 mg PO DAILY #90 tab 01/04/18 metoprolol succinate ER 25 mg tablet,extended release 24 hr 25 mg PO DAILY #90 tab 01/04/18 Etodolac 400 mg PO Q8H #20 tab 03/04/18 Hydrocodone/Acetaminophen [Hydrocodone-Acetamin 5-325 mg] 5 mg PO Q6H PRN PRN 03/04/18 Nicotine [Nicoderm] 14 mg TRANSDERM. DAILY #14 patch 03/12/18 Vit Calc,Iron,Folic [Kpn] 1 each PO DAILY #30 tablet 03/12/18 The following prescriptions were given: Nicotine [Nicoderm] 14 mg TRANSDERM. DAILY #14 patch Vit Calc,Iron,Folic [Kpn] 1 each PO DAILY #30 tablet Primary Care Physician: Kendell Lyons DO [Primary Care Provider] - Please follow up with your Primary Care Physician in: Follow-up within 3-5 days to review admission. Test Results: Test results from this visit will be discussed in further detail at your follow- up appointment, if applicable. Please Follow Up With: [facility] When: Follow with [facility] for next step in outpatient withdrawal care. Proposed Discharge Date: 03/13/18
[2018-03-12] MEDS: LORazepam 2 MG/ML Syringe 1 MG IV ×3 (10:18→21:33)
--- NOTE | 2018-03-12 13:04 | PCA ---
pt asked not to be disturbed per rn
--- NOTE | 2018-03-12 15:30 | PCA ---
per rn pt does not want to be disturbed
[2018-03-12] MEDS: traZODone 50 MG Tablet PO (22:26)
[2018-03-12] MEDS: Atorvastatin Calcium 20 MG Tablet PO (22:26)
[2018-03-13 03:20] VITALS: BP 130/78; PULSE 70; RESP 18; TEMP 36.9
--- NOTE | 2018-03-13 03:20 | NURSING ---
Answer pt call light. Pt sitting up at side of bed. Diaphoretic with notable tremors. Pt asking about d/c. Worried about time of d/c and medication he will be d/c with. Told pt he would receive detailed instruction prior to discharge and the doctor with decide about discharge medication. CIWA completed and charted. Very high anxiety at this time. Pt medicated with scheduled and PRN medication.
[2018-03-13] MEDS: Etodolac 200 MG Capsule 400 MG PO ×2 (03:26→13:47)
[2018-03-13] MEDS: LORazepam 2 MG/ML Syringe 1 MG IV (03:26)
[2018-03-13] MEDS: chlordiazePOXIDE 25 MG Capsule PO (03:26)
[2018-03-13 06:02] LABS: Absolute Lymphocyte Count 1.63 X10^3/ul (0.83-4.51); Absolute Neutrophil Count 3.6 X10^3/uL (2.0-7.7); Basophil# 0.02 X10^3/uL; Basophil% 0.3 % (0-1); Eosinophil# 0.21 X10^3/uL; Eosinophils% 3.5 % (0-5); Hematocrit 39.4 % (40-54); Hemoglobin 13.3 g/dl (13.0-16.5); Lymphocyte # 1.63 X10^3/ul (4.0); Lymphocyte % 27.2 % (19-41); Mean Corp Hgb Conc 33.8 g/gl (32-36); Mean Corpuscular Hgb 31.7 pg (27.0-32.0); Mean Corpuscular Volume 93.8 fL (80-94); Mean Platelet Vol. 10.4 fl (6.2-12.0); Monocyte# 0.57 X10^3/uL; Monocyte% 9.5 % (0-10); Neutrophil # 3.56 X10^3/uL (2.7-7.7); Neutrophil % 59.3 % (47-70); Platelet Count 150 K/mm3 (150-450); RBC Distribution Width SD 53.6 fl (35.1-43.9)
[2018-03-13 06:06] LABS: POSITIVE COUNT NO; POSITIVE DIFFERENTIAL NO; POSITIVE MORPHOLOGY NO
[2018-03-13 06:11] LABS: ALB/GLOB Ratio 0.9 RATIO (0.9-2.4); AST(SGOT) 48 U/L (15-37); Alanine Aminotransfer ALT/SGPT 77 U/L (16-61); Albumin, Serum 2.7 g/dL (3.2-5.0); Alkaline Phosphatase 90 U/L (45-117); Anion Gap 8 (5-15); BUN 16 mg/dL (7-18); BUN/Creat Ratio 21.6 RATIO (10-20); Calcium,Total 8.3 mg/dL (8.5-10.1); Chloride 109 mmol/L (98-107); Creatinine, Serum 0.74 mg/dL (0.70-1.30); EST Glomerular Filtration Rate 118 mL/min (>60); Est Glom Filt Rate - Afr Amer 143 mL/min (>60); Estimated Creatinine Clearance 126.19 ml/min; Globulin 3.1 g/dL (2.2-4.2); Glucose 83 mg/dL (74-106); Protein, Total 5.8 g/dL (6.4-8.2); Sodium Level 144 mmol/L (136-145)
[2018-03-13] MEDS: Famotidine 20 MG Tablet PO (09:28)
[2018-03-13] MEDS: Thiamine Hydrochloride 100 MG Tablet PO (09:28)
[2018-03-13] MEDS: Clopidogrel Bisulfate 75 MG Tablet PO (09:28)
[2018-03-13] MEDS: Folic Acid 1 MG Tablet PO (09:29)
[2018-03-13] MEDS: FLUoxetine 20 MG Capsule PO (09:29)
[2018-03-13] MEDS: Aspirin 81 MG TAB.CHEW PO (09:29)
[2018-03-13] MEDS: Multivitamins,Therapeutic Tablet 1 TABLET PO (09:29)
[2018-03-13 09:30] VITALS: PULSE 63
[2018-03-13] MEDS: Metoprolol(XL)Succ 25 MG Tablet PO (09:30)
[2018-03-13] MEDS: HYDROcodone Bitartrate/Apap 5/325 Tablet PO (09:35)
--- NOTE | 2018-03-13 11:21 | NURSING ---
although pt had agreed to notify this nurse when he was finished w/breakfast so that a full assessment could be done, when this nurse when he returned to room he was sleeping. the hs shift nurse said that pt absolutely did not want woke up unless it was for meds.
[2018-03-13 12:36] VITALS: BP 103/59; PULSE 62; RESP 16; TEMP 36.8; O2SAT 95
[2018-03-13] MEDS: Methocarbamol 750 MG Tablet PO (12:44)
[2018-03-13] MEDS: QUEtiapine 25 MG Tablet PO (12:44)
--- NOTE | 2018-03-13 13:22 | PCM.DC ---
- Discharge Diagnoses Current Active Problems: Current Active and Chronic Problems (Last Reviewed 01/04/18 @ 16:19 by Socrates oMnte MD) Acute, mixed level of activity, alcohol withdrawal delirium (Acute) CAD (coronary artery disease) (Chronic) HTN (hypertension) (Chronic) HLD (hyperlipidemia) (Chronic) Tobacco use (Chronic) Alcohol abuse (Chronic) You will use the following diet at home:: No restrictions Your food should be the consistency of: Regular Your liquids should be the consistency of: Regular/Thin Discharge Activity: Return to Normal Activity May resume sexual activity in: No Restrictions Weight Bearing Status: Full weight bearing Call your doctor if you observe: Fever of 101 or Higher, Inability to urinate, Inability to have a bowel movement, Shortness of breath, Dizziness, Fainting spells, Chest pain, Uncontrolled pain Additional Instructions: DO NOT DRINK ALCOHOL Allergies/Adverse Reactions: Allergies No Known Allergies Allergy (Verified 03/10/18 08:17) Medications to take at Discharge ALPRAZolam [Xanax] 1 - 2 mg PO QHS PRN 05/27/17 Fluoxetine [Prozac] 20 mg PO DAILY 05/27/17 Aspirin [Aspirin, Baby] 81 mg PO DAILY@0800 10/03/17 atorvastatin 20 mg tablet 20 mg PO DAILY #90 tab 01/04/18 clopidogrel 75 mg tablet 75 mg PO DAILY #90 tab 01/04/18 metoprolol succinate ER 25 mg tablet,extended release 24 hr 25 mg PO DAILY #90 tab 01/04/18 Etodolac 400 mg PO Q8H #20 tab 03/04/18 Hydrocodone/Acetaminophen [Hydrocodone-Acetamin 5-325 mg] 5 mg PO Q6H PRN PRN 03/04/18 Nicotine [Nicoderm] 14 mg TRANSDERM. DAILY #14 patch 03/12/18 The following prescriptions were given: Nicotine [Nicoderm] 14 mg TRANSDERM. DAILY #14 patch Primary Care Physician: Kendell Lyons DO [Primary Care Provider] - Please follow up with your Primary Care Physician in: Follow-up within 3-5 days to review admission. Test Results: Test results from this visit will be discussed in further detail at your follow-up appointment, if applicable. Proposed Discharge Date: 03/13/18
--- NOTE | 2018-03-13 13:28 | DCINST_ITS ---
- Discharge Diagnoses Current Active Problems: Current Active and Chronic Problems (Last Reviewed 01/04/18 @ 16:19 by Socrates Monte MD) Acute, mixed level of activity, alcohol withdrawal delirium (Acute) CAD (coronary artery disease) (Chronic) HTN (hypertension) (Chronic) HLD (hyperlipidemia) (Chronic) Tobacco use (Chronic) Alcohol abuse (Chronic) You will use the following diet at home:: No restrictions Your food should be the consistency of: Regular Your liquids should be the consistency of: Regular/Thin Discharge Activity: Return to Normal Activity May resume sexual activity in: No Restrictions Weight Bearing Status: Full weight bearing Call your doctor if you observe: Fever of 101 or Higher, Inability to urinate, Inability to have a bowel movement, Shortness of breath, Dizziness, Fainting spells, Chest pain, Uncontrolled pain Additional Instructions: DO NOT DRINK ALCOHOL Allergies/Adverse Reactions: Allergies No Known Allergies Allergy (Verified 03/10/18 08:17) Medications to take at Discharge ALPRAZolam [Xanax] 1 - 2 mg PO QHS PRN 05/27/17 Fluoxetine [Prozac] 20 mg PO DAILY 05/27/17 Aspirin [Aspirin, Baby] 81 mg PO DAILY@0800 10/03/17 atorvastatin 20 mg tablet 20 mg PO DAILY #90 tab 01/04/18 clopidogrel 75 mg tablet 75 mg PO DAILY #90 tab 01/04/18 metoprolol succinate ER 25 mg tablet,extended release 24 hr 25 mg PO DAILY #90 tab 01/04/18 Etodolac 400 mg PO Q8H #20 tab 03/04/18 Hydrocodone/Acetaminophen [Hydrocodone-Acetamin 5-325 mg] 5 mg PO Q6H PRN PRN 03/04/18 Nicotine [Nicoderm] 14 mg TRANSDERM. DAILY #14 patch 03/12/18 The following prescriptions were given: Nicotine [Nicoderm] 14 mg TRANSDERM. DAILY #14 patch Primary Care Physician: Kendell Lyons DO [Primary Care Provider] - Please follow up with your Primary Care Physician in: Follow-up within 3-5 days to review admission. Test Results: Test results from this visit will be discussed in further detail at your follow- up appointment, if applicable. Proposed Discharge Date: 03/13/18
--- NOTE | 2018-03-16 09:11 | DS.PCM_ITS ---
Discharge Date and Diagnosis Date of Admission: 03/10/18 Date of Discharge: 03/13/18 - Primary Discharge Diagnosis #1 acute uncomplicated alcohol withdrawal #2 atypical chest pain-noncardiac, probable musculoskeletal in nature #3 elevated liver function test secondary to chronic alcohol abuse #4 coronary artery disease #5 hypertension #6 hyperlipidemia #7 chronic alcoholism - Secondary Discharge Diagnosis Chronic Problems (Last Reviewed 01/04/18 @ 16:19 by Socrates Monte MD) CAD (coronary artery disease) (Chronic) HTN (hypertension) (Chronic) HLD (hyperlipidemia) (Chronic) Tobacco use (Chronic) Alcohol abuse (Chronic) Atherosclerosis of coronary artery of [place] heart with angina pectoris (Chronic) BMS-Prox and Distal RCA 12/23/16 History of coronary artery stent placement (Chronic 12/23/16) BMS-Prox and Distal RCA 12/23/16 Smoking addiction (Chronic) Anxiety (Chronic) Noncompliance (Chronic) Hospital Course and Treatment Operations: None Procedures: None Summary of Care Provided: The patient is a 52 year old M who was seen in the emergency room at [facility] with a chief complaint of possible alcohol withdrawal and atypical left-sided chest pain. Patient is a chronic alcohol drinker, he admitted to 7 beers a day but his old records showed that he drinks more than 12 beers a day. Patient complained of chest pain that was continuous for several hours. Workup in the emergency room included an EKG which showed a sinus tachycardia at 126 without evidence of ischemic changes. CBC was unremarkable, electrolyte panel was remarkable for sodium of 132 and a chloride of 96, patient's liver enzymes were elevated, troponin was unremarkable. Chest x-ray showed possible atelectasis. Patient was given Ativan IV in the emergency room, [facility] was contacted and agreed to accept the patient for medical stabilization. Patient was admitted to [place] [address] for alcohol withdrawal, orders were entered using the medical stabilization template, repeat troponins were all normal. Patient had no complications from his alcohol withdrawal. On 03/13/18, patient was seen and examined: On examination he appeared in good health and spirits. Vital signs as documented. Skin warm and dry and without overt rashes. Neck without JVD. Lungs clear. Heart exam notable for regular rhythm, normal sounds and absence of murmurs, rubs or gallops. Abdomen unremarkable and without evidence of organomegaly, masses, or abdominal aortic enlargement. Extremities nonedematous. Neuro: Cranial nerves II through XII are grossly intact, no focal motor deficits were noted, sensation to light touch and pinprick intact. Psych: Patient is alert and oriented x3, he does not appear anxious or depressed On 03/13/18, patient requested discharge and appeared medically stable, he was given information for him to follow-up with outpatient detox services, he did not want anyone to make an appointment for the services however. - Physical Exam Vital Signs Temp Pulse Resp BP Pulse Ox 98.3 F 62 16 103/59 L 95 03/13/18 12:36 03/13/18 12:36 03/13/18 12:36 03/13/18 12:36 03/13/18 12:36 Oxygen Delivery Method Room Air Weight: 76.4 kg Body Mass Index (BMI) 20.0 Discharge Activity: Return to Normal Activity May resume sexual activity in: No Restrictions Weight Bearing Status: Full weight bearing Call your doctor if you observe: Fever of 101 or Higher, Inability to urinate, Inability to have a bowel movement, Shortness of breath, Dizziness, Fainting spells, Chest pain, Uncontrolled pain Home Medications: Medications to take at Discharge ALPRAZolam [Xanax] 1 - 2 mg PO QHS PRN 05/27/17 Fluoxetine [Prozac] 20 mg PO DAILY 05/27/17 Aspirin [Aspirin, Baby] 81 mg PO DAILY@0800 10/03/17 atorvastatin 20 mg tablet 20 mg PO DAILY #90 tab 01/04/18 clopidogrel 75 mg tablet 75 mg PO DAILY #90 tab 01/04/18 metoprolol succinate ER 25 mg tablet,extended release 24 hr 25 mg PO DAILY #90 tab 01/04/18 Etodolac 400 mg PO Q8H #20 tab 03/04/18 Hydrocodone/Acetaminophen [Hydrocodone-Acetamin 5-325 mg] 5 mg PO Q6H PRN PRN 03/04/18 Nicotine [Nicoderm] 14 mg TRANSDERM. DAILY #14 patch 03/12/18 Following Prescrptions Were Given to Patient: Nicotine [Nicoderm] 14 mg TRANSDERM. DAILY #14 patch Primary Care Physician: Kendell Lyons DO [Primary Care Provider] - Please follow up with your Primary Care Physician in: Follow-up within 3-5 days to review admission. Please Follow Up With: [facility] When: Follow with [facility] for next step in outpatient withdrawal care. Disposition: Home Minutes spent on discharge:: 32 Patient Condition:: Stable Medical Necessity - Tobacco Use Smoking Status: Current every day smoker Tobacco Use: Cigarettes Meaningful Use Info Meaningful Use Diagnoses (Choose all that apply): None applicable Code Visit Inpatient E&M: 35905 Disch Hosp
== END 2018-03-13 13:55 | disposition home or self-care (01) | DRG 897 ==
LOC: ED 11:40 → PCU 12:09 → MS2 03-13 04:54 → PCU 03-13 04:54
PROVIDERS: Admitting Provider Family Medicine; Emergency Provider Emergency Medicine; Family Provider Family Medicine; PCP Family Medicine; Visit Provider Internal Medicine
DX: F10.239 Alcohol dependence with withdrawal, unspecified (principal); E87.1 Hypo-osmolality and hyponatremia; R07.89 Other chest pain; I25.10 Atherosclerotic heart disease of native coronary artery without angina pectoris; I10 Essential (primary) hypertension; E78.5 Hyperlipidemia, unspecified; F17.210 Nicotine dependence, cigarettes, uncomplicated; R74.8 Abnormal levels of other serum enzymes; F41.9 Anxiety disorder, unspecified; F32.9 Major depressive disorder, single episode, unspecified; Z95.5 Presence of coronary angioplasty implant and graft; I25.2 Old myocardial infarction; Y90.0 Blood alcohol level of less than 20 mg/100 ml
CPT/HCPCS: 36415; 71046; 80053; 80061; 80320; 83735; 84100; 84484; 85025; 93005; 97802; 99285; 99406; J7030; A4216; G0480

== ENCOUNTER 2018-03-22 22:10 | Emergency (ER) | payer BC, SELFPAY ==
[2017-01-12 13:36] VITALS: BMI 26.6
[2018-03-22 22:11] VITALS: BP 104/77; PULSE 132; RESP 14; TEMP 36.7; O2SAT 98; BMI 22.9
--- NOTE | 2018-03-22 22:23 | ED.RN ---
recent admission for detox from [facility]. pt arrives to ed smelling like alcohol. pt was asked how many drinks he had tonight. pt stated 2 beers initially then changed it to 3. pt was asked if he's been falling frequently and he states yes. howie walker, rn [id number]
--- NOTE | 2018-03-22 22:42 | CT_ITS ---
STUDY: CT CHEST WITH CONTRAST REASON FOR EXAM: Male, 52 years old. Back pain for one month. Patient has left flank bruising. Patient fell 3 weeks ago. RADIATION DOSAGE (If Supplied By Facility): CTDIvol = ( 14.02 ) mGy, DLP = ( 1289.39 ) mGycm TECHNIQUE: Transaxial imaging was performed following intravenous administration of Isovue 300 100ML IV. Individualized dose optimization techniques were used for this CT. COMPARISON: Prior comparable comparison studies are not available for review at this time. FINDINGS: There is hyperinflation of the lungs consistent with chronic obstructive lung disease (COPD). There are small lucencies visible within the right upper lobe that may represent sequela paraseptal emphysema. There is also a peripheral lucencies in the left upper lobe as well. There is no demonstrated pleural abnormality. Normal heart and pericardium. There are calcifications of the coronary arteries. Normal mediastinum. Normal hilar regions. Normal enhanced pulmonary arteries. There is atherosclerotic tortuosity of the aortic arch and descending thoracic aorta. Maximum transverse dimension of the ascending thoracic aorta measures approximately 3.8 cm in greatest transverse dimension. There is a subacute ununited fracture of the posterior lateral left eighth rib. There is multilevel spondylosis of lower thoracic spine. There is no demonstrated abnormality of the visualized upper abdomen. CT/Chest WITH Contrast IMPRESSION: 1. No CT evidence of acute cardiopulmonary disease. 2. Mild emphysema. 3. Subacute ununited posterior left-sided rib fracture. Electronically Signed: Carole Lopez MD at 0:34 EST , Service support ,
--- NOTE | 2018-03-22 22:42 | CT_ITS ---
STUDY: CT ABDOMEN AND PELVIS WITH CONTRAST REASON FOR EXAM: Male, 52 years old. Back pain for one month. Patient fell 3 weeks ago. RADIATION DOSAGE (If Supplied By Facility): CTDIvol = ( 14.02 ) mGy, DLP = ( 1289.39 ) mGycm TECHNIQUE: Transaxial images were obtained from the dome of the diaphragm to the symphysis pubis without oral contrast. Isovue 300 100ML IV was administered. Sagittal and coronal images were reconstructed. Individualized dose optimization techniques were used for this CT. COMPARISON: None. FINDINGS: The visualized lung bases are unremarkable. The visualized portions of the heart are within normal limits. There is decreased attenuation of the liver consistent with steatosis. There is a solitary gallstone. Normal spleen. Normal pancreas. Normal bilateral adrenal glands. Normal right kidney. Normal left kidney. There is narrowing of the gastric body with relative dilatation of the proximal gastric body and gastric fundus and the distal gastric body. There is no evidence for dilated bowel, ascites or pneumoperitoneum. The small bowel has a grossly normal appearance. There are multiple colonic diverticula consistent with diverticulosis. The appendix is visualized and appears normal. There is diffuse atherosclerotic calcification of the abdominal aorta, without a demonstrated aneurysm. Normal inferior vena cava. Normal retroperitoneum. Normal urinary bladder. Normal visualized prostate gland. Normal abdominal wall. There are diffuse degenerative changes of the visualized lumbar spine. There is deformity of the posterior left-sided rib and may be the result of a old rib fracture. CT/Abdomen/Pelvis W IV Cont ONLY IMPRESSION: 1. No CT evidence of acute intra-abdominal disease. 2. Hepatic steatosis. 3. Colonic diverticulosis. 4. Apparent narrowing of the mid gastric body suggesting possible stricture. 5. Cholelithiasis. Electronically Signed: Carole Lopez MD at 0:21 EST , Service support ,
[2018-03-22] MEDS: Morphine 4 MG/ML Syringe IV (23:09)
[2018-03-22] MEDS: LORazepam 2 MG/ML Syringe 1 MG IV (23:09)
[2018-03-22] MEDS: Ondansetron 4 MG/2 ML Vial IV (23:09)
[2018-03-22] MEDS: 0.9% Normal Saline 1,000 ML 999 ML IV (23:11)
[2018-03-22 23:15] LABS: Absolute Lymphocyte Count 2.03 X10^3/ul (0.83-4.51); Absolute Neutrophil Count 6.2 X10^3/uL (2.0-7.7); Basophil# 0.03 X10^3/uL; Basophil% 0.3 % (0-1); Eosinophil# 0.18 X10^3/uL; Hematocrit 40.8 % (40-54); Hemoglobin 14.6 g/dl (13.0-16.5); Lymphocyte # 2.03 X10^3/ul (4.0); Mean Corp Hgb Conc 35.8 g/gl (32-36); Mean Corpuscular Hgb 32.6 pg (27.0-32.0); Mean Corpuscular Volume 91.1 fL (80-94); Mean Platelet Vol. 9.2 fl (6.2-12.0); Monocyte# 0.75 X10^3/uL; Monocyte% 8.1 % (0-10); Neutrophil % 67.3 % (47-70); Platelet Count 376 K/mm3 (150-450); RBC Distribution Width CV 16.1 % (11.6-14.6); RBC Distribution Width SD 52.6 fl (35.1-43.9); Red Blood Count 4.48 M/mm3 (4.6-6.2); White Blood Count 9.2 K/mm3 (4.4-11.0)
[2018-03-22 23:21] LABS: POSITIVE COUNT NO; POSITIVE DIFFERENTIAL NO; POSITIVE MORPHOLOGY NO
[2018-03-22 23:23] LABS: International Normalized Ratio 0.9; Prothrombin Time (Protime)PT. 12.1 SECONDS (11.7-14.9)
[2018-03-22 23:30] LABS: ALB/GLOB Ratio 1.1 RATIO (0.9-2.4); AST(SGOT) 40 U/L (15-37); Alanine Aminotransfer ALT/SGPT 42 U/L (16-61); Albumin, Serum 3.6 g/dL (3.2-5.0); Alkaline Phosphatase 97 U/L (45-117); Anion Gap 13 (5-15); BUN 8 mg/dL (7-18); BUN/Creat Ratio 14.2 RATIO (10-20); Calcium,Total 8.1 mg/dL (8.5-10.1); Chloride 100 mmol/L (98-107); Creatinine, Serum 0.56 mg/dL (0.70-1.30); EST Glomerular Filtration Rate 161 mL/min (>60); Est Glom Filt Rate - Afr Amer 195 mL/min (>60); Estimated Creatinine Clearance 181.81 ml/min; Globulin 3.4 g/dL (2.2-4.2); Glucose 79 mg/dL (74-106); Potassium 3.9 mmol/L (3.5-5.1); Sodium Level 135 mmol/L (136-145)
[2018-03-23 00:36] VITALS: BP 126/83; PULSE 97; RESP 18; O2SAT 97
--- NOTE | 2018-03-23 01:05 | ED.DEP ---
ED Disposition - Plan for ED Patient: Instructions: ED Fx Rib Referrals: Kendell Lyons DO [Primary Care Provider] - Jourdan Miller [NON-STAFF] -
[2018-03-23] MEDS: oxyCODONE 5 MG Tablet PO (01:13)
--- NOTE | 2018-03-23 07:48 | ED.DCSUM_ITS ---
- ER Visit Summary Date of Service: 03/23/18 Chief Complaint: Back pain History of Present Illness: The patient is a 52 M who presents with back pain. This is been present for 3 weeks. It began after he was coming down off a stepladder missed the last step and fell hitting the back of his left chest on the edge of a table. I saw him at the time of fall and rib series was negative. He was also recently admitted for alcohol withdrawal. His pain is worse with movement or palpation. He also complains of some diarrhea. No shortness of breath. Physical Examination: Initial heart rate 132 Moist mucous membranes Heart regular rhythm tachycardia Lungs are clear Patient has left posterior thoracic tenderness and bruising as well as some ecchymosis over the left flank Abdomen is soft nontender and nondistended Test Results: CBC normal. BMP normal. INR normal. Alcohol level 215. CTs of the chest abdomen and pelvis shows a subacute ununited posterior left rib fracture. CT the abdomen and pelvis showed no acute disease. Emergency Department Course and Treatment: Patient was treated here with analgesics and IV Ativan. He is improved on reevaluation but noted some pain was beginning to return. He was given oxycodone. Given that he has nonunion of rib fracture with ongoing pain of weeks I did give him contact information for cardiothoracic surgeon in [place]- Dr. Miller. He understands return for new or worsening symptoms. She was given a prescription for Percocet for pain control. Patient discharged Treatment Plan: [] Disposition: Discharge Impression: Left eighth rib fracture This note was generated with [employer] dictation software. It may contain incorrect words, spelling, and punctuation that were not noted in review of the chart prior to signing ED Disposition - Plan for ED Patient: Disposition: Home or Assisted Living Instructions: ED Fx Rib Prescriptions: Oxycodone HCl/Acetaminophen [Percocet 5/325] 1 tab PO Q6H PRN PRN 3 Days #12 tab PRN Reason: Pain Referrals: Jourdan Miller [NON-STAFF] - Kendell Lyons DO [Primary Care Provider] -
== END 2018-03-23 01:16 | disposition home or self-care (01) ==
LOC: ED 22:43
PROVIDERS: Emergency Provider Emergency Medicine; Family Provider Family Medicine; PCP Family Medicine
DX: S22.32XA Fracture of one rib, left side, initial encounter for closed fracture (principal); W11.XXXA Fall on and from ladder, initial encounter; Y93.9 Activity, unspecified; Y92.9 Unspecified place or not applicable; R19.7 Diarrhea, unspecified; I25.10 Atherosclerotic heart disease of native coronary artery without angina pectoris; I10 Essential (primary) hypertension; E78.00 Pure hypercholesterolemia, unspecified; Z79.82 Long term (current) use of aspirin; Z79.899 Other long term (current) drug therapy; Z72.0 Tobacco use
CPT/HCPCS: 71260; 74177; 80053; 80320; 85025; 85610; 86850; 86900; 96361; 96374; 96375; 99284; J7030; Q9967; A4216; G0480; J2405

== ENCOUNTER 2018-03-24 10:49 | Emergency (ER) | payer BC, SELFPAY ==
[2017-01-12 13:36] VITALS: BMI 26.6
[2018-03-24 10:52] VITALS: BP 83/50; PULSE 79; RESP 18; TEMP 36.5; O2SAT 99; BMI 23.7
--- NOTE | 2018-03-24 11:23 | EKG12_ITS ---
Test Reason : Blood Pressure : / mmHG Vent. Rate : 136 BPM Atrial Rate : 136 BPM P-R Int : 140 ms QRS Dur : 068 ms QT Int : 360 ms P-R-T Axes : 071 004 076 degrees QTc Int : 541 ms Sinus tachycardia with occasional Premature ventricular complexes and Fusion complexes Otherwise normal ECG Confirmed by ED VENTURA, GURPREET ([id number]), photograph editor ASHLEY SHIELDS ([id number]) on 03/28/2018 10:34:52 AM Referred By: PAM Confirmed By:GURPREET WARD MD
[2018-03-24] MEDS: 0.9% Normal Saline 1,000 ML 1000 ML IV (11:45)
[2018-03-24] MEDS: proMETHazine 25 MG/ML Syringe 12.5 MG IV (11:45)
[2018-03-24] MEDS: LORazepam 2 MG/ML Syringe 1 MG IV (11:46)
[2018-03-24 12:33] LABS: Absolute Neutrophil Count 11.9 X10^3/uL (2.0-7.7); Basophil# 0.01 X10^3/uL; Basophil% 0.1 % (0-1); Hematocrit 41.4 % (40-54); Hemoglobin 13.8 g/dl (13.0-16.5); Lymphocyte % 4.6 % (19-41); Mean Corp Hgb Conc 33.3 g/gl (32-36); Mean Corpuscular Hgb 31.4 pg (27.0-32.0); Mean Corpuscular Volume 94.1 fL (80-94); Mean Platelet Vol. 9.8 fl (6.2-12.0); Monocyte% 4.6 % (0-10); Neutrophil # 11.89 X10^3/uL (2.7-7.7); Neutrophil % 90.5 % (47-70); Platelet Count 394 K/mm3 (150-450); RBC Distribution Width CV 15.8 % (11.6-14.6); RBC Distribution Width SD 54.4 fl (35.1-43.9); White Blood Count 13.1 K/mm3 (4.4-11.0)
[2018-03-24 12:37] LABS: Differential Indicated SCAN CRITERIA MET; POSITIVE COUNT NO; POSITIVE DIFFERENTIAL YES; POSITIVE MORPHOLOGY NO
[2018-03-24 12:47] LABS: BUN 32 mg/dL (7-18); Creatinine, Serum 1.06 mg/dL (0.70-1.30); EST Glomerular Filtration Rate 78 mL/min (>60); Estimated Creatinine Clearance 97.43 ml/min; Glucose 159 mg/dL (74-106)
[2018-03-24 12:48] LABS: ALB/GLOB Ratio 0.9 RATIO (0.9-2.4); AST(SGOT) 30 U/L (15-37); Alanine Aminotransfer ALT/SGPT 41 U/L (16-61); Albumin, Serum 3.4 g/dL (3.2-5.0); Alkaline Phosphatase 78 U/L (45-117); Anion Gap 12 (5-15); BUN/Creat Ratio 30.2 RATIO (10-20); Calcium,Total 8.8 mg/dL (8.5-10.1); Chloride 103 mmol/L (98-107); Est Glom Filt Rate - Afr Amer 94 mL/min (>60); Globulin 3.6 g/dL (2.2-4.2); Lipase 92 U/L (73-393); Potassium 3.9 mmol/L (3.5-5.1); Sodium Level 140 mmol/L (136-145)
--- NOTE | 2018-03-24 12:49 | ED.RN ---
LACTIC 3.4 PER LAB, MD AND PRIMARY RN NOTIFIED
[2018-03-24 12:50] LABS: Lactic Acid 3.4 mmol/L (0.4-2.0)
[2018-03-24 13:02] LABS: Differential Comment SCANNED
[2018-03-24 13:24] VITALS: BP 120/58; PULSE 127; RESP 15; O2SAT 97
--- NOTE | 2018-03-24 13:47 | ED.VISSUMM ---
- ER Visit Summary Date of Service: 03/24/18 Chief Complaint: [Vomiting blood] History of Present Illness: The patient is a 52 M [presents the emergency department complaint of vomiting blood since yesterday. Patient states that he is an alcoholic and has been drinking however his last drink was 2 days ago. Patient started vomiting yesterday. He is vomiting frequently and initially was dark vomitus but now it is more bright red with clots. Patient is never had this happen before. No history of varicocele bleed. Patient is currently on Plavix. Patient has history of coronary artery disease, hypertension, and alcohol abuse. Patient also believes he might be going through DTs.] Physical Examination: [HEENT-PERRLA, EOMI. Cranial nerves II through XII grossly intact. TMs clear. Mucous membranes moist. No adenopathy. Cardiovascular-regular and tachycardic. No murmurs auscultated. Lungs-clear to auscultation, chest wall stable without crepitus or subcu emphysema Abdomen-normoactive bowel sounds, soft, nontender, no rebound or rigidity, no peritoneal signs. Extremities-intact ?4, normal range of motion, normal pulses, atraumatic] Test Results: [EKG obtained showed a sinus tachycardia with a ventricular rate of 136 bpm with occasional PVCs. CBC with differential obtained showed a white blood cell count of 13.1, hemoglobin 13.8, hematocrit 44, placed 394. Chemistries unremarkable. Troponin is less than 0.015. LFTs were normal. Lactate was 3.4. PT/INR pending.] Emergency Department Course and Treatment: [Patient initially was given a liter normal same fluid bolus. Patient was started on a Protonix drip. Patient also was ordered a octreotide drip.] Treatment Plan: [Initially discussed case with Dr. Gayla Corea who is the surgeon on-call who asked that we transfer patient to a larger center given that we do not have GI backup and he might have esophageal bleeding. I discussed case with [facility] at the request of the patient who accepted transfer of the patient.] Disposition: [Transfer to [facility]] Impression: [Upper GI bleed Alcohol withdrawal] This note was generated with [employer] dictation software. It may contain incorrect words, spelling, and punctuation that were not noted in review of the chart prior to signing ED Disposition - Plan for ED Patient: Referrals: Kendell Lyons DO [Primary Care Provider] -
--- NOTE | 2018-03-24 13:50 | ED.DCSUM_ITS ---
- ER Visit Summary Date of Service: 03/24/18 Chief Complaint: [Vomiting blood] History of Present Illness: The patient is a 52 M [presents the emergency department complaint of vomiting blood since yesterday. Patient states that he is an alcoholic and has been drinking however his last drink was 2 days ago. Patient started vomiting yesterday. He is vomiting frequently and initially was dark vomitus but now it is more bright red with clots. Patient is never had this happen before. No history of varicocele bleed. Patient is currently on Plavix. Patient has history of coronary artery disease, hypertension, and alcohol abuse. Patient also believes he might be going through DTs.] Physical Examination: [HEENT-PERRLA, EOMI. Cranial nerves II through XII grossly intact. TMs clear. Mucous membranes moist. No adenopathy. Cardiovascular-regular and tachycardic. No murmurs auscultated. Lungs-clear to auscultation, chest wall stable without crepitus or subcu emphysema Abdomen-normoactive bowel sounds, soft, nontender, no rebound or rigidity, no peritoneal signs. Extremities-intact ?4, normal range of motion, normal pulses, atraumatic] Test Results: [EKG obtained showed a sinus tachycardia with a ventricular rate of 136 bpm with occasional PVCs. CBC with differential obtained showed a white blood cell count of 13.1, hemoglobin 13.8, hematocrit 44, placed 394. Chemistries unremarkable. Troponin is less than 0.015. LFTs were normal. L actate was 3.4. PT/INR pending.] Emergency Department Course and Treatment: [Patient initially was given a liter normal same fluid bolus. Patient was started on a Protonix drip. Patient also was ordered a octreotide drip.] Treatment Plan: [Initially discussed case with Dr. Gayla Corea who is the surgeon on-call who asked that we transfer patient to a larger center given that we do not have GI backup and he might have esophageal bleeding. I discussed case with [facility] at the request of the patient who accepted transfer of the patient.] Disposition: [Transfer to [facility]] Impression: [Upper GI bleed Alcohol withdrawal] This note was generated with [employer] dictation software. It may contain incorrect words, spelling, and punctuation that were not noted in review of the chart prior to signing ED Disposition - Plan for ED Patient: Referrals: Kendell Lyons DO [Primary Care Provider] -
[2018-03-24 14:20] LABS: International Normalized Ratio 0.9; Partial Thromboplast Time 25.9 Seconds (24.1-36.2); Prothrombin Time (Protime)PT. 12.2 SECONDS (11.7-14.9)
[2018-03-24 14:27] VITALS: BP 112/82; PULSE 115; RESP 21; O2SAT 97
[2018-03-24] MEDS: fentaNYL 100 MCG/2 ML Ampul 50 MCG IV (14:40)
[2018-03-24 15:00] LABS: Alcohol, Blood (Medical)-Serum < 3.0 mg/dL
== END 2018-03-24 14:51 | disposition short-term general hospital (02) ==
LOC: ED 12:20
PROVIDERS: Emergency Provider Emergency Medicine; Family Provider Family Medicine; PCP Family Medicine
DX: K92.2 Gastrointestinal hemorrhage, unspecified (principal); F10.239 Alcohol dependence with withdrawal, unspecified; I49.3 Ventricular premature depolarization; I25.10 Atherosclerotic heart disease of native coronary artery without angina pectoris; I25.2 Old myocardial infarction; I10 Essential (primary) hypertension; Z79.02 Long term (current) use of antithrombotics/antiplatelets; Z79.82 Long term (current) use of aspirin; Z79.899 Other long term (current) drug therapy; Z72.0 Tobacco use
CPT/HCPCS: 80053; 80320; 83605; 83690; 84484; 85025; 85610; 85730; 93005; 96361; 96365; 96366; 96368; 96374; 96375; 99285; J7030; A4216; G0480

== ENCOUNTER 2018-04-03 22:52 | Emergency (ER) | payer BC, SELFPAY ==
[2017-01-12 13:36] VITALS: BMI 26.6
[2018-04-03 22:53] VITALS: BP 118/76; PULSE 74; RESP 16; TEMP 35.9; O2SAT 100; BMI 22.5
--- NOTE | 2018-04-03 23:01 | RAD_ITS ---
STUDY: X-RAY - UNILATERAL RIBS ( RIGHT ) WITH CHEST REASON FOR EXAM: Male, 52 years old. Trauma TECHNIQUE - RIBS: 4 view(s) of the ribs. TECHNIQUE - CHEST: Single PA view of the chest. COMPARISON: Prior chest study of March 10, 2018 FINDINGS - RIBS: Normal visualized ribs without a demonstrated fracture. FINDINGS - CHEST: The lungs are clear and expanded. There is no demonstrated pleural abnormality. Normal size heart. Normal mediastinum and stephen. Normal visualized pulmonary arteries. Normal visualized aortic arch and descending thoracic aorta. Normal visualized thoracic spine. Normal visualized ribs, clavicles, and shoulders. There is no demonstrated abnormality of the visualized soft tissue structures of the upper abdomen. RAD/Ribs Uni Min 3V w/PA Chest IMPRESSION: RIBS: Normal x-ray examination of the ribs. CHEST: Normal x-ray examination of the chest. Electronically Signed: Manuel Gold MD at 23:28 EST , Service support ,
--- NOTE | 2018-04-03 23:04 | ED.DCSUM_ITS ---
- ER Visit Summary Date of Service: 04/03/18 Chief Complaint: Right chest injury History of Present Illness: The patient is a 52 M presents to the emergency department with right chest injury. Patient states he got up from his bed. He states that he was going to walk out of his room, and lost his balance. He stepped and fell. He struck his right posterior ribs against the bed frame. Since then, has had increasing pain. He states that he has had rib fractures on the left and this feels similar. He denies any shortness of breath. Denies any fevers or chills. He states otherwise, he is been in his normal state of health. Physical Examination: Vital signs reviewed General: Well-nourished, well-developed Head: Normocephalic, atraumatic Eyes: Pupils equal and reactive, extraocular muscles intact Neck, supple, no lymphadenopathy Heart: Regular rate and rhythm Respiratory: No distress, tenderness over the right posterior ribs without step- off, deformity, or crepitus Abdomen: Soft, nontender, nondistended, no peritoneal signs Back: Nontender Extremities: Nontender, no edema, no cords Skin: Normal color no rash Neuro: Alert and oriented, no focal or lateralizing deficits Test Results: [] Emergency Department Course and Treatment: Plain films were obtained of the chest and ribs. There is no evidence of displaced rib fracture, pneumothorax, or pulmonary contusion. I do suspect patient likely has a rib contusion. He will be given 24 hours of analgesics and counseled on deep breathing, coughing, and following up with his primary care for reevaluation. He is comfortable with this plan of care. Treatment Plan: [] Disposition: Discharge Impression: Right rib contusion status post fall This note was generated with [employer] dictation software. It may contain incorrect words, spelling, and punctuation that were not noted in review of the chart prior to signing ED Disposition - Plan for ED Patient: Instructions: ED Contusion Vs Minor Fx Rib Referrals: Kendell Lyons DO [Primary Care Provider] -
[2018-04-03] MEDS: HYDROcodone Bitartrate/Apap 5/325 Tablet PO ×2 (23:16→23:44)
== END 2018-04-03 23:45 | disposition home or self-care (01) ==
LOC: ED 23:07
PROVIDERS: Emergency Provider Emergency Medicine; Family Provider Family Medicine; PCP Family Medicine
DX: S20.211A Contusion of right front wall of thorax, initial encounter (principal); Z72.0 Tobacco use; Z79.82 Long term (current) use of aspirin; Z79.899 Other long term (current) drug therapy; W18.30XA Fall on same level, unspecified, initial encounter; Y93.01 Activity, walking, marching and hiking; Y92.003 Bedroom of unspecified non-institutional (private) residence as the place of occurrence of the external cause; Y99.9 Unspecified external cause status
CPT/HCPCS: 71101; 99283

== ENCOUNTER 2018-04-05 21:50 | Inpatient (IN) | payer BC, SELFPAY ==
[2017-01-12 13:36] VITALS: BMI 26.6
[2018-04-05 21:51] VITALS: BP 90/62; PULSE 115; RESP 19; TEMP 36.8; O2SAT 95; BMI 22.6
--- NOTE | 2018-04-05 22:12 | EKG12_ITS ---
Test Reason : Blood Pressure : / mmHG Vent. Rate : 080 BPM Atrial Rate : 080 BPM P-R Int : 140 ms QRS Dur : 082 ms QT Int : 372 ms P-R-T Axes : 059 -01 066 degrees QTc Int : 429 ms Normal sinus rhythm Normal ECG Confirmed by ED VENTURA, GURPREET ([id number]), writer editor MATHEUS CHAMORRO ([id number] on 04/06/2018 3:42:27 PM Referred By: Jourdan Alicia Confirmed By:GURPREET WARD MD
[2018-04-05 22:27] LABS: Absolute Lymphocyte Count 2.41 X10^3/ul (0.83-4.51); Absolute Neutrophil Count 5.9 X10^3/uL (2.0-7.7); Basophil# 0.03 X10^3/uL; Basophil% 0.3 % (0-1); Eosinophil# 0.35 X10^3/uL; Eosinophils% 3.8 % (0-5); Hematocrit 40.7 % (40-54); Hemoglobin 13.7 g/dl (13.0-16.5); Lymphocyte # 2.41 X10^3/ul (4.0); Lymphocyte % 26.1 % (19-41); Mean Corp Hgb Conc 33.7 g/gl (32-36); Mean Corpuscular Hgb 32.5 pg (27.0-32.0); Mean Corpuscular Volume 96.7 fL (80-94); Mean Platelet Vol. 9.1 fl (6.2-12.0); Monocyte# 0.51 X10^3/uL; Monocyte% 5.5 % (0-10); Neutrophil # 5.92 X10^3/uL (2.7-7.7); Neutrophil % 64.2 % (47-70); Platelet Count 325 K/mm3 (150-450); RBC Distribution Width CV 16.8 % (11.6-14.6); RBC Distribution Width SD 59.7 fl (35.1-43.9); Red Blood Count 4.21 M/mm3 (4.6-6.2); White Blood Count 9.2 K/mm3 (4.4-11.0)
[2018-04-05 22:29] LABS: POSITIVE COUNT NO; POSITIVE DIFFERENTIAL NO; POSITIVE MORPHOLOGY NO
[2018-04-05 22:40] LABS: Anion Gap 14 (5-15); BUN 6 mg/dL (7-18); BUN/Creat Ratio 6.1 RATIO (10-20); Calcium,Total 8.3 mg/dL (8.5-10.1); Chloride 101 mmol/L (98-107); Creatinine, Serum 0.99 mg/dL (0.70-1.30); EST Glomerular Filtration Rate 85 mL/min (>60); Est Glom Filt Rate - Afr Amer 102 mL/min (>60); Estimated Creatinine Clearance 101.23 ml/min; Glucose 98 mg/dL (74-106); Potassium 4.1 mmol/L (3.5-5.1); Sodium Level 137 mmol/L (136-145)
--- NOTE | 2018-04-05 22:46 | ED.DCSUM_ITS ---
- ER Visit Summary Date of Service: 04/05/18 Chief Complaint: Palpitations History of Present Illness: The patient is a 52 M who states that 1 hour ago he is trying to get ready for bed when he felt his heart racing and he was very anxious. He denies any chest pain. He has a history of coronary artery disease and is status post PCI x2. He has a history of alcoholism and is a tobacco user. He also has history of hypertension high cholesterol. Physical Examination: Afebrile vital signs stable Gen: Well-nourished well-developed Head: Normocephalic atraumatic Eyes: Perrl EOMI ENT: TMs clear no rhinorrhea moist mucous membranes Neck: Supple no lymphadenopathy no JVD nontender CVS: Regular rate rhythm no murmurs normal S1-S2 Respiratory: No distress clear to auscultation bilaterally chest nontender Abdomen: Soft nontender nondistended normal bowel sounds no masses Back: Nontender Extremity: Nontender no edema Skin: Normal color no rash Neuro: alert orientated ?3 CN II-XII intact normal strength sensation reflexes gait cerebellar Psych: Anxious Test Results: EKG shows a sinus rhythm at a rate of 80. Basic labs showed an elevated troponin of 0.290. Alcohol level is 190. Emergency Department Course and Treatment: While the patient is on the monitor when I was interviewing him initially he tells me his heart is racing out of his chest. I informed him that his heart rate was about 90. This surprised him. Patient was observed on the monitor. Patient received Vistaril for pain. He also received aspirin. His troponin is elevated and we gave him Lovenox. I spoke with Dr. Monte and Dr. Alicia. Plan is admission. Impression: 1. NSTEMI This note was generated with [employer] dictation software. It may contain incorrect words, spelling, and punctuation that were not noted in review of the chart prior to signing ED Disposition - Plan for ED Patient: Disposition: Home or Assisted Living Instructions: ED Palpitations Referrals: Kendell Lyons, [Primary Care Provider] - As Needed
[2018-04-05] MEDS: hydrOXYzine PAM 25 MG Capsule 50 MG PO (22:48)
[2018-04-05 22:58] VITALS: BP 107/71; PULSE 84; RESP 16; O2SAT 98
--- NOTE | 2018-04-05 23:07 | RAD_ITS ---
STUDY: X-RAY CHEST REASON FOR EXAM: Male, 52 years old. Rib pain. TECHNIQUE: Single AP portable view of the chest. COMPARISON: None. FINDINGS: The lungs are somewhat hyperinflated. There is minimal stranding or scarring in the left lung base. No focal infiltrate is seen. There is no demonstrated pleural abnormality. Normal size heart. Normal mediastinum and stephen. Normal visualized pulmonary arteries. Normal visualized aortic arch and descending thoracic aorta. The thoracic spine is suboptimally seen. Normal visualized ribs, clavicles, and shoulders. There is no demonstrated abnormality of the visualized soft tissue structures of the upper abdomen. RAD/Chest 1 View (Portable) IMPRESSION: No active pulmonary disease. Electronically Signed: Rolando Matute MD at 23:27 EST Tel , Service support ,
[2018-04-05] MEDS: Aspirin 81 MG TAB.CHEW 324 MG PO (23:15)
[2018-04-05 23:20] VITALS: BP 94/79; PULSE 82; RESP 15; O2SAT 97
[2018-04-05] MEDS: Enoxaparin 80 MG/0.8 ML Syringe SC (23:40)
--- NOTE | 2018-04-05 23:45 | ED.RN ---
pt refusing to wear oxygen nasal cannula.
[2018-04-06] VITALS (20 sets, daily range): BP systolic 105–143; BP diastolic 52–91; PULSE 70–90; RESP 16–18; TEMP 36.4–37.3; O2SAT 93–97; BMI 21.9
--- NOTE | 2018-04-06 00:06 | PCM.HP.STD ---
Problem List (1) NSTEMI (non-ST elevated myocardial infarction) Status: Acute History of Present Illness Date of Admission: 04/05/18 Chief Complaint: palpitations The patient is a 52 year old M presents with palpitations. Patient was in his normal state of health, but today he had 3 beers between 4 and 6. Was eating [employer] and then experienced palpitations. He had some diaphoresis and treated with that but no chest pain. Patient presented to the emergency room for evaluation. In the emergency room, patient had a chest x-ray showed no acute process, however, his troponins were checked and was 0.29. Dr. Monte of cardiology was contacted and patient received aspirin as well as therapeutic dosing of Lovenox. Patient is currently symptom-free at this time. Patient does have a history of coronary artery disease and heart attacks but he had chest pain during those occurrences and he did not have a this time. Patient was seen here on the for GI bleed. Was transferred to [facility] and admitted there for 4 days. He had no further bleeding. He recently had an endoscopy outpatient with a physician whom he is not sure of the name and was told that there was no ulcers. He was told that biopsies were performed but does not know the results of the biopsies at this time. He was advised to hold off on his aspirin and Plavix which he has subsequently resumed. [] Past Medical History Past Medical History (Chronic Problems): Chronic Problems (Last Reviewed 04/06/18 @ 00:08 by Jourdan Alicia DO) CAD (coronary artery disease) (Chronic) HTN (hypertension) (Chronic) HLD (hyperlipidemia) (Chronic) Tobacco use (Chronic) Alcohol abuse (Chronic) Atherosclerosis of coronary artery of [place] heart with angina pectoris (Chronic) BMS-Prox and Distal RCA 12/23/16 History of coronary artery stent placement (Chronic 12/23/16) BMS-Prox and Distal RCA 12/23/16 Smoking addiction (Chronic) Anxiety (Chronic) Noncompliance (Chronic) Medical History: Medical History (Last Reviewed 04/06/18 @ 00:08 by Jourdan Alicia DO) Atherosclerosis of coronary artery of [place] heart with angina pectoris (Chronic) I25.119 BMS-Prox and Distal RCA 12/23/16 Smoking addiction (Chronic) F17.200 Anxiety (Chronic) F41.9 Noncompliance (Chronic) Z91.19 STEMI (ST elevation myocardial infarction) (Resolved) 12/23/16 STEMI (ST elevation myocardial infarction) I21.3 12/23/16 Allergies No Known Allergies Allergy (Verified 04/05/18 21:54) Home Medications: Ambulatory Orders Medication Instructions Recorded Fluoxetine [Prozac] 20 mg PO DAILY 05/27/17 Aspirin [Aspirin, Baby] 81 mg PO DAILY@0800 10/03/17 clopidogrel 75 mg tablet 75 mg PO DAILY #90 tab 01/04/18 metoprolol succinate ER 25 mg 25 mg PO DAILY #90 tab 01/04/18 tablet,extended release 24 hr Atorvastatin Calcium [Lipitor] 80 mg PO DAILY 03/24/18 Surgical History: Surgical History (Last Reviewed 04/06/18 @ 00:09 by Jourdan Alicia DO) History of coronary artery stent placement (Chronic) Onset Date: 12/23/16 Z95.5 BMS-Prox and Distal RCA 12/23/16 History of left heart catheterization Z98.890 12/23/16- PCI with BM stent to prox RCA & distal RCA; 01/12/17- patent BM stents; Surgical History: - - PCI x 2, T+A, L inguinal hernia repair. Psychiatric History: Anxiety, Depression Smoking Status: Current every day smoker - *Family History Sibling Family History: Family History (Last Reviewed 04/06/18 @ 00:09 by Jourdan Alicia DO) Father Myocardial infarction, Onset Age: 36 Mother Myocardial infarction Cancer History Items: - - Patient notes a history of a sister who underwent a CABG early in life. Maternal Family History: Family History (Last Reviewed 04/06/18 @ 00:09 by Jourdan Alicia DO) Father Myocardial infarction, Onset Age: 36 Mother Myocardial infarction Cancer History Items: - - Patient notes a maternal family history of coronary disease with at least 6 stents during her lifetime. Paternal Family History: Family History (Last Reviewed 04/06/18 @ 00:09 by Jourdan Alicia DO) Father Myocardial infarction, Onset Age: 36 Mother Myocardial infarction Cancer History Items: - - Patient notes a paternal family history of heart disease, passing secondary to fatal CO at age 36. Review of Systems Constitutional: Reports: Anorexia. Denies: Chills, Fever Eyes: Reports: Blurred vision - Chronic as patient feels that he needs glasses.. Denies: Double vision HEENT: Denies: Head Aches, Sinus Congestion, Sinus Drainage Cardiovascular: Reports: Palpitations. Denies: Chest Pain, Edema Respiratory: Denies: Cough, Shortness of breath at rest, Sputum production Gastrointestinal: Denies: Abdominal Pain, Nausea, Vomiting Genitourinary: Denies: Dysuria Musculoskeletal: Denies: Joint Pain, Joint Tenderness Skin: Denies: Rash, Wounds Neurological: Reports: Blurred vision. Denies: Double vision, Focal weakness, Numbness, Tingling Psychiatric: Denies: Anxiety, Depression Endocrine: Reports: Change in Body Habitus - Has lost 37 pounds in 4 months. This is unintentional. Hematologic/ Lymphatic: Reports: Easy Bleeding. Denies: Easy Bruising, Hx of blood clot Comment: A 10 point review of systems were negative except as mentioned in the history of present illness and the other review of systems. VTE Information - Inpt Only VTE Present on Admission: No VTE Mechan Device Prophylaxis: None VTE Pharm Prophylaxis ordered?: Yes Patient Problems: Active and Suspected Problems (Last Reviewed 04/06/18 @ 00:08 by Jourdan Alicia DO) NSTEMI (non-ST elevated myocardial infarction) (Acute) - Physical Exam General: Alert, Cooperative, No apparent distress HEENT: Atraumatic, Normocephalic Oral: Moist Mucosa, No Gingival or Mucosal Lesions/ Ulcerations Neck: No Nodes, Thyroid Normal Size and Texture Lungs: Clear to auscultation, Normal air movement, No rhonchi, No wheeze Cardiovascular: Regular rate, Regular Rhythm, Normal S1, Normal S2, No murmurs Abdomen: Bowel Sounds Present, Soft, Non Tender, Non-Distended, No Hepato-splenomegaly Extremities: No edema, No Calf Tenderness Skin: No rashes, No breakdown Neurological: Muscle tone normal, Coordination normal Psych/Mental Status: Normal Affect, Appropriate Vital Signs Temp Pulse Resp BP Pulse Ox 36.8 C 82 15 94/79 97 04/05/18 21:51 04/05/18 23:20 04/05/18 23:20 04/05/18 23:20 04/05/18 23:20 Oxygen Flow Rate (L/min) 2 Oxygen Delivery Method Nasal Cannula Weight: 82 kg Body Mass Index (BMI) 22.6 Laboratory Tests Past 24 Hrs 04/05/18 04/05/18 04/05/18 22:08 22:08 22:08 WBC 9.2 RBC 4.21 L Hgb 13.7 Hct 40.7 MCV 96.7 H MCH 32.5 H MCHC 33.7 RDW 16.8 H RDW Differential 59.7 H Plt Count 325 MPV 9.1 Immature Gran % (Auto) 0.100 Neut % (Auto) 64.2 Lymph % (Auto) 26.1 Burt % (Auto) 5.5 Eos % (Auto) 3.8 Baso % (Auto) 0.3 Absolute Neuts (auto) 5.9 Absolute Lymphs (auto) 2.41 Total Counted Not Reportable Sodium 137 Potassium 4.1 Chloride 101 Carbon Dioxide 22.0 Anion Gap 14 BUN 6 L Creatinine 0.99 Estim Creat Clear Calc 101.23 Est GFR (MDRD) Af Amer 102 Est GFR (MDRD) Non-Af 85 BUN/Creatinine Ratio 6.1 L Glucose 98 Calcium 8.3 L Troponin I 0.290 H Ethyl Alcohol 190.0 EKG reviewed and showed normal with no acute changes. LVH. Chest x-ray personally reviewed and shows no infiltrate, no edema no effusions. Assessment/Plan All Active Problems (Last Reviewed 04/06/18 @ 00:08 by Jourdan Alicia DO) Acute, mixed level of activity, alcohol withdrawal delirium (Acute) NSTEMI (non-ST elevated myocardial infarction) (Acute) Intermittent palpitations (Acute) Chest pain (Acute) STEMI (ST elevation myocardial infarction) (Resolved) 1. Non-ST elevation myocardial infarction: Patient is already on dual antiplatelet therapy with aspirin and Plavix plus high intensity statin. Patient did receive therapeutic weight-based dosing of Lovenox in the emergency room and will continue. Plan is to cycle his enzymes insult cardiology. Patient may require left heart catheterization but I think it is important to check the records from the [facility] and gastroenterology group in regards to the patient's most recent hematemesis episode. Does not sound like it was an ulcer but possibly may have been a Huma-Recio tear but would like to get results to further qualify that. 2. Recent GI bleed: As above may be Huma-Recio tear but will need to request records from [facility]. 3. Tobacco abuse: Advised cessation as this is most preventable risk factor that he has. Discussed about cessation efforts and changing his routine at home as the is a certain habitual component to his tobacco abuse. 4. Alcohol abuse: Patient states that he drinks 3-5 drinks almost daily but all have a day where he drinks. States that when he does not drink he does get some tremulousness. We will start the patient on thiamine and folate. I did advise the patient that his alcohol level was elevated when he came in here as he was under the impression that he would not be above the limit. 5. DVT prophylaxis with anticoagulation. Code Visit Inpatient E&M: 94722 Init Hosp L2 - Patient seen and examined on April 05. Billing is to reflect that date.
--- NOTE | 2018-04-06 00:10 | HP.PCM_ITS ---
Problem List (1) NSTEMI (non-ST elevated myocardial infarction) Status: Acute History of Present Illness Date of Admission: 04/05/18 Chief Complaint: palpitations The patient is a 52 year old M presents with palpitations. Patient was in his normal state of health, but today he had 3 beers between 4 and 6. Was eating [employer] and then experienced palpitations. He had some diaphoresis and treated with that but no chest pain. Patient presented to the emergency room for evaluation. In the emergency room, patient had a chest x-ray showed no acute process, however, his troponins were checked and was 0.29. Dr. Monte of cardiology was contacted and patient received aspirin as well as therapeutic dosing of Lovenox. Patient is currently symptom-free at this time. Patient does have a history of coronary artery disease and heart attacks but he had chest pain during those occurrences and he did not have a this time. Patient was seen here on the for GI bleed. Was transferred to [facility] and admitted there for 4 days. He had no further bleeding. He recently had an endoscopy outpatient with a physician whom he is not sure of the name and was told that there was no ulcers. He was told that biopsies were performed but does not know the results of the biopsies at this time. He was advised to hold off on his aspirin and Plavix which he has subsequently resumed. [] Past Medical History Past Medical History (Chronic Problems): Chronic Problems (Last Reviewed 04/06/18 @ 00:08 by Jourdan Alicia DO) CAD (coronary artery disease) (Chronic) HTN (hypertension) (Chronic) HLD (hyperlipidemia) (Chronic) Tobacco use (Chronic) Alcohol abuse (Chronic) Atherosclerosis of coronary artery of [place] with angina pectoris (Chronic) BMS-Prox and Distal RCA 12/23/16 History of coronary artery stent placement (Chronic 12/23/16) BMS-Prox and Distal RCA 12/23/16 Smoking addiction (Chronic) Anxiety (Chronic) Noncompliance (Chronic) Medical History: Medical History (Last Reviewed 04/06/18 @ 00:08 by Jourdan Alicia DO) Atherosclerosis of coronary artery of [place] with angina pectoris (Chronic) I25.119 BMS-Prox and Distal RCA 12/23/16 Smoking addiction (Chronic) F17.200 Anxiety (Chronic) F41.9 Noncompliance (Chronic) Z91.19 STEMI (ST elevation myocardial infarction) (Resolved) 12/23/16 STEMI (ST elevation myocardial infarction) I21.3 12/23/16 Allergies No Known Allergies Allergy (Verified 04/05/18 21:54) Home Medications: Ambulatory Orders Medication Instructions Recorded Fluoxetine [Prozac] 20 mg PO DAILY 05/27/17 Aspirin [Aspirin, Baby] 81 mg PO DAILY@0800 10/03/17 clopidogrel 75 mg tablet 75 mg PO DAILY #90 tab 01/04/18 metoprolol succinate ER 25 mg 25 mg PO DAILY #90 tab 01/04/18 tablet,extended release 24 hr Atorvastatin Calcium [Lipitor] 80 mg PO DAILY 03/24/18 Surgical History: Surgical History (Last Reviewed 04/06/18 @ 00:09 by Jourdan Alicia DO) History of coronary artery stent placement (Chronic) Onset Date: 12/23/16 Z95.5 BMS-Prox and Distal RCA 12/23/16 History of left heart catheterization Z98.890 12/23/16- PCI with BM stent to prox RCA & distal RCA; 01/12/17- patent BM stents; Surgical History: - - PCI x 2, T+A, L inguinal hernia repair. Psychiatric History: Anxiety, Depression Smoking Status: Current every day smoker - *Family History Sibling Family History: Family History (Last Reviewed 04/06/18 @ 00:09 by Jourdan Alicia DO) Father Myocardial infarction, Onset Age: 36 Mother Myocardial infarction Cancer History Items: - - Patient notes a history of a sister who underwent a CABG early in life. Maternal Family History: Family History (Last Reviewed 04/06/18 @ 00:09 by Jourdan Alicia DO) Father Myocardial infarction, Onset Age: 36 Mother Myocardial infarction Cancer History Items: - - Patient notes a maternal family history of coronary disease with at least 6 stents during her lifetime. Paternal Family History: Family History (Last Reviewed 04/06/18 @ 00:09 by Jourdan Alicia DO) Father Myocardial infarction, Onset Age: 36 Mother Myocardial infarction Cancer History Items: - - Patient notes a paternal family history of heart disease, passing secondary to fatal [place] at age 36. Review of Systems Constitutional: Reports: Anorexia. Denies: Chills, Fever Eyes: Reports: Blurred vision - Chronic as patient feels that he needs glasses.. Denies: Double vision HEENT: Denies: Head Aches, Sinus Congestion, Sinus Drainage Cardiovascular: Reports: Palpitations. Denies: Chest Pain, Edema Respiratory: Denies: Cough, Shortness of breath at rest, Sputum production Gastrointestinal: Denies: Abdominal Pain, Nausea, Vomiting Genitourinary: Denies: Dysuria Musculoskeletal: Denies: Joint Pain, Joint Tenderness Skin: Denies: Rash, Wounds Neurological: Reports: Blurred vision. Denies: Double vision, Focal weakness, Numbness, Tingling Psychiatric: Denies: Anxiety, Depression Endocrine: Reports: Change in Body Habitus - Has lost 37 pounds in 4 months. This is unintentional. Hematologic/ Lymphatic: Reports: Easy Bleeding. Denies: Easy Bruising, Hx of blood clot Comment: A 10 point review of systems were negative except as mentioned in the history of present illness and the other review of systems. VTE Information - Inpt Only VTE Present on Admission: No VTE Mechan Device Prophylaxis: None VTE Pharm Prophylaxis ordered?: Yes Patient Problems: Active and Suspected Problems (Last Reviewed 04/06/18 @ 00:08 by Jourdan Alicia DO) NSTEMI (non-ST elevated myocardial infarction) (Acute) - Physical Exam General: Alert, Cooperative, No apparent distress HEENT: Atraumatic, Normocephalic Oral: Moist Mucosa, No Gingival or Mucosal Lesions/ Ulcerations Neck: No Nodes, Thyroid Normal Size and Texture Lungs: Clear to auscultation, Normal air movement, No rhonchi, No wheeze Cardiovascular: Regular rate, Regular Rhythm, Normal S1, Normal S2, No murmurs Abdomen: Bowel Sounds Present, Soft, Non Tender, Non-Distended, No Hepato- splenomegaly Extremities: No edema, No Calf Tenderness Skin: No rashes, No breakdown Neurological: Muscle tone normal, Coordination normal Psych/Mental Status: Normal Affect, Appropriate Vital Signs Temp Pulse Resp BP Pulse Ox 36.8 C 82 15 94/79 97 04/05/18 21:51 04/05/18 23:20 04/05/18 23:20 04/05/18 23:20 04/05/18 23:20 Oxygen Flow Rate (L/min) 2 Oxygen Delivery Method Nasal Cannula Weight: 82 kg Body Mass Index (BMI) 22.6 Laboratory Tests Past 24 Hrs 04/05/18 04/05/18 04/05/18 22:08 22:08 22:08 WBC 9.2 RBC 4.21 L Hgb 13.7 Hct 40.7 MCV 96.7 H MCH 32.5 H MCHC 33.7 RDW 16.8 H RDW Differential 59.7 H Plt Count 325 MPV 9.1 Immature Gran % (Auto) 0.100 Neut % (Auto) 64.2 Lymph % (Auto) 26.1 [place] % (Auto) 5.5 Eos % (Auto) 3.8 Baso % (Auto) 0.3 Absolute Neuts (auto) 5.9 Absolute Lymphs (auto) 2.41 Total Counted Not Reportable Sodium 137 Potassium 4.1 Chloride 101 Carbon Dioxide 22.0 Anion Gap 14 BUN 6 L Creatinine 0.99 Estim Creat Clear Calc 101.23 Est GFR (MDRD) Af Amer 102 Est GFR (MDRD) Non-Af 85 BUN/Creatinine Ratio 6.1 L Glucose 98 Calcium 8.3 L Troponin I 0.290 H Ethyl Alcohol 190.0 EKG reviewed and showed normal with no acute changes. LVH. Chest x-ray personally reviewed and shows no infiltrate, no edema no effusions. Assessment/Plan All Active Problems (Last Reviewed 04/06/18 @ 00:08 by Jourdan Alicia DO) Acute, mixed level of activity, alcohol withdrawal delirium (Acute) NSTEMI (non-ST elevated myocardial infarction) (Acute) Intermittent palpitations (Acute) Chest pain (Acute) STEMI (ST elevation myocardial infarction) (Resolved) 1. Non-ST elevation myocardial infarction: Patient is already on dual antiplatelet therapy with aspirin and Plavix plus high intensity statin. Patien t did receive therapeutic weight-based dosing of Lovenox in the emergency room and will continue. Plan is to cycle his enzymes insult cardiology. Patient may require left heart catheterization but I think it is important to check the records from the [facility] and gastroenterology group in regards to the patient's most recent hematemesis episode. Does not sound like it was an ulcer but possibly may have been a Huma-Recio tear but would like to get results to further qualify that. 2. Recent GI bleed: As above may be Huma-Recio tear but will need to request records from [facility]. 3. Tobacco abuse: Advised cessation as this is most preventable risk factor that he has. Discussed about cessation efforts and changing his routine at home as the is a certain habitual component to his tobacco abuse. 4. Alcohol abuse: Patient states that he drinks 3-5 drinks almost daily but all have a day where he drinks. States that when he does not drink he does get some tremulousness. We will start the patient on thiamine and folate. I did advise the patient that his alcohol level was elevated when he came in here as he was under the impression that he would not be above the limit. 5. DVT prophylaxis with anticoagulation. Code Visit Inpatient E&M: 52645 Init Hosp L2 - Patient seen and examined on April 05. Billing is to reflect that date.
[2018-04-06] MEDS: oxyCODONE 5 MG Tablet PO ×5 (00:41→21:20)
[2018-04-06] MEDS: LORazepam 2 MG/ML Syringe IV ×6 (00:48→12:15)
[2018-04-06] MEDS: 0.9% NaCl Peripheral Flush Adult/Peds IV ×6 (02:11→12:15)
[2018-04-06 04:29] LABS: AST(SGOT) 34 U/L (15-37); Alanine Aminotransfer ALT/SGPT 30 U/L (16-61); Albumin, Serum 3.1 g/dL (3.2-5.0); Alkaline Phosphatase 86 U/L (45-117); Anion Gap 12 (5-15); BUN 7 mg/dL (7-18); BUN/Creat Ratio 8.9 RATIO (10-20); Calcium,Total 7.9 mg/dL (8.5-10.1); Chloride 106 mmol/L (98-107); Cholesterol 131 mg/dL (200); Creatinine, Serum 0.79 mg/dL (0.70-1.30); EST Glomerular Filtration Rate 110 mL/min (>60); Est Glom Filt Rate - Afr Amer 133 mL/min (>60); Estimated Creatinine Clearance 123.15 ml/min; Globulin 3.1 g/dL (2.2-4.2); Glucose 82 mg/dL (74-106); High Density Lipoprotein 74 mg/dL; Potassium 4.4 mmol/L (3.5-5.1); Protein, Total 6.2 g/dL (6.4-8.2); Sodium Level 143 mmol/L (136-145); Thyroid Stim Hormone (TSH) 1.91 uIU/mL (0.358-3.74); Triglycerides 131 mg/dL; Very Low Density Lipoprotein 26 mg/dL (5-40)
[2018-04-06] MEDS: Folic Acid 1 MG Tablet PO (08:41)
[2018-04-06] MEDS: Metoprolol(XL)Succ 25 MG Tablet PO (08:41)
[2018-04-06] MEDS: Clopidogrel Bisulfate 75 MG Tablet PO (08:41)
[2018-04-06] MEDS: FLUoxetine 20 MG Capsule PO (08:41)
[2018-04-06] MEDS: Thiamine Hydrochloride 100 MG Tablet PO (08:41)
[2018-04-06] MEDS: Morphine 2 MG/ML Syringe IV (08:42)
--- NOTE | 2018-04-06 11:51 | PCM.PROGNOTE ---
Patient Problems: Active and Suspected Problems (Last Reviewed 04/06/18 @ 00:08 by Jourdan Alicia DO) NSTEMI (non-ST elevated myocardial infarction) (Acute) Subjective: Patient seen and examined. Reports continued left-sided chest pain. He reports his chest pain is been ongoing prior to admission secondary to recent fall with left rib fracture. He denies shortness of breath, dizziness, palpitations. He reports mild tremors from alcohol withdrawal. He expresses desire for outpatient help with alcohol tobacco cessation. - Physical Exam General: Alert, Oriented x3, Cooperative HEENT: Atraumatic, PERRLA, EOMI, Normocephalic Neck: Supple, No JVD, Negative Carotid Bruits Lungs: Clear to auscultation, Normal air movement Cardiovascular: Regular rate, Regular Rhythm, Normal S1, Normal S2, No murmurs Abdomen: Bowel Sounds Present, Soft, Non Tender, Non-Distended Extremities: No clubbing, No cyanosis, No edema, Capillary Refill Less than 3 Seconds Skin: No rashes, No breakdown Musculoskeletal: No Tenderness to Palpation of Joints or Extremities Neurological: Cranial nerves II-XII grossly intact, Neuro grossly intact Psych/Mental Status: Normal Affect, Appropriate Vital Signs Temp Pulse Resp BP Pulse Ox 98.6 F 83 16 115/73 93 04/06/18 09:52 04/06/18 09:52 04/06/18 09:52 04/06/18 09:52 04/06/18 09:52 Oxygen Flow Rate (L/min) 2 Oxygen Delivery Method Room Air Weight: 175 lb 7.807 oz Body Mass Index (BMI) 21.9 Intake and Output for Last 24 Hours 04/04/18 04/05/18 04/06/18 23:59 23:59 23:59 Intake Total 480 / 480 Balance 480 / 480 Laboratory Tests Past 24 Hrs 04/05/18 04/05/18 04/05/18 22:08 22:08 22:08 WBC 9.2 RBC 4.21 L Hgb 13.7 Hct 40.7 MCV 96.7 H MCH 32.5 H MCHC 33.7 RDW 16.8 H RDW Differential 59.7 H Plt Count 325 MPV 9.1 Immature Gran % (Auto) 0.100 Neut % (Auto) 64.2 Lymph % (Auto) 26.1 [place] % (Auto) 5.5 Eos % (Auto) 3.8 Baso % (Auto) 0.3 Absolute Neuts (auto) 5.9 Absolute Lymphs (auto) 2.41 Total Counted Not Reportable Sodium 137 Potassium 4.1 Chloride 101 Carbon Dioxide 22.0 Anion Gap 14 BUN 6 L Creatinine 0.99 Estim Creat Clear Calc 101.23 Est GFR (MDRD) Af Amer 102 Est GFR (MDRD) Non-Af 85 BUN/Creatinine Ratio 6.1 L Glucose 98 Calcium 8.3 L Total Bilirubin AST ALT Alkaline Phosphatase Troponin I 0.290 H Total Protein Albumin Globulin Albumin/Globulin Ratio Triglycerides Cholesterol LDL Cholesterol VLDL Cholesterol HDL Cholesterol TSH Ethyl Alcohol 190.0 04/06/18 04/06/18 04/06/18 01:03 03:56 03:56 WBC RBC Hgb Hct MCV MCH MCHC RDW RDW Differential Plt Count MPV Immature Gran % (Auto) Neut % (Auto) Lymph % (Auto) [place] % (Auto) Eos % (Auto) Baso % (Auto) Absolute Neuts (auto) Absolute Lymphs (auto) Total Counted Sodium 143 Potassium 4.4 Chloride 106 Carbon Dioxide 25.0 Anion Gap 12 BUN 7 Creatinine 0.79 Estim Creat Clear Calc 123.15 Est GFR (MDRD) Af Amer 133 Est GFR (MDRD) Non-Af 110 BUN/Creatinine Ratio 8.9 L Glucose 82 Calcium 7.9 L Total Bilirubin 0.40 AST 34 ALT 30 Alkaline Phosphatase 86 Troponin I 0.266 H 0.234 H Total Protein 6.2 L Albumin 3.1 L Globulin 3.1 Albumin/Globulin Ratio 1.0 Triglycerides 131 Cholesterol 131 LDL Cholesterol 31 VLDL Cholesterol 26 HDL Cholesterol 74 TSH 1.91 Ethyl Alcohol Medical Necessity - Tobacco Use Smoking Status: Current every day smoker Assessment/Plan All Active Problems (Last Reviewed 04/06/18 @ 00:08 by Jourdan Alicia DO) Acute, mixed level of activity, alcohol withdrawal delirium (Acute) NSTEMI (non-ST elevated myocardial infarction) (Acute) Intermittent palpitations (Acute) Chest pain (Acute) STEMI (ST elevation myocardial infarction) (Resolved) 1. NSTEMI-continue aspirin, Plavix, statin, beta-luis. Cardiology consulted. Patient follows with Dr. Monte. Weight-based Lovenox. 2. CAD status post PCI x2-follows with Dr. Monte. Continue aspirin, Plavix, statin, beta-luis. 3. Recent left-sided rib fracture secondary to fall (approximately 1 month ago) CT of chest 03/23/2018 showed subacute posterior left-sided eighth rib fracture. PRN pain regimen. 4. Hypertension-continue home metoprolol regimen. 5. Hyperlipidemia-continue statin regimen. 6. Recent GI bleed with hematemesis-[facility] gastroenterology consultation note in chart noted GI bleed suspected secondary to heavy NSAID use. Resolved with PPI and patient was scheduled for outpatient EGD. EGD report not yet available although patient states it was normal and he has not received biopsy results yet. 7. Alcohol abuse- CIWA/ativan protocol. [facility] consult. Continue thiamine, folic acid supplementation. Alcohol level on admission 190. Patient was recently admitted in February 2018 for acute alcohol withdrawal and seen by a [facility] service at that time. 8. Tobacco abuse-encourage smoking cessation. Inpatient smoking cessation consult. 9. Depression/Anxiety-continue home fluoxetine regimen. DVT prophylaxis- Lovenox co This patient was seen by BETH Vogel under the supervision of Dr. Griggs.
--- NOTE | 2018-04-06 12:05 | CASEMGMT ---
Patient has a Healthcare POA and Healthcare LW on file at [facility]. Margarita SALVADOR ANALYTICAL DATA MINER
--- NOTE | 2018-04-06 12:06 | CASEMGMT ---
Patient asked Nurse Practitioner for alcohol treatment resources. SERAFIN spoke with Rosemarie from [employer] and she will see patient tomorrow am and give him resources. Margarita POOLE
--- NOTE | 2018-04-06 15:45 | CASEMGMT ---
DILIP FOWLER RE-ADMISSION NOTE: Admitted 03/10-03/13 w/CP w/CAD and Acute ETOH W/D. Pt reported he had participated in [facility] [employer] [facility] approx 1 year prior in [place]. Initial plan was for pt to participate in [facility] program. [facility] was consulted was provided information. Pt was also informed of [facility] as an out-pt. Re-admitted 04/06 with CP/NSTEMI. Declined [facility]. Cardiology has been consulted. DILIP FOWLER in to talk with pt. Intro self and role to DILIP FOWLER. Pt confirms that he is not interested in the [facility] program at this time, stating, I want to try to do it on my own. I don't want to be forced to go to AA meetings and other things. Pt stated he still has some of the information provided to him from [employer] and states, I'll read over that and I have some other things I know I can do. Pt states he wishes to return home on discharge. He states he still works and drives. Denies needs on discharge. Elisabeth DAVIDSON RN, CM
--- NOTE | 2018-04-06 16:59 | CASEMGMT ---
Tertiary review for In-network facilities for [place] insurance if transfer is recommended[facility], [facility], [facility], [facility], [facility], [facility], [facility], and [facility]. Elisabeth ARMSTRONGN RN CM
--- NOTE | 2018-04-06 18:43 | PCM.CONS.C ---
Reason for Consult Date of Consultation: 04/06/18 Reason for Consultation: Chest discomfort History of Present Illness: ORQUIDEA JUÁREZ, is a 52 M who presents to the office today for a follow-up visit. He is a gentleman with a history of coronary artery disease status post drug-eluting stent to the proximal and distal right coronary artery December 2016. He also has a history of tobacco abuse. He presented to the emergency room last night with chest discomfort he was noted to have mildly abnormal cardiac enzymes. He also did have an elevated alcohol level. Unfortunately he has discontinued all his medications. He has had no neck arm or jaw discomfort suggest angina no dizziness or diaphoresis no near syncope or syncope. He has reduce the amount of tobacco he uses but still continues with a fair amount. He was in the emergency room in December 2017 with a chest discomfort. His symptoms were thought to be atypical for acute coronary syndrome and he was evaluated and discharged. His physical exam today demonstrated clear lung landa regular rate and rhythm and no pedal edema. EKG was unremarkable Past Medical History Allergies/Adverse Reactions: Allergies No Known Allergies Allergy (Verified 04/05/18 21:54) Home Medications: Ambulatory Orders Medication Instructions Recorded Fluoxetine [Prozac] 20 mg PO DAILY 05/27/17 Aspirin [Aspirin, Baby] 81 mg PO DAILY@0800 10/03/17 clopidogrel 75 mg tablet 75 mg PO DAILY #90 tab 01/04/18 metoprolol succinate ER 25 mg 25 mg PO DAILY #90 tab 01/04/18 tablet,extended release 24 hr Atorvastatin Calcium [Lipitor] 80 mg PO DAILY 03/24/18 Past Medical History (Chronic Problems): Chronic Problems (Last Reviewed 04/06/18 @ 00:08 by Jourdan Alicia DO) CAD (coronary artery disease) (Chronic) HTN (hypertension) (Chronic) HLD (hyperlipidemia) (Chronic) Tobacco use (Chronic) Alcohol abuse (Chronic) Atherosclerosis of coronary artery of [place] heart with angina pectoris (Chronic) BMS-Prox and Distal RCA 12/23/16 History of coronary artery stent placement (Chronic 12/23/16) BMS-Prox and Distal RCA 12/23/16 Smoking addiction (Chronic) Anxiety (Chronic) Noncompliance (Chronic) Surgical History: - - PCI x 2, T+A, L inguinal hernia repair. Psychiatric History: Anxiety, Depression - *Family History Sibling Family History: Family History (Last Reviewed 04/06/18 @ 00:09 by Jourdan Alicia DO) Father Myocardial infarction, Onset Age: 36 Mother Myocardial infarction Cancer History Items: - - Patient notes a history of a sister who underwent a CABG early in life. Maternal Family History: Family History (Last Reviewed 04/06/18 @ 00:09 by Jourdan Alicia DO) Father Myocardial infarction, Onset Age: 36 Mother Myocardial infarction Cancer History Items: - - Patient notes a maternal family history of coronary disease with at least 6 stents during her lifetime. Paternal Family History: Family History (Last Reviewed 04/06/18 @ 00:09 by Jourdan Alicia DO) Father Myocardial infarction, Onset Age: 36 Mother Myocardial infarction Cancer History Items: - - Patient notes a paternal family history of heart disease, passing secondary to fatal [place] at age 36. Smoking Status: Current every day smoker Alcohol: None Drugs: None Review of Systems - Review of Systems General: Denies: Fever, Night Sweats, Fatigue HEENT: Denies: Vision Change Cardiovascular: Reports: Chest Discomfort. Denies: Shortness of Breath, Orthopnea, PND, Peripheral Edema, Palpitations, Lightheadedness, Dizziness, Near Syncope, Syncope Respiratory: Denies: Cough, Sputum Production, Hemoptysis Gastrointestinal: Denies: Hematemesis, Hematochezia, Melena Genitourinary: Denies: Dysuria, Hematuria Muscoloskeletal: Denies: Myalgias Skin: Denies: Rash Neurological: Denies: Dizziness Psychiatric: Denies: Anxiety Endocrine: Denies: Unexplained Weight Loss Hematologic/ Lymphatic: Denies: Anemia Subjectve: Pleasant gentleman in no distress Objective: Vital Signs Temp Pulse Resp BP Pulse Ox 98.9 F 70 16 132/84 H 97 04/06/18 16:16 04/06/18 16:16 04/06/18 16:16 04/06/18 16:16 04/06/18 16:16 Oxygen Flow Rate (L/min) 2 Oxygen Delivery Method Room Air Weight: 175 lb 7.807 oz Body Mass Index (BMI) 21.9 Intake and Output for Last 24 Hours 04/04/18 04/05/18 04/06/18 23:59 23:59 23:59 Intake Total 1380 / 1380 Balance 1380 / 1380 General: Awake, Alert, Oriented x 3 HEENT: PERRL, EOMI, Sclera Non Icteric Neck: Supple, Good ROM, No Lymph Node Enlargement Lungs: Clear to auscultation Cardiovascular: Regular Rhythm, Normal S1, Normal S2, No Murmurs, No Rubs, No Gallops Vascular: No Carotid Bruits, Normal Femoral Pulses, Normal Radial Pulses, Normal Dorsalis Pedal Pulse, Normal Posterior Tibial Pulses Abdomen: Bowel Sounds Present, Soft, Non Tender, No HSM, No Organomegaly Extremities: No Cyanosis, No Clubbing, No edema Musculoskeletal: No Erythema Skin: No Rashes Lymphatic: No Lymph Node Enlargement Neurological: No Focal Motor or Sensory Deficit Psych/Mental Status: Appropriate 04/05/18 22:08: WBC 9.2, RBC 4.21 L, Hgb 13.7, Hct 40.7, MCV 96.7 H, MCH 32.5 H, MCHC 33.7, RDW 16.8 H, RDW Differential 59.7 H, Plt Count 325, MPV 9.1, Immature Gran % (Auto) 0.100, Neut % (Auto) 64.2, Lymph % (Auto) 26.1, [place] % (Auto) 5.5, Eos % (Auto) 3.8, Baso % (Auto) 0.3, Absolute Neuts (auto) 5.9, Total Counted Not Reportable 04/05/18 22:08: Sodium 137, Potassium 4.1, Chloride 101, Carbon Dioxide 22.0, Anion Gap 14, BUN 6 L, Creatinine 0.99, Est GFR (MDRD) Af Amer 102, Est GFR (MDRD) Non-Af 85, BUN/Creatinine Ratio 6.1 L, Glucose 98, Calcium 8.3 L, Troponin I 0.290 H 04/06/18 01:03: Troponin I 0.266 H 04/06/18 03:56: Sodium 143, Potassium 4.4, Chloride 106, Carbon Dioxide 25.0, Anion Gap 12, BUN 7, Creatinine 0.79, Est GFR (MDRD) Af Amer 133, Est GFR (MDRD) Non-Af 110, BUN/Creatinine Ratio 8.9 L, Glucose 82, Calcium 7.9 L, Total Bilirubin 0.40, Triglycerides 131, Cholesterol 131, LDL Cholesterol 31, VLDL Cholesterol 26, HDL Cholesterol 74 02/28/19 03:56: Troponin I 0.234 H Rhythm: EKG:Normal sinus rhythm Assessment/Plan 1. Chest pain- with abnormal cardiac enzymes The patient presented with somewhat atypical chest pain and minimal cardiac enzyme abnormality. Due to his previous history with coronary artery disease and previous stenting it was felt that he should undergo a cardiac catheterization. In addition he is markedly anxious. I did discuss this with him and he would prefer to have it via the radial approach. I did explain to him that should he need an intervention we probably would pursue his through the femoral approach. He is completely agreeable with this. 2. Coronary artery disease Patient has known coronary artery disease status post previous Kirstie plasty and stenting of the right coronary artery. This will be reevaluated in a.m. Thank you for allowing me to participate in the care of your patient. Please don't hesitate to call if any issues arise
--- NOTE | 2018-04-06 18:48 | CON.PCM_ITS ---
Reason for Consult Date of Consultation: 04/06/18 Reason for Consultation: Chest discomfort History of Present Illness: ORQUIDEA JUÁREZ, is a 52 M who presents to the office today for a follow-up visit. He is a gentleman with a history of coronary artery disease status post drug- eluting stent to the proximal and distal right coronary artery December 2016. He also has a history of tobacco abuse. He presented to the emergency room last night with chest discomfort he was noted to have mildly abnormal cardiac enzymes. He also did have an elevated alcohol level. Unfortunately he has discontinued all his medications. He has had no neck arm or jaw discomfort suggest angina no dizziness or diaphoresis no near syncope or syncope. He has reduce the amount of tobacco he uses but still continues with a fair amount. He was in the emergency room in December 2017 with a chest discomfort. His symptoms were thought to be atypical for acute coronary syndrome and he was evaluated and discharged. His physical exam today demonstrated clear lung landa regular rate and rhythm and no pedal edema. EKG was unremarkable Past Medical History Allergies/Adverse Reactions: Allergies No Known Allergies Allergy (Verified 04/05/18 21:54) Home Medications: Ambulatory Orders Medication Instructions Recorded Fluoxetine [Prozac] 20 mg PO DAILY 05/27/17 Aspirin [Aspirin, Baby] 81 mg PO DAILY@0800 10/03/17 clopidogrel 75 mg tablet 75 mg PO DAILY #90 tab 01/04/18 metoprolol succinate ER 25 mg 25 mg PO DAILY #90 tab 01/04/18 tablet,extended release 24 hr Atorvastatin Calcium [Lipitor] 80 mg PO DAILY 03/24/18 Past Medical History (Chronic Problems): Chronic Problems (Last Reviewed 04/06/18 @ 00:08 by Jourdan Alicia DO) CAD (coronary artery disease) (Chronic) HTN (hypertension) (Chronic) HLD (hyperlipidemia) (Chronic) Tobacco use (Chronic) Alcohol abuse (Chronic) Atherosclerosis of coronary artery of [place] heart with angina pectoris (Chronic) BMS-Prox and Distal RCA 12/23/16 History of coronary artery stent placement (Chronic 12/23/16) BMS-Prox and Distal RCA 12/23/16 Smoking addiction (Chronic) Anxiety (Chronic) Noncompliance (Chronic) Surgical History: - - PCI x 2, T+A, L inguinal hernia repair. Psychiatric History: Anxiety, Depression - *Family History Sibling Family History: Family History (Last Reviewed 04/06/18 @ 00:09 by Jourdan Alicia DO) Father Myocardial infarction, Onset Age: 36 Mother Myocardial infarction Cancer History Items: - - Patient notes a history of a sister who underwent a CABG early in life. Maternal Family History: Family History (Last Reviewed 04/06/18 @ 00:09 by Jourdan Alicia DO) Father Myocardial infarction, Onset Age: 36 Mother Myocardial infarction Cancer History Items: - - Patient notes a maternal family history of coronary disease with at least 6 stents during her lifetime. Paternal Family History: Family History (Last Reviewed 04/06/18 @ 00:09 by Jourdan Alicia DO) Father Myocardial infarction, Onset Age: 36 Mother Myocardial infarction Cancer History Items: - - Patient notes a paternal family history of heart disease, passing secondary to fatal [place] at age 36. Smoking Status: Current every day smoker Alcohol: None Drugs: None Review of Systems - Review of Systems General: Denies: Fever, Night Sweats, Fatigue HEENT: Denies: Vision Change Cardiovascular: Reports: Chest Discomfort. Denies: Shortness of Breath, Orthopnea, PND, Peripheral Edema, Palpitations, Lightheadedness, Dizziness, Near Syncope, Syncope Respiratory: Denies: Cough, Sputum Production, Hemoptysis Gastrointestinal: Denies: Hematemesis, Hematochezia, Melena Genitourinary: Denies: Dysuria, Hematuria Muscoloskeletal: Denies: Myalgias Skin: Denies: Rash Neurological: Denies: Dizziness Psychiatric: Denies: Anxiety Endocrine: Denies: Unexplained Weight Loss Hematologic/ Lymphatic: Denies: Anemia Subjectve: Pleasant gentleman in no distress Objective: Vital Signs Temp Pulse Resp BP Pulse Ox 98.9 F 70 16 132/84 H 97 04/06/18 16:16 04/06/18 16:16 04/06/18 16:16 04/06/18 16:16 04/06/18 16:16 Oxygen Flow Rate (L/min) 2 Oxygen Delivery Method Room Air Weight: 175 lb 7.807 oz Body Mass Index (BMI) 21.9 Intake and Output for Last 24 Hours 04/04/18 04/05/18 04/06/18 23:59 23:59 23:59 Intake Total 1380 / 1380 Balance 1380 / 1380 General: Awake, Alert, Oriented x 3 HEENT: PERRL, EOMI, Sclera Non Icteric Neck: Supple, Good ROM, No Lymph Node Enlargement Lungs: Clear to auscultation Cardiovascular: Regular Rhythm, Normal S1, Normal S2, No Murmurs, No Rubs, No Gallops Vascular: No Carotid Bruits, Normal Femoral Pulses, Normal Radial Pulses, Normal Dorsalis Pedal Pulse, Normal Posterior Tibial Pulses Abdomen: Bowel Sounds Present, Soft, Non Tender, No HSM, No Organomegaly Extremities: No Cyanosis, No Clubbing, No edema Musculoskeletal: No Erythema Skin: No Rashes Lymphatic: No Lymph Node Enlargement Neurological: No Focal Motor or Sensory Deficit Psych/Mental Status: Appropriate 04/05/18 22:08: WBC 9.2, RBC 4.21 L, Hgb 13.7, Hct 40.7, MCV 96.7 H, MCH 32.5 H, MCHC 33.7, RDW 16.8 H, RDW Differential 59.7 H, Plt Count 325, MPV 9.1, Immature Gran % (Auto) 0.100, Neut % (Auto) 64.2, Lymph % (Auto) 26.1, [place] % (Auto) 5.5, Eos % (Auto) 3.8, Baso % (Auto) 0.3, Absolute Neuts (auto) 5.9, T otal Counted Not Reportable 04/05/18 22:08: Sodium 137, Potassium 4.1, Chloride 101, Carbon Dioxide 22.0, Anion Gap 14, BUN 6 L, Creatinine 0.99, Est GFR (MDRD) Af Amer 102, Est GFR (MDRD) Non-Af 85, BUN/Creatinine Ratio 6.1 L, Glucose 98, Calcium 8.3 L, Troponin I 0.290 H 04/06/18 01:03: Troponin I 0.266 H 04/06/18 03:56: Sodium 143, Potassium 4.4, Chloride 106, Carbon Dioxide 25.0, Anion Gap 12, BUN 7, Creatinine 0.79, Est GFR (MDRD) Af Amer 133, Est GFR (MDRD) Non-Af 110, BUN/Creatinine Ratio 8.9 L, Glucose 82, Calcium 7.9 L, Total Bilirubin 0.40, Triglycerides 131, Cholesterol 131, LDL Cholesterol 31, VLDL Cholesterol 26, HDL Cholesterol 74 04/06/18 03:56: Troponin I 0.234 H Rhythm: EKG:Normal sinus rhythm Assessment/Plan 1. Chest pain- with abnormal cardiac enzymes * The patient presented with somewhat atypical chest pain and minimal cardiac enzyme abnormality. Due to his previous history with coronary artery disease and previous stenting it was felt that he should undergo a cardiac catheterization. In addition he is markedly anxious. I did discuss this with him and he would prefer to have it via the radial approach. I did explain to him that should he need an intervention we probably would pursue his through the femoral approach. He is completely agreeable with this. * 2. Coronary artery disease * Patient has known coronary artery disease status post previous Kristie plasty and stenting of the right coronary artery. This will be reevaluated in a.m. * * Thank you for allowing me to participate in the care of your patient. Please don't hesitate to call if any issues arise
[2018-04-06] MEDS: hydrOXYzine PAM 25 MG Capsule 50 MG PO (21:21)
[2018-04-06] MEDS: Zolpidem Tartrate 5 MG Tablet PO (21:21)
[2018-04-06] MEDS: Atorvastatin Calcium 80 MG Tablet PO (21:22)
[2018-04-06 22:05] LABS: Bacteria 0 SEEN /hpf (None Seen); Mucous, Urine 0 SEEN /hpf (<or=2+); White Blood Cells 0 SEEN /hpf (0-5)
[2018-04-06 22:10] LABS: Color, Urine Yellow (Yellow); Glucose, Dipstick Normal (Normal); Ketone-Dipstick Negative (Negative); Leukocyte Esterase-Dipstick Negative /ul (Negative); Nitrite-Dipstick Negative (Negative); Occult Blood-Urine 10 /ul (Negative); Protein-Dipstick Negative (Negative); Urine Bilirubin Dipstick Negative (Negative); Urine Clarity Sl. Cloudy (Clear); Urine Urobilinogen Normal (Normal)
[2018-04-06 22:18] LABS: Red Blood Cells-Urine 0-5 SEEN /hpf (0-5); Squamous Epithelial Cells - UA 0-5 SEEN /hpf (0-5)
[2018-04-07] VITALS (13 sets, daily range): BP systolic 92–147; BP diastolic 43–92; PULSE 60–72; RESP 14–18; TEMP 36.6–37.1; O2SAT 93–97
[2018-04-07] MEDS: HYDROcodone Bitartrate/Apap 5/325 Tablet PO ×3 (00:58→09:21)
[2018-04-07] MEDS: LORazepam 1 MG Tablet 2 MG PO (04:10)
--- NOTE | 2018-04-07 05:55 | EKG12_ITS ---
Test Reason : AM EKG Blood Pressure : / mmHG Vent. Rate : 072 BPM Atrial Rate : 072 BPM P-R Int : 140 ms QRS Dur : 082 ms QT Int : 394 ms P-R-T Axes : 049 -06 031 degrees QTc Int : 431 ms Normal sinus rhythm Normal ECG When compared with ECG of 05-APR-2018 22:11, No significant change was found Confirmed by ED VENTURA, GURPREET ([id number]), editor in chief ASHLEY SHIELDS ([id number]) on 04/10/2018 2:43:32 PM Referred By: Jourdan Alicia Confirmed By:GURPREET WARD MD
[2018-04-07 06:09] LABS: Absolute Lymphocyte Count 1.55 X10^3/ul (0.83-4.51); Absolute Neutrophil Count 3.5 X10^3/uL (2.0-7.7); Basophil# 0.04 X10^3/uL; Basophil% 0.7 % (0-1); Eosinophil# 0.33 X10^3/uL; Eosinophils% 5.5 % (0-5); Hematocrit 37.9 % (40-54); Hemoglobin 12.7 g/dl (13.0-16.5); Lymphocyte # 1.55 X10^3/ul (4.0); Lymphocyte % 25.6 % (19-41); Mean Corp Hgb Conc 33.5 g/gl (32-36); Mean Corpuscular Hgb 33.2 pg (27.0-32.0); Mean Corpuscular Volume 99.2 fL (80-94); Mean Platelet Vol. 9.7 fl (6.2-12.0); Monocyte# 0.61 X10^3/uL; Monocyte% 10.1 % (0-10); Neutrophil % 57.8 % (47-70); POSITIVE COUNT NO; POSITIVE DIFFERENTIAL NO; POSITIVE MORPHOLOGY NO; Platelet Count 238 K/mm3 (150-450); RBC Distribution Width CV 16.8 % (11.6-14.6); RBC Distribution Width SD 59.7 fl (35.1-43.9); Red Blood Count 3.82 M/mm3 (4.6-6.2); White Blood Count 6.1 K/mm3 (4.4-11.0)
[2018-04-07] MEDS: Morphine 2 MG/ML Syringe IV (06:12)
[2018-04-07] MEDS: 0.9% NaCl Peripheral Flush Adult/Peds IV ×2 (06:13→06:16)
[2018-04-07] MEDS: 0.9% Normal Saline 1,000 ML 15 ML IV (06:13)
[2018-04-07 06:14] LABS: Prothrombin Time (Protime)PT. 12.9 SECONDS (11.7-14.9)
[2018-04-07 06:15] LABS: Partial Thromboplast Time 30.4 Seconds (24.1-36.2)
[2018-04-07 06:16] LABS: Anion Gap 9 (5-15); BUN 11 mg/dL (7-18); BUN/Creat Ratio 14.3 RATIO (10-20); Calcium,Total 8.6 mg/dL (8.5-10.1); Chloride 107 mmol/L (98-107); Creatinine, Serum 0.77 mg/dL (0.70-1.30); EST Glomerular Filtration Rate 113 mL/min (>60); Est Glom Filt Rate - Afr Amer 136 mL/min (>60); Estimated Creatinine Clearance 126.35 ml/min; Glucose 77 mg/dL (74-106); Potassium 4.1 mmol/L (3.5-5.1); Sodium Level 144 mmol/L (136-145)
[2018-04-07] MEDS: Aspirin 81 MG TAB.CHEW PO (06:21)
[2018-04-07] MEDS: Clopidogrel Bisulfate 75 MG Tablet PO (06:21)
[2018-04-07] MEDS: Metoprolol(XL)Succ 25 MG Tablet PO (06:22)
--- NOTE | 2018-04-07 08:37 | PCM.PN.CARD ---
Subjectve: Patient seen and evaluated. Objective: Vital Signs Temp Pulse Resp BP Pulse Ox 98.7 F 68 18 113/85 H 97 04/07/18 06:18 04/07/18 06:47 04/07/18 06:18 04/07/18 06:18 04/07/18 06:18 Oxygen Flow Rate (L/min) 2 Oxygen Delivery Method Room Air Weight: 175 lb 7.807 oz Body Mass Index (BMI) 21.9 Intake and Output for Last 24 Hours 04/05/18 04/06/18 04/07/18 23:59 23:59 23:59 Intake Total 1380 / 1380 Balance 1380 / 1380 General: Awake, Alert, Oriented x 3 HEENT: PERRL, EOMI, Sclera Non Icteric Neck: Supple, Good ROM, No Lymph Node Enlargement Lungs: Clear to auscultation Cardiovascular: Regular Rhythm, Normal S1, Normal S2, No Murmurs, No Rubs, No Gallops Vascular: No Carotid Bruits, Normal Femoral Pulses, Normal Radial Pulses, Normal Dorsalis Pedal Pulse, Normal Posterior Tibial Pulses Abdomen: Bowel Sounds Present, Soft, Non Tender, No HSM, No Organomegaly Extremities: No Cyanosis, No Clubbing, No edema Neurological: No Focal Motor or Sensory Deficit Psych/Mental Status: Appropriate 04/06/18 21:56: Urine Color Yellow, Urine Clarity Sl. Cloudy, Urine pH 8.0, Ur Specific [place] 1.010, Urine Protein Negative, Urine Glucose (UA) Normal, Urine Ketones Negative, Urine Occult Blood 10 H, Urine Nitrite Negative, Urine Bilirubin Negative, Urine Urobilinogen Normal, Ur Leukocyte Esterase Negative, Urine RBC 0-5 SEEN, Urine WBC 0 SEEN 04/07/18 05:20: WBC 6.1, RBC 3.82 L, Hgb 12.7 L, Hct 37.9 L, MCV 99.2 H, MCH 33.2 H, MCHC 33.5, RDW 16.8 H, RDW Differential 59.7 H, Plt Count 238, MPV 9.7, Immature Gran % (Auto) 0.300, Neut % (Auto) 57.8, Lymph % (Auto) 25.6, [place] % (Auto) 10.1 H, Eos % (Auto) 5.5 H, Baso % (Auto) 0.7, Absolute Neuts (auto) 3.5, Total Counted Not Reportable 04/07/18 05:20: PT 12.9, INR 1.0, APTT 30.4 04/07/18 05:20: Sodium 144, Potassium 4.1, Chloride 107, Carbon Dioxide 28.0, Anion Gap 9, BUN 11, Creatinine 0.77, Est GFR (MDRD) Af Amer 136, Est GFR (MDRD) Non-Af 113, BUN/Creatinine Ratio 14.3, Glucose 77, Calcium 8.6 Rhythm: EKG: ECHO: Stress Test: Cardiac Cath: PCI: CT Surgery: Holter monitor: EPS: PPM: CXR: Chest CT Scan: Medical Necessity - Tobacco Use Smoking Status: Current every day smoker Assessment/Plan 1. Chest pain- with abnormal cardiac enzymes The patient presented with somewhat atypical chest pain and minimal cardiac enzyme abnormality. Cardiac catheterization demonstrated the following: Normal left main coronary artery Left anterior descending artery with mild to moderate proximal disease and mild diffuse mid and distal disease Left circumflex artery with mild disease Previously stented right coronary artery with mild in-stent stenosis. Mild diffuse distal disease noted Preserved ejection fraction Based on the above angiographic findings would continue aggressive medical therapy, smoking cessation, alcohol reduction. 2. Coronary artery disease Patient has known coronary artery disease status post previous Angio plasty and stenting of the right coronary artery. T Thank you for allowing me to participate in the care of your patient. Please don't hesitate to call if any issues arise
--- NOTE | 2018-04-07 08:41 | PN.CARD_ITS ---
Subjectve: Patient seen and evaluated. Objective: Vital Signs Temp Pulse Resp BP Pulse Ox 98.7 F 68 18 113/85 H 97 04/07/18 06:18 04/07/18 06:47 04/07/18 06:18 04/07/18 06:18 04/07/18 06:18 Oxygen Flow Rate (L/min) 2 Oxygen Delivery Method Room Air Weight: 175 lb 7.807 oz Body Mass Index (BMI) 21.9 Intake and Output for Last 24 Hours 04/05/18 04/06/18 04/07/18 23:59 23:59 23:59 Intake Total 1380 / 1380 Balance 1380 / 1380 General: Awake, Alert, Oriented x 3 HEENT: PERRL, EOMI, Sclera Non Icteric Neck: Supple, Good ROM, No Lymph Node Enlargement Lungs: Clear to auscultation Cardiovascular: Regular Rhythm, Normal S1, Normal S2, No Murmurs, No Rubs, No Gallops Vascular: No Carotid Bruits, Normal Femoral Pulses, Normal Radial Pulses, Normal Dorsalis Pedal Pulse, Normal Posterior Tibial Pulses Abdomen: Bowel Sounds Present, Soft, Non Tender, No HSM, No Organomegaly Extremities: No Cyanosis, No Clubbing, No edema Neurological: No Focal Motor or Sensory Deficit Psych/Mental Status: Appropriate 04/06/18 21:56: Urine Color Yellow, Urine Clarity Sl. Cloudy, Urine pH 8.0, Ur Specific [place] 1.010, Urine Protein Negative, Urine Glucose (UA) Normal, Urine Ketones Negative, Urine Occult Blood 10 H, Urine Nitrite Negative, Urine Bilirubin Negative, Urine Urobilinogen Normal, Ur Leukocyte Esterase Negative, Urine RBC 0-5 SEEN, Urine WBC 0 SEEN 04/07/18 05:20: WBC 6.1, RBC 3.82 L, Hgb 12.7 L, Hct 37.9 L, MCV 99.2 H, MCH 33.2 H, MCHC 33.5, RDW 16.8 H, RDW Differential 59.7 H, Plt Count 238, MPV 9.7, Immature Gran % (Auto) 0.300, Neut % (Auto) 57.8, Lymph % (Auto) 25.6, [place] % (Auto) 10.1 H, Eos % (Auto) 5.5 H, Baso % (Auto) 0.7, Absolute Neuts (auto) 3.5, Total Counted Not Reportable 04/07/18 05:20: PT 12.9, INR 1.0, APTT 30.4 04/07/18 05:20: Sodium 144, Potassium 4.1, Chloride 107, Carbon Dioxide 28.0, Anion Gap 9, BUN 11, Creatinine 0.77, Est GFR (MDRD) Af Amer 136, Est GFR (MDRD) Non-Af 113, BUN/Creatinine Ratio 14.3, Glucose 77, Calcium 8.6 Rhythm: EKG: ECHO: Stress Test: Cardiac Cath: PCI: CT Surgery: Holter monitor: EPS: PPM: CXR: Chest CT Scan: Medical Necessity - Tobacco Use Smoking Status: Current every day smoker Assessment/Plan 1. Chest pain- with abnormal cardiac enzymes * The patient presented with somewhat atypical chest pain and minimal cardiac enzyme abnormality. * Cardiac catheterization demonstrated the following: * Normal left main coronary artery * Left anterior descending artery with mild to moderate proximal disease and mild diffuse mid and distal disease * Left circumflex artery with mild disease * Previously stented right coronary artery with mild in-stent stenosis. Mild diffuse distal disease noted * Preserved ejection fraction * Based on the above angiographic findings would continue aggressive medical therapy, smoking cessation, alcohol reduction. 2. Coronary artery disease * Patient has known coronary artery disease status post previous Angio plasty and stenting of the right coronary artery. T * * Thank you for allowing me to participate in the care of your patient. Please don't hesitate to call if any issues arise
--- NOTE | 2018-04-07 08:44 | CL.D_ITS ---
Patient Name: ORQUIDEA JUÁREZ Study Date: 04/07/2018 Performing: Socrates Monte MD Ht: 75.19 inches 191 cm : 1965 Wt: 176.37 lbs 80 kg Age: 52 Gender: male BSA: 2.08 PROCEDURE(S) PERFORMED [id number]/LV CLINICAL PROFILE AND INDICATIONS Indications: Stable Known CAD Heart Failure: None Stress/Imaging Stress/Image Study Performed: No CAD Presentations: Stable angina. CONCLUSIONS Non obstructive coronary arteries RECOMMENDATIONS Medical therapy DESCRIPTION OF PROCEDURE The patient arrived to the procedure lab. The risks and benefits of the procedure as well as a full d escription of our services here and current unavailability of surgical backup were fully explained to the patient and/or their significant other prior to the catheterization. The Timeout was completed, verifying the correct patient and procedure. The patient's procedural site was prepped and draped in the usual fashion. Local anesthetic was given subcutaneously to right radial region with Lidocaine 2% . Using a modified Seldinger technique, arterial access was obtained via the right radial artery, a 6 Fr sheath was inserted. Right Coronary Artery selective angiography was then performed in multiple v iews using a 5 Fr. 4.0 [place] catheter. Left Coronary Artery selective angiography was performed in mu ltiple views using a 5 Fr. 4.0 [place] catheter. Left Ventriculography was performed in ALV[place]Z projection using a 5 Fr. [place] catheter. LV to AO pullback pressures were then recorded.The arterial sheath was pulled and a TR Band was applied for hemostasis CORONARY ANGIOGRAPHY DOMINANCE: Right Dominant LEFT HEART ASSESSMENT Left Ventricular Ejection Fraction: by LV Gram 55 % Normal LV wall motion Normal Left Ventricular systolic function LEFT MAIN: Mild luminal irregularities LEFT ANTERIOR DECENDING ARTERY: PROX LAD: Mild luminal irregularities CIRCUMFLEX ARTERY: Mild luminal irregularities RIGHT CORONARY ARTERY: PROX RCA: Previously placed stent is patent MID RCA: Previously placed stent is patent DISTAL RCA: Mild luminal irregularities less than 30% COMPLICATIONS No Complications PROCEDURE MEDICATIONS Fentanyl 50 mcg IV Versed 1 mg IV Versed 1 mg IV Oxygen: 2 L/min via nasal cannula Heparin diluted in 23cc Heparinized saline. Patient given 3cc IA of this solution. 04/07/2018 08:22:09 Verapamil 2.5mg, Ntg 100mcgs, 2000 units of Heparin diluted in 23cc Heparinized saline. Patient give n 3cc IA of this solution. 04/07/2018 08:22:09 SUMMARY OF HEMODYNAMIC DATA Time AIR REST ECG 07:43:39 AO 107/68 (86) SA 08:22:54 LV 125/-6, 10 08:29:10 LV 119/-7, 4 08:29:16 LV 127/-6, 9 08:29:55 LV 125/-7, 8 08:30:01 LVp 125/-9, 7 08:30:05 AOp 132/69 (96) 08:30:10 Signed By Socrates Monte MD On 04/07/2018 8:43:56 AM Socrates Monte MD
[2018-04-07] MEDS: LORazepam 2 MG/ML Syringe IV (09:03)
[2018-04-07] MEDS: Folic Acid 1 MG Tablet PO (09:21)
[2018-04-07] MEDS: Thiamine Hydrochloride 100 MG Tablet PO (09:21)
[2018-04-07] MEDS: FLUoxetine 20 MG Capsule PO (09:44)
--- NOTE | 2018-04-07 10:49 | PCM.DC ---
- Discharge Diagnoses Current Active Problems: Current Active and Chronic Problems (Last Reviewed 04/06/18 @ 00:08 by Jourdan Alicia DO) NSTEMI (non-ST elevated myocardial infarction) (Acute) You will use the following diet at home:: Cardiac Discharge Activity: Return to Normal Activity Call your doctor if you observe: Shortness of breath, Dizziness, Fainting spells, Chest pain Instructions: ED Palpitations Allergies/Adverse Reactions: Allergies No Known Allergies Allergy (Verified 04/05/18 21:54) Medications to take at Discharge Fluoxetine [Prozac] 20 mg PO DAILY 05/27/17 Aspirin [Aspirin, Baby] 81 mg PO DAILY@0800 10/03/17 clopidogrel 75 mg tablet 75 mg PO DAILY #90 tab 01/04/18 metoprolol succinate ER 25 mg tablet,extended release 24 hr 25 mg PO DAILY #90 tab 01/04/18 Atorvastatin Calcium [Lipitor] 80 mg PO DAILY 03/24/18 Primary Care Physician: Kendell Lyons DO [Primary Care Provider] - As Needed Please follow up with your Primary Care Physician in: 1 Week Test Results: Test results from this visit will be discussed in further detail at your follow-up appointment, if applicable. Please Follow Up With: Socrates Monte MD When: 1-2 Weeks, May see DISTRICT ENGINEER/PA for hospital follow up Proposed Discharge Date: 04/07/18
--- NOTE | 2018-04-07 10:56 | DS.PCM_ITS ---
Discharge Date and Diagnosis Date of Admission: 04/05/18 Date of Discharge: 04/07/18 - Primary Discharge Diagnosis Active and Suspected Problems (Last Reviewed 04/06/18 @ 00:08 by Jourdan Alicia DO) 1. NSTEMI 2. CAD status post PCI x2 3. Recent left-sided rib fracture secondary to fall 4. Hypertension 5. Hyperlipidemia 6. Recent GI bleed with hematemesis 7. Alcohol abuse 8. Tobacco abuse 9. Depression/Anxiety - Secondary Discharge Diagnosis Chronic Problems (Last Reviewed 04/06/18 @ 00:08 by Jourdan Alicia DO) CAD (coronary artery disease) (Chronic) HTN (hypertension) (Chronic) HLD (hyperlipidemia) (Chronic) Tobacco use (Chronic) Alcohol abuse (Chronic) Atherosclerosis of coronary artery of [place] heart with angina pectoris (Chronic) BMS-Prox and Distal RCA 12/23/16 History of coronary artery stent placement (Chronic 12/23/16) BMS-Prox and Distal RCA 12/23/16 Smoking addiction (Chronic) Anxiety (Chronic) Noncompliance (Chronic) Hospital Course and Treatment Imaging Results: Diagnostic Data Chest X-Ray 04/05/18 23:07 IMPRESSION: No active pulmonary disease. Electronically Signed: Rolando Matute MD at 23:27 EST Tel , Service support , Dr. Monte- Cardiology Operations: None Procedures: Cardiac catheterization Summary of Care Provided: The patient is a 52 year old M was admitted 04/05/2018 due to palpitations. 1. NSTEMI-continue aspirin, Plavix, statin, beta-levon. Cardiology consulted. Patient follows with Dr. Monte. Patient underwent cardiac catheterization 04/07/18 which did not show obstructive coronary arteries. He will continue medical management. Follow-up with cardiology in 1-2 weeks. Follow-up with primary care physician in 1 week. 2. CAD status post PCI x2-follows with Dr. Monte. Continue aspirin, Plavix, statin, beta-levon. 3. Recent left-sided rib fracture secondary to fall (approximately 1 month ago) CT of chest 03/23/2018 showed subacute posterior left-sided eighth rib fracture. Patient states he fell and hurt his right ribs 1 week ago and was told he had a rib contusion. Requesting increase pain regimen. Instructed patient to continue tylenol as needed for pain. He was noted to continually request morphine and xanax during admission. 4. Hypertension-continue home metoprolol regimen. 5. Hyperlipidemia-continue statin regimen. 6. Recent GI bleed with hematemesis-[facility] gastroenterology consultation note in chart noted GI bleed suspected secondary to heavy NSAID use. Resolved with PPI and patient was scheduled for outpatient EGD. EGD report not yet available although patient states it was normal and he has not received biopsy results yet. 7. Alcohol abuse- CIWA/ativan protocol. Alcohol level on admission 190. Patient was recently admitted in February 2018 for acute alcohol withdrawal and seen by a [facility] service at that time. Declined to see [facility] during admission. States he has their information. Strongly encouraged alcohol cessation. 8. Tobacco abuse-encourage smoking cessation. Inpatient smoking cessation consult. 9. Depression/Anxiety-continue home fluoxetine regimen. General: Alert, Oriented x3, Cooperative HEENT: Atraumatic, PERRLA, EOMI, Normocephalic Neck: Supple, No JVD, Negative Carotid Bruits Lungs: Clear to auscultation, Normal air movement Cardiovascular: Regular rate, Regular Rhythm, Normal S1, Normal S2, No murmurs Abdomen: Bowel Sounds Present, Soft, Non Tender, Non-Distended Extremities: No clubbing, No cyanosis, No edema, Capillary Refill Less than 3 Seconds Skin: No rashes, No breakdown Musculoskeletal: No Tenderness to Palpation of Joints or Extremities Neurological: Cranial nerves II-XII grossly intact, Neuro grossly intact Psych/Mental Status: Normal Affect, Appropriate Patient seen and examined prior to discharge. Physical assessment as noted above. Patient is stable for discharge with follow up recommendations as noted above. This patient was seen by BETH Vogel under the supervision of Dr. Griggs. - Physical Exam Vital Signs Temp Pulse Resp BP Pulse Ox 97.8 F 68 17 112/65 95 04/07/18 09:04 04/07/18 10:08 04/07/18 10:08 04/07/18 10:08 04/07/18 10:08 Oxygen Flow Rate (L/min) 2 Oxygen Delivery Method Room Air Weight: 175 lb 7.807 oz Body Mass Index (BMI) 21.9 Intake and Output for Last 24 Hours 04/05/18 04/06/18 04/07/18 23:59 23:59 23:59 Intake Total 1380 / 1380 Balance 1380 / 1380 Laboratory Tests Past 24 Hrs 04/06/18 04/07/18 04/07/18 21:56 05:20 05:20 WBC 6.1 RBC 3.82 L Hgb 12.7 L Hct 37.9 L MCV 99.2 H MCH 33.2 H MCHC 33.5 RDW 16.8 H RDW Differential 59.7 H Plt Count 238 MPV 9.7 Immature Gran % (Auto) 0.300 Neut % (Auto) 57.8 Lymph % (Auto) 25.6 [place] % (Auto) 10.1 H Eos % (Auto) 5.5 H Baso % (Auto) 0.7 Absolute Neuts (auto) 3.5 Absolute Lymphs (auto) 1.55 Total Counted Not Reportable PT 12.9 INR 1.0 APTT 30.4 Sodium Potassium Chloride Carbon Dioxide Anion Gap BUN Creatinine Estim Creat Clear Calc Est GFR (MDRD) Af Amer Est GFR (MDRD) Non-Af BUN/Creatinine Ratio Glucose Calcium Urine Color Yellow Urine Clarity Sl. Cloudy Urine pH 8.0 Ur Specific [place] 1.010 Urine Protein Negative Urine Glucose (UA) Normal Urine Ketones Negative Urine Occult Blood 10 H Urine Nitrite Negative Urine Bilirubin Negative Urine Urobilinogen Normal Ur Leukocyte Esterase Negative Urine RBC 0-5 SEEN Urine WBC 0 SEEN Ur Squamous Epith Cells 0-5 SEEN Urine Bacteria 0 SEEN Urine Mucus 0 SEEN 04/07/18 05:20 WBC RBC Hgb Hct MCV MCH MCHC RDW RDW Differential Plt Count MPV Immature Gran % (Auto) Neut % (Auto) Lymph % (Auto) [place] % (Auto) Eos % (Auto) Baso % (Auto) Absolute Neuts (auto) Absolute Lymphs (auto) Total Counted PT INR APTT Sodium 144 Potassium 4.1 Chloride 107 Carbon Dioxide 28.0 Anion Gap 9 BUN 11 Creatinine 0.77 Estim Creat Clear Calc 126.35 Est GFR (MDRD) Af Amer 136 Est GFR (MDRD) Non-Af 113 BUN/Creatinine Ratio 14.3 Glucose 77 Calcium 8.6 Urine Color Urine Clarity Urine pH Ur Specific [place] Urine Protein Urine Glucose (UA) Urine Ketones Urine Occult Blood Urine Nitrite Urine Bilirubin Urine Urobilinogen Ur Leukocyte Esterase Urine RBC Urine WBC Ur Squamous Epith Cells Urine Bacteria Urine Mucus Discharge Diet: Low fat/ Low Cholesterol Discharge Activity: Return to Normal Activity Call your doctor if you observe: Shortness of breath, Dizziness, Fainting spells, Chest pain Home Medications: Medications to take at Discharge Fluoxetine [Prozac] 20 mg PO DAILY 05/27/17 Aspirin [Aspirin, Baby] 81 mg PO DAILY@0800 10/03/17 clopidogrel 75 mg tablet 75 mg PO DAILY #90 tab 01/04/18 metoprolol succinate ER 25 mg tablet,extended release 24 hr 25 mg PO DAILY #90 tab 01/04/18 Atorvastatin Calcium [Lipitor] 80 mg PO DAILY 03/24/18 Primary Care Physician: Kendell Lyons DO [Primary Care Provider] - As Needed Please follow up with your Primary Care Physician in: 1 Week Please Follow Up With: Socrates Monte MD When: 1-2 Weeks, May see CERTIFIED PEDIATRIC NURSE PRACTITIONER/PA for hospital follow up Patient Instructions: ED Palpitations Disposition: Home Minutes spent on discharge:: 35 Patient Condition:: Stable Medical Necessity - Tobacco Use Smoking Status: Current every day smoker Meaningful Use Info Meaningful Use Diagnoses (Choose all that apply): AMI - AMI Aspirin given w/in 24hrs of arrival?: Yes ASA at discharge?: Yes Statins at discharge?: Yes Kenny/ARB at discharge?: No Reason Kenny/ARB not ordered:: Not indicated Beta Levon at discharge?: Yes Done w/ Acute AL measure.: Yes
--- NOTE | 2018-04-10 16:16 | CASEMGMT ---
RN CM Discharge Follow-up Phone Call: THELMA: Roxi Strata: 4 Call Date: 04/10/18 Discharge Date: 04/07/18 Time of Call: 1615 Duration: 1 min Admitting Diagnosis: NSTEMI RN MALCOLM attempted to complete follow-up phone call after recent hospitalization. No answer, voice message left with return contact information.
== END 2018-04-07 12:45 | disposition home or self-care (01) | DRG 281 ==
LOC: ED 22:51 → PCU 23:51
PROVIDERS: Internal Medicine Cardiovascular Disease; Emergency Provider Emergency Medicine; Family Provider Family Medicine; PCP Family Medicine; Visit Provider Internal Medicine
DX: I21.4 Non-ST elevation (NSTEMI) myocardial infarction (principal); F10.239 Alcohol dependence with withdrawal, unspecified; I10 Essential (primary) hypertension; E78.5 Hyperlipidemia, unspecified; I25.10 Atherosclerotic heart disease of native coronary artery without angina pectoris; Y90.6 Blood alcohol level of 120-199 mg/100 ml; F41.9 Anxiety disorder, unspecified; F32.9 Major depressive disorder, single episode, unspecified; F17.200 Nicotine dependence, unspecified, uncomplicated; I25.2 Old myocardial infarction; Z79.82 Long term (current) use of aspirin; Z79.899 Other long term (current) drug therapy; Z95.5 Presence of coronary angioplasty implant and graft; Z79.02 Long term (current) use of antithrombotics/antiplatelets; Z87.19 Personal history of other diseases of the digestive system; Z76.5 Malingerer [conscious simulation]; S22.32XD Fracture of one rib, left side, subsequent encounter for fracture with routine healing; W19.XXXD Unspecified fall, subsequent encounter
CPT/HCPCS: 36415; 71045; 80048; 80053; 80061; 80320; 81001; 84443; 84484; 85025; 85610; 85730; 93005; 93458; 97802; 99152; 99153; 99283; J7030; A4216; C1769; C1894; G0480; Q9967

== ENCOUNTER 2018-04-08 14:11 | Observation (INO) | payer BC, SELFPAY ==
[2017-01-12 13:36] VITALS: BMI 26.6
[2018-04-06 00:26] VITALS: BMI 21.9
[2018-04-08] VITALS (10 sets, daily range): BP systolic 98–122; BP diastolic 59–80; PULSE 59–79; RESP 14–18; TEMP 36.6–37.1; O2SAT 93–100; BMI 22.5; BMI 21.4
--- NOTE | 2018-04-08 14:29 | RAD_ITS ---
STUDY: X-RAY CHEST REASON FOR EXAM: Male, 52 years old. Chest pain for 2 days. TECHNIQUE: Single AP portable view of the chest. COMPARISON: 04/05/2018. FINDINGS: The lungs again are somewhat hyperinflated. No focal infiltrate is seen. There is minimal atelectasis or scarring in the left lung base. There is no demonstrated pleural abnormality. Normal size heart. Normal mediastinum and stephen. Normal visualized pulmonary arteries. Normal visualized aortic arch and descending thoracic aorta. The bony structures are unchanged. There is no demonstrated abnormality of the visualized soft tissue structures of the upper abdomen. RAD/Chest 1 View (Portable) IMPRESSION: No active pulmonary disease. Electronically Signed: Rolando Matute MD at 15:06 EST Tel , Service support ,
--- NOTE | 2018-04-08 14:30 | EKG12_ITS ---
Test Reason : CP Blood Pressure : / mmHG Vent. Rate : 059 BPM Atrial Rate : 059 BPM P-R Int : 160 ms QRS Dur : 094 ms QT Int : 416 ms P-R-T Axes : 002 000 038 degrees QTc Int : 411 ms Sinus bradycardia Otherwise normal ECG Confirmed by ED VENTURA, GURPREET ([id number]), mapping editor ASHLEY SHIELDS ([id number] on 04/10/2018 2:13:53 PM Referred By: Adelaide Felton Confirmed By:GURPREET WARD MD
[2018-04-08 14:38] LABS: Absolute Lymphocyte Count 2.11 X10^3/ul (0.83-4.51); Absolute Neutrophil Count 4.8 X10^3/uL (2.0-7.7); Basophil# 0.02 X10^3/uL; Basophil% 0.3 % (0-1); Eosinophil# 0.35 X10^3/uL; Eosinophils% 4.4 % (0-5); Hematocrit 36.5 % (40-54); Hemoglobin 12.5 g/dl (13.0-16.5); Lymphocyte # 2.11 X10^3/ul (4.0); Lymphocyte % 26.6 % (19-41); Mean Corp Hgb Conc 34.2 g/gl (32-36); Mean Corpuscular Hgb 34.2 pg (27.0-32.0); Mean Platelet Vol. 9.5 fl (6.2-12.0); Monocyte# 0.65 X10^3/uL; Monocyte% 8.2 % (0-10); Neutrophil # 4.77 X10^3/uL (2.7-7.7); Neutrophil % 60.2 % (47-70); POSITIVE COUNT NO; POSITIVE DIFFERENTIAL NO; POSITIVE MORPHOLOGY NO; Platelet Count 220 K/mm3 (150-450); RBC Distribution Width CV 15.8 % (11.6-14.6); RBC Distribution Width SD 56.9 fl (35.1-43.9); Red Blood Count 3.65 M/mm3 (4.6-6.2); White Blood Count 7.9 K/mm3 (4.4-11.0)
[2018-04-08 14:54] LABS: Anion Gap 7 (5-15); BUN 4 mg/dL (7-18); BUN/Creat Ratio 6.3 RATIO (10-20); Calcium,Total 7.9 mg/dL (8.5-10.1); Chloride 102 mmol/L (98-107); Creatinine, Serum 0.64 mg/dL (0.70-1.30); EST Glomerular Filtration Rate 140 mL/min (>60); Est Glom Filt Rate - Afr Amer 169 mL/min (>60); Estimated Creatinine Clearance 155.92 ml/min; Glucose 79 mg/dL (74-106); Potassium 4.3 mmol/L (3.5-5.1); Sodium Level 131 mmol/L (136-145)
--- NOTE | 2018-04-08 15:11 | ED.VISSUMM ---
- ER Visit Summary Date of Service: 04/08/18 Chief Complaint: Chest pain History of Present Illness: The patient is a 52 M presenting with chest pain. This started around 1130 this morning. He has had constant left-sided chest pain. He denies shortness of breath or fever. He was recently admitted to the hospital and had a heart cath yesterday which showed nonobstructive coronary disease. Patient admits to alcohol use today. Denies other complaints. Physical Examination: Vitals are stable. Patient is afebrile. Alert no acute distress. HEENT exam is unremarkable. Neck is supple. Lungs are clear and equal bilaterally. Nontender Heart is regular rate and rhythm. Abdomen is soft nontender nondistended. Extremities are unremarkable. Skin is warm and dry. No focal neurologic deficit. Remainder of exam is unremarkable. Emergency Department Course and Treatment: Patient was given aspirin on arrival. EKG is sinus bradycardia rate of 59 with no acute ischemic changes. Chest x-ray shows no acute process. CBC normal except for hemoglobin 12.5. Chemistries normal except for sodium 131, BUN 4, creatinine 0.64. Troponin is negative. D-dimer is 1.29. Due to elevated d-dimer CTA of the chest was obtained and shows small right upper and lower lobe segmental pulmonary emboli. No evidence of right heart strain or saddle embolus. Stable 4 mm right upper lobe noncalcified nodule. Subacute, healed left posterior eighth rib fracture. Mild centrilobular emphysema. Alcohol level 265. He was given Lovenox. Will discuss with hospitalist for admission. Disposition: Admission Impression: Multiple pulmonary embolism, alcohol intoxication This note was generated with [employer] dictation software. It may contain incorrect words, spelling, and punctuation that were not noted in review of the chart prior to signing ED Disposition - Plan for ED Patient: Referrals: Kendell Lyons DO [Primary Care Provider] -
--- NOTE | 2018-04-08 15:14 | ED.DCSUM_ITS ---
- ER Visit Summary Date of Service: 04/08/18 Chief Complaint: Chest pain History of Present Illness: The patient is a 52 M presenting with chest pain. This started around 1130 this morning. He has had constant left-sided chest pain. He denies shortness of breath or fever. He was recently admitted to the hospital and had a heart cath yesterday which showed nonobstructive coronary disease. Patient admits to alcohol use today. Denies other complaints. Physical Examination: Vitals are stable. Patient is afebrile. Alert no acute distress. HEENT exam is unremarkable. Neck is supple. Lungs are clear and equal bilaterally. Nontender Heart is regular rate and rhythm. Abdomen is soft nontender nondistended. Extremities are unremarkable. Skin is warm and dry. No focal neurologic deficit. Remainder of exam is unremarkable. Emergency Department Course and Treatment: Patient was given aspirin on arrival. EKG is sinus bradycardia rate of 59 with no acute ischemic changes. Chest x- ray shows no acute process. CBC normal except for hemoglobin 12.5. Chemistries normal except for sodium 131, BUN 4, creatinine 0.64. Troponin is negative. D- dimer is 1.29. Due to elevated d-dimer CTA of the chest was obtained and shows small right upper and lower lobe segmental pulmonary emboli. No evidence of right heart strain or saddle embolus. Stable 4 mm right upper lobe noncalcified nodule. Subacute, healed left posterior eighth rib fracture. Mild centrilobular emphysema. Alcohol level 265. He was given Lovenox. Will discuss with hospitalist for admission. Disposition: Admission Impression: Multiple pulmonary embolism, alcohol intoxication This note was generated with [employer] dictation software. It may contain incorrect words, spelling, and punctuation that were not noted in review of the chart prior to signing ED Disposition - Plan for ED Patient: Referrals: Kendell Lyons DO [Primary Care Provider] -
[2018-04-08] MEDS: Morphine 4 MG/ML Syringe IV (15:28)
[2018-04-08] MEDS: Aspirin 325 MG Tablet PO (15:28)
[2018-04-08] MEDS: Ondansetron 4 MG/2 ML Vial IV (15:28)
[2018-04-08 16:13] LABS: D-Dimer Quantitative (DVT/PE) 1.29 FEU/ug/m (0.27-0.49)
--- NOTE | 2018-04-08 16:16 | ED.RN ---
ddimer 1.29 called from the lab dr green aware
--- NOTE | 2018-04-08 16:21 | CT_ITS ---
STUDY: CTA CHEST REASON FOR EXAM: Male, 52 years old. Chest pain RADIATION DOSAGE (If Supplied By Facility): CTDIvol = ( 14.77 ) mGy, DLP = ( 621.10 ) mGycm TECHNIQUE: The examination was performed with the intravenous administration of 100 mL Isovue-370. Post-processing of the angiographic images was performed, with multiplanar reformation and 3D reconstruction. Individualized dose optimization techniques were used for this CT. COMPARISON: Chest CT from 03/22/2018 FINDINGS: Normal enhancement of the main pulmonary artery and right and left pulmonary arteries. Small filling defects are identified within the right anterior upper lobe segmental branch (axial image 130) and superior segment right lower lobe branch (image 117). No saddle embolus. No evidence of right heart strain. Normal thoracic aorta and visualized great vessels. There is no demonstrated aortic dissection. Normal heart and pericardium. There are calcifications of the coronary arteries. Normal mediastinum. Normal hilar regions. Normal visualized trachea and bronchi. The lungs are well expanded. 4 mm noncalcified nodule in the lateral right upper lobe on image 139 is stable. There are mild emphysematous changes of the bilateral upper lobes. Normal pleura. Normal chest wall structures. Subacute unhealed fracture of posterior left eighth rib is stable. Normal visualized upper abdomen. CT/CTA Chest W/WO Contrast IMPRESSION: 1. Small right upper and lower lobe segmental pulmonary emboli. No evidence of right heart strain or saddle embolus. 2. Stable 4 mm right upper lobe noncalcified nodule. 3. Subacute, healed left posterior eighth rib fracture. 4. Mild centrilobular emphysema. Electronically Signed: Giuseppe Cohen MD at 17:34 EST , Service support ,
[2018-04-08] MEDS: LORazepam 2 MG/ML Syringe 1 MG IV (17:00)
[2018-04-08] MEDS: Morphine 4 MG/ML Syringe 6 MG IV (18:08)
[2018-04-08] MEDS: Enoxaparin 80 MG/0.8 ML Syringe SC (18:30)
--- NOTE | 2018-04-08 18:34 | HP.PCM_ITS ---
Problem List (1) Acute pulmonary embolism Status: Acute Qualifiers: Pulmonary embolism type: unspecified (2) CAD (coronary artery disease) Status: Chronic Qualifiers: Coronary Disease-Associated Artery/Lesion type: unspecified vessel or lesion type [place] vs. transplanted heart: unspecified whether [place] or transplanted heart Associated angina: angina presence unspecified Qualified Code(s): I25.10 - Atherosclerotic heart disease of [place] coronary artery without angina pectoris (3) HTN (hypertension) Status: Chronic Qualifiers: Hypertension type: essential hypertension Qualified Code(s): I10 - Essential (primary) hypertension (4) HLD (hyperlipidemia) Status: Chronic Qualifiers: Hyperlipidemia type: unspecified Qualified Code(s): E78.5 - Hyperlipidemia, unspecified (5) Alcohol abuse Status: Chronic (6) Atherosclerosis of coronary artery of [place] heart with angina pectoris Status: Chronic Comment: BMS-Prox and Distal RCA 12/23/16 (7) Smoking addiction Status: Chronic (8) Anxiety Status: Chronic History of Present Illness Date of Admission: 04/08/18 Chief Complaint: Chest pain The patient is a 52 y/o M w/ PMHx: CAD s/p PCI x 2, HTN, HLD, Tobacco use, Anxiety, EtOH Abuse with 4-10 beers daily with most recent usage AM on day of presentation w/ recent admission 04/06/18-04/07/18 following evaluation for chest pain w/ palpitations w/ indeterminate cardiac enzymes felt possibly consistent with NSTEMI repeat cardiac catheterization performed during the admission with a nonobstructive coronary arteries with EF 55% with discharge on medical therapy with additional history of recent GI bleed of note who now re-presents to the [facility] ED on 04/08/18 with recurrent chest discomfort, stabbing, left-sided without any radiation with no associated dyspnea, diaphoresis, nausea, emesis starting approximately 1130 with recent heavy alcohol consumption earlier in the a.m. with chest pain described as 8-9 out of 10 however resolved upon evaluation of patient. In the ED patient workup included T 98.7, heart rate 62, BP 113/85, respiratory rate 18, 97% on room air, CBC with W BC 7.9, hemoglobin 12.5, platelet 220 without market shift, d-dimer 1.29, BMP with sodium 131, troponin < 0.015, EKG with no acute evidence of ischemia, alcohol level 265, chest x-ray with no acute cardiopulmonary findings, CTPA w/ small right upper and lower lobe segmental pulmonary emboli with no evidence of right heart strain or saddle embolus with a stable 4 mm right upper lobe noncalcified nodule and a subacute healed left posterior eighth rib fracture with mild centrilobular emphysema. In the ED patient administered Zofran, morphine, Ativan, therapeutic Lovenox as well as initially aspirin therapy. Past Medical History Past Medical History (Chronic Problems): Chronic Problems (Last Reviewed 04/06/18 @ 00:08 by Jourdan Alicia DO) CAD (coronary artery disease) (Chronic) HTN (hypertension) (Chronic) HLD (hyperlipidemia) (Chronic) Tobacco use (Chronic) Alcohol abuse (Chronic) Atherosclerosis of coronary artery of [place] heart with angina pectoris (Chronic) BMS-Prox and Distal RCA 12/23/16 History of coronary artery stent placement (Chronic 12/23/16) BMS-Prox and Distal RCA 12/23/16 Smoking addiction (Chronic) Anxiety (Chronic) Noncompliance (Chronic) Medical History: Medical History (Last Reviewed 04/06/18 @ 00:08 by Jourdan Alicia DO) Atherosclerosis of coronary artery of [place] heart with angina pectoris (Chronic) I25.119 BMS-Prox and Distal RCA 12/23/16 Smoking addiction (Chronic) F17.200 Anxiety (Chronic) F41.9 Noncompliance (Chronic) Z91.19 STEMI (ST elevation myocardial infarction) (Resolved) 12/23/16 STEMI (ST elevation myocardial infarction) I21.3 12/23/16 Allergies No Known Allergies Allergy (Verified 04/05/18 21:54) Home Medications: Ambulatory Orders Medication Instructions Recorded Aspirin [Aspirin, Baby] 81 mg PO DAILY@0800 10/03/17 clopidogrel 75 mg tablet 75 mg PO DAILY #90 tab 01/04/18 metoprolol succinate ER 25 mg 25 mg PO DAILY #90 tab 01/04/18 tablet,extended release 24 hr Atorvastatin Calcium [Lipitor] 80 mg PO DAILY 03/24/18 Surgical History: Surgical History (Last Reviewed 04/06/18 @ 00:09 by Jourdan Alicia DO) History of coronary artery stent placement (Chronic) Onset Date: 12/23/16 Z95.5 BMS-Prox and Distal RCA 12/23/16 History of left heart catheterization Z98.890 12/23/16- PCI with BM stent to prox RCA & distal RCA; 01/12/17- patent BM stents; Surgical History: - - PCI x 2, T+A, L inguinal hernia repair. Psychiatric History: Anxiety, Depression Lives: Alone Smoking Status: Current every day smoker - Currently 0.5-1.5 ppd currently but noted can also smoke up to a carton. Tobacco Use: Cigarettes Alcohol: Heavy - Heavy - 4-10, 12 ounce beers daily, denies any hard liquor intake. Drugs: None - *Family History Sibling Family History: Family History (Last Reviewed 04/06/18 @ 00:09 by Juordan Alicia DO) Father Myocardial infarction, Onset Age: 36 Mother Myocardial infarction Cancer History Items: - - Patient notes a history of a sister who underwent a CABG early in life. Maternal Family History: Family History (Last Reviewed 04/06/18 @ 00:09 by Jourdan Alicia DO) Father Myocardial infarction, Onset Age: 36 Mother Myocardial infarction Cancer History Items: - - Patient notes a maternal family history of coronary disease with at least 6 stents during her lifetime. Paternal Family History: Family History (Last Reviewed 04/06/18 @ 00:09 by Jourdan Alicia DO) Father Myocardial infarction, Onset Age: 36 Mother Myocardial infarction Cancer History Items: - - Patient notes a paternal family history of heart disease, passing secondary to fatal ID at age 36. Review of Systems Constitutional: Reports: Malaise, Weakness, Fatigue. Denies: Chills, Fever, Weight Change HEENT: Denies: Head Aches, Sinus Congestion, Sinus Drainage Cardiovascular: Reports: Chest Pain. Denies: Chest Pressure, Chest Tightness, Heaviness, Light Headedness, Orthopnea, Palpitations, Syncope Respiratory: Denies: Cough, Shortness of breath at rest, Sputum production Gastrointestinal: Denies: Abdominal Pain, Nausea, Vomiting Genitourinary: Denies: Dysuria Musculoskeletal: Denies: Joint Pain, Joint Tenderness Skin: Denies: Rash, Wounds Neurological: Denies: Numbness, Tingling, Focal weakness Psychiatric: Denies: Anxiety, Depression, Homicidal Ideations, Suicidal Ideations Hematologic/ Lymphatic: Denies: Easy Bruising, Easy Bleeding VTE Information - Inpt Only VTE Present on Admission: No VTE Mechan Device Prophylaxis: SCD's VTE Pharm Prophylaxis ordered?: Yes Patient Problems: Active and Suspected Problems (Last Reviewed 04/06/18 @ 00:08 by Jourdan Alicia DO) Acute pulmonary embolism (Acute) Subjective: Seated upright in the ED bed, mildly tremulous hands, no acute distress otherwise. Objective: Physical Examination: General: awake, alert, oriented x 3 and cooperative, seated upright in the ED, mildly tremulous, fatigued otherwise no acute distress. Skin: normal color, turgor, no icterus, cyanosis. HEENT: AT/NC, EOMI, PERRLA, dry MM, no carotid bruits or JVD noted. Lungs: Diminished BS BL, > bases, mild effort, TTP L sided chest, no rales, ronchi or wheezing. Heart: Regular rate with regular rhythm; no gallop, rub audible. Abdomen: soft, NTTP, ND, normal BS, + HM. Extremities: no cyanosis, clubbing, mild BL ankle edema nonpitting. Neurological: patient awake, alert, oriented x 3; cognitive function not baseline intact secondary to acute EtOH withdrawal; pupils equally reactive to light and accomodation; cranial nerves II-XII grossly normal, moving all 4 extremities, anxious, moving, tremulous, no focal deficits, strength moderately globally decreased. Psychiatric: affect appears fatigued, no acute evidence of depressive feelings. - Physical Exam Vital Signs Temp Pulse Resp BP Pulse Ox 97.8 F 69 16 122/80 H 98 04/08/18 14:12 04/08/18 16:24 04/08/18 16:24 04/08/18 18:00 04/08/18 16:24 Oxygen Delivery Method Room Air Weight: 180 lb Body Mass Index (BMI) 22.5 Laboratory Tests Past 24 Hrs 04/08/18 04/08/18 04/08/18 14:24 14:24 14:24 WBC 7.9 RBC 3.65 L Hgb 12.5 L Hct 36.5 L MCV 100.0 H MCH 34.2 H MCHC 34.2 RDW 15.8 H RDW Differential 56.9 H Plt Count 220 MPV 9.5 Immature Gran % (Auto) 0.300 Neut % (Auto) 60.2 Lymph % (Auto) 26.6 [place] % (Auto) 8.2 Eos % (Auto) 4.4 Baso % (Auto) 0.3 Absolute Neuts (auto) 4.8 Absolute Lymphs (auto) 2.11 Total Counted Not Reportable D-Dimer Quant (PE/DVT) Sodium 131 L Potassium 4.3 Chloride 102 Carbon Dioxide 22.0 Anion Gap 7 BUN 4 L Creatinine 0.64 L Estim Creat Clear Calc 155.92 Est GFR (MDRD) Af Amer 169 Est GFR (MDRD) Non-Af 140 BUN/Creatinine Ratio 6.3 L Glucose 79 Calcium 7.9 L Troponin I < 0.015 Ethyl Alcohol Cancelled 04/08/18 04/08/18 14:25 15:20 WBC RBC Hgb Hct MCV MCH MCHC RDW RDW Differential Plt Count MPV Immature Gran % (Auto) Neut % (Auto) Lymph % (Auto) [place] % (Auto) Eos % (Auto) Baso % (Auto) Absolute Neuts (auto) Absolute Lymphs (auto) Total Counted D-Dimer Quant (PE/DVT) 1.29 H* Sodium Potassium Chloride Carbon Dioxide Anion Gap BUN Creatinine Estim Creat Clear Calc Est GFR (MDRD) Af Amer Est GFR (MDRD) Non-Af BUN/Creatinine Ratio Glucose Calcium Troponin I Ethyl Alcohol 265.0 Assessment/Plan All Active Problems (Last Reviewed 04/06/18 @ 00:08 by Jourdan Alicia DO) Acute pulmonary embolism (Acute) Acute, mixed level of activity, alcohol withdrawal delirium (Acute) NSTEMI (non-ST elevated myocardial infarction) (Acute) Intermittent palpitations (Acute) Chest pain (Acute) STEMI (ST elevation myocardial infarction) (Resolved) The patient is a 52 y/o M w/ PMHx: CAD s/p PCI x 2, HTN, HLD, Tobacco use, Anxiety, EtOH Abuse with 4-10 beers daily with most recent usage AM on day of presentation w/ recent admission 04/06/18-04/07/18 following evaluation for chest pain w/ palpitations w/ indeterminate cardiac enzymes felt possibly consistent with NSTEMI repeat cardiac catheterization performed during the admission with a nonobstructive coronary arteries with EF 55% with discharge on medical therapy with additional history of recent GI bleed of note who now re-presents to the [facility] ED on 04/08/18 with recurrent chest discomfort, stabbing, left-sided without any radiation with no associated dyspnea, diaphoresis, nausea, emesis starting approximately 1130 with recent heavy alcohol consumption earlier in the a.m. with chest pain described as 8-9 out of 10 however resolved upon evaluation of patient. (1) Chest pain secondary to Acute Pulmonary Embolism: ED patient workup included T 98.7, heart rate 62, BP 113/85, respiratory rate 18, 97% on room air, CBC with W BC 7.9, hemoglobin 12.5, platelet 220 without market shift, d-dimer 1.29, BMP with sodium 131, troponin < 0.015, EKG with no acute evidence of ischemia, alcohol level 265, chest x-ray with no acute cardiopulmonary findings, CTPA w/ small right upper and lower lobe segmental pulmonary emboli with no evidence of right heart strain or saddle embolus with a stable 4 mm right upper lobe noncalcified nodule and a subacute healed left posterior eighth rib fracture with mild centrilobular emphysema. Patient with no recent marked surgeries or recent travel but patient is not the best historian and is a heavy drinker. Will admit to PCU, maintain on cardiac telemetry, obtain ECHO, BNP and BL LE DVT US. Will continue therapeutic lovenox regimen with pending AM insurance oral regimen investigation. Added PPI twice daily given patient history of prior GI bleed and currently now on aspirin, Plavix and anticoagulation. (2) EtOH Abuse: Patient notes routine consumption of 4-5 normally, 12 ounce beer s per day; however, from records often more. Will maintain on CIWA protocol, MVI, thiamine and folic acid. Mag and phos pending. (3) CAD w/ ? Recent NSTEMI: s/p PCI BMS-Prox and Distal RCA 12/23/16, follows w/ Dr. Monte, non-compliance history, continue home regimen asa, plavix, statin, BB. Patient recent admission with repeat cardiac catheterization as noted with nonobstructive coronary arteries with continue medical management therapy and cardiac enzymes of note only elevated up to 0.290 therefore given acute presentation currently suspect that elevation possibly secondary to acute PE. (5) Hypertension: Continue home regimen including metoprolol, PRN hydralazine. (6) Hyperlipidemia: Continue home statin regimen. (7) Anxiety and Depression: Not on regimen, had previously been on Prozac. Frequently asking for anxiety medicine specifically Ativan. (8) Tobacco Abuse: Encouraged cessation, inpatient consultation per RT, NR if desired. (9) Chronic COPD: ATC duonebs, PRN albuterol, HOB, IS parameters. (10) History of Recent GI bleed: Unclear specific history but given patient need for aspirin, Plavix and now anticoagulation placed on twice daily Protonix. (11) DVT Prophylaxis: SCDs, therapeutic Lovenox pending a.m. SW/CM assist for cost evaluation for oral anticoagulant.
[2018-04-08] MEDS: 0.9% Normal Saline 1,000 ML 100 ML IV (20:07)
[2018-04-08] MEDS: LORazepam 2 MG/ML Syringe IV ×2 (20:08→22:32)
--- NOTE | 2018-04-08 20:18 | VDLE_ITS ---
Reason For Study: PULM EMB RIGHT LEFT GSV is normal. GSV is normal. CFV is compressible, spontaneous, phasic, CFV is compressible, spontaneous, phasic, competent and demonstrates normal competent, and demonstrates normal augmentation. augmentation. FV is compressible, spontaneous, phasic, FV is compressible, spontaneous, phasic, competent and demonstrates normal competent and demonstrates normal augmentation. augmentation. POP V is compressible, spontaneous, phasic, POP V is compressible, spontaneous, phasic, competent and demonstrates normal competent and demonstrates normal augmentation. augmentation. T/P Trunk is compressible. T/P Trunk is compressible. PTV is compressible. PTV is compressible. RT PerV is compressible. LT PerV is compressible. The SSV coming off of the T/P Trunk is not dilated and partially compressible with heterogenous echoes consistent with chronic superficial thrombus. The remainder of the SSV is compressible and thick walled. Procedure Exam performed portable in patient room. A preliminary report was called and/or faxed to PCU. Interpretation Summary Deep veins of the lower extremities are bilaterally patent and compressible segmentally. There is no evidence of deep vein thrombosis on either side. Valvular competence appears intact within the proximal deep venous systems bilaterally. The greater saphenous veins appear bilaterally patent and compressible segmentally. Chronic venous changes are noted in the right small saphenous vein. The left small saphenous vein was not imaged. Ordering Physician: Adelaide Felton Referring Physician: LOBO MORGAN Performed By: Marely Bernal, NASEEM, RVT
[2018-04-08 20:24] LABS: Phosphorus 3.8 mg/dL (2.5-4.9)
[2018-04-08] MEDS: Morphine 2 MG/ML Syringe IV (20:31)
[2018-04-08] MEDS: Pantoprazole Sodium 40 MG Tablet PO (20:40)
[2018-04-08 20:51] LABS: BNP,B-Type NATRIURETIC PEPTIDE 73.4 pg/mL (0-100)
[2018-04-08] MEDS: 0.9% NaCl Peripheral Flush Adult/Peds IV (22:32)
[2018-04-09] VITALS (12 sets, daily range): BP systolic 104–128; BP diastolic 64–83; PULSE 58–112; RESP 16–18; TEMP 36.5–37.1; O2SAT 93–97
[2018-04-09] MEDS: Morphine 2 MG/ML Syringe IV ×2 (00:43→08:13)
[2018-04-09] MEDS: 0.9% NaCl Peripheral Flush Adult/Peds IV ×2 (00:44→05:44)
[2018-04-09] MEDS: LORazepam 2 MG/ML Syringe IV ×4 (01:27→12:41)
[2018-04-09] MEDS: HYDROcodone Bitartrate/Apap 5/325 Tablet PO ×3 (03:34→15:21)
--- NOTE | 2018-04-09 05:55 | EKG12_ITS ---
Test Reason : AM EKG Blood Pressure : / mmHG Vent. Rate : 061 BPM Atrial Rate : 061 BPM P-R Int : 158 ms QRS Dur : 086 ms QT Int : 424 ms P-R-T Axes : 051 -02 042 degrees QTc Int : 426 ms Normal sinus rhythm Normal ECG When compared with ECG of 08-APR-2018 14:14, MANUAL COMPARISON REQUIRED, DATA IS UNCONFIRMED Confirmed by ED VENTURA, GURPREET ([id number]), industrial editor ASHLEY SHIELDS ([id number] on 04/11/2018 1:14:35 PM Referred By: Adelaide Felton Confirmed By:GURPREET WARD MD
[2018-04-09 06:34] LABS: Hematocrit 36.1 % (40-54); Hemoglobin 11.7 g/dl (13.0-16.5); Mean Corp Hgb Conc 32.4 g/gl (32-36); Mean Corpuscular Hgb 32.5 pg (27.0-32.0); Mean Corpuscular Volume 100.3 fL (80-94); Mean Platelet Vol. 9.6 fl (6.2-12.0); Platelet Count 219 K/mm3 (150-450); RBC Distribution Width CV 16.5 % (11.6-14.6); RBC Distribution Width SD 60.8 fl (35.1-43.9); White Blood Count 6.7 K/mm3 (4.4-11.0)
[2018-04-09 06:36] LABS: Scan Indicated on CBC? Y/N NO
[2018-04-09 06:55] LABS: Anion Gap 7 (5-15); BUN 10 mg/dL (7-18); BUN/Creat Ratio 13.9 RATIO (10-20); Calcium,Total 7.9 mg/dL (8.5-10.1); Chloride 110 mmol/L (98-107); Creatinine, Serum 0.72 mg/dL (0.70-1.30); EST Glomerular Filtration Rate 121 mL/min (>60); Est Glom Filt Rate - Afr Amer 147 mL/min (>60); Glucose 75 mg/dL (74-106); Potassium 4.6 mmol/L (3.5-5.1); Sodium Level 143 mmol/L (136-145)
[2018-04-09] MEDS: Aspirin 81 MG TAB.CHEW PO (08:07)
[2018-04-09] MEDS: Multivitamins,Ther W-Minerals Tablet 1 TABLET PO (08:07)
[2018-04-09] MEDS: Folic Acid 1 MG Tablet PO (08:07)
[2018-04-09] MEDS: Thiamine Hydrochloride 100 MG Tablet PO (08:07)
[2018-04-09] MEDS: Ipratropium/Albuterol Sulfate 3 ML AMPUL.NEB INHALATION (08:13)
[2018-04-09] MEDS: Enoxaparin 80 MG/0.8 ML Syringe SC (09:48)
[2018-04-09] MEDS: Clopidogrel Bisulfate 75 MG Tablet PO (10:24)
--- NOTE | 2018-04-09 13:06 | DCINST_ITS ---
- Discharge Diagnoses Current Active Problems: Current Active and Chronic Problems (Last Reviewed 04/06/18 @ 00:08 by Jourdan Alicia DO) Acute pulmonary embolism (Acute) You will use the following diet at home:: Cardiac Discharge Activity: Return to Normal Activity Additional Instructions: Recommend outpatient echocardiogram and hypercoagulable workup following completetion of 6 months of anticoagulation. Please discuss these with PCP. Allergies/Adverse Reactions: Allergies No Known Allergies Allergy (Verified 04/05/18 21:54) Medications to take at Discharge Aspirin [Aspirin, Baby] 81 mg PO DAILY@0800 10/03/17 clopidogrel 75 mg tablet 75 mg PO DAILY #90 tab 01/04/18 metoprolol succinate ER 25 mg tablet,extended release 24 hr 25 mg PO DAILY #90 tab 01/04/18 Atorvastatin Calcium [Lipitor] 80 mg PO DAILY 03/24/18 Fluoxetine HCl 20 mg PO DAILY 04/09/18 Hydroxyzine HCl 1 - 2 tab PO QHS 04/09/18 Oxycodone HCl/Acetaminophen [Oxycodone-Acetaminophen 5-325] 1 tab PO Q6H PRN PRN 04/09/18 Pantoprazole Sodium [Protonix] 40 mg PO DAILY 04/09/18 Rivaroxaban [Xarelto] 15 mg PO BID #42 tablet 04/09/18 Rivaroxaban [Xarelto] 20 mg PO DAILY #30 tablet 04/09/18 The following prescriptions were given: Rivaroxaban [Xarelto] 20 mg PO DAILY #30 tablet Rivaroxaban [Xarelto] 15 mg PO BID #42 tablet Primary Care Physician: Kendell Lyons DO [Primary Care Provider] - Please follow up with your Primary Care Physician in: 3-5 Days Test Results: Test results from this visit will be discussed in further detail at your follow- up appointment, if applicable. Please Follow Up With: Saroj Hidalgo NP-C When: As scheduled 04/17/2018 Proposed Discharge Date: 04/09/18
--- NOTE | 2018-04-09 13:07 | PCM.DC.SUM ---
<Mary Menjivar - Last Filed: 04/09/18 13:26> Discharge Date and Diagnosis Date of Admission: 04/08/18 Date of Discharge: 04/09/18 - Primary Discharge Diagnosis Active and Suspected Problems (Last Reviewed 04/06/18 @ 00:08 by Jourdan Alicia DO) 1. Acute pulmonary embolism 2. Recent NSTEMI 3. CAD status post PCI x2 4. Recent left-sided rib fracture secondary to fall 5. Hypertension 6. Hyperlipidemia 7. Recent GI bleed with hematemesis 8. Alcohol abuse 9. Tobacco abuse 10. Depression/Anxiety - Secondary Discharge Diagnosis Chronic Problems (Last Reviewed 04/06/18 @ 00:08 by Jourdan Alicia DO) CAD (coronary artery disease) (Chronic) HTN (hypertension) (Chronic) HLD (hyperlipidemia) (Chronic) Tobacco use (Chronic) Alcohol abuse (Chronic) Atherosclerosis of coronary artery of [place] heart with angina pectoris (Chronic) BMS-Prox and Distal RCA 12/23/16 History of coronary artery stent placement (Chronic 12/23/16) BMS-Prox and Distal RCA 12/23/16 Smoking addiction (Chronic) Anxiety (Chronic) Noncompliance (Chronic) Hospital Course and Treatment Imaging Results: Diagnostic Data Chest X-Ray 04/08/18 14:29 IMPRESSION: No active pulmonary disease. Electronically Signed: Rolando Matute MD at 15:06 EST Tel , Service support , Chest CTA 04/08/18 16:21 IMPRESSION: 1. Small right upper and lower lobe segmental pulmonary emboli. No evidence of right heart strain or saddle embolus. 2. Stable 4 mm right upper lobe noncalcified nodule. 3. Subacute, healed left posterior eighth rib fracture. 4. Mild centrilobular emphysema. Electronically Signed: Giuseppe Cohen MD at 17:34 EST , Service support , Operations: None Procedures: None Summary of Care Provided: The patient is a 52 year old M admitted 04/08/2018 due to chest pain. 1. Acute pulmonary embolism-chest CTA on admission showed small right upper and lower segmental pulmonary embolism. No evidence of right heart strain or saddle embolus. Stable 4 mm right upper lobe noncalcified nodule. Subacute, healed left posterior eighth rib fracture. Patient initially started on therapeutic Lovenox. Patient has frequent falls due to chronic alcoholism and reports he fell on the right side of his ribs 1-2 weeks ago. It is possible small PE is related to this trauma. Patient may benefit from outpatient echocardiogram which can be arranged by primary care physician. He may also benefit from hypercoagulable workup following completion of 6-month anticoagulation. He was initiated on Xarelto at discharge which he will take 15 mg twice daily for 21 days followed by Xarelto 20 mg p.o. daily. Oxygen stable on room air. Patient denies shortness of breath. Follow-up with primary care physician in 3-5 days. 2. Recent NSTEMI-continue aspirin, Plavix, statin, beta-luis. Patient follows with Dr. Monte. Patient underwent cardiac catheterization 04/07/18 which did not show obstructive coronary arteries. He will continue medical management. Patient has follow-up with cardiology 04/17/2018. 3. CAD status post PCI x2-follows with Dr. Monte. Continue aspirin, Plavix, statin, beta-luis. Upcoming appointments with cardiology 04/17/2018. It is possible that Plavix regimen may be discontinued given most recent stent was in 2017. Will defer this decision to cardiology. 4. Recent left-sided rib fracture secondary to fall (approximately 1 month ago) CT of chest 03/23/2018 showed subacute posterior left-sided eighth rib fracture. Patient states he fell and hurt his right ribs 1 week ago and was told he had a rib contusion. Patient repeatedly demonstrates drug-seeking behavior. 5. Hypertension-continue home metoprolol regimen. 6. Hyperlipidemia-continue statin regimen. 7. Recent GI bleed with hematemesis-[facility] consultation note in chart noted GI bleed suspected secondary to heavy NSAID use. Resolved with PPI and patient was scheduled for outpatient EGD. EGD reported to be normal and he has not received biopsy results yet. 8. Alcohol abuse- CIWA/ativan protocol. Alcohol level on admission 265. Strongly encouraged alcohol cessation. 9. Tobacco abuse-encourage smoking cessation. 10. Depression/Anxiety-continue home fluoxetine regimen. General: Alert, Oriented x3, Cooperative HEENT: Atraumatic, PERRLA, EOMI, Normocephalic Neck: Supple, No JVD, Negative Carotid Bruits Lungs: Clear to auscultation, Normal air movement Cardiovascular: Regular rate, Regular Rhythm, Normal S1, Normal S2, No murmurs Abdomen: Bowel Sounds Present, Soft, Non Tender, Non-Distended Extremities: No clubbing, No cyanosis, No edema, Capillary Refill Less than 3 Seconds Skin: No rashes, No breakdown Musculoskeletal: No Tenderness to Palpation of Joints or Extremities Neurological: Cranial nerves II-XII grossly intact, Neuro grossly intact Psych/Mental Status: Normal Affect, Appropriate Patient seen and examined prior to discharge. Physical assessment as noted above. Patient is stable for discharge with follow up recommendations as noted above. This patient was seen by BETH Vogel under the supervision of Dr. Sewell. - Physical Exam Vital Signs Temp Pulse Resp BP Pulse Ox 97.7 F L 110 H 16 128/83 H 96 04/09/18 09:50 04/09/18 10:50 04/09/18 09:50 04/09/18 09:50 04/09/18 09:50 Oxygen Delivery Method Room Air Weight: 171 lb 4.787 oz Body Mass Index (BMI) 21.4 Intake and Output for Last 24 Hours 04/07/18 04/08/18 04/09/18 23:59 23:59 23:59 Intake Total 891 / 891 1158 / 1158 Balance 891 / 891 1158 / 1158 Laboratory Tests Past 24 Hrs 04/08/18 04/08/18 04/08/18 14:24 14:24 14:24 WBC 7.9 RBC 3.65 L Hgb 12.5 L Hct 36.5 L MCV 100.0 H MCH 34.2 H MCHC 34.2 RDW 15.8 H RDW Differential 56.9 H Plt Count 220 MPV 9.5 Immature Gran % (Auto) 0.300 Neut % (Auto) 60.2 Lymph % (Auto) 26.6 [place] % (Auto) 8.2 Eos % (Auto) 4.4 Baso % (Auto) 0.3 Absolute Neuts (auto) 4.8 Absolute Lymphs (auto) 2.11 Total Counted Not Reportable D-Dimer Quant (PE/DVT) Sodium 131 L Potassium 4.3 Chloride 102 Carbon Dioxide 22.0 Anion Gap 7 BUN 4 L Creatinine 0.64 L Estim Creat Clear Calc 155.92 Est GFR (MDRD) Af Amer 169 Est GFR (MDRD) Non-Af 140 BUN/Creatinine Ratio 6.3 L Glucose 79 Calcium 7.9 L Phosphorus Magnesium Troponin I < 0.015 B-Natriuretic Peptide Ethyl Alcohol Cancelled 04/08/18 04/08/18 04/08/18 14:24 14:24 14:25 WBC RBC Hgb Hct MCV MCH MCHC RDW RDW Differential Plt Count MPV Immature Gran % (Auto) Neut % (Auto) Lymph % (Auto) [place] % (Auto) Eos % (Auto) Baso % (Auto) Absolute Neuts (auto) Absolute Lymphs (auto) Total Counted D-Dimer Quant (PE/DVT) 1.29 H* Sodium Potassium Chloride Carbon Dioxide Anion Gap BUN Creatinine Estim Creat Clear Calc Est GFR (MDRD) Af Amer Est GFR (MDRD) Non-Af BUN/Creatinine Ratio Glucose Calcium Phosphorus 3.8 Magnesium 2.0 Troponin I B-Natriuretic Peptide 73.4 Ethyl Alcohol 04/08/18 04/09/18 04/09/18 15:20 05:55 05:55 WBC 6.7 RBC 3.60 L Hgb 11.7 L Hct 36.1 L MCV 100.3 H MCH 32.5 H MCHC 32.4 RDW 16.5 H RDW Differential 60.8 H Plt Count 219 MPV 9.6 Immature Gran % (Auto) Neut % (Auto) Lymph % (Auto) [place] % (Auto) Eos % (Auto) Baso % (Auto) Absolute Neuts (auto) Absolute Lymphs (auto) Total Counted D-Dimer Quant (PE/DVT) Sodium 143 Potassium 4.6 Chloride 110 H Carbon Dioxide 26.0 Anion Gap 7 BUN 10 Creatinine 0.72 Estim Creat Clear Calc 131.90 Est GFR (MDRD) Af Amer 147 Est GFR (MDRD) Non-Af 121 BUN/Creatinine Ratio 13.9 Glucose 75 Calcium 7.9 L Phosphorus Magnesium Troponin I B-Natriuretic Peptide Ethyl Alcohol 265.0 Discharge Diet: Low fat/ Low Cholesterol Discharge Activity: Return to Normal Activity Home Medications: Medications to take at Discharge Aspirin [Aspirin, Baby] 81 mg PO DAILY@0800 10/03/17 clopidogrel 75 mg tablet 75 mg PO DAILY #90 tab 01/04/18 metoprolol succinate ER 25 mg tablet,extended release 24 hr 25 mg PO DAILY #90 tab 01/04/18 Atorvastatin Calcium [Lipitor] 80 mg PO DAILY 03/24/18 Fluoxetine HCl 20 mg PO DAILY 04/09/18 Hydroxyzine HCl 1 - 2 tab PO QHS 04/09/18 Oxycodone HCl/Acetaminophen [Oxycodone-Acetaminophen 5-325] 1 tab PO Q6H PRN PRN 04/09/18 Pantoprazole Sodium [Protonix] 40 mg PO DAILY 04/09/18 Rivaroxaban [Xarelto] 15 mg PO BID #42 tablet 04/09/18 Rivaroxaban [Xarelto] 20 mg PO DAILY #30 tablet 04/09/18 Following Prescrptions Were Given to Patient: Rivaroxaban [Xarelto] 20 mg PO DAILY #30 tablet Rivaroxaban [Xarelto] 15 mg PO BID #42 tablet Primary Care Physician: Kendell Lyons DO [Primary Care Provider] - Please follow up with your Primary Care Physician in: 3-5 Days Please Follow Up With: Saroj Hidalgo NP-C When: As scheduled 04/17/2018 Disposition: Home Minutes spent on discharge:: 35 Patient Condition:: Stable Medical Necessity - Tobacco Use Smoking Status: Current every day smoker Tobacco Use: Cigarettes Meaningful Use Info Meaningful Use Diagnoses (Choose all that apply): VTE - VTE Anticoag overlap given w/in hospital stay or rx'd at dc?: Yes Pt receive overlap for 5 days?: Yes <Bernardino Sewell - Last Filed: 04/09/18 17:56> Discharge Date and Diagnosis - Secondary Discharge Diagnosis Chronic Problems (Last Reviewed 04/06/18 @ 00:08 by Jourdan Alicia DO) CAD (coronary artery disease) (Chronic) HTN (hypertension) (Chronic) HLD (hyperlipidemia) (Chronic) Tobacco use (Chronic) Alcohol abuse (Chronic) Atherosclerosis of coronary artery of [place] heart with angina pectoris (Chronic) BMS-Prox and Distal RCA 12/23/16 History of coronary artery stent placement (Chronic 12/23/16) BMS-Prox and Distal RCA 12/23/16 Smoking addiction (Chronic) Anxiety (Chronic) Noncompliance (Chronic) Hospital Course and Treatment Summary of Care Provided: This patient was seen in conjunction with Mary HERNANDEZ. I have independently interviewed and examined the patient and reviewed pertinent history, examination findings, laboratory and plan of management. I have reviewed the note and agree with the documented findings with the few additional points. In brief, patient is admitted for left-sided chest pain for which CTPA was done showed right upper and lower small segmental pulmonary embolism. No evidence of right heart strain on CT scan. Patient was started on therapeutic Lovenox and was converted to Xarelto. Patient was advised to take Xarelto for about 6 months. Patient also had stent thrombosis in the past after 2 weeks of PCI after missing 1 dose although his history is not reliable. No first-degree family history of hypercoagulable disorder. Advised hypercoagulable workup after 3 weeks of completion of anticoagulant treatment. 2D echo advised as an outpatient. Troponin and BNP normal. Continue cardiac medications after recent non-STEMI and follow with systems security analyst. Alcohol level was 265 on admission. Alcohol cessation advised. I have discussed my assessment with TYPE PHOTOGRAPHY SUPERVISOR, Mary and orders have been reviewed. [] Discharge medication reconciliation done. Discharge follow-up instructions completed. Discharge process discussed with the patient and all questions were answered to patient's satisfaction.. Total time spent, exact 35 minutes on discharge meds reconciliation, examination, review of imaging and blood test and discussion with the patient on follow-up instructions. Subjective: Seen and examined. Patient vital signs are stable. Heart rate 62-78/min. Slight tachycardia in morning although patient seems comfortable. Patient was just admitted for recent non-STEMI for which he had a heart cath on April 07, 2018 which did not show obstructive coronary artery disease. Furthermore he said he fell from the ladder on his side and broke his 2 ribs on left side. He also had a muscle pull/her chest wall muscle on the right side. Patient also drinks heavily as his alcohol level was high last time. Does not have shortness of breath, chest pain now. - Physical Exam General: Alert, Oriented x3, Cooperative HEENT: Atraumatic, PERRLA, EOMI, Normocephalic Neck: Supple, No JVD, Negative Carotid Bruits Lungs: Clear to auscultation, Normal air movement, No rhonchi, No wheeze, No rales Cardiovascular: Regular rate, No murmurs, - - No significant tenderness of ribs or chest wall muscle. Abdomen: Bowel Sounds Present, Soft, Non Tender, Non-Distended Extremities: No edema, Capillary Refill Less than 3 Seconds Skin: No rashes, No breakdown Musculoskeletal: No Tenderness to Palpation of Joints or Extremities Neurological: Cranial nerves II-XII grossly intact Psych/Mental Status: Normal Affect, Appropriate Vital Signs Temp Pulse Resp BP Pulse Ox 97.7 F L 112 H 16 128/83 H 96 04/09/18 09:50 04/09/18 15:07 04/09/18 09:50 04/09/18 09:50 04/09/18 13:18 Oxygen Delivery Method Room Air Weight: 171 lb 4.787 oz Body Mass Index (BMI) 21.4 Intake and Output for Last 24 Hours 04/07/18 04/08/18 04/09/18 23:59 23:59 23:59 Intake Total 891 / 891 1158 / 1158 Balance 891 / 891 1158 / 1158 Laboratory Tests Past 24 Hrs 04/08/18 04/08/18 04/09/18 14:24 14:24 05:55 WBC 6.7 RBC 3.60 L Hgb 11.7 L Hct 36.1 L MCV 100.3 H MCH 32.5 H MCHC 32.4 RDW 16.5 H RDW Differential 60.8 H Plt Count 219 MPV 9.6 Sodium Potassium Chloride Carbon Dioxide Anion Gap BUN Creatinine Estim Creat Clear Calc Est GFR (MDRD) Af Amer Est GFR (MDRD) Non-Af BUN/Creatinine Ratio Glucose Calcium Phosphorus 3.8 Magnesium 2.0 B-Natriuretic Peptide 73.4 04/09/18 05:55 WBC RBC Hgb Hct MCV MCH MCHC RDW RDW Differential Plt Count MPV Sodium 143 Potassium 4.6 Chloride 110 H Carbon Dioxide 26.0 Anion Gap 7 BUN 10 Creatinine 0.72 Estim Creat Clear Calc 131.90 Est GFR (MDRD) Af Amer 147 Est GFR (MDRD) Non-Af 121 BUN/Creatinine Ratio 13.9 Glucose 75 Calcium 7.9 L Phosphorus Magnesium B-Natriuretic Peptide Code Visit Inpatient E&M: 20397 Disch Hosp
[2018-04-09] MEDS: Metoprolol(XL)Succ 25 MG Tablet PO (15:07)
== END 2018-04-09 15:29 | disposition home or self-care (01) | DRG 175 ==
LOC: ED 19:06 → PCU 19:28
PROVIDERS: Admitting Provider Family Medicine; Emergency Provider Emergency Medicine; Family Provider Family Medicine; PCP Family Medicine; Referring Provider Family Medicine; Visit Provider Internal Medicine
DX: I26.99 Other pulmonary embolism without acute cor pulmonale (principal); I21.4 Non-ST elevation (NSTEMI) myocardial infarction; I25.10 Atherosclerotic heart disease of native coronary artery without angina pectoris; F17.210 Nicotine dependence, cigarettes, uncomplicated; I10 Essential (primary) hypertension; E78.5 Hyperlipidemia, unspecified; J44.9 Chronic obstructive pulmonary disease, unspecified; F10.129 Alcohol abuse with intoxication, unspecified; Y90.8 Blood alcohol level of 240 mg/100 ml or more; F32.9 Major depressive disorder, single episode, unspecified; F41.9 Anxiety disorder, unspecified; S22.32XD Fracture of one rib, left side, subsequent encounter for fracture with routine healing; W19.XXXD Unspecified fall, subsequent encounter; I25.2 Old myocardial infarction; Z79.82 Long term (current) use of aspirin; Z87.19 Personal history of other diseases of the digestive system; Z95.5 Presence of coronary angioplasty implant and graft; Z79.02 Long term (current) use of antithrombotics/antiplatelets; Z79.899 Other long term (current) drug therapy; Z91.19 Patient's noncompliance with other medical treatment and regimen
CPT/HCPCS: 36415; 71045; 71275; 80048; 80320; 83735; 83880; 84100; 84484; 85025; 85027; 85379; 93005; 93970; 94640; 96361; 96372; 96374; 96375; 96376; 99218; 99283; 99406; J7030; Q9967; A4216; G0378; G0480; J2405

== ENCOUNTER 2018-04-10 18:11 | Emergency (ER) | payer BC, SELFPAY ==
[2017-01-12 13:36] VITALS: BMI 26.6
[2018-04-08 19:54] VITALS: BMI 21.4
[2018-04-10 18:12] VITALS: BP 120/70; PULSE 67; RESP 16; TEMP 37.2; O2SAT 99; BMI 21.9
--- NOTE | 2018-04-10 18:28 | ED.RN ---
PT STATES THAT HE HAD A BIGG DROP HIM OFF AND THAT HE WILL PICK HIM UP.
--- NOTE | 2018-04-10 18:30 | EKG12_ITS ---
Test Reason : SOB Blood Pressure : / mmHG Vent. Rate : 062 BPM Atrial Rate : 062 BPM P-R Int : 160 ms QRS Dur : 094 ms QT Int : 416 ms P-R-T Axes : 001 -04 033 degrees QTc Int : 422 ms Normal sinus rhythm Normal ECG Confirmed by ETIENNE BERRIOS ([id number]), sound editor ASHLEY SHIELDS ([id number]) on 04/14/2018 1:28:04 PM Referred By: GUSTAVO Confirmed By:ETIENNE BERRIOS
[2018-04-10] MEDS: 0.9% Normal Saline 1,000 ML 999 ML IV (18:54)
[2018-04-10] MEDS: Acetaminophen 500 MG Tablet 1000 MG PO (18:54)
--- NOTE | 2018-04-10 19:01 | RAD_ITS ---
STUDY: X-RAY CHEST REASON FOR EXAM: Male, 52 years old. Chest pain and shortness breath. Broken ribs. TECHNIQUE: Frontal and lateral views of the chest. COMPARISON: 04/08/2018. FINDINGS: There is hyperinflation of the lungs consistent with chronic obstructive lung disease (COPD). No infiltrates or effusions. There is no demonstrated pleural abnormality. Normal size heart. Normal mediastinum and stephen. Normal visualized pulmonary arteries. Normal visualized aortic arch and descending thoracic aorta. Normal visualized thoracic spine. Normal visualized ribs, clavicles, and shoulders. There is no demonstrated abnormality of the visualized soft tissue structures of the upper abdomen. RAD/Chest PA and Lateral IMPRESSION: There are findings consistent with COPD. There is no evidence of acute chest disease. Electronically Signed: Dat Loco MD at 19:18 EST , Service support ,
[2018-04-10 19:17] LABS: Absolute Lymphocyte Count 2.04 X10^3/ul (0.83-4.51); Basophil# 0.03 X10^3/uL; Basophil% 0.4 % (0-1); Eosinophils% 6.9 % (0-5); Hematocrit 37.4 % (40-54); Hemoglobin 12.4 g/dl (13.0-16.5); Lymphocyte # 2.04 X10^3/ul (4.0); Lymphocyte % 28.3 % (19-41); Mean Corp Hgb Conc 33.2 g/gl (32-36); Mean Corpuscular Hgb 32.9 pg (27.0-32.0); Mean Corpuscular Volume 99.2 fL (80-94); Mean Platelet Vol. 9.4 fl (6.2-12.0); Monocyte# 0.62 X10^3/uL; Monocyte% 8.6 % (0-10); Neutrophil # 3.97 X10^3/uL (2.7-7.7); Neutrophil % 55.2 % (47-70); Platelet Count 231 K/mm3 (150-450); RBC Distribution Width SD 58.3 fl (35.1-43.9); Red Blood Count 3.77 M/mm3 (4.6-6.2); White Blood Count 7.2 K/mm3 (4.4-11.0)
[2018-04-10 19:18] LABS: Anion Gap 8 (5-15); BUN 4 mg/dL (7-18); BUN/Creat Ratio 6.5 RATIO (10-20); Chloride 102 mmol/L (98-107); Creatinine, Serum 0.61 mg/dL (0.70-1.30); EST Glomerular Filtration Rate 146 mL/min (>60); Est Glom Filt Rate - Afr Amer 177 mL/min (>60); Estimated Creatinine Clearance 159.05 ml/min; Glucose 81 mg/dL (74-106); POSITIVE COUNT NO; POSITIVE DIFFERENTIAL NO; POSITIVE MORPHOLOGY NO; Potassium 4.4 mmol/L (3.5-5.1); Sodium Level 133 mmol/L (136-145)
--- NOTE | 2018-04-10 19:58 | ED.DCSUM_ITS ---
- ER Visit Summary Date of Service: 04/10/18 Chief Complaint: Chest pain and shortness of breath History of Present Illness: The patient is a [address] Lyons and Dr. Monte. He reports he has chest pain and shortness of breath began approximately 1 week ago. States the pain is on the lower right chest. Severe pain is worsened by coughing. His cough is nonproductive. He said chills, but no fever. Patient describes the chest pain as a sharp, throbbing pain that is 8 out of 10 at worst and 7-10 currently. Is worsened with rolling over in bed. He denies any recent trauma. No fall, MVA, or change in activity. Of note the patient was admitted to the hospital from April 05 - April 09. He had an extensive evaluation including a heart catheterization that was negative. He also had a CT of the chest that does show him to have pulmonary emboli. He was placed on Xarelto. He reports that he is taking this. Physical Examination: Vitals: Stable. Afebrile. General: Well-nourished and well-developed. Head: Normocephalic atraumatic. Neck: Supple, no lymphadenopathy. No JVD. Nontender. Cardiovascular: Regular rate and rhythm. No murmurs. Respiratory: No respiratory distress. Clear to auscultation bilaterally. Moderate tenderness palpation to the lower ribs on the right that does reproduce his pain. Abdominal: Soft, nontender, nondistended, normal bowel sounds. No guarding, rebound, or peritoneal signs. Back: Nontender. Extremities: Nontender, no edema. Skin: Normal color, no rash. Neurologic: Alert and oriented ?3. Cranial nerves II through XII are intact. Normal strength and sensation. Psych: Normal affect. Test Results: EKG is sinus at 62 and is unchanged from 2 days ago. Troponin is negative. Chem-7 is more for sodium 133, BUN 4, creatinine 0.61, calcium 8.0. CBC is marked for an H&H 12.3 and 37.4, eosinophils of 7. Chest x-ray shows chronic changes. Emergency Department Course and Treatment: I reviewed the patient's recent admission to the hospital. It is documented that he had narcotic seeking behavior while he was here. Clinically he does not appear uncomfortable here. He is also been drinking today. While he is not clinically intoxicated I do not think giving him opiate-based medications or prescription for these medications is in his best interest. He was given Tylenol in the emergency department. Treatment Plan: Patient left prior to getting discharge instructions. Disposition: Elopement Impression: 1. Chest pain. 2. Pulmonary embolus. 3. Coagulopathy on Xarelto. 4. Left prior to completion of treatment. This note was generated with [employer] dictation software. It may contain incorrect words, spelling, and punctuation that were not noted in review of the chart prior to signing ED Disposition - Plan for ED Patient: Disposition: Home or Assisted Living Instructions: Pulmonary Embolism Referrals: Kendell Lyons DO [Primary Care Provider] - 3-5 Days
== END 2018-04-10 20:15 | disposition home or self-care (01) ==
LOC: ED 18:51
PROVIDERS: Emergency Provider Emergency Medicine; Family Provider Family Medicine; PCP Family Medicine
DX: I26.99 Other pulmonary embolism without acute cor pulmonale (principal); R79.1 Abnormal coagulation profile; I25.10 Atherosclerotic heart disease of native coronary artery without angina pectoris; J02.9 Acute pharyngitis, unspecified; R51 Headache; F41.9 Anxiety disorder, unspecified; Z72.0 Tobacco use; Z79.01 Long term (current) use of anticoagulants; Z79.02 Long term (current) use of antithrombotics/antiplatelets; Z79.82 Long term (current) use of aspirin; Z79.899 Other long term (current) drug therapy; Z95.5 Presence of coronary angioplasty implant and graft
CPT/HCPCS: 71046; 80048; 84484; 85025; 93005; 96360; 99285; J7030; A4216

== ENCOUNTER 2018-04-10 22:57 | Emergency (ER) | payer BC, SELFPAY ==
[2017-01-12 13:36] VITALS: BMI 26.6
[2018-04-10 18:12] VITALS: BMI 21.9
[2018-04-10 22:58] VITALS: BP 114/60; PULSE 78; RESP 16; TEMP 36.3; O2SAT 98; BMI 23.1
--- NOTE | 2018-04-10 23:24 | ED.VISSUMM ---
- ER Visit Summary Date of Service: 04/10/18 Chief Complaint: Chest pain History of Present Illness: The patient is a [address] Lyons and Dr. Monte. Patient was seen in the emergency department and left prior to receiving the results of his x-ray and laboratory studies. He reports that he went home and took Tylenol for his chest pain without relief. Please see the prior dictation from this date for the details on his chest pain and prior workup. Physical Examination: Vitals: Stable. Afebrile. General: Well-nourished and well-developed. Head: Normocephalic atraumatic. Neck: Supple, no lymphadenopathy. No JVD. Nontender. Cardiovascular: Regular rate and rhythm. No murmurs. Respiratory: No respiratory distress. Clear to auscultation bilaterally. Moderate tenderness palpation over the lower ribs on the right. Abdominal: Soft, nontender, nondistended, normal bowel sounds. No guarding, rebound, or peritoneal signs. Back: Nontender. Extremities: Nontender, no edema. Skin: Normal color, no rash. Neurologic: Alert and oriented ?3. Cranial nerves II through XII are intact. Normal strength and sensation. Psych: Normal affect. Emergency Department Course and Treatment: I discussed the patient at this time with his frequent alcohol use that I will not give him opiate-based medications in the emergency department or prescribed them. Patient is very angry about this. Treatment Plan: The patient was instructed to use Tylenol for his pain. Follow-up with his primary care physician in 5 days if not improving. A voicemail was left for case management as I do not think that he is using the emergency department appropriately. Disposition: To home in improved and stable condition. Impression: 1. Chest pain. 2. Pulmonary embolus. 3. Coagulopathy on Xarelto. 4. Drug-seeking behavior. This note was generated with [employer] software. It may contain incorrect words, spelling, and punctuation that were not noted in review of the chart prior to signing ED Disposition - Plan for ED Patient: Disposition: Home or Assisted Living Instructions: Common Myths About Pain Medications Referrals: Kendell Lyons, DO [Primary Care Provider] - As Needed
== END 2018-04-10 23:30 | disposition home or self-care (01) ==
LOC: ED 23:33
PROVIDERS: Emergency Provider Emergency Medicine; Family Provider Family Medicine; PCP Family Medicine
DX: R07.9 Chest pain, unspecified (principal); I26.99 Other pulmonary embolism without acute cor pulmonale; R79.1 Abnormal coagulation profile; Z76.5 Malingerer [conscious simulation]; I25.10 Atherosclerotic heart disease of native coronary artery without angina pectoris; I10 Essential (primary) hypertension; R51 Headache; F41.9 Anxiety disorder, unspecified; Z72.0 Tobacco use; Z79.01 Long term (current) use of anticoagulants; Z79.02 Long term (current) use of antithrombotics/antiplatelets; Z79.82 Long term (current) use of aspirin; Z79.899 Other long term (current) drug therapy
CPT/HCPCS: 99282

== ENCOUNTER 2018-04-11 21:16 | Emergency (ER) | payer BC, SELFPAY ==
[2017-01-12 13:36] VITALS: BMI 26.6
[2018-04-10 22:58] VITALS: BMI 23.1
[2018-04-11 21:17] VITALS: BP 101/60; PULSE 88; RESP 16; TEMP 36.4; O2SAT 99; BMI 23.1
--- NOTE | 2018-04-11 21:43 | ED.DCSUM_ITS ---
- ER Visit Summary Date of Service: 04/11/18 Chief Complaint: [] Alcohol abuse requesting detox History of Present Illness: The patient is a 52 M [] history of alcohol abuse he has a recent history for apparently pulmonary embolism, history of CAD, on Xarelto, he is having no cardiovascular complaints, no chest pain abdominal pain numbness weakness paresthesias, indicates he has a long history of alcohol abuse has been drinking all afternoon and he presents for detox for alcohol. He has had no fever no cough no chest pain or shortness of breath, indicates he was detoxed by [facility] last month he did not follow-up with them he has no other complaints Physical Examination: [] 105/80 heart rate 80 pulse ox 98% General, no distress resting comfortably HEENT is generally unremarkable The neck is supple no adenopathy Cardiovascular, regular rate and rhythm Lungs, clear bilateral Abdomen, soft nontender Extremities, no clubbing cyanosis or edema Neurologic, awake alert answering questions appropriately moving all 4 extremities is no tremor there is no psychomotor agitation or hallucination he is awake and alert answering questions appropriate Test Results: [] Emergency Department Course and Treatment: [] Signs of alcohol withdrawal hallucinations or anything acute or life-threatening, I explained to the patient that he needs to contact [facility] related to alcohol detox options and follow their instructions and avoid noncompliance Treatment Plan: [] Disposition: [] Home stable Impression: [] Call abuse requesting detox This note was generated with [employer] dictation software. It may contain incorrect words, spelling, and punctuation that were not noted in review of the chart prior to signing ED Disposition - Plan for ED Patient: Instructions: ED Withdrawal Alcohol Referrals: Kendell Lyons DO [Primary Care Provider] - Additional Instructions: Follow-up with [facility] system tomorrow
--- NOTE | 2018-04-11 21:43 | ED.DEP ---
ED Disposition - Plan for ED Patient: Instructions: ED Withdrawal Alcohol Referrals: Kendell Lyons DO [Primary Care Provider] - Additional Instructions: Follow-up with [facility] tomorrow
== END 2018-04-11 22:02 | disposition home or self-care (01) ==
LOC: ED 21:48
PROVIDERS: Emergency Provider Emergency Medicine; Family Provider Family Medicine; PCP Family Medicine
DX: F10.20 Alcohol dependence, uncomplicated (principal); Z86.711 Personal history of pulmonary embolism; Z79.01 Long term (current) use of anticoagulants; I25.10 Atherosclerotic heart disease of native coronary artery without angina pectoris; Y90.9 Presence of alcohol in blood, level not specified
CPT/HCPCS: 99282

== ENCOUNTER 2018-04-12 09:56 | Inpatient (IN) | payer BC, SELFPAY ==
[2017-01-12 13:36] VITALS: BMI 26.6
[2018-04-11 21:17] VITALS: BMI 23.1
[2018-04-12] VITALS (7 sets, daily range): BP systolic 102–148; BP diastolic 56–78; PULSE 70–92; RESP 18; TEMP 36.6–36.8; O2SAT 96–99; BMI 22.5; BMI 21.9
--- NOTE | 2018-04-12 10:09 | NURSING ---
[facility] WITH PATIENT
--- NOTE | 2018-04-12 10:18 | ED.VISSUMM ---
- ER Visit Summary Date of Service: 04/12/18 Chief Complaint: Alcohol withdrawal History of Present Illness: The patient is a [address] Lyons and Dr. Monte. He reports that he drinks 4-8 beers 5 days a week. States his last drink was yesterday. He does not remember the time. He feels as though is going through with alcohol withdrawal and is already spoken with [facility]. Physical Examination: Vitals: Stable. Afebrile. General: Well-nourished and well-developed. Head: Normocephalic atraumatic. Neck: Supple, no lymphadenopathy. No JVD. Nontender. Cardiovascular: Regular rate and rhythm. No murmurs. Respiratory: No respiratory distress. Clear to auscultation bilaterally. Abdominal: Soft, nontender, nondistended, normal bowel sounds. No guarding, rebound, or peritoneal signs. Back: Nontender. Extremities: Nontender, no edema. Skin: Normal color, no rash. Neurologic: Alert and oriented ?3. Cranial nerves II through XII are intact. Normal strength and sensation. Psych: Normal affect. Test Results: CBC is normal. Chem-7 is more for calcium 8.3, BUN 5, creatinine 0.65. LFTs marked for an AST of 47. Blood alcohol level is 71. Emergency Department Course and Treatment: Patient's vital signs are stable. He was seen by nam whittaker in the emergency department and has a CIWA score of 20. Treatment Plan: Patient was discussed with Dr. Hill. He will be admitted to the hospital for further relation and treatment. Disposition: Admitted in stable condition. Impression: 1. Alcohol withdrawal. This note was generated with [employer] dictation software. It may contain incorrect words, spelling, and punctuation that were not noted in review of the chart prior to signing ED Disposition - Plan for ED Patient:
[2018-04-12 10:39] LABS: Absolute Lymphocyte Count 1.36 X10^3/ul (0.83-4.51); Absolute Neutrophil Count 4.4 X10^3/uL (2.0-7.7); Basophil# 0.03 X10^3/uL; Basophil% 0.4 % (0-1); Eosinophil# 0.35 X10^3/uL; Eosinophils% 5.2 % (0-5); Hematocrit 40.3 % (40-54); Hemoglobin 13.6 g/dl (13.0-16.5); Lymphocyte # 1.36 X10^3/ul (4.0); Lymphocyte % 20.3 % (19-41); Mean Corp Hgb Conc 33.7 g/gl (32-36); Mean Corpuscular Hgb 33.1 pg (27.0-32.0); Mean Corpuscular Volume 98.1 fL (80-94); Mean Platelet Vol. 9.1 fl (6.2-12.0); Monocyte# 0.58 X10^3/uL; Monocyte% 8.6 % (0-10); Neutrophil # 4.36 X10^3/uL (2.7-7.7); Neutrophil % 65.1 % (47-70); POSITIVE COUNT NO; POSITIVE DIFFERENTIAL NO; POSITIVE MORPHOLOGY NO; Platelet Count 220 K/mm3 (150-450); RBC Distribution Width CV 15.8 % (11.6-14.6); RBC Distribution Width SD 56.7 fl (35.1-43.9); Red Blood Count 4.11 M/mm3 (4.6-6.2); White Blood Count 6.7 K/mm3 (4.4-11.0)
--- NOTE | 2018-04-12 10:42 | NURSING ---
208 PAINTSIL ALCOHOL WITHDRAWAL
[2018-04-12 10:58] LABS: AST(SGOT) 47 U/L (15-37); Alanine Aminotransfer ALT/SGPT 41 U/L (16-61); Albumin, Serum 3.6 g/dL (3.2-5.0); Alkaline Phosphatase 80 U/L (45-117); Anion Gap 10 (5-15); BUN 5 mg/dL (7-18); BUN/Creat Ratio 7.7 RATIO (10-20); Bilirubin, Direct 0.17 mg/dL (0.00-0.30); Calcium,Total 8.3 mg/dL (8.5-10.1); Chloride 107 mmol/L (98-107); Creatinine, Serum 0.65 mg/dL (0.70-1.30); EST Glomerular Filtration Rate 138 mL/min (>60); Est Glom Filt Rate - Afr Amer 167 mL/min (>60); Estimated Creatinine Clearance 153.52 ml/min; Globulin 3.4 g/dL (2.2-4.2); Glucose 75 mg/dL (74-106); Potassium 4.5 mmol/L (3.5-5.1); Sodium Level 139 mmol/L (136-145)
[2018-04-12 12:11] LABS: Amphetamine Urine VISTA NEGATIVE (<1000 ng/mL); Barbiturate Urine VISTA NEGATIVE (< 200 ng/mL); Benzodiazepine Urine VISTA POSITIVE (< 200 ng/mL); Cocaine Urine VISTA NEGATIVE (< 300 ng/mL); Ecstacy Urine VISTA NEGATIVE (< 500 ng/mL); Methadone Urine VISTA NEGATIVE (< 300 ng/mL); PCP Urine VISTA NEGATIVE (< 25 ng/mL); THC Urine VISTA NEGATIVE (< 50 ng/mL); Vista UDS pH Range 6
[2018-04-12] MEDS: hydrOXYzine PAM 25 MG Capsule 50 MG PO ×2 (12:46→20:10)
--- NOTE | 2018-04-12 12:51 | HP.PCM_ITS ---
Problem List (1) Essential (primary) hypertension Status: Chronic (2) Nicotine dependence Status: Chronic Qualifiers: Nicotine product type: cigarettes (3) Acute pulmonary embolism Status: Acute Qualifiers: Pulmonary embolism type: unspecified Acute cor pulmonale presence: without acute cor pulmonale Qualified Code(s): I26.99 - Other pulmonary embolism without acute cor pulmonale (4) Acute, mixed level of activity, alcohol withdrawal delirium Status: Acute (5) HLD (hyperlipidemia) Status: Chronic Qualifiers: Hyperlipidemia type: unspecified Qualified Code(s): E78.5 - Hyperlipidemia, unspecified (6) Alcohol abuse Status: Chronic History of Present Illness Date of Admission: 04/12/18 Chief Complaint: Acute alcohol withdrawal The patient is a 52 year old M with multiple comorbidities, nicotine dependence, heavy alcohol use disorder, about 4-10 beers a day, recently admitted with non- STEMI status post cardiac catheterization who comes in with acute alcohol withdrawals symptoms for medical stabilization a [facility] protocol. Patient complains of tremors, feeling anxious, no nausea or vomiting. His last drink of alcohol was a day before admission. Denied ever being admitted to the ICU or intubated for delirium tremors. His vitals were T 98.2F, HR 90, BP 102/65, RR 18, Spo2 99% on room air. His admitting blood work was unremarkable Urine tox was positive for Benzo and his serum alsohol level was 71. Past Medical History Past Medical History (Chronic Problems): Chronic Problems (Last Updated 04/10/18 @ 11:33 by Raine Huber) Essential (primary) hypertension (Chronic) Nicotine dependence (Chronic) HLD (hyperlipidemia) (Chronic) Alcohol abuse (Chronic) Atherosclerosis of coronary artery of [place] heart with angina pectoris (Chronic) BMS-Prox and Distal RCA 12/23/16 History of coronary artery stent placement (Chronic 12/23/16) BMS-Prox and Distal RCA 12/23/16 Medical History: Medical History (Last Updated 04/10/18 @ 11:34 by Raine Huber) Essential (primary) hypertension (Chronic) I10 Nicotine dependence (Chronic) F17.200 Acute pulmonary embolism (Acute) Onset Date: 04/08/18 I26.99 Acute, mixed level of activity, alcohol withdrawal delirium (Acute) F10.231 HLD (hyperlipidemia) (Chronic) E78.5 Alcohol abuse (Chronic) F10.10 NSTEMI (non-ST elevated myocardial infarction) (Acute) Onset Date: 04/07/18 I21.4 Atherosclerosis of coronary artery of [place] heart with angina pectoris (Chronic) I25.119 BMS-Prox and Distal RCA 12/23/16 Anxiety F41.9 STEMI (ST elevation myocardial infarction) (Resolved) 12/23/16 STEMI (ST elevation myocardial infarction) I21.3 12/23/16 Noncompliance (Inactive) Z91.19 Allergies No Known Allergies Allergy (Verified 04/12/18 10:03) Home Medications: Ambulatory Orders Medication Instructions Recorded Aspirin [Aspirin, Baby] 81 mg PO DAILY@0800 10/03/17 clopidogrel 75 mg tablet 75 mg PO DAILY #90 tab 01/04/18 metoprolol succinate ER 25 mg 25 mg PO DAILY #90 tab 01/04/18 tablet,extended release 24 hr Atorvastatin Calcium [Lipitor] 20 mg PO DAILY 03/24/18 Fluoxetine HCl 20 mg PO DAILY 04/09/18 Hydroxyzine HCl 1 - 2 tab PO QHS 04/09/18 Pantoprazole Sodium [Protonix] 40 mg PO DAILY 04/09/18 Rivaroxaban [Xarelto] 15 mg PO BID #42 tablet 04/09/18 Rivaroxaban [Xarelto] 20 mg PO DAILY #30 tablet 04/09/18 Surgical History: Surgical History (Last Updated 04/10/18 @ 11:33 by Raine Huber) History of coronary artery stent placement (Chronic) Onset Date: 12/23/16 Z95.5 BMS-Prox and Distal RCA 12/23/16 History of left heart catheterization Onset Date: 04/07/18 Z98.890 12/23/16- PCI with BM stent to prox RCA & distal RCA; 01/12/17- patent BM stents; Surgical History: - - PCI x 2, T+A, L inguinal hernia repair. Psychiatric History: Anxiety, Depression Lives: Alone Smoking Status: Current every day smoker Tobacco Use: Cigarettes Alcohol: Heavy Drugs: None - *Family History Sibling Family History: Family History (Last Reviewed 04/06/18 @ 00:09 by Jourdan Alicia DO) Father Myocardial infarction, Onset Age: 36 Mother Myocardial infarction Cancer History Items: - - Patient notes a history of a sister who underwent a CABG early in life. Maternal Family History: Family History (Last Reviewed 04/06/18 @ 00:09 by Jourdan Alicia DO) Father Myocardial infarction, Onset Age: 36 Mother Myocardial infarction Cancer History Items: - - Patient notes a maternal family history of coronary disease with at least 6 stents during her lifetime. Paternal Family History: Family History (Last Reviewed 04/06/18 @ 00:09 by Jourdan Alicia DO) Father Myocardial infarction, Onset Age: 36 Mother Myocardial infarction Cancer History Items: - - Patient notes a paternal family history of heart disease, passing secondary to fatal AK at age 36. Review of Systems Constitutional: Reports: Anorexia, Weakness. Denies: Chills, Fever, Weight Change, Fatigue Eyes: Denies: Blurred vision, Cataracts, Conjunctivae Inflammation, Pain, Redness, Vision Change HEENT: Denies: Difficulty Hearing, Difficulty Swallowing, Head Aches, Hearing Changes, Sinus Congestion, Sinus Drainage Cardiovascular: Denies: Chest Pain, Claudication, Orthopnea, Palpitations Respiratory: Denies: Cough, Hemoptysis, Shortness of breath at rest, Shortness of breath upon exertion, Sputum production Gastrointestinal: Denies: Abdominal Pain, Hematemesis, Hematochezia, Nausea, Vomiting Genitourinary: Denies: Dysuria, Frequency, Incontinence Musculoskeletal: Denies: Joint Pain, Joint stiffness, Joint swelling, Joint Tenderness Skin: Denies: Rash, Wounds Neurological: Reports: Tremor. Denies: Focal weakness, Numbness, Tingling Psychiatric: Denies: Anxiety, Depression, Homicidal Ideations, Suicidal Ideations Hematologic/ Lymphatic: Denies: Easy Bruising, Easy Bleeding VTE Information - Inpt Only VTE Present on Admission: No - Recently diagnosed and treated - On Xarelto VTE Pharm Prophylaxis ordered?: Yes - Physical Exam General: Alert, Oriented x3, Cooperative, No apparent distress, - - appears anxious, tremulous HEENT: Atraumatic, PERRLA, EOMI, Normocephalic Oral: Dry Mucosa Neck: Supple Lungs: Clear to auscultation, Normal air movement Cardiovascular: Regular rate, Regular Rhythm, Normal S1, Normal S2, No murmurs Abdomen: Bowel Sounds Present, Soft, Non Tender, Non-Distended, No Hepato- splenomegaly Extremities: No edema Skin: No rashes, No breakdown Musculoskeletal: No Tenderness to Palpation of Joints or Extremities Lymphatic: No Cervical, Supraclavicular, or Inguinal Adenopathy Neurological: Cranial nerves II-XII grossly intact Psych/Mental Status: Normal Affect, Appropriate Vital Signs Temp Pulse Resp BP Pulse Ox 98.0 F 74 18 148/78 H 96 04/12/18 12:35 04/12/18 12:35 04/12/18 12:35 04/12/18 12:35 04/12/18 12:35 Oxygen Delivery Method Room Air Weight: 79.469 kg Body Mass Index (BMI) 21.9 Laboratory Tests Past 24 Hrs 04/12/18 04/12/18 04/12/18 10:30 10:30 10:30 WBC 6.7 RBC 4.11 L Hgb 13.6 Hct 40.3 MCV 98.1 H MCH 33.1 H MCHC 33.7 RDW 15.8 H RDW Differential 56.7 H Plt Count 220 MPV 9.1 Immature Gran % (Auto) 0.400 Neut % (Auto) 65.1 Lymph % (Auto) 20.3 [place] % (Auto) 8.6 Eos % (Auto) 5.2 H Baso % (Auto) 0.4 Absolute Neuts (auto) 4.4 Absolute Lymphs (auto) 1.36 Total Counted Not Reportable Sodium 139 Potassium 4.5 Chloride 107 Carbon Dioxide 22.0 Anion Gap 10 BUN 5 L Creatinine 0.65 L Estim Creat Clear Calc 153.52 Est GFR (MDRD) Af Amer 167 Est GFR (MDRD) Non-Af 138 BUN/Creatinine Ratio 7.7 L Glucose 75 Calcium 8.3 L Total Bilirubin 0.50 Direct Bilirubin 0.17 AST 47 H ALT 41 Alkaline Phosphatase 80 Total Protein 7.0 Albumin 3.6 Globulin 3.4 Urine Opiates Screen Urine Methadone Screen Ur Barbiturates Screen Ur Phencyclidine Scrn Ur Amphetamines Screen U Methamphetamin-MDMA U Benzodiazepines Scrn Urine Cocaine Screen U Cannabinoids Screen Ur Drug Screen Comment Ethyl Alcohol 71.0 04/12/18 11:50 WBC RBC Hgb Hct MCV MCH MCHC RDW RDW Differential Plt Count MPV Immature Gran % (Auto) Neut % (Auto) Lymph % (Auto) [place] % (Auto) Eos % (Auto) Baso % (Auto) Absolute Neuts (auto) Absolute Lymphs (auto) Total Counted Sodium Potassium Chloride Carbon Dioxide Anion Gap BUN Creatinine Estim Creat Clear Calc Est GFR (MDRD) Af Amer Est GFR (MDRD) Non-Af BUN/Creatinine Ratio Glucose Calcium Total Bilirubin Direct Bilirubin AST ALT Alkaline Phosphatase Total Protein Albumin Globulin Urine Opiates Screen NEGATIVE Urine Methadone Screen NEGATIVE Ur Barbiturates Screen NEGATIVE Ur Phencyclidine Scrn NEGATIVE Ur Amphetamines Screen NEGATIVE U Methamphetamin-MDMA NEGATIVE U Benzodiazepines Scrn POSITIVE H Urine Cocaine Screen NEGATIVE U Cannabinoids Screen NEGATIVE Ur Drug Screen Comment Ethyl Alcohol Assessment/Plan All Active Problems (Last Updated 04/10/18 @ 11:34 by Raine Huber) Acute pulmonary embolism (Acute 04/08/18) Acute, mixed level of activity, alcohol withdrawal delirium (Acute) NSTEMI (non-ST elevated myocardial infarction) (Acute 04/07/18) Chest pain (Resolved) Intermittent palpitations (Resolved) STEMI (ST elevation myocardial infarction) (Resolved) 52 year old M with multiple comorbidities, nicotine dependence, heavy alcohol use disorder, about 4-10 beers a day, recently admitted with non-STEMI status post cardiac catheterization who comes in with acute alcohol withdrawals symptoms for medical stabilization a [facility] protocol. 1. Acute alcohol withdrawal, stable vitals, currently being admitted for medical stabilization under the [facility] protocol, will follow per protocol, will use Ativan taper with monitoring of CIWA scores 2. Recent acute PE, on Xarelto, continue the same 3. CAD status post recent PCI, on aspirin, statin, Plavix, prolonged 4. Hypertension, controlled, on metoprolol, continue to monitor 5. Hyperlipidemia, on statins 6. Anxiety/depression on Prozac 7. Nicotine dependence, will put on replacement 8. DVT PPx- On Xarelto for recent DVT Code Visit Inpatient E&M: 03862 Init Hosp L2
[2018-04-12] MEDS: Acetaminophen 500 MG Tablet 1000 MG PO ×2 (14:02→21:58)
[2018-04-12] MEDS: Methocarbamol 750 MG Tablet PO (14:03)
[2018-04-12] MEDS: LORazepam 1 MG Tablet PO ×3 (14:03→21:57)
[2018-04-12] MEDS: Dicyclomine 10 MG Capsule 20 MG PO (17:40)
[2018-04-12] MEDS: Rivaroxaban 15 MG Tablet PO (21:57)
[2018-04-12] MEDS: Atorvastatin Calcium 20 MG Tablet PO (21:58)
[2018-04-12] MEDS: MELATONIN 3 MG TABLET PO (22:00)
[2018-04-13] VITALS (14 sets, daily range): BP systolic 108–132; BP diastolic 72–94; PULSE 65–86; RESP 18; TEMP 36.6–36.8; O2SAT 97
[2018-04-13] MEDS: LORazepam 1 MG Tablet PO ×5 (02:20→21:34)
[2018-04-13] MEDS: Acetaminophen 500 MG Tablet 1000 MG PO ×3 (06:16→21:34)
--- NOTE | 2018-04-13 07:54 | PCM.PN.HOSP ---
Subjective: Patient was seen and examined. He feels much improved. Less tremors. No acute events overnight. Objective: Physical Exam General: Alert, Oriented x3, Cooperative, No apparent distress HEENT: Atraumatic, PERRLA, EOMI, Normocephalic Oral: Dry Mucosa Neck: Supple Lungs: Clear to auscultation, Normal air movement Cardiovascular: Regular rate, Regular Rhythm, Normal S1, Normal S2, No murmurs Abdomen: Bowel Sounds Present, Soft, Non Tender, Non-Distended, No Hepato-splenomegaly Extremities: No edema Skin: No rashes, No breakdown Musculoskeletal: No Tenderness to Palpation of Joints or Extremities Lymphatic: No Cervical, Supraclavicular, or Inguinal Adenopathy Neurological: Cranial nerves II-XII grossly intact Psych/Mental Status: Normal Affect, Appropriate Vitals/I&O's: Vital Signs Temp Pulse Resp BP Pulse Ox 98.2 F 77 18 128/90 H 96 04/13/18 06:13 04/13/18 06:13 04/13/18 06:13 04/13/18 06:13 04/12/18 21:54 Oxygen Delivery Method Room Air Weight: 79.469 kg Body Mass Index (BMI) 21.9 Intake and Output for Last 24 Hours 04/11/18 04/12/18 04/13/18 23:59 23:59 23:59 Intake Total 450 / 450 600 / 600 Balance 450 / 450 600 / 600 Laboratory Results 04/12/18 10:30: WBC 6.7, RBC 4.11 L, Hgb 13.6, Hct 40.3, MCV 98.1 H, MCH 33.1 H, MCHC 33.7, RDW 15.8 H, RDW Differential 56.7 H, Plt Count 220, MPV 9.1, Immature Gran % (Auto) 0.400, Neut % (Auto) 65.1, Lymph % (Auto) 20.3, [place] % (Auto) 8.6, Eos % (Auto) 5.2 H, Baso % (Auto) 0.4, Absolute Neuts (auto) 4.4, Absolute Lymphs (auto) 1.36, Total Counted Not Reportable 04/12/18 10:30: Sodium 139, Potassium 4.5, Chloride 107, Carbon Dioxide 22.0, Anion Gap 10, BUN 5 L, Creatinine 0.65 L, Estim Creat Clear Calc 153.52, Est GFR (MDRD) Af Amer 167, Est GFR (MDRD) Non-Af 138, BUN/Creatinine Ratio 7.7 L, Glucose 75, Calcium 8.3 L, Total Bilirubin 0.50, Direct Bilirubin 0.17, AST 47 H, ALT 41, Alkaline Phosphatase 80, Total Protein 7.0, Albumin 3.6, Globulin 3.4 04/12/18 10:30: Ethyl Alcohol 71.0 04/12/18 11:50: Urine Opiates Screen NEGATIVE, Urine Methadone Screen NEGATIVE, Ur Barbiturates Screen NEGATIVE, Ur Phencyclidine Scrn NEGATIVE, Ur Amphetamines Screen NEGATIVE, U Methamphetamin-MDMA NEGATIVE, U Benzodiazepines Scrn POSITIVE H, Urine Cocaine Screen NEGATIVE, U Cannabinoids Screen NEGATIVE, Ur Drug Screen Comment Current Medications Acetaminophen (Tylenol) 1,000 mg PO TID [facility] Last Admin: 04/13/18 06:16 Dose: 1,000 mg Aspirin (Aspirin, Baby) 81 mg PO DAILY@0800 [facility] Atorvastatin Calcium (Lipitor) 20 mg PO QHS [facility] Last Admin: 04/12/18 21:58 Dose: 20 mg Clopidogrel Bisulfate (Plavix) 75 mg PO DAILY [facility] Dicyclomine HCl (Bentyl) 20 mg PO Q6H PRN PRN PRN Reason: abdominal discomfort Last Admin: 04/12/18 17:40 Dose: 20 mg Fluoxetine HCl (Prozac) 20 mg PO DAILY [facility] Folic Acid (Folic Acid) [facility] Hydroxyzine Pamoate (Vistaril Pamoate Capsule) 50 mg PO Q6H PRN PRN PRN Reason: Mild Anxiety (score 1/3) Last Admin: 04/12/18 20:10 Dose: 50 mg Lorazepam (Ativan) 1 mg PO Q4H [facility]; Taper Stop: 04/15/18 17:59 Last Admin: 04/13/18 06:16 Dose: 1 mg Magnesium Hydroxide (Milk Of Magnesia) 30 ml PO DAILY PRN PRN PRN Reason: Constipation Melatonin (Melatonin) 3 mg PO QHS [facility] Last Admin: 04/12/18 22:00 Dose: 3 mg Menthol (Bengay Vanishing Scent) 1 applic TOPICAL TID PRN PRN PRN Reason: back Methocarbamol (Methocarbamol) 750 mg PO Q6H PRN PRN PRN Reason: Muscle Aches Last Admin: 04/12/18 14:03 Dose: 750 mg Metoprolol Succinate (Toprol Xl (Beta Levon)) 25 mg PO DAILY [facility] Multivitamins (Multivitamin) 1 tablet PO [facility] Nicotine (Nicoderm Cq (Pbkc)) 21 mg TRANSDERM. DAILY [facility] Last Admin: 04/12/18 17:41 Dose: 21 mg Nicotine Polacrilex (Rugby Nicotine (Bkc)) 2 mg PO Q2H PRN PRN PRN Reason: Nicotine Craving Pantoprazole Sodium (Protonix) 40 mg PO DAILY [facility] Psyllium Hydrophilic Mucilloid (Metamucil) 1 packet PO DAILY PRN PRN PRN Reason: CONSTIPATION Rivaroxaban (Xarelto) 15 mg [facility] Stop: 04/29/18 22:01 Last Admin: 04/12/18 21:57 Dose: 15 mg Rivaroxaban (Xarelto) 20 mg PO DAILY@1700 [facility] Sodium Chloride () 5 - 15 ml IV UD PRN PRN Reason: SALINE FLUSH Thiamine HCl (Vitamin B1) 100 mg [facility] Medical Necessity - Tobacco Use Smoking Status: Current every day smoker Tobacco Use: Cigarettes Assessment/Plan All Active Problems (Last Updated 04/10/18 @ 11:34 by Raine Huber) Acute pulmonary embolism (Acute 04/08/18) Acute, mixed level of activity, alcohol withdrawal delirium (Acute) NSTEMI (non-ST elevated myocardial infarction) (Acute 04/07/18) Chest pain (Resolved) Intermittent palpitations (Resolved) STEMI (ST elevation myocardial infarction) (Resolved) 52 year old M with multiple comorbidities, nicotine dependence, heavy alcohol use disorder, about 4-10 beers a day, recently admitted with non-STEMI status post cardiac catheterization who comes in with acute alcohol withdrawals symptoms for medical stabilization a [facility] protocol. 1. Acute alcohol withdrawal, improving, CIWA scores improved from 20 on admission to 9. will continue on [facility] protocol. 2. Recent acute PE, on Xarelto, continue the same 3. CAD status post recent PCI, on aspirin, statin, Plavix, prolonged 4. Hypertension, controlled, on metoprolol, continue to monitor 5. Hyperlipidemia, on statins 6. Anxiety/depression on Prozac 7. Nicotine dependence, will put on replacement 8. DVT PPx- On Xarelto for recent DVT Code Visit Inpatient E&M: 03204 Subs Hosp L2
[2018-04-13] MEDS: Metoprolol(XL)Succ 25 MG Tablet PO (09:10)
[2018-04-13] MEDS: FLUoxetine 20 MG Capsule PO (09:10)
[2018-04-13] MEDS: Folic Acid 1 MG Tablet PO (09:10)
[2018-04-13] MEDS: Thiamine Hydrochloride 100 MG Tablet PO (09:10)
[2018-04-13] MEDS: Multivitamins,Therapeutic Tablet 1 TABLET PO (09:10)
[2018-04-13] MEDS: Aspirin 81 MG TAB.CHEW PO (09:11)
[2018-04-13] MEDS: Clopidogrel Bisulfate 75 MG Tablet PO (09:12)
[2018-04-13] MEDS: Rivaroxaban 15 MG Tablet PO ×2 (09:12→16:41)
[2018-04-13] MEDS: Pantoprazole Sodium 40 MG Tablet PO (09:13)
--- NOTE | 2018-04-13 11:39 | [facility] ---
Patient will attend individual counseling sessions with Gladys. His appointment is 04-19-2018 at 2:00pm.
[2018-04-13] MEDS: Dicyclomine 10 MG Capsule 20 MG PO (14:00)
[2018-04-13] MEDS: hydrOXYzine PAM 25 MG Capsule 50 MG PO ×2 (14:00→23:49)
[2018-04-13] MEDS: Methocarbamol 750 MG Tablet PO (14:00)
[2018-04-13] MEDS: MELATONIN 3 MG TABLET PO (21:34)
[2018-04-13] MEDS: Atorvastatin Calcium 20 MG Tablet PO (21:34)
[2018-04-14] VITALS (11 sets, daily range): BP systolic 97–134; BP diastolic 66–87; PULSE 56–88; RESP 16–18; TEMP 36.4–36.8; O2SAT 98
[2018-04-14] MEDS: LORazepam 1 MG Tablet PO ×3 (03:08→18:08)
[2018-04-14] MEDS: Acetaminophen 500 MG Tablet 1000 MG PO ×3 (06:30→21:14)
[2018-04-14] MEDS: Folic Acid 1 MG Tablet PO (08:33)
[2018-04-14] MEDS: Pantoprazole Sodium 40 MG Tablet PO (08:33)
[2018-04-14] MEDS: Rivaroxaban 15 MG Tablet PO ×2 (08:33→18:08)
[2018-04-14] MEDS: FLUoxetine 20 MG Capsule PO (08:33)
[2018-04-14] MEDS: Metoprolol(XL)Succ 25 MG Tablet PO (08:33)
[2018-04-14] MEDS: Multivitamins,Therapeutic Tablet 1 TABLET PO (08:34)
[2018-04-14] MEDS: Aspirin 81 MG TAB.CHEW PO (08:34)
[2018-04-14] MEDS: Thiamine Hydrochloride 100 MG Tablet PO (08:34)
[2018-04-14] MEDS: Clopidogrel Bisulfate 75 MG Tablet PO (09:03)
[2018-04-14] MEDS: hydrOXYzine PAM 25 MG Capsule 50 MG PO ×2 (13:33→20:43)
--- NOTE | 2018-04-14 14:51 | PCM.PN.HOSP ---
Subjective: Patient was seen and examined. He feels well. No acute events overnight. Objective: Physical Exam General: Alert, Oriented x3, Cooperative, No apparent distress HEENT: Atraumatic, PERRLA, EOMI, Normocephalic Oral: Dry Mucosa Neck: Supple Lungs: Clear to auscultation, Normal air movement Cardiovascular: Regular rate, Regular Rhythm, Normal S1, Normal S2, No murmurs Abdomen: Bowel Sounds Present, Soft, Non Tender, Non-Distended, No Hepato-splenomegaly Extremities: No edema Skin: No rashes, No breakdown Musculoskeletal: No Tenderness to Palpation of Joints or Extremities Lymphatic: No Cervical, Supraclavicular, or Inguinal Adenopathy Neurological: Cranial nerves II-XII grossly intact Psych/Mental Status: Normal Affect, Appropriate Vitals/I&O's: Vital Signs Temp Pulse Resp BP Pulse Ox 97.8 F 86 18 119/87 H 98 04/14/18 08:30 04/14/18 09:13 04/14/18 09:21 04/14/18 08:30 04/14/18 08:30 Oxygen Delivery Method Room Air Weight: 79.469 kg Body Mass Index (BMI) 21.9 Intake and Output for Last 24 Hours 04/12/18 04/13/18 04/14/18 23:59 23:59 23:59 Intake Total 450 / 450 1680 / 1680 960 / 960 Balance 450 / 450 1680 / 1680 960 / 960 Current Medications Acetaminophen (Tylenol) 1,000 mg PO TID [facility] Last Admin: 04/14/18 06:30 Dose: 1,000 mg Aspirin (Aspirin, Baby) 81 mg PO DAILY@0800 [facility] Last Admin: 04/14/18 08:34 Dose: 81 mg Atorvastatin Calcium (Lipitor) 20 mg PO QHS [facility] Last Admin: 04/13/18 21:34 Dose: 20 mg Clopidogrel Bisulfate (Plavix) 75 mg PO DAILY [facility] Last Admin: 04/14/18 09:03 Dose: 75 mg Dicyclomine HCl (Bentyl) 20 mg PO Q6H PRN PRN PRN Reason: abdominal discomfort Last Admin: 04/13/18 14:00 Dose: 20 mg Fluoxetine HCl (Prozac) 20 mg PO DAILY [facility] Last Admin: 04/14/18 08:33 Dose: 20 mg Folic Acid (Folic Acid) [facility] Last Admin: 04/14/18 08:33 Dose: 1 mg Hydroxyzine Pamoate (Vistaril Pamoate Capsule) 50 mg PO Q6H PRN PRN PRN Reason: Mild Anxiety (score 1/3) Last Admin: 04/14/18 13:33 Dose: 50 mg Lorazepam (Ativan) 1 mg PO Q8H [facility]; Taper Stop: 04/15/18 17:59 Last Admin: 04/14/18 09:03 Dose: 1 mg Magnesium Hydroxide (Milk Of Magnesia) 30 ml PO DAILY PRN PRN PRN Reason: Constipation Melatonin (Melatonin) 3 mg PO QHS [facility] Last Admin: 04/13/18 21:34 Dose: 3 mg Menthol (Bengay Vanishing Scent) 1 applic TOPICAL TID PRN PRN PRN Reason: back Methocarbamol (Methocarbamol) 750 mg PO Q6H PRN PRN PRN Reason: Muscle Aches Last Admin: 04/13/18 14:00 Dose: 750 mg Metoprolol Succinate (Toprol Xl (Beta Levon)) 25 mg PO DAILY [facility] Last Admin: 04/14/18 08:33 Dose: 25 mg Multivitamins (Multivitamin) 1 tablet [facility]IL[facility] Last Admin: 04/14/18 08:34 Dose: 1 tablet Nicotine (Nicoderm Cq (Pbkc)) 21 mg TRANSDERM. DAILY [facility] Last Admin: 04/14/18 09:03 Dose: 21 mg Nicotine Polacrilex (Rugby Nicotine (Bkc)) 2 mg PO Q2H PRN PRN PRN Reason: Nicotine Craving Pantoprazole Sodium (Protonix) 40 mg PO DAILY [facility] Last Admin: 04/14/18 08:33 Dose: 40 mg Psyllium Hydrophilic Mucilloid (Metamucil) 1 packet PO DAILY PRN PRN PRN Reason: CONSTIPATION Rivaroxaban (Xarelto) 15 [facility]ID[facility] Stop: 04/29/18 22:01 Last Admin: 04/14/18 08:33 Dose: 15 mg Rivaroxaban (Xarelto) 20 mg PO DAILY@1700 [facility] Sodium Chloride () 5 - 15 ml IV UD PRN PRN Reason: SALINE FLUSH Thiamine HCl (Vitamin B1) 100 mg PO [facility]ILYR[facility] Last Admin: 04/14/18 08:34 Dose: 100 mg Medical Necessity - Tobacco Use Smoking Status: Current every day smoker Tobacco Use: Cigarettes Assessment/Plan All Active Problems (Last Updated 04/10/18 @ 11:34 by Raine Huber) Acute pulmonary embolism (Acute 04/08/18) Acute, mixed level of activity, alcohol withdrawal delirium (Acute) NSTEMI (non-ST elevated myocardial infarction) (Acute 04/07/18) Chest pain (Resolved) Intermittent palpitations (Resolved) STEMI (ST elevation myocardial infarction) (Resolved) 52 year old M with multiple comorbidities, nicotine dependence, heavy alcohol use disorder, about 4-10 beers a day, recently admitted with non-STEMI status post cardiac catheterization who comes in with acute alcohol withdrawals symptoms for medical stabilization a [facility] protocol. 1. Acute alcohol withdrawal, improving, CIWA improving, 6 today, will continue on [facility] protocol. 2. Recent acute PE, on Xarelto 3. CAD status post recent PCI, on aspirin, statin, Plavix, metoprolol 4. Hypertension, controlled, on metoprolol, continue to monitor 5. Hyperlipidemia, on statins 6. Anxiety/depression on Prozac 7. Nicotine dependence, on replacement 8. DVT PPx- On Xarelto for recent DVT Code Visit Inpatient E&M: 42791 Subs Hosp L2
[2018-04-14] MEDS: Atorvastatin Calcium 20 MG Tablet PO (21:14)
[2018-04-14] MEDS: MELATONIN 3 MG TABLET PO (21:14)
[2018-04-15 02:06] VITALS: BP 123/78; PULSE 60; RESP 18; TEMP 36.3
[2018-04-15] MEDS: LORazepam 1 MG Tablet PO (02:10)
[2018-04-15] MEDS: Acetaminophen 500 MG Tablet 1000 MG PO (06:16)
--- NOTE | 2018-04-15 07:17 | PCM.DC ---
- Discharge Diagnoses Reason(s) for Visit for Discharge Instructions: Acute alcohol withdrawal You will use the following diet at home:: Cardiac Your food should be the consistency of: Regular Your liquids should be the consistency of: Regular/Thin Discharge Activity: Return to Normal Activity Additional Instructions: Follow-up with your primary care doctor and export packer as previously scheduled. You are strongly advised to quit drinking alcohol Allergies/Adverse Reactions: Allergies No Known Allergies Allergy (Verified 04/12/18 10:03) Medications to take at Discharge Aspirin [Aspirin, Baby] 81 mg PO DAILY@0800 10/03/17 clopidogrel 75 mg tablet 75 mg PO DAILY #90 tab 01/04/18 metoprolol succinate ER 25 mg tablet,extended release 24 hr 25 mg PO DAILY #90 tab 01/04/18 Atorvastatin Calcium [Lipitor] 20 mg PO DAILY 03/24/18 Fluoxetine HCl 20 mg PO DAILY 04/09/18 Hydroxyzine HCl 1 - 2 tab PO QHS 04/09/18 Pantoprazole Sodium [Protonix] 40 mg PO DAILY 04/09/18 Rivaroxaban [Xarelto] 15 mg PO BID #42 tablet 04/09/18 Rivaroxaban [Xarelto] 20 mg PO DAILY #30 tablet 04/09/18 Acetaminophen [Tylenol] 1,000 mg PO TID PRN tablet 04/15/18 Folic Acid 1 mg PO DAILYCM #30 tablet 04/15/18 Nicotine [Nicoderm Cq] 21 mg TRANSDERM. DAILY #30 patch 04/15/18 Thiamine Hydrochloride [Vitamin B1] 100 mg PO DAILYCM #30 tablet 04/15/18 The following prescriptions were given: Folic Acid 1 mg PO DAILYCM #30 tablet Nicotine [Nicoderm Cq] 21 mg TRANSDERM. DAILY #30 patch Thiamine Hydrochloride [Vitamin B1] 100 mg PO DAILYCM #30 tablet Primary Care Physician: Kendell Lyons DO [Primary Care Provider] - Please follow up with your Primary Care Physician in: within 1-2 weeks Test Results: Test results from this visit will be discussed in further detail at your follow-up appointment, if applicable. Proposed Discharge Date: 04/15/18
--- NOTE | 2018-04-15 07:19 | DS.PCM_ITS ---
Discharge Date and Diagnosis Date of Admission: 04/12/18 Date of Discharge: 04/15/18 - Primary Discharge Diagnosis Acute alcohol withdrawal Nicotine dependence - Secondary Discharge Diagnosis Chronic Problems (Last Updated 04/10/18 @ 11:33 by Raine Huber) Essential (primary) hypertension (Chronic) Nicotine dependence (Chronic) HLD (hyperlipidemia) (Chronic) Alcohol abuse (Chronic) Atherosclerosis of coronary artery of [place] heart with angina pectoris (Chronic) BMS-Prox and Distal RCA 12/23/16 History of coronary artery stent placement (Chronic 12/23/16) BMS-Prox and Distal RCA 12/23/16 Hospital Course and Treatment None Operations: None Procedures: None Summary of Care Provided: 52 year old M with multiple comorbidities, nicotine dependence, heavy alcohol use disorder, about 4-10 beers a day, recently admitted with non-STEMI status post cardiac catheterization who comes in with acute alcohol withdrawals symptoms for medical stabilization a [facility] protocol. It was admitted to the floor, monitored on the CIWA protocol with Ativan. Patient had no events during his hospital stay. Completed the protocol. He was advised to follow-up with all his previous appointments as scheduled. He was also advised to quit smoking. Subjective: On the day of discharge, patient had no complaints. Had minimal tremors in the hand. Denies any chest pain or dizziness. Objective: Physical Exam General: Alert, Oriented x3, Cooperative, No apparent distress HEENT: Atraumatic, PERRLA, EOMI, Normocephalic Oral: Dry Mucosa Neck: Supple Lungs: Clear to auscultation, Normal air movement Cardiovascular: Regular rate, Regular Rhythm, Normal S1, Normal S2, No murmurs Abdomen: Bowel Sounds Present, Soft, Non Tender, Non-Distended, No Hepato- splenomegaly Extremities: No edema Skin: No rashes, No breakdown Musculoskeletal: No Tenderness to Palpation of Joints or Extremities Lymphatic: No Cervical, Supraclavicular, or Inguinal Adenopathy Neurological: Cranial nerves II-XII grossly intact Psych/Mental Status: Normal Affect, Appropriate - Physical Exam Vital Signs Temp Pulse Resp BP Pulse Ox 97.4 F L 60 18 123/78 H 98 04/15/18 02:06 04/15/18 02:06 04/15/18 02:06 04/15/18 02:06 04/14/18 18:05 Oxygen Delivery Method Room Air Weight: 79.469 kg Body Mass Index (BMI) 21.9 Intake and Output for Last 24 Hours 04/13/18 04/14/18 04/15/18 23:59 23:59 23:59 Intake Total 1680 / 1680 1760 / 1760 780 / 780 Balance 1680 / 1680 1760 / 1760 780 / 780 Discharge Diet: Low fat/ Low Cholesterol, 2000 mg Sodium Diet Discharge Activity: Return to Normal Activity Home Medications: Medications to take at Discharge Aspirin [Aspirin, Baby] 81 mg PO DAILY@0800 10/03/17 clopidogrel 75 mg tablet 75 mg PO DAILY #90 tab 01/04/18 metoprolol succinate ER 25 mg tablet,extended release 24 hr 25 mg PO DAILY #90 tab 01/04/18 Atorvastatin Calcium [Lipitor] 20 mg PO DAILY 03/24/18 Fluoxetine HCl 20 mg PO DAILY 04/09/18 Hydroxyzine HCl 1 - 2 tab PO QHS 04/09/18 Pantoprazole Sodium [Protonix] 40 mg PO DAILY 04/09/18 Rivaroxaban [Xarelto] 15 mg PO BID #42 tablet 04/09/18 Rivaroxaban [Xarelto] 20 mg PO DAILY #30 tablet 04/09/18 Acetaminophen [Tylenol] 1,000 mg PO TID PRN tablet 04/15/18 Folic Acid 1 mg PO DAILYCM #30 tablet 04/15/18 Nicotine [Nicoderm Cq] 21 mg TRANSDERM. DAILY #30 patch 04/15/18 Thiamine Hydrochloride [Vitamin B1] 100 mg PO DAILYCM #30 tablet 04/15/18 Following Prescrptions Were Given to Patient: Folic Acid 1 mg PO DAILYCM #30 tablet Nicotine [Nicoderm Cq] 21 mg TRANSDERM. DAILY #30 patch Thiamine Hydrochloride [Vitamin B1] 100 mg PO DAILYCM #30 tablet Primary Care Physician: Kendell Lyons DO [Primary Care Provider] - Please follow up with your Primary Care Physician in: within 1-2 weeks Disposition: Home Minutes spent on discharge:: 25 Patient Condition:: Stable Medical Necessity - Tobacco Use Smoking Status: Current every day smoker Tobacco Use: Cigarettes Meaningful Use Info Meaningful Use Diagnoses (Choose all that apply): None applicable Code Visit Inpatient E&M: 29447 Disch Hosp
[2018-04-15 07:28] VITALS: BP 136/82; PULSE 71; RESP 14; TEMP 36.9
[2018-04-15] MEDS: Folic Acid 1 MG Tablet PO (07:31)
[2018-04-15] MEDS: Aspirin 81 MG TAB.CHEW PO (07:31)
[2018-04-15] MEDS: Thiamine Hydrochloride 100 MG Tablet PO (07:31)
[2018-04-15] MEDS: Multivitamins,Therapeutic Tablet 1 TABLET PO (07:31)
[2018-04-15 07:32] VITALS: PULSE 71
[2018-04-15] MEDS: Clopidogrel Bisulfate 75 MG Tablet PO (07:32)
[2018-04-15] MEDS: Rivaroxaban 15 MG Tablet PO (07:32)
[2018-04-15] MEDS: Metoprolol(XL)Succ 25 MG Tablet PO (07:32)
[2018-04-15] MEDS: FLUoxetine 20 MG Capsule PO (07:33)
[2018-04-15] MEDS: Pantoprazole Sodium 40 MG Tablet PO (07:33)
--- NOTE | 2018-04-15 07:35 | NURSING ---
Pt requested all AM meds prior to DC
== END 2018-04-15 08:38 | disposition home or self-care (01) | DRG 896 ==
LOC: ED 10:29 → MS2 10:51
PROVIDERS: Admitting Provider Internal Medicine; Emergency Provider Emergency Medicine; Family Provider Family Medicine; PCP Family Medicine; Visit Provider Internal Medicine
DX: F10.239 Alcohol dependence with withdrawal, unspecified (principal); I21.4 Non-ST elevation (NSTEMI) myocardial infarction; I26.99 Other pulmonary embolism without acute cor pulmonale; Y90.3 Blood alcohol level of 60-79 mg/100 ml; E78.5 Hyperlipidemia, unspecified; I25.10 Atherosclerotic heart disease of native coronary artery without angina pectoris; Z79.02 Long term (current) use of antithrombotics/antiplatelets; F17.210 Nicotine dependence, cigarettes, uncomplicated; Z95.5 Presence of coronary angioplasty implant and graft
CPT/HCPCS: 80048; 80076; 80307; 80320; 85025; 99283; 99406; J7030; J7040; G0480

== ENCOUNTER 2018-04-16 23:21 | Emergency (ER) | payer BC, SELFPAY ==
[2017-01-12 13:36] VITALS: BMI 26.6
[2018-04-12 12:01] VITALS: BMI 21.9
[2018-04-16 23:23] VITALS: BP 129/73; PULSE 75; RESP 20; TEMP 36.1; O2SAT 98; BMI 22.5
--- NOTE | 2018-04-17 00:16 | ED.VISSUMM ---
- ER Visit Summary Date of Service: 04/17/18 Chief Complaint: Alcohol withdrawal History of Present Illness: The patient is a 52 M who presents for possible alcohol withdrawal tonight. Patient was discharged from [facility] detox yesterday. Patient admits to drinking a case of beer since yesterday. Patient states his last drink was approximately 6 hours prior to arrival. Patient states he is starting to feel anxious again. Patient denies any suicidal or homicidal ideations. Patient denies any visual or auditory hallucinations. Physical Examination: Vital signs are stable. Patient is afebrile. Patient is in no acute distress. Oral mucosa is pink and moist. Neck is supple. Trachea is midline. There is no JVD noted. Heart was regular rate and rhythm. Lungs are clear and equal bilateral. Abdomen is soft. Bowel sounds are normal. There is no tenderness. There is no guarding noted. Skin is warm dry. Cranial nerves II through XII are intact. There are no focal motor or sensory deficits noted. The remaining physical exam is within normal limits. Test Results: CBC and comprehensive metabolic profile were normal. Serum alcohol level was elevated at 221. Emergency Department Course and Treatment: Patient was given a dose of Ativan here. Patient was advised that he is not in alcohol withdrawal at this time. I feel that the patient is safe to be discharged home once his alcohol level improves or he is able to find a sober ride who will accept responsibility for the patient. Patient was instructed to follow-up with [facility]. Patient understood and was agreeable with the plan. All questions were answered. Disposition: Discharge home Impression: Alcohol intoxication This note was generated with [employer] dictation software. It may contain incorrect words, spelling, and punctuation that were not noted in review of the chart prior to signing ED Disposition - Plan for ED Patient: Disposition: Home or Assisted Living Diagnosis: Alcohol intoxication Instructions: ED Alcohol Abuse Referrals: Kendell Lyons DO [Primary Care Provider] - 5-7 Days Additional Instructions: Follow-up with [facility] as scheduled.
[2018-04-17] MEDS: 0.9% Normal Saline 1,000 ML 1000 ML IV (00:23)
[2018-04-17] MEDS: LORazepam 1 MG Tablet PO (00:23)
[2018-04-17 00:39] LABS: Absolute Lymphocyte Count 2.64 X10^3/ul (0.83-4.51); Absolute Neutrophil Count 2.6 X10^3/uL (2.0-7.7); Basophil# 0.03 X10^3/uL; Basophil% 0.5 % (0-1); Eosinophil# 0.49 X10^3/uL; Eosinophils% 7.9 % (0-5); Hematocrit 37.4 % (40-54); Hemoglobin 12.5 g/dl (13.0-16.5); Lymphocyte # 2.64 X10^3/ul (4.0); Lymphocyte % 42.4 % (19-41); Mean Corp Hgb Conc 33.4 g/gl (32-36); Mean Corpuscular Hgb 33.8 pg (27.0-32.0); Mean Corpuscular Volume 101.1 fL (80-94); Monocyte# 0.47 X10^3/uL; Monocyte% 7.5 % (0-10); Neutrophil # 2.56 X10^3/uL (2.7-7.7); Neutrophil % 41.1 % (47-70); Platelet Count 237 K/mm3 (150-450); RBC Distribution Width CV 14.6 % (11.6-14.6); RBC Distribution Width SD 52.3 fl (35.1-43.9); White Blood Count 6.2 K/mm3 (4.4-11.0)
[2018-04-17 00:41] LABS: POSITIVE COUNT NO; POSITIVE DIFFERENTIAL NO; POSITIVE MORPHOLOGY NO
[2018-04-17 00:46] LABS: Prothrombin Time (Protime)PT. 13.1 SECONDS (11.7-14.9)
[2018-04-17 00:47] LABS: Partial Thromboplast Time 29.6 Seconds (24.1-36.2)
[2018-04-17 00:54] LABS: AST(SGOT) 22 U/L (15-37); Alanine Aminotransfer ALT/SGPT 25 U/L (16-61); Albumin, Serum 3.2 g/dL (3.2-5.0); Alkaline Phosphatase 86 U/L (45-117); Anion Gap 7 (5-15); BUN 5 mg/dL (7-18); BUN/Creat Ratio 8.4 RATIO (10-20); Calcium,Total 7.7 mg/dL (8.5-10.1); Chloride 109 mmol/L (98-107); EST Glomerular Filtration Rate 152 mL/min (>60); Est Glom Filt Rate - Afr Amer 183 mL/min (>60); Estimated Creatinine Clearance 166.32 ml/min; Globulin 3.1 g/dL (2.2-4.2); Glucose 78 mg/dL (74-106); Lipase 246 U/L (73-393); Potassium 3.9 mmol/L (3.5-5.1); Protein, Total 6.3 g/dL (6.4-8.2); Sodium Level 141 mmol/L (136-145)
[2018-04-17 01:54] VITALS: BP 134/76; PULSE 69; RESP 16; O2SAT 99
== END 2018-04-17 01:55 | disposition home or self-care (01) ==
PROVIDERS: Emergency Provider Emergency Medicine; Family Provider Family Medicine; PCP Family Medicine
DX: F10.129 Alcohol abuse with intoxication, unspecified (principal); Y90.7 Blood alcohol level of 200-239 mg/100 ml; I25.10 Atherosclerotic heart disease of native coronary artery without angina pectoris; E11.9 Type 2 diabetes mellitus without complications; E78.00 Pure hypercholesterolemia, unspecified; Z86.711 Personal history of pulmonary embolism; Z72.0 Tobacco use; Z79.82 Long term (current) use of aspirin; Z79.02 Long term (current) use of antithrombotics/antiplatelets; Z79.899 Other long term (current) drug therapy
CPT/HCPCS: 80053; 80320; 83690; 85025; 85610; 85730; 96360; 96361; 99284; J7030; A4216; G0480

== ENCOUNTER 2018-04-20 15:29 | Emergency (ER) | payer BC, SELFPAY ==
[2017-01-12 13:36] VITALS: BMI 26.6
[2018-04-20 15:31] VITALS: BP 102/59; PULSE 101; RESP 17; TEMP 36.1; O2SAT 98; BMI 23.1
[2018-04-20] MEDS: 0.9% Normal Saline 1,000 ML 1000 ML IV (16:23)
[2018-04-20] MEDS: Ketorolac 30 MG/ML Syringe IV (16:23)
[2018-04-20 16:47] LABS: ALB/GLOB Ratio 1.1 RATIO (0.9-2.4); AST(SGOT) 22 U/L (15-37); Alanine Aminotransfer ALT/SGPT 25 U/L (16-61); Albumin, Serum 3.5 g/dL (3.2-5.0); Alkaline Phosphatase 94 U/L (45-117); Anion Gap 12 (5-15); BUN 7 mg/dL (7-18); BUN/Creat Ratio 10.4 RATIO (10-20); Calcium,Total 8.1 mg/dL (8.5-10.1); Chloride 105 mmol/L (98-107); Creatinine, Serum 0.67 mg/dL (0.70-1.30); EST Glomerular Filtration Rate 131 mL/min (>60); Est Glom Filt Rate - Afr Amer 159 mL/min (>60); Estimated Creatinine Clearance 153.42 ml/min; Globulin 3.3 g/dL (2.2-4.2); Glucose 78 mg/dL (74-106); Lipase 274 U/L (73-393); Potassium 3.8 mmol/L (3.5-5.1); Protein, Total 6.8 g/dL (6.4-8.2); Sodium Level 137 mmol/L (136-145)
[2018-04-20 17:01] LABS: Absolute Lymphocyte Count 2.06 X10^3/ul (0.83-4.51); Basophil# 0.02 X10^3/uL; Basophil% 0.2 % (0-1); Eosinophil# 0.19 X10^3/uL; Eosinophils% 2.1 % (0-5); Hematocrit 39.1 % (40-54); Hemoglobin 13.2 g/dl (13.0-16.5); Lymphocyte # 2.06 X10^3/ul (4.0); Lymphocyte % 22.9 % (19-41); Mean Corp Hgb Conc 33.8 g/gl (32-36); Mean Corpuscular Hgb 33.8 pg (27.0-32.0); Mean Platelet Vol. 9.5 fl (6.2-12.0); Monocyte# 0.65 X10^3/uL; Monocyte% 7.2 % (0-10); Neutrophil # 6.04 X10^3/uL (2.7-7.7); Neutrophil % 67.3 % (47-70); Platelet Count 314 K/mm3 (150-450); RBC Distribution Width CV 14.2 % (11.6-14.6); RBC Distribution Width SD 50.6 fl (35.1-43.9); Red Blood Count 3.91 M/mm3 (4.6-6.2)
[2018-04-20 17:09] LABS: POSITIVE COUNT NO; POSITIVE DIFFERENTIAL NO; POSITIVE MORPHOLOGY NO
--- NOTE | 2018-04-20 17:14 | ED.VISSUMM ---
- ER Visit Summary Date of Service: 04/20/18 Chief Complaint: Chest pain shortness of breath History of Present Illness: The patient is a 52 M who presents with chest pain and shortness of breath that has been constant for the past 2 days. Patient states the pain is worse with coughing. Patient states the pain is over the lower chest bilaterally. Patient states he knows he has blood clots in his right lung and fractured ribs on the left. Patient states his fractured ribs have almost healed. Patient admits to a cough but denies any sputum production. He describes his pain is sharp. Physical Examination: Vital signs are stable. Patient is afebrile. Patient is in no acute distress. Oral mucosa is pink and moist. Neck is supple. Trachea is midline. There is no JVD noted. Heart was regular rate and rhythm. Lungs are clear and equal bilateral. There is tenderness to palpation of the lower chest bilaterally. Abdomen is soft. Bowel sounds are normal. There is mild upper abdominal tenderness. There is no guarding noted. Skin is warm dry. Cranial nerves II through XII are intact. There are no focal motor or sensory deficits noted. The remaining physical exam is within normal limits. Test Results: CBC and comprehensive metabolic profile were within normal limits. Emergency Department Course and Treatment: Patient was given IV fluids and Toradol here. Patient had minimal improvement of his pain. Patient was instructed to continue Tylenol as needed for pain. Patient was instructed to follow-up with his primary care physician in 7-10 days. Patient understood and was agreeable with the plan. All questions were answered. Disposition: Discharge home Impression: Chest pain This note was generated with [employer] dictation software. It may contain incorrect words, spelling, and punctuation that were not noted in review of the chart prior to signing ED Disposition - Plan for ED Patient: Disposition: Home or Assisted Living Diagnosis: Chest pain Instructions: ED Chest Pain [facility] Referrals: Kendell Lyons DO [Primary Care Provider] -
[2018-04-20 17:26] VITALS: BP 110/69; PULSE 97; RESP 16; O2SAT 98
== END 2018-04-20 17:27 | disposition home or self-care (01) ==
PROVIDERS: Emergency Provider Emergency Medicine; Family Provider Family Medicine; PCP Family Medicine
DX: R07.9 Chest pain, unspecified (principal); R06.02 Shortness of breath; I10 Essential (primary) hypertension; I25.2 Old myocardial infarction; Z86.711 Personal history of pulmonary embolism; Z79.01 Long term (current) use of anticoagulants; Z79.82 Long term (current) use of aspirin; Z79.899 Other long term (current) drug therapy; Z72.0 Tobacco use
CPT/HCPCS: 80053; 83690; 85025; 96361; 96374; 99283

== ENCOUNTER 2018-04-22 21:10 | Emergency (ER) | payer BC, SELFPAY ==
[2017-01-12 13:36] VITALS: BMI 26.6
[2018-04-22 21:11] VITALS: BP 123/75; PULSE 77; RESP 16; TEMP 36.1; O2SAT 99; BMI 23.6
[2018-04-22 22:37] LABS: Absolute Lymphocyte Count 2.91 X10^3/ul (0.83-4.51); Absolute Neutrophil Count 4.2 X10^3/uL (2.0-7.7); Basophil# 0.03 X10^3/uL; Basophil% 0.4 % (0-1); Eosinophil# 0.51 X10^3/uL; Hematocrit 40.2 % (40-54); Hemoglobin 13.8 g/dl (13.0-16.5); Lymphocyte # 2.91 X10^3/ul (4.0); Mean Corp Hgb Conc 34.3 g/gl (32-36); Mean Corpuscular Hgb 33.9 pg (27.0-32.0); Mean Corpuscular Volume 98.8 fL (80-94); Mean Platelet Vol. 9.1 fl (6.2-12.0); Monocyte# 0.84 X10^3/uL; Monocyte% 9.8 % (0-10); Neutrophil # 4.24 X10^3/uL (2.7-7.7); Neutrophil % 49.6 % (47-70); Platelet Count 329 K/mm3 (150-450); RBC Distribution Width SD 50.3 fl (35.1-43.9); Red Blood Count 4.07 M/mm3 (4.6-6.2); White Blood Count 8.6 K/mm3 (4.4-11.0)
[2018-04-22 22:43] LABS: POSITIVE COUNT NO; POSITIVE DIFFERENTIAL NO; POSITIVE MORPHOLOGY NO
[2018-04-22 22:48] LABS: Amphetamine Urine VISTA NEGATIVE (<1000 ng/mL); Barbiturate Urine VISTA NEGATIVE (< 200 ng/mL); Benzodiazepine Urine VISTA POSITIVE (< 200 ng/mL); Cocaine Urine VISTA NEGATIVE (< 300 ng/mL); Ecstacy Urine VISTA NEGATIVE (< 500 ng/mL); Methadone Urine VISTA NEGATIVE (< 300 ng/mL); PCP Urine VISTA NEGATIVE (< 25 ng/mL); THC Urine VISTA NEGATIVE (< 50 ng/mL); Vista UDS pH Range 5
[2018-04-22 22:57] LABS: AST(SGOT) 22 U/L (15-37); Alanine Aminotransfer ALT/SGPT 23 U/L (16-61); Albumin, Serum 3.5 g/dL (3.2-5.0); Alkaline Phosphatase 90 U/L (45-117); Anion Gap 6 (5-15); BUN 6 mg/dL (7-18); BUN/Creat Ratio 8.5 RATIO (10-20); Calcium,Total 7.6 mg/dL (8.5-10.1); Chloride 99 mmol/L (98-107); EST Glomerular Filtration Rate 125 mL/min (>60); Est Glom Filt Rate - Afr Amer 151 mL/min (>60); Estimated Creatinine Clearance 147.54 ml/min; Globulin 3.4 g/dL (2.2-4.2); Glucose 81 mg/dL (74-106); Potassium 3.9 mmol/L (3.5-5.1); Protein, Total 6.9 g/dL (6.4-8.2); Sodium Level 130 mmol/L (136-145)
[2018-04-22] MEDS: Acetaminophen 500 MG Tablet 1000 MG PO (23:03)
[2018-04-22] MEDS: Rivaroxaban 15 MG Tablet PO (23:03)
[2018-04-22] MEDS: hydrOXYzine PAM 25 MG Capsule 50 MG PO (23:03)
[2018-04-22 23:05] VITALS: BP 109/71; PULSE 74; RESP 15; O2SAT 98
[2018-04-22 23:06] VITALS: TEMP 36.4
--- NOTE | 2018-04-22 23:34 | ED.VISSUMM ---
- ER Visit Summary Date of Service: 04/22/18 Chief Complaint: Suicidal ideation History of Present Illness: The patient is a 52 M brought in by police for suicidal thoughts. He was crying and upset and suicidal. He had a box of straight razors next to him. He was pink slipped by police. He is currently denying any suicidal thoughts. He said he drank 16 beers. Denies any other complaints or symptoms. Physical Examination: Afebrile and vital signs unremarkable. Heart and lung exam unremarkable. Depressed mood. Test Results: Sodium 130. Otherwise labs unremarkable. Tox screen positive for benzodiazepines and alcohol level 266. Emergency Department Course and Treatment: Patient had suicide precautions/sitter. Patient will need evaluation by crisis in the morning. The oncoming physician will assume care. Treatment Plan: As above Disposition: Pending crisis evaluation Impression: 1. Suicidal ideation 2. Alcohol intoxication This note was generated with [employer] dictation software. It may contain incorrect words, spelling, and punctuation that were not noted in review of the chart prior to signing ED Disposition - Plan for ED Patient: Referrals: Kendell Lyons DO [Primary Care Provider] -
[2018-04-23] VITALS (8 sets, daily range): BP systolic 97–130; BP diastolic 69–80; PULSE 70–114; RESP 14–18; O2SAT 98
[2018-04-23] MEDS: LORazepam 1 MG Tablet PO (00:36)
--- NOTE | 2018-04-23 06:17 | NURSING ---
TALKED TO KARMA FROM CRISIS AT [phone]
[2018-04-23] MEDS: Acetaminophen 500 MG Tablet 1000 MG PO (06:31)
--- NOTE | 2018-04-23 08:15 | ED.DEP ---
ED Disposition - Plan for ED Patient: Disposition: Home or Assisted Living Instructions: ED Depression Referrals: Kendell Lyons DO [Primary Care Provider] - As Needed Counseling,Center [GROUP OF PHYSICIANS] - As soon as possible Additional Instructions: Follow-up both with the counseling center in detox. Return if feeling worse or suicidal.
== END 2018-04-23 08:21 | disposition home or self-care (01) ==
PROVIDERS: Emergency Medicine; Emergency Provider Emergency Medicine; Family Provider Family Medicine; PCP Family Medicine
DX: R45.851 Suicidal ideations (principal); F10.129 Alcohol abuse with intoxication, unspecified; Y90.8 Blood alcohol level of 240 mg/100 ml or more; I25.10 Atherosclerotic heart disease of native coronary artery without angina pectoris; I25.2 Old myocardial infarction; Z72.0 Tobacco use; Z86.711 Personal history of pulmonary embolism
CPT/HCPCS: 80053; 80307; 80320; 85025; 99284; G0480

== ENCOUNTER 2018-07-16 21:05 | Emergency (ER) | payer BC, SELFPAY ==
[2017-01-12 13:36] VITALS: BMI 26.6
[2018-07-16 21:06] VITALS: BP 125/84; PULSE 106; RESP 18; TEMP 36.6; O2SAT 94; BMI 23.7
--- NOTE | 2018-07-16 21:29 | EKG12_ITS ---
Test Reason : CP Blood Pressure : / mmHG Vent. Rate : 100 BPM Atrial Rate : 100 BPM P-R Int : 154 ms QRS Dur : 092 ms QT Int : 334 ms P-R-T Axes : 055 -15 055 degrees QTc Int : 430 ms Normal sinus rhythm Normal ECG Confirmed by ED VENTURA, GURPREET ([id number]), make up editor FEMI AKHTAR ([id number]) on 07/18/2018 8:09:52 AM Referred By: RU Confirmed By:GURPREET WARD MD
[2018-07-16 21:38] VITALS: O2SAT 100
--- NOTE | 2018-07-16 21:38 | ED.RN ---
PT HAS CALLED RN TO ROOM 3X. ASKING FOR PAIN MEDS, EDUCATED AND DECLINED. ASKING WHERE THE MD WAS, EDUCATED PT AND FOR THE RESTROOM. PT ESCORTED TO RR BY RN.
--- NOTE | 2018-07-16 21:45 | ED.RN ---
PT CALLED RN INTO ROOM AGAIN, PT THEN STARTED YELLING, SWEARING OBSCENITIES AT RN. PT STATES HIS HEAD IS HURTING, HAS BEEN HURTING FOR 5 DAYS AND WANTS THE MD TO COME TO ROOM NOW. PT CONTINUES TO YELL. RN USES SOFT VOICE TO EDUCATE PT. PT HAS BEEN MOVED AHEAD OF OTHER PEOPLE WHO ARRIVED AFTER HE DID. PT OFFERED LIGHTS OFF, COLD CLOTH AND ICE PACK. PT EDUCATED THAT RNS HAVE STARTED NURSING PROTOCOLS.
[2018-07-16 21:46] LABS: Absolute Lymphocyte Count 2.11 X10^3/ul (0.83-4.51); Absolute Neutrophil Count 9.2 X10^3/uL (2.0-7.7); Basophil# 0.01 X10^3/uL; Basophil% 0.1 % (0-1); Eosinophil# 0.12 X10^3/uL; Hematocrit 41.5 % (40-54); Hemoglobin 14.4 g/dl (13.0-16.5); Lymphocyte # 2.11 X10^3/ul (4.0); Lymphocyte % 17.3 % (19-41); Mean Corp Hgb Conc 34.7 g/gl (32-36); Mean Corpuscular Hgb 32.4 pg (27.0-32.0); Mean Corpuscular Volume 93.3 fL (80-94); Mean Platelet Vol. 9.2 fl (6.2-12.0); Monocyte# 0.71 X10^3/uL; Monocyte% 5.8 % (0-10); Neutrophil # 9.21 X10^3/uL (2.7-7.7); Neutrophil % 75.6 % (47-70); POSITIVE COUNT NO; POSITIVE DIFFERENTIAL NO; POSITIVE MORPHOLOGY NO; Platelet Count 281 K/mm3 (150-450); RBC Distribution Width CV 12.6 % (11.6-14.6); RBC Distribution Width SD 42.9 fl (35.1-43.9); Red Blood Count 4.45 M/mm3 (4.6-6.2); White Blood Count 12.2 K/mm3 (4.4-11.0)
[2018-07-16 21:48] LABS: Anion Gap 9 (5-15); BUN 9 mg/dL (7-18); BUN/Creat Ratio 12.6 RATIO (10-20); Calcium,Total 7.9 mg/dL (8.5-10.1); Chloride 106 mmol/L (98-107); Creatinine, Serum 0.72 mg/dL (0.70-1.30); EST Glomerular Filtration Rate 122 mL/min (>60); Est Glom Filt Rate - Afr Amer 148 mL/min (>60); Estimated Creatinine Clearance 139.54 ml/min; Glucose 143 mg/dL (74-106); Potassium 3.8 mmol/L (3.5-5.1); Sodium Level 137 mmol/L (136-145)
[2018-07-16 22:08] VITALS: BP 124/66; PULSE 90; RESP 18; O2SAT 94
--- NOTE | 2018-07-16 22:09 | ED.RN ---
PT ANGRY THAT HE HAS NOT BEEN SEEN. SHOUTING, WHY CAN'T YOU GIVE ME SOMETHING FOR MY HEADACHE, THIS IS FUCKING RIDICULOUS, YOU PEOPLE ARE FUCKING RIDICULOUS. WHERE IS THE FUCKING DOCTOR. THIS RN AT BEDSIDE WITH PT TRYING TO DEESCALATE SITUATION. PT ADMITS TO DRINKING TODAY. PT INFORMED OF WAITING FOR DOCTOR. LIGHTING ADJUSTED PER PT REQUEST.
--- NOTE | 2018-07-16 22:09 | ED.RN ---
PT PUTS SURGEON/PRESIDENT LIGHT, THIS RN RESPONDS. PT CONTINUES WITH YELLING AT RN AND USING OBSCENITIES. PT WANTS TO USE RESTROOM. PT YANKS CARDIAC LEADS OFF AND AMBULATES TO RESTROOM WITH A STEADY AND INDEPENDENT GAIT.
--- NOTE | 2018-07-16 22:10 | ED.RN ---
DR. MO AT BEDSIDE.
[2018-07-16] MEDS: DiphenhydrAMINE 50 MG/ML Syringe 25 MG IV (22:20)
[2018-07-16] MEDS: Ketorolac 30 MG/ML Syringe IV (22:21)
[2018-07-16] MEDS: 0.9% Normal Saline 1,000 ML 999 ML IV (22:22)
[2018-07-16] MEDS: Metoclopramide 10 MG/2 ML Vial IV (22:22)
--- NOTE | 2018-07-16 22:27 | ED.RN ---
PT REFUSES MONITOR. PT HAS APOLOGIZED NUMEROUS TIMES FOR HIS BEHAVIOR AND THEN USES OBSCENITIES AT RN. PT INFORMED POC. PT ASKS FOR ANXIETY MEDICATION, AWARE.
--- NOTE | 2018-07-16 22:37 | ED.RN ---
PT CALLS RN INTO ROOM, HE STATES HIS BIGG IS COMING TO PICK HIM UP AND HE NEEDS TO GO, STATING HE CAN'T HANDLE IT ANYMORE. IV REMOVED, MD AWARE.
--- NOTE | 2018-07-16 23:31 | ED.VISSUMM ---
- ER Visit Summary Date of Service: 07/16/18 Chief Complaint: Headache, chest pain, epigastric pain, anxiety History of Present Illness: The patient is a 52 M was seen by me initially, however I could not reevaluate him and do not have full work-up on him because he eloped prior to full evaluation. Apparently has had a headache for 5 days, he thought it was a hangover but wants to make sure that is not something worse. He has no vision changes, no nausea or vomiting. He also is now complaining of chest pain and anxiety that started while in the emergency department. Physical Examination: Not appear in acute distress. I do smell fermentation on his breath, however he is lucid mostly coherent does not appear overly intoxicated. Moist mucous membranes, no obvious facial deformity No C-spine tenderness supple neck. Regular rate and rhythm without any obvious murmurs Clear lungs bilaterally speaking in full sentences without any obvious respiratory distress Abdomen soft and nontender no guarding or rebound Moves all extremities without any difficulty or pain. Skin does not show any obvious rashes or lesions, no trauma. Alert oriented ?3 with no gross focal deficit Emergency Department Course and Treatment: Cardiac work-up and head CT were ordered, unfortunately patient left prior to evaluation he did not let me know, when I initially had examined him he was lucid and coherent I hope he did not go and drink more alcohol, however at this time I do not have any indication to call the police since I cannot detain him against his will and he is lucid and coherent. Disposition: Eloped Impression: Chest pain Headache This note was generated with [employer] dictation software. It may contain incorrect words, spelling, and punctuation that were not noted in review of the chart prior to signing ED Disposition - Plan for ED Patient: Disposition: Against Medical Advice Referrals: Care Physician,No Primary [Primary Care Provider] -
== END 2018-07-16 22:38 | disposition left against medical advice (07) ==
PROVIDERS: Emergency Provider Emergency Medicine
DX: R51 Headache (principal); R07.9 Chest pain, unspecified; R00.2 Palpitations; R10.13 Epigastric pain; F41.9 Anxiety disorder, unspecified; F10.99 Alcohol use, unspecified with unspecified alcohol-induced disorder; Y90.9 Presence of alcohol in blood, level not specified; Z53.21 Procedure and treatment not carried out due to patient leaving prior to being seen by health care provider; Z79.82 Long term (current) use of aspirin; Z79.899 Other long term (current) drug therapy; Z72.0 Tobacco use
CPT/HCPCS: 80048; 84484; 85025; 93005; 96361; 96374; 96375; 99285; J7030; A4216

== ENCOUNTER 2018-07-23 11:09 | Emergency (ER) | payer BC, SELFPAY ==
[2017-01-12 13:36] VITALS: BMI 26.6
[2018-07-23 11:10] VITALS: BP 100/49; PULSE 71; RESP 15; TEMP 36.3; O2SAT 96; BMI 23.1
--- NOTE | 2018-07-23 12:08 | ED.DCSUM_ITS ---
History of Present Illness Chief Complaint: Headache Informant: Patient Onset: Month(s) Current Severity: Mild Narrative: Patient presents complaining of headache for 2 to 4 weeks pounding sensation bitemporal area no fever no cough no paresthesias he admits to having heart disease for which he takes Plavix, he reports alcohol abuse chronically 4-5 beers he goes to [employer] meetings, he has no history of head injury head trauma stroke seizure brain tumor no family history indicates he was in the emergency room to the day for the similar headache in the left because he could not get his head CT fast enough otherwise his health conditions have all been unremarkable and stable Past Medical History - Allergies and Home Meds Allergies/Adverse Reactions: Allergies No Known Allergies Allergy (Verified 07/23/18 11:14) Primary Care Physician: Care Physician,No Primary [Primary Care Provider] - Surgical History: - - PCI x 2, T+A, L inguinal hernia repair. Smoking Status: Light Smoker (<10/day) - Family History Sibling Family History: Family History (Last Reviewed 04/06/18 @ 00:09 by Jourdan Alicia DO) Father Myocardial infarction, Onset Age: 36 Mother Myocardial infarction Cancer Family History: Reports: - - Patient notes a history of a sister who underwent a CABG early in life. Maternal Family History: Family History (Last Reviewed 04/06/18 @ 00:09 by Jourdan Alicia DO) Father Myocardial infarction, Onset Age: 36 Mother Myocardial infarction Cancer Family History: Reports: - - Patient notes a maternal family history of coronary disease with at least 6 stents during her lifetime. Paternal Family History: Family History (Last Reviewed 04/06/18 @ 00:09 by Jourdan Alicia DO) Father Myocardial infarction, Onset Age: 36 Mother Myocardial infarction Cancer Family History: Reports: - - Patient notes a paternal family history of heart disease, passing secondary to fatal [place] at age 36. Review of Systems General: Denies: Chills, Fever, Sweats Eyes: Denies: Visual changes - bilaterally, Diplopia ENT: Denies: Rhinorrhea, Sore throat Cardiovascular: Denies: Chest pain, Palpitations Respiratory: Denies: Dyspnea, Cough, Dyspnea on exertion Gastrointestinal: Denies: Abdominal pain, Nausea, Vomiting, Diarrhea, Melena, Hematochezia Genitourinary: Denies: Dysuria, Hematuria, Frequency Musculoskeletal: Denies: Back pain, Extremity Pain Skin: Denies: Rash, Wounds Neurological: Reports: Headache. Denies: Weakness, Numbness Physical Exam Vital Signs/Narrative: Vital Signs Temp Pulse Resp BP Pulse Ox 07/23/18 11:10 97.3 F L 71 15 100/49 L 96 General: Well nourished, Well developed, No Acute Distress Head: Normocephalic, Atraumatic Eyes: Perrl, EOMI ENT: Moist mucous membranes, No rhinorrhea Neck: Supple, Nontender Cardiovascular: Regular rate, Regular rhythm, No murmurs Respiratory: No distress, CTA bilaterally, Chest nontender Abdomen: Soft, Nontender, Nondistended, Normal bowel sounds Back: Nontender, Normal Inspection Extremities: Nontender, No edema Skin: Normal color, No rash Neurological: Alert, Oriented x3, Cranial nerves II-XII grossly intact, Normal Strength, Normal Sensation, - - His physical exam is entirely unremarkable he is awake and alert his cranial nerve motor or sensory cerebellar speech visual exam unremarkable he is complaining of his bitemporal headache for 2 to 4 weeks he is taken nothing at home for the headache not even Tylenol he continues to complain of this intermittent headache he also indicated he has chronic anxiety and he wants to be treated for anxiety I explained to him at this point time will focus on the chief complaint and given his medications past medical history risk profile the only safe medication is Tylenol he was extremely dissatisfied with that discussion Psychological: Normal affect, Normal Mood Diagnostic/Tx/Re-eval - Medical Decision Making Head CT Tylenol for pain see the above note ED Disposition - Plan for ED Patient: Instructions: ED Cephalgia Unspecified Referrals: Care Physician,No Primary [Primary Care Provider] - Additional Instructions: Follow-up with your outpatient providers for further management of the above consider going alcohol detox take Tylenol for your headache
--- NOTE | 2018-07-23 12:14 | ED.RN ---
This nurse went to give the pt the tylenol that was ordered. pt got mad and refused the tylenol. He said that you guys do this all the fucking time. I can go home and take tylenol and sit there. What are the orders? Pt was told tylenol and a CT. Pt again refused tylenol and wanted something for anxiety and percocet for his headache. Pt was told what the orders were again. Pt started cussing at this nurse. He stood up in the room and started swinging arms and cussing. Pt was told what the orders were again and told that if he did not stop being belligerent and acting out that he could leave. Pt walled out. Dr Millsed aware.
--- NOTE | 2018-07-24 20:35 | ED.RN ---
PATIENT CALLED IN ASKING ABOUT CT SCAN RESULTS
== END 2018-07-23 12:21 | disposition home or self-care (01) ==
LOC: ED 12:15
PROVIDERS: Emergency Provider Emergency Medicine
DX: R51 Headache (principal); Z53.21 Procedure and treatment not carried out due to patient leaving prior to being seen by health care provider; I51.9 Heart disease, unspecified; Z79.02 Long term (current) use of antithrombotics/antiplatelets; F10.10 Alcohol abuse, uncomplicated; F17.200 Nicotine dependence, unspecified, uncomplicated
CPT/HCPCS: 99281

== ENCOUNTER 2018-07-23 15:37 | Emergency (ER) | payer BC, SELFPAY ==
[2017-01-12 13:36] VITALS: BMI 26.6
[2018-07-23 11:10] VITALS: BMI 23.1
[2018-07-23 15:37] VITALS: BP 101/51; PULSE 71; RESP 16; TEMP 36.3; O2SAT 94; BMI 22.5
--- NOTE | 2018-07-23 15:57 | CT_ITS ---
STUDY: CT BRAIN WITHOUT CONTRAST REASON FOR EXAM: Male, 52 years old. Headache RADIATION DOSAGE (If Supplied By Facility): CTDIvol = ( 44.99 ) mGy, DLP = ( 863.60 ) mGycm TECHNIQUE: Transaxial CT imaging of the brain was performed without administration of intravenous contrast material. Individualized dose optimization techniques were used for this CT. COMPARISON: No relevant priors. FINDINGS: Normal soft tissue structures. Normal calvarium. 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 Normal size ventricles and extra-axial spaces for the patient's age. Normal white matter tracts of the cerebral hemispheres. Normal basal ganglia and thalami. Normal brainstem. Normal cerebellum. There is no intracranial hemorrhage. There are no findings of an acute ischemic infarction. Left maxillary sinus disease. CT/Brain/Head without Contrast IMPRESSION: No evidence of infarct or hemorrhage. 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 Left maxillary sinus disease. Electronically Signed: Jim Daley MD at 16:19 EDT Tel , Service support ,
--- NOTE | 2018-07-23 16:02 | ED.VIS.GEN ---
History of Present Illness Informant: Patient Onset: Weeks Timing: Continuous <Mike Delgado - Last Filed: 07/23/18 16:03> Informant: Patient Onset: Weeks - 2 weeks Context: Gradual Onset Quality: aching Location: diffuse throughout the head Current Severity: Severe Maximum Severity: Severe Worsened by: bright lights Relieved by: nothing Associated Symptoms: denies Narrative: 52-year-old male with a history of alcohol abuse presents with headache. Patient was actually seen here earlier today for similar complaints but eloped from the emergency department prior to testing being performed. He states he has had a diffuse headache for 2 weeks. It is constant and aching in nature. It does not radiate. It is exacerbated by bright lights and sunlight. He has been taking Tylenol with minimal relief. He has not been lightheaded or dizzy. He denies nausea vomiting or diarrhea. He denies visual changes numbness or weakness. He has not had difficulty with speech or ambulation. He is an alcoholic. He drinks 6-12 beers per day. He had 6 beers 2 hours prior to arrival. He denies any history of migraines. He does take blood pressure medications which he states he has been compliant with. Prior similar symptoms: Yes Recent Illness/Hospitalization: No <Alexx Monzon - Last Filed: 07/23/18 16:36> Chief Complaint: Headache Past Medical History Surgical History: - - PCI x 2, T+A, L inguinal hernia repair. Smoking Status: Current every day smoker - Family History Sibling Family History: Family History (Last Reviewed 04/06/18 @ 00:09 by Jourdan Alicia DO) Father Myocardial infarction, Onset Age: 36 Mother Myocardial infarction Cancer Family History: Reports: - - Patient notes a history of a sister who underwent a CABG early in life. Maternal Family History: Family History (Last Reviewed 04/06/18 @ 00:09 by Jourdan Alicia DO) Father Myocardial infarction, Onset Age: 36 Mother Myocardial infarction Cancer Family History: Reports: - - Patient notes a maternal family history of coronary disease with at least 6 stents during her lifetime. Paternal Family History: Family History (Last Reviewed 04/06/18 @ 00:09 by Jourdan Alicia DO) Father Myocardial infarction, Onset Age: 36 Mother Myocardial infarction Cancer Family History: Reports: - - Patient notes a paternal family history of heart disease, passing secondary to fatal [place] at age 36. <Mike Delgado - Last Filed: 07/23/18 16:03> Past Medical History: - - CAD, alcohol abuse - Family History Sibling Family History: Family History (Last Reviewed 04/06/18 @ 00:09 by Jourdan Alicia DO) Father Myocardial infarction, Onset Age: 36 Mother Myocardial infarction Cancer Maternal Family History: Family History (Last Reviewed 04/06/18 @ 00:09 by Jourdan Alicia DO) Father Myocardial infarction, Onset Age: 36 Mother Myocardial infarction Cancer Paternal Family History: Family History (Last Reviewed 04/06/18 @ 00:09 by Jourdan Alicia DO) Father Myocardial infarction, Onset Age: 36 Mother Myocardial infarction Cancer <Alexx Monzon - Last Filed: 07/23/18 16:36> - Allergies and Home Meds Allergies/Adverse Reactions: Allergies No Known Allergies Allergy (Verified 07/23/18 15:39) Primary Care Physician: Care Physician,No Primary [Primary Care Provider] - Review of Systems All systems negative except as indicated Cardiovascular: Denies: Chest pain Neurological: Reports: Headache. Denies: Weakness, Parasthesia, Numbness <Alexx Monzon - Last Filed: 07/23/18 16:36> Physical Exam Vital Signs/Narrative: Vital Signs Temp Pulse Resp BP Pulse Ox 07/23/18 15:37 97.4 F L 71 16 101/51 L 94 <Mike Delgado - Last Filed: 07/23/18 16:03> Vital Signs/Narrative: Vital Signs Temp Pulse Resp BP Pulse Ox 07/23/18 15:37 97.4 F L 71 16 101/51 L 94 Inital Vital Signs reviewed: Yes General: Well nourished, Well developed, No Acute Distress Head: Normocephalic, Atraumatic Eyes: Perrl, EOMI ENT: Moist mucous membranes, TM's clear Neck: Supple, Nontender Cardiovascular: Regular rate, Regular rhythm, No murmurs Respiratory: No distress, CTA bilaterally, Chest nontender Abdomen: Soft, Nontender, Nondistended, Normal bowel sounds, No masses Back: Nontender Extremities: Nontender, No edema Skin: Normal color, No rash Neurological: Alert, Oriented x3, Cranial nerves II-XII grossly intact, Normal Strength, Normal Sensation, Normal Gait Psychological: Normal affect <Alexx Monzon - Last Filed: 07/23/18 16:36> Diagnostic/Tx/Re-eval - Medical Decision Making 52-year-old male that I assessed with our physician library services assistant. Patient has a history of chronic alcohol abuse. He also has had a prior [place] and is on Plavix. He states he had a chronic headache now that is diffuse for the last 2 weeks. Denies any fall or trauma. He was actually here earlier today at that time he was offered a CAT scan but refused. Patient was requesting narcotic pain medications and Ativan and left without being discharged. He denies any fever or sinus congestion. Denies any neurological symptoms. Well-appearing middle-aged male. Vital signs are stable. He is afebrile. He does not look septic or toxic. He is in no distress. HEENT exam is unremarkable. Pupils are round react to light. There is no signs of trauma. Lungs are clear. Heart regular rhythm no murmur. Abdomen is soft. Patient is moving all 4 extremities. Neurologically is awake and alert with no focal motor deficits. NIH score is 0. I did review recent labs are unremarkable. Due to the patient's history of alcohol abuse and being on Plavix we are going obtain a CAT scan of the brain without contrast. I did discuss with him that we would not be treating him with narcotics for his headache. Impression: #1 acute cephalgia 2. Anticoagulated on Plavix 3. History of alcohol abuse <Mike Delgado - Last Filed: 07/23/18 16:03> ED Disposition <Mike Delgado - Last Filed: 07/23/18 16:03> <Alexx Monzon - Last Filed: 07/23/18 16:36> - Plan for ED Patient: Disposition: Home or Assisted Living Diagnosis: Headache Instructions: ED Headache Sinus Prescriptions: Fluticasone 0.05% [Flonase Nasal Independence] 1 spray NASAL DAILY #1 nasal.sry Referrals: Care Physician,No Primary [Primary Care Provider] -
== END 2018-07-23 16:42 | disposition home or self-care (01) ==
PROVIDERS: Emergency Provider Physician Assistant Medical
DX: R51 Headache (principal); F10.10 Alcohol abuse, uncomplicated; Y90.9 Presence of alcohol in blood, level not specified; I25.2 Old myocardial infarction; I25.10 Atherosclerotic heart disease of native coronary artery without angina pectoris; Z79.02 Long term (current) use of antithrombotics/antiplatelets; Z79.82 Long term (current) use of aspirin; Z79.899 Other long term (current) drug therapy; F17.200 Nicotine dependence, unspecified, uncomplicated
CPT/HCPCS: 70450; 99283

== ENCOUNTER 2018-07-24 21:36 | Emergency (ER) | payer BC, SELFPAY ==
[2017-01-12 13:36] VITALS: BMI 26.6
[2018-07-23 15:37] VITALS: BMI 22.5
[2018-07-24 21:37] VITALS: BP 134/74; PULSE 69; RESP 15; TEMP 36.7; O2SAT 95; BMI 22.5
--- NOTE | 2018-07-24 22:14 | ED.RN ---
PATIENT GOT UP TO USE THE RESTROOM. PATIENT WALKED BACK TO THE ROOM AND WANTS TO LEAVE AT THIS TIME. PATIENT DOES NOT WANT TO WAIT AROUND ANY LONGER. PATIENT ALERT AND ORIENTED ABLE TO ANSWER ALL QUESTIONS APPROPRIATELY
== END 2018-07-24 22:20 | disposition left against medical advice (07) ==
PROVIDERS: Emergency Provider Emergency Medicine
DX: Z53.21 Procedure and treatment not carried out due to patient leaving prior to being seen by health care provider (principal)
CPT/HCPCS: 99281

== ENCOUNTER 2018-09-19 07:16 | Emergency (ER) | payer BC, SELFPAY ==
[2017-01-12 13:36] VITALS: BMI 26.6
[2018-09-19 07:17] VITALS: BP 139/81; PULSE 105; RESP 17; TEMP 36.2; O2SAT 100; BMI 23.1
--- NOTE | 2018-09-19 07:37 | ED.RN ---
AFTER PHYSICIAN ASSESSED PT, PT LEFT ED WITHOUT FURTHER INTERVENTION. PT APPEARED AGITATED AND APPEARED TO BE INTOXICATED. PT WAS TOLD TO HAVE A NICE DAY, PT RESPONDED GO FUCK YOURSELF AND WALKED OUT OF THE ED. CHARGE NURSE DILIP ARRINGTON REQUESTED OF PT THAT HE NOT SPEAK THAT WAY TO STAFF. PT LEFT ED WITHOUT FURTHER INCIDENT.
--- NOTE | 2018-09-19 07:51 | ED.VISSUMM ---
- ER Visit Summary Date of Service: 09/19/18 Chief Complaint: Right hip pain History of Present Illness: The patient is a 53 M who tells me that for the past 3 days he has pain. He states that it is starting in the low back and radiating down his leg. He tells me that after he got off work today he drank beer and debated about whether or not he should come here because he does not like hospitals. Patient denies any trauma to the area. He denies any bowel or bladder dysfunction. He denies any fevers or IV drug use. Physical Examination: Afebrile vital signs are stable Gen: Well-nourished well-developed Head: Normocephalic atraumatic Eyes: Perrl EOMI ENT: TMs clear no rhinorrhea moist mucous membranes Neck: Supple no lymphadenopathy no JVD nontender CVS: Regular rate rhythm no murmurs normal S1-S2 Respiratory: No distress clear to auscultation bilaterally chest nontender Abdomen: Soft nontender nondistended normal bowel sounds no masses Back: Tender to palpation in the right lower sacroiliac region. Extremity: Nontender no edema Skin: Normal color no rash Neuro: alert orientated ?3 CN II-XII intact normal strength sensation reflexes gait (patient cannot figure out how to work his phone. There is somebody on the phone talking through the first half of the conversation I have with him. He yells at them to hang up because he cannot figure out how to hang up the phone.) Psych: Angry irritated and argumentative at the moment I sit down in the room. Emergency Department Course and Treatment: I explained to the patient that I think this is more sciatica given the location of his pain in his hip. He tells me that I am the doctor (putting doctor in air quotations) he tells me that he does not like to come to the hospital. Patient is well-known to staff and often is argumentative with them. He demands an MRI of his hip. He has no neurologic deficits. I attempted to explain to the patient that an MRI is not needed emergently to be happy to refer him to primary care if his symptoms are not improving. He begins to yell at me. I open the door and inform him that I am stepping out that he needs to cool down. The patient follows tells nursing to FUCK OFFF!!! And leaves the department. Impression: 1. Right sciatica 2. ED elopement This note was generated with [employer] dictation software. It may contain incorrect words, spelling, and punctuation that were not noted in review of the chart prior to signing ED Disposition - Plan for ED Patient: Referrals: Care Physician,No Primary [Primary Care Provider] -
--- NOTE | 2018-09-19 08:10 | NURSING ---
PATIENT CALLED AND APOLGIZED FOR SAYING WHAT HE DID TO THE RN.
--- NOTE | 2018-09-19 11:27 | EKG12_ITS ---
Test Reason : CP Blood Pressure : / mmHG Vent. Rate : 104 BPM Atrial Rate : 104 BPM P-R Int : 156 ms QRS Dur : 084 ms QT Int : 328 ms P-R-T Axes : 064 006 069 degrees QTc Int : 431 ms Sinus tachycardia with Premature atrial complexes Nonspecific ST abnormality Abnormal ECG Confirmed by ETIENNE BERRIOS ([id number]), make up editor ASHLEY SHIELDS ([id number]) on 09/22/2018 1:04:09 PM Referred By: Confirmed By:ETIENNE BERRIOS
== END 2018-09-19 08:33 | disposition home or self-care (01) ==
PROVIDERS: Emergency Provider Emergency Medicine
DX: M54.41 Lumbago with sciatica, right side (principal); Z53.21 Procedure and treatment not carried out due to patient leaving prior to being seen by health care provider; I25.10 Atherosclerotic heart disease of native coronary artery without angina pectoris; Z79.82 Long term (current) use of aspirin; Z79.899 Other long term (current) drug therapy; F10.20 Alcohol dependence, uncomplicated; Z72.0 Tobacco use
CPT/HCPCS: 93005; 99282

== ENCOUNTER 2018-09-19 11:17 | Emergency (ER) | payer BC, SELFPAY ==
[2017-01-12 13:36] VITALS: BMI 26.6
[2018-09-19 07:17] VITALS: BMI 23.1
[2018-09-19 11:18] VITALS: BP 119/93; PULSE 20; RESP 16; TEMP 36.6; O2SAT 95; BMI 24.2
--- NOTE | 2018-09-19 11:40 | ED.DCSUM_ITS ---
- ER Visit Summary Date of Service: 09/19/18 Chief Complaint: Chest and back pain History of Present Illness: The patient is a 53 M who I just saw a couple hours prior to this presentation. That time he was complaining of right hip pain and I felt that it was most likely sciatica. He left the emergency department cursing staff and proceeded to call numerous nurses and administration here at the hospital. Now he calls the ambulance to bring him to the hospital with chest pressure which she says is caused by the anxiety from his previous visit. There are multiple police officers present when I walk into the room. Patient was noted to be drinking alcohol prior to arrival. When I walked into the room he tells me oh God not you I want somebody different. I tell him that I am the attending that is on duty right now and if you would like to have a medical screening examination I am happy to do that and he is also welcome to go elsewhere. He states that he will sit and talk. He will not however choose to look at me but instead talk to the morals squad police officer rather than me. He currently denies chest pain. He states that his pain is still in his back and rating down his leg. This is been unchanged from when I saw him a couple hours ago. Physical Examination: Afebrile vital signs are stable Gen: Well-nourished well-developed Head: Normocephalic atraumatic Eyes: Perrl EOMI ENT: TMs clear no rhinorrhea moist mucous membranes Neck: Supple no lymphadenopathy no JVD nontender CVS: Regular rate rhythm no murmurs normal S1-S2 Respiratory: No distress clear to auscultation bilaterally chest nontender Abdomen: Soft nontender nondistended normal bowel sounds no masses Back: Nontender Extremity: Nontender no edema Skin: Normal color no rash Neuro: alert orientated ?3 CN II-XII intact normal strength sensation Psych: Patient is belligerent argumentative curses at me and staff and is not a willing participant in his care Test Results: EKG done upon his arrival shows a sinus rhythm at a rate of 104 without ectopy there are no concerning features for ACS. Emergency Department Course and Treatment: Patient was not allowing staff to draw his blood work. I informed him that I reviewed his EKG did not show signs of a acute heart attack. I offered for us to check his cardiac enzymes and chest x-ray which he started to agree to but then became belligerent and then declined. At this point he is not letting us do anything for him. At this point if I cannot further evaluate him then I would have to conclude that the visit is over. The patient will be discharged and the police will escort him off the premises. Impression: 1. Sciatica 2. Alcohol abuse 3. Chest pain secondary to anxiety This note was generated with [employer] dictation software. It may contain incorrect words, spelling, and punctuation that were not noted in review of the chart prior to signing Capacity - Capacity Assessment Tool Can the patient make a choice & communicate that choice?: Yes Can the patient understand benefits, risks and alternatives?: Yes Can the patient make a logical, rational choice?: Yes Is the choice the patient makes consistent w/ their values?: Yes Is there an impending, emergent risk to the patient?: No Does the patient have an Advance Directive?: No Is there a Surrogate Available?: No i.e. HCPOA: No i.e. close relative (spouse, child, parent, sibling)?: No - Patient admits to alcohol consumption but appears clinically sober. He is not slurring his words. He is able to walk a straight line. He is ANO x3. ED Disposition - Plan for ED Patient: Disposition: Home or Assisted Living Instructions: Understanding Sciatica Referrals: Care Physician,No Primary [Primary Care Provider] - Karson Harley, DO [NON CLINICAL AFFILIATE] - As Needed
--- NOTE | 2018-09-19 11:42 | ED.RN ---
IV DC'D PER PHYSICIAN REQUEST. [employer] REMAINS AT THE BEDSIDE AND ARE ATTEMPTING TO GET A TAXI FOR THE PT TO GO HOME.
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
[2018-09-19 12:21] VITALS: BP 121/74; PULSE 109; RESP 17; O2SAT 96
== END 2018-09-19 12:24 | disposition home or self-care (01) ==
LOC: ED 11:58
PROVIDERS: Emergency Provider Emergency Medicine
DX: M54.41 Lumbago with sciatica, right side (principal); F10.20 Alcohol dependence, uncomplicated; R07.89 Other chest pain; F41.9 Anxiety disorder, unspecified; I25.10 Atherosclerotic heart disease of native coronary artery without angina pectoris; Z79.82 Long term (current) use of aspirin; Z79.899 Other long term (current) drug therapy; Z72.0 Tobacco use
CPT/HCPCS: 99285

== ENCOUNTER 2018-10-07 10:29 | Emergency (ER) | payer BC, SELFPAY ==
[2017-01-12 13:36] VITALS: BMI 26.6
[2018-10-07 10:30] VITALS: BP 139/86; PULSE 84; RESP 16; TEMP 36.6; O2SAT 99; BMI 23.1
--- NOTE | 2018-10-07 10:47 | ED.DCSUM_ITS ---
- ER Visit Summary Date of Service: 10/07/18 Chief Complaint: [place] stuck in finger History of Present Illness: The patient is a 53 M with no primary care physician. He is right-hand dominant. Just prior to come the emergency department he got a fishhook caught in his right ring finger. He reports he has an aching pain is 2 out of 10 with movement. He denies any paresthesias distally. His tetanus is up-to-date. Physical Examination: Vitals: Stable. Afebrile. General: Well-nourished and well-developed. Head: Normocephalic atraumatic. Neck: Supple, no lymphadenopathy. No JVD. Nontender. Cardiovascular: Regular rate and rhythm. No murmurs. Respiratory: No respiratory distress. Clear to auscultation bilaterally. Abdominal: Soft, nontender, nondistended, normal bowel sounds. No guarding, rebound, or peritoneal signs. Back: Nontender. Extremities: [place] stuck in the palmar surface of the proximal phalanx of his right fourth finger. He is neurovascularly intact distally.. Skin: Normal color, no rash. Neurologic: Alert and oriented ?3. Cranial nerves II through XII are intact. Normal strength and sensation. Psych: Normal affect. Emergency Department Course and Treatment: Area was cleansed with chlorhexidine soap. It was anesthetized with 2% lidocaine without epinephrine. A small kayla was made in the skin and the fishhook was removed without difficulty. The patient tolerated this well. Treatment Plan: I had a prolonged discussion with patient about the risk of infection. Is instructed to follow-up with Dr. Hill in 3 to 5 days if not improving. Return to the emergency department for redness, increasing pain, or purulent drainage. Disposition: To home in improved and stable condition. Impression: 1. [place] removal right fourth finger. This note was generated with [employer] dictation software. It may contain incorrect words, spelling, and punctuation that were not noted in review of the chart prior to signing ED Disposition - Plan for ED Patient: Instructions: Fish Hook Removal Referrals: Katelin Hill DO [STAFF PHYSICIAN] - 3-5 Days if not improving
== END 2018-10-07 10:56 | disposition home or self-care (01) ==
LOC: ED 10:52
PROVIDERS: Emergency Provider Emergency Medicine
DX: S61.244A Puncture wound with foreign body of right ring finger without damage to nail, initial encounter (principal); W45.8XXA Other foreign body or object entering through skin, initial encounter; Y93.9 Activity, unspecified; Y92.9 Unspecified place or not applicable; R05 Cough; I25.10 Atherosclerotic heart disease of native coronary artery without angina pectoris; I25.2 Old myocardial infarction; I10 Essential (primary) hypertension; Z95.5 Presence of coronary angioplasty implant and graft; Z79.82 Long term (current) use of aspirin; Z79.899 Other long term (current) drug therapy; F17.200 Nicotine dependence, unspecified, uncomplicated
CPT/HCPCS: 99284; A4216

== ENCOUNTER 2019-01-04 06:37 | Emergency (ER) | payer BC, SELFPAY ==
[2017-01-12 13:36] VITALS: BMI 26.6
[2019-01-04 06:38] VITALS: BP 137/102; PULSE 70; RESP 11; TEMP 36.6; O2SAT 98; BMI 23.8
--- NOTE | 2019-01-04 06:48 | EKG12_ITS ---
Test Reason : CP Blood Pressure : / mmHG Vent. Rate : 067 BPM Atrial Rate : 067 BPM P-R Int : 158 ms QRS Dur : 090 ms QT Int : 390 ms P-R-T Axes : 006 -14 046 degrees QTc Int : 412 ms Normal sinus rhythm Normal ECG Confirmed by GURPREET WARD MD ([id number]), technical editor ASHLEY SHIELDS ([id number] on 01/08/2019 11:50:24 AM Referred By: HETAL Confirmed By:GURPREET WARD MD
--- NOTE | 2019-01-04 06:48 | RAD_ITS ---
STUDY: X-RAY CHEST REASON FOR EXAM: Male, 53 years old. Chest pain TECHNIQUE: COMPARISON: None. FINDINGS: The lungs are clear and expanded. There is no demonstrated pleural abnormality. Normal size heart. Normal mediastinum and stephen. Normal visualized pulmonary arteries. Normal visualized aortic arch and descending thoracic aorta. There is a dextroscoliosis of the thoracic spine. There is degenerative osteoarthritis of the bilateral shoulders. There is no demonstrated abnormality of the visualized soft tissue structures of the upper abdomen. RAD/Chest 1 View (Portable) IMPRESSION: Degenerative changes, as described above. No demonstrated acute cardiopulmonary process. Electronically Signed: Stephanie Castorena, at 7:07 EST Tel , Service support ,
--- NOTE | 2019-01-04 06:51 | ED.VIS.GEN ---
History of Present Illness Chief Complaint: Chest Pain Informant: Patient Onset: Today Context: Sudden Onset Timing: Continuous Current Severity: Moderate Maximum Severity: Moderate Narrative: The patient is a 53-year-old male with history of alcohol abuse and dependence along with significant coronary vascular disease presents to the emergency department with chest pain. Patient states that his pain began at about 4 AM today. He describes it as a squeezing across his left chest. He was associated with shortness of breath and nausea. He states he had the similar symptoms before when he had his prior MIs. The patient did have 2 stents placed in 2017. His course was complicated by in-stent thrombosis when he had stopped taking his Plavix. He also admits to continued alcohol use. Prior similar symptoms: Yes Recent Illness/Hospitalization: No Past Medical History - Allergies and Home Meds Allergies/Adverse Reactions: Allergies No Known Allergies Allergy (Verified 09/19/18 07:16) Primary Care Physician: Care Physician,No Primary [Primary Care Provider] - Prior records reviewed: Yes Past Medical History: - - Coronary vascular disease, alcohol abuse, hypertension Surgical History: - - PCI x 2, T+A, L inguinal hernia repair. Smoking Status: Current every day smoker - Family History Sibling Family History: Family History (Last Reviewed 04/06/18 @ 00:09 by Jourdan Alicia DO) Father Myocardial infarction, Onset Age: 36 Mother Myocardial infarction Cancer Family History: Reports: - - Patient notes a history of a sister who underwent a CABG early in life. Maternal Family History: Family History (Last Reviewed 04/06/18 @ 00:09 by Jourdan Alicia DO) Father Myocardial infarction, Onset Age: 36 Mother Myocardial infarction Cancer Family History: Reports: - - Patient notes a maternal family history of coronary disease with at least 6 stents during her lifetime. Paternal Family History: Family History (Last Reviewed 04/06/18 @ 00:09 by Jourdan Alicia DO) Father Myocardial infarction, Onset Age: 36 Mother Myocardial infarction Cancer Family History: Reports: - - Patient notes a paternal family history of heart disease, passing secondary to fatal [place] at age 36. Review of Systems General: Denies: Chills, Fever, Sweats Eyes: Denies: Visual changes - bilaterally, Diplopia ENT: Denies: Rhinorrhea, Sore throat Cardiovascular: Reports: Chest pain. Denies: Palpitations Respiratory: Reports: Dyspnea. Denies: Cough, Dyspnea on exertion Gastrointestinal: Denies: Abdominal pain, Nausea, Vomiting, Diarrhea, Melena, Hematochezia Genitourinary: Denies: Dysuria, Hematuria, Frequency Musculoskeletal: Denies: Back pain, Extremity Pain Skin: Denies: Rash, Wounds Neurological: Denies: Headache, Weakness, Numbness Physical Exam Vital Signs/Narrative: Vital Signs Temp Pulse Resp BP Pulse Ox 01/04/19 06:38 97.8 F 70 11 L 137/102 H 98 Inital Vital Signs reviewed: Yes General: Well nourished, Well developed, No Acute Distress Head: Normocephalic, Atraumatic Eyes: Perrl, EOMI ENT: Moist mucous membranes, No rhinorrhea Neck: Supple, Nontender Cardiovascular: Regular rate, Regular rhythm, No murmurs Respiratory: No distress, CTA bilaterally, Chest nontender Abdomen: Soft, Nontender, Nondistended, Normal bowel sounds Back: Nontender, Normal Inspection Extremities: Nontender, No edema Skin: Normal color, No rash Neurological: Alert, Oriented x3, Cranial nerves II-XII grossly intact, Normal Strength, Normal Sensation Psychological: Normal affect, Normal Mood Diagnostic/Tx/Re-eval Chest X-Ray - ED: 1 View, Normal, Heart, Lungs, Mediastinum - Rhythm Strip Rhythm Strip: Sinus Rhythm Rate: 80 Ectopy: None - EKG Initial EKG Interpretation: Sinus Rhythm, No Acute Injury Pattern Prior: Unchanged - Medical Decision Making The patient presents to the emergency department left-sided chest pain for the past 3-1/2 hours. Is been constant. It is not made worse with exertion. He does have history of alcohol abuse and prior UT. He states his been compliant with his medications. The patient did have a heart catheterization about 8 months ago which showed no acute abnormalities. EKG was obtained. Sinus rhythm with no acute ischemia. It is unchanged from prior. Chest x-ray was unremarkable. Patient's cardiac enzymes were negative. Other times enzymes were done, he is a constant pain for 4 hours. Patient is requesting discharge home. He is intoxicated, but is awake and alert. At this point, given his unremarkable work-up, recent catheterization, and unchanged EKG I do feel that this is reasonable. He was counseled on concerning symptoms and reasons to return. He will be discharged home. Impression 1. Chest pain 2. Alcohol intoxication ED Disposition - Plan for ED Patient: Instructions: CHEST PAIN, Uncertain Cause Referrals: Care Physician,No Primary [Primary Care Provider] -
[2019-01-04 07:06] LABS: Absolute Lymphocyte Count 2.44 X10^3/uL (0.83-4.51); Absolute Neutrophil Count 4.1 X10^3/uL (2.0-7.7); Basophil# 0.04 X10^3/uL; Basophil% 0.5 % (0-1); Eosinophil# 0.15 X10^3/uL; Hematocrit 49.5 % (40-54); Hemoglobin 17.1 g/dL (13.0-16.5); Lymphocyte # 2.44 X10^3/ul (4.0); Lymphocyte % 32.2 % (19-41); Mean Corp Hgb Conc 34.5 g/dL (32-36); Mean Corpuscular Hgb 31.7 pg (27.0-32.0); Mean Corpuscular Volume 91.8 fL (80-94); Mean Platelet Vol. 9.1 fl (6.2-12.0); Monocyte# 0.79 X10^3/uL; Monocyte% 10.4 % (0-10); NRBC Flagged by Analyzer 0 % (0-5); Neutrophil # 4.12 X10^3/uL (2.7-7.7); Neutrophil % 54.4 % (47-70); Platelet Count 303 K/mm3 (150-450); RBC Distribution Width CV 14.6 % (11.6-14.6); RBC Distribution Width SD 49.4 fl (35.1-43.9); Red Blood Count 5.39 M/mm3 (4.6-6.2); White Blood Count 7.6 K/mm3 (4.4-11.0)
[2019-01-04] MEDS: 0.9% Normal Saline 1,000 ML 150 ML IV (07:11)
[2019-01-04 07:12] VITALS: BP 134/89; PULSE 72
[2019-01-04] MEDS: Nitroglycerin SL (ED/IMG/CATH) 0.4 MG TABLET SUBLINGUAL (07:12)
[2019-01-04 07:20] LABS: Anion Gap 11 (5-15); BUN 6 mg/dL (7-18); BUN/Creat Ratio 8.2 RATIO (10-20); Calcium,Total 8.3 mg/dL (8.5-10.1); Chloride 100 mmol/L (98-107); Creatinine, Serum 0.73 mg/dL (0.70-1.30); EST Glomerular Filtration Rate 120 mL/min (>60); Est Glom Filt Rate - Afr Amer 145 mL/min (>60); Estimated Creatinine Clearance 139.87 ml/min; Glucose 75 mg/dL (74-106); Magnesium 2.2 mg/dL (1.6-2.6); Potassium 4.4 mmol/L (3.5-5.1); Sodium Level 134 mmol/L (136-145)
[2019-01-04 08:02] VITALS: BP 138/76; PULSE 71; RESP 16; O2SAT 97
== END 2019-01-04 08:04 | disposition home or self-care (01) ==
LOC: ED 06:55
PROVIDERS: Emergency Provider Emergency Medicine
DX: R07.9 Chest pain, unspecified (principal); F10.129 Alcohol abuse with intoxication, unspecified; Y90.9 Presence of alcohol in blood, level not specified; I10 Essential (primary) hypertension; I25.10 Atherosclerotic heart disease of native coronary artery without angina pectoris; I25.2 Old myocardial infarction; Z95.5 Presence of coronary angioplasty implant and graft; Z79.02 Long term (current) use of antithrombotics/antiplatelets; Z79.82 Long term (current) use of aspirin; Z79.899 Other long term (current) drug therapy; F17.200 Nicotine dependence, unspecified, uncomplicated
CPT/HCPCS: 71045; 80048; 80320; 83735; 84484; 85025; 93005; 96360; 99285; J7030; A4216; G0480

== ENCOUNTER 2019-01-07 06:17 | Emergency (ER) | payer BC, SELFPAY ==
[2017-01-12 13:36] VITALS: BMI 26.6
[2019-01-07 06:18] VITALS: BP 132/86; PULSE 130; RESP 24; TEMP 36.7; O2SAT 95; BMI 22.8
--- NOTE | 2019-01-07 06:29 | EKG12_ITS ---
Test Reason : DYSRHYTHMIA Blood Pressure : / mmHG Vent. Rate : 123 BPM Atrial Rate : 123 BPM P-R Int : 142 ms QRS Dur : 076 ms QT Int : 314 ms P-R-T Axes : 069 -18 085 degrees QTc Int : 449 ms Sinus tachycardia Left ventricular hypertrophy with repolarization abnormality Abnormal ECG Confirmed by ED VENTURA, GURPREET ([id number]), business editor ASHLEY SHIELDS ([id number]) on 01/08/2019 2:51:35 PM Referred By: BB Confirmed By:GURPREET WARD MD
--- NOTE | 2019-01-07 06:30 | RAD_ITS ---
STUDY: X-RAY CHEST REASON FOR EXAM: Male, 53 years old. Shortness of breath. TECHNIQUE: Single AP portable view of the chest. COMPARISON: 01/04/2019. FINDINGS: The lungs are clear and expanded. There is no demonstrated pleural abnormality. Normal size heart. Normal mediastinum and stephen. Normal visualized pulmonary arteries. Normal visualized aortic arch and descending thoracic aorta. There are diffuse degenerative changes of the visualized thoracic spine. There is degenerative osteoarthritis of the bilateral shoulders. There is no demonstrated abnormality of the visualized soft tissue structures of the upper abdomen. RAD/Chest 1 View (Portable) IMPRESSION: No acute cardiopulmonary disease. Electronically Signed: Deedee Ayala MD at 7:17 EST , Service support ,
--- NOTE | 2019-01-07 06:30 | CT_ITS ---
STUDY: CT SOFT TISSUE NECK WITH CONTRAST REASON FOR EXAM: Male, 53 years old. Shortness of breath. RADIATION DOSAGE (If Supplied By Facility): CTDIvol = ( 20.19 ) mGy, DLP = ( 660.69 ) mGycm TECHNIQUE: The patient was scanned in a multi-detector CT scanner. High resolution transaxial imaging was performed following intravenous administration of IV Isovue 370 75. Sagittal and coronal images were reconstructed. Individualized dose optimization techniques were used for this CT. COMPARISON: CT chest dated 04/08/2018. FINDINGS: Normal bilateral parotid glands. Normal bilateral rubber mill tender spaces. Normal bilateral parapharyngeal spaces. Normal bilateral carotid spaces. Normal bilateral sublingual and submandibular glands and spaces. Normal visualized nasopharynx. Normal retropharyngeal space. There is increasing perivertebral space at the proximal C6 and C5 levels. Normal visualized bilateral faucial tonsils. The visualized tongue, tongue base and oropharynx are normal. There is a distal left lower neck lymph node just medial to the sternocleidomastoid musculature measuring 1.9 cm x 0.9 cm. There are few, left-sided submandibular lymph nodes averaging 2.2 x 0.6 cm. There is a large lobular mass identified along the posterior larynx just above the level of the posterior vocal cords with decreased attenuation slightly heterogeneous. This measures approximately 3.5 cm in transverse dimension by 2.1 cm in AP dimension and extends over 3.0 cm in craniocaudal dimension. There is hazy appearance of the perilaryngeal fat plane, combination of findings suggestive of neoplastic process versus infectious etiology/early abscess formation. There is no abnormal contrast enhancement. Normal epiglottis, bilateral vallecula and hypopharynx. The pre-epiglottic and paraglottic adipose spaces are normal. Normal visualized bilateral piriform sinuses, aryepiglottic folds, vocal cords, and arytenoid-cricoid articulations. Normal bilateral lobes of the thyroid gland. There is evidence of a right-sided peritracheal lymph node measuring 3.0 x 2.1 cm and concerning for mediastinal lymphadenopathy, new or progressed in the interval. There are areas of nonspecific thickening of the esophageal wall. There are areas of mild subpleural and centrilobular emphysematous changes, remainder of the lung apices are clear. Normal visualized paranasal sinuses. Normal visualized cervical spine. CT/Soft Tissue Neck WITH Contrast IMPRESSION: Findings concerning for a mass involving the posterior larynx. Less likely, differential diagnosis includes infectious process/early abscess formation. Right-sided mediastinal lymphadenopathy, new or progressed in the interval. If indicated, follow-up CT evaluation of the chest in nonacute setting is recommended. Electronically Signed: Deedee Ayala MD at 7:34 EST , Service support ,
--- NOTE | 2019-01-07 06:31 | ED.DCSUM_ITS ---
History of Present Illness Chief Complaint: Shortness of Breath Informant: Patient Onset: Yesterday - around 6-8 hrs ago Activity at onset: - - grad onset, worsening Timing: Continuous Quality: - - throat swelling Current Severity: Moderate Maximum Severity: Moderate Worsened by: Lying flat Relieved by: - - sitting up Associated Symptoms: Cough - w/ occ brown sputum x 1 week, Sore throat - severe odynophagia. Negative for: Ear pain, Fever Chest Pain: None Narrative: Patient states he has had decreased appetite for the last day or 2 and just did not feel well. He has had a cough for the past week or so. No dyspnea until last night he got worse overnight when he tries to lay down, it feels worse as does his sore throat. It feels like things are swelling. He thinks he is short of breath because of whatever is going on in his throat, does not necessarily feel anything in his chest/lungs. He has been swallowing water okay but then shortly thereafter vomits it up, and as a result has been vomiting a lot. Things are passing through. He did not eat anything yesterday, so he denies the possibility of getting a piece of food stuck in his esophagus. He denies any abdominal pain, chest pain, or upper back pain. - Past Medical History (1) Atherosclerosis of coronary artery of [place] heart with angina pectoris Status: Chronic Comment: BMS-Prox and Distal RCA 12/23/16 (2) Essential (primary) hypertension Status: Chronic (3) HLD (hyperlipidemia) Status: Chronic Past Medical History - Allergies and Home Meds Allergies/Adverse Reactions: Allergies No Known Allergies Allergy (Verified 01/07/19 06:20) Primary Care Physician: Care Physician,No Primary [Primary Care Provider] - Surgical History: - - PCI x 2, T+A, L inguinal hernia repair. Lives: Alone Smoking Status: Current every day smoker Drugs: None - Family History Sibling Family History: Family History (Last Reviewed 04/06/18 @ 00:09 by Jourdan Alicia DO) Father Myocardial infarction, Onset Age: 36 Mother Myocardial infarction Cancer Family History: Reports: - - Patient notes a history of a sister who underwent a CABG early in life. Maternal Family History: Family History (Last Reviewed 04/06/18 @ 00:09 by Jourdan Alicia DO) Father Myocardial infarction, Onset Age: 36 Mother Myocardial infarction Cancer Family History: Reports: - - Patient notes a maternal family history of coronary disease with at least 6 stents during her lifetime. Paternal Family History: Family History (Last Reviewed 04/06/18 @ 00:09 by Jourdan Alicia DO) Father Myocardial infarction, Onset Age: 36 Mother Myocardial infarction Cancer Family History: Reports: - - Patient notes a paternal family history of heart disease, passing secondary to fatal [place] at age 36. Review of Systems General: Reports: Malaise - w/ decreased appetite/po intake x 1.5 d. Denies: Chills, Fever, Sweats Eyes: Denies: Visual changes - bilaterally, Diplopia ENT: Reports: Sore throat. Denies: Bilateral ear pain, Rhinorrhea Cardiovascular: Denies: Chest pain, Palpitations Respiratory: Reports: Dyspnea, Cough, Sputum, Orthopnea - due to worsening throat sx when lying supine. Denies: Dyspnea on exertion Gastrointestinal: Reports: Nausea, Vomiting - With streaks of blood within the last couple. Denies: Abdominal pain, Diarrhea, Melena, Hematochezia Genitourinary: Denies: Dysuria, Hematuria, Frequency Musculoskeletal: Denies: Back pain, Swelling, Extremity Pain Skin: Denies: Rash, Wounds Neurological: Denies: Headache, Weakness, Numbness Physical Exam Vital Signs/Narrative: Vital Signs Temp Pulse Resp BP Pulse Ox 01/07/19 06:18 98.1 F 130 H 24 H 132/86 H 95 Inital Vital Signs reviewed: Yes General: Well nourished, Well developed, No Acute Distress Head: Normocephalic, Atraumatic Eyes: Perrl, EOMI ENT: Moist mucous membranes, No rhinorrhea, - - Posterior oropharynx diffusely erythematous, no clear asymmetry, no trismus, no sublingual edema/tenderness/fullness, no stridor. No resp distress when opening mouth for throat exam. Neck: Supple, Nontender, No lymphadenopathy Cardiovascular: Regular rate, Regular rhythm, No murmurs, Tachycardia Respiratory: No distress, CTA bilaterally, Chest nontender Abdomen: Soft, Nondistended, Normal bowel sounds, Tender - Mild epigastrium only. Negative for: Guarding, Rebound tenderness, Pulsatile mass Back: Nontender, Normal Inspection. Negative for: CVA tenderness Extremities: Nontender, No edema. Negative for: Calf Tenderness Skin: Normal color, No rash, No Trauma Neurological: Alert, Oriented x3, Cranial nerves II-XII grossly intact, Normal Strength, Normal Sensation Psychological: Normal affect, Normal Mood Diagnostic/Tx/Re-eval Chest X-Ray - ED: 1 View, Read by ED Physician, Normal, Heart, Lungs, Mediastinum, No Acute Disease Impressions Chest X-Ray 01/07/19 06:30 IMPRESSION: No acute cardiopulmonary disease. Electronically Signed: Deedee Ayala MD at 7:17 EST , Service support , Soft Tissue Neck CT 01/07/19 06:30 IMPRESSION: Findings concerning for a mass involving the posterior larynx. Less likely, differential diagnosis includes infectious process/early abscess formation. Right-sided mediastinal lymphadenopathy, new or progressed in the interval. If indicated, follow-up CT evaluation of the chest in nonacute setting is recommended. Electronically Signed: Deedee Ayala MD at 7:34 EST , Service support , 01/07/19 06:30 Chest 1 View (Portable) [RAD] Stat Soft Tissue Neck WITH Contrast [CT] Stat Laboratory Results 01/07/19 01/07/19 06:25 06:25 WBC 19.7 H RBC 5.69 Hgb 17.9 H Hct 51.4 MCV 90.3 MCH 31.5 MCHC 34.8 RDW Std Deviation 47.2 H RDW Coeff of Radha 14.2 Plt Count 299 MPV 9.8 Immature Gran % (Auto) 0.500 Neut % (Auto) 90.9 H Lymph % (Auto) 4.7 L Davidson % (Auto) 3.6 Eos % (Auto) 0.1 Baso % (Auto) 0.2 Absolute Neuts (auto) 17.9 H Absolute Lymphs (auto) 0.92 Nucleated RBC % 0 Sodium 128 L Potassium 4.2 Chloride 90 L Carbon Dioxide 21.0 Anion Gap 17 H BUN 6 L Creatinine 1.06 Estim Creat Clear Calc 94.39 Est GFR (MDRD) Af Amer 94 Est GFR (MDRD) Non-Af 78 BUN/Creatinine Ratio 5.7 L Glucose 129 H Calcium 9.4 Troponin I < 0.015 - Rhythm Strip Rhythm Strip: Sinus Tach Rate: 120 Ectopy: None - EKG Initial EKG Interpretation: No Acute Injury Pattern, Sinus Tachycardia Treatment - Dyspnea: Steroid, - - zofran, toradol - Medical Decision Making Chest x-ray appears unremarkable, his mediastinum appears within normal limits and narrow. I gave him Decadron and Toradol prior to imaging, I sent him for CT of the neck soft tissue, out of concern for an abscess. Of note, the epiglottis appears normal on the CT. Awaiting imaging. Patient is requesting something for anxiety, he apparently is an alcoholic and cannot stand being in the hospital [address] confirms normal epiglottis and hypopharynx. There is a 3.5 x 2.1 cm x 3 cm craniocaudal dimension mass versus abscess in the posterior larynx. This is likely causing his symptoms. I suspect it is infectious given his leukocytosis and quick onset of symptoms. Patient confirms that before yesterday evening he did not have any of the symptoms. He has right peritracheal and mediastinal lymphadenopathy. Unasyn is ordered. The patient is stable and conversive. He is worried about going home but does not want to stay in the hospital although he is willing. Unfortunately we do not have any otolaryngology coverage at this hospital for the next 24 hours, it is Tuesday morning. Therefore I feel he should be transferred to another hospital, since he should be evaluated as soon as possible by an customer care specialist. Unknown if this needs drained, but it should be looked at by a specialist further. Patient is amenable and want to stay as close as possible. He prefers [facility] in [place]. I spoke with the transfer center, and when the attendant called me back, she said that she spoke with her customer care specialist and he refused to see the patient because he has never heard of that. Patient then chose [facility] in [place], they accepted the stevenson rios and he was transferred there. ED Disposition - Plan for ED Patient: Disposition: [facility] Diagnosis: Abscess of larynx Referrals: Care Physician,No Primary [Primary Care Provider] -
[2019-01-07] MEDS: Ketorolac 15 MG/ML Vial IV (06:41)
[2019-01-07] MEDS: dexAMETHasone 10 MG/ML Vial IV (06:42)
[2019-01-07] MEDS: Ondansetron 4 MG/2 ML Vial IV (06:52)
[2019-01-07 07:00] LABS: Absolute Lymphocyte Count 0.92 X10^3/uL (0.83-4.51); Absolute Neutrophil Count 17.9 X10^3/uL (2.0-7.7); Basophil# 0.04 X10^3/uL; Basophil% 0.2 % (0-1); Eosinophil# 0.02 X10^3/uL; Eosinophils% 0.1 % (0-5); Hematocrit 51.4 % (40-54); Hemoglobin 17.9 g/dL (13.0-16.5); Lymphocyte # 0.92 X10^3/ul (4.0); Lymphocyte % 4.7 % (19-41); Mean Corp Hgb Conc 34.8 g/dL (32-36); Mean Corpuscular Hgb 31.5 pg (27.0-32.0); Mean Corpuscular Volume 90.3 fL (80-94); Mean Platelet Vol. 9.8 fl (6.2-12.0); Monocyte% 3.6 % (0-10); NRBC Flagged by Analyzer 0 % (0-5); Neutrophil # 17.89 X10^3/uL (2.7-7.7); Neutrophil % 90.9 % (47-70); Platelet Count 299 K/mm3 (150-450); RBC Distribution Width CV 14.2 % (11.6-14.6); RBC Distribution Width SD 47.2 fl (35.1-43.9); Red Blood Count 5.69 M/mm3 (4.6-6.2); White Blood Count 19.7 K/mm3 (4.4-11.0)
[2019-01-07 07:03] LABS: Anion Gap 17 (5-15); BUN 6 mg/dL (7-18); BUN/Creat Ratio 5.7 RATIO (10-20); Calcium,Total 9.4 mg/dL (8.5-10.1); Chloride 90 mmol/L (98-107); Creatinine, Serum 1.06 mg/dL (0.70-1.30); EST Glomerular Filtration Rate 78 mL/min (>60); Est Glom Filt Rate - Afr Amer 94 mL/min (>60); Estimated Creatinine Clearance 94.39 ml/min; Glucose 129 mg/dL (74-106); Potassium 4.2 mmol/L (3.5-5.1); Sodium Level 128 mmol/L (136-145)
[2019-01-07 07:13] VITALS: BP 121/95; PULSE 92; RESP 49; O2SAT 100
[2019-01-07] MEDS: LORazepam 2 MG/ML Syringe 0.5 MG IV (07:13)
[2019-01-07] MEDS: Morphine 4 MG/ML Syringe IV (08:08)
[2019-01-07 09:12] VITALS: BP 141/101; PULSE 106; RESP 22; O2SAT 93
[2019-01-07 09:18] VITALS: BP 138/93; PULSE 108; RESP 21; O2SAT 93
== END 2019-01-07 09:35 | disposition short-term general hospital (02) ==
PROVIDERS: Emergency Provider Emergency Medicine
DX: J38.7 Other diseases of larynx (principal); I25.10 Atherosclerotic heart disease of native coronary artery without angina pectoris; I10 Essential (primary) hypertension; E78.5 Hyperlipidemia, unspecified; Z79.82 Long term (current) use of aspirin; Z79.899 Other long term (current) drug therapy; F17.200 Nicotine dependence, unspecified, uncomplicated
CPT/HCPCS: 70491; 71045; 80048; 84484; 85025; 93005; 96361; 96365; 96374; 96375; 99285; J7030; Q9967; A4216; J0295; J2405

== ENCOUNTER 2019-03-26 07:06 | Emergency (ER) | payer BC, SELFPAY ==
[2017-01-12 13:36] VITALS: BMI 26.6
[2019-03-26 07:08] VITALS: BP 137/73; PULSE 85; RESP 17; TEMP 36.1; O2SAT 97; BMI 23.3
--- NOTE | 2019-03-26 07:20 | ED.VIS.GEN ---
History of Present Illness Chief Complaint: Anxiety Detail of Chief Complaint: Anxiety amped up Informant: Patient Onset: Days - The past 3 days Context: Sudden Onset Timing: Continuous Quality: Anxiousness Location: Generalized Current Severity: Severe Maximum Severity: Severe Worsened by: Nothing Relieved by: Nothing Associated Symptoms: None Narrative: Patient is a middle-age male who admits to drinking 6-8 beers a day. He is a smoker of 1 to 1.5 packs/day. He presents because of anxiety. He states he did have a can of beer 1 hour prior to presentation. He states a friend drove him to the emergency department. He feels anxious. There is nothing that he can attribute to causing this. Nothing has exacerbated his symptoms. He states he is scheduled for a CAT scan. Review of prior records reveals he has enlarged lymph nodes and there is concern for a mass posterior larynx that was noted on a CT of the neck. Patient has not followed up. Patient states he is presently working out of state at [facility]. He states he resides in [place]. He denies fever, chills night sweats. Nuys weight gain or weight loss. There is been no change in voice. He has no other complaints. Prior similar symptoms: No Recent Illness/Hospitalization: No - Past Medical History (1) Acute pulmonary embolism Status: Acute (2) NSTEMI (non-ST elevated myocardial infarction) Status: Acute (3) Alcohol abuse Status: Chronic (4) Essential (primary) hypertension Status: Chronic (5) HLD (hyperlipidemia) Status: Chronic (6) History of coronary artery stent placement Status: Chronic Comment: BMS-Prox and Distal RCA 12/23/16 (7) Nicotine dependence Status: Chronic Past Medical History - Allergies and Home Meds Allergies/Adverse Reactions: Allergies No Known Allergies Allergy (Verified 03/26/19 07:07) Primary Care Physician: Care Physician,No Primary [Primary Care Provider] - Prior records reviewed: Yes - Lung mass posterior larynx with lymphadenopathy Surgical History: - - PCI x 2, T+A, L inguinal hernia repair. Lives: Alone Smoking Status: Current every day smoker Alcohol: Heavy Drugs: None - Family History Sibling Family History: Family History (Last Reviewed 04/06/18 @ 00:09 by Jourdan Alicia DO) Father Myocardial infarction, Onset Age: 36 Mother Myocardial infarction Cancer Family History: Reports: - - Patient notes a history of a sister who underwent a CABG early in life. Maternal Family History: Family History (Last Reviewed 04/06/18 @ 00:09 by Jourdan Alicia DO) Father Myocardial infarction, Onset Age: 36 Mother Myocardial infarction Cancer Family History: Reports: - - Patient notes a maternal family history of coronary disease with at least 6 stents during her lifetime. Paternal Family History: Family History (Last Reviewed 04/06/18 @ 00:09 by Jourdan Alicia DO) Father Myocardial infarction, Onset Age: 36 Mother Myocardial infarction Cancer Family History: Reports: - - Patient notes a paternal family history of heart disease, passing secondary to fatal [place] at age 36. Review of Systems General: Denies: Chills, Fever, Malaise, Sweats, Weight loss ENT: Reports: - - No dysphonia or dysphasia. Denies: Bilateral ear pain, Rhinorrhea, Sore throat Cardiovascular: Denies: Chest pain, Palpitations Respiratory: Reports: Cough. Denies: Dyspnea, Sputum, Dyspnea on exertion, Orthopnea Gastrointestinal: Denies: Abdominal pain, Nausea, Vomiting, Diarrhea, Melena, Hematochezia Genitourinary: Denies: Dysuria, Hematuria, Frequency Musculoskeletal: Denies: Myalgias, Arthralgias, Neck pain, Back pain, Swelling, Extremity Pain, -, - Neurological: Denies: Headache, Parasthesia, Numbness Psych: Reports: Anxiety. Denies: Depression, Suicidal thoughts Hematologic: Denies: Easy bruising, Easy bleeding Physical Exam Vital Signs/Narrative: Vital Signs Temp Pulse Resp BP Pulse Ox 03/26/19 07:08 96.9 F L 85 17 137/73 H 97 Inital Vital Signs reviewed: Yes General: Well nourished, Well developed, No Acute Distress Head: Normocephalic, Atraumatic Eyes: Perrl, EOMI. Negative for: Pale conjunctiva, Scleral icterus ENT: Moist mucous membranes, No rhinorrhea, - - Trachea is midline. There is no stridor noted. Neck: Supple, Nontender, No JVD. Negative for: No lymphadenopathy Cardiovascular: Regular rate, Regular rhythm, No murmurs, Normal S1, Normal S2 Respiratory: No distress, CTA bilaterally, Chest nontender Abdomen: Soft, Nontender, Nondistended, Normal bowel sounds Skin: Normal color, No rash Neurological: Alert, Oriented x3, Cranial nerves II-XII grossly intact, Normal Strength, Normal Sensation Psychological: Normal affect, Normal Mood Diagnostic/Tx/Re-eval - Medical Decision Making Patient was treated with Ativan p.o. Patient was reassessed at 0800. His symptoms have improved. He was informed that he will be referred to the counseling center. Questions were asked regarding the nodule noted on CT in January. He states he has a follow-up CT. He cannot tell me if the nodules were biopsied or not. He was informed the importance to follow-up especially since he is a smoker. ED Disposition - Plan for ED Patient: Disposition: Home or Assisted Living Diagnosis: Anxiety reaction Instructions: Anxiety Reaction Referrals: Care Physician,No Primary [Primary Care Provider] - Counseling,Center [GROUP OF PHYSICIANS] - As soon as possible
[2019-03-26] MEDS: LORazepam 0.5 MG Tablet PO (07:32)
--- NOTE | 2019-03-26 07:57 | ED.RN ---
PT YELLING FOR STAFF. PT REMINDED HE HAS A CALL LIGHT ATTACHED TO HIS SIDERAIL. THIS RN IN ROOM. NURY BRITO RN ALSO IN ROOM AFTER
--- NOTE | 2019-03-26 08:23 | ED.RN ---
PT YELLING AND BEING VERBALLY AGGRESSIVE AND ABUSIVE WITH STAFF AT [facility]. PT IN STAFF FACE YELLING FUCK YOU BITCHES. SECURITY CALLED. PT AWARE HE IS INTOXICATED AND NOT TO BE DRIVING. PT NOT COOPERATIVE AND NOT RECEPTIVE TO STAFF SUGGESSTIONS
--- NOTE | 2019-03-26 08:27 | ED.RN ---
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
== END 2019-03-26 08:27 | disposition home or self-care (01) ==
PROVIDERS: Emergency Provider Emergency Medicine
DX: F41.1 Generalized anxiety disorder (principal); R05 Cough; I25.2 Old myocardial infarction; I10 Essential (primary) hypertension; E78.5 Hyperlipidemia, unspecified; Z86.711 Personal history of pulmonary embolism; Z95.5 Presence of coronary angioplasty implant and graft; Z79.82 Long term (current) use of aspirin; Z79.02 Long term (current) use of antithrombotics/antiplatelets; Z79.899 Other long term (current) drug therapy; F10.10 Alcohol abuse, uncomplicated; F17.200 Nicotine dependence, unspecified, uncomplicated
CPT/HCPCS: 99283

== ENCOUNTER 2019-03-27 13:59 | Inpatient (IN) | payer BC, SELFPAY ==
[2017-01-12 13:36] VITALS: BMI 26.6
[2019-03-26 07:08] VITALS: BMI 23.3
[2019-03-27] VITALS (12 sets, daily range): BP systolic 101–138; BP diastolic 72–106; PULSE 76–136; RESP 18–24; TEMP 36.3–36.7; O2SAT 90–98; BMI 24.0; BMI 22.5; BMI 22.6
--- NOTE | 2019-03-27 14:27 | EKG12_ITS ---
Test Reason : Blood Pressure : / mmHG Vent. Rate : 121 BPM Atrial Rate : 286 BPM P-R Int : 000 ms QRS Dur : 086 ms QT Int : 322 ms P-R-T Axes : 000 -26 064 degrees QTc Int : 457 ms Atrial flutter with variable A-V block Nonspecific ST abnormality Abnormal ECG Confirmed by ETIENNE BERRIOS ([id number]), supervising editor news reel FEMI AKHTAR ([id number]) on 03/29/2019 9:41:45 AM Referred By: JENNIFER Confirmed By:ETIENNE BERRIOS
[2019-03-27] MEDS: 0.9% Normal Saline 1,000 ML 1000 ML IV (14:37)
[2019-03-27 14:38] LABS: Absolute Lymphocyte Count 2.67 X10^3/uL (0.83-4.51); Absolute Neutrophil Count 6.2 X10^3/uL (2.0-7.7); Basophil# 0.02 X10^3/uL; Basophil% 0.2 % (0-1); Eosinophil# 0.09 X10^3/uL; Eosinophils% 0.9 % (0-5); Hematocrit 46.3 % (40-54); Hemoglobin 15.7 g/dL (13.0-16.5); Lymphocyte # 2.67 X10^3/ul (4.0); Lymphocyte % 27.9 % (19-41); Mean Corp Hgb Conc 33.9 g/dL (32-36); Mean Corpuscular Hgb 32.2 pg (27.0-32.0); Mean Corpuscular Volume 94.9 fL (80-94); Mean Platelet Vol. 9.5 fl (6.2-12.0); Monocyte# 0.57 X10^3/uL; NRBC Flagged by Analyzer 0 % (0-5); Neutrophil # 6.16 X10^3/uL (2.7-7.7); Neutrophil % 64.4 % (47-70); Platelet Count 283 K/mm3 (150-450); RBC Distribution Width CV 13.2 % (11.6-14.6); RBC Distribution Width SD 46.5 fl (35.1-43.9); Red Blood Count 4.88 M/mm3 (4.6-6.2); White Blood Count 9.6 K/mm3 (4.4-11.0)
--- NOTE | 2019-03-27 14:40 | NURSING ---
CHEMISTRIES HEMOLIZED
--- NOTE | 2019-03-27 14:45 | ED.DCSUM_ITS ---
- ER Visit Summary Date of Service: 03/27/19 Chief Complaint: Chest pain History of Present Illness: The patient is a 53 M who presents with chest pain that has been getting worse over the past 2 to 3 days. Patient states that today it felt like it was squeezing in his chest. Patient states he was playing video games on his tablet when it began today. Patient admits to daily alcohol use but does not know exactly how much he drank today. Patient also has a smoker. Patient states nothing makes his pain better or worse. Patient does admit to some shortness of breath and cough. Patient also admits to some subjective chills. Patient denies any nausea or vomiting. Patient denies any diaphoresis. Physical Examination: Vital signs are stable except for tachycardia of 116. Patient is afebrile. Patient is in no acute distress. Oral mucosa is pink and moist. Neck is supple. Trachea is midline. There is no JVD. Heart was regular and tachycardic. Lungs are clear and equal bilaterally. Abdomen is soft. Bowel sounds are normal. There is no tenderness. Cranial nerves II through XII are intact. There are no focal motor or sensory deficits noted. Test Results: EKG showed atrial fibrillation with a rate of 121. There are no acute ST or T wave changes. The atrial fibrillation is new compared to previous EKGs. Patient states that a exterior door installer once told him he was in atrial fibrillation but when he got to the hospital they told him he was not in atrial fibrillation. Patient is not currently on any medications for atrial fibrillation. CBC, basic metabolic profile, and troponin were obtained and were essentially within normal limits. Emergency Department Course and Treatment: Patient was given IV fluids. Patient was given a dose of Cardizem. Patient was also ordered a dose of Vistaril but he refused. Case was discussed with the hospitalist. He will admit the patient to his service. Patient understands and is agreeable with the plan. All questions were answered. Disposition: Admit to hospital Impression: 1. New onset atrial fibrillation with rapid ventricular response 2. Alcohol abuse This note was generated with [employer] software. It may contain incorrect words, spelling, and punctuation that were not noted in review of the chart prior to signing ED Disposition - Plan for ED Patient: Disposition: Acute Care Hospital [facility] Diagnosis: New onset atrial fibrillation, Alcohol abuse Referrals: Care Physician,No Primary [Primary Care Provider] -
--- NOTE | 2019-03-27 15:05 | RAD_ITS ---
STUDY: X-RAY CHEST REASON FOR EXAM: Male, 53 years old. Chest pain TECHNIQUE: PA and lateral views of the chest. COMPARISON: Comparison is made with prior study dated January 07, 2019. FINDINGS: EKG electrodes are seen. There now is evidence of increased markings in the anterior aspect of the right upper lobe suggestive of early right upper lobe infiltrate. Follow-up is recommended. The lungs are clear and expanded. There is no demonstrated pleural abnormality. Normal size heart. Prominence of the right hilum Normal visualized pulmonary arteries. Normal visualized aortic arch and descending thoracic aorta. Normal visualized thoracic spine. Normal visualized ribs, clavicles, and shoulders. There is no demonstrated abnormality of the visualized soft tissue structures of the upper abdomen. RAD/Chest PA and Lateral IMPRESSION: Hyperinflation. Increased markings in the anterior aspect of the right upper lobe with prominence of the right hilum. Radiographic follow-up is recommended. Electronically Signed: Tanner Jiménez, at 15:34 EST , Service support ,
[2019-03-27 15:18] LABS: Anion Gap 10 (5-15); BUN 6 mg/dL (7-18); BUN/Creat Ratio 8.4 RATIO (10-20); Calcium,Total 7.9 mg/dL (8.5-10.1); Chloride 105 mmol/L (98-107); Creatinine, Serum 0.71 mg/dL (0.70-1.30); EST Glomerular Filtration Rate 123 mL/min (>60); Est Glom Filt Rate - Afr Amer 148 mL/min (>60); Estimated Creatinine Clearance 143.81 ml/min; Glucose 81 mg/dL (74-106); Sodium Level 138 mmol/L (136-145)
[2019-03-27] MEDS: dilTIAZem 25 MG/5 ML Vial IV BOLUS (17:42)
--- NOTE | 2019-03-27 17:48 | NURSING ---
PCU NEW ONSET A FIB WITH [facility] SKYLER
--- NOTE | 2019-03-27 18:12 | HP.PCM_ITS ---
<Mary Menjivar - Last Filed: 03/27/19 18:29> Problem List (1) New onset atrial fibrillation Status: Acute (2) Essential (primary) hypertension Status: Chronic (3) Nicotine dependence Status: Chronic (4) Acute pulmonary embolism Status: Resolved (5) HLD (hyperlipidemia) Status: Chronic (6) Alcohol abuse Status: Chronic (7) NSTEMI (non-ST elevated myocardial infarction) Status: Chronic (8) Atherosclerosis of coronary artery of [place] heart with angina pectoris Status: Chronic Comment: BMS-Prox and Distal RCA 12/23/16 (9) History of coronary artery stent placement Status: Chronic Comment: BMS-Prox and Distal RCA 12/23/16 History of Present Illness Date of Admission: 03/27/19 Chief Complaint: Chest pain. The patient is a 53 year old M who presents emergency room due to chest pain. Patient reports this is been ongoing for the past few days. He describes a pressure, squeezing sensation which is continuous. He denies pain radiation, shortness of breath or other associated symptoms. Patient reports he works in [place] and was recently transferred by [facility] to an ER and [place]. He states he was told he was in atrial fibrillation. He left the ER AMA without further evaluation. Patient was seen yesterday in the emergency room for anxiety, he was treated with oral Ativan and referred to counseling center. Patient has a history of alcohol abuse and states he last drank this morning, he becomes upset when asked how much he drinks and states he does not remember how much he drank this morning. He does state he typically drinks 4-12 beers per day. Patient appears very anxious in ER, threatening to smoke a cigarette out of his pocket if he does not get a nicotine patch and asking when he can eat. Patient has a past medical history of PE, CAD status post PCI x2, hypertension, hyperlipidemia, alcohol dependence, tobacco abuse, depression, anxiety. Past Medical History Past Medical History (Chronic Problems): Chronic Problems (Last Updated 04/10/18 @ 11:33 by Raine Huber) Essential (primary) hypertension (Chronic) Nicotine dependence (Chronic) HLD (hyperlipidemia) (Chronic) Alcohol abuse (Chronic) NSTEMI (non-ST elevated myocardial infarction) (Chronic 04/07/18) Atherosclerosis of coronary artery of [place] heart with angina pectoris (Chronic) BMS-Prox and Distal RCA 12/23/16 History of coronary artery stent placement (Chronic 12/23/16) BMS-Prox and Distal RCA 12/23/16 Medical History: Medical History (Last Updated 04/10/18 @ 11:34 by Raine Huber) Essential (primary) hypertension (Chronic) I10 Nicotine dependence (Chronic) F17.200 Acute pulmonary embolism (Acute) Onset Date: 04/08/18 I26.99 Acute, mixed level of activity, alcohol withdrawal delirium (Acute) F10.231 HLD (hyperlipidemia) (Chronic) E78.5 Alcohol abuse (Chronic) F10.10 NSTEMI (non-ST elevated myocardial infarction) (Acute) Onset Date: 04/07/18 I21.4 Atherosclerosis of coronary artery of [place] heart with angina pectoris (Chronic) I25.119 BMS-Prox and Distal RCA 12/23/16 Anxiety F41.9 STEMI (ST elevation myocardial infarction) (Resolved) 12/23/16 STEMI (ST elevation myocardial infarction) I21.3 12/23/16 Noncompliance (Inactive) Z91.19 Allergies No Known Allergies Allergy (Verified 03/27/19 14:00) Home Medications: Ambulatory Orders Medication Instructions Recorded Aspirin [Aspirin, Baby] 81 mg PO DAILY@0800 10/03/17 Fluticasone 0.05% [Flonase Nasal 1 spray NASAL DAILY #1 nasal.sry 07/23/18 [place]] atorvastatin 80 mg tablet 20 mg PO DAILY #90 tab 01/18/19 clopidogrel 75 mg tablet 75 mg PO DAILY #30 tab 02/05/19 metoprolol succinate 25 mg 25 mg PO DAILY #90 tab 03/01/19 tablet,extended release 24 hr Surgical History: Surgical History (Last Updated 04/10/18 @ 11:33 by Raine Huber) History of coronary artery stent placement (Chronic) Onset Date: 12/23/16 Z95.5 BMS-Prox and Distal RCA 12/23/16 History of left heart catheterization Onset Date: 04/07/18 Z98.890 12/23/16- PCI with BM stent to prox RCA & distal RCA; 01/12/17- patent BM stents; Surgical History: - - PCI x 2, T+A, L inguinal hernia repair. Psychiatric History: Anxiety, Depression Lives: Alone Smoking Status: Current every day smoker Tobacco Use: Cigarettes Alcohol: Heavy Drugs: None - *Family History Sibling Family History: Family History (Last Reviewed 03/27/19 @ 18:19 by BETH Vogel) Father Myocardial infarction, Onset Age: 36 Mother Myocardial infarction Cancer History Items: - - Patient notes a history of a sister who underwent a CABG early in life. Maternal Family History: Family History (Last Reviewed 03/27/19 @ 18:19 by BETH Vogel) Father Myocardial infarction, Onset Age: 36 Mother Myocardial infarction Cancer History Items: - - Patient notes a maternal family history of coronary disease with at least 6 stents during her lifetime. Paternal Family History: Family History (Last Reviewed 03/27/19 @ 18:19 by BETH Vogel) Father Myocardial infarction, Onset Age: 36 Mother Myocardial infarction Cancer History Items: - - Patient notes a paternal family history of heart disease, passing secondary to fatal NE at age 36. Review of Systems Constitutional: Denies: Chills, Fever, Weight Change HEENT: Denies: Head Aches, Sinus Congestion, Sinus Drainage Cardiovascular: Reports: Chest Pain, Chest Tightness. Denies: Light Headedness, Palpitations, Syncope Respiratory: Denies: Cough, Shortness of breath at rest, Sputum production Gastrointestinal: Denies: Abdominal Pain, Nausea, Vomiting Genitourinary: Denies: Dysuria Musculoskeletal: Denies: Joint Pain, Joint Tenderness Skin: Denies: Rash, Wounds Neurological: Denies: Numbness, Tingling, Focal weakness Psychiatric: Reports: Anxiety, Depression. Denies: Homicidal Ideations, Suicidal Ideations Hematologic/ Lymphatic: Denies: Easy Bruising, Easy Bleeding VTE Information - Inpt Only VTE Present on Admission: No VTE Mechan Device Prophylaxis: None VTE Pharm Prophylaxis ordered?: Yes Patient Problems: Active and Suspected Problems (Last Updated 04/10/18 @ 11:34 by Raine Huber) New onset atrial fibrillation (Acute) - Physical Exam Vitals/I&O's: Vital Signs Temp Pulse Resp BP Pulse Ox 97.3 F L 97 24 H 112/72 90 03/27/19 14:01 03/27/19 17:47 03/27/19 17:27 03/27/19 16:53 03/27/19 17:27 Oxygen Delivery Method Room Air Weight: 192 lb 0.362 oz Body Mass Index (BMI) 24.0 Intake and Output for Last 24 Hours 03/25/19 03/26/19 03/27/19 23:59 23:59 23:59 Intake Total 999 / 999 Balance 999 / 999 General: Alert, Oriented x3, Cooperative, - - Appears anxious, restless HEENT: Atraumatic, PERRLA, EOMI, Normocephalic Oral: Dry Mucosa Neck: Supple, No JVD, Negative Carotid Bruits Lungs: Diminished, - - Few scattered wheezes Cardiovascular: - - Atrial fibrillation Abdomen: Bowel Sounds Present, Soft, Non Tender, Non-Distended Extremities: No clubbing, No cyanosis, No edema, Capillary Refill Less than 3 Seconds Skin: No rashes, No breakdown Musculoskeletal: No Tenderness to Palpation of Joints or Extremities Neurological: Cranial nerves II-XII grossly intact, Neuro grossly intact Psych/Mental Status: Anxious, Restless Laboratory Results 03/27/19 14:10: WBC 9.6, RBC 4.88, Hgb 15.7, Hct 46.3, MCV 94.9 H, MCH 32.2 H, MCHC 33.9, RDW Std Deviation 46.5 H, RDW Coeff of Radha 13.2, Plt Count 283, MPV 9.5, Immature Gran % (Auto) 0.600, Neut % (Auto) 64.4, Lymph % (Auto) 27.9, Morton % (Auto) 6.0, Eos % (Auto) 0.9, Baso % (Auto) 0.2, Absolute Neuts (auto) 6.2, Absolute Lymphs (auto) 2.67, Nucleated RBC % 0 03/27/19 14:10: Sodium Cancelled, Potassium Cancelled, Chloride Cancelled, Carbon Dioxide Cancelled, Anion Gap Cancelled, BUN Cancelled, Creatinine Cancelled, Estim Creat Clear Calc Cancelled, Est GFR (MDRD) Af Amer Cancelled, Est GFR (MDRD) Non-Af Cancelled, BUN/Creatinine Ratio Cancelled, Glucose Cancelled, Calcium Cancelled, Troponin I Cancelled 03/27/19 14:50: Sodium 138, Potassium 4.0, Chloride 105, Carbon Dioxide 23.0, Anion Gap 10, BUN 6 L, Creatinine 0.71, Estim Creat Clear Calc 143.81, Est GFR (MDRD) Af Amer 148, Est GFR (MDRD) Non-Af 123, BUN/Creatinine Ratio 8.4 L, Glucose 81, Calcium 7.9 L, Troponin I < 0.015 Assessment/Plan All Active Problems (Last Updated 04/10/18 @ 11:34 by Raine Huber) New onset atrial fibrillation (Acute) Acute pulmonary embolism (Resolved 04/08/18) Chest pain (Resolved) Intermittent palpitations (Resolved) STEMI (ST elevation myocardial infarction) (Resolved) 1. New onset atrial fibrillation-patient reports he was diagnosed with A. fib by EMS a few months ago in [place] however did not receive any evaluation due to leaving ER AMA. Continue Cardizem drip which was initiated in ER. Check TSH, mag. Trend enzymes. Obtain echo. 2. Chest pain-trend enzymes. Suspect chest pain secondary to #1. Echocardiogram ordered. Possible stress test pending results. 3. Alcohol dependence-patient reports 4-12 beers per day. CIWA/Ativan protocol. Librium taper. Thiamine, folic acid, multivitamin supplementation. 4. Tobacco dependence-pack per day smoker. Nicotine replacement patch. 5. CAD with history of PCI x2- Follow with Dr. Monte although it does not appear he has had recent follow-up. Continue aspirin, statin, Plavix, Toprol. 6. History of PE-completed treatment with Xarelto. 7. Hypertension-continue metoprolol regimen. 8. Hyperlipidemia-continue statin. 9. History of GI bleed 10. Depression/anxiety-no longer on regimen. Referred to counseling center during yesterday's ER visit. DVT prophylaxis-Lovenox subcu This patient was seen by BETH Vogel under the supervision of Dr. Owusu. <Alfredo Owusu - Last Filed: 03/27/19 18:58> History of Present Illness The patient is a 53 year old M [] Past Medical History Medical History: Medical History (Last Updated 04/10/18 @ 11:34 by Raine Huber) Essential (primary) hypertension (Chronic) I10 Nicotine dependence (Chronic) F17.200 Acute pulmonary embolism (Acute) Onset Date: 04/08/18 I26.99 Acute, mixed level of activity, alcohol withdrawal delirium (Acute) F10.231 HLD (hyperlipidemia) (Chronic) E78.5 Alcohol abuse (Chronic) F10.10 NSTEMI (non-ST elevated myocardial infarction) (Acute) Onset Date: 04/07/18 I21.4 Atherosclerosis of coronary artery of [place] heart with angina pectoris (Chronic) I25.119 BMS-Prox and Distal RCA 12/23/16 Anxiety F41.9 STEMI (ST elevation myocardial infarction) (Resolved) 12/23/16 STEMI (ST elevation myocardial infarction) I21.3 12/23/16 Noncompliance (Inactive) Z91.19 Allergies No Known Allergies Allergy (Verified 03/27/19 14:00) Surgical History: Surgical History (Last Updated 04/10/18 @ 11:33 by Raine Huber) History of coronary artery stent placement (Chronic) Onset Date: 12/23/16 Z95.5 BMS-Prox and Distal RCA 12/23/16 History of left heart catheterization Onset Date: 04/07/18 Z98.890 12/23/16- PCI with BM stent to prox RCA & distal RCA; 01/12/17- patent BM stents; - *Family History Sibling Family History: Family History (Last Reviewed 03/27/19 @ 18:19 by BETH Vogel) Father Myocardial infarction, Onset Age: 36 Mother Myocardial infarction Cancer Maternal Family History: Family History (Last Reviewed 03/27/19 @ 18:19 by BETH Vogel) Father Myocardial infarction, Onset Age: 36 Mother Myocardial infarction Cancer Paternal Family History: Family History (Last Reviewed 03/27/19 @ 18:19 by BETH Vogel) Father Myocardial infarction, Onset Age: 36 Mother Myocardial infarction Cancer - Physical Exam Vitals/I&O's: Vital Signs Temp Pulse Resp BP Pulse Ox 97.3 F L 115 H 20 H 101/77 92 03/27/19 14:01 03/27/19 18:13 03/27/19 18:13 03/27/19 18:13 03/27/19 18:13 Oxygen Delivery Method Room Air Weight: 192 lb 0.362 oz Body Mass Index (BMI) 24.0 Intake and Output for Last 24 Hours 03/25/19 03/26/19 03/27/19 23:59 23:59 23:59 Intake Total 1000 / 1000 Balance 1000 / 1000 Laboratory Results 03/27/19 14:10: WBC 9.6, RBC 4.88, Hgb 15.7, Hct 46.3, MCV 94.9 H, MCH 32.2 H, MCHC 33.9, RDW Std Deviation 46.5 H, RDW Coeff of Radha 13.2, Plt Count 283, MPV 9.5, Immature Gran % (Auto) 0.600, Neut % (Auto) 64.4, Lymph % (Auto) 27.9, Morton % (Auto) 6.0, Eos % (Auto) 0.9, Baso % (Auto) 0.2, Absolute Neuts (auto) 6.2, Absolute Lymphs (auto) 2.67, Nucleated RBC % 0 03/27/19 14:10: Sodium Cancelled, Potassium Cancelled, Chloride Cancelled, Carbon Dioxide Cancelled, Anion Gap Cancelled, BUN Cancelled, Creatinine Cancelled, Estim Creat Clear Calc Cancelled, Est GFR (MDRD) Af Amer Cancelled, Est GFR (MDRD) Non-Af Cancelled, BUN/Creatinine Ratio Cancelled, Glucose Cancelled, Calcium Cancelled, Troponin I Cancelled 03/27/19 14:50: Sodium 138, Potassium 4.0, Chloride 105, Carbon Dioxide 23.0, Anion Gap 10, BUN 6 L, Creatinine 0.71, Estim Creat Clear Calc 143.81, Est GFR (MDRD) Af Amer 148, Est GFR (MDRD) Non-Af 123, BUN/Creatinine Ratio 8.4 L, Glucose 81, Calcium 7.9 L, Troponin I < 0.015 Current Medications Chlordiazepoxide (Librium) 0 mg PO UD [facility]; Taper Stop: 03/30/19 19:44 Dicyclomine HCl (Bentyl) 20 mg PO Q6H PRN PRN PRN Reason: abdominal discomfort Enoxaparin Sodium (Lovenox) 40 mg SC DAILY [facility] Folic Acid (Folic Acid) [facility] Stop: 03/30/19 08:01 Hydroxyzine Pamoate (Vistaril Pamoate Capsule) 50 mg PO Q6H PRN PRN PRN Reason: Mild Anxiety (score 1/3) Diltiazem HCl 125 mg/ Dextrose 125 mls @ 5 mls/hr IV .Q25H [facility]; Protocol Lorazepam (Ativan) 2 mg IV X1 PRN PRN Reason: Seizure Methocarbamol (Methocarbamol) 750 mg PO Q6H PRN PRN PRN Reason: Muscle Aches Multivitamins (Multivitamin) 1 tablet PO DAILYCM LIONEL Nicotine (Nicoderm Cq (Pbkc)) 21 mg TRANSDERM. DAILY [facility] Thiamine HCl (Vitamin B1) 100 mg PO DAILYCM LIONEL Stop: 03/30/19 08:01 Code Visit Addendum: Dr. Owusu I personally examined the patient and reviewed the chart. I agree with the above. 53-year-old male who is a smoker as well as drinks alcohol 4-6 times a week presents with chest pain. He has had stents in the past however this time he was in A. fib with RVR. His initial troponin was unremarkable, but these will be obtained serially. He says he does take his aspirin and Plavix as prescribed as well as his metoprolol. He said that this is been going on for the last several days and he was started on a Cardizem drip. Will obtain an echo as well as a TSH and go from there. He is a chads of 1 and given his aspirin and Plavix will likely not need anticoagulation. We will also place him on alcohol withdrawal protocol though he assures me that he will not go into withdrawal, and will also give him a nicotine patch as well as he smokes about a pack a day. Inpatient E&M: [id number] Init Hosp L2
[2019-03-27] MEDS: Folic Acid 1 MG Tablet PO (19:47)
[2019-03-27] MEDS: Metoprolol Tartrate 25 MG Tablet PO (19:47)
[2019-03-27] MEDS: chlordiazePOXIDE 25 MG Capsule 50 MG PO (19:47)
[2019-03-27] MEDS: Thiamine Hydrochloride 100 MG Tablet PO (19:47)
--- NOTE | 2019-03-27 22:03 | EKG12_ITS ---
Test Reason : CP Blood Pressure : / mmHG Vent. Rate : 077 BPM Atrial Rate : 077 BPM P-R Int : 152 ms QRS Dur : 082 ms QT Int : 388 ms P-R-T Axes : -07 -18 038 degrees QTc Int : 439 ms Normal sinus rhythm Normal ECG When compared with ECG of 27-MAR-2019 14:07, MANUAL COMPARISON REQUIRED, DATA IS UNCONFIRMED Confirmed by ETIENNE BERRIOS ([id number]), editor dictionary FEMI AKHTAR ([id number]) on 03/29/2019 9:54:44 AM Referred By: SKYLER Confirmed By:ETIENNE BERRIOS
[2019-03-27] MEDS: Nitroglycerin (INPATIENT USE) 0.4 MG TAB.SUBL SUBLINGUAL (22:32)
[2019-03-27] MEDS: Morphine 2 MG/ML Syringe IV (23:01)
[2019-03-28] VITALS (11 sets, daily range): BP systolic 108–153; BP diastolic 74–106; PULSE 81–110; RESP 16–18; TEMP 36.1–36.9; O2SAT 92–97
[2019-03-28] MEDS: chlordiazePOXIDE 25 MG Capsule 50 MG PO ×2 (00:11→23:00)
[2019-03-28] MEDS: LORazepam 2 MG/ML Syringe IV (00:28)
[2019-03-28 03:21] LABS: Absolute Lymphocyte Count 1.57 X10^3/uL (0.83-4.51); Absolute Neutrophil Count 5.6 X10^3/uL (2.0-7.7); Basophil# 0.03 X10^3/uL; Basophil% 0.4 % (0-1); Eosinophil# 0.07 X10^3/uL; Eosinophils% 0.9 % (0-5); Hematocrit 47.3 % (40-54); Hemoglobin 15.5 g/dL (13.0-16.5); Lymphocyte # 1.57 X10^3/ul (4.0); Lymphocyte % 20.3 % (19-41); Mean Corp Hgb Conc 32.8 g/dL (32-36); Mean Corpuscular Hgb 31.3 pg (27.0-32.0); Mean Corpuscular Volume 95.6 fL (80-94); Mean Platelet Vol. 9.5 fl (6.2-12.0); Monocyte# 0.45 X10^3/uL; Monocyte% 5.8 % (0-10); NRBC Flagged by Analyzer 0 % (0-5); Neutrophil # 5.61 X10^3/uL (2.7-7.7); Neutrophil % 72.3 % (47-70); Platelet Count 247 K/mm3 (150-450); RBC Distribution Width CV 13.2 % (11.6-14.6); RBC Distribution Width SD 46.9 fl (35.1-43.9); Red Blood Count 4.95 M/mm3 (4.6-6.2); White Blood Count 7.8 K/mm3 (4.4-11.0)
[2019-03-28 04:31] LABS: Anion Gap 10 (5-15); BUN 8 mg/dL (7-18); Calcium,Total 8.5 mg/dL (8.5-10.1); Chloride 107 mmol/L (98-107); Cholesterol 149 mg/dL (200); Creatinine, Serum 0.66 mg/dL (0.70-1.30); EST Glomerular Filtration Rate 133 mL/min (>60); Est Glom Filt Rate - Afr Amer 161 mL/min (>60); Estimated Creatinine Clearance 149.94 ml/min; Glucose 73 mg/dL (74-106); High Density Lipoprotein 59 mg/dL; Potassium 4.4 mmol/L (3.5-5.1); Sodium Level 140 mmol/L (136-145); Thyroid Stim Hormone (TSH) 2.22 uIU/mL (0.358-3.74); Triglycerides 79 mg/dL; Very Low Density Lipoprotein 16 mg/dL (5-40)
[2019-03-28] MEDS: Morphine 2 MG/ML Syringe IV ×2 (05:06→21:25)
[2019-03-28] MEDS: 0.9% Saline Lock 10 ML Syringe IV ×2 (05:06→21:25)
--- NOTE | 2019-03-28 05:55 | ECHOD_ITS ---
Reason For Study: Afib, Aflutter Procedure This was a 2D Doppler, Color Flow transthoracic echocardiogram. Exam performed portable in patient room. Left Ventricle Mild concentric left ventricular hypertrophy. Apical false tendon noted. The estimated ejection fraction is 65 %. Stage 1 diastolic dysfunction. No regional wall motion abnormalities noted. Right Ventricle Normal size and thickness. Normal systolic function. Atria Normal left atrium. Normal right atrium. Normal atrial septum. Mitral Valve The mitral valve is structurally normal. No prolapse or stenosis seen. Trivial mitral valve insufficiency. Tricuspid Valve Normal tricuspid valve. Aortic Valve Trisinus/trileaflet aortic valve. Mild diffuse aortic valve thickening. Trivial aortic valve insufficiency. Pulmonic Valve Normal pulmonic valve. Trivial pulmonic valve insufficiency. Great Vessels Normal aortic root. Normal arch. Normal inferior vena cava. Inferior vena cava collapse with sniff. Pericardium/Pleural No pericardial effusion. MMode/2D Measurements & Calculations LVIDd: 4.9 cm IVSd: 1.3 cm Ao root diam: 3.5 cm LVIDs: 3.8 cm LVPWd: 1.3 cm RVDd: 3.3 cm FS: 22.3 % LAV(MOD-bp): 33.2 ml LVAd ap4: 30.0 cm2 SV(MOD-sp4): 43.0 ml LAV(MOD-bp) Indexed: 15.8 ml/m2 EDV(MOD-sp4): 80.9 ml LAV(MOD-sp2): 52.6 ml EDV(sp4-el): 84.7 ml LAV(MOD-sp4): 20.9 ml LVAs ap4: 18.7 cm2 ESV(MOD-sp4): 37.9 ml ESV(sp4-el): 37.4 ml EF(MOD-sp4): 53.2 % EF(sp4-el): 55.8 % SV(sp4-el): 47.2 ml LA A4 area: 10.7 cm2 LA dimension(2D): 2.8 cm RA A4 area: 12.0 cm2 Doppler Measurements & Calculations MV E max darryl: 46.4 cm/sec Lat Peak E' Darryl: 12.1 cm/sec Med Peak E' Darryl: 3.9 cm/sec MV A max darryl: 81.2 cm/sec E/E' lat: 3.8 E/E' med: 11.8 MV E/A: 0.57 Ao V2 max: 110.9 cm/sec LV V1 max: 92.1 cm/sec PA V2 max: 69.2 cm/sec Ao max P.9 mmHg LV V1 max P.4 mmHg Ao V2 mean: 80.7 cm/sec Ao mean P.8 mmHg Ao V2 VTI: 20.2 cm Interpretation Summary Mild concentric left ventricular hypertrophy. The estimated ejection fraction is 65 %. Stage 1 diastolic dysfunction. Trivial mitral valve insufficiency. Trivial aortic valve insufficiency. Compared to echo report dated 01/11/2017, LV function has improved from 45% to 65%. Ordering Physician: Alfredo Owusu Performed By: Delores Hidalgo RDCS, LINNEAT
[2019-03-28] MEDS: Aspirin 81 MG TAB.CHEW 162 MG PO (10:06)
[2019-03-28] MEDS: Multivitamins,Therapeutic Tablet 1 TABLET PO (10:06)
[2019-03-28] MEDS: Thiamine Hydrochloride 100 MG Tablet PO (10:06)
[2019-03-28] MEDS: Metoprolol Tartrate 25 MG Tablet PO (10:06)
[2019-03-28] MEDS: Folic Acid 1 MG Tablet PO (10:06)
[2019-03-28] MEDS: Clopidogrel Bisulfate 75 MG Tablet PO (10:06)
--- NOTE | 2019-03-28 12:00 | CASEMGMT ---
DILIP FOWLER assessment: Face to Face with patient for initial transition planning/care coordination assessment. RN MALCOLM introduced self and role at [facility], pt voices understanding and consents to assessment reluctantly at this time and states 'But I have some questions for you.' Pt states concerns about 'leaving to go lock up my home and I will come back.' Pt is very anxious and shaking at this time. Dr. Alicia and Michele CHERRY updated on pt's request/concern, voice understanding at this time. Pt is sitting in bed in no distress at this time. Pt is A/Ox4 at this time and answers all questions appropriately at this time. Care providers, pharmacy, and demographics verified at this time. Presentation: Chest pain Admitting dx: ETOH and Afib RVR PCP: Pt states does not currently have PCP and declines list at this time, stating I work out town in [place] a lot of the time so there is no point in seeing someone here. Specialists: Pt states no current specialists. Preferred [facility]acy: [facility] Insurance: [place] Pres[place] Living Will/HPOA: Pt has LW/HPOA and they are on file at [facility] at this time. Pt's sister, Rose Gibbs, is HPOA. LNOK: Rose Gibbs, sister/HPOA Living Arrangements: Pt states lives alone in a duplex and states no concerns at home at this time. Pt states is independent with ADL's. Transportation: Pt states drives self and states no transportation concerns at this time. DME/HHC: Pt states no current DME or need for any at this time. Pt states no hx of HHC or SNF in the past. Pt states no concerns with going home at time of discharge. 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 Pt states drinks 3/4pack daily and drinks 4-12 beers daily. Pt declines needs for ETOH resources. Pt states I am quitting drinking now and I know how to do it on my own. Pt states no further concerns/needs at this time. CM to follow for any further discharge planning/needs. Advised pt to ask for CM if any further questions/concerns/needs arise, voices understanding. Pt Goal: [place]
--- NOTE | 2019-03-28 13:03 | PN_ITS ---
<Mary Menjivar - Last Filed: 03/28/19 13:32> Patient Problems: Active and Suspected Problems (Last Updated 04/10/18 @ 11:34 by Raine Huber) New onset atrial fibrillation (Acute) Subjective: Patient seen and examined. Reports chest tightness and shortness of breath improved. Converted to sinus rhythm. - Physical Exam Vitals/I&O's: Vital Signs Temp Pulse Resp BP Pulse Ox 98.3 F 100 16 140/89 H 97 03/28/19 10:03 03/28/19 10:06 03/28/19 10:03 03/28/19 10:03 03/28/19 10:03 Oxygen Delivery Method Room Air Weight: 180 lb 8.937 oz Body Mass Index (BMI) 22.5 Intake and Output for Last 24 Hours 03/26/19 03/27/19 03/28/19 23:59 23:59 23:59 Intake Total 1120 / 1120 360 / 360 Balance 1120 / 1120 360 / 360 General: Alert, Oriented x3, Cooperative, - - Appears older than stated age HEENT: Atraumatic, PERRLA, EOMI, Normocephalic Oral: Dry Mucosa Neck: Supple, No JVD, Negative Carotid Bruits Lungs: Clear to auscultation, Diminished Cardiovascular: Regular rate, Regular Rhythm, Normal S1, Normal S2 Abdomen: Bowel Sounds Present, Soft, Non Tender, Non-Distended Extremities: No clubbing, No cyanosis, No edema, Capillary Refill Less than 3 Seconds Skin: No rashes, No breakdown Musculoskeletal: No Tenderness to Palpation of Joints or Extremities Neurological: Cranial nerves II-XII grossly intact, Neuro grossly intact Psych/Mental Status: Anxious Laboratory Results 03/27/19 14:10: WBC 9.6, RBC 4.88, Hgb 15.7, Hct 46.3, MCV 94.9 H, MCH 32.2 H, MCHC 33.9, RDW Std Deviation 46.5 H, RDW Coeff of Radha 13.2, Plt Count 283, MPV 9.5, Immature Gran % (Auto) 0.600, Neut % (Auto) 64.4, Lymph % (Auto) 27.9, Lumpkin % (Auto) 6.0, Eos % (Auto) 0.9, Baso % (Auto) 0.2, Absolute Neuts (auto) 6.2, Absolute Lymphs (auto) 2.67, Nucleated RBC % 0 03/27/19 14:10: Sodium Cancelled, Potassium Cancelled, Chloride Cancelled, Carbon Dioxide Cancelled, Anion Gap Cancelled, BUN Cancelled, Creatinine Cancelled, Estim Creat Clear Calc Cancelled, Est GFR (MDRD) Af Amer Cancelled, Est GFR (MDRD) Non-Af Cancelled, BUN/Creatinine Ratio Cancelled, Glucose Cancelled, Calcium Cancelled, Troponin I Cancelled 03/27/19 14:50: Sodium 138, Potassium 4.0, Chloride 105, Carbon Dioxide 23.0, Anion Gap 10, BUN 6 L, Creatinine 0.71, Estim Creat Clear Calc 143.81, Est GFR (MDRD) Af Amer 148, Est GFR (MDRD) Non-Af 123, BUN/Creatinine Ratio 8.4 L, Glucose 81, Calcium 7.9 L, Troponin I < 0.015 03/27/19 19:52: Troponin I < 0.015 03/27/19 22:17: Troponin I < 0.015 03/28/19 02:05: Sodium 140, Potassium 4.4, Chloride 107, Carbon Dioxide 23.0, Anion Gap 10, BUN 8, Creatinine 0.66 L, Estim Creat Clear Calc 149.94, Est GFR (MDRD) Af Amer 161, Est GFR (MDRD) Non-Af 133, BUN/Creatinine Ratio 12.0, Glucose 73 L, Calcium 8.5, Triglycerides 79, Cholesterol 149, LDL Cholesterol 74, VLDL Cholesterol 16, HDL Cholesterol 59, TSH 2.22 03/28/19 02:05: WBC 7.8, RBC 4.95, Hgb 15.5, Hct 47.3, MCV 95.6 H, MCH 31.3, MCHC 32.8, RDW Std Deviation 46.9 H, RDW Coeff of Radha 13.2, Plt Count 247, MPV 9.5, Immature Gran % (Auto) 0.300, Neut % (Auto) 72.3 H, Lymph % (Auto) 20.3, Lumpkin % (Auto) 5.8, Eos % (Auto) 0.9, Baso % (Auto) 0.4, Absolute Neuts (auto) 5.6, Absolute Lymphs (auto) 1.57, Nucleated RBC % 0 03/28/19 02:05: Troponin I < 0.015 Current Medications Aspirin (Aspirin, Baby) 162 mg PO DAILY@0800 [facility] Last Admin: 03/28/19 10:06 Dose: 162 mg Documented by: Atorvastatin Calcium (Lipitor) 20 mg PO QHS [facility] Chlordiazepoxide (Librium) 50 mg PO Q8H [facility]; Taper Stop: 03/30/19 20:59 Last Admin: 03/28/19 06:26 Dose: Not Given Documented by: Clopidogrel Bisulfate (Plavix) 75 mg PO DAILY [facility] Last Admin: 03/28/19 10:06 Dose: 75 mg Documented by: Dicyclomine HCl (Bentyl) 20 mg PO Q6H PRN PRN PRN Reason: abdominal discomfort Enoxaparin Sodium (Lovenox) 40 mg SC DAILY [facility] Last Admin: 03/28/19 10:07 Dose: Not Given Documented by: [facility] ([facility]) [facility] Stop: 03/29/19 08:01 Last Admin: 03/28/19 10:06 Dose: 1 mg Documented by: Hydroxyzine Pamoate (Vistaril Pamoate Capsule) 50 mg PO Q6H PRN PRN PRN Reason: Mild Anxiety (score 1/3) Lorazepam (Ativan) 2 mg IV X1 PRN PRN Reason: Seizure Last Admin: 03/28/19 00:28 Dose: 2 mg Documented by: Methocarbamol (Methocarbamol) 750 mg PO Q6H PRN PRN PRN Reason: Muscle Aches Metoprolol Tartrate (Lopressor (Beta Levon)) 50 mg PO BID [facility] Morphine Sulfate () 2 mg IV Q4H PRN PRN PRN Reason: Pain Score 6-10/10 Last Admin: 03/28/19 05:06 Dose: 2 mg Documented by: Multivitamins (Multivitamin) [facility] Last Admin: 03/28/19 10:06 Dose: 1 tablet Documented by: Nicotine (Nicoderm Cq (Pbkc)) 21 mg TRANSDERM. DAILY [facility] Last Admin: 03/28/19 10:07 Dose: 21 mg Documented by: Nitroglycerin (Nitrostat) 0.4 mg SUBLINGUAL Q5M PRN PRN Reason: CARDIAC/CHEST PAIN Last Admin: 02/18/20 22:32 Dose: 1 tab Documented by: Sodium Chloride () 10 - 40 ml IV UD PRN PRN Reason: SALINE FLUSH Last Admin: 03/28/19 05:06 Dose: 10 ml Documented by: Thiamine HCl (Vitamin B1) 100 mg PO DAILYCM [facility] Stop: 03/29/19 08:01 Last Admin: 03/28/19 10:06 Dose: 100 mg Documented by: Medical Necessity - Tobacco Use Smoking Status: Current every day smoker Tobacco Use: Cigarettes Assessment/Plan All Active Problems (Last Updated 04/10/18 @ 11:34 by Raine Huber) New onset atrial fibrillation (Acute) Acute pulmonary embolism (Resolved 04/08/18) Chest pain (Resolved) Intermittent palpitations (Resolved) STEMI (ST elevation myocardial infarction) (Resolved) 1. New onset atrial fibrillation-patient reports he was diagnosed with A. fib by EMS a few months ago in [place] however did not receive any evaluation due to leaving ER AMA. Troponin negative. TSH normal. Check mag. Initially started on Cardizem drip. Converted to sinus rhythm. Continue metoprolol 50 mg twice daily. Echocardiogram pending. Plan for stress test in a.m. 2. Chest pain-trend enzymes. Suspect chest pain secondary to #1. Echocardiogram pending as noted above. Stress test in a.m. 3. Alcohol dependence-patient reports 4-12 beers per day. CIWA/Ativan protocol. Thiamine, folic acid, multivitamin supplementation. 4. Tobacco dependence-pack per day smoker. Nicotine replacement patch. 5. CAD with history of PCI x2- Follow with Dr. Monte although it does not appear he has had recent follow-up. Continue aspirin, statin, Plavix, Toprol. 6. History of PE-completed treatment with Xarelto. 7. Hypertension-continue metoprolol regimen. 8. Hyperlipidemia-continue statin. 9. History of GI bleed 10. Depression/anxiety-no longer on regimen. Referred to counseling center during 03/26 ER visit. DVT prophylaxis-Lovenox subcu This patient was seen by BETH Vogel under the supervision of Dr. Alicia. <Jourdan Alicia - Last Filed: 03/28/19 14:29> Subjective: No further chest pain nor palpitations. States that he needs Aleve so that he can go to his job. - Physical Exam Vitals/I&O's: Vital Signs Temp Pulse Resp BP Pulse Ox 36.8 C 100 16 140/89 H 97 03/28/19 10:03 03/28/19 10:06 03/28/19 10:03 03/28/19 10:03 03/28/19 10:03 Oxygen Delivery Method Room Air Weight: 81.9 kg Body Mass Index (BMI) 22.5 Intake and Output for Last 24 Hours 03/26/19 03/27/19 03/28/19 23:59 23:59 23:59 Intake Total 1120 / 1120 360 / 360 Balance 112 / 1120 360 / 360 General: Alert, - - Appears older than stated age. Patient, his phone and declined any further examination by myself. HEENT: Atraumatic, Normocephalic Laboratory Results 03/27/19 14:10: WBC 9.6, RBC 4.88, Hgb 15.7, Hct 46.3, MCV 94.9 H, MCH 32.2 H, MCHC 33.9, RDW Std Deviation 46.5 H, RDW Coeff of Radha 13.2, Plt Count 283, MPV 9.5, Immature Gran % (Auto) 0.600, Neut % (Auto) 64.4, Lymph % (Auto) 27.9, Lumpkin % (Auto) 6.0, Eos % (Auto) 0.9, Baso % (Auto) 0.2, Absolute Neuts (auto) 6.2, Absolute Lymphs (auto) 2.67, Nucleated RBC % 0 03/27/19 14:10: Sodium Cancelled, Potassium Cancelled, Chloride Cancelled, Carbon Dioxide Cancelled, Anion Gap Cancelled, BUN Cancelled, Creatinine Cancelled, Estim Creat Clear Calc Cancelled, Est GFR (MDRD) Af Amer Cancelled, Est GFR (MDRD) Non-Af Cancelled, BUN/Creatinine Ratio Cancelled, Glucose Cancelled, Calcium Cancelled, Troponin I Cancelled 03/27/19 14:50: Sodium 138, Potassium 4.0, Chloride 105, Carbon Dioxide 23.0, Anion Gap 10, BUN 6 L, Creatinine 0.71, Estim Creat Clear Calc 143.81, Est GFR (MDRD) Af Amer 148, Est GFR (MDRD) Non-Af 123, BUN/Creatinine Ratio 8.4 L, Glucose 81, Calcium 7.9 L, Troponin I < 0.015 03/27/19 19:52: Troponin I < 0.015 03/27/19 22:17: Troponin I < 0.015 03/28/19 02:05: Sodium 140, Potassium 4.4, Chloride 107, Carbon Dioxide 23.0, Anion Gap 10, BUN 8, Creatinine 0.66 L, Estim Creat Clear Calc 149.94, Est GFR (MDRD) Af Amer 161, Est GFR (MDRD) Non-Af 133, BUN/Creatinine Ratio 12.0, Glucose 73 L, Calcium 8.5, Triglycerides 79, Cholesterol 149, LDL Cholesterol 74, VLDL Cholesterol 16, HDL Cholesterol 59, TSH 2.22 03/28/19 02:05: WBC 7.8, RBC 4.95, Hgb 15.5, Hct 47.3, MCV 95.6 H, MCH 31.3, MCHC 32.8, RDW Std Deviation 46.9 H, RDW Coeff of Radha 13.2, Plt Count 247, MPV 9.5, Immature Gran % (Auto) 0.300, Neut % (Auto) 72.3 H, Lymph % (Auto) 20.3, Lumpkin % (Auto) 5.8, Eos % (Auto) 0.9, Baso % (Auto) 0.4, Absolute Neuts (auto) 5.6, Absolute Lymphs (auto) 1.57, Nucleated RBC % 0 03/28/19 02:05: Troponin I < 0.015 03/28/19 02:05: Magnesium 2.2 Current Medications Aspirin (Aspirin, Baby) 162 mg PO DAILY@0800 [facility] Last Admin: 03/28/19 10:06 Dose: 162 mg Documented by: Atorvastatin Calcium (Lipitor) 20 mg PO QHS [facility] Chlordiazepoxide (Librium) 50 mg PO Q8H [facility]; Taper Stop: 03/30/19 20:59 Last Admin: 03/28/19 13:47 Dose: Not Given Documented by: Clopidogrel Bisulfate (Plavix) 75 mg PO DAILY [facility] Last Admin: 03/28/19 10:06 Dose: 75 mg Documented by: Dicyclomine HCl (Bentyl) 20 mg PO Q6H PRN PRN PRN Reason: abdominal discomfort Enoxaparin Sodium (Lovenox) 40 mg SC DAILY [facility] Last Admin: 03/28/19 10:07 Dose: Not Given Documented by: Folic Acid (Folic Acid) [facility] Stop: 03/29/19 08:01 Last Admin: 03/28/19 10:06 Dose: 1 mg Documented by: Hydroxyzine Pamoate (Vistaril Pamoate Capsule) 50 mg PO Q6H PRN PRN PRN Reason: Mild Anxiety (score 1/3) Lorazepam (Ativan) 2 mg IV X1 PRN PRN Reason: Seizure Last Admin: 03/28/19 00:28 Dose: 2 mg Documented by: Methocarbamol (Methocarbamol) 750 mg PO Q6H PRN PRN PRN Reason: Muscle Aches Metoprolol Tartrate (Lopressor (Beta Levon)) 50 mg PO BID [facility] Morphine Sulfate () 2 mg IV Q4H PRN PRN PRN Reason: Pain Score 6-10/10 Last Admin: 03/28/19 05:06 Dose: 2 mg Documented by: Multivitamins (Multivitamin) [facility] Last Admin: 03/28/19 10:06 Dose: 1 tablet Documented by: Nicotine (Nicoderm Cq (Pbkc)) 21 mg TRANSDERM. DAILY [facility] Last Admin: 03/28/19 10:07 Dose: 21 mg Documented by: Nitroglycerin (Nitrostat) 0.4 mg SUBLINGUAL Q5M PRN PRN Reason: CARDIAC/CHEST PAIN Last Admin: 03/27/19 22:32 Dose: 1 tab Documented by: Sodium Chloride () 10 - 40 ml IV UD PRN PRN Reason: SALINE FLUSH Last Admin: 03/28/19 05:06 Dose: 10 ml Documented by: Thiamine HCl (Vitamin B1) [facility] Stop: 03/29/19 08:01 Last Admin: 03/28/19 10:06 Dose: 100 mg Documented by: Assessment/Plan Patient seen and examined independently. Data reviewed. I agree with the above note by the nurse practitioner. 1. Atrial fibrillation: Likely paroxysmal but still ongoing at this time. Patient is likely had this before and is been evaluated previously. [id number] c score is 1. Patient will be on metoprolol 50 mg twice daily. Check echocardiogram. 2. Chest pain: Likely associated with his palpitations. Stress test ordered. Patient was requesting going home so that he can go to his job in [place]. I told him that that would be fine but that he would need to be followed up in short order with primary care doctor and to get an echocardiogram as well as a stress test but I told him that would take a matter of weeks for that all be done. He said that he be willing to do that and then needed me to write him an excuse for work saying that he can go back to full duties. I told the patient that I would fill the paperwork that says that he was in the hospital for the allotted days but I would not give him any formal approval to return to work at full duties as I do not know his cardiac status at this time. He became very flustered by that and kept on trying to explain to him me that he needs his job. Asked told him I understood that he needs his job but I could not in good conscious right a excuse for him to return back to full duties without knowing is cardiac status. So patient stated that he would need time to think about it today and was threatening to leave AGAINST MEDICAL ADVICE. I left the room and then prior 30 or 60 minutes later, the patient agreed to stay. The patient be undergoing an echocardiogram as well as a stress test. Code Visit Inpatient E&M: 91256 Subs Hosp L2
[2019-03-28 13:40] LABS: Magnesium 2.2 mg/dL (1.6-2.6)
--- NOTE | 2019-03-28 15:00 | CASEMGMT ---
Patient made it clear to the RN CM he is not interested in any resources to assist with his alcohol abuse. Margarita SALVADOR MSW
[2019-03-28] MEDS: Atorvastatin Calcium 80 MG Tablet 20 MG PO (21:24)
[2019-03-28] MEDS: Metoprolol Tartrate 50 MG Tablet PO (21:24)
[2019-03-29 03:00] VITALS: PULSE 78
[2019-03-29 03:20] VITALS: BP 122/92; PULSE 77; RESP 18; TEMP 36.9; O2SAT 95
--- NOTE | 2019-03-29 05:55 | EKG12_ITS ---
Test Reason : AM EKG Blood Pressure : / mmHG Vent. Rate : 076 BPM Atrial Rate : 076 BPM P-R Int : 150 ms QRS Dur : 084 ms QT Int : 406 ms P-R-T Axes : 040 -12 044 degrees QTc Int : 456 ms Sinus rhythm with occasional Premature ventricular complexes Otherwise normal ECG When compared with ECG of 27-MAR-2019 22:12, MANUAL COMPARISON REQUIRED, DATA IS UNCONFIRMED Confirmed by RUTH VENTURA, MALCOM ([id number]), film and video editor FEMI AKHTAR ([id number]) on 04/02/2019 2:50:39 PM Referred By: NATANAEL Confirmed By:EB MIRANDA MD
[2019-03-29] MEDS: Aspirin 81 MG TAB.CHEW 162 MG PO (06:19)
[2019-03-29 06:47] VITALS: PULSE 86
[2019-03-29 09:20] VITALS: BP 139/80; PULSE 81; RESP 18; TEMP 36.4; O2SAT 95
[2019-03-29 10:00] VITALS: BP 139/80; PULSE 81
--- NOTE | 2019-03-29 10:57 | STRESSREP_ITS ---
Stress Test Report Date: 03/29/2019 Procedure: Pharmacologic stress nuclear imaging study Indications: Chest pain Consent: Per the patient Procedure: The patient underwent pharmacologic (Regadenoson) evaluation with a peak heart rate of 102 beats per minute (61 %predicted maximal heart rate) and a peak blood pressure of 130/78 mmHg. The baseline ECG demonstrated sinus rhythm with occasional PVCs. EKG during lexiscan infusion revealed no ischemic changes. EKG post infusion revealed no ischemic changes [There were no significant cardiac dysrhythmias pretest, during pharmacologic infusion, or recovery]. [There was no complaint of chest discomfort during pharmacologic infusion or recovery]. The examination was discontinued secondary to completion of protocol. Impression: 1. Lexiscan stress test test is negative for Lexiscan infusion induced EKG changes of ischemia. 2. Lexiscan stress test test is negative for Lexiscan infusion induced chest pain. 3. Results of the nuclear portion of the test is as below Myocardial perfusion imaging study: Technique: The patient was injected with 11.9 millicuries of technetium 99m Cardiolite and subsequently rest SPECT Cardiolite nuclear imaging was obtained in the horizontal long, vertical long, and short axis views. The patient underwent pharmacologic (Regadenoson) evaluation. Please see above for details. The patient was injected with 35 millicuries of technetium 99m Cardiolite and subsequently stress SPECT Cardiolite nuclear imaging was obtained in the horizontal long, vertical long, and short axis views. A gated Cardiolite study at peak stress was obtained. Interpretation: Rest and stress SPECT Cardiolite nuclear imaging status post realignment, normalization, and attenuation correction demonstrate decreased radioisotope uptake in the inferior wall on both the rest and stress images prior to attenuation correction. After attenuation correction there is normal uptake overall. There is no evidence of significant ischemia or infarction. These findings are suggestive of diaphragmatic attenuation artifact. Gated images reveal mild global hypokinesis. The reported LVEF is 42 %. Impression: 1. There is no evidence of significant ischemia or infarction. 2. Estimated ejection fraction is 42%. This note was generated with [employer] software. It may contain incorrect words, spelling, and punctuation that were not noted in checking the note before signing.
--- NOTE | 2019-03-29 13:37 | PCM.DC ---
- Discharge Diagnoses Current Active Problems: Current Active and Chronic Problems New onset atrial fibrillation (Acute) Alcohol abuse (Chronic) You will use the following diet at home:: Cardiac Your food should be the consistency of: Regular Discharge Activity: Return to Normal Activity Return to work on:: 03/29/19 Call your doctor if you observe: Shortness of breath, Increased palpitations (irregular heartbeat) Allergies/Adverse Reactions: Allergies No Known Allergies Allergy (Verified 03/27/19 14:00) Medications to take at Discharge Aspirin [Aspirin, Baby] 162 mg PO DAILY@0800 10/03/17 atorvastatin 80 mg tablet 20 mg PO DAILY #90 tab 01/18/19 Clopidogrel Bisulfate [Clopidogrel] 75 mg PO DAILY 03/27/19 Fluticasone 0.05% [Flonase Nasal [place]] 1 spray NASAL DAILY PRN 03/27/19 Metoprolol Tartrate [Lopressor (beta luis)] 50 mg PO BID #60 tab 03/29/19 Multivitamins,Therapeutic [Multivitamin] 1 tablet PO DAILYCM tablet 03/29/19 The following prescriptions were given: Metoprolol Tartrate [Lopressor (beta luis)] 50 mg PO BID #60 tab Transmission Status: Pending to [facility] Primary Care Physician: Care Physician,No Primary [Primary Care Provider] - Test Results: Test results from this visit will be discussed in further detail at your follow-up appointment, if applicable. Please Follow Up With: primary care physician When: 2 weeks Please Follow Up With: extraction operator When: 4-6 weeks Proposed Discharge Date: 03/29/19
--- NOTE | 2019-03-29 13:38 | PCM.WORK.EX ---
Work/School Excuse Work/School Excuse for:: Patient Please excuse this person from:: Work From: 03/27/19 through: 03/29/19
--- NOTE | 2019-03-29 13:39 | DS.PCM_ITS ---
Discharge Date and Diagnosis - Problem List Patient Problems: Active and Suspected Problems (Last Updated 04/10/18 @ 11:34 by Raine Huber) New onset atrial fibrillation (Acute) Date of Admission: 03/27/19 Date of Discharge: 03/29/19 - Primary Discharge Diagnosis Active and Suspected Problems (Last Updated 04/10/18 @ 11:34 by Raine Huber) New onset atrial fibrillation (Acute) - Secondary Discharge Diagnosis Chronic Problems (Last Updated 04/10/18 @ 11:33 by Raine Huber) Essential (primary) hypertension (Chronic) Nicotine dependence (Chronic) HLD (hyperlipidemia) (Chronic) Alcohol abuse (Chronic) NSTEMI (non-ST elevated myocardial infarction) (Chronic 04/07/18) Atherosclerosis of coronary artery of [place] heart with angina pectoris (Chronic) BMS-Prox and Distal RCA 12/23/16 History of coronary artery stent placement (Chronic 12/23/16) BMS-Prox and Distal RCA 12/23/16 Hospital Course and Treatment Imaging Results: 03/29/19 05:55 Nuclear Stress Test - Chemical [NM] AM (NON MEDS) Operations: None Procedures: 2-D Echocardiogram - Mild concentric left ventricular hypertrophy. The estimated ejection fraction is 65 %. Stage 1 diastolic dysfunction. Trivial mitral valve insufficiency. Trivial aortic valve insufficiency. Compared to echo report dated 01/11/2017, LV function has improved from 45% to 65%., Stress test - Impression: 1. Lexiscan stress test test is negative for Lexiscan infusion induced EKG changes of ischemia. 2. Lexiscan stress test test is negative for Lexiscan infusion induced chest pain. 3. Results of the nuclear portion of the test is as below Patient's 2D echo images were reviewed. EF appeared to be preserved. The estimated EF on this stress test is likely artifactually low. Summary of Care Provided: The patient is a 53 year old M with chest pain and palpitations.. Was found to be in atrial fibrillation with RVR. Heart rate did improve with some modification of his medications and eventually patient returned to normal sinus rhythm. Patient is [id number] of 1. Echocardiogram showed an EF of 65%. Given the chest pain, patient underwent a stress test that was normal. [place] that the chest pain was prior attributable to the palpitations. Patient's metoprolol has been increased from 25 to 50 mg twice daily. Patient will be discharged to home. Patient has been very adamant about leaving AGAINST MEDICAL ADVICE throughout the course of his hospitalization and has been agitated about not being discharged to early enough time as he stated that he had a stress test in the morning. I did call cardiology earlier to clarify the low EF on his stress test and verify that with his echocardiogram. [place] to be artificially low after further evaluation from cardiology's perspective on the stress test. So patient will be discharged and patient may return to his normal duties at [facility]. [] Patient Problems: Active and Suspected Problems (Last Updated 04/10/18 @ 11:34 by Raine Huber) New onset atrial fibrillation (Acute) - Physical Exam Vitals/I&O's: Vital Signs Temp Pulse Resp BP Pulse Ox 36.4 C L 81 18 139/80 H 95 03/29/19 09:20 03/29/19 10:00 03/29/19 09:20 03/29/19 10:00 03/29/19 09:20 Oxygen Delivery Method Room Air Weight: 81.9 kg Body Mass Index (BMI) 22.5 Intake and Output for Last 24 Hours 03/27/19 03/28/19 03/29/19 23:59 23:59 23:59 Intake Total 1120 / 1120 840 / 840 240 / 240 Balance 1120 / 1120 840 / 840 240 / 240 General: Alert, No apparent distress HEENT: Atraumatic, Normocephalic Oral: No Gingival or Mucosal Lesions/ Ulcerations Psych/Mental Status: Anxious - minimal eye contact. Laboratory Results 03/28/19 02:05: Magnesium 2.2 Current Medications Aspirin (Aspirin, Baby) 162 mg PO DAILY@0800 [facility] Last Admin: 03/29/19 06:19 Dose: 162 mg Documented by: Atorvastatin Calcium (Lipitor) 20 mg PO QHS [facility] Last Admin: 03/28/19 21:24 Dose: 20 mg Documented by: Clopidogrel Bisulfate (Plavix) 75 mg PO DAILY [facility] Last Admin: 03/29/19 10:01 Dose: Not Given Documented by: Dicyclomine HCl (Bentyl) 20 mg PO Q6H PRN PRN PRN Reason: abdominal discomfort Enoxaparin Sodium (Lovenox) 40 mg SC DAILY [facility] Last Admin: 03/29/19 10:00 Dose: Not Given Documented by: Hydroxyzine Pamoate (Vistaril Pamoate Capsule) 50 mg PO Q6H PRN PRN PRN Reason: Mild Anxiety (score 1/3) Lorazepam (Ativan) 2 mg IV X1 PRN PRN Reason: Seizure Last Admin: 03/28/19 00:28 Dose: 2 mg Documented by: Methocarbamol (Methocarbamol) 750 mg PO Q6H PRN PRN PRN Reason: Muscle Aches Metoprolol Tartrate (Lopressor (Beta Luis)) 50 mg PO BID [facility] Last Admin: 03/29/19 10:00 Dose: Not Given Documented by: Morphine Sulfate () 2 mg IV Q4H PRN PRN PRN Reason: Pain Score 6-10/10 Last Admin: 03/28/19 21:25 Dose: 2 mg Documented by: [facility]it[facility]ivitamin) [facility] Last Admin: 03/29/19 10:00 Dose: Not Given Documented by: Nicotine (Nicoderm Cq (Pbkc)) 21 mg TRANSDERM. DAILY [facility] Last Admin: 03/29/19 10:01 Dose: Not Given Documented by: Nitroglycerin (Nitrostat) 0.4 mg SUBLINGUAL Q5M PRN PRN Reason: CARDIAC/CHEST PAIN Last Admin: 03/27/19 22:32 Dose: 1 tab Documented by: Sodium Chloride () 10 - 40 ml IV UD PRN PRN Reason: SALINE FLUSH Last Admin: 03/28/19 21:25 Dose: 10 ml Documented by: Discharge Diet: Low fat/ Low Cholesterol Discharge Activity: Return to Normal Activity Return to work on:: 03/29/19 Call your doctor if you observe: Shortness of breath, Increased palpitations (irregular heartbeat) Home Medications: Medications to take at Discharge Aspirin [Aspirin, Baby] 162 mg PO DAILY@0800 10/03/17 atorvastatin 80 mg tablet 20 mg PO DAILY #90 tab 01/18/19 Clopidogrel Bisulfate [Clopidogrel] 75 mg PO DAILY 03/27/19 Fluticasone 0.05% [Flonase Nasal [place]] 1 spray NASAL DAILY PRN 03/27/19 Metoprolol Tartrate [Lopressor (beta luis)] 50 mg PO BID #60 tab 03/29/19 Multivitamins,Therapeutic [Multivitamin] 1 tablet PO DAILYCM tablet 03/29/19 Following Prescrptions Were Given to Patient: Metoprolol Tartrate [Lopressor (beta luis)] 50 mg PO BID #60 tab Transmission Status: Pending to [facility] Primary Care Physician: Care Physician,No Primary [Primary Care Provider] - Please Follow Up With: primary care physician When: 2 weeks 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
--- NOTE | 2019-03-29 13:48 | PCA ---
List of area PCPs given to patient with discharge papers.
--- NOTE | 2019-03-30 13:58 | CASEMGMT ---
RN CM DC PHONE CALL DC DATE: 03.29.19 DC Disposition: Home Diagnosis on Discharge: New onset Afib LACE/STRATA: 21/05 Call deferred. Pt left AMA
== END 2019-03-29 13:55 | disposition home or self-care (01) | DRG 310 ==
LOC: ED 17:47 → PCU 18:02
PROVIDERS: Nurse Practitioner Family; Admitting Provider Family Medicine; Emergency Provider Emergency Medicine
DX: I48.91 Unspecified atrial fibrillation (principal); F17.210 Nicotine dependence, cigarettes, uncomplicated; I25.10 Atherosclerotic heart disease of native coronary artery without angina pectoris; I10 Essential (primary) hypertension; E78.5 Hyperlipidemia, unspecified; F10.10 Alcohol abuse, uncomplicated; Z86.711 Personal history of pulmonary embolism; Z95.5 Presence of coronary angioplasty implant and graft; Z79.82 Long term (current) use of aspirin; Z79.02 Long term (current) use of antithrombotics/antiplatelets; I25.2 Old myocardial infarction
CPT/HCPCS: 36415; 71046; 78452; 80048; 80061; 83735; 84443; 84484; 85025; 93005; 93017; 93306; 97802; 99285; 99406; A9500; J7030; A4216; J2785

== ENCOUNTER 2019-09-08 19:04 | Emergency (ER) | payer BC, SELFPAY ==
[2017-01-12 13:36] VITALS: BMI 26.6
[2019-03-27 19:31] VITALS: BMI 22.5
[2019-09-08 19:10] VITALS: BP 137/72; PULSE 94; RESP 21; TEMP 36.8; O2SAT 99; BMI 20.7
[2019-09-08 19:22] VITALS: O2SAT 98
--- NOTE | 2019-09-08 19:29 | CT_ITS ---
We are attempting to reach an attending provider to discuss findings. An addendum with communication details will be sent when the communication is complete. STUDY: CTA CHEST REASON FOR EXAM: Male, 54 years old. RT CHEST PAIN/DYSPNEA/LUNG CANCER-finished radiation treatments yesterday. Hx of afib, heart stent, HTN and HLD RADIATION DOSAGE (If Supplied By Facility): CTDIvol = ( 16.95 ) mGy, DLP = ( 398.65 ) mGycm TECHNIQUE: The examination was performed with the intravenous administration of Isovue 370 75ml via the left arm. Post-processing of the angiographic images was performed, with multiplanar reformation and 3D reconstruction. Individualized dose optimization techniques were used for this CT. COMPARISON: 04/08/2018. FINDINGS: The heart and pericardium are normal. The aorta is normal in caliber. No aneurysm or dissection. There is no evidence of pulmonary embolus. Opacification of the internal jugular veins is limited. However, nonocclusive venous thrombosis is suspected in the internal jugular veins bilaterally. Right subclavian vein appears at least partially occluded. Superior vena cava is compressed due to the paratracheal mass but is patent. 4.7 x 4.9 cm right paratracheal mass. 3.8 x 3.8 cm right hilar adenopathy. Shotty prevascular and subcarinal adenopathy. There is no pleural effusion. Mild centrilobular and paraseptal emphysema in the upper lobes, greater on the right. Mild bilateral dependent atelectasis, greater on the right. Fibrotic changes in the right middle lobe Faint patchy opacities in the right upper lobe may represent acute alveolitis, fibrotic or post radiation change. Stone in the gallbladder neck. No demonstrated pericholecystic inflammatory changes. Old healed left rib fractures. No acute osseous abnormality. CT/CTA Chest W/WO Contrast IMPRESSION: 1. No evidence of pulmonary embolus. 2. Findings suspicious for right subclavian and bilateral internal jugular venous thrombosis. If previously unknown, consider bilateral upper extremity duplex venous ultrasound. 3. Superior vena cava is patent but compressed. Clinical correlation recommended to exclude SVC syndrome. 4. Mild patchy opacities in the right upper lobe are indeterminate and may represent focal infection versus scarring. 5. Right paratracheal mass and right hilar adenopathy consistent with history of malignancy. 6. Mild emphysematous changes. 7. Cholelithiasis. Electronically Signed: Vandana Mtz MD at 21:06 EDT Tel , Service support ,
--- NOTE | 2019-09-08 19:29 | EKG12_ITS ---
Test Reason : CP Blood Pressure : / mmHG Vent. Rate : 092 BPM Atrial Rate : 092 BPM P-R Int : 132 ms QRS Dur : 092 ms QT Int : 370 ms P-R-T Axes : 027 009 059 degrees QTc Int : 457 ms Sinus rhythm with occasional Premature ventricular complexes Otherwise normal ECG Confirmed by RUTH VENTURA, MALCOM ([id number]), script editor THANG ANGELA ([id number]) on 09/10/2019 1:56:10 PM Referred By: GUSTAVO/CONNOR Confirmed By:EB MIRANDA MD
[2019-09-08 19:41] VITALS: O2SAT 99
[2019-09-08 19:45] LABS: Absolute Lymphocyte Count 0.56 X10^3/uL (0.83-4.51); Basophil# 0.01 X10^3/uL; Basophil% 0.2 % (0-1); Eosinophils% 2.4 % (0-5); Hematocrit 36.9 % (40-54); Hemoglobin 12.2 g/dL (13.0-16.5); Lymphocyte # 0.56 X10^3/ul (4.0); Lymphocyte % 13.2 % (19-41); Mean Corp Hgb Conc 33.1 g/dL (32-36); Mean Corpuscular Hgb 29.3 pg (27.0-32.0); Mean Corpuscular Volume 88.7 fL (80-94); Mean Platelet Vol. 8.9 fl (6.2-12.0); Monocyte# 0.59 X10^3/uL; Monocyte% 13.9 % (0-10); NRBC Flagged by Analyzer 0 % (0-5); Neutrophil # 2.98 X10^3/uL (2.7-7.7); Neutrophil % 70.1 % (47-70); POSITIVE DIFFERENTIAL YES; Platelet Count 254 K/mm3 (150-450); RBC Distribution Width CV 13.6 % (11.6-14.6); RBC Distribution Width SD 44.2 fl (35.1-43.9); Red Blood Count 4.16 M/mm3 (4.6-6.2); White Blood Count 4.3 K/mm3 (4.4-11.0)
[2019-09-08 19:46] LABS: Differential Indicated SCAN CRITERIA MET
[2019-09-08] MEDS: Aspirin 81 MG TAB.CHEW 324 MG PO (19:48)
[2019-09-08] MEDS: LORazepam 2 MG/ML Syringe 1 MG IV (19:48)
[2019-09-08 19:49] LABS: Prothrombin Time (Protime)PT. 13.1 SECONDS (11.7-14.9)
[2019-09-08 19:50] LABS: Partial Thromboplast Time 31.4 Seconds (24.1-36.2)
[2019-09-08 19:59] LABS: Anion Gap 8 (5-15); BUN 6 mg/dL (7-18); BUN/Creat Ratio 9.1 RATIO (10-20); Calcium,Total 8.9 mg/dL (8.5-10.1); Chloride 106 mmol/L (98-107); Creatinine, Serum 0.66 mg/dL (0.70-1.30); EST Glomerular Filtration Rate 133 mL/min (>60); Est Glom Filt Rate - Afr Amer 162 mL/min (>60); Estimated Creatinine Clearance 136.46 ml/min; Glucose 76 mg/dL (74-106); Potassium 3.3 mmol/L (3.5-5.1); Sodium Level 139 mmol/L (136-145)
[2019-09-08 20:10] LABS: Differential Comment SCANNED
--- NOTE | 2019-09-08 20:47 | ED.DCSUM_ITS ---
- ER Visit Summary Date of Service: 09/08/19 Chief Complaint: Chest pain History of Present Illness: The patient is a 54 M with a history of coronary disease, [place], atrial fibrillation, PE, active lung cancer, hypertension, hyperlipidemia, smoking, and alcohol use. Presents today for right side chest pain. The pain has been constant for the past 2 weeks. It is associated with shortness of breath. He was told he had pleurisy with similar pain in the past. He thinks his symptoms are also from anxiety. Denies fevers or any other associated symptoms. He takes aspirin and Plavix but no other blood thinners. Physical Examination: Afebrile and vital signs unremarkable. Patient is tearful and appears anxious. Heart regular. Lungs clear. Abdomen soft. Extremities nontender with no edema. Test Results: EKG shows sinus rhythm with PVCs at a rate of 92. White count 4.3, hemoglobin 12.2, potassium 3.3. Troponin normal. Coags normal. Alcohol level 293. CTA pending. Emergency Department Course and Treatment: Patient had an EKG which showed no acute changes. He was placed on a monitor. Treated with aspirin. White count 4.3, hemoglobin 12.2, potassium 3.3, BUN 6, creatinine 0.66. INR and PTT normal. Troponin normal. Alcohol 293. CT chest showed right subclavian and IJ thrombi with SVC compression, right upper lobe opacities and right paratracheal masses and adenopathy consistent with his known cancer. I believe the patient's CT results explain his right side chest pain and shortness of breath. I contacted [facility] where he receives his oncology and radiation care. Patient was accepted by Dr. Kidd and they will discuss with vascular surgery as well. He was started on a heparin bolus and drip. [facility] requested COVID testing. Results are pending at this time. 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 It may contain incorrect words, spelling, and punctuation that were not noted in review of the chart prior to signing ED Disposition - Plan for ED Patient: Referrals: Care Physician,No Primary [Primary Care Provider] -
[2019-09-08 21:10] VITALS: BP 110/72; PULSE 101; RESP 22; O2SAT 94
[2019-09-08] MEDS: Heparin Injection (Vial) 5,000 UNIT/ML VIAL 5000 UNIT IV (21:48)
[2019-09-08] MEDS: HEPARIN/D5w 25,000 UNITS 25,000 UNITS/250 ML IV.SOLN. 11 UNITS IV (21:50)
[2019-09-08] MEDS: fentaNYL 100 MCG/2 ML Ampul 50 MCG IV ×2 (21:53→23:47)
--- NOTE | 2019-09-08 22:13 | ED.RN ---
PER PT REQUEST, SISTER WYATT CALLED TO UPDATE ON PT STATUS AND TRANSFER TO [facility].
[2019-09-08 23:41] VITALS: BP 115/72; PULSE 93; RESP 24
--- NOTE | 2019-09-09 00:21 | ED.RN ---
PT REFUSED TO HAVE COVID TESTING DONE, PT REFUSED TO SIGN CONSENT FOR TRANSFER, PT STATED JUST CALL A CAB I WANT TO GO HOME
[2019-09-09] MEDS: fentaNYL 100 MCG/2 ML Ampul 50 MCG IV (00:57)
--- NOTE | 2019-09-09 01:25 | ED.RN ---
PT REFUSED ZOFRAN.
[2019-09-09 01:26] VITALS: BP 115/72; PULSE 93; RESP 24; TEMP 36.8; O2SAT 94
--- NOTE | 2019-09-09 01:41 | ED.RN ---
SPOKE WITH WYATT JUÁREZ, PT'S SISTER AND INFORMED HER PT WAS BEING TRANSFERRED TO [facility] ROOM [id number].
[2019-09-10 12:13] LABS: Pathologist Review Reviewed
== END 2019-09-09 01:50 | disposition short-term general hospital (02) ==
LOC: ED 19:51
PROVIDERS: Emergency Provider Emergency Medicine
DX: C34.90 Malignant neoplasm of unspecified part of unspecified bronchus or lung (principal); I87.1 Compression of vein; F10.129 Alcohol abuse with intoxication, unspecified; Y90.9 Presence of alcohol in blood, level not specified; I49.3 Ventricular premature depolarization; I10 Essential (primary) hypertension; F41.9 Anxiety disorder, unspecified; I25.10 Atherosclerotic heart disease of native coronary artery without angina pectoris; I25.2 Old myocardial infarction; I48.91 Unspecified atrial fibrillation; E78.00 Pure hypercholesterolemia, unspecified; Z86.711 Personal history of pulmonary embolism; Z95.5 Presence of coronary angioplasty implant and graft; Z79.02 Long term (current) use of antithrombotics/antiplatelets; Z79.82 Long term (current) use of aspirin; Z79.899 Other long term (current) drug therapy; Z72.0 Tobacco use
CPT/HCPCS: 71275; 80048; 80320; 84484; 85025; 85610; 85730; 93005; 96365; 96366; 96374; 96375; 96376; 99285; Q9967; A4216; G0480

== ENCOUNTER 2019-10-28 15:00 | Inpatient (IN) | payer BC, SELFPAY ==
[2017-01-12 13:36] VITALS: BMI 26.6
[2019-10-28] VITALS (10 sets, daily range): BP systolic 107–129; BP diastolic 64–95; PULSE 85–116; RESP 12–24; TEMP 36.6–37.1; O2SAT 88–100; BMI 21.2; BMI 20.7
--- NOTE | 2019-10-28 15:34 | EKG12_ITS ---
Test Reason : CP Blood Pressure : / mmHG Vent. Rate : 103 BPM Atrial Rate : 103 BPM P-R Int : 140 ms QRS Dur : 080 ms QT Int : 368 ms P-R-T Axes : 072 006 059 degrees QTc Int : 482 ms Sinus tachycardia with Premature atrial complexes Possible Left atrial enlargement Nonspecific ST and T wave abnormality Abnormal ECG Confirmed by ED VENTURA, GURPREET ([id number]), sound editor THANG ANGELA ([id number]) on 10/30/2019 1:25:54 PM Referred By: ALEJANDRO Confirmed By:GURPREET WARD MD
--- NOTE | 2019-10-28 15:37 | ED.DCSUM_ITS ---
- ER Visit Summary Date of Service: 10/28/19 Chief Complaint: As of breath with cough of brown and yellow phlegm with nausea and vomiting History of Present Illness: The patient is a 54 M history of CAD with 2 cardiac stents COPD, lung CA undergoing chemo and radiation. Patient had chemotherapy 1 to 2 weeks ago. States in the last several days he has had a cough with shortness of breath brown to yellow phlegm. Also nausea vomiting since last night. No hematemesis. No melena. No fever. He has had some chills. Physical Examination: Middle-aged male vital signs stable he is afebrile temperature 97.9. H EENT exam unremarkable. Neck nontender no lymphadenopathy. Lungs expiratory wheezing throughout. Heart regular rhythm rate about 105 no murmur. Chest were nontender. No crepitus. Abdomen soft nontender normal bowel sounds no peritoneal signs. Nondistended. Patient moving all 4 extremities. Neurovascular intact. Calves are nontender without edema or cords. Equal symmetrical department secretary strength. Equal symmetrical dorsi plantarflexion. Back nontender. Neurologically is awake and alert with no focal motor deficits. Test Results: Chest x-ray portable 1 view read both myself the radiologist showed no acute abnormality. Normal cardiac silhouette mediastinum. No infiltrate. EKG sinus tachycardia rate of 103 with PACs. No acute signs of TN or ischemia. CBC white count 2.6 hemoglobin 14. Platelets of 122,000. Chemistries unremarkable gap of 8 creatinine 1. Troponin normal. COVID negative. Emergency Department Course and Treatment: Patient be treated with both DuoNeb and albuterol aerosols along with Solu-Medrol for his wheezing and shortness of breath. He has a history of COPD. Will be given IV fluids and Zofran for his nausea. Patient was also treated with morphine IV x2. Treatment Plan: Repeat exam is feeling better. Aerosols have greatly improved his wheezing and difficulty breathing. I discussed with the patient being discharged on prednisone. He states he did not feel comfortable being discharged to home. He strongly wanted to be admitted. I spoke to the hospitalist who will 24-hour observe the patient overnight. Disposition: Observation admission. Impression: Acute nausea and vomiting Acute productive cough History of lung CA with COPD Exacerbation of COPD Anemia secondary to chemotherapy. This note was generated with [employer] software. It may contain incorrect words, spelling, and punctuation that were not noted in review of the chart prior to signing ED Disposition - Plan for ED Patient: Referrals: Care Physician,No Primary [Primary Care Provider] -
[2019-10-28] MEDS: 0.9% Normal Saline 1,000 ML 1000 ML IV (16:28)
[2019-10-28] MEDS: Ondansetron 4 MG/2 ML Vial IV ×2 (16:28→21:46)
[2019-10-28] MEDS: MethylPREDNISolone 125 MG/2 ML Vial IV (16:28)
[2019-10-28] MEDS: Morphine 4 MG/ML Syringe 6 MG IV (16:43)
--- NOTE | 2019-10-28 16:45 | RAD_ITS ---
STUDY: X-RAY CHEST REASON FOR EXAM: Male, 54 years old. CHEST PAIN, SOB, NAUSEA AND VOMITING -- HX OF LUNG CANCER, LAST CHEMO TREATMENT WAS ON TUESDAY TECHNIQUE: AP COMPARISON: 03/27/2019 FINDINGS: Left arm PICC is present with tip extending to the cavoatrial junction. There is a granuloma in the left lung base. No airspace consolidation. There is no demonstrated pleural abnormality. Normal size heart. Normal mediastinum and stephen. Normal visualized pulmonary arteries. Normal visualized aortic arch and descending thoracic aorta. Normal visualized thoracic spine. Normal visualized ribs, clavicles, and shoulders. There is no demonstrated abnormality of the visualized soft tissue structures of the upper abdomen. RAD/Chest 1 View (Portable) IMPRESSION: Stable, nonacute portable x-ray examination of the chest. Electronically Signed: Giuseppe Cohen MD ([place]) at 16:59 EDT , Service support ,
[2019-10-28 16:48] LABS: Absolute Lymphocyte Count 0.15 X10^3/uL (0.83-4.51); Absolute Neutrophil Count 1.9 X10^3/uL (2.0-7.7); Basophil# 0.01 X10^3/uL; Basophil% 0.4 % (0-1); Hematocrit 42.2 % (40-54); Hemoglobin 14.4 g/dL (13.0-16.5); Lymphocyte # 0.15 X10^3/ul (4.0); Lymphocyte % 5.7 % (19-41); Mean Corp Hgb Conc 34.1 g/dL (32-36); Mean Corpuscular Hgb 29.1 pg (27.0-32.0); Mean Corpuscular Volume 85.3 fL (80-94); Mean Platelet Vol. 10.2 fl (6.2-12.0); Monocyte# 0.53 X10^3/uL; Monocyte% 20.2 % (0-10); NRBC Flagged by Analyzer 0 % (0-5); Neutrophil # 1.89 X10^3/uL (2.7-7.7); Neutrophil % 71.8 % (47-70); POSITIVE DIFFERENTIAL YES; POSITIVE MORPHOLOGY YES; Platelet Count 122 K/mm3 (150-450); RBC Distribution Width CV 14.6 % (11.6-14.6); RBC Distribution Width SD 44.8 fl (35.1-43.9); Red Blood Count 4.95 M/mm3 (4.6-6.2); White Blood Count 2.6 K/mm3 (4.4-11.0)
[2019-10-28 16:51] LABS: Differential Indicated SCAN CRITERIA MET
[2019-10-28] MEDS: Ipratropium/Albuterol Sulfate 3 ML AMPUL.NEB INHALATION ×2 (17:00→19:56)
[2019-10-28] MEDS: Albuterol 2.5 MG/3 ML VIAL.NEB. INHALATION (17:00)
[2019-10-28 17:07] LABS: Anion Gap 8 (5-15); BUN 11 mg/dL (7-18); BUN/Creat Ratio 10.9 RATIO (10-20); Calcium,Total 8.7 mg/dL (8.5-10.1); Chloride 96 mmol/L (98-107); Creatinine, Serum 1.01 mg/dL (0.70-1.30); EST Glomerular Filtration Rate 82 mL/min (>60); Est Glom Filt Rate - Afr Amer 99 mL/min (>60); Estimated Creatinine Clearance 91.19 ml/min; Glucose 145 mg/dL (74-106); Potassium 3.5 mmol/L (3.5-5.1); Sodium Level 138 mmol/L (136-145)
[2019-10-28 17:16] LABS: Probe Check PASS; Specimen Processing Control PASS
[2019-10-28] MEDS: morphine 8 MG/ML Syringe 6 MG IV (18:15)
--- NOTE | 2019-10-28 18:25 | PCM.HP.STD ---
Problem List (1) Essential (primary) hypertension Status: Chronic (2) Nicotine dependence Status: Chronic Qualifiers: Substance use status: unspecified nicotine-induced disorder (3) HLD (hyperlipidemia) Status: Chronic Qualifiers: Hyperlipidemia type: unspecified Qualified Code(s): E78.5 - Hyperlipidemia, unspecified (4) Alcohol abuse Status: Chronic (5) Atherosclerosis of coronary artery of [place] heart with angina pectoris Status: Chronic Qualifiers: Coronary Disease-Associated Artery/Lesion type: unspecified vessel or lesion type Qualified Code(s): I25.119 - Atherosclerotic heart disease of [place] coronary artery with unspecified angina pectoris Comment: BMS-Prox and Distal RCA 12/23/16 History of Present Illness Date of Admission: 10/28/19 Chief Complaint: Nausea, right sided chest pain, SOB - 4 days The patient is a 54 year old M with past medical history of lung CA, who had his 1st chemotherapy on Tuesday10/22/19, with [facility] oncology(Dr. Can), CAD status post stents, paroxysmal atrial fibrillation, history of PE, hypertension, hyperlipidemia, nicotine and alcohol dependence, status post recent right subclavian and IJ thrombi with SVC compression, right upper lobe opacities and right paratracheal masses and adenopathy consistent with his known cancer. Patient comes in with complaints of nausea and fatigue and cough ongoing since 10/24/19. Patient has since been feeling very fatigued, nauseated, unable to eat anything. He denied any diarrhea or abdominal pain. He has been unable to take his pain medications or nausea medication. He denied any fever or chills. He has been coughing up purulent sputum. He admits to right-sided chest pain, worse from his shoulder to the lower chest. He reports that is worse in the area of the right thoracotomy in June 2019. Vitals in the ED showed temperature of 90 7.9F, heart rate 105, blood pressure 127/77, respiratory was 20, SPO2 is 100% on room air. Later dropped to 88% on room air and improved to 94% on 3 L of oxygen. WBC count is 2.6, hemoglobin is 14.4, platelet count is 122, sodium 138, potassium 3.5, chloride 96, bicarbonate 34, BUN 11, creatinine 1.01, baseline creatinine 0.66, troponin is negative. Admitting chest x-ray showed left arm PICC line, granuloma in the left lung base, no airspace consolidation. Past Medical History Past Medical History (Chronic Problems): Chronic Problems (Last Updated 04/10/18 @ 11:33 by Raine Huber) Essential (primary) hypertension (Chronic) Nicotine dependence (Chronic) HLD (hyperlipidemia) (Chronic) Alcohol abuse (Chronic) NSTEMI (non-ST elevated myocardial infarction) (Chronic 04/07/18) Atherosclerosis of coronary artery of [place] heart with angina pectoris (Chronic) BMS-Prox and Distal RCA 12/23/16 History of coronary artery stent placement (Chronic 12/23/16) BMS-Prox and Distal RCA 12/23/16 Medical History: Medical History (Last Updated 04/10/18 @ 11:34 by Raine Huber) Essential (primary) hypertension (Chronic) I10 Nicotine dependence (Chronic) F17.200 HLD (hyperlipidemia) (Chronic) E78.5 Alcohol abuse (Chronic) F10.10 NSTEMI (non-ST elevated myocardial infarction) (Chronic) Onset Date: 04/07/18 I21.4 Atherosclerosis of coronary artery of [place] heart with angina pectoris (Chronic) I25.119 BMS-Prox and Distal RCA 12/23/16 Anxiety F41.9 Acute pulmonary embolism (Resolved) Onset Date: 04/08/18 I26.99 STEMI (ST elevation myocardial infarction) (Resolved) 12/23/16 STEMI (ST elevation myocardial infarction) I21.3 12/23/16 Noncompliance (Inactive) Z91.19 Allergies No Known Allergies Allergy (Verified 10/28/19 15:01) Home Medications: Ambulatory Orders Medication Instructions Recorded Aspirin [Aspirin, Baby] 162 mg PO DAILY@0800 10/03/17 atorvastatin 80 mg tablet 20 mg PO DAILY #90 tab 01/18/19 Clopidogrel Bisulfate [Clopidogrel] 75 mg PO DAILY 03/27/19 Fluticasone 0.05% [Flonase Nasal 1 spray NASAL DAILY PRN 03/27/19 [place]] Metoprolol Tartrate [Lopressor 50 mg PO BID #60 tab 03/29/19 (beta luis)] Multivitamins,Therapeutic 1 tab PO DAILYCM tab 03/29/19 [Multivitamin] Clonazepam [Klonopin] 0.5 mg PO Q8H PRN PRN 09/08/19 Escitalopram Oxalate [Lexapro] 10 mg PO DAILY 09/08/19 Folic Acid 1 mg PO DAILY 09/08/19 Lorazepam 1 tab PO Q8 PRN 09/08/19 Morphine [Morphine IR] 15 mg PO Q4H PRN PRN 09/08/19 Surgical History: Surgical History (Last Updated 04/10/18 @ 11:33 by Raine Huber) History of coronary artery stent placement (Chronic) Onset Date: 12/23/16 Z95.5 BMS-Prox and Distal RCA 12/23/16 History of left heart catheterization Onset Date: 04/07/18 Z98.890 12/23/16- PCI with BM stent to prox RCA & distal RCA; 01/12/17- patent BM stents; Surgical History: - - PCI x 2, T+A, L inguinal hernia repair, status post left neck surgery for abscess, status post left inguinal hernia repair Psychiatric History: Anxiety, Depression Lives: Alone Smoking Status: Current every day smoker Tobacco Use: Cigarettes Alcohol: None Drugs: None - *Family History Sibling Family History: Family History (Last Reviewed 03/27/19 @ 18:19 by Mary Menjivar NP, [employer] MANAGER-C) Father Myocardial infarction, Onset Age: 36 Mother Myocardial infarction Cancer History Items: - - Patient notes a history of a sister who underwent a CABG early in life. Maternal Family History: Family History (Last Reviewed 03/27/19 @ 18:19 by Mary Menjivar NP, [employer]ARD MANAGER-C) Father Myocardial infarction, Onset Age: 36 Mother Myocardial infarction Cancer History Items: Cancer - breast, Heart Disease - [place] Paternal Family History: Family History (Last Reviewed 03/27/19 @ 18:19 by Mary Menjivar NP, [employer] MANAGER-C) Father Myocardial infarction, Onset Age: 36 Mother Myocardial infarction Cancer History Items: - - Patient notes a paternal family history of heart disease, passing secondary to fatal [place] at age 36. Review of Systems Constitutional: Reports: Anorexia, Malaise, Weakness, Fatigue. Denies: Chills, Fever, Weight Change Eyes: Denies: Blurred vision, Cataracts, Conjunctivae Inflammation, Pain HEENT: Denies: Difficulty Hearing, Difficulty Swallowing, Head Aches, Hearing Changes, Sinus Congestion, Sinus Drainage, Sore Throat Cardiovascular: Reports: Chest Pain, Light Headedness. Denies: Claudication, Orthopnea, Palpitations, Paroxysmal Noc. Dyspnea Respiratory: Reports: Cough, Shortness of breath at rest, Shortness of breath upon exertion, Wheezing. Denies: Hemoptysis, Sputum production Gastrointestinal: Reports: Nausea. Denies: Abdominal Pain, Constipation, Hematemesis, Hematochezia, Vomiting Genitourinary: Denies: Dysuria, Frequency, Incontinence, Nocturia Musculoskeletal: Denies: Joint Pain, Joint Tenderness Skin: Denies: Dryness, Jaundice, Pruritis, Rash, Wounds Neurological: Denies: Difficulty swallowing, Focal weakness, Numbness, Tingling Psychiatric: Denies: Anxiety, Depression, Homicidal Ideations, Suicidal Ideations Hematologic/ Lymphatic: Denies: Easy Bruising, Easy Bleeding VTE Information - Inpt Only VTE Present on Admission: No VTE Pharm Prophylaxis ordered?: Yes - Physical Exam Vitals/I&O's: Vital Signs Temp Pulse Resp BP Pulse Ox 98.8 F 108 H 18 117/95 H 95 10/28/19 18:22 10/28/19 18:22 10/28/19 18:22 10/28/19 18:22 10/28/19 18:22 Oxygen Flow Rate (L/min) 3 Oxygen Delivery Method Room Air Weight: 77.111 kg Body Mass Index (BMI) 21.2 General: Alert, Oriented x3, Cooperative, - - Appears cachectic, irritable, not pale, not jaundiced , oral thrush, mildly dehydrated HEENT: Atraumatic, PERRLA, EOMI, Normocephalic Oral: Dry Mucosa Neck: Supple Lungs: Diminished, Wheezes Cardiovascular: Regular rate, Regular Rhythm, Normal S1, Normal S2, Tachycardic Abdomen: Bowel Sounds Present, Soft, Non Tender, Non-Distended, No Hepato-splenomegaly Extremities: No edema Skin: No rashes Musculoskeletal: No Tenderness to Palpation of Joints or Extremities Lymphatic: No Cervical, Supraclavicular, or Inguinal Adenopathy Neurological: Cranial nerves II-XII grossly intact, Neuro grossly intact Psych/Mental Status: Normal Affect, Appropriate Laboratory Results 10/28/19 16:00: COVID-19 (LEONELA) Negative 10/28/19 16:20: WBC 2.6 L, RBC 4.95, Hgb 14.4, Hct 42.2, MCV 85.3, MCH 29.1, MCHC 34.1, RDW Std Deviation 44.8 H, RDW Coeff of Radha 14.6, Plt Count 122 L, MPV 10.2, Immature Gran % (Auto) 1.900 H, Neut % (Auto) 71.8 H, Lymph % (Auto) 5.7 L, [place]oup % (Auto) 20.2 H, Eos % (Auto) 0.0, Baso % (Auto) 0.4, Absolute Neuts (auto) 1.9 L, Absolute Lymphs (auto) 0.15 L, Nucleated RBC % 0, Differential Comment , Diff Path Review June foll 10/28/19 16:20: Sodium 138, Potassium 3.5, Chloride 96 L, Carbon Dioxide 34.0 H, Anion Gap 8, BUN 11, Creatinine 1.01, Estim Creat Clear Calc 91.19, Est GFR (MDRD) Af Amer 99, Est GFR (MDRD) Non-Af 82, BUN/Creatinine Ratio 10.9, Glucose 145 H, Calcium 8.7, Troponin I < 0.015 Assessment/Plan All Active Problems (Last Updated 04/10/18 @ 11:34 by Raine Huber) New onset atrial fibrillation (Acute) Acute pulmonary embolism (Resolved 04/08/18) Chest pain (Resolved) Intermittent palpitations (Resolved) STEMI (ST elevation myocardial infarction) (Resolved) 1. Acute COPD exacerbation, in a patient with known history of COPD/lung CA COVID-19 test negative Started on breathing treatment and IV Solu-Medrol Will continue same, IV Levaquin 750 mg daily, sputum culture 2. Debility related to lung cancer status post chemotherapy to recent start of chemotherapy Patient is neutropenic with WBC count 2.6, absolute neutrophil count is 1.9 We will hydrate patient, continue to monitor WBC count in a.m. Neutropenic precautions 3. Right-sided musculoskeletal pain, patient is on chronic narcotic pain medicines Unable to take in account of nausea from #2 Would continue on IV morphine 4. CAD status post stents, continue on aspirin, statin, Plavix, metoprolol 5. Chronic diastolic CHF, not in acute exacerbation, will continue to monitor 6. Anxiety disorder, continue on clonazepam, Lexapro 7. Nicotine dependence, on replacement 8. History of chronic alcohol use disorder, patient states he has quit drinking, would monitor 9. DVT prophylaxis with Lovenox subcu 10. CODE STATUS - full code I explained in details the various types of CODE STATUS-full code, DNR CCA, DNR CC. Patient stated that he wanted to be resuscitated as he wanted to be alive. Time spent discussing CODE STATUS 16 minutes Inpatient E&M: 64136 Init Hosp L3 Procedures: 52482 Advncd Care Plan 30 Min
[2019-10-28 19:21] LABS: Magnesium 1.3 mg/dL (1.6-2.6)
[2019-10-28 19:51] LABS: AST(SGOT) 16 U/L (15-37); Alanine Aminotransfer ALT/SGPT 15 U/L (16-61); Albumin, Serum 3.5 g/dL (3.2-5.0); Alkaline Phosphatase 109 U/L (45-117); Bilirubin, Direct 0.28 mg/dL (0.00-0.30); Protein, Total 7.5 g/dL (6.4-8.2)
[2019-10-28] MEDS: Metoprolol(XL)Succ 50 MG Tablet PO (20:03)
[2019-10-28] MEDS: 0.9% Saline Lock 10 ML Syringe IV ×3 (20:03→22:14)
[2019-10-28] MEDS: levoFLOXacin IV 750 MG/150 ML BAG 100 MG IV (20:04)
[2019-10-28] MEDS: 0.9% Normal Saline 1,000 ML 125 ML IV (20:04)
[2019-10-28] MEDS: Morphine 2 MG/ML Syringe IV (20:21)
[2019-10-28] MEDS: BMX LIQUID 180 ML 10 ML PO (21:38)
[2019-10-28] MEDS: HYDROmorphone 0.5 MG/0.5 ML SYRINGE IV (22:15)
[2019-10-29] VITALS (8 sets, daily range): BP systolic 94–127; BP diastolic 55–82; PULSE 7–95; RESP 16–20; TEMP 36.3–36.8; O2SAT 94–98; BMI 20.7
[2019-10-29] MEDS: Magnesium Sulfate 4gm/100mL 4 GM/100 ML IV.SOLN. IV (00:46)
[2019-10-29] MEDS: HYDROmorphone 1 MG/ML Syringe IV ×5 (00:46→22:09)
[2019-10-29] MEDS: LORazepam 2 MG/ML Syringe 1 MG IV (02:08)
[2019-10-29 06:17] LABS: Hematocrit 37.5 % (40-54); Hemoglobin 12.4 g/dL (13.0-16.5); Mean Corp Hgb Conc 33.1 g/dL (32-36); Mean Corpuscular Hgb 28.8 pg (27.0-32.0); Mean Corpuscular Volume 87.2 fL (80-94); Mean Platelet Vol. 10.5 fl (6.2-12.0); POSITIVE COUNT YES; POSITIVE DIFFERENTIAL YES; POSITIVE MORPHOLOGY YES; Platelet Count 109 K/mm3 (150-450); RBC Distribution Width CV 14.6 % (11.6-14.6); RBC Distribution Width SD 45.9 fl (35.1-43.9); White Blood Count 2.3 K/mm3 (4.4-11.0)
[2019-10-29 06:20] LABS: Differential Indicated MANUAL DIFF
[2019-10-29] MEDS: Ondansetron 4 MG/2 ML Vial IV (06:23)
[2019-10-29 06:42] LABS: ALB/GLOB Ratio 0.8 RATIO (0.9-2.4); AST(SGOT) 9 U/L (15-37); Alanine Aminotransfer ALT/SGPT 14 U/L (16-61); Alkaline Phosphatase 96 U/L (45-117); Anion Gap 5 (5-15); BUN 13 mg/dL (7-18); BUN/Creat Ratio 14.2 RATIO (10-20); Calcium,Total 8.3 mg/dL (8.5-10.1); Chloride 97 mmol/L (98-107); Creatinine, Serum 0.91 mg/dL (0.70-1.30); EST Glomerular Filtration Rate 92 mL/min (>60); Est Glom Filt Rate - Afr Amer 111 mL/min (>60); Globulin 3.7 g/dL (2.2-4.2); Glucose 152 mg/dL (74-106); Potassium 3.7 mmol/L (3.5-5.1); Protein, Total 6.7 g/dL (6.4-8.2); Sodium Level 137 mmol/L (136-145)
[2019-10-29 07:03] LABS: Lymphocyte 12 % (19-41); Metamyelocyte 4 % (0-1); Monocyte 13 % (0-10); Neutrophil-Band 16 % (0-5); Neutrophil-Segmented 59 % (47-70); Total Cells Counted 100 (MANUAL DIFF)
[2019-10-29 07:05] LABS: Absolute Lymphocyte Count 0.28 X10^3/uL (0.83-4.51); Absolute Neutrophil Count 1.7 X10^3/uL (2.0-7.7); Lymphocyte # 0.28 X10^3/ul (4.0); Neutrophil # 1.73 X10^3/uL (2.7-7.7); Platelet Estimate SLT DEC (ADEQ); Red Cell Morphology NORM C+C NORMAL (NORM C&C)
[2019-10-29] MEDS: Ipratropium/Albuterol Sulfate 3 ML AMPUL.NEB INHALATION ×2 (07:08→19:18)
--- NOTE | 2019-10-29 07:33 | PN_ITS ---
Subjective: Patient overnight with ongoing difficulty with oral intake secondary to pain with swallowing, requiring crushing or refusing oral intake initially. Patient with ongoing chronic unchanged chest discomfort attributed to his underlying lung cancer with significant metastatic disease and notes this is ongoing, constant, 4-6 out of 10, unchanged, worse with inspiratory increased effort attempts. Patient notes breathing improved with less coughing and no wheezing currently on IV steroids but has been so weak he is not been up to ambulate and only been able to transition from bed to chair. Discussed patient's status at length including depression, difficulty sleeping and need for palliative care involvement for pain management to which patient is eventually amenable. Patient denies fevers, chills, nausea, emesis, abdominal pain or worsened dyspnea. Objective: Physical Examination: General: awake, alert, oriented x 3 and cooperative, seated upright in the MS bed, transitioned to chair with PT/OT. Skin: normal color, turgor, no icterus, cyanosis. HEENT: AT/NC, EOMI, PERRLA, mildly dry MM. Lungs: Diminished BS, > BL bases, decreased effort secondary to pleuritic pain, no rales, ronchi, currently resolved wheezing. Heart: Regular rate and rhythm; no gallop, rub audible. Abdomen: soft, NTTP, ND, normal BS. Extremities: no cyanosis, clubbing, or edema. Neurological: patient awake, alert, oriented x 3; cognitive function appears intact; pupils equally reactive to light and accomodation; cranial nerves II-XII grossly normal, moving all 4 extremities, no focal deficits, strength moderately to severely globally decreased secondary to acute presentation and underlying comorbidities. Psychiatric: affect appears flat, frequently avoiding eye contact, admits to depression, no obvious acute evidence of anxiety feelings. Vitals/I&O's: Vital Signs Temp Pulse Resp BP Pulse Ox 97.4 F L 95 18 121/80 H 97 10/29/19 03:55 10/29/19 07:08 10/29/19 07:08 10/29/19 03:55 10/29/19 03:55 Oxygen Flow Rate (L/min) 3 Oxygen Delivery Method Room Air Weight: 166 lb 7.184 oz Body Mass Index (BMI) 20.7 Intake and Output for Last 24 Hours 10/27/19 10/28/19 10/29/19 23:59 23:59 23:59 Intake Total 1152.08 / 1182.08 621.67 / 621.67 Output Total 250 / 250 Balance 1152.08 / 1182.08 371.67 / 371.67 Microbiology Past 72 Hours 10/28/19 16:00 Mucosa - Nasopharyngeal Respiratory Panel (PCR) - Final Laboratory Results 10/28/19 16:00: COVID-19 (LEONELA) Negative 10/28/19 16:20: WBC 2.6 L, RBC 4.95, Hgb 14.4, Hct 42.2, MCV 85.3, MCH 29.1, MCHC 34.1, RDW Std Deviation 44.8 H, RDW Coeff of Radha 14.6, Plt Count 122 L, MPV 10.2, Immature Gran % (Auto) 1.900 H, Neut % (Auto) 71.8 H, Lymph % (Auto) 5.7 L , [place] % (Auto) 20.2 H, Eos % (Auto) 0.0, Baso % (Auto) 0.4, Absolute Neuts (auto) 1.9 L, Absolute Lymphs (auto) 0.15 L, Nucleated RBC % 0, Differential Comment , Diff Path Review June10/28/19 16:20: Sodium 138, Potassium 3.5, Chloride 96 L, Carbon Dioxide 34.0 H, Anion Gap 8, BUN 11, Creatinine 1.01, Estim Creat Clear Calc 91.19, Est GFR (MDRD) Af Amer 99, Est GFR (MDRD) Non-Af 82, BUN/Creatinine Ratio 10.9, Glucose 145 H, Calcium 8.7, Troponin I < 0.015 10/28/19 16:20: Total Bilirubin 0.80, Direct Bilirubin 0.28, AST 16, ALT 15 L, Alkaline Phosphatase 109, Total Protein 7.5, Albumin 3.5, Globulin 4.0 10/28/19 16:20: Magnesium 1.3 L 10/29/19 06:10: WBC 2.3 L, RBC 4.30 L, Hgb 12.4 L, Hct 37.5 L, MCV 87.2, MCH 28.8, MCHC 33.1, RDW Std Deviation 45.9 H, RDW Coeff of Radha 14.6, Plt Count 109 L, MPV 10.5, Neut % (Auto) Not Reportable, Absolute Neuts (auto) 1.7 L, Absolute Lymphs (auto) 0.28 L, Total Counted 100, Neutrophils % (Manual) 59, Band Neutrophils % 16 H, Lymphocytes % (Manual) 12 L, Monocytes % (Manual) 13 H, Metamyelocytes % 4 H, Diff Path Review June, Platelet Estimate SLT DEC, RBC Morphology NORM C+C 10/29/19 06:10: Sodium 137, Potassium 3.7, Chloride 97 L, Carbon Dioxide 35.0 H, Anion Gap 5, BUN 13, Creatinine 0.91, Estim Creat Clear Calc 99.10, Est GFR (MDRD) Af Amer 111, Est GFR (MDRD) Non-Af 92, BUN/Creatinine Ratio 14.2, Glucose 152 H, Calcium 8.3 L, Total Bilirubin 0.60, AST 9 L, ALT 14 L, Alkaline Phosphatase 96, Total Protein 6.7, Albumin 3.0 L, Globulin 3.7, Albumin/Globulin Ratio 0.8 L Current Medications Acetaminophen (Tylenol) 650 mg PO Q6H PRN PRN PRN Reason: Pain Score 1-10/Temp > 100.7 F Albuterol/Ipratropium (Duoneb) 3 ml INHALATION Q4HWA.RT [facility] Last Admin: 10/29/19 07:08 Dose: 3 ml Documented by: Apixaban (Eliquis) 5 mg PO BID [facility] Last Admin: 10/28/19 20:50 Dose: Not Given Documented by: Aspirin (Aspirin, Baby) 162 mg PO DAILY@0800 [facility] Atorvastatin Calcium (Lipitor) 20 mg PO DAILY@2200 [facility] Last Admin: 10/28/19 20:50 Dose: Not Given Documented by: Clonazepam (Klonopin) 0.5 mg PO Q8H PRN PRN PRN Reason: ANXIETY Escitalopram Oxalate (Lexapro) 10 mg PO DAILY [facility] Folic Acid (Folic Acid) 1 mg PO DAILYCM [facility] Gabapentin (Neurontin) 400 mg PO BID [facility] Last Admin: 10/28/19 22:40 Dose: Not Given Documented by: Hydromorphone HCl (Dilaudid Inj) 1 mg IV Q3H PRN PRN PRN Reason: Pain Score 6-10/10 Last Admin: 10/29/19 06:55 Dose: 1 mg Documented by: Sodium Chloride () 1,000 mls @ 125 mls/hr IV .Q8H [facility] Stop: 10/29/19 10:39 Last Infusion: 10/29/19 04:49 Dose: 125 mls/hr Documented by: Levofloxacin (Levaquin Iv) 750 mg in 150 mls @ 100 mls/hr IV Q24 [facility] Last Infusion: 10/28/19 21:34 Dose: Infused Documented by: Lidocaine/Diphenhydr/Alum/Mg/Simeth () 10 ml PO Q3H PRN PRN PRN Reason: pain in throat Last Admin: 10/28/19 21:38 Dose: 10 ml Documented by: Methylprednisolone (Solu-Medrol) 40 mg IV Q8 [facility] Last Admin: 10/29/19 06:23 Dose: 40 mg Documented by: Metoprolol Succinate (Toprol Xl (Beta Levon)) 50 mg PO DAILY [facility] Last Admin: 10/28/19 20:03 Dose: 50 mg Documented by: Nicotine (Nicoderm Cq (kc)) 21 mg TRANSDERM. DAILY [facility] Last Admin: 10/28/19 20:03 Dose: 21 mg Documented by: Nicotine Polacrilex (Rugby Nicotine (Pbkc)) 4 mg PO Q2H PRN PRN PRN Reason: Nicotine Craving Nutritional Formula (Lactose Free) (Ensure Enlive) 120 ml PO 4X/DAY [facility] Last Admin: 10/28/19 20:38 Dose: Not Given Documented by: Nystatin (Nystatin) 500,000 unit PO 4X/DAY [facility] Last Admin: 10/28/19 22:40 Dose: Not Given Documented by: Ondansetron HCl (Zofran) 4 mg IV Q8H PRN PRN PRN Reason: NAUSEA/VOMITING Last Admin: 10/29/19 06:23 Dose: 4 mg Documented by: Sodium Chloride () 10 - 40 ml IV UD PRN PRN Reason: SALINE FLUSH Last Admin: 10/28/19 22:14 Dose: 10 ml Documented by: STROKE Vital Signs/Narrative: Vital Signs Temp Pulse Resp BP Pulse Ox 10/29/19 07:08 95 18 10/29/19 03:55 97.4 F L 76 20 H 121/80 H 97 Medical Necessity - Tobacco Use Smoking Status: Current every day smoker Tobacco Use: Cigarettes Assessment/Plan All Active Problems (Last Updated 04/10/18 @ 11:34 by Raine Huber) New onset atrial fibrillation (Acute) Acute pulmonary embolism (Resolved 04/08/18) Chest pain (Resolved) Intermittent palpitations (Resolved) STEMI (ST elevation myocardial infarction) (Resolved) The patient is a 54 y/o M w/ PMHx: CAD s/p PCI, PAF, Hx PE, HTN, HLD, Tobacco use, EtOH Abuse, Hx recent right subclavian and IJ thrombi with SVC compression, Chronic COPD, Known Lung CA s/p 1st chemotherapy 10/22/19 following w/ [facility] Oncologist Dr. Can w/ Known RUL and R paratracheal masses and adenopathy who presents to the [facility] ED on 10/28/19 with history of fatigue, malaise, nausea, right sided pleuritic chest pain x 4 days. 1. Acute on chronic COPD exacerbation: CXR w/ stable nonacute findings consistent with the patient's underlying cancer, CBC on admission w/ WBC 2.6, hemoglobin 14.4, platelet 122 with lymphopenia of absolute neutrophil 1.9, absolute lymphocytes 0.15, patient admitted to medical surgical floor, maintain on oxygen with wean as tolerated to home oxygen supplementation, continue ATC duonebs, PRN albuterol, IV methylprednisolone will be continued today with possible prednisone transition 10/30/19 given difficulties with oral intake, HOB, IS parameters, IV Levaquin given immunosuppression/neutropenia pending sputum cultures, negative respiratory viral panel, negative COVID testing. Will need oxygenation trial prior to patient discharge once appropriate. 2. Chronic Right-sided pleuritic chest discomfort secondary to underlying cancer, musculoskeletal pain: Patient unable to take his chronic narcotic therapy secondary to intractable nausea initially secondary to recent chemotherapy and underlying cancer, improving but complaining of significant oral intake pain with sore throat, adding Chloraseptic spray, continue BMX although patient has been reticent to take, continue IV overlap and will attempt restarted patient's oral chronic narcotics. Will increase patient home Neurontin regimen. Patient notes recent CTPA approximately 1 week prior given ongoing discomfort which was negative that time. Given patient notes that this is unchanged pain will defer repeating. Continue Eliquis. 3. Debility, malaise secondary to underlying known lung cancer status post recent chemotherapy initiation with neutropenia: Patient admitted with noted neutropenia with absolute neutrophil count 1.9, maintain on hydration, continue to trend CBC, maintain on neutropenic precautions, magnesium at admission 1.3 with supplementation given, will repeat level and phosphorus level and replete if appropriate with encouraged outpatient continue follow-up with patient's oncologist. 4. Severe Sore Throat, Decreased Oral Intake, Possibly secondary to Thrush, ? Radiation esophagitis: Refusing oral intake, initially refusing BMX liquid, encouraging nystatin and BMX although he notes this is made it worse in the past, added Chloraseptic spray which has some improvement, oropharynx with no obvious lesions or obvious thrush at this time, adding back chronic pain regimen with overlapping IV, patient amenable to palliative care consultation which will be initiated at this time. If ongoing severe pain patient may necessitate upper endoscopy. Last radiation therapy approximately 3 weeks prior to current presentation. Maintain on IV Protonix. 5. Pancytopenia secondary to underlying known lung cancer on chemotherapy: Admission CBC with WC 2.6, hemoglobin 14.4, platelet 122 with repeat 10/29/2019 CBC with WBC 2.3, hemoglobin 12.4 following overnight hydration, platelet 109, absolute neutrophil count 1.7, absolute lymphocyte count 0.28, continue precautions, continue trending CBCs. 6. CAD: Status post prior PCI with BMS to the proximal and distal RCA in 2017, continued on aspirin, statin, Plavix, metoprolol regimen, patient is not on KLAUS inhibitor or ARB. 7. Chronic diastolic CHF: We will closely monitor with judicious hydration, continue aspirin, statin, metoprolol, not on any diuretic or KLAUS inhibitor/ARB. 8. Hypertension: Continue home regimen including metoprolol, PRN hydralazine. 9. Hyperlipidemia: Continue home statin regimen. 10. Anxiety and depression, Uncontrolled with Insomnia: We will continue patient home Klonopin, Lexapro regimen however patient with significant evidence of depression, admits, will encourage outpatient follow-up and will add at this time nightly scheduled Ambien as this can be crushed given patient's current difficulty with oral intake. May need to consider transition to alternate regimen or increase. 11. Tobacco Abuse: Encouraged cessation, inpatient consultation per RT, NR if desired. 12. History of alcohol abuse: Patient has been sober, continue to closely monitor, electrolyte supplementation as needed. 13. DVT prophylaxis: Terence Gilliam. Inpatient E&M: 99714 [facility] Hosp L3
[2019-10-29 07:53] LABS: Phosphorus 2.7 mg/dL (2.5-4.9)
[2019-10-29] MEDS: NYSTATIN 500,000 UNIT/5 ML UDC 500000 UNIT PO ×3 (08:55→17:55)
[2019-10-29] MEDS: Aspirin 81 MG TAB.CHEW 162 MG PO (08:56)
[2019-10-29] MEDS: Metoprolol(XL)Succ 50 MG Tablet PO (08:56)
[2019-10-29] MEDS: Escitalopram Oxalate 10 MG Tablet PO (08:57)
[2019-10-29] MEDS: APIXABAN 5 MG TABLET PO ×2 (08:58→21:31)
[2019-10-29] MEDS: morphine SR 15 MG Tablet PO ×2 (09:08→21:31)
[2019-10-29] MEDS: Phenol/Sodium Phenolate 180ML 5 SPRAY MM ×2 (09:08→13:26)
[2019-10-29] MEDS: Acetaminophen 325 MG Tablet 650 MG PO (09:09)
[2019-10-29] MEDS: clonazePAM 0.5 MG Tablet PO (09:09)
[2019-10-29] MEDS: 0.9% Normal Saline 1,000 ML 125 ML IV (09:10)
[2019-10-29] MEDS: levoFLOXacin IV 750 MG/150 ML BAG 100 MG IV (10:17)
[2019-10-29] MEDS: Ketorolac 15 MG/ML Vial IV ×2 (10:18→17:56)
--- NOTE | 2019-10-29 10:28 | PCM.NTREPORT ---
Nutrition Therapy Report - History Nutrition Services has been consulted to:: Manage nutrient details of diet order Current diet / nutrition support order:: Regular - general w/ 120 cc Ensure Enlive 4x/day w/ medpass - Anthropometric Measurements Height:: 6 ft 3 in Weight:: 75.5 kg Body Mass Index (BMI):: 20.7 - Relevant Labs Relevant Labs:: WBC 2.3 K/mm3 (4.4-11.0) L 10/29/19 06:10 RBC 4.30 M/mm3 (4.6-6.2) L 10/29/19 06:10 Hgb 12.4 g/dL (13.0-16.5) L 10/29/19 06:10 Hct 37.5 % (40-54) L 10/29/19 06:10 RDW Std Deviation 45.9 fl (35.1-43.9) H 10/29/19 06:10 Plt Count 109 K/mm3 (150-450) L 10/29/19 06:10 Immature Gran % (Auto) 1.900 % (0.0-0.9) H 10/28/19 16:20 Neut % (Auto) 71.8 % (47-70) H 10/28/19 16:20 Lymph % (Auto) 5.7 % (19-41) L 10/28/19 16:20 [place] % (Auto) 20.2 % (0-10) H 10/28/19 16:20 Absolute Neuts (auto) 1.7 X10^3/uL (2.0-7.7) L 10/29/19 06:10 Absolute Lymphs (auto) 0.28 X10^3/uL (0.83-4.51) L 10/29/19 06:10 Band Neutrophils % 16 % (0-5) H 10/29/19 06:10 Lymphocytes % (Manual) 12 % (19-41) L 10/29/19 06:10 Monocytes % (Manual) 13 % (0-10) H 10/29/19 06:10 Metamyelocytes % 4 % (0-1) H 10/29/19 06:10 Chloride 97 mmol/L (98-107) L 10/29/19 06:10 Carbon Dioxide 35.0 mmol/L (21.0-32.0) H 10/29/19 06:10 Glucose 152 mg/dL (74-106) H 10/29/19 06:10 Calcium 8.3 mg/dL (8.5-10.1) L 10/29/19 06:10 Magnesium 3.0 mg/dL (1.6-2.6) H 10/29/19 06:10 AST 9 U/L (15-37) L 10/29/19 06:10 ALT 14 U/L (16-61) L 10/29/19 06:10 Albumin 3.0 g/dL (3.2-5.0) L 10/29/19 06:10 Albumin/Globulin Ratio 0.8 RATIO (0.9-2.4) L 10/29/19 06:10 - Assessment Food / Nutrition-Related History:: Pt states Regular diet at home and has no appetite x 5 days (ate 1/2 a waffle) - also with nausea and pain in throat - states that he loves food and is sad that he is not able to eat now. Drinks Boost 1-5 bottles per day - but none in past 5 days. Does not like ensure products - willing to try chocolate CIB w/ meals for increased nutrition while in the hospital. UBW: 86.183 kg - wt loss of 12.4 % since June 2019. Pt w/ s/s of malnutrition r/t decreased wt/po intake, fat/muscle loss. [ End ] - Nutrition Diagnosis Problem / Etiology / Signs & Symptoms (PES):: Pt with inadequate oral po intake r/t dx of lung ca, nausea and pain in throat AEB 12.4% wt loss x 4 mo, decreased po intake and fat/muscle loss. Evidence of Malnutrition Exists:: Yes Severe PCM:: Chronic Illness - Nutrition Intervention Nutrition Prescription:: [id number] reshma / 90-100 gm pro /day - Food / Nutrient Delivery Interventions Summary of nutrition intervention:: Rec continue liberal regular diet. [facility] and provide chocolate CIB w/ meals instead. Rec consider appetite stimulant to help encourage increased po intake. [ End ] Nutrition education provided?: No - MNT Monitoring Further MNT monitoring and evaluation required?: Yes MNT Follow-up in:: 3-5 days - please call RD/LD at [phone] if questions
--- NOTE | 2019-10-29 11:10 | CASEMGMT ---
RN CM Face to Face with patient for initial transition planning/care coordination assessment. RN CM introduced self and role at [facility]. Patient lying in bed, alert and oriented. Patient willing to participate in assessment and is able to answer all questions appropriately. Care providers, pharmacy, and demographics verified. Patient wishes to discharge home, denies need for home health at this time. Patient states he has no further needs or concerns at this time. CM to follow for discharge planning needs that may arise. PCP: No PCP Specialists: Pamella oncologist Preferred Pharmacy: [facility] Insurance: [employer] Prescription Benefit: yes Living Will/HPOA: yes, sister Rsoe Gibbs LNOK: sisters Living Arrangements: Patient lives alone in [place] with bed on 2nd floor. Patient states he is independent at home and able to ambulate stairs. Transportation: self, family DME/HHC: Patient states he has a nebulizer machine at home. Patient denies previous HHC or SNF Disposition Plan: Patient to discharge home with family support and follow-up plans in place. Rose DAVIDSON, RN, CM
--- NOTE | 2019-10-29 11:13 | CASEMGMT ---
Addendum entered by Rose Esquivel 10/29/19 13:34: SW updated by DILIP Gregorio with Palliative Care that pt signed Palliative papers and will be following pt at discharge. Original Note: Social Work Note SW received consult for Palliative Care. Physician requesting Palliative meet with pt while pt is at [facility]. SW in to speak with pt. SW spoke with pt regarding Palliative Care. Pt agreeable to referral being made. SW spoke with pt regarding cancer diagnosis. Pt states that he was diagnosed with lung cancer last January. Pt states that he has good support from his family and friends. Mental Health Hx: Pt states that he has anxiety and depression and he currently takes medication. Pt denied any history of suicidal thoughts/plans/ideations. Substance Abuse: Pt states that he currently still smokes half pack of cigarettes a day. Pt denied any alcohol abuse, states that he will occasionally drink ETOH time to time but doesn't identify his drinking as alcohol abuse. SW placed a call to [facility] and spoke with Juliana to provide Palliative Referral. SW requested Palliative to meet with pt while pt is at [facility]. Juliana states an RN will be at [facility] to meet with pt. SW faxed referral to [facility]. Rose Esquivel APPLICATION SECURITY ENGINEER, CULINARY ART TEACHER
[2019-10-29] MEDS: morphine (oral solution) 10MG/0.5ML Syringe 15 MG PO ×3 (13:21→23:07)
[2019-10-29] MEDS: Gabapentin 400 MG Capsule PO ×2 (13:23→17:56)
[2019-10-29 13:44] LABS: Pathologist Review Reviewed
[2019-10-29 13:45] LABS: Pathologist Review Reviewed
[2019-10-29] MEDS: MELATONIN 3 MG TABLET PO (21:31)
[2019-10-29] MEDS: Zolpidem Tartrate 5 MG Tablet PO (21:31)
[2019-10-29] MEDS: Atorvastatin Calcium 20 MG Tablet PO (21:31)
[2019-10-29] MEDS: 0.9% Saline Lock 10 ML Syringe IV (21:32)
--- NOTE | 2019-10-29 23:12 | NURSING ---
This RN is pulling PRN pain medication from accudose d/t student Brissa Quispe not having access to accudose. Student is giving PRN's under her name in [place].
[2019-10-30 01:00] VITALS: PULSE 99
[2019-10-30] MEDS: 0.9% Saline Lock 10 ML Syringe IV ×5 (01:49→11:14)
[2019-10-30] MEDS: HYDROmorphone 1 MG/ML Syringe IV ×3 (01:49→08:26)
[2019-10-30] MEDS: Ketorolac 15 MG/ML Vial IV (03:25)
[2019-10-30] MEDS: morphine (oral solution) 10MG/0.5ML Syringe 15 MG PO ×2 (05:08→09:15)
[2019-10-30 06:44] LABS: Absolute Lymphocyte Count 0.22 X10^3/uL (0.83-4.51); Absolute Neutrophil Count 9.9 X10^3/uL (2.0-7.7); Basophil# 0.01 X10^3/uL; Basophil% 0.1 % (0-1); Differential Indicated SCAN CRITERIA MET; Eosinophil# 0.01 X10^3/uL; Eosinophils% 0.1 % (0-5); Hematocrit 35.2 % (40-54); Hemoglobin 11.5 g/dL (13.0-16.5); Lymphocyte # 0.22 X10^3/ul (4.0); Lymphocyte % 1.9 % (19-41); Mean Corp Hgb Conc 32.7 g/dL (32-36); Mean Corpuscular Hgb 28.9 pg (27.0-32.0); Mean Corpuscular Volume 88.4 fL (80-94); Mean Platelet Vol. 10.5 fl (6.2-12.0); Monocyte# 1.15 X10^3/uL; NRBC Flagged by Analyzer 0 % (0-5); Neutrophil # 9.94 X10^3/uL (2.7-7.7); Neutrophil % 86.5 % (47-70); POSITIVE DIFFERENTIAL YES; POSITIVE MORPHOLOGY YES; Platelet Count 118 K/mm3 (150-450); RBC Distribution Width CV 14.8 % (11.6-14.6); RBC Distribution Width SD 46.6 fl (35.1-43.9); Red Blood Count 3.98 M/mm3 (4.6-6.2); White Blood Count 11.5 K/mm3 (4.4-11.0)
[2019-10-30 06:57] LABS: Toxic Granulation 1+
[2019-10-30 06:58] LABS: Atypical Lymphocyte RARE %; Differential Comment SCANNED; Macrocytosis RARE; Reactive Lymphocyte 1+
[2019-10-30 06:59] LABS: Polychromasia RARE
--- NOTE | 2019-10-30 07:05 | PN_ITS ---
Vitals/I&O's: Vital Signs Temp Pulse Resp BP Pulse Ox 98.2 F 99 18 94/55 L 98 10/29/19 22:45 10/30/19 01:00 10/29/19 22:45 10/29/19 22:45 10/29/19 22:45 Oxygen Flow Rate (L/min) 3 Oxygen Delivery Method Room Air Weight: 166 lb 7.184 oz Body Mass Index (BMI) 20.7 Intake and Output for Last 24 Hours 10/28/19 10/29/19 10/30/19 23:59 23:59 23:59 Intake Total 1152.08 / 1182.08 3435.42 / 3435.42 250 / 250 Output Total 250 / 250 Balance 1152.08 / 1182.08 3185.42 / 3185.42 250 / 250 Microbiology Past 72 Hours 10/28/19 18:50 Sputum, Expectorated/Coughed Gram Stain - Final 10/28/19 18:50 Sputum, Expectorated/Coughed Respiratory Culture - Preliminary Appears to be normal respiratory lucy. Further studies to follow. 10/28/19 16:00 Mucosa - Nasopharyngeal Respiratory Panel (PCR) - Final Laboratory Results 10/28/19 16:20: Diff Path Review Reviewed 10/29/19 06:10: Absolute Neuts (auto) 1.7 L, Absolute Lymphs (auto) 0.28 L, Total Counted 100, Neutrophils % (Manual) 59, Band Neutrophils % 16 H, Lymphocytes % (Manual) 12 L, Monocytes % (Manual) 13 H, Metamyelocytes % 4 H, Diff Path Review Reviewed, Platelet Estimate SLT DEC, RBC Morphology NORM C+C 10/29/19 06:10: Phosphorus 2.7, Magnesium 3.0 H 10/30/19 06:35: WBC 11.5 H, RBC 3.98 L, Hgb 11.5 L, Hct 35.2 L, MCV 88.4, MCH 28.9, MCHC 32.7, RDW Std Deviation 46.6 H, RDW Coeff of Radha 14.8 H, Plt Count 118 L, MPV 10.5, Immature Gran % (Auto) 1.400 H, Neut % (Auto) 86.5 H, Lymph % (Auto) 1.9 L, [place] % (Auto) 10.0, Eos % (Auto) 0.1, Baso % (Auto) 0.1, Absolute Neuts (auto) 9.9 H, Absolute Lymphs (auto) 0.22 L, Nucleated RBC % 0, Differential Comment SCANNED, Atypical Lymphocytes RARE, Reactive Lymphocytes 1+, Toxic Granulation 1+, Polychromasia RARE, Macrocytosis RARE 10/30/19 06:35: Sodium Pending, Potassium Pending, Chloride Pending, Carbon Dioxide Pending, Anion Gap Pending, BUN Pending, Creatinine Pending, Est GFR (MDRD) Af Amer Pending, Est GFR (MDRD) Non-Af Pending, BUN/Creatinine Ratio Pending, Glucose Pending, Calcium Pending, Total Bilirubin Pending, AST Pending, ALT Pending, Alkaline Phosphatase Pending, Total Protein Pending, Albumin Pending Current Medications Acetaminophen (Tylenol) 650 mg PO Q6H PRN PRN PRN Reason: Pain Score 1-10/Temp > 100.7 F Last Admin: 10/29/19 09:09 Dose: 650 mg Documented by: Albuterol/Ipratropium (Duoneb) 3 ml INHALATION Q4HWA.RT [facility] Last Admin: 10/29/19 19:18 Dose: 3 ml Documented by: Apixaban (Eliquis) 5 mg PO BID [facility] Last Admin: 10/29/19 21:31 Dose: 5 mg Documented by: Aspirin (Aspirin, Baby) 162 mg PO DAILY@0800 [facility] Last Admin: 10/29/19 08:56 Dose: 162 mg Documented by: Atorvastatin Calcium (Lipitor) 20 mg PO DAILY@2200 [facility] Last Admin: 10/29/19 21:31 Dose: 20 mg Documented by: Clonazepam (Klonopin) 0.5 mg PO Q8H PRN PRN PRN Reason: ANXIETY Last Admin: 10/29/19 09:09 Dose: 0.5 mg Documented by: Escitalopram Oxalate (Lexapro) 10 mg PO DAILY [facility] Last Admin: 10/29/19 08:57 Dose: 10 mg Documented by: Fentanyl (Duragesic Patch) 12 mcg TRANSDERM. Q3D [facility] Last Admin: 10/29/19 13:48 Dose: 12 mcg Documented by: Folic Acid (Folic Acid) 1 mg PO DAILYCM [facility] Last Admin: 10/29/19 08:51 Dose: Not Given Documented by: Gabapentin (Neurontin) 400 mg PO TIDCM [facility] Last Admin: 10/29/19 17:56 Dose: 400 mg Documented by: Hydromorphone HCl (Dilaudid Inj) 1 mg IV Q3H PRN PRN PRN Reason: Pain Score 6-10/10 Last Admin: 10/30/19 05:59 Dose: 1 mg Documented by: Levofloxacin (Levaquin Iv) 750 mg in 150 mls @ 100 mls/hr IV Q24 [facility] Last Infusion: 10/29/19 13:51 Dose: Infused Documented by: Pantoprazole Sodium 40 mg/ (Sodium Chloride) 110 mls @ 330 mls/hr IV Q12 [facility] Last Infusion: 10/29/19 22:00 Dose: Infused Documented by: Lidocaine/Diphenhydr/Alum/Mg/Simeth () 10 ml PO Q3H PRN PRN PRN Reason: pain in throat Last Admin: 10/28/19 21:38 Dose: 10 ml Documented by: Melatonin (Melatonin) 3 mg PO QHS [facility] Last Admin: 10/29/19 21:31 Dose: 3 mg Documented by: Methylprednisolone (Solu-Medrol) 40 mg IV Q8 [facility] Last Admin: 10/30/19 05:08 Dose: 40 mg Documented by: Metoprolol Succinate (Toprol Xl (Beta Levon)) 50 mg PO DAILY [facility] Last Admin: 10/29/19 08:56 Dose: 50 mg Documented by: Morphine Sulfate (Ms Contin) 15 mg PO BID [facility] Last Admin: 10/29/19 21:31 Dose: 15 mg Documented by: Morphine Sulfate (Roxanol (Ir Oral Solution)) 15 mg PO Q4H PRN PRN PRN Reason: Pain Score 1-10/10 Last Admin: 10/30/19 05:08 Dose: 15 mg Documented by: Naloxone HCl (Narcan) 0.4 mg IV X1 PRN PRN Reason: somnolence, unresponsive Nicotine (Nicoderm Cq (Pbkc)) 21 mg TRANSDERM. DAILY [facility] Last Admin: 10/29/19 08:55 Dose: 21 mg Documented by: Nicotine Polacrilex ([place] Nicotine (Pbkc)) 4 mg PO Q2H PRN PRN PRN Reason: Nicotine Craving Nystatin (Nystatin) 500,000 unit PO 4X/DAY [facility] Last Admin: 10/29/19 22:10 Dose: Not Given Documented by: Ondansetron HCl (Zofran) 4 mg IV Q8H PRN PRN PRN Reason: NAUSEA/VOMITING Last Admin: 10/29/19 06:23 Dose: 4 mg Documented by: Phenol/Menthol (Chloraseptic (Bkc)) 5 spray MM Q2H PRN PRN PRN Reason: SORE THROAT Last Admin: 10/29/19 13:26 Dose: 5 sprays Documented by: Sodium Chloride () 10 - 40 ml IV UD PRN PRN Reason: SALINE FLUSH Last Admin: 10/30/19 05:59 Dose: 20 ml Documented by: Zolpidem Tartrate (Ambien (Generic)) 5 mg PO QHS [facility] Last Admin: 10/29/19 21:31 Dose: 5 mg Documented by: Medical Necessity - Tobacco Use Smoking Status: Current every day smoker Tobacco Use: Cigarettes Assessment/Plan All Active Problems (Last Updated 04/10/18 @ 11:34 by Raine Huber) New onset atrial fibrillation (Acute) Acute pulmonary embolism (Resolved 04/08/18) Chest pain (Resolved) Intermittent palpitations (Resolved) STEMI (ST elevation myocardial infarction) (Resolved)
[2019-10-30 07:06] LABS: ALB/GLOB Ratio 0.8 RATIO (0.9-2.4); AST(SGOT) 11 U/L (15-37); Alanine Aminotransfer ALT/SGPT 12 U/L (16-61); Albumin, Serum 2.9 g/dL (3.2-5.0); Alkaline Phosphatase 86 U/L (45-117); Anion Gap 6 (5-15); BUN 23 mg/dL (7-18); BUN/Creat Ratio 20.2 RATIO (10-20); Calcium,Total 8.2 mg/dL (8.5-10.1); Chloride 98 mmol/L (98-107); Creatinine, Serum 1.14 mg/dL (0.70-1.30); EST Glomerular Filtration Rate 71 mL/min (>60); Est Glom Filt Rate - Afr Amer 86 mL/min (>60); Estimated Creatinine Clearance 79.11 ml/min; Globulin 3.5 g/dL (2.2-4.2); Glucose 123 mg/dL (74-106); Potassium 3.7 mmol/L (3.5-5.1); Protein, Total 6.4 g/dL (6.4-8.2); Sodium Level 136 mmol/L (136-145)
[2019-10-30] MEDS: clonazePAM 0.5 MG Tablet PO (07:58)
[2019-10-30] MEDS: 0.9% Normal Saline 1,000 ML 999 ML IV (07:59)
[2019-10-30] MEDS: fentaNYL 25 MCG Patch TRANSDERM. (08:00)
[2019-10-30] MEDS: Escitalopram Oxalate 10 MG Tablet PO (08:31)
[2019-10-30] MEDS: Folic Acid 1 MG Tablet PO (08:32)
[2019-10-30] MEDS: Gabapentin 400 MG Capsule PO (08:32)
[2019-10-30] MEDS: Aspirin 81 MG TAB.CHEW 162 MG PO (08:32)
[2019-10-30] MEDS: APIXABAN 5 MG TABLET PO (08:32)
--- NOTE | 2019-10-30 09:01 | CASEMGMT ---
RN CM Note: Intro role of CM to patient who is being discharged to home today. No concerns or needs identified. Pt will be discharged on Eliquis, and savings card given to him and explained. Nuris ARMSTRONGN RN ACM
[2019-10-30 09:17] VITALS: BP 114/84; PULSE 94; RESP 18; TEMP 37.2; O2SAT 98
[2019-10-30] MEDS: levoFLOXacin IV 750 MG/150 ML BAG 100 MG IV (09:20)
[2019-10-30 09:21] VITALS: PULSE 94
[2019-10-30] MEDS: Metoprolol(XL)Succ 50 MG Tablet PO (09:21)
--- NOTE | 2019-10-30 09:40 | PCM.DC ---
- Discharge Diagnoses Current Active Problems: 1. Acute on chronic COPD exacerbation 2. Chronic Right-sided pleuritic chest discomfort secondary to underlying cancer, musculoskeletal pain 3. Debility, malaise secondary to underlying known lung cancer status post recent chemotherapy initiation with neutropenia 4. Severe Sore Throat, Decreased Oral Intake, Possibly secondary to Thrush, ? Radiation esophagitis 5. Pancytopenia secondary to underlying known lung cancer on chemotherapy 6. CAD, Status post prior PCI with BMS to the proximal and distal RCA in 2017 w/ Hx NSTEMI 7. Chronic diastolic CHF 8. Hypertension 9. Hyperlipidemia 10. Anxiety and depression, Uncontrolled with Insomnia 11. Tobacco Abuse 12. History of alcohol abuse 13. Paroxysmal atrial fibrillation You will use the following diet at home:: Other - Recommend mechanical soft diet with regular small meals to assure appropriate intake as well as ongoing appropriate water intake until throat soreness resolves then may liberalize to normal texture if able. Your food should be the consistency of: Mechanical soft (ground) Your liquids should be the consistency of: Regular/Thin Discharge Activity: May not drive while taking narcotic pain medications., - - Encourage routine mild to moderate activity. May resume sexual activity in: No Restrictions Weight Bearing Status: Weight bearing as tolerated Call your doctor if you observe: Fever of 101 or Higher, Inability to urinate, Inability to have a bowel movement, Shortness of breath, Dizziness, Fainting spells, Chest pain, Uncontrolled pain Instructions: What Is COPD?, Chronic Lung Disease: Preventing Lung Infections, COPD: Using Inhalers, Esophagitis, Managing Chronic Pain: Therapies for Mind and Body, Managing Chronic Pain: Medications, Managing Chronic Pain: Activity Additional Instructions: COPD exacerbation: Please complete the steroid oral taper. You were given three doses of antibiotic therapy during admission. Please use the inhalers ordered. Sore Throat, possible esophageal irritation with radiation, possible esophageal fungal infection: Please continue the oral nystatin as well as BMX if able, protonix and chronic pain regimen. Please continue outpatient evaluation with Palliative care to further assist. Chronic Pain: Your pain regimen was altered with increase of morphine extended twice daily to 30 mg each dose and your neurotin was increased to 3 times daily. Please continue outpatient evaluation with Palliative care to further assist. Allergies/Adverse Reactions: Allergies No Known Allergies Allergy (Verified 10/28/19 15:01) Medications to take at Discharge Aspirin [Aspirin, Baby] 162 mg PO DAILY@0800 10/03/17 atorvastatin 80 mg tablet 20 mg PO DAILY #90 tab 01/18/19 Clonazepam [Klonopin] 0.5 mg PO Q8H PRN PRN 09/08/19 Escitalopram Oxalate [Lexapro] 10 mg PO DAILY 09/08/19 Folic Acid 1 mg PO DAILY 09/08/19 Morphine [Morphine IR] 15 mg PO Q4H PRN PRN 09/08/19 Metoprolol Tartrate [Lopressor (beta luis)] 50 mg PO DAILY 10/28/19 Albuterol IH (ProAir) [Proair Hfa] 1 - 2 puff INHALATION Q4H PRN PRN #1 inhaler 10/30/19 Apixaban [Eliquis] 5 mg PO BID #0 10/30/19 Bmx Liquid 10 ml PO Q3H PRN PRN 30 Days #1 bottle 10/30/19 Fluticasone/Salmeterol [Advair 250-50 Diskus] 1 ea IH BID #1 blst.w.dev 10/30/19 Gabapentin [Neurontin] 400 mg PO TIDCM #90 cap 10/30/19 Nystatin 500,000 unit PO 4X/DAY 7 Days #1 bottle 10/30/19 Pantoprazole Sodium [Protonix] 40 mg PO BID #60 tab 10/30/19 Phenol/Sodium Phenolate [Chloraseptic (BKC)] 5 spray MM Q2H PRN PRN #1 bottle 10/30/19 Prednisone 10 mg PO UD 12 Days #30 tab 10/30/19 morphine SR tablet [Ms Contin] 30 mg PO BID 5 Days #10 tab 10/30/19 The following prescriptions were given: Fluticasone/Salmeterol [Advair 250-50 Diskus] 1 ea IH BID #1 blst.w.dev Transmission Status: Sent to [facility] Bmx Liquid 10 ml PO Q3H PRN PRN 30 Days #1 bottle PRN Reason: pain in throat Transmission Status: Sent to [facility] Phenol/Sodium Phenolate [Chloraseptic (BKC)] 5 spray MM Q2H PRN PRN #1 bottle PRN Reason: Sore Throat Transmission Status: Sent to [facility] morphine SR tablet [Ms Contin] 30 mg PO BID 5 Days #10 tab Prescription Printed Gabapentin [Neurontin] 400 mg PO TIDCM #90 cap Transmission Status: Sent to [facility] Nystatin 500,000 unit PO 4X/DAY 7 Days #1 bottle Transmission Status: Sent to [facility] Prednisone 10 mg PO UD 12 Days #30 tab Prescription Printed Albuterol IH (ProAir) [Proair Hfa] 1 - 2 puff INHALATION Q4H PRN PRN #1 inhaler PRN Reason: dyspnea, wheezing Transmission Status: Sent to [facility] Pantoprazole Sodium [Protonix] 40 mg PO BID #60 tab Transmission Status: Sent to [facility] Primary Care Physician: Care Physician,No Primary [Primary Care Provider] - Please follow up with your Primary Care Physician in: Please establish, list offered within 3-5 days to review admission. Test Results: Test results from this visit will be discussed in further detail at your follow-up appointment, if applicable. Please Follow Up With: [facility] Oncology When: Please follow-up and review admission as previously arranged. Proposed Discharge Date: 10/30/19
--- NOTE | 2019-10-30 09:50 | PCM.DC.SUM ---
Discharge Date and Diagnosis Date of Admission: 10/28/19 Date of Discharge: 10/30/19 - Primary Discharge Diagnosis Acute Problems: 1. Acute on chronic COPD exacerbation 2. Chronic Right-sided pleuritic chest discomfort secondary to underlying cancer, musculoskeletal pain 3. Debility, malaise secondary to underlying known lung cancer status post recent chemotherapy initiation with neutropenia 4. Severe Sore Throat, Decreased Oral Intake, Possibly secondary to Thrush, ? Radiation esophagitis 5. Pancytopenia secondary to underlying known lung cancer on chemotherapy 6. CAD, Status post prior PCI with BMS to the proximal and distal RCA in 2017 w/ Hx NSTEMI 7. Chronic diastolic CHF 8. Hypertension 9. Hyperlipidemia 10. Anxiety and depression, Uncontrolled with Insomnia 11. Tobacco Abuse 12. History of alcohol abuse 13. Paroxysmal atrial fibrillation - Secondary Discharge Diagnosis Chronic Problems: Chronic Problems (Last Updated 04/10/18 @ 11:33 by Raine Huber) Essential (primary) hypertension (Chronic) Nicotine dependence (Chronic) HLD (hyperlipidemia) (Chronic) Alcohol abuse (Chronic) NSTEMI (non-ST elevated myocardial infarction) (Chronic 04/07/18) Atherosclerosis of coronary artery of [place] heart with angina pectoris (Chronic) BMS-Prox and Distal RCA 12/23/16 History of coronary artery stent placement (Chronic 12/23/16) BMS-Prox and Distal RCA 12/23/16 Hospital Course and Treatment Palliative care consultation Operations: None Procedures: EKG Summary of Care Provided: The patient is a 54 y/o M w/ PMHx: CAD s/p PCI, PAF, Hx PE, HTN, HLD, Tobacco use, EtOH Abuse, Hx recent right subclavian and IJ thrombi with SVC compression, Chronic COPD, Known Lung CA s/p 1st chemotherapy 10/22/19 following w/ [facility] Oncologist Dr. Can w/ Known RUL and R paratracheal masses and adenopathy who presents to the [facility] ED on 10/28/19 with history of fatigue, malaise, nausea, right sided pleuritic chest pain x 4 days with sore throat with more recent radiation therapy he noted ~ 3 weeks prior and most recent chemotherapy ~ 1 week prior with onset symptoms within 1 day of completion of chemotherapy. ED evaluation with CXR w/ stable nonacute findings consistent with the patient's underlying cancer, CBC on admission w/ WBC 2.6, hemoglobin 14.4, platelet 122 with lymphopenia of absolute neutrophil 1.9, absolute lymphocytes 0.15. The patient was admitted to medical surgical floor, maintained on oxygen with wean as tolerated to home oxygen supplementation, continued ATC duonebs, PRN albuterol, IV methylprednisolone with prednisone transition 10/30/19 given difficulties with oral intake initially, HOB, IS parameters, IV Levaquin given immunosuppression/neutropenia w/ eventual unremarkable sputum cultures w/ completion 3 day course, negative respiratory viral panel, negative COVID testing. Patient primary complaint is chronic unchanged chest pain but difficulties with sore throat made oral pain regimen intake difficult he noted upon presentation secondary to intractable nausea initially secondary to recent chemotherapy and underlying cancer, improved but complained of significant oral intake pain with sore throat throughout. Added Chloraseptic spray, BMX although patient has been reticent to take, nystatin S/S although no marked oral findings and patient intermittently complaint, continue IV overlap with restart increased chronic oral regimen long acting morphine and short acting, increase neurontin, short curse IV toradol and at one point overlap with lower dose fentanyl. Patient noted recent CTPA approximately ~1 week prior given ongoing discomfort which was negative that time and was continued on eliquis. During admission patient with pancytopenia secondary to underlying known lung cancer on chemotherapy: Admission CBC with WC 2.6, hemoglobin 14.4, platelet 122 with repeat 10/29/2019 CBC with WBC 2.3, hemoglobin 12.4 following overnight hydration, platelet 109, absolute neutrophil count 1.7, absolute lymphocyte count 0.28, continue precautions with improvement 10/30/19 with CBC w/ WBC 11.5, Hgb 11.5, Plts 118 with resolution neutropenia although on steroids as noted. Patient during admission very agitated, aggressive with staff, noted constant pain, complained of inability to sleep but was setting his timer to his IV pain regimen availability. Palliative care was consulted and evaluated patient in house. Requested at discharge close early follow-up. Patient declined assist with PCP set-up. Patient despite ongoing pain insisted he be discharged by specifically noon on 10/30/19. He noted intention to follow-up with [facility] Oncology for his next chemotherapy. He declined any RT for ongoing tobacco use at discharge. DAY OF DISCHARGE PROGRESS NOTE: Subjective: Patient without acute event overnight per self and nursing report except complaints of ongoing pain despite aggressive alterations to his regimen and several modalities. Despite this he noted no marked dyspnea, lessened cough, no wheezing, lessened sore throat with intake improvement. Patient of note with no somnolence at any point with the alterations to his home pain regimen. Palliative care was made aware of his specific regimen. Patient denies fever, chills, nausea, emesis, abdominal pain or dyspnea. Patient adamant about discharge to home by noon. Patient will be discharged with follow-up with primary care physician encouraged but declined assist with setting up visit and with also his oncologist. Objective: 98.9, heart rate 94, BP 114/84, respiratory rate 18, 98% on room air. Physical Examination: General: awake, alert, oriented x 3 and cooperative, seated upright in the MS bed, remains irritable with staff, notes ongoing severe pain but does not appear uncomfortable currently, improved movement and respiratory effort. Skin: normal color, turgor, no icterus, cyanosis. HEENT: AT/NC, EOMI, PERRLA, improved MMM. Lungs: Improved air movement, diminished > BL bases, improved effort, no rales, ronchi, resolved wheezing. Heart: Regular rate and rhythm; no gallop, rub audible. Abdomen: soft, thin habitus, NTTP, ND, normal BS. Extremities: no cyanosis, clubbing, or edema. Neurological: patient awake, alert, oriented x 3; cognitive function appears intact; pupils equally reactive to light and accomodation; cranial nerves II-XII grossly normal, moving all 4 extremities, no focal deficits, strength moderately globally decreased. Psychiatric: affect appears irritable today, noted constant dissatisfaction with any changes, no obvious acute evidence of anxiety feelings. Assessment and Plan: Please see hospital summary above. - Physical Exam Vitals/I&O's: Vital Signs Temp Pulse Resp BP Pulse Ox 98.9 F 94 18 114/84 H 98 10/30/19 09:17 10/30/19 09:21 10/30/19 09:17 10/30/19 09:17 10/30/19 09:17 Oxygen Flow Rate (L/min) 3 Oxygen Delivery Method Room Air Weight: 166 lb 7.184 oz Body Mass Index (BMI) 20.7 Intake and Output for Last 24 Hours 10/28/19 10/29/19 10/30/19 23:59 23:59 23:59 Intake Total 1152.08 / 1182.08 3435.42 / 3435.42 1250 / 1250 Output Total 250 / 250 Balance 1152.08 / 1182.08 3185.42 / 3185.42 1250 / 1250 Microbiology Past 72 Hours 10/28/19 18:50 Sputum, Expectorated/Coughed Gram Stain - Final 10/28/19 18:50 Sputum, Expectorated/Coughed Respiratory Culture - Preliminary Appears to be normal respiratory lucy. Further studies to follow. 10/28/19 16:00 Mucosa - Nasopharyngeal Respiratory Panel (PCR) - Final Laboratory Results 10/28/19 16:20: Diff Path Review Reviewed 10/29/19 06:10: Diff Path Review Reviewed 10/30/19 06:35: WBC 11.5 H, RBC 3.98 L, Hgb 11.5 L, Hct 35.2 L, MCV 88.4, MCH 28.9, MCHC 32.7, RDW Std Deviation 46.6 H, RDW Coeff of Radha 14.8 H, Plt Count 118 L, MPV 10.5, Immature Gran % (Auto) 1.400 H, Neut % (Auto) 86.5 H, Lymph % (Auto) 1.9 L, Lawrence % (Auto) 10.0, Eos % (Auto) 0.1, Baso % (Auto) 0.1, Absolute Neuts (auto) 9.9 H, Absolute Lymphs (auto) 0.22 L, Nucleated RBC % 0, Differential Comment SCANNED, Atypical Lymphocytes RARE, Reactive Lymphocytes 1+, Toxic Granulation 1+, Polychromasia RARE, Macrocytosis RARE 10/30/19 06:35: Sodium 136, Potassium 3.7, Chloride 98, Carbon Dioxide 32.0, Anion Gap 6, BUN 23 H, Creatinine 1.14, Estim Creat Clear Calc 79.11, Est GFR (MDRD) Af Amer 86, Est GFR (MDRD) Non-Af 71, BUN/Creatinine Ratio 20.2 H, Glucose 123 H, Calcium 8.2 L, Total Bilirubin 0.30, AST 11 L, ALT 12 L, Alkaline Phosphatase 86, Total Protein 6.4, Albumin 2.9 L, Globulin 3.5, Albumin/Globulin Ratio 0.8 L Current Medications Acetaminophen (Tylenol) 650 mg PO Q6H PRN PRN PRN Reason: Pain Score 1-10/Temp > 100.7 F Last Admin: 10/29/19 09:09 Dose: 650 mg Documented by: Albuterol/Ipratropium (Duoneb) 3 ml INHALATION Q4HWA.RT [facility] Last Admin: 10/30/19 07:00 Dose: Not Given Documented by: Apixaban (Eliquis) 5 mg PO BID [facility] Last Admin: 10/30/19 08:32 Dose: 5 mg Documented by: Aspirin (Aspirin, Baby) 162 mg PO DAILY@0800 [facility] Last Admin: 10/30/19 08:32 Dose: 162 mg Documented by: Atorvastatin Calcium (Lipitor) 20 mg PO DAILY@2200 [facility] Last Admin: 10/29/19 21:31 Dose: 20 mg Documented by: Clonazepam (Klonopin) 0.5 mg PO Q8H PRN PRN PRN Reason: ANXIETY Last Admin: 10/30/19 07:58 Dose: 0.5 mg Documented by: Escitalopram Oxalate (Lexapro) 10 mg PO DAILY [facility] Last Admin: 10/30/19 08:31 Dose: 10 mg Documented by: Fentanyl (Duragesic Patch) 25 mcg TRANSDERM. Q3D [facility] Last Admin: 10/30/19 08:00 Dose: 25 mcg Documented by: Folic Acid (Folic Acid) 1 mg PO DAILYCM [facility] Last Admin: 10/30/19 08:32 Dose: 1 mg Documented by: Gabapentin (Neurontin) 400 mg PO TIDCM [facility] Last Admin: 10/30/19 08:32 Dose: 400 mg Documented by: Hydromorphone HCl (Dilaudid Inj) 1 mg IV Q3H PRN PRN PRN Reason: Pain Score 6-10/10 Last Admin: 10/30/19 05:59 Dose: 1 mg Documented by: Pantoprazole Sodium 40 mg/ (Sodium Chloride) 110 mls @ 330 mls/hr IV Q12 [facility] Last Admin: 10/30/19 09:40 Dose: Not Given Documented by: Levofloxacin (Levaquin Tablet) 750 mg PO X1 ONE Stop: 10/30/19 11:31 Lidocaine/Diphenhydr/Alum/Mg/Simeth () 10 ml PO Q3H PRN PRN PRN Reason: pain in throat Last Admin: 10/28/19 21:38 Dose: 10 ml Documented by: Melatonin (Melatonin) 3 mg PO QHS [facility] Last Admin: 10/29/19 21:31 Dose: 3 mg Documented by: Metoprolol Succinate (Toprol Xl (Beta Levon)) 50 mg PO DAILY [facility] Last Admin: 10/30/19 09:21 Dose: 50 mg Documented by: Morphine Sulfate (Roxanol (Ir Oral Solution)) 15 mg PO Q4H PRN PRN PRN Reason: Pain Score 1-10/10 Last Admin: 10/30/19 09:15 Dose: 15 mg Documented by: Morphine Sulfate (Ms Contin) 30 mg PO BID [facility] Last Admin: 10/30/19 08:32 Dose: 30 mg Documented by: Naloxone HCl (Narcan) 0.4 mg IV X1 PRN PRN Reason: somnolence, unresponsive Nicotine (Nicoderm Cq (Pbkc)) 21 mg TRANSDERM. DAILY [facility] Last Admin: 10/30/19 09:21 Dose: 21 mg Documented by: Nicotine Polacrilex (Rugby Nicotine (Pbkc)) 4 mg PO Q2H PRN PRN PRN Reason: Nicotine Craving Nystatin (Nystatin) 500,000 unit PO 4X/DAY [facility] Last Admin: 10/30/19 08:34 Dose: Not Given Documented by: Ondansetron HCl (Zofran) 4 mg IV Q8H PRN PRN PRN Reason: NAUSEA/VOMITING Last Admin: 10/29/19 06:23 Dose: 4 mg Documented by: Phenol/Menthol (Chloraseptic (Bkc)) 5 spray MM Q2H PRN PRN PRN Reason: SORE THROAT Last Admin: 10/29/19 13:26 Dose: 5 sprays Documented by: Sodium Chloride () 10 - 40 ml IV UD PRN PRN Reason: SALINE FLUSH Last Admin: 10/30/19 08:26 Dose: 10 ml Documented by: Zolpidem Tartrate (Ambien (Generic)) 5 mg PO QHS [facility] Last Admin: 10/29/19 21:31 Dose: 5 mg Documented by: Discharge Activity: May not drive while taking narcotic pain medications., - - Encourage routine mild to moderate activity. May resume sexual activity in: No Restrictions Weight Bearing Status: Weight bearing as tolerated Call your doctor if you observe: Fever of 101 or Higher, Inability to urinate, Inability to have a bowel movement, Shortness of breath, Dizziness, Fainting spells, Chest pain, Uncontrolled pain Home Medications: Medications to take at Discharge Aspirin [Aspirin, Baby] 162 mg PO DAILY@0800 10/03/17 atorvastatin 80 mg tablet 20 mg PO DAILY #90 tab 01/18/19 Clonazepam [Klonopin] 0.5 mg PO Q8H PRN PRN 09/08/19 Escitalopram Oxalate [Lexapro] 10 mg PO DAILY 09/08/19 Folic Acid 1 mg PO DAILY 09/08/19 Morphine [Morphine IR] 15 mg PO Q4H PRN PRN 09/08/19 Metoprolol Tartrate [Lopressor (beta levon)] 50 mg PO DAILY 10/28/19 Albuterol IH (ProAir) [Proair Hfa] 1 - 2 puff INHALATION Q4H PRN PRN #1 inhaler 10/30/19 Apixaban [Eliquis] 5 mg PO BID #0 10/30/19 Bmx Liquid 10 ml PO Q3H PRN PRN 30 Days #1 bottle 10/30/19 Fluticasone/Salmeterol [Advair 250-50 Diskus] 1 ea IH BID #1 blst.w.dev 10/30/19 Gabapentin [Neurontin] 400 mg PO TIDCM #90 cap 10/30/19 Nystatin 500,000 unit PO 4X/DAY 7 Days #1 bottle 10/30/19 Pantoprazole Sodium [Protonix] 40 mg PO BID #60 tab 10/30/19 Phenol/Sodium Phenolate [Chloraseptic (BKC)] 5 spray MM Q2H PRN PRN #1 bottle 10/30/19 Prednisone 10 mg PO UD 12 Days #30 tab 10/30/19 morphine SR tablet [Ms Contin] 30 mg PO BID 5 Days #10 tab 10/30/19 Following Prescriptions Were Given to Patient: Fluticasone/Salmeterol [Advair 250-50 Diskus] 1 ea IH BID #1 blst.w.dev Transmission Status: Received by [facility] Bmx Liquid 10 ml PO Q3H PRN PRN 30 Days #1 bottle PRN Reason: pain in throat Transmission Status: Received by [facility] Phenol/Sodium Phenolate [Chloraseptic (BKC)] 5 spray MM Q2H PRN PRN #1 bottle PRN Reason: Sore Throat Transmission Status: Received by [facility] morphine SR tablet [Ms Contin] 30 mg PO BID 5 Days #10 tab Prescription Printed Gabapentin [Neurontin] 400 mg PO TIDCM #90 cap Transmission Status: Received by [facility] Nystatin 500,000 unit PO 4X/DAY 7 Days #1 bottle Transmission Status: Received by [facility] Prednisone 10 mg PO UD 12 Days #30 tab Prescription Printed Albuterol IH (ProAir) [Proair Hfa] 1 - 2 puff INHALATION Q4H PRN PRN #1 inhaler PRN Reason: dyspnea, wheezing Transmission Status: Received by [facility] Pantoprazole Sodium [Protonix] 40 mg PO BID #60 tab Transmission Status: Received by [facility] Primary Care Physician: Care Physician,No Primary [Primary Care Provider] - Please follow up with your Primary Care Physician in: Please establish, list offered within 3-5 days to review admission. Please Follow Up With: [facility] On[facility] When: Please follow-up and review admission as previously arranged. Patient Instructions: Esophagitis, What Is COPD?, Chronic Lung Disease: Preventing Lung Infections, Managing Chronic Pain: Activity, Managing Chronic Pain: Medications, Managing Chronic Pain: Therapies for Mind and Body, COPD: Using Inhalers Disposition: Home Minutes spent on discharge:: 35 Patient Condition:: Stable Medical Necessity - Tobacco Use Smoking Status: Current every day smoker Tobacco Use: Cigarettes Meaningful Use Info Meaningful Use Diagnoses (Choose all that apply): None applicable Inpatient E&M: 82548 Disch Hosp
--- NOTE | 2019-10-30 10:17 | CASEMGMT ---
Social Work Note Pt is discharging home today with Palliative Care services. SW in to speak with pt. SW informed pt that this worker will let Palliative know he is discharging home today. SW spoke with pt regarding cigarette use and ETOH use. Pt denied wanting any tobacco cessation or substance abuse resources. Pt denied additional needs or concerns at this time. SW placed a call to [facility] and left message that pt will be discharged today. SW updated Palliative that physician is requesting Palliative involvement as soon as possible. SERAFIN faxed discharge paperwork to Palliative. Plan: Home with Palliative Care Rose Esquivel CONSUMER CREDIT COUNSELOR, SLOT OPERATIONS DIRECTOR
--- NOTE | 2019-10-30 10:48 | CASEMGMT ---
RN CM Note- PCP list for long area given to patient. He states he goes between here and [place] so I'm not going to bother. Pt is declining any further assistance with this. Also states he wants to leave after lunch. Nuris DAVIDSON RN ACM
--- NOTE | 2019-10-30 11:29 | PHA.DC.MR ---
Pharmacy Service has performed discharge medication reconciliation for this patient. The patient's discharge medication list was reviewed for discrepancies and discrepancies were resolved. Home Medications Aspirin [Aspirin, Baby] 162 mg PO DAILY@0800 10/03/17 atorvastatin 80 mg tablet 20 mg PO DAILY #90 tab 01/18/19 Clonazepam [Klonopin] 0.5 mg PO Q8H PRN PRN 09/08/19 Escitalopram Oxalate [Lexapro] 10 mg PO DAILY 09/08/19 Folic Acid 1 mg PO DAILY 09/08/19 Morphine [Morphine IR] 15 mg PO Q4H PRN PRN 09/08/19 Metoprolol Tartrate [Lopressor (beta luis)] 50 mg PO DAILY 10/28/19 Albuterol IH (ProAir) [Proair Hfa] 1 - 2 puff INHALATION Q4H PRN PRN #1 inhaler 10/30/19 Apixaban [Eliquis] 5 mg PO BID #0 10/30/19 Bmx Liquid 10 ml PO Q3H PRN PRN 30 Days #1 bottle 10/30/19 Fluticasone/Salmeterol [Advair 250-50 Diskus] 1 ea IH BID #1 blst.w.dev 10/30/19 Gabapentin [Neurontin] 400 mg PO TIDCM #90 cap 10/30/19 Nystatin 500,000 unit PO 4X/DAY 7 Days #1 bottle 10/30/19 Pantoprazole Sodium [Protonix] 40 mg PO BID #60 tab 10/30/19 Phenol/Sodium Phenolate [Chloraseptic (BKC)] 5 spray MM Q2H PRN PRN #1 bottle 10/30/19 Prednisone 10 mg PO UD 12 Days #30 tab 10/30/19 morphine SR tablet [Ms Contin] 30 mg PO BID 5 Days #10 tab 10/30/19
--- NOTE | 2019-10-31 15:18 | CASEMGMT ---
DILIP FOWLER Discharge Follow-up Phone Call: THELMA: Jenifer Strata: 3 Call Date: 10/31/19 Discharge Date: 10/30/19 Time of Call: 1515 Duration: 3 min Admitting Diagnosis: Debility, COPD exacerbation DILIP FOWLER completed follow-up phone call after recent hospitalization. Patient states he is doing better. Patient did not have any questions regarding discharge instructions. Patient states he was able to fill prescriptions without any issues. Patient has follow-up appt schedule with his oncologist. Patient had no further questions of concerns.
== END 2019-10-30 11:43 | disposition home or self-care (01) | DRG 190 ==
LOC: ED 15:47 → MS3 17:52
PROVIDERS: Admitting Provider Internal Medicine; Emergency Provider Emergency Medicine; Visit Provider Family Medicine
DX: J44.1 Chronic obstructive pulmonary disease with (acute) exacerbation (principal); D61.810 Antineoplastic chemotherapy induced pancytopenia; C34.90 Malignant neoplasm of unspecified part of unspecified bronchus or lung; I50.32 Chronic diastolic (congestive) heart failure; D61.818 Other pancytopenia; I11.0 Hypertensive heart disease with heart failure; E78.5 Hyperlipidemia, unspecified; F41.9 Anxiety disorder, unspecified; F32.9 Major depressive disorder, single episode, unspecified; G47.00 Insomnia, unspecified; F10.10 Alcohol abuse, uncomplicated; I48.0 Paroxysmal atrial fibrillation; I25.119 Atherosclerotic heart disease of native coronary artery with unspecified angina pectoris; I25.2 Old myocardial infarction; F17.210 Nicotine dependence, cigarettes, uncomplicated; Z79.891 Long term (current) use of opiate analgesic; Z86.711 Personal history of pulmonary embolism; Z95.5 Presence of coronary angioplasty implant and graft; Z79.82 Long term (current) use of aspirin; Z79.899 Other long term (current) drug therapy; Z79.02 Long term (current) use of antithrombotics/antiplatelets; T45.1X5A Adverse effect of antineoplastic and immunosuppressive drugs, initial encounter
CPT/HCPCS: 36591; 71045; 80048; 80053; 80076; 83735; 84100; 84484; 85025; 87070; 87205; 87633; 87635; 93005; 94640; 97162; 97166; 97802; 99251; 99285; 99406; C9803; J7030; A4216; G0463; J2405; U0003

== ENCOUNTER 2019-11-03 20:32 | Emergency (ER) | payer BC, SELFPAY ==
[2017-01-12 13:36] VITALS: BMI 26.6
[2019-10-29 10:33] VITALS: BMI 20.7
[2019-11-03 20:33] VITALS: BP 128/69; PULSE 106; RESP 18; TEMP 36.6; O2SAT 99; BMI 21.2
--- NOTE | 2019-11-03 20:39 | ED.DCSUM_ITS ---
- ER Visit Summary Date of Service: 11/03/19 Chief Complaint: Chest pain History of Present Illness: The patient is a [address] 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 He has a history of lung cancer and is on chemotherapy. His last dose was October 21. He got 3 weeks of radiati on prior to this. He reports that he has had substernal chest pain for the past 4 hours. He describes this as a pressure that is 10 out of 10 at worst an 8 out of 10 currently. Is worsened by nothing. It is relieved by deep breathing. Reports he is lightheaded, this does get worse when he stands. He is not passed out. Patient reports that he has bilateral ankle swelling that began yesterday. He denies any pain in his calves. He states that last time he was hospitalized he was told to stop his Eliquis. He had not taken it from October 30-. He did take a dose this morning. Patient also complains of pain under his tongue that began yesterday. Is a sharp pain is 4-10 in severity. Patient reports he has a chronic cough that is unchanged. He denies any fever. Physical Examination: Vitals: Stable. Afebrile. General: Well-nourished and well-developed. HEENT: Bony prominence behind his mandibular canines bilaterally. In the midline bilaterally behind his mandibular central incisors there is approximately 1 cm in diameter blood-filled blister. There are no other lesions. Head: Normocephalic atraumatic. Neck: Supple, no lymphadenopathy. No JVD. Nontender. Cardiovascular: Regular rate and rhythm. No murmurs. Respiratory: No respiratory distress. Clear to auscultation bilaterally. Abdominal: Soft, nontender, nondistended, normal bowel sounds. No guarding, rebound, or peritoneal signs. Back: Nontender. Extremities: Nontender, 1+ pitting edema lower extremities bilaterally. Skin: Normal color, no rash. Neurologic: Alert and oriented ?3. Cranial nerves II through XII are intact. Normal strength and sensation. Psych: Normal affect. Test Results: EKG is sinus at 89 with PVC and no acute changes. Troponin is negative. LFTs show an albumin of 2.9, protein 6.0. ALT is 10 and AST is 10. Chem-7 shows a calcium of 8.0. CBC shows a white count of 23.6, H&H 11.1 33.5, platelets 124. Clinical Impression(s) from Imaging Studies Chest X-Ray 11/03/19 21:30 IMPRESSION: No acute cardiopulmonary findings or changes. Negative for new consolidation, atelectasis or pleural effusion. Stable areas of fibrotic change in the right mid lung and left lung base. Left PICC ends in the distal superior vena cava. Electronically Signed: Sosa Walton MD at 22:04 EDT , Service support , Emergency Department Course and Treatment: Patient was treated with a dose of morphine IV and is resting comfortably. I discussed the patient and he did receive Neulasta following chemotherapy. However, he does not know when this started or finished. Treatment Plan: Had a prolonged discussion the patient that he needs to restart his Eliquis. Follow-up with his oncologist in 2 days for another exam. Continue to use his MS Contin and MSIR for pain. Return to the emergency department for any worsening symptoms. Disposition: To home in improved and stable condition. Impression: 1 1. Chronic chest pain. 2. Lung cancer on chemotherapy. 3. Leukocytosis, uncertain cause. This note was generated with [employer] dictation software. It may contain incorrect words, spelling, and punctuation that were not noted in review of the chart prior to signing ED Disposition - Plan for ED Patient: Instructions: ED Chest Pain Atypical Unkn Cause Referrals: Doctor,Your [STAFF PHYSICIAN] - 2 Days
--- NOTE | 2019-11-03 20:50 | EKG12_ITS ---
Test Reason : CP Blood Pressure : / mmHG Vent. Rate : 089 BPM Atrial Rate : 089 BPM P-R Int : 138 ms QRS Dur : 082 ms QT Int : 360 ms P-R-T Axes : 057 -01 046 degrees QTc Int : 438 ms Sinus rhythm with occasional Premature ventricular complexes Otherwise normal ECG Confirmed by RUTH VENTURA, MALCOM ([id number]), editorial clerk FEMI AKHTAR ([id number]) on 11/08/2019 12:58:14 P M Referred By: CHAYA Confirmed By:EB MIRANDA MD
[2019-11-03] MEDS: Ondansetron 4 MG/2 ML Vial IV (21:15)
[2019-11-03] MEDS: 0.9% Normal Saline 1,000 ML 1000 ML IV (21:15)
[2019-11-03] MEDS: Morphine 4 MG/ML Syringe IV (21:17)
[2019-11-03 21:27] VITALS: BP 116/78; PULSE 91; RESP 17
--- NOTE | 2019-11-03 21:30 | RAD_ITS ---
STUDY: X-RAY CHEST REASON FOR EXAM: Male, 54 years old. dizziness, sore throat TECHNIQUE: 1 view COMPARISON: Prior chest radiograph of 10/28/2019 FINDINGS: Left PICC ends in the distal superior vena cava. Lung landa remain expanded without new consolidation or new atelectasis. Stable areas of scarring at the left lung base and mid right lung. Normal cardiac size. Normal mediastinum and stephen. Normal visualized pulmonary arteries. Normal visualized aortic arch and descending thoracic aorta. Dextrocurvature of the thoracic spine. Normal visualized ribs, clavicles, and shoulders. There is no demonstrated abnormality of the visualized soft tissue structures of the upper abdomen. RAD/Chest 1 View (Portable) IMPRESSION: No acute cardiopulmonary findings or changes. Negative for new consolidation, atelectasis or pleural effusion. Stable areas of fibrotic change in the right mid lung and left lung base. Left PICC ends in the distal superior vena cava. Electronically Signed: Sosa Walton MD at 22:04 EDT , Service support ,
[2019-11-03 21:35] LABS: Hematocrit 33.5 % (40-54); Hemoglobin 11.1 g/dL (13.0-16.5); Mean Corp Hgb Conc 33.1 g/dL (32-36); Mean Corpuscular Hgb 29.1 pg (27.0-32.0); Mean Corpuscular Volume 87.7 fL (80-94); POSITIVE COUNT YES; POSITIVE MORPHOLOGY YES; Platelet Count 124 K/mm3 (150-450); RBC Distribution Width CV 15.3 % (11.6-14.6); RBC Distribution Width SD 47.3 fl (35.1-43.9); Red Blood Count 3.82 M/mm3 (4.6-6.2); White Blood Count 23.6 K/mm3 (4.4-11.0)
[2019-11-03 21:46] LABS: Differential Indicated MANUAL DIFF
[2019-11-03 21:48] LABS: ALB/GLOB Ratio 0.9 RATIO (0.9-2.4); AST(SGOT) 10 U/L (15-37); Alanine Aminotransfer ALT/SGPT 10 U/L (16-61); Albumin, Serum 2.9 g/dL (3.2-5.0); Alkaline Phosphatase 104 U/L (45-117); Anion Gap 4 (5-15); BUN 10 mg/dL (7-18); BUN/Creat Ratio 11.1 RATIO (10-20); Chloride 103 mmol/L (98-107); EST Glomerular Filtration Rate 93 mL/min (>60); Est Glom Filt Rate - Afr Amer 113 mL/min (>60); Estimated Creatinine Clearance 102.34 ml/min; Globulin 3.1 g/dL (2.2-4.2); Glucose 105 mg/dL (74-106); Potassium 3.8 mmol/L (3.5-5.1); Sodium Level 138 mmol/L (136-145)
[2019-11-03 22:18] VITALS: BP 125/86; PULSE 97; RESP 18
[2019-11-03 22:28] LABS: Lymphocyte 4 % (19-41); Metamyelocyte 1 % (0-1); Monocyte 1 % (0-10); Myelocyte 1 (0-0); Neutrophil-Band 5 % (0-5); Neutrophil-Segmented 88 % (47-70); Total Cells Counted 100 (MANUAL DIFF)
[2019-11-03 22:30] LABS: Absolute Lymphocyte Count 0.94 X10^3/uL (0.83-4.51)
[2019-11-03 22:31] LABS: Anisocytosis RARE; Platelet Estimate SLT DEC (ADEQ); Red Cell Morphology N CHROM NORMAL (NORM C&C)
[2019-11-03 22:34] VITALS: RESP 18
[2019-11-03 22:34] LABS: Alcohol, Blood (Medical)-Serum < 3.0 mg/dL
[2019-11-05 14:14] LABS: Pathologist Review Reviewed
== END 2019-11-03 22:36 | disposition home or self-care (01) ==
PROVIDERS: Emergency Provider Emergency Medicine
DX: R07.89 Other chest pain (principal); G89.29 Other chronic pain; C34.90 Malignant neoplasm of unspecified part of unspecified bronchus or lung; D72.829 Elevated white blood cell count, unspecified; M79.89 Other specified soft tissue disorders; R51 Headache; J02.9 Acute pharyngitis, unspecified; K14.6 Glossodynia; I49.3 Ventricular premature depolarization; I10 Essential (primary) hypertension; I25.10 Atherosclerotic heart disease of native coronary artery without angina pectoris; E78.00 Pure hypercholesterolemia, unspecified; Z79.82 Long term (current) use of aspirin; Z79.01 Long term (current) use of anticoagulants; Z79.899 Other long term (current) drug therapy; F17.200 Nicotine dependence, unspecified, uncomplicated
CPT/HCPCS: 36591; 71045; 80053; 80320; 84484; 85025; 93005; 96361; 96374; 96375; 99285; J7030; A4216; G0480; J2405

== ENCOUNTER 2019-11-09 21:15 | Emergency (ER) | payer BC, SELFPAY ==
[2017-01-12 13:36] VITALS: BMI 26.6
[2019-11-09 21:16] VITALS: BP 85/61; PULSE 80; RESP 18; TEMP 36.8; O2SAT 98; BMI 22.2
--- NOTE | 2019-11-09 21:54 | ED.VIS.GEN ---
History of Present Illness Chief Complaint: Chest Pain Narrative: 54-year-old male with history of CT with cardiac stents, CAD, hypertension, non-small cell lung carcinoma presenting with left-sided chest pain which has been present for 3 days. He states tonight it is worse. He is chronically on morphine at home but states he has trouble swallowing the pills all the time. Tonight his pain got worse over the last 3 hours. He denies cough, fever, chills, nausea, vomiting. His heme oncologist started him on therapy October 21. He scheduled to go again next month. Patient is anticoagulated on Eliquis. - Past Medical History (1) Essential (primary) hypertension Status: Chronic (2) HLD (hyperlipidemia) Status: Chronic (3) History of coronary artery stent placement Status: Chronic Comment: BMS-Prox and Distal RCA 12/23/16 (4) NSTEMI (non-ST elevated myocardial infarction) Status: Chronic Past Medical History - Allergies and Home Meds Allergies/Adverse Reactions: Allergies No Known Allergies Allergy (Verified 11/09/19 21:26) Primary Care Physician: Care Physician,No Primary [Primary Care Provider] - Prior records reviewed: Yes Past Medical History: - - Non-small cell carcinoma Surgical History: - - PCI x 2, T+A, L inguinal hernia repair, status post left neck surgery for abscess, status post left inguinal hernia repair Lives: Alone Smoking Status: Current every day smoker Drugs: None - Family History Maternal Family History: Family History (Last Reviewed 03/27/19 @ 18:19 by Mary Menjivar NP, OVERHEAD CRANE TECHNICIAN-C) Father Myocardial infarction, Onset Age: 36 Mother Myocardial infarction Cancer Family History: Reports: Cancer - breast, Heart Disease - CT Paternal Family History: Family History (Last Reviewed 03/27/19 @ 18:19 by Mary Menjivar NP, OVERHEAD CRANE TECHNICIAN-C) Father Myocardial infarction, Onset Age: 36 Mother Myocardial infarction Cancer Family History: Reports: - - Patient notes a paternal family history of heart disease, passing secondary to fatal CT at age 36. Sibling Family History: Family History (Last Reviewed 03/27/19 @ 18:19 by Mary Menjivar NP, OVERHEAD CRANE TECHNICIAN-C) Father Myocardial infarction, Onset Age: 36 Mother Myocardial infarction Cancer Family History: Reports: - - Patient notes a history of a sister who underwent a CABG early in life. Review of Systems General: Denies: Chills, Fever, Sweats Eyes: Denies: Visual changes - bilaterally, Diplopia ENT: Denies: Rhinorrhea, Sore throat Cardiovascular: Reports: Chest pain. Denies: Palpitations, Heart racing Respiratory: Denies: Dyspnea, Cough, Sputum, Dyspnea on exertion Gastrointestinal: Denies: Abdominal pain, Nausea, Vomiting Genitourinary: Denies: Dysuria, Hematuria Musculoskeletal: Denies: Myalgias, Arthralgias Skin: Denies: Rash, Abscess Hematologic: Denies: Easy bruising, Easy bleeding Physical Exam Vital Signs/Narrative: Vital Signs Temp Pulse Resp BP Pulse Ox 11/09/19 21:16 98.2 F 80 18 85/61 L 98 General: Well nourished, No Acute Distress Head: Normocephalic, Atraumatic Eyes: Perrl, EOMI. Negative for: Pale conjunctiva ENT: Moist mucous membranes, No rhinorrhea Cardiovascular: Regular rate, Regular rhythm Respiratory: No distress, CTA bilaterally Abdomen: Soft, Nontender Extremities: Nontender, No edema Skin: Normal color, No rash. Negative for: Cyanosis, Diaphoresis Neurological: Alert, Oriented x3 Psychological: Normal affect, Normal Mood Diagnostic/Tx/Re-eval - Rhythm Strip Rhythm Strip: Sinus Rhythm Rate: 84 - EKG Initial EKG Interpretation: Sinus Rhythm - PVC's - Medical Decision Making 54-year-old male with history of non-small cell carcinoma, cardiac disease anticoagulated on Eliquis and with chest pain on the right side which he states is been constant for 3 days. He states over the last couple of hours is been worse. He does not have any nausea, diaphoresis. He does have morphine at home but he has trouble taking it due to swallowing issues secondary to metastasis. His chest x-ray shows some small change in his minor fissure. He has not had fever, chills, cough, signs of infection. His lab work-up today is normal. His troponin is negative. His EKG shows no signs of ischemia. Given that he had constant pain for 3 days I do not believe he needs repeat EKG and troponin. He is anticoagulated so he does not need a CTA. I believe his pain is likely secondary to his non-small cell carcinoma. He has morphine at home. He has a palliative care consult on Tuesday as well as follow-up with his heme oncologist Dr. Can. Patient will make these follow-up appointments. He is discharged home in stable condition. Impression: 1. Chest pain 2. History of non-small cell carcinoma ED Disposition - Plan for ED Patient: Disposition: Home or Assisted Living Instructions: ED Chest Pain NonCardiac Referrals: Care Physician,No Primary [Primary Care Provider] -
--- NOTE | 2019-11-09 21:56 | EKG12_ITS ---
Test Reason : CP Blood Pressure : / mmHG Vent. Rate : 084 BPM Atrial Rate : 084 BPM P-R Int : 138 ms QRS Dur : 080 ms QT Int : 370 ms P-R-T Axes : 017 -09 039 degrees QTc Int : 437 ms Sinus rhythm with sinus arrhythmia with occasional Premature ventricular complexes Otherwise normal ECG Confirmed by RUTH VENTURA, MALCOM ([id number]), editorial clerk FEMI AKHTAR ([id number]) on 11/12/2019 2:51:02 PM Referred By: AKIKO Confirmed By:EB MIRANDA MD
[2019-11-09 22:14] LABS: Absolute Lymphocyte Count 0.81 X10^3/uL (0.83-4.51); Absolute Neutrophil Count 6.3 X10^3/uL (2.0-7.7); Basophil# 0.03 X10^3/uL; Basophil% 0.4 % (0-1); Eosinophil# 0.01 X10^3/uL; Eosinophils% 0.1 % (0-5); Hematocrit 34.3 % (40-54); Lymphocyte # 0.81 X10^3/ul (4.0); Lymphocyte % 9.8 % (19-41); Mean Corp Hgb Conc 32.1 g/dL (32-36); Mean Corpuscular Hgb 29.1 pg (27.0-32.0); Mean Corpuscular Volume 90.7 fL (80-94); Mean Platelet Vol. 9.4 fl (6.2-12.0); Monocyte# 0.77 X10^3/uL; Monocyte% 9.3 % (0-10); NRBC Flagged by Analyzer 0 % (0-5); Neutrophil # 6.28 X10^3/uL (2.7-7.7); Neutrophil % 75.9 % (47-70); Platelet Count 184 K/mm3 (150-450); RBC Distribution Width SD 50.9 fl (35.1-43.9); Red Blood Count 3.78 M/mm3 (4.6-6.2); White Blood Count 8.3 K/mm3 (4.4-11.0)
[2019-11-09 22:29] VITALS: PULSE 91; RESP 16
[2019-11-09] MEDS: Aspirin 81 MG TAB.CHEW 324 MG PO (22:34)
[2019-11-09 22:35] LABS: Anion Gap 6 (5-15); BUN 8 mg/dL (7-18); BUN/Creat Ratio 10.3 RATIO (10-20); Calcium,Total 8.1 mg/dL (8.5-10.1); Chloride 101 mmol/L (98-107); Creatinine, Serum 0.77 mg/dL (0.70-1.30); EST Glomerular Filtration Rate 111 mL/min (>60); Est Glom Filt Rate - Afr Amer 135 mL/min (>60); Estimated Creatinine Clearance 125.18 ml/min; Glucose 85 mg/dL (74-106); Potassium 4.2 mmol/L (3.5-5.1); Sodium Level 135 mmol/L (136-145)
[2019-11-09] MEDS: fentaNYL 100 MCG/2 ML Ampul 25 MCG IV (22:47)
[2019-11-09] MEDS: 0.9% Normal Saline 1,000 ML 999 ML IV (22:48)
[2019-11-09 22:49] VITALS: BP 98/58; PULSE 94; RESP 20
--- NOTE | 2019-11-09 22:58 | RAD_ITS ---
HISTORY: patient with chest pain and shortness of breath for about 2 hours now EXAM: XR Chest 1 View: COMPARISON: November 03, 2019 FINDINGS: # of images incl. paperwork: 1 Left arm PICC tip catheter is in the SVC and unchanged Thickening the minor fissure is slightly more prominent Heart is not enlarged. No acute osseous pathology perceived. Pulmonary vascularity is distinct. No effusions. RAD/Chest 1 View (Portable) IMPRESSION: Some thickening to the minor fissure similar to the previous study but slightly more prominent. Scarring versus small right effusion. . at 2323 Reported and signed by: Gilbert Ortiz MD Electronically Signed: Gilbert Ortiz MD at 23:22 EDT Tel , Service support ,
[2019-11-09 23:44] VITALS: BP 115/77; O2SAT 98
[2019-11-09] MEDS: fentaNYL 100 MCG/2 ML Ampul 50 MCG IV (23:51)
== END 2019-11-10 00:03 | disposition home or self-care (01) ==
PROVIDERS: Emergency Provider Student in an Organized Health Care Education/Training Program
DX: R07.9 Chest pain, unspecified (principal); C34.90 Malignant neoplasm of unspecified part of unspecified bronchus or lung; I49.3 Ventricular premature depolarization; I10 Essential (primary) hypertension; I25.2 Old myocardial infarction; I25.10 Atherosclerotic heart disease of native coronary artery without angina pectoris; E78.5 Hyperlipidemia, unspecified; Z95.5 Presence of coronary angioplasty implant and graft; Z79.01 Long term (current) use of anticoagulants; Z79.82 Long term (current) use of aspirin; Z79.899 Other long term (current) drug therapy; F17.200 Nicotine dependence, unspecified, uncomplicated
CPT/HCPCS: 36591; 71045; 80048; 84484; 85025; 93005; 96361; 96374; 96376; 99285; A4216

== ENCOUNTER 2019-11-16 17:42 | Inpatient (IN) | payer BC, SELFPAY ==
[2017-01-12 13:36] VITALS: BMI 26.6
[2019-11-16] VITALS (9 sets, daily range): BP systolic 95–143; BP diastolic 69–109; PULSE 93–141; RESP 16–28; TEMP 36.6–38.3; O2SAT 89–100; BMI 21.2
--- NOTE | 2019-11-16 17:48 | ED.VIS.GEN ---
History of Present Illness Chief Complaint: Shortness of Breath Informant: Patient Narrative: 54-year-old male with history of OR with cardiac stents, CAD, hypertension, non-small cell lung carcinoma presenting with chest pain which is central. He states it started about an hour ago acutely and describes it as pressure-like. Patient denies any fever, chills, cough. Patient currently is on chemotherapy and has followed up for his second dose which was earlier this week.He had a palliative care consult on Tuesday as well as follow-up with his heme oncologist Dr. Can. He states that they told him nothing about nothing . - Past Medical History (1) New onset atrial fibrillation Status: Chronic (2) Alcohol abuse Status: Chronic (3) Atherosclerosis of coronary artery of [place] heart with angina pectoris Status: Chronic Comment: BMS-Prox and Distal RCA 12/23/16 (4) Essential (primary) hypertension Status: Chronic (5) HLD (hyperlipidemia) Status: Chronic (6) History of coronary artery stent placement Status: Chronic Comment: BMS-Prox and Distal RCA 12/23/16 (7) NSTEMI (non-ST elevated myocardial infarction) Status: Chronic Past Medical History - Allergies and Home Meds Allergies/Adverse Reactions: Allergies No Known Allergies Allergy (Verified 11/09/19 21:26) Primary Care Physician: Care Physician,No Primary [Primary Care Provider] - Past Medical History: - - Non-small cell carcinoma stage III Surgical History: - - PCI x 2, T+A, L inguinal hernia repair, status post left neck surgery for abscess, status post left inguinal hernia repair Lives: Alone Smoking Status: Current every day smoker Drugs: None - Family History Maternal Family History: Family History (Last Reviewed 03/27/19 @ 18:19 by Mary Menjivar NP, FITNESS PROFESSIONAL-C) Father Myocardial infarction, Onset Age: 36 Mother Myocardial infarction Cancer Family History: Reports: Cancer - breast, Heart Disease - OR Paternal Family History: Family History (Last Reviewed 03/27/19 @ 18:19 by Mary Menjivar NP, FITNESS PROFESSIONAL-C) Father Myocardial infarction, Onset Age: 36 Mother Myocardial infarction Cancer Family History: Reports: - - Patient notes a paternal family history of heart disease, passing secondary to fatal OR at age 36. Sibling Family History: Family History (Last Reviewed 03/27/19 @ 18:19 by Mary Otto FITNESS PROFESSIONAL, FITNESS PROFESSIONAL-C) Father Myocardial infarction, Onset Age: 36 Mother Myocardial infarction Cancer Family History: Reports: - - Patient notes a history of a sister who underwent a CABG early in life. Review of Systems General: Denies: Chills, Fever, Sweats Eyes: Denies: Visual changes - bilaterally, Diplopia ENT: Denies: Rhinorrhea, Sore throat Cardiovascular: Reports: Chest pain, Heart racing Respiratory: Reports: Dyspnea. Denies: Cough, Sputum Gastrointestinal: Denies: Abdominal pain, Nausea, Vomiting Genitourinary: Denies: Dysuria, Hematuria Musculoskeletal: Denies: Myalgias, Arthralgias Skin: Denies: Rash, Abscess Neurological: Denies: Headache, Parasthesia, Numbness Physical Exam Vital Signs/Narrative: Vital Signs Temp Pulse Resp BP Pulse Ox 11/16/19 17:42 97.8 F 141 H 28 H 95/69 96 General: Well nourished, Acute Distress, - - Tachycardic and tachypneic Head: Normocephalic, Atraumatic Eyes: Perrl, EOMI ENT: Moist mucous membranes, No rhinorrhea Cardiovascular: Regular rhythm, Tachycardia Respiratory: No distress, CTA bilaterally, Chest nontender Abdomen: Soft, Nontender Extremities: Nontender, No edema Skin: Normal color, No rash. Negative for: Diaphoresis Neurological: Alert, Oriented x3 Psychological: Normal affect, Normal Mood Diagnostic/Tx/Re-eval Clinical Impression(s) from Imaging Studies Chest X-Ray 11/16/19 18:13 IMPRESSION: No acute cardiopulmonary process. Electronically Signed: Luna Clement MD at 18:30 EDT Tel , Service support , Chest CTA 11/16/19 19:19 IMPRESSION: No demonstrated pulmonary embolism or arterial dissection. Interval decrease in size of right hilar mass, likely reflecting a pathologically enlarged lymph node. Interval decrease in size of right paratracheal lymph node. Atherosclerosis. Emphysema. Electronically Signed: Luna Clement MD at 20:29 EDT Tel , Service support , Soft Tissue Neck CT 11/16/19 19:20 IMPRESSION: No focal mass or malignant adenopathy utilizing CT size criteria.. There has been significant improvement in previously noted soft tissue thickening of the posterior hypopharyngeal wall and fluid No new masses identified. Endoscopy would be helpful for further evaluation if indicated Electronically Signed: Jarrod Alegre MD at 20:45 EDT , Service support , Laboratory Data 11/16/19 11/16/19 11/16/19 18:10 18:10 18:10 WBC 19.4 H RBC 3.80 L Hgb 11.1 L Hct 34.3 L MCV 90.3 MCH 29.2 MCHC 32.4 RDW Std Deviation 56.9 H RDW Coeff of Radha 18.3 H Plt Count 237 MPV 10.8 Neut % (Auto) Not Reportable Absolute Neuts (auto) 18.0 H Absolute Lymphs (auto) 0.97 Total Counted 100 Neutrophils % (Manual) 78 H Band Neutrophils % 15 H Lymphocytes % (Manual) 5 L Monocytes % (Manual) 2 Diff Path Review May foll Platelet Estimate ADEQUATE RBC Morphology N CHROM Anisocytosis 1+ PT 12.4 INR 1.0 APTT 27.0 Sodium 134 L Potassium 3.7 Chloride 100 Carbon Dioxide 23.0 Anion Gap 11 BUN 9 Creatinine 0.62 L Estim Creat Clear Calc 148.56 Est GFR (MDRD) Af Amer 174 Est GFR (MDRD) Non-Af 144 BUN/Creatinine Ratio 14.5 Glucose 96 Lactic Acid Calcium 7.9 L Total Bilirubin 0.60 AST 13 L ALT 18 Alkaline Phosphatase 116 Troponin I < 0.015 Total Protein 6.3 L Albumin 2.9 L Globulin 3.4 Albumin/Globulin Ratio 0.9 Urine Color Urine Clarity Urine pH Ur Specific Cherry Log Urine Protein Urine Glucose (UA) Urine Ketones Urine Occult Blood Urine Nitrite Urine Bilirubin Urine Urobilinogen Ur Leukocyte Esterase Urine RBC Urine WBC Ur Squamous Epith Cells Urine Bacteria Urine Mucus 11/16/19 11/16/19 18:10 19:00 WBC RBC Hgb Hct MCV MCH MCHC RDW Std Deviation RDW Coeff of Radha Plt Count MPV Neut % (Auto) Absolute Neuts (auto) Absolute Lymphs (auto) Total Counted Neutrophils % (Manual) Band Neutrophils % Lymphocytes % (Manual) Monocytes % (Manual) Diff Path Review Platelet Estimate RBC Morphology Anisocytosis PT INR APTT Sodium Potassium Chloride Carbon Dioxide Anion Gap BUN Creatinine Estim Creat Clear Calc Est GFR (MDRD) Af Amer Est GFR (MDRD) Non-Af BUN/Creatinine Ratio Glucose Lactic Acid 4.0 H* Calcium Total Bilirubin AST ALT Alkaline Phosphatase Troponin I Total Protein Albumin Globulin Albumin/Globulin Ratio Urine Color Yellow Urine Clarity Clear Urine pH 6.5 Ur Specific Cherry Log 1.005 Urine Protein 15 H Urine Glucose (UA) Normal Urine Ketones Negative Urine Occult Blood Negative Urine Nitrite Negative Urine Bilirubin Negative Urine Urobilinogen Normal Ur Leukocyte Esterase Negative Urine RBC 0 SEEN Urine WBC 0-5 SEEN Ur Squamous Epith Cells 0 SEEN Urine Bacteria 0 SEEN Urine Mucus 0 SEEN - Rhythm Strip Rhythm Strip: Sinus Tach Rate: 116 Ectopy: PVC(s) - EKG Initial EKG Interpretation: No Acute Injury Pattern, Sinus Tachycardia, - - PVC - Medical Decision Making 54-year-old male presenting with chest pain which he states is central. He states it feels like pressure. His initial EKG was sinus tachycardia with 1 PVC. There is no ST elevations or depressions. Patient is also complaining of his throat pain. This is a chronic issue as well. Sepsis work-up was started due to tachycardia and slight hypotension. He was also found to have a 19,000 white count with 15 bands as well as a lactic acid of 4.0. She was given 2 doses of fentanyl which was not helping his pain. Patient did develop a fever while he was in the emergency department. I tried to order him Tylenol however he refused and states this upsets his stomach. Initial chest x-ray was negative. Urinalysis was negative. Because of his abnormal labs I did CT soft tissue his neck and this is improved from previous. CTA of the chest is negative. Only possible source at this point would be his his port however he does not report getting any symptoms during infusion. He is not had any pain or erythema around the port. He was given 30 cc/kg of IV fluids as well as vancomycin and Zosyn. He will be admitted for further treatment. Impression: 1. Sirs criteria 2. Tachycardia 3. Fever of unknown origin 4. Immune compromised state secondary to cancer chemotherapy 5. Chest pain 6. Lactic acidosis 8. Leukocytosis ED Disposition - Plan for ED Patient: Referrals: Care Physician,No Primary [Primary Care Provider] -
--- NOTE | 2019-11-16 17:50 | EKG12_ITS ---
Test Reason : SOB/CP Blood Pressure : / mmHG Vent. Rate : 116 BPM Atrial Rate : 116 BPM P-R Int : 130 ms QRS Dur : 082 ms QT Int : 320 ms P-R-T Axes : 055 014 064 degrees QTc Int : 444 ms Sinus tachycardia with occasional Premature ventricular complexes Otherwise normal ECG Confirmed by RUTH VENTURA, MALCOM ([id number]), image editor FEMI AKHTAR ([id number]) on 11/21/2019 11:17:55 AM Referred By: ALEJANDRO Confirmed By:EB MIRANDA MD
--- NOTE | 2019-11-16 18:13 | RAD_ITS ---
STUDY: X-RAY CHEST REASON FOR EXAM: Male, 54 years old. 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 TECHNIQUE: Single frontal view of the chest. COMPARISON: 11/09/2019 FINDINGS: There is a left-sided central venous catheter in place terminating within the expected region of the superior vena cava. There is stable atelectasis and/or scarring within the right midlung. Normal size heart. Normal mediastinum and stephen. Normal visualized pulmonary arteries. Normal visualized aortic arch and descending thoracic aorta. Normal visualized thoracic spine. Normal visualized ribs, clavicles, and shoulders. There is no demonstrated abnormality of the visualized soft tissue structures of the upper abdomen. RAD/Chest 1 View (Portable) IMPRESSION: No acute cardiopulmonary process. Electronically Signed: Luna Clement MD at 18:30 EDT Tel , Service support ,
[2019-11-16 18:30] LABS: Hematocrit 34.3 % (40-54); Hemoglobin 11.1 g/dL (13.0-16.5); Mean Corp Hgb Conc 32.4 g/dL (32-36); Mean Corpuscular Hgb 29.2 pg (27.0-32.0); Mean Corpuscular Volume 90.3 fL (80-94); Mean Platelet Vol. 10.8 fl (6.2-12.0); POSITIVE COUNT YES; POSITIVE DIFFERENTIAL YES; POSITIVE MORPHOLOGY YES; Platelet Count 237 K/mm3 (150-450); RBC Distribution Width CV 18.3 % (11.6-14.6); RBC Distribution Width SD 56.9 fl (35.1-43.9); White Blood Count 19.4 K/mm3 (4.4-11.0)
[2019-11-16 18:40] LABS: Prothrombin Time (Protime)PT. 12.4 SECONDS (11.7-14.9)
[2019-11-16 18:42] LABS: Differential Indicated MANUAL DIFF
[2019-11-16 18:52] LABS: ALB/GLOB Ratio 0.9 RATIO (0.9-2.4); AST(SGOT) 13 U/L (15-37); Alanine Aminotransfer ALT/SGPT 18 U/L (16-61); Albumin, Serum 2.9 g/dL (3.2-5.0); Alkaline Phosphatase 116 U/L (45-117); Anion Gap 11 (5-15); BUN 9 mg/dL (7-18); BUN/Creat Ratio 14.5 RATIO (10-20); Calcium,Total 7.9 mg/dL (8.5-10.1); Chloride 100 mmol/L (98-107); Creatinine, Serum 0.62 mg/dL (0.70-1.30); EST Glomerular Filtration Rate 144 mL/min (>60); Est Glom Filt Rate - Afr Amer 174 mL/min (>60); Estimated Creatinine Clearance 148.56 ml/min; Globulin 3.4 g/dL (2.2-4.2); Glucose 96 mg/dL (74-106); Potassium 3.7 mmol/L (3.5-5.1); Protein, Total 6.3 g/dL (6.4-8.2); Sodium Level 134 mmol/L (136-145)
[2019-11-16] MEDS: fentaNYL 100 MCG/2 ML Ampul 50 MCG IV ×2 (18:54→20:08)
[2019-11-16] MEDS: 0.9% Normal Saline 1,000 ML 999 ML IV ×2 (18:54→19:50)
[2019-11-16] MEDS: Ondansetron 4 MG/2 ML Vial IV (18:54)
[2019-11-16 19:07] LABS: Bacteria 0 SEEN /hpf (None Seen); Mucous, Urine 0 SEEN /hpf (<or=2+); Red Blood Cells-Urine 0 SEEN /hpf (0-5); Squamous Epithelial Cells - UA 0 SEEN /hpf (0-5)
[2019-11-16 19:09] LABS: Color, Urine Yellow (Yellow); Glucose, Dipstick Normal (Normal); Ketone-Dipstick Negative (Negative); Leukocyte Esterase-Dipstick Negative /ul (Negative); Nitrite-Dipstick Negative (Negative); Occult Blood-Urine Negative /ul (Negative); Protein-Dipstick 15 mg/dl (Negative); Specific Gravity, Urine 1.005 (1.002-1.030); Urine Bilirubin Dipstick Negative (Negative); Urine Clarity Clear (Clear); Urine Urobilinogen Normal (Normal); Urine pH 6.5 (5.0 - 8.0)
[2019-11-16 19:15] LABS: White Blood Cells 0-5 SEEN /hpf (0-5)
--- NOTE | 2019-11-16 19:19 | CT_ITS ---
STUDY: CTA CHEST REASON FOR EXAM: Male, 54 years old. CP, SOB, LUNG CA RADIATION DOSAGE (If Supplied By Facility): CTDIvol = ( 14.69 ) mGy, DLP = ( 899.02 ) mGycm TECHNIQUE: The examination was performed with the intravenous administration of IV 100mL Isovue-370. Post-processing of the angiographic images was performed, with multiplanar reformation and 3D reconstruction. Individualized dose optimization techniques were used for this CT. COMPARISON: 09/08/2019 FINDINGS: There are emphysematous changes present. There is a 3.0 x 3.4 cm right hilar mass that has decreased since the prior examination previously measuring by my measurement 3.7 x 3.6 cm. There is a pathologically enlarged right paratracheal lymph node measuring 4.1 x 4.3 cm, previously measuring 4.2 x 5.0 cm. There is stable atelectasis and/or scarring within the mid and lower right lung. There is a stable 3.3 mm nodule within the right upper lobe. Normal enhancement of the main pulmonary artery and right and left pulmonary arteries. There is suboptimal enhancement of the bilateral peripheral pulmonary arteries. There is no demonstrated pulmonary embolism. Normal thoracic aorta and visualized great vessels. There is no demonstrated aortic dissection. There are calcifications of the coronary arteries. Normal visualized trachea and bronchi. Normal chest wall structures. There are degenerative changes of thoracic spine. There is an old healed left posterior rib fracture. Limited images of the upper abdomen demonstrate a gallstone within the gallbladder. CT/CTA Chest W/WO Contrast IMPRESSION: No demonstrated pulmonary embolism or arterial dissection. Interval decrease in size of right hilar mass, likely reflecting a pathologically enlarged lymph node. Interval decrease in size of right paratracheal lymph node. Atherosclerosis. Emphysema. Electronically Signed: Luna Clement MD at 20:29 EDT Tel , Service support ,
[2019-11-16 19:20] LABS: Lymphocyte 5 % (19-41); Monocyte 2 % (0-10); Neutrophil-Band 15 % (0-5); Neutrophil-Segmented 78 % (47-70); Total Cells Counted 100 (MANUAL DIFF)
--- NOTE | 2019-11-16 19:20 | CT_ITS ---
STUDY: CT SOFT TISSUE NECK WITH CONTRAST REASON FOR EXAM: Male, 54 years old. CP, SOB, LUNG CA RADIATION DOSAGE (If Supplied By Facility): CTDIvol = ( 14.69 ) mGy, DLP = ( 899.02 ) mGycm TECHNIQUE: The patient was scanned in a multi-detector CT scanner. High resolution transaxial imaging was performed following intravenous administration of IV 100mL Isovue-370. Sagittal and coronal images were reconstructed. Individualized dose optimization techniques were used for this CT. COMPARISON: 01/07/2019 FINDINGS: Normal bilateral parotid glands. Normal bilateral chairperson anesthesiology spaces. Normal bilateral parapharyngeal spaces. Normal bilateral carotid spaces. Normal bilateral sublingual and submandibular glands and spaces. Normal visualized nasopharynx. Normal retropharyngeal space. Normal perivertebral space. Normal visualized bilateral faucial tonsils. The visualized tongue, tongue base and oropharynx are normal. The visualized cervical lymph nodes (levels I-) are within normal size limits, and maintain normal morphology. There is no demonstrated solid or cystic mass lesion. There is no abnormal contrast enhancement. Normal epiglottis, bilateral vallecula and hypopharynx. The pre-epiglottic and paraglottic adipose spaces are normal. Normal visualized bilateral piriform sinuses, aryepiglottic folds, vocal cords, and arytenoid-cricoid articulations. Normal subglottic trachea. Normal bilateral lobes of the thyroid gland. Normal visualized pulmonary apices. There is mild mucosal thickening of the right maxillary sinus. Cervical spine demonstrates advanced spondylosis. Previously noted soft tissue thickening and fluid within the hypopharynx have improved since prior exam. CT/Soft Tissue Neck WITH Contrast IMPRESSION: No focal mass or malignant adenopathy utilizing CT size criteria.. There has been significant improvement in previously noted soft tissue thickening of the posterior hypopharyngeal wall and fluid No new masses identified. Endoscopy would be helpful for further evaluation if indicated Electronically Signed: Jarrod Alegre MD at 20:45 EDT , Service support ,
[2019-11-16 19:22] LABS: Anisocytosis 1+; Platelet Estimate ADEQUATE (ADEQ); Red Cell Morphology N CHROM NORMAL (NORM C&C)
[2019-11-16 19:24] LABS: Absolute Lymphocyte Count 0.97 X10^3/uL (0.83-4.51)
--- NOTE | 2019-11-16 22:01 | HP.PCM_ITS ---
Problem List (1) SIRS (systemic inflammatory response syndrome) Status: Acute (2) Elevated lactic acid level Status: Acute (3) COPD (chronic obstructive pulmonary disease) Status: Chronic Qualifiers: COPD type: unspecified COPD Qualified Code(s): J44.9 - Chronic obstructive pulmonary disease, unspecified (4) Lung cancer Status: Chronic Qualifiers: Laterality: unspecified laterality Lung location: unspecified part of lung Qualified Code(s): C34.90 - Malignant neoplasm of unspecified part of unspecified bronchus or lung (5) Chest pain Status: Chronic Qualifiers: Chest pain type: unspecified Qualified Code(s): R07.9 - Chest pain, unspecified (6) Pharyngitis Status: Chronic Qualifiers: Pharyngitis/tonsillitis etiology: unspecified etiology Qualified Code(s): J02.9 - Acute pharyngitis, unspecified (7) Essential (primary) hypertension Status: Chronic (8) Nicotine dependence Status: Chronic Qualifiers: Substance use status: unspecified nicotine-induced disorder (9) HLD (hyperlipidemia) Status: Chronic Qualifiers: Hyperlipidemia type: unspecified Qualified Code(s): E78.5 - Hyperlipidemia, unspecified (10) Alcohol abuse Status: Chronic (11) Atherosclerosis of coronary artery of [place] heart with angina pectoris Status: Chronic Qualifiers: Coronary Disease-Associated Artery/Lesion type: unspecified vessel or lesion type Qualified Code(s): I25.119 - Atherosclerotic heart disease of [place] coronary artery with unspecified angina pectoris Comment: BMS-Prox and Distal RCA 12/23/16 (12) History of coronary artery stent placement Status: Chronic Comment: BMS-Prox and Distal RCA 12/23/16 (13) PAF (paroxysmal atrial fibrillation) Status: Chronic History of Present Illness Date of Admission: 11/16/19 Chief Complaint: Worsened dyspnea, fever The patient is a 54 y/o M w/ PMHx: CAD s/p PCI, PAF, Hx PE, HTN, HLD, Tobacco use, EtOH Abuse, Hx recent right subclavian and IJ thrombi with SVC compression, Chronic COPD, Anxiety and Depression, Known Lung CA s/p 1st chemotherapy 10/22/19 following w/ [facility] Oncologist Dr. Can w/ Known RUL and R paratracheal masses and adenopathy with 2nd chemotherapy session earlier this week with Palliative care consultation ongoing outpatient secondary to severe ongoing chest pain, EtOH Abuse, recent admission for uncontrolled R sided pleuritic pain and throat pain who now re-presents to the [facility] ED on 11/16/19 with worsening dyspnea above his baseline in addition to ongoing chest pain, similar to prior as well as complaint of ongoing throat pain. He denies any abdominal pain. In the ED patient with onset fever. He describes the pain as sharp and notes it is also midline in addition to right-sided, similar to prior but ongoing and rates it currently 8 out of 10 in severity, worse with activities and with inspiratory effort. Upon evaluation he notes his breathing is improved and does not seem into severe distress. Work-up in the ED included T 97.8, heart rate initially 141 with improvement to 110, BP 95/69, respiratory rate initially 28, 96% on room air, CBC with WBC 19.4, hemoglobin 11.1, platelet 237 with left shift and lymphopenia, unremarkable coags, CMP with sodium 134, BUN/creatinine 9/0.62, glucose 96, lactic acid 4.0, calcium 7.9, total bilirubin 0.6, AST/ALT 13/18, alk phos 116, troponin less than 0.015, urinalysis not marked appearing, urine culture pending per ED, blood culture x2 pending per ED, chest x-ray with no acute cardiopulmonary findings, EKG with sinus tachycardia with PVCs without acute evidence of ischemia, CTPA w/ no demonstrated pulmonary embolism or arterial dissection, interval decrease in the size of the right hilar mass likely reflecting a pathologically enlarged lymph node, interval decrease in the size of the right paratracheal lymph node, chronic COPD and atherosclerotic change, CT Soft tissue neck w/ no focal mass or mall malignant adenopathy, significant improvement in previously noted soft tissue thickening in the posterior hypopharyngeal wall and fluid, no new masses identified, EKG with sinus tachycardia with no acute evidence of ischemia. Past Medical History Past Medical History (Chronic Problems): Chronic Problems (Last Updated 04/10/18 @ 11:33 by Raine Huber) New onset atrial fibrillation (Chronic) PAF (paroxysmal atrial fibrillation) (Chronic) COPD (chronic obstructive pulmonary disease) (Chronic) Lung cancer (Chronic) Chest pain (Chronic) Pharyngitis (Chronic) Essential (primary) hypertension (Chronic) Nicotine dependence (Chronic) HLD (hyperlipidemia) (Chronic) Alcohol abuse (Chronic) NSTEMI (non-ST elevated myocardial infarction) (Chronic 04/07/18) Atherosclerosis of coronary artery of cab[place] heart with angina pectoris (Chronic) BMS-Prox and Distal RCA 12/23/16 History of coronary artery stent placement (Chronic 12/23/16) BMS-Prox and Distal RCA 12/23/16 Medical History: Medical History (Last Updated 04/10/18 @ 11:34 by Raine Huber) Essential (primary) hypertension (Chronic) I10 Nicotine dependence (Chronic) F17.200 HLD (hyperlipidemia) (Chronic) E78.5 Alcohol abuse (Chronic) F10.10 NSTEMI (non-ST elevated myocardial infarction) (Chronic) Onset Date: 04/07/18 I21.4 Atherosclerosis of coronary artery of [place] heart with angina pectoris (Chronic) I25.119 BMS-Prox and Distal RCA 12/23/16 Anxiety F41.9 Acute pulmonary embolism (Resolved) Onset Date: 04/08/18 I26.99 STEMI (ST elevation myocardial infarction) (Resolved) 12/23/16 STEMI (ST elevation myocardial infarction) I21.3 12/23/16 Noncompliance (Inactive) Z91.19 Allergies No Known Allergies Allergy (Verified 11/09/19 21:26) Home Medications: Ambulatory Orders Medication Instructions Recorded Aspirin [Aspirin, Baby] 162 mg PO DAILY@0800 10/03/17 Clonazepam [Klonopin] 0.5 mg PO Q8H PRN PRN 09/08/19 Escitalopram Oxalate [Lexapro] 10 mg PO DAILY 09/08/19 Folic Acid 1 mg PO DAILY 09/08/19 Morphine [Morphine IR] 15 mg PO Q4H PRN PRN 09/08/19 Metoprolol Tartrate [Lopressor 50 mg PO DAILY 10/28/19 (beta luis)] Albuterol IH (ProAir) [Proair Hfa] 1 - 2 puff INHALATION Q4H PRN PRN 10/30/19 #1 inhaler Apixaban [Eliquis] 5 mg PO BID #0 10/30/19 Gabapentin [Neurontin] 400 mg PO TIDCM #90 cap 10/30/19 Pantoprazole Sodium [Protonix] 40 mg PO BID #60 tab 10/30/19 Phenol/Sodium Phenolate 5 spray MM Q2H PRN PRN #1 bottle 10/30/19 [Chloraseptic (BKC)] Atorvastatin Calcium mg PO DAILY 11/09/19 traZODone [Desyrel] 50 mg PO QHS 11/09/19 Surgical History: Surgical History (Last Updated 04/10/18 @ 11:33 by Raine Huber) History of coronary artery stent placement (Chronic) Onset Date: 12/23/16 Z95.5 BMS-Prox and Distal RCA 12/23/16 History of left heart catheterization Onset Date: 04/07/18 Z98.890 12/23/16- PCI with BM stent to prox RCA & distal RCA; 01/12/17- patent BM stents; Surgical History: - - PCI x 2, T+A, L inguinal hernia repair, status post left neck surgery for abscess, status post left inguinal hernia repair Psychiatric History: Anxiety, Depression Lives: Alone Smoking Status: Current every day smoker - Patient notes ongoing cigarette tobacco usage of approximately 5 cigarettes daily, very insistent that he receive a 21 mg nicotine patch. Tobacco Use: Cigarettes Alcohol: Sober Drugs: None - *Family History Sibling Family History: Family History (Last Reviewed 03/27/19 @ 18:19 by Mary Menjivar NP, [employer]) Father Myocardial infarction, Onset Age: 36 Mother Myocardial infarction Cancer History Items: - - Patient notes a history of a sister who underwent a CABG early in life. Maternal Family History: Family History (Last Reviewed 03/27/19 @ 18:19 by Mary Menjivar NP, [employer]C) Father Myocardial infarction, Onset Age: 36 Mother Myocardial infarction Cancer History Items: Cancer - breast, Heart Disease - [place] Paternal Family History: Family History (Last Reviewed 03/27/19 @ 18:19 by Mary Menjivar NP, [employer]-C) Father Myocardial infarction, Onset Age: 36 Mother Myocardial infarction Cancer History Items: - - Patient notes a paternal family history of heart disease, passing secondary to fatal [place] at age 36. Review of Systems Constitutional: Reports: Anorexia, Malaise, Weakness, Weight Change, Fatigue. Denies: Chills, Fever HEENT: Reports: Sore Throat. Denies: Head Aches, Sinus Congestion, Sinus Drainage Cardiovascular: Reports: Chest Pain. Denies: Chest Pressure, Chest Tightness, Edema, Heaviness, Light Headedness, Orthopnea, Palpitations, Paroxysmal Noc. Dyspnea, Syncope Respiratory: Reports: Cough, Pleuritic Pain, Shortness of Breath, Shortness of breath at rest, Shortness of breath upon exertion. Denies: Sputum production, Wheezing Gastrointestinal: Denies: Abdominal Pain, Diarrhea, Nausea, Vomiting Genitourinary: Denies: Dysuria Musculoskeletal: Reports: Joint Pain, Muscle pain. Denies: Joint Tenderness Skin: Denies: Rash, Wounds Neurological: Denies: Numbness, Tingling, Focal weakness Psychiatric: Reports: Anxiety, Depression. Denies: Homicidal Ideations, Suicidal Ideations Hematologic/ Lymphatic: Reports: Anemia, Easy Bruising, Easy Bleeding VTE Information - Inpt Only VTE Present on Admission: No VTE Mechan Device Prophylaxis: SCD's VTE Pharm Prophylaxis ordered?: Yes Patient Problems: Active and Suspected Problems (Last Updated 04/10/18 @ 11:34 by Raien Huber) SIRS (systemic inflammatory response syndrome) (Acute) Elevated lactic acid level (Acute) Subjective: Seated upright in the bed, very irritable, no obvious evidence of distress but notes uncomfortable with ongoing pleuritic pain and sore throat. Objective: Physical Examination: General: awake, alert, oriented x 3 and cooperative, seated upright in the ED bed in no apparent distress but notes ongoing severe pain, extremely irritable. Skin: Flushed skin color, normal turgor, no icterus, no cyanosis. HEENT: AT/NC, EOMI, PERRLA, mildly dry MM, no carotid bruits or JVD noted. Lungs: Diminished breath sounds, greater bases, occasional soft end expiratory wheeze but minimal, appearance of moderate effort, no obvious distress. Heart: Tachycardic with regular rhythm; no gallop, rub audible. Abdomen: soft, NTTP, ND, mildly hyperactive BS, no HSM. Extremities: no cyanosis, clubbing, or edema. Neurological: patient awake, alert, oriented x 3; cognitive function appears baseline intact; pupils equally reactive to light and accomodation; cranial nerves II-XII grossly normal, moving all 4 extremities, no focal deficits, strength moderately globally decreased secondary to underlying comorbidities and acute complaints. Psychiatric: affect appears irritable, agitated, no acute evidence of depressive or anxiety feelings. - Physical Exam Vitals/I&O's: Vital Signs Temp Pulse Resp BP Pulse Ox 100.8 F H 133 H 20 H 124/86 H 94 11/16/19 21:33 11/16/19 21:33 11/16/19 21:33 11/16/19 21:33 11/16/19 21:33 Oxygen Flow Rate (L/min) 2 Oxygen Delivery Method Nasal Cannula Weight: 170 lb Body Mass Index (BMI) 21.2 Intake and Output for Last 24 Hours 11/14/19 11/15/19 11/16/19 23:59 23:59 23:59 Intake Total 1999 Balance 1999 Laboratory Results 11/16/19 18:10: WBC 19.4 H, RBC 3.80 L, Hgb 11.1 L, Hct 34.3 L, MCV 90.3, MCH 29.2, MCHC 32.4, RDW Std Deviation 56.9 H, RDW Coeff of Radha 18.3 H, Plt Count 237, MPV 10.8, Neut % (Auto) Not Reportable, Absolute Neuts (auto) 18.0 H, Absolute Lymphs (auto) 0.97, Total Counted 100, Neutrophils % (Manual) 78 H, Band Neutrophils % 15 H, Lymphocytes % (Manual) 5 L, Monocytes % (Manual) 2, Diff Path Review June, Platelet Estimate ADEQUATE, RBC Morphology N CHROM, Anisocytosis 1+ 11/16/19 18:10: PT 12.4, INR 1.0, APTT 27.0 11/16/19 18:10: Sodium 134 L, Potassium 3.7, Chloride 100, Carbon Dioxide 23.0, Anion Gap 11, BUN 9, Creatinine 0.62 L, Estim Creat Clear Calc 148.56, Est GFR (MDRD) Af Amer 174, Est GFR (MDRD) Non-Af 144, BUN/Creatinine Ratio 14.5, Glucose 96, Calcium 7.9 L, Total Bilirubin 0.60, AST 13 L, ALT 18, Alkaline Phosphatase 116, Troponin I < 0.015, Total Protein 6.3 L, Albumin 2.9 L, Globuli n 3.4, Albumin/Globulin Ratio 0.9 11/16/19 18:10: Lactic Acid 4.0 H* 11/16/19 19:00: Urine Color Yellow, Urine Clarity Clear, Urine pH 6.5, Ur Specific [place] 1.005, Urine Protein 15 H, Urine Glucose (UA) Normal, Urine Ketones Negative, Urine Occult Blood Negative, Urine Nitrite Negative, Urine Bilirubin Negative, Urine Urobilinogen Normal, Ur Leukocyte Esterase Negative, Urine RBC 0 SEEN, Urine WBC 0-5 SEEN, Ur Squamous Epith Cells 0 SEEN, Urine Bacteria 0 SEEN, Urine Mucus 0 SEEN 11/16/19 21:55: COVID-19 (LEONELA) Pending Current Medications Heparin Sodium (Beef Lung) () 50 units IV UD PRN PRN Reason: Port-a-Cath (VAD)Heparin Flush Sodium Chloride () 10 - 40 ml IV UD PRN PRN Reason: Port-a-Cath (VAD) Flush Sodium Chloride (0.9% Nacl (Sterile) Posiflush) 10 - 40 ml IV UD PRN PRN Reason: Port access or dressing change Assessment/Plan All Active Problems (Last Updated 04/10/18 @ 11:34 by Raine Huber) SIRS (systemic inflammatory response syndrome) (Acute) Elevated lactic acid level (Acute) Acute pulmonary embolism (Resolved 04/08/18) Chest pain (Resolved) Intermittent palpitations (Resolved) STEMI (ST elevation myocardial infarction) (Resolved) The patient is a 54 y/o M w/ PMHx: CAD s/p PCI, PAF, Hx PE, HTN, HLD, Tobacco use, EtOH Abuse, Hx recent right subclavian and IJ thrombi with SVC compression, Chronic COPD, Anxiety and Depression, Known Lung CA s/p 1st chemotherapy 10/22/19 following w/ [facility] Oncologist Dr. Can w/ Known RUL and R paratracheal masses and adenopathy with 2nd chemotherapy session earlier this week with Palliative care consultation ongoing outpatient secondary to severe ongoing chest pain, EtOH Abuse, recent admission for uncontrolled R sided pleuritic pain and throat pain who now re-presents to the [facility] ED on 11/16/19 with worsening dyspnea above his baseline in addition to ongoing chest pain, similar to prior as well as complaint of ongoing throat pain. 1. SIRS with Lactic Acidosis, Unclear Etiology (Febrile, Increased RR, Increased HR, WBC 19.4, elevated LA): COVID testing pending. Will admit patient to the ICU, maintain on cardiac monitoring, continue IVF, admission CBC w/ WBC 19.4 w/ L shift, Lactic acid 4.0 with planned continued trending, maintain on IV abx regimen w/ vanc and zosyn pending cultures given unclear etiology, Bld Cx x 2 obtained in the ED, UA not marked, UCx pending per ED, ICU physician consulted, COVID testing pending. 2. Acute on Chronic Right-sided pleuritic chest discomfort, secondary to underlying Lung cancer, musculoskeletal pain: Will continue Chloraseptic spray, BMX, overlapping fentanyl [employer] C[employer]OONIST given notable usage while in the ED, neurontin. Plan to transition to his oral chronic long-acting and short acting narcotic therapy once able to more readily take oral regimen, but difficult as frequent declining secondary to throat pain. 3. Chronic Pharyngitis, suspected secondary to recent Thrush and Radiation: CT Soft tissue neck w/ no focal mass or mall malignant adenopathy, significant improvement in previously noted soft tissue thickening in the posterior hypopharyngeal wall and fluid, no new masses identified, will continue BMX liquid, Chloraseptic spray, patient chronic pain regimen with overlapping IV, high dose protonix, recent completion regimen nystatin S/S. May need to consider EGD. 4. Chronic COPD: Will maintain on oxygen with wean as tolerated to room air, continue ATC duonebs, PRN albuterol, HOB, IS parameters. 5. Chronic anemia w/ known lung cancer on chemotherapy: Admission CBC with Hgb 11.1, stable complared to prior, on active ongoing chemotherapy, will trend CBC. 6. CAD: Status post prior PCI with BMS to the proximal and distal RCA in 2017, continued on aspirin, statin, Plavix, metoprolol regimen, patient is not on KLAUS inhibitor or ARB. 7. Chronic diastolic CHF: We will closely monitor with judicious hydration, continue aspirin, statin, metoprolol, not on any diuretic or KLAUS inhibitor/ARB. 8. Hypertension: Continue home regimen including metoprolol, PRN hydralazine. 9. Hyperlipidemia: Continue home statin regimen. 10. Anxiety and depression, Uncontrolled with Insomnia: We will continue patient home Klonopin, Lexapro regimen. 11. Tobacco Abuse: Encouraged cessation, inpatient consultation per RT, NR if desired. 12. History of alcohol abuse: Patient has been sober, continue to closely monitor, electrolyte supplementation as needed. 13. DVT prophylaxis: SCDs, Eliquis. 14. CODE status: Discussed CODE status at length including difference between FULL code, DNR-CCA and DNR-CC status. Following discussions about the differences in these status, requested continued aggressive measures, Full Code. Noted significant co-morbidities would make likelihood of quality of life outcome lower. Advanced Care Planning Face to Face Time: 16 minutes. Inpatient E&M: 65560 Init Hosp L3 Procedures: 28848 Advncd Care Plan 30 Min
[2019-11-16 22:18] LABS: Reflex Lactate? Y
--- NOTE | 2019-11-16 23:37 | NURSING ---
Telephone report received from DILIP Longoria in ED. Requested not to send pt to ICU at this time; will notify ED when ready for pt.
[2019-11-16 23:56] LABS: Lactic Acid 1.3 mmol/L (0.4-1.9)
[2019-11-17] VITALS (20 sets, daily range): BP systolic 104–133; BP diastolic 56–93; PULSE 87–113; RESP 14–23; TEMP 36.1–37.1; O2SAT 89–97; BMI 20.9; BMI 21.0
[2019-11-17] MEDS: 0.9% Saline Lock 10 ML Syringe IV ×5 (00:32→16:01)
[2019-11-17] MEDS: fentaNYL 100 MCG/2 ML Ampul 50 MCG IV (00:32)
--- NOTE | 2019-11-17 01:10 | NURSING ---
This RN attempted to complete home medication list at this time. When running through medications, pt states, whatever that thing says. Home med list not completed at this time.
--- NOTE | 2019-11-17 01:26 | NURSING ---
Pt very agitated at this time. States he needs to have a BM. This RN set up BSC hover over toilet. Pt states he cannot use it it because stool will splatter on him and he doesn't have anyone to bring him clean clothes. This RN states this is the only way the room is set-up for him to go. Pt states he will use the bathroom in the hallway. This RN explains that pt cannot go in the hallway d/t being in isolation. Pt remains agitated and uses setup that is provided.
[2019-11-17 01:42] LABS: Phosphorus 2.7 mg/dL (2.5-4.9)
[2019-11-17] MEDS: 0.9% Normal Saline 1,000 ML 125 ML IV ×3 (02:31→20:08)
[2019-11-17] MEDS: Ketorolac 30 MG/ML Syringe IV ×2 (02:32→21:13)
--- NOTE | 2019-11-17 03:34 | NURSING ---
Assessment incomplete at this time as pt is agitated, belligerent, and resistive to care. Multiple attempts made to reason with patient and explain interventions taken by this RN. Pt requesting sleep.
[2019-11-17 04:04] LABS: CRP 7.37 mg/L (0.0-3.0); Ferritin 879 ng/mL (26-388); LDH 244 U/L (87-241); Magnesium 1.4 mg/dL (1.6-2.6)
--- NOTE | 2019-11-17 05:43 | PCM.RX.CS ---
Consult Pharmacy has been consulted to manage selected antiobiotic: Vancomycin Type of Consult: New start Labs: Sodium 134 mmol/L (136-145) L 11/16/19 18:10 Potassium 3.7 mmol/L (3.5-5.1) 11/16/19 18:10 Chloride 100 mmol/L (98-107) 11/16/19 18:10 Carbon Dioxide 23.0 mmol/L (21.0-32.0) 11/16/19 18:10 Anion Gap 11 (5-15) 11/16/19 18:10 BUN 9 mg/dL (7-18) 11/16/19 18:10 Creatinine 0.62 mg/dL (0.70-1.30) L 11/16/19 18:10 Est GFR (MDRD) Af Amer 174 mL/min (>60) 11/16/19 18:10 Est GFR (MDRD) Non-Af 144 mL/min (>60) 11/16/19 18:10 BUN/Creatinine Ratio 14.5 RATIO (-20) 11/16/19 18:10 Glucose 96 mg/dL (74-106) 11/16/19 18:10 Microbiology: Microbiology 11/16/19 19:00 Urine, Clean Catch Streptococcus pneumoniae Antigen (M - Final 11/16/19 19:00 Urine, Clean Catch Legionella Antigen - Final 11/16/19 21:55 Mucosa - Nasopharyngeal Respiratory Panel (PCR) - Final Goal Trough: 15-20 mcg/mL Pharmacy Plan for Drug Dosing: Pharmacy Service will continue to monitor and adjust dosing as required. Medications Vancomycin HCl (Vancomycin) 1,000 mg in 200 mls @ 200 mls/hr IV Q8H LIONEL Discontinued Medications Vancomycin HCl 2,000 mg/ (Sodium Chloride) 540 mls @ 250 mls/hr IV X1 ONE Stop: 11/17/19 03:39 Last Admin: 11/17/19 04:56 Dose: Infused Documented by: Follow-Up Labs: Trough Vancomycin Labs to be done on [date and time ordered]: 11/17 @ 2342
--- NOTE | 2019-11-17 05:46 | CON.PCM_ITS ---
Reason for Consult Date of Consultation: 11/17/19 Reason for Consultation: Sirs, elevated lactate, unclear source History of Present Illness: The patient is a 54-year-old male, with a history as outlined below, who presented to the emergency department on November 15 with complaints of shortness of breath and chest pain. The patient has an apparent history of coronary artery disease status post PCI, questionable COPD of unknown severity, chronic tobacco dependency, chronic pain syndrome, anxiety/depression, and lung cancer which is currently being treated at [facility]. On presentation to the emergency department, the patient was noted to be afebrile but was tachycardic and tachypneic. Laboratory evaluation revealed an elevated white blood cell count to 20,000. 15% bands were noted. Coagulation profile was within normal limits. Chemistry profile was largely unrevealing. Lactate was elevated at 4.0. Magnesium was low at 1.4. Troponin was negative. Urine analysis was unremarkable. Coronavirus PCR was negative. CTA chest showed no evidence for PE. Bilateral emphysematous changes were noted along with distal right paratracheal and right hilar lymphadenopathy. The patient received supplemental IV fluid hydration and was started on broad-spectrum ant imicrobial therapy. He was then admitted to the medical intensive care unit for further management. Overnight, the patient has complained of a great deal of pain and anxiety. Although he is prescribed p.o. morphine and Klonopin, he has repeatedly requested that IV opiates and anxiolytics be ordered. At one point overnight, the patient was placed on a [employer] pump. The patient this morning reports the continued presence of chest discomfort and is threatening to leave the hospital AGAINST MEDICAL ADVICE. Past Medical History Past Medical History (Chronic Problems): Chronic Problems (Last Updated 04/10/18 @ 11:33 by Raine Huber) New onset atrial fibrillation (Chronic) PAF (paroxysmal atrial fibrillation) (Chronic) COPD (chronic obstructive pulmonary disease) (Chronic) Lung cancer (Chronic) Chest pain (Chronic) Pharyngitis (Chronic) Essential (primary) hypertension (Chronic) Nicotine dependence (Chronic) HLD (hyperlipidemia) (Chronic) Alcohol abuse (Chronic) NSTEMI (non-ST elevated myocardial infarction) (Chronic 04/07/18) Atherosclerosis of coronary artery of koi heart with angina pectoris (Chronic) BMS-Prox and Distal RCA 12/23/16 History of coronary artery stent placement (Chronic 12/23/16) BMS-Prox and Distal RCA 12/23/16 Medical History: Medical History (Last Updated 04/10/18 @ 11:34 by Raine Huber) Essential (primary) hypertension (Chronic) I10 Nicotine dependence (Chronic) F17.200 HLD (hyperlipidemia) (Chronic) E78.5 Alcohol abuse (Chronic) F10.10 NSTEMI (non-ST elevated myocardial infarction) (Chronic) Onset Date: 04/07/18 I21.4 Atherosclerosis of coronary artery of koi heart with angina pectoris (Chronic) I25.119 BMS-Prox and Distal RCA 12/23/16 Anxiety F41.9 Acute pulmonary embolism (Resolved) Onset Date: 04/08/18 I26.99 STEMI (ST elevation myocardial infarction) (Resolved) 12/23/16 STEMI (ST elevation myocardial infarction) I21.3 12/23/16 Noncompliance (Inactive) Z91.19 Allergies No Known Allergies Allergy (Verified 11/09/19 21:26) Home Medications: Ambulatory Orders Medication Instructions Recorded Aspirin [Aspirin, Baby] 162 mg PO DAILY@0800 10/03/17 Clonazepam [Klonopin] 0.5 mg PO Q8H PRN PRN 09/08/19 Escitalopram Oxalate [Lexapro] 10 mg PO DAILY 09/08/19 Folic Acid 1 mg PO DAILY 09/08/19 Morphine [Morphine IR] 15 mg PO Q4H PRN PRN 09/08/19 Metoprolol Tartrate [Lopressor 50 mg PO DAILY 10/28/19 (beta levon)] Albuterol IH (ProAir) [Proair Hfa] 1 - 2 puff INHALATION Q4H PRN PRN 10/30/19 #1 inhaler Apixaban [Eliquis] 5 mg PO BID #0 10/30/19 Gabapentin [Neurontin] 400 mg PO TIDCM #90 cap 10/30/19 Pantoprazole Sodium [Protonix] 40 mg PO BID #60 tab 10/30/19 Phenol/Sodium Phenolate 5 spray MM Q2H PRN PRN #1 bottle 10/30/19 [Chloraseptic (BKC)] Atorvastatin Calcium mg PO DAILY 11/09/19 traZODone [Desyrel] 50 mg PO QHS 11/09/19 Surgical History: Surgical History (Last Updated 04/10/18 @ 11:33 by Raine Huber) History of coronary artery stent placement (Chronic) Onset Date: 12/23/16 Z95.5 BMS-Prox and Distal RCA 12/23/16 History of left heart catheterization Onset Date: 04/07/18 Z98.890 12/23/16- PCI with BM stent to prox RCA & distal RCA; 01/12/17- patent BM stents; Surgical History: - - PCI x 2, T+A, L inguinal hernia repair, status post left neck surgery for abscess, status post left inguinal hernia repair Psychiatric History: Anxiety, Depression Lives: Alone Smoking Status: Current every day smoker Tobacco Use: Cigarettes Alcohol: Sober Drugs: None - *Family History Sibling Family History: Family History (Last Reviewed 03/27/19 @ 18:19 by Mary Menjivar NP, EXPLOSIVE [employer]NCE MANAGER-C) Father Myocardial infarction, Onset Age: 36 Mother Myocardial infarction Cancer History Items: - - Patient notes a history of a sister who underwent a CABG early in life. Maternal Family History: Family History (Last Reviewed 03/27/19 @ 18:19 by Mary Menjivar NP, EXPLOSIVE ORDNANCE MANAGER-C) Father Myocardial infarction, Onset Age: 36 Mother Myocardial infarction Cancer History Items: Cancer - breast, Heart Disease - [place] Paternal Family History: Family History (Last Reviewed 03/27/19 @ 18:19 by Mary Menjivar NP, EXPLOSIVE ORDNANCE MANAGER-C) Father Myocardial infarction, Onset Age: 36 Mother Myocardial infarction Cancer History Items: - - Patient notes a paternal family history of heart disease, passing secondary to fatal [place] at age 36. Review of Systems Constitutional: Denies: Chills, Fever Eyes: Denies: Blurred vision, Double vision HEENT: Reports: Difficulty Swallowing Cardiovascular: Reports: Chest Pain Respiratory: Reports: Cough, Shortness of Breath Gastrointestinal: Denies: Abdominal Pain, Nausea, Vomiting Genitourinary: Denies: Dysuria Musculoskeletal: Denies: Back Pain Skin: Denies: Rash, Wounds Neurological: Denies: Numbness, Tingling, Focal weakness Psychiatric: Reports: Anxiety, Depression Hematologic/ Lymphatic: Reports: Anemia Patient Problems: Active and Suspected Problems (Last Updated 04/10/18 @ 11:34 by Raine Huber) SIRS (systemic inflammatory response syndrome) (Acute) Elevated lactic acid level (Acute) Objective: The patient's most recent lab work, culture data and imaging studies have all been personally reviewed. Coronavirus PCR was negative. Respiratory viral panel was negative. Strep and urine Legionella antigens were negative. Blood and urine cultures are pending. - Physical Exam Vitals/I&O's: Vital Signs Temp Pulse Resp BP Pulse Ox 97.8 F 102 H 22 H 128/81 H 93 11/17/19 01:06 11/17/19 05:00 11/17/19 05:00 11/17/19 05:00 11/17/19 05:00 Oxygen Flow Rate (L/min) 2 Oxygen Delivery Method Room Air Weight: 167 lb 15.876 oz Body Mass Index (BMI) 20.9 Intake and Output for Last 24 Hours 11/15/19 11/16/19 11/17/19 23:59 23:59 23:59 Intake Total 2500 / 2500 595 / 595 Output Total 475 / 475 Balance 2500 / 2500 120 / 120 General: Alert, Cooperative, - - Patient is quite irritated this morning. HEENT: Atraumatic, Normocephalic Oral: No Gingival or Mucosal Lesions/ Ulcerations Neck: Supple, No Nodes, Trachea Midline Lungs: No rhonchi, No wheeze, No rales, Diminished, - - Speaking in complete sentences. No accessory muscle use. Cardiovascular: Normal S1, Normal S2, Tachycardic Abdomen: Bowel Sounds Present, Soft, Non Tender Extremities: No clubbing, No cyanosis, No edema Skin: No breakdown Musculoskeletal: No Muscle Wasting Neurological: Cranial nerves II-XII grossly intact, Neuro grossly intact Psych/Mental Status: Agitated, Anxious Labs (Last 48 Hours) 11/16/19 11/16/19 11/16/19 18:10 18:10 18:10 WBC 19.4 H RBC 3.80 L Hgb 11.1 L Hct 34.3 L MCV 90.3 MCH 29.2 MCHC 32.4 RDW Std Deviation 56.9 H RDW Coeff of Radha 18.3 H Plt Count 237 MPV 10.8 Neut % (Auto) Not Reportable Absolute Neuts (auto) 18.0 H Absolute Lymphs (auto) 0.97 Total Counted 100 Neutrophils % (Manual) 78 H Band Neutrophils % 15 H Lymphocytes % (Manual) 5 L Monocytes % (Manual) 2 Diff Path Review May foll Platelet Estimate ADEQUATE RBC Morphology N CHROM Anisocytosis 1+ PT 12.4 INR 1.0 APTT 27.0 Sodium 134 L Potassium 3.7 Chloride 100 Carbon Dioxide 23.0 Anion Gap 11 BUN 9 Creatinine 0.62 L Estim Creat Clear Calc 148.56 Est GFR (MDRD) Af Amer 174 Est GFR (MDRD) Non-Af 144 BUN/Creatinine Ratio 14.5 Glucose 96 Lactic Acid Calcium 7.9 L Phosphorus Magnesium Ferritin Total Bilirubin 0.60 AST 13 L ALT 18 Alkaline Phosphatase 116 Lactate Dehydrogenase Troponin I < 0.015 C-React Prot Ext Range Total Protein 6.3 L Albumin 2.9 L Globulin 3.4 Albumin/Globulin Ratio 0.9 Urine Color Urine Clarity Urine pH Ur Specific [place] Urine Protein Urine Glucose (UA) Urine Ketones Urine Occult Blood Urine Nitrite Urine Bilirubin Urine Urobilinogen Ur Leukocyte Esterase Urine RBC Urine WBC Ur Squamous Epith Cells Urine Bacteria Urine Mucus COVID- (LEONELA) 11/16/19 11/16/19 11/16/19 18:10 18:10 18:10 WBC RBC Hgb Hct MCV MCH MCHC RDW Std Deviation RDW Coeff of Radha Plt Count MPV Neut % (Auto) Absolute Neuts (auto) Absolute Lymphs (auto) Total Counted Neutrophils % (Manual) Band Neutrophils % Lymphocytes % (Manual) Monocytes % (Manual) Diff Path Review Platelet Estimate RBC Morphology Anisocytosis PT INR APTT Sodium Potassium Chloride Carbon Dioxide Anion Gap BUN Creatinine Estim Creat Clear Calc Est GFR (MDRD) Af Amer Est GFR (MDRD) Non-Af BUN/Creatinine Ratio Glucose Lactic Acid 4.0 H* Calcium Phosphorus 2.7 Magnesium 1.4 L Ferritin 879 H Total Bilirubin AST ALT Alkaline Phosphatase Lactate Dehydrogenase 244 H Troponin I C-React Prot Ext Range 7.37 H Total Protein Albumin Globulin Albumin/Globulin Ratio Urine Color Urine Clarity Urine pH Ur Specific [place] Urine Protein Urine Glucose (UA) Urine Ketones Urine Occult Blood Urine Nitrite Urine Bilirubin Urine Urobilinogen Ur Leukocyte Esterase Urine RBC Urine WBC Ur Squamous Epith Cells Urine Bacteria Urine Mucus COVID-19 (LEONELA) 11/16/19 11/16/19 11/16/19 19:00 21:55 23:25 WBC RBC Hgb Hct MCV MCH MCHC RDW Std Deviation RDW Coeff of Radha Plt Count MPV Neut % (Auto) Absolute Neuts (auto) Absolute Lymphs (auto) Total Counted Neutrophils % (Manual) Band Neutrophils % Lymphocytes % (Manual) Monocytes % (Manual) Diff Path Review Platelet Estimate RBC Morphology Anisocytosis PT INR APTT Sodium Potassium Chloride Carbon Dioxide Anion Gap BUN Creatinine Estim Creat Clear Calc Est GFR (MDRD) Af Amer Est GFR (MDRD) Non-Af BUN/Creatinine Ratio Glucose Lactic Acid 1.3 Calcium Phosphorus Magnesium Ferritin Total Bilirubin AST ALT Alkaline Phosphatase Lactate Dehydrogenase Troponin I C-React Prot Ext Range Total Protein Albumin Globulin Albumin/Globulin Ratio Urine Color Yellow Urine Clarity Clear Urine pH 6.5 Ur Specific [place] 1.005 Urine Protein 15 H Urine Glucose (UA) Normal Urine Ketones Negative Urine Occult Blood Negative Urine Nitrite Negative Urine Bilirubin Negative Urine Urobilinogen Normal Ur Leukocyte Esterase Negative Urine RBC 0 SEEN Urine WBC 0-5 SEEN Ur Squamous Epith Cells 0 SEEN Urine Bacteria 0 SEEN Urine Mucus 0 SEEN COVID-19 (LEONELA) Not Detected Microbiology 11/16/19 19:00 Urine, Clean Catch Streptococcus pneumoniae Antigen (M - Final 11/16/19 19:00 Urine, Clean Catch Legionella Antigen - Final 11/16/19 21:55 Mucosa - Nasopharyngeal Respiratory Panel (PCR) - Final Clinical Impression(s) from Imaging Studies Chest X-Ray 11/16/19 18:13 IMPRESSION: No acute cardiopulmonary process. Electronically Signed: Luna Clement MD at 18:30 EDT Tel , Service support , Chest CTA 11/16/19 19:19 IMPRESSION: No demonstrated pulmonary embolism or arterial dissection. Interval decrease in size of right hilar mass, likely reflecting a pathologically enlarged lymph node. Interval decrease in size of right paratracheal lymph node. Atherosclerosis. Emphysema. Electronically Signed: Luna Clement MD at 20:29 EDT Tel , Service support , Soft Tissue Neck CT 11/16/19 19:20 IMPRESSION: No focal mass or malignant adenopathy utilizing CT size criteria.. There has been significant improvement in previously noted soft tissue thickening of the posterior hypopharyngeal wall and fluid No new masses identified. Endoscopy would be helpful for further evaluation if indicated Electronically Signed: Jarrod Alegre MD at 20:45 EDT , Service support , Current Medications Acetaminophen (Tylenol) 650 mg RECTAL Q4H PRN PRN PRN Reason: fever, pain 1-10/10 Acetaminophen (Tylenol) 650 mg PO Q4H PRN PRN PRN Reason: fever, pain 1-10/10 Al Hydroxide/Mg Hydroxide (Mylanta Ii) 30 ml PO Q6H PRN PRN PRN Reason: Gastric Burning Albuterol Sulfate (Ventolin Aerosols) 2.5 mg INHALATION Q2H PRN PRN PRN Reason: Dyspnea, wheezing Albuterol/Ipratropium (Duoneb) 3 ml INHALATION Q4HWA.RT [facility] Apixaban (Eliquis) 5 mg PO BID [facility] Aspirin (Aspirin, Baby) 81 mg PO DAILY@0800 [facility] Atorvastatin Calcium (Lipitor) 80 mg PO QHS [facility] Bisacodyl (Dulcolax) 10 mg RECTAL .X1 PRN PRN PRN Reason: See label comments Bisacodyl (Dulcolax) 10 mg PO .X1 PRN PRN PRN Reason: See label comments Clonazepam (Klonopin) 0.5 mg PO Q8H PRN PRN PRN Reason: ANXIETY Diphenhydramine HCl (Benadryl) 12.5 - 25 mg IV Q6H PRN PRN PRN Reason: ITCHING Diphenhydramine HCl (Benadryl) 12.5 - 25 mg PO Q6H PRN PRN PRN Reason: Pruritis Escitalopram Oxalate (Lexapro) 10 mg PO DAILY [facility] Fentanyl () 1,000 mcg IV UD [facility]; Protocol Last Admin: 11/17/19 04:15 Dose: 1,000 mcg Documented by: Folic Acid (Folic Acid) 1 mg PO DAILYCM [facility] Gabapentin (Neurontin) 400 mg PO TIDCM [facility] Guaifenesin (Robitussin) 10 ml PO Q4H PRN PRN PRN Reason: COUGH Heparin Sodium (Beef Lung) () 50 units IV UD PRN PRN Reason: Port-a-Cath (VAD)Heparin Flush Sodium Chloride () 250 mls @ 15 mls/hr IV .[id number] PRN PRN Reason: Saline Flush Sodium Chloride () 250 mls @ 15 mls/hr IV .[id number] PRN PRN Reason: Additional IVPB Infusion Sodium Chloride () 1,000 mls @ 125 mls/hr IV .Q8H [facility] Last Infusion: 11/17/19 04:56 Dose: 125 mls/hr Documented by: Piperacillin Sod/Tazobactam (Sod 3.375 gm/ Sodium Chloride) 50 mls @ 12.5 mls/hr IV Q8 [facility] Vancomycin IV Pharmacy to Dose (1 ea/ Sodium Chloride) 500 mls @ 250 mls/hr IV X1 PRN; Protocol PRN Reason: Rx to Dose Vancomycin HCl (Vancomycin) 1,000 mg in 200 mls @ 200 mls/hr IV Q8H [facility] Ketorolac Tromethamine (Toradol (Bkc)) 30 mg IV Q8 [facility] Stop: 11/18/19 06:01 Last Admin: 11/17/19 05:14 Dose: Not Given Documented by: Lorazepam (Ativan) 0.5 mg IV Q4H PRN PRN PRN Reason: severe anxiety, agitation Metoprolol Tartrate (Lopressor (Beta Levon)) 50 mg PO DAILY [facility] Morphine Sulfate (Roxanol (Ir Oral Solution)) 15 mg PO Q4H PRN PRN PRN Reason: Pain Score 6-10 Naloxone HCl (Narcan) 0.02 mg IV Q1M PRN PRN Reason: RR <10 and pt unresponsive Nicotine (Nicoderm Cq (Pbkc)) 21 mg TRANSDERM. DAILY [facility] Nutritional Formula (Lactose Free) (Ensure Clear) 120 ml PO 4X/DAY [facility] Ondansetron HCl (Zofran) 4 mg IV Q8H PRN PRN PRN Reason: NAUSEA/VOMITING Pantoprazole Sodium (Protonix) 40 mg PO BID [facility] Phenol/Menthol (Chloraseptic (Bkc)) 5 spray MM Q2H PRN PRN PRN Reason: SORE THROAT Prochlorperazine Edisylate (Compazine Iv) 5 mg IV Q4H PRN PRN PRN Reason: Breakthrough Nausea/Vomiting Senna/Docusate Sodium (Senokot-S, Suzi-Colace) 2 tablet PO QHS [facility] Sodium Chloride () 10 - 40 ml IV UD PRN PRN Reason: Port-a-Cath (VAD) Flush Last Admin: 11/17/19 02:49 Dose: 30 ml Documented by: Sodium Chloride (0.9% Nacl (Sterile) Posiflush) 10 - 40 ml IV UD PRN PRN Reason: Port access or dressing change Throat Lozenges (Cepacol Sore Throat Lozenge) 1 lozenge MUCOUS MEM Q2H PRN PRN PRN Reason: SORE THROAT Trazodone HCl (Desyrel) 50 mg PO QHS [facility] Assessment/Plan Active and Suspected Problems (Last Updated 04/10/18 @ 11:34 by Raine Huber) SIRS (systemic inflammatory response syndrome) (Acute) Elevated lactic acid level (Acute) RECOMMENDATIONS: 1. Continue empiric antimicrobials, while awaiting infectious work-up. Plan to discontinue antimicrobials tomorrow, if cultures remain negative. 2. Resume outpatient, baseline pain and anxiety regimen. 3. Continue scheduled bronchodilator therapy. 4. Continue Eliquis as ordered. 5. The patient is hemodynamically stable on room air and can be transferred out of the medical intensive care unit. 6. Given the patient's lack of further ICU or pulmonary needs, will sign off. Please call with any additional questions. IMPRESSIONS: 1. Chest pain Unclear etiology, although suspect related to underlying lung cancer. Continue current supportive measures with consideration for cardiology consultation, if clinically indicated. 2. Septic shock by lactate criteria Although the patient initially presented with Sirs criteria and an elevated lactate, no source of infection has ever been identified. The patient remains afebrile and hemodynamically stable. He is maintaining appropriate oxygen saturations on room air. Recommend continuing antibiotics for an additional 24 hours, and if cultures remain negative, plan to discontinue tomorrow. 3. Questionable COPD of unknown severity/chronic tobacco dependency The patient has a self-reported history of COPD of unknown severity along with an extensive tobacco abuse history. I personally spent 4 minutes discussing the deleterious effects of continued tobacco use with the patient, including modalities which could be utilized to achieve a smoke-free lifestyle. Nicotine replacement therapy can be utilized while the patient is admitted to the hospital. 4. History of lung cancer The patient is currently under the management of oncology at [facility]. Recommend continued outpatient follow-up. 5. Hypomagnesemia Electrolyte repletion as ordered. Recheck levels in the morning. 6. History of coronary artery disease status post PCI/hypertension/hyperlipidemia/chronic pain syndrome/anxiety/depression Complicates care, management, recovery and prognosis. Recommend continuing outpatient pain and anxiety regimen. Discontinue [employer] pump. This note was generated with [employer] dictation software. It may contain incorrect words, spelling, and punctuation that were not noted in checking the note before signing. Inpatient E&M: 16587 Init Hosp L3 - Behavior Interventions Behavior Intervention: 70622 Smoking Cessation 3-10 min
[2019-11-17] MEDS: morphine (oral solution) 10MG/0.5ML Syringe 15 MG PO ×5 (06:43→21:19)
[2019-11-17 06:56] LABS: Hematocrit 32.7 % (40-54); Hemoglobin 10.5 g/dL (13.0-16.5); Mean Corp Hgb Conc 32.1 g/dL (32-36); Mean Corpuscular Hgb 29.3 pg (27.0-32.0); Mean Corpuscular Volume 91.3 fL (80-94); Mean Platelet Vol. 10.6 fl (6.2-12.0); POSITIVE COUNT YES; POSITIVE DIFFERENTIAL YES; POSITIVE MORPHOLOGY YES; Platelet Count 202 K/mm3 (150-450); RBC Distribution Width CV 18.2 % (11.6-14.6); RBC Distribution Width SD 56.9 fl (35.1-43.9); Red Blood Count 3.58 M/mm3 (4.6-6.2); White Blood Count 8.3 K/mm3 (4.4-11.0)
[2019-11-17 06:57] LABS: Differential Indicated MANUAL DIFF
[2019-11-17 07:13] LABS: ALB/GLOB Ratio 0.9 RATIO (0.9-2.4); AST(SGOT) 13 U/L (15-37); Alanine Aminotransfer ALT/SGPT 16 U/L (16-61); Albumin, Serum 2.6 g/dL (3.2-5.0); Alkaline Phosphatase 102 U/L (45-117); Anion Gap 4 (5-15); BUN 9 mg/dL (7-18); BUN/Creat Ratio 14.9 RATIO (10-20); Calcium,Total 7.7 mg/dL (8.5-10.1); Chloride 108 mmol/L (98-107); EST Glomerular Filtration Rate 148 mL/min (>60); Est Glom Filt Rate - Afr Amer 179 mL/min (>60); Estimated Creatinine Clearance 151.69 ml/min; Globulin 2.9 g/dL (2.2-4.2); Glucose 81 mg/dL (74-106); Potassium 3.8 mmol/L (3.5-5.1); Protein, Total 5.5 g/dL (6.4-8.2); Sodium Level 141 mmol/L (136-145)
--- NOTE | 2019-11-17 07:51 | PCM.PN.HOSP ---
Patient Problems: Active and Suspected Problems (Last Updated 04/10/18 @ 11:34 by Raine Huber) SIRS (systemic inflammatory response syndrome) (Acute) Elevated lactic acid level (Acute) Subjective: Patient seen and examined. He was admitted with a complaint of shortness of breath as well as chest pain. Patient has a history of lung cancer and had his second session of chemotherapy last week at [facility]. He was admitted with the above mentioned symptoms. He also had associated throat pain. In the ED, he was noted to be febrile and heart rate was 141 but improved to 110, blood pressure was 95/69 he was breathing at 28 breaths/min. WBC was elevated at 19.4. CT of the chest showed no evidence of PE or arterial dissection and EKG showed sinus tachycardia. Chest x-ray showed no acute cardiopulmonary findings. CT of the soft tissue neck was also negative for any focal mass or malignant adenopathy. He has been managed for sepsis with no clear focus of infection. He is on IV vancomycin and Zosyn. Patient complains of feeling weak and tired today. Having the same breath, he asked if he could be discharged. Chest pain is getting better but he denies any fever or chills, shortness of breath, nausea vomiting or diarrhea. Review of symptoms otherwise negative. Tachycardia has improved though he still breathing at 20/min. He also on room air. wbc was down to 8.3. Vitals/I&O's: Vital Signs Temp Pulse Resp BP Pulse Ox 97.8 F 106 H 21 H 113/56 L 93 11/17/19 01:06 11/17/19 07:00 11/17/19 07:00 11/17/19 07:00 11/17/19 07:00 Oxygen Flow Rate (L/min) 2 Oxygen Delivery Method Room Air Weight: 167 lb 15.876 oz Body Mass Index (BMI) 20.9 Intake and Output for Last 24 Hours 11/15/19 11/16/19 11/17/19 23:59 23:59 23:59 Intake Total 2500 / 2500 595.75 / 595.75 Output Total 475 / 475 Balance 2500 / 2500 120.75 / 120.75 General: Alert, Oriented x3, Cooperative, No apparent distress HEENT: Atraumatic, PERRLA, EOMI, Normocephalic Oral: Dry Mucosa Neck: Supple, No JVD, Negative Carotid Bruits Lungs: - - decreased breath sounds bibasally, no wheezes or crackles. Cardiovascular: Regular rate, Regular Rhythm, Normal S1, Normal S2, No murmurs Abdomen: Bowel Sounds Present, Soft, Non Tender, Non-Distended, No Hepato-splenomegaly Extremities: No clubbing, No cyanosis, No edema, Capillary Refill Less than 3 Seconds Skin: No rashes, No breakdown Musculoskeletal: No Tenderness to Palpation of Joints or Extremities Lymphatic: No Cervical, Supraclavicular, or Inguinal Adenopathy Neurological: Cranial nerves II-XII grossly intact, Neuro grossly intact, Motor Exam 5/5 strength throughout Psych/Mental Status: Normal Affect, Appropriate, Alert and oriented to time, place, person, mood and affect Microbiology Past 72 Hours 11/16/19 19:00 Urine, Clean Catch Streptococcus pneumoniae Antigen (M - Final 11/16/19 19:00 Urine, Clean Catch Legionella Antigen - Final 11/16/19 21:55 Mucosa - Nasopharyngeal Respiratory Panel (PCR) - Final Laboratory Results 11/16/19 18:10: WBC 19.4 H, RBC 3.80 L, Hgb 11.1 L, Hct 34.3 L, MCV 90.3, MCH 29.2, MCHC 32.4, RDW Std Deviation 56.9 H, RDW Coeff of Radha 18.3 H, Plt Count 237, MPV 10.8, Neut % (Auto) Not Reportable, Absolute Neuts (auto) 18.0 H, Absolute Lymphs (auto) 0.97, Total Counted 100, Neutrophils % (Manual) 78 H, Band Neutrophils % 15 H, Lymphocytes % (Manual) 5 L, Monocytes % (Manual) 2, Diff Path Review June, Platelet Estimate ADEQUATE, RBC Morphology N CHROM, Anisocytosis 1+ 11/16/19 18:10: PT 12.4, INR 1.0, APTT 27.0 11/16/19 18:10: Sodium 134 L, Potassium 3.7, Chloride 100, Carbon Dioxide 23.0, Anion Gap 11, BUN 9, Creatinine 0.62 L, Estim Creat Clear Calc 148.56, Est GFR (MDRD) Af Amer 174, Est GFR (MDRD) Non-Af 144, BUN/Creatinine Ratio 14.5, Glucose 96, Calcium 7.9 L, Total Bilirubin 0.60, AST 13 L, ALT 18, Alkaline Phosphatase 116, Troponin I < 0.015, Total Protein 6.3 L, Albumin 2.9 L, Globulin 3.4, Albumin/Globulin Ratio 0.9 11/16/19 18:10: Lactic Acid 4.0 H* 11/16/19 18:10: Magnesium 1.4 L, Ferritin 879 H, Lactate Dehydrogenase 244 H, C-React Prot Ext Range 7.37 H 11/16/19 18:10: Phosphorus 2.7 11/16/19 19:00: Urine Color Yellow, Urine Clarity Clear, Urine pH 6.5, Ur Specific [place] 1.005, Urine Protein 15 H, Urine Glucose (UA) Normal, Urine Ketones Negative, Urine Occult Blood Negative, Urine Nitrite Negative, Urine Bilirubin Negative, Urine Urobilinogen Normal, Ur Leukocyte Esterase Negative, Urine RBC 0 SEEN, Urine WBC 0-5 SEEN, Ur Squamous Epith Cells 0 SEEN, Urine Bacteria 0 SEEN, Urine Mucus 0 SEEN 11/16/19 21:55: COVID-19 (LEONELA) Not Detected 11/16/19 23:25: Lactic Acid 1.3 11/17/19 06:45: Procalcitonin Pending 11/17/19 06:45: WBC 8.3, RBC 3.58 L, Hgb 10.5 L, Hct 32.7 L, MCV 91.3, MCH 29.3, MCHC 32.1, RDW Std Deviation 56.9 H, RDW Coeff of Radha 18.2 H, Plt Count 202, MPV 10.6, Neut % (Auto) Not Reportable, Absolute Neuts (auto) Pending 11/17/19 06:45: Sodium 141, Potassium 3.8, Chloride 108 H, Carbon Dioxide 29.0, Anion Gap 4 L, BUN 9, Creatinine 0.60 L, Estim Creat Clear Calc 151.69, Est GFR (MDRD) Af Amer 179, Est GFR (MDRD) Non-Af 148, BUN/Creatinine Ratio 14.9, Glucose 81, Calcium 7.7 L, Total Bilirubin 0.90, AST 13 L, ALT 16, Alkaline Phosphatase 102, Total Protein 5.5 L, Albumin 2.6 L, Globulin 2.9, Albumin/Globulin Ratio 0.9 11/17/19 06:45: Troponin I < 0.015 Diagnostic Data Chest X-Ray 11/16/19 18:13 IMPRESSION: No acute cardiopulmonary process. Electronically Signed: Luna Clement MD at 18:30 EDT Tel , Service support , Chest CTA 11/16/19 19:19 IMPRESSION: No demonstrated pulmonary embolism or arterial dissection. Interval decrease in size of right hilar mass, likely reflecting a pathologically enlarged lymph node. Interval decrease in size of right paratracheal lymph node. Atherosclerosis. Emphysema. Electronically Signed: Lnua Clement MD at 20:29 EDT Tel , Service support , Soft Tissue Neck CT 11/16/19 19:20 IMPRESSION: No focal mass or malignant adenopathy utilizing CT size criteria.. There has been significant improvement in previously noted soft tissue thickening of the posterior hypopharyngeal wall and fluid No new masses identified. Endoscopy would be helpful for further evaluation if indicated Electronically Signed: Jarrod Alegre MD at 20:45 EDT , Service support , Current Medications Acetaminophen (Tylenol) 650 mg RECTAL Q4H PRN PRN PRN Reason: fever, pain 1-10/10 Acetaminophen (Tylenol) 650 mg PO Q4H PRN PRN PRN Reason: fever, pain 1-10/10 Al Hydroxide/Mg Hydroxide (Mylanta Ii) 30 ml PO Q6H PRN PRN PRN Reason: Gastric Burning Albuterol Sulfate (Ventolin Aerosols) 2.5 mg INHALATION Q2H PRN PRN PRN Reason: Dyspnea, wheezing Albuterol/Ipratropium (Duoneb) 3 ml INHALATION Q4HWA.RT [facility] Apixaban (Eliquis) 5 mg PO BID [facility] Aspirin (Aspirin, Baby) 81 mg PO DAILY@0800 [facility] Atorvastatin Calcium (Lipitor) 80 mg PO QHS [facility] Bisacodyl (Dulcolax) 10 mg RECTAL .X1 PRN PRN PRN Reason: See label comments Bisacodyl (Dulcolax) 10 mg PO .X1 PRN PRN PRN Reason: See label comments Clonazepam (Klonopin) 0.5 mg PO Q8H PRN PRN PRN Reason: ANXIETY Diphenhydramine HCl (Benadryl) 12.5 - 25 mg IV Q6H PRN PRN PRN Reason: ITCHING Diphenhydramine HCl (Benadryl) 12.5 - 25 mg PO Q6H PRN PRN PRN Reason: Pruritis Escitalopram Oxalate (Lexapro) 10 mg PO DAILY [facility] Folic Acid (Folic Acid) 1 mg PO DAILYCM [facility] Gabapentin (Neurontin) 400 mg PO TIDCM [facility] Guaifenesin (Robitussin) 10 ml PO Q4H PRN PRN PRN Reason: COUGH Heparin Sodium (Beef Lung) () 50 units IV UD PRN PRN Reason: Port-a-Cath (VAD)Heparin Flush Sodium Chloride () 250 mls @ 15 mls/hr IV .[id number] PRN PRN Reason: Saline Flush Last Infusion: 11/17/19 06:34 Dose: 0 mls/hr Documented by: Sodium Chloride () 250 mls @ 15 mls/hr IV .[id number] PRN PRN Reason: Additional IVPB Infusion Sodium Chloride () 1,000 mls @ 125 mls/hr IV .Q8H [facility] Last Infusion: 11/17/19 04:56 Dose: 125 mls/hr Documented by: Piperacillin Sod/Tazobactam (Sod 3.375 gm/ Sodium Chloride) 50 mls @ 12.5 mls/hr IV Q8 [facility] Last Admin: 11/17/19 06:34 Dose: 12.5 mls/hr Documented by: Vancomycin IV Pharmacy to Dose (1 ea/ Sodium Chloride) 500 mls @ 250 mls/hr IV X1 PRN; Protocol PRN Reason: Rx to Dose Vancomycin HCl (Vancomycin) 1,000 mg in 200 mls @ 200 mls/hr IV Q8H [facility] Magnesium Sulfate () 4 gm in 100 mls @ 25 mls/hr IV X1 ONE Stop: 11/17/19 11:29 Ketorolac Tromethamine (Toradol (Bkc)) 30 mg IV Q8 [facility] Stop: 11/18/19 06:01 Last Admin: 11/17/19 05:14 Dose: Not Given Documented by: Lorazepam (Ativan) 0.5 mg IV Q4H PRN PRN PRN Reason: severe anxiety, agitation Metoprolol Tartrate (Lopressor (Beta Levon)) 50 mg PO DAILY [facility] Morphine Sulfate (Roxanol (Ir Oral Solution)) 15 mg PO Q4H PRN PRN PRN Reason: Pain Score 6-10 Last Admin: 11/17/19 06:43 Dose: 15 mg Documented by: Naloxone HCl (Narcan) 0.02 mg IV Q1M PRN PRN Reason: RR <10 and pt unresponsive Nicotine (Nicoderm Cq (Pbkc)) 21 mg TRANSDERM. DAILY [facility] Nutritional Formula (Lactose Free) (Ensure Clear) 120 ml PO 4X/DAY [facility] Ondansetron HCl (Zofran) 4 mg IV Q8H PRN PRN PRN Reason: NAUSEA/VOMITING Pantoprazole Sodium (Protonix) 40 mg PO BID [facility] Phenol/Menthol (Chloraseptic (Bkc)) 5 spray MM Q2H PRN PRN PRN Reason: SORE THROAT Prochlorperazine Edisylate (Compazine Iv) 5 mg IV Q4H PRN PRN PRN Reason: Breakthrough Nausea/Vomiting Senna/Docusate Sodium (Senokot-S, Suzi-Colace) 2 tablet PO QHS [facility] Sodium Chloride () 10 - 40 ml IV UD PRN PRN Reason: Port-a-Cath (VAD) Flush Last Admin: 11/17/19 06:32 Dose: 10 ml Documented by: Sodium Chloride (0.9% Nacl (Sterile) Posiflush) 10 - 40 ml IV UD PRN PRN Reason: Port access or dressing change Throat Lozenges (Cepacol Sore Throat Lozenge) 1 lozenge MUCOUS MEM Q2H PRN PRN PRN Reason: SORE THROAT Trazodone HCl (Desyrel) 50 mg PO QHS [facility] STROKE Vital Signs/Narrative: Vital Signs Pulse Resp BP Pulse Ox 11/17/19 07:00 106 H 21 H 113/56 L 93 11/17/19 06:15 101 H 23 H 118/84 H 93 11/17/19 05:00 102 H 22 H 128/81 H 93 11/17/19 04:17 97 11/17/19 04:03 113 H 11/17/19 04:00 104 H 20 H 129/93 H 89 Medical Necessity - Tobacco Use Smoking Status: Current every day smoker Tobacco Use: Cigarettes Assessment/Plan All Active Problems (Last Updated 04/10/18 @ 11:34 by Raine Huber) SIRS (systemic inflammatory response syndrome) (Acute) Elevated lactic acid level (Acute) Acute pulmonary embolism (Resolved 04/08/18) Chest pain (Resolved) Intermittent palpitations (Resolved) STEMI (ST elevation myocardial infarction) (Resolved) # SIRS criteria no clear source of infection SIRS criteria has resolved on IV vancomycina nd zosyn. urine culture negative. blood cultures pending critical care on board. # Chest pain patient complaiend of chest pain, but it has improved this morning likely due to lung cancer troponins were negative, and CTA of chest was negative for PE or dissection. on tyulenol, toradol and morphine for pain # Pharyngitis: on pain meds as above. # Lung cancer Having chemotherapy at [facility]. Oncologist is Dr. Can. Had a second chemotherapy session last Tuesday. To follow-up with oncology on outpatient basis. #Chronic COPD: Not in exacerbation. Breathing treatment with bronchodilators. #Hypertension: on metoprolol. IV hydralazine prn # CAD: s/p stents. on aspirin, Plavix, statin and metoprolol. #Anxiety and depression: On Klonopin and Lexapro #Heart failure with preserved ejection fraction: Stable. # History of PE: on eliquis DVT prophylaxis: on eliquis. Inpatient E&M: [id number] [facility] Hosp L3
[2019-11-17] MEDS: Ondansetron 4 MG/2 ML Vial IV ×2 (08:21→16:01)
[2019-11-17 08:26] LABS: Procalcitonin 0.12 ng/mL (0.00-0.09)
[2019-11-17] MEDS: LORazepam 2 MG/ML Syringe 0.5 MG IV ×4 (08:26→20:08)
[2019-11-17] MEDS: Magnesium Sulfate 4gm/100mL 4 GM/100 ML IV.SOLN. IV (08:28)
[2019-11-17 09:37] LABS: Lymphocyte 4 % (19-41); Metamyelocyte 1 % (0-1); Monocyte 3 % (0-10); Myelocyte 1 (0-0); Neutrophil-Band 4 % (0-5); Neutrophil-Segmented 87 % (47-70); Platelet Estimate ADEQUATE (ADEQ); Red Cell Morphology NORM C+C NORMAL (NORM C&C); Total Cells Counted 100 (MANUAL DIFF)
[2019-11-17 09:38] LABS: Absolute Lymphocyte Count 0.12 X10^3/uL (0.83-4.51); Absolute Neutrophil Count 7.5 X10^3/uL (2.0-7.7)
[2019-11-17] MEDS: Metoprolol Tartrate 50 MG Tablet PO (09:57)
--- NOTE | 2019-11-17 10:07 | CM.UR ---
Participated in interdisciplinary rounds this am. Patient is to be transferred to [facility] d/t receiving treatment for his lung CA at [facility]. Clint Osuna RN, CCM.
[2019-11-17] MEDS: Vancomycin IV 1,000 MG/200 ML BAG 200 MG IV ×2 (11:24→18:32)
--- NOTE | 2019-11-17 19:13 | CPS ---
Patient refused aerosol tx and IS teaching. Said that he does not have interest in doing either therapy. SHOVEL MECHANIC will complete IS order for this reason.
[2019-11-17] MEDS: APIXABAN 5 MG TABLET PO (21:15)
[2019-11-17] MEDS: Pantoprazole Sodium 40 MG Tablet PO (21:16)
[2019-11-17] MEDS: Phenol/Sodium Phenolate 180ML 5 SPRAY MM (21:24)
[2019-11-18] MEDS: morphine (oral solution) 10MG/0.5ML Syringe 15 MG PO ×3 (00:51→08:11)
[2019-11-18] MEDS: LORazepam 2 MG/ML Syringe 0.5 MG IV ×3 (00:51→09:40)
--- NOTE | 2019-11-18 02:58 | NURSING ---
MATERIAL REQUIREMENTS WORKER Chad reported to me that patient was becoming agitated. Patient states to me that he asked if his monitoring and evaluation advisor could be removed. He was told by Chad that he would have to ask the nurse. The patient became agitated and refused to put the monitor back on. Patient refused to allow lab to draw Vancomycin trough because he has an implanted med port. I spoke with patient and he is agreeable to having someone draw the vancomycin trough from his port. He continues to refuse monitoring and evaluation advisor because he can't sleep with the monitor on. Kaleigh calibration laboratory technician notified of the above.
[2019-11-18 03:00] VITALS: PULSE 75
[2019-11-18 03:06] VITALS: BP 108/67; PULSE 77; RESP 16; TEMP 36.9; O2SAT 96
[2019-11-18] MEDS: 0.9% Normal Saline 1,000 ML 125 ML IV (03:58)
[2019-11-18 04:34] LABS: Vancomycin, Trough Level 13.3 ug/mL (5.0-15.0)
[2019-11-18] MEDS: Vancomycin IV 1,000 MG/200 ML BAG 200 MG IV (04:56)
[2019-11-18] MEDS: Ketorolac 30 MG/ML Syringe IV (06:22)
--- NOTE | 2019-11-18 07:05 | PCM.RX.CS ---
Consult Pharmacy has been consulted to manage selected antiobiotic: Vancomycin Type of Consult: Follow-up Labs: Sodium 141 mmol/L (136-145) 11/17/19 06:45 Potassium 3.8 mmol/L (3.5-5.1) 11/17/19 06:45 Chloride 108 mmol/L (98-107) H 11/17/19 06:45 Carbon Dioxide 29.0 mmol/L (21.0-32.0) 11/17/19 06:45 Anion Gap 4 (5-15) L 11/17/19 06:45 BUN 9 mg/dL (7-18) 11/17/19 06:45 Creatinine 0.60 mg/dL (0.70-1.30) L 11/17/19 06:45 Est GFR (MDRD) Af Amer 179 mL/min (>60) 11/17/19 06:45 Est GFR (MDRD) Non-Af 148 mL/min (>60) 11/17/19 06:45 BUN/Creatinine Ratio 14.9 RATIO (-) 11/17/19 06:45 Glucose 81 mg/dL (74-106) 11/17/19 06:45 Vancomycin Trough 13.3 ug/mL (5.0-15.0) 11/18/19 03:05 Microbiology: Microbiology 11/16/19 19:00 Urine, Clean Catch Urine Culture - Preliminary Culture exhibits no growth. 11/16/19 19:00 Urine, Clean Catch Streptococcus pneumoniae Antigen (M - Final 11/16/19 19:00 Urine, Clean Catch Legionella Antigen - Final 11/16/19 21:55 Mucosa - Nasopharyngeal Respiratory Panel (PCR) - Final Goal Trough: 15-20 mcg/mL Pharmacy Plan for Drug Dosing: Pharmacy Service will continue to monitor and adjust dosing as required. TROUGH 13.3 RECHECK ON 11/18 Follow-Up Labs: Trough Vancomycin Labs to be done on [date and time ordered]: 11/18 @ [id number]
[2019-11-18 07:59] LABS: Absolute Lymphocyte Count 0.22 X10^3/uL (0.83-4.51); Basophil# 0.02 X10^3/uL; Basophil% 0.8 % (0-1); Eosinophil# 0.04 X10^3/uL; Eosinophils% 1.6 % (0-5); Hematocrit 29.6 % (40-54); Hemoglobin 9.5 g/dL (13.0-16.5); Lymphocyte # 0.22 X10^3/ul (4.0); Lymphocyte % 8.6 % (19-41); Mean Corp Hgb Conc 32.1 g/dL (32-36); Mean Corpuscular Hgb 29.3 pg (27.0-32.0); Mean Corpuscular Volume 91.4 fL (80-94); Mean Platelet Vol. 10.2 fl (6.2-12.0); Monocyte# 0.22 X10^3/uL; Monocyte% 8.6 % (0-10); NRBC Flagged by Analyzer 0 % (0-5); Neutrophil # 2.03 X10^3/uL (2.7-7.7); Neutrophil % 78.8 % (47-70); POSITIVE DIFFERENTIAL YES; POSITIVE MORPHOLOGY YES; Platelet Count 163 K/mm3 (150-450); RBC Distribution Width SD 57.8 fl (35.1-43.9); Red Blood Count 3.24 M/mm3 (4.6-6.2); White Blood Count 2.6 K/mm3 (4.4-11.0)
[2019-11-18 08:09] LABS: Differential Indicated SCAN CRITERIA MET
[2019-11-18] MEDS: 0.9% Saline Lock 10 ML Syringe IV ×3 (08:13→09:47)
[2019-11-18 08:22] LABS: Anion Gap 4 (5-15); BUN 8 mg/dL (7-18); BUN/Creat Ratio 13.4 RATIO (10-20); Calcium,Total 7.6 mg/dL (8.5-10.1); Chloride 108 mmol/L (98-107); EST Glomerular Filtration Rate 150 mL/min (>60); Est Glom Filt Rate - Afr Amer 182 mL/min (>60); Estimated Creatinine Clearance 151.69 ml/min; Glucose 79 mg/dL (74-106); Potassium 3.8 mmol/L (3.5-5.1); Sodium Level 139 mmol/L (136-145)
[2019-11-18 08:39] LABS: Differential Comment SCANNED
--- NOTE | 2019-11-18 09:31 | PCM.DC ---
- Discharge Diagnoses Current Active Problems: Current Active and Chronic Problems (Last Updated 04/10/18 @ 11:34 by Raine Huber) SIRS (systemic inflammatory response syndrome) (Acute) Elevated lactic acid level (Acute) PAF (paroxysmal atrial fibrillation) (Chronic) COPD (chronic obstructive pulmonary disease) (Chronic) Lung cancer (Chronic) Chest pain (Chronic) Pharyngitis (Chronic) You will use the following diet at home:: Cardiac Your food should be the consistency of: Regular Your liquids should be the consistency of: Regular/Thin Discharge Activity: Return to Normal Activity Weight Bearing Status: Weight bearing as tolerated Call your doctor if you observe: Fever of 101 or Higher, Shortness of breath, Dizziness, Fainting spells, Swelling in the ankles, Uncontrolled pain Additional Instructions: follow up with oncologist at [facility] in 1-2 weeks. Follow up with PCP in 1-2 weeks Allergies/Adverse Reactions: Allergies No Known Allergies Allergy (Verified 11/09/19 21:26) Medications to take at Discharge Aspirin [Aspirin, Baby] 162 mg PO DAILY@0800 10/03/17 Clonazepam [Klonopin] 0.5 mg PO Q8H PRN PRN 09/08/19 Escitalopram Oxalate [Lexapro] 10 mg PO DAILY 09/08/19 Folic Acid 1 mg PO DAILY 09/08/19 Morphine [Morphine IR] 15 mg PO Q4H PRN PRN 09/08/19 Metoprolol Tartrate [Lopressor (beta luis)] 50 mg PO DAILY 10/28/19 Albuterol IH (ProAir) [Proair Hfa] 1 - 2 puff INHALATION Q4H PRN PRN #1 inhaler 10/30/19 Apixaban [Eliquis] 5 mg PO BID #0 10/30/19 Gabapentin [Neurontin] 400 mg PO TIDCM #90 cap 10/30/19 Pantoprazole Sodium [Protonix] 40 mg PO BID #60 tab 10/30/19 Phenol/Sodium Phenolate [Chloraseptic (BKC)] 5 spray MM Q2H PRN PRN #1 bottle 10/30/19 Atorvastatin Calcium mg PO DAILY 11/09/19 traZODone [Desyrel] 50 mg PO QHS 11/09/19 Primary Care Physician: Care Physician,No Primary [Primary Care Provider] - Test Results: Test results from this visit will be discussed in further detail at your follow-up appointment, if applicable. Proposed Discharge Date: 11/18/19
--- NOTE | 2019-11-18 09:34 | DS.PCM_ITS ---
Discharge Date and Diagnosis Date of Admission: 11/16/19 Date of Discharge: 11/18/19 - Primary Discharge Diagnosis Acute Problems: Active Problems (Last Updated 04/10/18 @ 11:34 by Raine Huber) SIRS (systemic inflammatory response syndrome) (Acute) Elevated lactic acid level (Acute) - Secondary Discharge Diagnosis Chronic Problems: Chronic Problems (Last Updated 04/10/18 @ 11:33 by Raine Huber) New onset atrial fibrillation (Chronic) PAF (paroxysmal atrial fibrillation) (Chronic) COPD (chronic obstructive pulmonary disease) (Chronic) Lung cancer (Chronic) Chest pain (Chronic) Pharyngitis (Chronic) Essential (primary) hypertension (Chronic) Nicotine dependence (Chronic) HLD (hyperlipidemia) (Chronic) Alcohol abuse (Chronic) NSTEMI (non-ST elevated myocardial infarction) (Chronic 04/07/18) Atherosclerosis of coronary artery of [place] heart with angina pectoris (Chronic) BMS-Prox and Distal RCA 12/23/16 History of coronary artery stent placement (Chronic 12/23/16) BMS-Prox and Distal RCA 12/23/16 Hospital Course and Treatment Imaging Results: Diagnostic Data Chest X-Ray 11/16/19 18:13 IMPRESSION: No acute cardiopulmonary process. Electronically Signed: Luna Clement MD at 18:30 EDT Tel , Service support , Chest CTA 11/16/19 19:19 IMPRESSION: No demonstrated pulmonary embolism or arterial dissection. Interval decrease in size of right hilar mass, likely reflecting a pathologically enlarged lymph node. Interval decrease in size of right paratracheal lymph node. Atherosclerosis. Emphysema. Electronically Signed: Luna Clement MD at 20:29 EDT Tel , Service support , Soft Tissue Neck CT 11/16/19 19:20 IMPRESSION: No focal mass or malignant adenopathy utilizing CT size criteria.. There has been significant improvement in previously noted soft tissue thickening of the posterior hypopharyngeal wall and fluid No new masses identified. Endoscopy would be helpful for further evaluation if indicated Electronically Signed: Jarrod Alegre MD at 20:45 EDT , Service support , critical care- Dr Benavides Operations: None Procedures: None Summary of Care Provided: The patient is a 54 year old M with an extensive PMH as outlined below, who was admitted via the ED on 11/16/2019 with a complaint of shortness of breath and chest pain.On admission, he was afebrile, but was tachycardic and tachypneic with elevated white cell count of 20,000. Chemistry was unremarkable and lactic acid was elevated at 4 with magnesium low at 1.4. Troponins were negative and UA showed no evidence of UTI. Covid test done was also negative. CT of the chest showed no evidence of PE but did show bilateral emphysematous changes and distal paratracheal and right hilar lymphadenopathy. He was started on IV vancomycin and Zosyn as a precaution and hydrated with IV fluids. He was admitted to the ICU. Patient still was complicated by a lot of pain and anxiety which was only relieved by IV Roxanol and Klonopin. He was admitted and managed for SIRS criteria with no clear source of infection. Patient says he had just completed a second round of chemotherapy about 2 weeks prior to admission. SIRS criteria resolved. Urine for strep and Legionella antigens were negative and respiratory panel was also negative. Urine culture was negative and blood cultures also showed no growth. Patient symptoms improved significantly and he felt much better and was transferred out of the ICU. Patient insisted on being discharged home on 11/18/2019 and had a greater than sign out AMA during the course of his stay. He was discharged home on 11/18/2019. He is to follow-up with his primary care doctor within 1 to 2 weeks. He is also to follow-up with his oncologist at [facility]. Patient seen and examined prior to discharge. He complained of pain, but said he felt he had to learn to live with the pain as he was dying from cancer, and didnt think he would get any better from his cancer. Review of systems was otherwise negative. Labs and vitals reviewed. Home meds reviewed and reconciled. O/E; Vital Signs Temp Pulse Resp BP Pulse Ox 97.8 F 80 18 122/75 H 92 11/18/19 09:43 11/18/19 09:43 11/18/19 09:43 11/18/19 09:43 11/18/19 09:43 [] General: Alert, Oriented x3, Cooperative, No apparent distress HEENT: Atraumatic, PERRLA, EOMI, Normocephalic Oral: Dry Mucosa Neck: Supple, No JVD, Negative Carotid Bruits Lungs: - - decreased breath sounds bibasally, no wheezes or crackles. Cardiovascular: Regular rate, Regular Rhythm, Normal S1, Normal S2, No murmurs Abdomen: Bowel Sounds Present, Soft, Non Tender, Non-Distended, No Hepato- splenomegaly Extremities: No clubbing, No cyanosis, No edema, Capillary Refill Less than 3 Seconds Skin: No rashes, No breakdown Musculoskeletal: No Tenderness to Palpation of Joints or Extremities Lymphatic: No Cervical, Supraclavicular, or Inguinal Adenopathy Neurological: Cranial nerves II-XII grossly intact, Neuro grossly intact, Motor Exam 5/5 strength throughout Psych/Mental Status: Normal Affect, Appropriate, Alert and oriented to time, place, person, mood and affect Plan is for discharge home today. Of note, patient was not discharged on any antibiotics since all cultures have been negative and his symptoms had fully resolved. - Physical Exam Vitals/I&O's: Vital Signs Temp Pulse Resp BP Pulse Ox 98.5 F 77 16 108/67 96 11/18/19 03:06 11/18/19 03:06 11/18/19 03:06 11/18/19 03:06 11/18/19 03:06 Oxygen Flow Rate (L/min) 2 Oxygen Delivery Method Room Air Weight: 182 lb 5.156 oz Body Mass Index (BMI) 20.9 Intake and Output for Last 24 Hours 11/16/19 11/17/19 11/18/19 23:59 23:59 23:59 Intake Total 2500 / 2500 3255.75 / 3735.75 1809.17 / 1809.17 Output Total 1775 / 2350 825 / 825 Balance 2500 / 2500 1480.75 / 1385.75 984.17 / 984.17 Microbiology Past 72 Hours 11/16/19 19:00 Urine, Clean Catch Urine Culture - Preliminary Culture exhibits no growth. 11/16/19 19:00 Urine, Clean Catch Streptococcus pneumoniae Antigen (M - Final 11/16/19 19:00 Urine, Clean Catch Legionella Antigen - Final 11/16/19 21:55 Mucosa - Nasopharyngeal Respiratory Panel (PCR) - Final Laboratory Results 11/17/19 06:45: Absolute Neuts (auto) 7.5, Absolute Lymphs (auto) 0.12 L, Total Counted 100, Neutrophils % (Manual) 87 H, Band Neutrophils % 4, Lymphocytes % (Manual) 4 L, Monocytes % (Manual) 3, Metamyelocytes % 1, Myelocytes % 1 H, Diff Path Review June, Platelet Estimate ADEQUATE, RBC Morphology NORM C+C 11/17/19 09:52: Troponin I < 0.015 11/18/19 03:05: Vancomycin Trough 13.3 11/18/19 07:50: WBC 2.6 L, RBC 3.24 L, Hgb 9.5 L, Hct 29.6 L, MCV 91.4, MCH 29.3, MCHC 32.1, RDW Std Deviation 57.8 H, RDW Coeff of Radha 18.0 H, Plt Count 163, MPV 10.2, Immature Gran % (Auto) 1.600 H, Neut % (Auto) 78.8 H, Lymph % (Auto) 8.6 L, [place] % (Auto) 8.6, Eos % (Auto) 1.6, Baso % (Auto) 0.8, Absolute Neuts (auto) 2.0, Absolute Lymphs (auto) 0.22 L, Nucleated RBC % 0, Differential Comment SCANNED 11/18/19 07:50: Sodium 139, Potassium 3.8, Chloride 108 H, Carbon Dioxide 27.0, Anion Gap 4 L, BUN 8, Creatinine 0.60 L, Estim Creat Clear Calc 151.69, Est GFR (MDRD) Af Amer 182, Est GFR (MDRD) Non-Af 150, BUN/Creatinine Ratio 13.4, Glucose 79, Calcium 7.6 L, Magnesium 2.0 Diagnostic Data Chest X-Ray 11/16/19 18:13 IMPRESSION: No acute cardiopulmonary process. Electronically Signed: Luna Clement MD at 18:30 EDT Tel , Service support , Chest CTA 11/16/19 19:19 IMPRESSION: No demonstrated pulmonary embolism or arterial dissection. Interval decrease in size of right hilar mass, likely reflecting a pathologically enlarged lymph node. Interval decrease in size of right paratracheal lymph node. Atherosclerosis. Emphysema. Electronically Signed: Luna Clement MD at 20:29 EDT Tel , Service support , Soft Tissue Neck CT 11/16/19 19:20 IMPRESSION: No focal mass or malignant adenopathy utilizing CT size criteria.. There has been significant improvement in previously noted soft tissue thickening of the posterior hypopharyngeal wall and fluid No new masses identified. Endoscopy would be helpful for further evaluation if indicated Electronically Signed: Jarrod Alegre MD at 20:45 EDT , Service support , Current Medications Acetaminophen (Tylenol) 650 mg RECTAL Q4H PRN PRN PRN Reason: fever, pain 1-10/10 Acetaminophen (Tylenol) 650 mg PO Q4H PRN PRN PRN Reason: fever, pain 1-10/10 Al Hydroxide/Mg Hydroxide (Mylanta Ii) 30 ml PO Q6H PRN PRN PRN Reason: Gastric Burning Albuterol Sulfate (Ventolin Aerosols) 2.5 mg INHALATION Q2H PRN PRN PRN Reason: Dyspnea, wheezing Albuterol/Ipratropium (Duoneb) 3 ml INHALATION Q4HWA.RT [facility] Last Admin: 11/18/19 07:08 Dose: Not Given Documented by: Apixaban (Eliquis) 5 mg PO BID [facility] Last Admin: 11/18/19 08:18 Dose: Not Given Documented by: Aspirin (Aspirin, Baby) 81 mg PO DAILY@0800 [facility] Last Admin: 11/18/19 08:17 Dose: Not Given Documented by: Atorvastatin Calcium (Lipitor) 80 mg PO QHS [facility] Last Admin: 11/17/19 21:15 Dose: Not Given Documented by: Bisacodyl (Dulcolax) 10 mg RECTAL .X1 PRN PRN PRN Reason: See label comments Bisacodyl (Dulcolax) 10 mg PO .X1 PRN PRN PRN Reason: See label comments Clonazepam (Klonopin) 0.5 mg PO Q8H PRN PRN PRN Reason: ANXIETY Diphenhydramine HCl (Benadryl) 12.5 - 25 mg IV Q6H PRN PRN PRN Reason: ITCHING Diphenhydramine HCl (Benadryl) 12.5 - 25 mg PO Q6H PRN PRN PRN Reason: Pruritis Escitalopram Oxalate (Lexapro) 10 mg PO DAILY [facility] Last Admin: 11/18/19 08:18 Dose: Not Given Documented by: Folic Acid (Folic Acid) 1 mg PO DAILYCM [facility] Last Admin: 11/18/19 08:18 Dose: Not Given Documented by: Gabapentin (Neurontin) 400 mg PO TIDCM [facility] Last Admin: 11/18/19 08:18 Dose: Not Given Documented by: Guaifenesin (Robitussin) 10 ml PO Q4H PRN PRN PRN Reason: COUGH Heparin Sodium (Beef Lung) () 50 units IV UD PRN PRN Reason: Port-a-Cath (VAD)Heparin Flush Sodium Chloride () 250 mls @ 15 mls/hr IV .[id number] PRN PRN Reason: Saline Flush Last Infusion: 11/17/19 14:08 Dose: 0 mls/hr Documented by: Sodium Chloride () 250 mls @ 15 mls/hr IV .[id number] PRN PRN Reason: Additional IVPB Infusion Sodium Chloride () 1,000 mls @ 125 mls/hr IV .Q8H [facility] Last Admin: 11/18/19 03:58 Dose: 125 mls/hr Documented by: Piperacillin Sod/Tazobactam (Sod 3.375 gm/ Sodium Chloride) 50 mls @ 12.5 mls/hr IV Q8 [facility] Last Admin: 11/18/19 06:22 Dose: 12.5 mls/hr Documented by: Vancomycin IV Pharmacy to Dose (1 ea/ Sodium Chloride) 500 mls @ 250 mls/hr IV X1 PRN; Protocol PRN Reason: Rx to Dose Vancomycin HCl (Vancomycin) 1,000 mg in 200 mls @ 200 mls/hr IV Q8H [facility] Last Infusion: 11/18/19 05:56 Dose: Infused Documented by: Lorazepam (Ativan) 0.5 mg IV Q4H PRN PRN PRN Reason: severe anxiety, agitation Last Admin: 11/18/19 04:56 Dose: 0.5 mg Documented by: Metoprolol Tartrate (Lopressor (Beta Levon)) 50 mg PO DAILY [facility] Last Admin: 11/18/19 08:18 Dose: Not Given Documented by: Morphine Sulfate (Roxanol (Ir Oral Solution)) 15 mg PO Q3H PRN PRN PRN Reason: Pain Score 6-10 Last Admin: 11/18/19 08:11 Dose: 15 mg Documented by: Naloxone HCl (Narcan) 0.02 mg IV Q1M PRN PRN Reason: RR <10 and pt unresponsive Nicotine ([facility] Cq (Pbkc)) [facility] Admin: 11/17/19 21:16 Dose: Not Given Documented by: Ondansetron HCl (Zofran) 4 mg IV Q8H PRN PRN PRN Reason: NAUSEA/VOMITING Last Admin: 11/17/19 16:01 Dose: 4 mg Documented by: Pantoprazole Sodium (Protonix) 40 mg PO BID [facility] Last Admin: 11/18/19 08:18 Dose: Not Given Documented by: Phenol/Menthol (Chloraseptic (Bkc)) 5 spray MM Q2H PRN PRN PRN Reason: SORE THROAT Last Admin: 11/17/19 21:24 Dose: 5 spray Documented by: Prochlorperazine Edisylate (Compazine Iv) 5 mg IV Q4H PRN PRN PRN Reason: Breakthrough Nausea/Vomiting Senna/Docusate Sodium (Senokot-S, Suzi[facility]Colace) [facility] Admin: 11/17/19 21:17 Dose: Not Given Documented by: Sodium Chloride () 10 - 40 ml IV UD PRN PRN Reason: Port-a-Cath (VAD) Flush Last Admin: 11/18/19 08:13 Dose: 10 ml Documented by: Sodium Chloride (0.9% Nacl (Sterile) Posiflush) 10 - 40 ml IV UD PRN PRN Reason: Port access or dressing change Throat Lozenges (Cepacol Sore Throat Lozenge) 1 lozenge MUCOUS MEM Q2H PRN PRN PRN Reason: SORE THROAT Trazodone HCl (Desyrel) 50 mg PO QHS [facility] Last Admin: 11/17/19 23:20 Dose: Not Given Documented by: Discharge Diet: Low fat/ Low Cholesterol Discharge Activity: Return to Normal Activity Weight Bearing Status: Weight bearing as tolerated Call your doctor if you observe: Fever of 101 or Higher, Shortness of breath, Dizziness, Fainting spells, Swelling in the ankles, Uncontrolled pain Home Medications: Medications to take at Discharge Aspirin [Aspirin, Baby] 162 mg PO DAILY@0800 10/03/17 Clonazepam [Klonopin] 0.5 mg PO Q8H PRN PRN 09/08/19 Escitalopram Oxalate [Lexapro] 10 mg PO DAILY 09/08/19 Folic Acid 1 mg PO DAILY 09/08/19 Morphine [Morphine IR] 15 mg PO Q4H PRN PRN 09/08/19 Metoprolol Tartrate [Lopressor (beta levon)] 50 mg PO DAILY 10/28/19 Albuterol IH (ProAir) [Proair Hfa] 1 - 2 puff INHALATION Q4H PRN PRN #1 inhaler 10/30/19 Apixaban [Eliquis] 5 mg PO BID #0 10/30/19 Gabapentin [Neurontin] 400 mg PO TIDCM #90 cap 10/30/19 Pantoprazole Sodium [Protonix] 40 mg PO BID #60 tab 10/30/19 Phenol/Sodium Phenolate [Chloraseptic (BKC)] 5 spray MM Q2H PRN PRN #1 bottle 10/30/19 Atorvastatin Calcium mg PO DAILY 11/09/19 traZODone [Desyrel] 50 mg PO QHS 11/09/19 Primary Care Physician: Care Physician,No Primary [Primary Care Provider] - When: oncologist at [facility] Disposition: Home Minutes spent on discharge:: 40 Patient Condition:: Stable Medical Necessity - Tobacco Use Smoking Status: Current every day smoker Tobacco Use: Cigarettes Meaningful Use Info Meaningful Use Diagnoses (Choose all that apply): None applicable Inpatient E&M: 80385 Disch Hosp
[2019-11-18 09:43] VITALS: BP 122/75; PULSE 80; RESP 18; TEMP 36.6; O2SAT 92
[2019-11-19 11:58] LABS: Pathologist Review Reviewed
--- NOTE | 2019-11-19 11:58 | CASEMGMT ---
DILIP FOWLER Discharge Follow-up Phone Call: THELMA: 14 Strata: 4 Call Date: 11/19/2019 Discharge Date: 11/18/2019 Time of Call: 1155 Admitting Diagnosis: SIRS Discharge follow-up call placed to pt. Pt states he is feeling much better since leaving the hospital. Pt's voice at a whisper. Pt states he has an appointment with his oncologist in [place]. Noted pt to have had a previous palliative care consultation prior at admission. Pt denied any questions or concerns at this time. Yuly Archer RN CM
[2019-11-19 12:03] LABS: Pathologist Review Reviewed
[2019-11-19 12:04] LABS: Pathologist Review Reviewed
== END 2019-11-18 10:06 | disposition home or self-care (01) | DRG 641 ==
LOC: ED 19:11 → ICU 23:15 → PCU 11-17 15:19
PROVIDERS: Admitting Provider Family Medicine; Emergency Provider Student in an Organized Health Care Education/Training Program; Visit Provider Student in an Organized Health Care Education/Training Program
DX: E87.2 Acidosis (principal); R65.10 Systemic inflammatory response syndrome (SIRS) of non-infectious origin without acute organ dysfunction; I50.32 Chronic diastolic (congestive) heart failure; C34.90 Malignant neoplasm of unspecified part of unspecified bronchus or lung; D63.0 Anemia in neoplastic disease; I48.0 Paroxysmal atrial fibrillation; J44.9 Chronic obstructive pulmonary disease, unspecified; I49.3 Ventricular premature depolarization; I25.119 Atherosclerotic heart disease of native coronary artery with unspecified angina pectoris; I11.0 Hypertensive heart disease with heart failure; Z95.5 Presence of coronary angioplasty implant and graft; I25.2 Old myocardial infarction; F10.10 Alcohol abuse, uncomplicated; F17.210 Nicotine dependence, cigarettes, uncomplicated; Z79.899 Other long term (current) drug therapy; Z79.01 Long term (current) use of anticoagulants; Z79.82 Long term (current) use of aspirin; Z86.711 Personal history of pulmonary embolism; F41.9 Anxiety disorder, unspecified; F32.9 Major depressive disorder, single episode, unspecified; E78.5 Hyperlipidemia, unspecified; E83.42 Hypomagnesemia; G89.4 Chronic pain syndrome
CPT/HCPCS: 36591; 70491; 71045; 71275; 80048; 80053; 80202; 81001; 82728; 83605; 83615; 83735; 84100; 84145; 84484; 85025; 85610; 85730; 86140; 87040; 87086; 87449; 87633; 87635; 93005; 97802; 99285; 99406; J7030; J7040; J7050; Q9967; A4216; J2405; U0003

== ENCOUNTER 2019-12-18 13:51 | Emergency (ER) | payer BC, SELFPAY ==
[2017-01-12 13:36] VITALS: BMI 26.6
[2019-11-17 01:14] VITALS: BMI 20.9
[2019-12-18 13:51] VITALS: BP 107/68; PULSE 111; RESP 21; TEMP 36.3; O2SAT 99; BMI 21.5
--- NOTE | 2019-12-18 14:03 | EKG12_ITS ---
Test Reason : Blood Pressure : / mmHG Vent. Rate : 094 BPM Atrial Rate : 094 BPM P-R Int : 138 ms QRS Dur : 082 ms QT Int : 346 ms P-R-T Axes : 000 -02 057 degrees QTc Int : 432 ms Sinus rhythm with Premature atrial complexes in a pattern of bigeminy Otherwise normal ECG Confirmed by ED VENTURA, GURPREET ([id number]), website/blog editor FEMI AKHTAR ([id number]) on 12/19/2019 8:37:13 AM Referred By: VITOR Confirmed By:GURPREET WARD MD
--- NOTE | 2019-12-18 14:03 | RAD_ITS ---
STUDY: X-RAY CHEST REASON FOR EXAM: Male, 54 years old. Patient having chest pain since sun day keeps getting worse, coughing up brown and white sputum, hx of lung ca TECHNIQUE: Single AP portable view of the chest. COMPARISON: Comparison is made with prior study dated 11/16/2019. FINDINGS: EKG electrodes are seen. Hyperinflation. There now is evidence of a focal infiltrate in the lateral aspect of the right mid lung. Stable mild scarring at the lung bases. There is no demonstrated pleural abnormality. Normal size heart. Normal mediastinum and stephen. Normal visualized pulmonary arteries. Normal visualized aortic arch and descending thoracic aorta. Normal visualized thoracic spine. Normal visualized ribs, clavicles, and shoulders. There is no demonstrated abnormality of the visualized soft tissue structures of the upper abdomen. RAD/Chest 1 View (Portable) IMPRESSION: Focal infiltrate in the peripheral aspect of the right mid lung. Electronically Signed: Tanner Jiménez, at 15:02 EST , Service support ,
[2019-12-18 14:14] VITALS: O2SAT 96
[2019-12-18 14:20] LABS: Absolute Neutrophil Count 10.6 X10^3/uL (2.0-7.7); Basophil# 0.04 X10^3/uL; Basophil% 0.3 % (0-1); Differential Indicated SCAN CRITERIA MET; Hematocrit 33.4 % (40-54); Hemoglobin 10.8 g/dL (13.0-16.5); Lymphocyte % 4.8 % (19-41); Mean Corp Hgb Conc 32.3 g/dL (32-36); Mean Corpuscular Hgb 31.4 pg (27.0-32.0); Mean Corpuscular Volume 97.1 fL (80-94); Mean Platelet Vol. 9.9 fl (6.2-12.0); Monocyte% 8.7 % (0-10); NRBC Flagged by Analyzer 0 % (0-5); Neutrophil # 10.62 X10^3/uL (2.7-7.7); Neutrophil % 84.2 % (47-70); POSITIVE COUNT YES; POSITIVE DIFFERENTIAL YES; POSITIVE MORPHOLOGY YES; Platelet Count 84 K/mm3 (150-450); RBC Distribution Width CV 24.8 % (11.6-14.6); RBC Distribution Width SD 82.9 fl (35.1-43.9); Red Blood Count 3.44 M/mm3 (4.6-6.2); White Blood Count 12.6 K/mm3 (4.4-11.0)
--- NOTE | 2019-12-18 14:29 | ED.DCSUM_ITS ---
- ER Visit Summary Date of Service: 12/18/19 Chief Complaint: Chest pain History of Present Illness: The patient is a 54 M history of CAD, MIs x2, cardiac stents, prior pulmonary emboli on Eliquis, COPD without O2 and lung cancer stage III on chemotherapy. They states for last 3 days since Tuesday he has had chest discomfort. Worse with coughing. Denies hemoptysis. Denies it being exertional. Said it does not feel like his prior cardiac chest pain nor the pain he had when he had his prior pulmonary emboli. He denies any change or worsening of his chronic shortness of breath. He denies any fever. Does have a cough of brown sputum. Was hospitalized about 3 weeks ago was placed on antibiotics for what he termed was a lung infection. Physical Examination: Middle-aged male vital signs are stable afebrile pulse ox 96% on room air no signs of hypoxia. He is in no respiratory distress. H EENT exam unremarkable. Neck nontender. No lymphadenopathy. Lungs few scattered expiratory wheezes. No rales or rhonchi. Heart regular rhythm rate about 94 no murmur. Abdomen soft nontender normal bowel sounds no peritoneal signs. Extremities moves all 4. Calves are nontender no edema or cords. Neurologically is awake alert. Moving all 4 extremities. No focal motor defi cits. Test Results: EKG shows emergency sinus rhythm rate of 94 with PACs. No signs of DE or ischemia. BC white count 12.6 hemoglobin is 10 which is baseline anemia. Chemistries unremarkable. Troponin normal. Portable chest x-ray 1 view showed right hilar mass questionable right mid lung infiltrate. Due to the pain in his history obtain a CTA of the chest which showed a left-sided PICC line a right hilar mass with lymphadenopathy. There was no PE. No dissection. There was a small right pleural effusion and they did not see any infiltrate on the CTA. This was read by the radiologist and reviewed by me. Emergency Department Course and Treatment: Patient has chest pain does not sound cardiac but with his history of undergoing cardiac work-up. He is already on Eliquis for his prior PE history this may or may not be musculoskeletal. It may or may not be associated with his lung cancer. Exam patient is doing well at 1630. No change. Treatment Plan: Discharged home. Patient is already on gabapentin and morphine for his pain. Outpatient follow-up with his oncologist. Return if worse. Disposition: Discharge Impression: Acute chest pain secondary to right hilar mass History of CAD with prior MIs and cardiac stents. History of COPD History of pulmonary emboli currently anticoagulated on Eliquis History of lung CA on chemotherapy This note was generated with [employer] dictation software. It may contain incorrect words, spelling, and punctuation that were not noted in review of the chart prior to signing ED Disposition - Plan for ED Patient: Referrals: Care Physician,No Primary [Primary Care Provider] -
[2019-12-18 14:38] LABS: Anion Gap 5 (5-15); BUN 6 mg/dL (7-18); BUN/Creat Ratio 7.4 RATIO (10-20); Calcium,Total 8.9 mg/dL (8.5-10.1); Chloride 105 mmol/L (98-107); Creatinine, Serum 0.81 mg/dL (0.70-1.30); EST Glomerular Filtration Rate 106 mL/min (>60); Est Glom Filt Rate - Afr Amer 128 mL/min (>60); Estimated Creatinine Clearance 115.17 ml/min; Glucose 105 mg/dL (74-106); Potassium 3.7 mmol/L (3.5-5.1); Sodium Level 138 mmol/L (136-145)
[2019-12-18 14:41] LABS: Platelet Estimate MOD DEC (ADEQ)
[2019-12-18 14:59] VITALS: BP 128/79; PULSE 102; RESP 18; O2SAT 96
[2019-12-18] MEDS: morphine 8 MG/ML Syringe 6 MG IV (15:09)
[2019-12-18] MEDS: Ondansetron 4 MG/2 ML Vial IV (15:09)
--- NOTE | 2019-12-18 15:16 | CT_ITS ---
STUDY: CTA CHEST REASON FOR EXAM: Male, 54 years old. CHEST PAIN, COUGHING UP BROWN SPUTUM, COPD, EMPHYSEMA, LUNG CA, HTN, DC, HEART CATH, STENTS RADIATION DOSAGE (If Supplied By Facility): CTDIvol = ( 6.89 ) mGy, DLP = ( 328.15 ) mGycm TECHNIQUE: The examination was performed with the intravenous administration of IV 100mL [id number]-370. Post-processing of the angiographic images was performed, with multiplanar reformation and 3D reconstruction. Individualized dose optimization techniques were used for this CT. COMPARISON: Comparison is made with prior chest graft done earlier today as well as prior CT scan of the chest dated 11/16/2019. FINDINGS: A left-sided PICC line catheter is seen with the tip in the proximal portion of the superior vena cava. Normal enhancement of the main pulmonary artery and right and left pulmonary arteries. Normal enhancement of the bilateral peripheral pulmonary arteries. There is no demonstrated pulmonary embolism. Normal thoracic aorta and visualized great vessels. There is no demonstrated aortic dissection. There are calcifications of the coronary arteries. Persistent right mediastinal mass measuring 5 cm x 4.6 cm. This has progressed as compared to prior study. Persistent right hilar lymph node measuring 3.2 size by 2.7 cm. Normal visualized trachea and bronchi. The lungs are well expanded. There is evidence of a small right pleural effusion with air fluid in the right major fissure. This causes the density seen on the chest radiograph. This also evidence of increased markings in the anterior aspect of the right middle lobe. This is unchanged. Normal pleura. Normal chest wall structures. There are degenerative changes of thoracic spine. Stable healed left rib fracture. Normal visualized upper abdomen. CT/CTA Chest W/WO Contrast IMPRESSION: No evidence of pulmonary embolism. Progressive enlargement of the right mediastinal mass. Stable right hilar adenopathy. Small right pleural effusion with fluid in the right major fissure. Stable scarring in the anterior aspect of the right middle lobe. Electronically Signed: Tanner Jiménez, at 16:02 EST , Service support ,
[2019-12-18] MEDS: 0.9% Normal Saline 1,000 ML 999 ML IV (15:21)
--- NOTE | 2019-12-18 16:39 | ED.DEP ---
ED Disposition - Plan for ED Patient: Disposition: Home or Assisted Living Additional Instructions: Continue your pain medications and gabapentin. Follow-up with your oncologist. I suspect your chest pain is from the lung cancer. There is no signs of pneumonia or blood clot. Return the emergency department if you are feeling worse.
[2019-12-18 17:05] VITALS: BP 95/69; PULSE 91; RESP 16; O2SAT 92
== END 2019-12-18 17:07 | disposition home or self-care (01) ==
PROVIDERS: Emergency Provider Emergency Medicine
DX: R07.89 Other chest pain (principal); R91.8 Other nonspecific abnormal finding of lung field; I25.10 Atherosclerotic heart disease of native coronary artery without angina pectoris; I25.2 Old myocardial infarction; Z95.5 Presence of coronary angioplasty implant and graft; J44.9 Chronic obstructive pulmonary disease, unspecified; Z86.711 Personal history of pulmonary embolism; C34.90 Malignant neoplasm of unspecified part of unspecified bronchus or lung; I49.1 Atrial premature depolarization; D64.9 Anemia, unspecified; Z79.01 Long term (current) use of anticoagulants; Z79.82 Long term (current) use of aspirin; Z79.899 Other long term (current) drug therapy; F17.200 Nicotine dependence, unspecified, uncomplicated
CPT/HCPCS: 36591; 71045; 71275; 80048; 84484; 85025; 93005; 96361; 96374; 96375; 99285; J7030; Q9967; A4216; J2405

== ENCOUNTER 2019-12-29 05:52 | Inpatient (IN) | payer BC, SELFPAY ==
[2017-01-12 13:36] VITALS: BMI 26.6
[2019-12-29] VITALS (20 sets, daily range): BP systolic 89–139; BP diastolic 42–98; PULSE 87–121; RESP 8–21; TEMP 36.1–37.1; O2SAT 92–100; BMI 21.2; BMI 21.4; BMI 21.5
--- NOTE | 2019-12-29 06:00 | RAD_ITS ---
STUDY: X-RAY CHEST REASON FOR EXAM: Male, 54 years old. chest pain and sob TECHNIQUE: AP COMPARISON: 12/18/2019. FINDINGS: Left PICC line is stable in positioning. Left lung remains clear. Focal opacity in the right peripheral lung consistent with small right pleural effusion. No pneumothorax visualized. Cardiac and mediastinal silhouettes are unchanged. There is no demonstrated abnormality of the visualized soft tissue structures of the upper abdomen. RAD/Chest 1 View (Portable) IMPRESSION: Stable chest. Stable right midlung opacity consistent with prior detected small pleural effusion in the fissure. Electronically Signed: Danielito Dykes, at 7:19 EST Tel , Service support ,
--- NOTE | 2019-12-29 06:20 | EKG12_ITS ---
Test Reason : DYSRHYTHMIA Blood Pressure : / mmHG Vent. Rate : 106 BPM Atrial Rate : 106 BPM P-R Int : 148 ms QRS Dur : 078 ms QT Int : 360 ms P-R-T Axes : 073 032 078 degrees QTc Int : 478 ms Sinus tachycardia with occasional Premature ventricular complexes Otherwise normal ECG When compared with ECG of 18-DEC-2019 14:19, Premature ventricular complexes are now Present Premature atrial complexes are no longer Present Confirmed by RUTH VENTURA, MALCOM ([id number]), editor city THANG ANGELA ([id number]) on 01/11/2020 2:13:35 PM Referred By: AKIKO Confirmed By:EB MIRANDA MD
[2019-12-29] MEDS: Aspirin 81 MG TAB.CHEW 324 MG PO (06:25)
--- NOTE | 2019-12-29 06:27 | ED.DCSUM_ITS ---
History of Present Illness Chief Complaint: Syncope Informant: Patient Narrative: 54-year-old male with lung cancer currently on chemotherapy with his last dose being on Tuesday presenting with right-sided chest pain. He states he always has chest pain here for this is where his cancer is. He is anticoagulated. He had a CTA performed on the which showed worsening of his mass however he said he had outpatient test with Dr. Can and they told him it had shrunk by 1 mm. Patient also states he is been thirsty has been unable to drink fluids because he just does not have an appetite. He is not vomiting. He states he urinated prior to arrival. He denies fever, chills, loss of taste or smell, vomiting, diarrhea. He states that his right gluteal area hurts. - Past Medical History (1) Alcohol abuse Status: Chronic (2) Atherosclerosis of coronary artery of [place] heart with angina pectoris Status: Chronic Comment: BMS-Prox and Distal RCA 12/23/16 (3) COPD (chronic obstructive pulmonary disease) Status: Chronic (4) Essential (primary) hypertension Status: Chronic (5) HLD (hyperlipidemia) Status: Chronic Past Medical History - Allergies and Home Meds Allergies/Adverse Reactions: Allergies No Known Allergies Allergy (Verified 12/29/19 05:59) Primary Care Physician: Care Physician,No Primary [Primary Care Provider] - Prior records reviewed: Yes Past Medical History: - - Reviewed in problem list Surgical History: - - PCI x 2, T+A, L inguinal hernia repair, status post left neck surgery for abscess, status post left inguinal hernia repair Lives: Alone Smoking Status: Light Smoker (<10/day) Drugs: None - Family History Maternal Family History: Family History (Last Reviewed 03/27/19 @ 18:19 by Mary Menjivar NP, DATA WAREHOUSING ENGINEER-C) Father Myocardial infarction, Onset Age: 36 Mother Myocardial infarction Cancer Family History: Reports: Cancer - breast, Heart Disease - LA Paternal Family History: Family History (Last Reviewed 03/27/19 @ 18:19 by Mary Menjivar NP, DATA WAREHOUSING ENGINEER-C) Father Myocardial infarction, Onset Age: 36 Mother Myocardial infarction Cancer Family History: Reports: - - Patient notes a paternal family history of heart disease, passing secondary to fatal LA at age 36. Sibling Family History: Family History (Last Reviewed 03/27/19 @ 18:19 by Mary Menjivar NP, DATA WAREHOUSING ENGINEER-C) Father Myocardial infarction, Onset Age: 36 Mother Myocardial infarction Cancer Family History: Reports: - - Patient notes a history of a sister who underwent a CABG early in life. Review of Systems General: Reports: - - Lightheaded and near syncopal. Denies: Chills, Fever, Malaise Eyes: Denies: Visual changes - bilaterally, Diplopia ENT: Reports: Sore throat. Denies: Rhinorrhea Cardiovascular: Reports: Chest pain - Right sided. Denies: Palpitations, Heart racing Respiratory: Denies: Dyspnea, Cough Gastrointestinal: Reports: Abdominal pain, Nausea, Vomiting Genitourinary: Denies: Dysuria, Hematuria Musculoskeletal: Reports: - - Right gluteal pain. Denies: Myalgias, Arthralgias Skin: Denies: Rash, Abscess Neurological: Reports: Weakness Physical Exam Vital Signs/Narrative: Vital Signs Temp Pulse Resp BP Pulse Ox 12/29/19 05:53 96.9 F L 121 H 18 104/76 99 Inital Vital Signs reviewed: Yes General: Well nourished, No Acute Distress Head: Normocephalic, Atraumatic Eyes: Perrl, EOMI. Negative for: Pale conjunctiva ENT: Moist mucous membranes, No rhinorrhea Cardiovascular: Regular rate, Regular rhythm Respiratory: No distress, CTA bilaterally Abdomen: Soft, Nontender Back: Nontender, Normal Inspection Extremities: Tenderness - Tenderness to palpation in the right gluteal area. Skin: Normal color, No rash Neurological: Alert, Oriented x3, Cranial nerves II-XII grossly intact Psychological: Normal affect, Normal Mood Diagnostic/Tx/Re-eval Clinical Impression(s) from Imaging Studies Chest X-Ray 12/29/19 06:00 IMPRESSION: Stable chest. Stable right midlung opacity consistent with prior detected small pleural effusion in the fissure. Electronically Signed: Danielito Dykes, at 7:19 EST Tel , Service support , Laboratory Data 12/29/19 12/29/19 12/29/19 06:15 06:15 06:15 WBC 3.4 L RBC 3.14 L Hgb 10.1 L Hct 30.5 L MCV 97.1 H MCH 32.2 H MCHC 33.1 RDW Std Deviation 77.1 H RDW Coeff of Radha 22.0 H Plt Count 103 L MPV 11.5 Immature Gran % (Auto) 3.900 H Neut % (Auto) 76.2 H Lymph % (Auto) 15.4 L [place] % (Auto) 1.5 Eos % (Auto) 1.5 Baso % (Auto) 1.5 H Absolute Neuts (auto) 2.6 Absolute Lymphs (auto) 0.52 L Nucleated RBC % 0 PT INR D-Dimer Quant (PE/DVT) 1.00 H* Sodium 133 L Potassium 3.4 L Chloride 99 Carbon Dioxide 26.0 Anion Gap 8 BUN 15 Creatinine 1.15 Estim Creat Clear Calc 77.79 Est GFR (MDRD) Af Amer 85 Est GFR (MDRD) Non-Af 70 BUN/Creatinine Ratio 13.0 Glucose 162 H Lactic Acid Calcium 9.1 Troponin I < 0.015 12/29/19 12/29/19 06:40 06:44 WBC RBC Hgb Hct MCV MCH MCHC RDW Std Deviation RDW Coeff of Radha Plt Count MPV Immature Gran % (Auto) Neut % (Auto) Lymph % (Auto) [place] % (Auto) Eos % (Auto) Baso % (Auto) Absolute Neuts (auto) Absolute Lymphs (auto) Nucleated RBC % PT 12.6 INR 1.0 D-Dimer Quant (PE/DVT) Sodium Potassium Chloride Carbon Dioxide Anion Gap BUN Creatinine Estim Creat Clear Calc Est GFR (MDRD) Af Amer Est GFR (MDRD) Non-Af BUN/Creatinine Ratio Glucose Lactic Acid 2.2 H* Calcium Troponin I - Rhythm Strip Rhythm Strip: Sinus Rhythm Rate: 106 - EKG Initial EKG Interpretation: Sinus Tachycardia, - - PVC's - Medical Decision Making 54-year-old male presenting with right-sided chest pain which she has had previously secondary to having right-sided hilar mass. Patient states he is not been able to drink much due to swallowing issues secondary to previous throat abscess. Patient denies any fever, chills, loss of taste or smell, cough. He states that prior to arrival he felt like he was going to faint so he squatted to the floor. He did not pass out or hit his head. On arrival he is tachycardic and hypothermic. Sepsis protocol was initiated. Since it is unknown if he has Covid?19 he was not given 30 cc/kg of IV fluids. Chest x-ray shows able right midlung opacity. Patient is leukopenic and lymphopenic as well as anemic which appears to be at his baseline. Covid swab is pending. Urinalysis is pending. Lactic acid is 2.2. Patient had orthostatic vitals but could not stand. He dropped into the 80s systolic just sitting up in bed. He was given fentanyl for pain due to his hypotension. Troponin is negative. EKG is sinus tachycardia at 106 bpm with PVCs but no ST elevations or depressions. Patient will be signed out to incoming physician for follow-up of CTA and pending lab work. I feel the patient likely will need to be admitted. Impression: 1. Near syncope 2. Orthostatic hypotension 3. Tachycardia 4. History of lung cancer 5. Lactic acidosis ED Disposition - Plan for ED Patient: Referrals: Care Physician,No Primary [Primary Care Provider] -
--- NOTE | 2019-12-29 06:32 | ED.RN ---
pt unwilling to do the standing part of orthostats.
[2019-12-29 06:33] LABS: Absolute Lymphocyte Count 0.52 X10^3/uL (0.83-4.51); Absolute Neutrophil Count 2.6 X10^3/uL (2.0-7.7); Basophil# 0.05 X10^3/uL; Basophil% 1.5 % (0-1); Eosinophil# 0.05 X10^3/uL; Eosinophils% 1.5 % (0-5); Hematocrit 30.5 % (40-54); Hemoglobin 10.1 g/dL (13.0-16.5); Lymphocyte # 0.52 X10^3/ul (4.0); Lymphocyte % 15.4 % (19-41); Mean Corp Hgb Conc 33.1 g/dL (32-36); Mean Corpuscular Hgb 32.2 pg (27.0-32.0); Mean Corpuscular Volume 97.1 fL (80-94); Mean Platelet Vol. 11.5 fl (6.2-12.0); Monocyte# 0.05 X10^3/uL; Monocyte% 1.5 % (0-10); NRBC Flagged by Analyzer 0 % (0-5); Neutrophil # 2.57 X10^3/uL (2.7-7.7); Neutrophil % 76.2 % (47-70); POSITIVE DIFFERENTIAL YES; POSITIVE MORPHOLOGY YES; Platelet Count 103 K/mm3 (150-450); RBC Distribution Width SD 77.1 fl (35.1-43.9); Red Blood Count 3.14 M/mm3 (4.6-6.2); White Blood Count 3.4 K/mm3 (4.4-11.0)
[2019-12-29 06:40] LABS: Anion Gap 8 (5-15); BUN 15 mg/dL (7-18); Calcium,Total 9.1 mg/dL (8.5-10.1); Chloride 99 mmol/L (98-107); Creatinine, Serum 1.15 mg/dL (0.70-1.30); EST Glomerular Filtration Rate 70 mL/min (>60); Est Glom Filt Rate - Afr Amer 85 mL/min (>60); Estimated Creatinine Clearance 77.79 ml/min; Glucose 162 mg/dL (74-106); Potassium 3.4 mmol/L (3.5-5.1); Sodium Level 133 mmol/L (136-145)
[2019-12-29 06:43] LABS: Differential Indicated SCAN CRITERIA MET
--- NOTE | 2019-12-29 07:03 | CT_ITS ---
STUDY: CTA CHEST REASON FOR EXAM: Male, 54 years old. RT SIDED CP, NEAR SYNCOPE EPISODE THIS AM, HX-LUNG CA, COPD, EMPHYSEMA, A-FIB, SIRS, HTN, ALCOHOL ABUSE, IN, HEART Stents, pe, NICOTINE DEPENDENCE RADIATION DOSAGE (If Supplied By Facility): CTDIvol = ( 8.96 ) mGy, DLP = ( 328.61 ) mGycm TECHNIQUE: The examination was performed with the intravenous administration of 100 mL of ISOVUE-370. Post-processing of the angiographic images was performed, with multiplanar reformation and MIP (maximum intensity projection) reconstruction. Individualized dose optimization techniques were used for this CT. COMPARISON: CTA chest 12/18/2019. FINDINGS: Left PICC line catheter tip is in the SVC near the right upper atrial chamber and unchanged. Normal enhancement of the main pulmonary artery and right and left pulmonary arteries. Normal enhancement of the bilateral peripheral pulmonary arteries. There is no demonstrated pulmonary embolism. Mild dilatation in the ascending aorta with a diameter of 3.9 cm versus 2.3 cm for the descending thoracic aorta. There is no demonstrated aortic dissection. Normal heart and pericardium. Right paratracheal mediastinal lymphadenopathy with cystic necrosis measures 4.8 x 4 x 5.5 cm. There is suspicious cystic necrosis. Right hilar lymphadenopathy measures 3.4 x 3.1 cm. Normal left hilum. Allowing for interobserver differences, these are unchanged. Normal visualized trachea and bronchi. The lungs are well expanded. New necrotizing pneumonia with traction bronchiectasis towards the right lung apex measures at least 5.5 x 5.3 cm. It is adjacent the paraseptal cysts in the anterior apical segment of the right upper lobe. There is increasing groundglass opacities in the right upper lobe. No suspicious pulmonary nodules. Decrease in right pleural fluid and fluid along the right major fissure. Normal chest wall structures. No acute osseous abnormality. Normal visualized upper abdomen. CT/CTA Chest W/WO Contrast IMPRESSION: 1. New necrotizing pneumonia with traction bronchiectasis in the right lung apex measuring at least 5.5 x 5.3 cm and abuts the paraseptal cysts of the right lung apex. 2. Increasing groundglass opacities in the right upper lobe. 3. Right paratracheal mediastinal lymphadenopathy with cystic necrosis measures at least 4.8 x 4 x 5.5 cm and the right hilar lymphadenopathy measures at least 3.4 x 3.1 cm. Allowing for interobserver differences, these are unchanged. 4. No CTA evidence of pulmonary thromboemboli or thoracic aortic dissection. 5. Mild dilatation of the ascending aorta with a diameter of 3.9 cm versus 2.3 cm for the descending thoracic aorta. This is unchanged. 6. Decreased right pleural fluid and fluid along the right major fissure. 7. No other additional findings or changes since 12/18/2019. Electronically Signed: David Jo MD at 8:37 EST , Service support ,
[2019-12-29 07:11] LABS: Prothrombin Time (Protime)PT. 12.6 SECONDS (11.7-14.9)
[2019-12-29] MEDS: 0.9% Normal Saline 1,000 ML 999 ML IV ×2 (07:13→08:32)
[2019-12-29 07:22] LABS: Lactic Acid 2.2 mmol/L (0.4-1.9)
[2019-12-29 07:48] LABS: Procalcitonin 0.14 ng/mL (0.00-0.09)
[2019-12-29] MEDS: fentaNYL 100 MCG/2 ML Ampul 50 MCG IV ×2 (07:48→09:43)
--- NOTE | 2019-12-29 08:36 | ED.RN ---
pt rude and argumentative. nothing staff does is good enough.
--- NOTE | 2019-12-29 09:01 | ED.RN ---
pt demanding to have o2. pt is 100% on RA. pt continues to demand o2, pt put on 1L
--- NOTE | 2019-12-29 09:06 | ED.RN ---
dr. calvo aware that the pt is requesting anxiety medications and that the pt would like to speak with him.
[2019-12-29 09:07] LABS: Differential Comment SCANNED
[2019-12-29 09:07] LABS: Bacteria 0 SEEN /hpf (None Seen); Mucous, Urine 0 SEEN /hpf (<or=2+)
[2019-12-29 09:08] LABS: Anisocytosis 2+; Macrocytosis 1+; Microcytosis 1+; Reactive Lymphocyte 1+
[2019-12-29 09:08] LABS: Color, Urine Yellow (Yellow); Glucose, Dipstick 100 mg/dl (Normal); Ketone-Dipstick 5 mg/dl (Negative); Leukocyte Esterase-Dipstick 25 /ul (Negative); Nitrite-Dipstick Negative (Negative); Occult Blood-Urine 10 /ul (Negative); Protein-Dipstick 100 mg/dl (Negative); Urine Bilirubin Dipstick Negative (Negative); Urine Clarity Clear (Clear); Urine Urobilinogen Normal (Normal)
[2019-12-29 09:11] LABS: Probe Check PASS; Specimen Processing Control PASS
[2019-12-29 09:17] LABS: Red Blood Cells-Urine 0-5 SEEN /hpf (0-5); Squamous Epithelial Cells - UA 0-5 SEEN /hpf (0-5); White Blood Cells 0-5 SEEN /hpf (0-5)
[2019-12-29] MEDS: LORazepam 2 MG/ML Syringe 1 MG IV (09:21)
--- NOTE | 2019-12-29 09:42 | PCM.HP.STD ---
Problem List (1) Elevated lactic acid level Status: Acute (2) PAF (paroxysmal atrial fibrillation) Status: Chronic (3) COPD (chronic obstructive pulmonary disease) Status: Chronic Qualifiers: COPD type: unspecified COPD Qualified Code(s): J44.9 - Chronic obstructive pulmonary disease, unspecified (4) Lung cancer Status: Chronic Qualifiers: Laterality: unspecified laterality Lung location: unspecified part of lung Qualified Code(s): C34.90 - Malignant neoplasm of unspecified part of unspecified bronchus or lung (5) Chest pain Status: Chronic Qualifiers: Chest pain type: unspecified Qualified Code(s): R07.9 - Chest pain, unspecified (6) Pharyngitis Status: Chronic Qualifiers: Pharyngitis/tonsillitis etiology: unspecified etiology Qualified Code(s): J02.9 - Acute pharyngitis, unspecified (7) Essential (primary) hypertension Status: Chronic (8) Nicotine dependence Status: Chronic Qualifiers: Substance use status: unspecified nicotine-induced disorder (9) HLD (hyperlipidemia) Status: Chronic Qualifiers: Hyperlipidemia type: unspecified Qualified Code(s): E78.5 - Hyperlipidemia, unspecified (10) Alcohol abuse Status: Chronic (11) NSTEMI (non-ST elevated myocardial infarction) Status: Chronic (12) Atherosclerosis of coronary artery of [place] heart with angina pectoris Status: Chronic Qualifiers: Coronary Disease-Associated Artery/Lesion type: unspecified vessel or lesion type Qualified Code(s): I25.119 - Atherosclerotic heart disease of [place] coronary artery with unspecified angina pectoris Comment: BMS-Prox and Distal RCA 12/23/16 (13) History of coronary artery stent placement Status: Chronic Comment: BMS-Prox and Distal RCA 12/23/16 (14) Necrotizing pneumonia Status: Acute History of Present Illness Date of Admission: 12/29/19 Chief Complaint: Near syncope and right-sided chest pain The patient is a 54 year old M with history of right lung cancer on chemotherapy, previous hospital admission between 11/15?11/18/1912/28/2023 severe sepsis with no clear source of infection came to ED with near syncope and severe right-sided chest pain. Patient had fourth round of chemo on past Tuesday about 5 days ago and after that he was feeling weak, dehydrated, loss of appetite and decreased oral intake. Today he felt dizzy, lightheaded and spinning of the head. He has chronic right-sided chest pain from cancer which got very severe in the last 2 to 3 days, 10/10 intensity, localized with no exacerbating or relieving factor. In ED, his blood pressure was on the lower side 97/60, heart rate 121, pulse ox 99% on room air respiratory rate 18 and was started on IV fluid normal saline for volume resuscitation. Labs showed pancytopenia with all 3 cell lines low. D-dimer elevated 1.0 lactic acid 2.2, K 3.4 and UA negative. COVID-19 PCR negative. Patient had chest x-ray and CTPA done. It shows new necrotizing pneumonia with traction bronchiectasis in right lung apex measuring 5.5 x 5.3 cm & 2 paraseptal cyst in the right apical segment. Right paratracheal mediastinal lymphadenopathy with cystic necrosis 4.8 x 4 x 5.5 cm and right hilar lymphadenopathy. Patient was given IV vancomycin and Zosyn and further admitted in ICU for ongoing management. Past Medical History Past Medical History (Chronic Problems): Chronic Problems (Last Updated 04/10/18 @ 11:33 by Raine Huber) PAF (paroxysmal atrial fibrillation) (Chronic) COPD (chronic obstructive pulmonary disease) (Chronic) Lung cancer (Chronic) Chest pain (Chronic) Pharyngitis (Chronic) Essential (primary) hypertension (Chronic) Nicotine dependence (Chronic) HLD (hyperlipidemia) (Chronic) Alcohol abuse (Chronic) NSTEMI (non-ST elevated myocardial infarction) (Chronic 04/07/18) Atherosclerosis of coronary artery of [place] heart with angina pectoris (Chronic) BMS-Prox and Distal RCA 12/23/16 History of coronary artery stent placement (Chronic 12/23/16) BMS-Prox and Distal RCA 12/23/16 Medical History: Medical History (Last Updated 04/10/18 @ 11:34 by Raine Huber) Essential (primary) hypertension (Chronic) I10 Nicotine dependence (Chronic) F17.200 HLD (hyperlipidemia) (Chronic) E78.5 Alcohol abuse (Chronic) F10.10 NSTEMI (non-ST elevated myocardial infarction) (Chronic) Onset Date: 04/07/18 I21.4 Atherosclerosis of coronary artery of [place] heart with angina pectoris (Chronic) I25.119 BMS-Prox and Distal RCA 12/23/16 Anxiety F41.9 Acute pulmonary embolism (Resolved) Onset Date: 04/08/18 I26.99 STEMI (ST elevation myocardial infarction) (Resolved) 12/23/16 STEMI (ST elevation myocardial infarction) I21.3 12/23/16 Noncompliance (Inactive) Z91.19 Allergies No Known Allergies Allergy (Verified 12/29/19 05:59) Home Medications: Ambulatory Orders Medication Instructions Recorded Aspirin [Aspirin, Baby] 162 mg PO DAILY@0800 10/03/17 Clonazepam [Klonopin] 0.5 mg PO Q8H PRN PRN 09/08/19 Escitalopram Oxalate [Lexapro] 10 mg PO DAILY 09/08/19 Folic Acid 1 mg PO DAILY 09/08/19 Morphine [Morphine IR] 15 mg PO Q4H PRN PRN 09/08/19 Metoprolol Tartrate [Lopressor 50 mg PO DAILY 10/28/19 (beta luis)] Albuterol IH (ProAir) [Proair Hfa] 1 - 2 puff INHALATION Q4H PRN PRN 10/30/19 #1 inhaler Apixaban [Eliquis] 5 mg PO BID #0 10/30/19 Gabapentin [Neurontin] 400 mg PO TIDCM #90 cap 10/30/19 Pantoprazole Sodium [Protonix] 40 mg PO BID #60 tab 10/30/19 Phenol/Sodium Phenolate 5 spray MM Q2H PRN PRN #1 bottle 10/30/19 [Chloraseptic ([facility])] Atorvastatin Calcium 80 mg PO DAILY 11/09/19 traZODone [Desyrel] 50 mg PO QHS 11/09/19 morphine SR tablet [Ms Contin] 15 mg BC TID 12/29/19 Surgical History: Surgical History (Last Updated 04/10/18 @ 11:33 by Raine Huber) History of coronary artery stent placement (Chronic) Onset Date: 12/23/16 Z95.5 BMS-Prox and Distal RCA 12/23/16 History of left heart catheterization Onset Date: 04/07/18 Z98.890 12/23/16- PCI with BM stent to prox RCA & distal RCA; 01/12/17- patent BM stents; Surgical History: - - PCI x 2, T+A, L inguinal hernia repair, status post left neck surgery for abscess, status post left inguinal hernia repair Psychiatric History: Anxiety, Depression Lives: Alone Smoking Status: Light Smoker (<10/day) Drugs: None - *Family History Sibling Family History: Family History (Last Reviewed 03/27/19 @ 18:19 by Mary Menjivar NP, HAND CLOTH CUTTER-C) Father Myocardial infarction, Onset Age: 36 Mother Myocardial infarction Cancer History Items: - - Patient notes a history of a sister who underwent a CABG early in life. Maternal Family History: Family History (Last Reviewed 03/27/19 @ 18:19 by Mary Menjivar NP, HAND CLOTH CUTTER-C) Father Myocardial infarction, Onset Age: 36 Mother Myocardial infarction Cancer History Items: Cancer - breast, Heart Disease - RI Paternal Family History: Family History (Last Reviewed 03/27/19 @ 18:19 by Mary Menjivar NP, HAND CLOTH CUTTER-C) Father Myocardial infarction, Onset Age: 36 Mother Myocardial infarction Cancer History Items: - - Patient notes a paternal family history of heart disease, passing secondary to fatal RI at age 36. Review of Systems Constitutional: Reports: Chills. Denies: Fever HEENT: Denies: Head Aches, Sinus Congestion, Sinus Drainage Cardiovascular: Reports: - - Chronic left vocal cord paralysis with hoarseness of voice. Denies: Chest Pain, Palpitations Respiratory: Reports: Shortness of breath upon exertion. Denies: Cough, Shortness of breath at rest, Sputum production Gastrointestinal: Denies: Abdominal Pain, Nausea, Vomiting Genitourinary: Denies: Dysuria, Frequency, Hematuria Musculoskeletal: Reports: Joint Pain - Right hip pain. Denies: Joint Tenderness Skin: Denies: Rash, Wounds Neurological: Denies: Numbness, Tingling, Focal weakness Psychiatric: Denies: Anxiety, Depression, Homicidal Ideations, Suicidal Ideations Hematologic/ Lymphatic: Denies: Easy Bruising, Easy Bleeding VTE Information - Inpt Only VTE Present on Admission: No VTE Mechan Device Prophylaxis: None VTE Pharm Prophylaxis ordered?: Yes Reason prophylaxis not ordered:: Procedure Not Indicated - On Eliquis - Physical Exam Vitals/I&O's: Vital Signs Temp Pulse Resp BP Pulse Ox 96.9 F L 96 18 97/60 100 12/29/19 05:53 12/29/19 08:43 12/29/19 05:53 12/29/19 08:43 12/29/19 09:03 Oxygen Delivery Method Room Air Weight: 165 lb 2.02 oz Body Mass Index (BMI) 21.2 Intake and Output for Last 24 Hours 12/27/19 12/28/19 12/29/19 23:59 23:59 23:59 Intake Total 1000 / 1000 Balance 1000 / 1000 General: Alert, Oriented x3, Cooperative HEENT: Atraumatic, PERRLA, EOMI, Normocephalic Oral: No Gingival or Mucosal Lesions/ Ulcerations, Dry Mucosa Neck: Supple, No JVD, Negative Carotid Bruits Lungs: - - Air entry diminished bilaterally. No crepitation or rhonchi. Pulse ox 99% on room air Cardiovascular: Regular rate, Regular Rhythm, Normal S1, Normal S2, No murmurs Abdomen: Bowel Sounds Present, Soft, Non Tender, Non-Distended Extremities: No edema, Capillary Refill Less than 3 Seconds Skin: No rashes, No breakdown Musculoskeletal: Arthritic Changes, - - . Mild weakness at the right hip joint. Tenderness at the right hip joint Neurological: Cranial nerves II-XII grossly intact, Deep Tendon Reflexes 2+/4 and Symmetrical, Neuro grossly intact Psych/Mental Status: Normal Affect, Appropriate Laboratory Results 12/29/19 06:15: WBC 3.4 L, RBC 3.14 L, Hgb 10.1 L, Hct 30.5 L, MCV 97.1 H, MCH 32.2 H, MCHC 33.1, RDW Std Deviation 77.1 H, RDW Coeff of Ardha 22.0 H, Plt Count 103 L, MPV 11.5, Immature Gran % (Auto) 3.900 H, Neut % (Auto) 76.2 H, Lymph % (Auto) 15.4 L, [place] % (Auto) 1.5, Eos % (Auto) 1.5, Baso % (Auto) 1.5 H, Absolute Neuts (auto) 2.6, Absolute Lymphs (auto) 0.52 L, Nucleated RBC % 0, Differential Comment SCANNED, Diff Path Review May foll, Reactive Lymphocytes 1+, Anisocytosis 2+, Microcytosis 1+, Macrocytosis 1+ 12/29/19 06:15: D-Dimer Quant (PE/DVT) 1.00 H* 12/29/19 06:15: Sodium 133 L, Potassium 3.4 L, Chloride 99, Carbon Dioxide 26.0, Anion Gap 8, BUN 15, Creatinine 1.15, Estim Creat Clear Calc 77.79, Est GFR (MDRD) Af Amer 85, Est GFR (MDRD) Non-Af 70, BUN/Creatinine Ratio 13.0, Glucose 162 H, Calcium 9.1, Troponin I < 0.015 12/29/19 06:40: Lactic Acid 2.2 H* 12/29/19 06:44: Procalcitonin 0.14 H 12/29/19 06:44: PT 12.6, INR 1.0 12/29/19 06:44: Sodium Pending, Potassium Pending, Chloride Pending, Carbon Dioxide Pending, Anion Gap Pending, BUN Pending, Creatinine Pending, Est GFR (MDRD) Af Amer Pending, Est GFR (MDRD) Non-Af Pending, BUN/Creatinine Ratio Pending, Glucose Pending, Calcium Pending, Total Bilirubin Pending, AST Pending, ALT Pending, Alkaline Phosphatase Pending, Total Protein Pending, Albumin Pending 12/29/19 07:00: Ethyl Alcohol 4.0 12/29/19 07:31: COVID-19 (LEONELA) Negative 12/29/19 08:50: Urine Color Yellow, Urine Clarity Clear, Urine pH 8.0, Ur Specific [place] 1.010, Urine Protein 100 H, Urine Glucose (UA) 100 H, Urine Ketones 5 H, Urine Occult Blood 10 H, Urine Nitrite Negative, Urine Bilirubin Negative, Urine Urobilinogen Normal, Ur Leukocyte Esterase 25 H, Urine RBC 0-5 SEEN, Urine WBC 0-5 SEEN, Ur Squamous Epith Cells 0-5 SEEN, Urine Bacteria 0 SEEN, Urine Mucus 0 SEEN Current Medications Piperacillin Sod/Tazobactam (Sod 4.5 gm/ Sodium Chloride) 100 mls @ 200 mls/hr IV X1 ONE Stop: 12/29/19 09:48 Vancomycin HCl 1,750 mg/ (Sodium Chloride) 535 mls @ 250 mls/hr IV X1 ONE Stop: 12/29/19 12:08 Assessment/Plan All Active Problems (Last Updated 04/10/18 @ 11:34 by Raine Huber) Elevated lactic acid level (Acute) Necrotizing pneumonia (Acute) Acute pulmonary embolism (Resolved 04/08/18) Chest pain (Resolved) Intermittent palpitations (Resolved) STEMI (ST elevation myocardial infarction) (Resolved) The patient is a 54 year old M with history of right lung cancer on chemotherapy, previous hospital admission between 11/15?11/18/2019 severe sepsis with no clear source of infection came to ED with near syncope and severe right-sided chest pain and CT chest finding suggestive of necrotizing pneumonia 1. Severe sepsis secondary to right apical necrotizing pneumonia with history of right lung cancer: Patient is being admitted in ICU. IV fluid resuscitation. Monitor intake and output. Repeat lactic acid. Pneumonia work-up including blood cultures x2, MRSA nasal screen, urinary antigens and sputum culture ordered. On broad-spectrum IV antibiotics vancomycin and Zosyn. CT chest and individually reviewed and discussed with the repairer auto clocks. It is significant for new necrotizing pneumonia 5.5 x 5.3 cm in right lung apex abating with paraseptal cyst of the right lung apex. Storage Architect consult requested. 2. Right lung cancer complicated with right paratracheal mediastinal lymphadenopathy with cystic necrosis and right hilar lymphadenopathy with chronic right-sided pleuritic chest pain: Being managed by a [facility] oncologist Dr. Can. Right fourth chemotherapy on 12/24/2019. Exact histology, biology and staging of cancer not known. Lung biopsy not available. Exact chemotherapy regimen also not known. Patient is on heavy dose of morphine at home. Morphine sustained-release 15 mg 3 times daily along with morphine IR 15 p.o. every 4 hourly as needed for severe pain. 3. Coronary artery disease status post stent, paroxysmal A. fib and non-STEMI history: Cardiac medications including Eliquis resumed 4. 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 Other comorbidities include hypertension, chronic cigarette/nicotine use under, dyslipidemia, chronic alcohol use disorder: Patient still smokes 5 cigarettes/day. Nicotine use. Last alcoholic drink about 2 and half weeks ago. Nicotine patch. Advised quitting cigarette use and alcohol use. 6. VTE prophylaxis: Patient is on Eliquis 5 mg twice daily for proximal A. fib Advanced directive: Patient has living will and power of home appraiser for health named Rose Gibbs, her sister. After discussion of procedures involved with full code, DNR CC arrest and DNR CC, the patient opted for full code. Patient does want artificial life support including intubation, tube feed, ventilator and/chest compression, central venous catheter, vasopressor and DC shock if needed Total time spent in [id number] encounter in discussion of advanced directive 16 minutes. Total time of the visit including total time spent in counseling or coordination of care, (more than 50% of the total time, spent in obtaining medical information from nurses and other ancillary care providers,explaining to the patient about labs, imaging, diagnosis and management), discussion with recruiting and selection consultant, review of labs and imaging is 30 minutes. Clinical Impression(s) from Imaging Studies Chest X-Ray 12/29/19 06:00 IMPRESSION: Stable chest. Stable right midlung opacity consistent with prior detected small pleural effusion in the fissure. Chest CTA 12/29/19 07:03 IMPRESSION: 1. New necrotizing pneumonia with traction bronchiectasis in the right lung apex measuring at least 5.5 x 5.3 cm and abuts the paraseptal cysts of the right lung apex. 2. Increasing groundglass opacities in the right upper lobe. 3. Right paratracheal mediastinal lymphadenopathy with cystic necrosis measures at least 4.8 x 4 x 5.5 cm and the right hilar lymphadenopathy measures at least 3.4 x 3.1 cm. Allowing for interobserver differences, these are unchanged. 4. No CTA evidence of pulmonary thromboemboli or thoracic aortic dissection. 5. Mild dilatation of the ascending aorta with a diameter of 3.9 cm versus 2.3 cm for the descending thoracic aorta. This is unchanged. 6. Decreased right pleural fluid and fluid along the right major fissure. 7. No other additional findings or changes since 12/18/2019. Inpatient E&M: 65880 Init Hosp L3 Procedures: 21132 Advncd Care Plan 30 Min
--- NOTE | 2019-12-29 09:49 | NURSING ---
pt continues to be argumentative. pt demands that medications be given in lower port of iv tubing. this RN put the medications of in the upper port.
--- NOTE | 2019-12-29 10:08 | ED.RN ---
PT VERY UPSET BECAUSE HE FEELS THAT HIS NURSE DID NOT GIVE HIM HIS PAIN MEDS. TRIED TO EXPLAIN HOW AND WHAT WAS GIVEN BUT PT REFUSES TO LISTEN AND STATES HE WANTS MORE PAIN MEDS AND HOW IT HAS TAKEN TOO LONG FOR HIS PAIN TO BE ADDRESSED. AGAIN ATTEMPTED TO TALK WITH THE PT BUT HE REFUSES TO LISTEN AND STATES HE WANTS A NEW NURSE. HIS NIRSE WENT IN AND ATTEMPTED TO EXPLAIN WHERE HIS MEDICATION WAS GIVEN. HE IS MAD THAT HIS PAIN MEDS WERE GIVEN IN THE FARTHEST PORT ON HIS IV FLUIDS. HE STATES HE WANTS ALL HIS MEDS TO BE GIVEN 8IN THE CLOSEST PORT FROM NOW ON SO HE GETS IT FASTER.
[2019-12-29 10:19] LABS: ALB/GLOB Ratio 0.7 RATIO (0.9-2.4); AST(SGOT) 14 U/L (15-37); Alanine Aminotransfer ALT/SGPT 15 U/L (16-61); Albumin, Serum 2.8 g/dL (3.2-5.0); Alkaline Phosphatase 89 U/L (45-117); Globulin 4.3 g/dL (2.2-4.2); Protein, Total 7.1 g/dL (6.4-8.2)
[2019-12-29 10:48] LABS: Reflex Lactate? Y
[2019-12-29 12:33] LABS: Lactic Acid 1.5 mmol/L (0.4-1.9)
--- NOTE | 2019-12-29 12:36 | PCM.RX.CS ---
Consult Pharmacy has been consulted to manage selected antiobiotic: Vancomycin Type of Consult: New start Suspected Infection: Pneumonia Prior Doses of Antibiotics Received/Current Regimen: Receive 1750mg IV x1 in E.R. starting at 11:41 today Labs: Sodium Cancelled 12/29/19 06:44 Potassium Cancelled 12/29/19 06:44 Chloride Cancelled 12/29/19 06:44 Carbon Dioxide Cancelled 12/29/19 06:44 Anion Gap Cancelled 12/29/19 06:44 BUN Cancelled 12/29/19 06:44 Creatinine Cancelled 12/29/19 06:44 Est GFR (MDRD) Af Amer Cancelled 12/29/19 06:44 Est GFR (MDRD) Non-Af Cancelled 12/29/19 06:44 BUN/Creatinine Ratio Cancelled 12/29/19 06:44 Glucose Cancelled 12/29/19 06:44 Weight used for dosin kg Estimated Creatinine Clearance: 78ml/min Goal Trough: 15-20 mcg/mL Pharmacy Plan for Drug Dosing: After the E.R. dose is finished, will continue with 1000mg IV q12h per [facility] dosing protocol. Will order a trough before the 4th total dose. Pharmacy Service will continue to monitor and adjust dosing as required. Follow-Up Labs: Trough Vancomycin Labs to be done on [date and time ordered]: 12/30/19 23:30
[2019-12-29 12:46] LABS: Magnesium 1.4 mg/dL (1.6-2.6)
[2019-12-29] MEDS: 0.9% Normal Saline 1,000 ML 100 ML IV ×2 (12:52→21:29)
[2019-12-29] MEDS: HYDROmorphone 1 MG/ML Syringe IV ×3 (12:53→21:24)
[2019-12-29] MEDS: morphine SR 15 MG Tablet PO ×2 (14:58→21:15)
[2019-12-29] MEDS: APIXABAN 5 MG TABLET PO ×2 (14:58→21:18)
[2019-12-29 15:18] LABS: M R Staph aureus DNA By PCR Negative (Negative); Probe Check PASS; Specimen Processing Control PASS
[2019-12-29] MEDS: Metoprolol(XL)Succ 25 MG Tablet PO (16:36)
[2019-12-29] MEDS: Gabapentin 400 MG Capsule PO (16:36)
[2019-12-29] MEDS: 0.9% Saline Lock 10 ML Syringe IV ×2 (17:32→21:24)
[2019-12-29] MEDS: Pantoprazole Sodium 40 MG Tablet PO (21:17)
[2019-12-29] MEDS: Atorvastatin Calcium 80 MG Tablet PO (21:18)
[2019-12-29] MEDS: traZODone 50 MG Tablet PO (21:18)
[2019-12-30] VITALS (27 sets, daily range): BP systolic 91–128; BP diastolic 50–79; PULSE 74–102; RESP 10–22; TEMP 36.2–36.7; O2SAT 90–96
[2019-12-30] MEDS: Vancomycin IV 1,000 MG/200 ML BAG 200 MG IV ×2 (00:50→11:47)
[2019-12-30] MEDS: HYDROmorphone 1 MG/ML Syringe IV ×6 (01:36→21:57)
[2019-12-30] MEDS: 0.9% Saline Lock 10 ML Syringe IV ×5 (01:37→21:57)
[2019-12-30] MEDS: LORazepam 2 MG/ML Syringe 1 MG IV ×3 (03:18→17:49)
[2019-12-30 03:31] LABS: Absolute Lymphocyte Count 0.24 X10^3/uL (0.83-4.51); Basophil# 0.04 X10^3/uL; Eosinophil# 0.03 X10^3/uL; Eosinophils% 2.2 % (0-5); Hematocrit 25.2 % (40-54); Hemoglobin 8.1 g/dL (13.0-16.5); Lymphocyte # 0.24 X10^3/ul (4.0); Lymphocyte % 17.8 % (19-41); Mean Corp Hgb Conc 32.1 g/dL (32-36); Mean Corpuscular Hgb 32.5 pg (27.0-32.0); Mean Corpuscular Volume 101.2 fL (80-94); Monocyte# 0.02 X10^3/uL; Monocyte% 1.5 % (0-10); NRBC Flagged by Analyzer 0 % (0-5); Neutrophil # 0.97 X10^3/uL (2.7-7.7); Neutrophil % 71.8 % (47-70); POSITIVE COUNT YES; POSITIVE DIFFERENTIAL YES; POSITIVE MORPHOLOGY YES; Platelet Count 65 K/mm3 (150-450); RBC Distribution Width CV 22.1 % (11.6-14.6); RBC Distribution Width SD 80.9 fl (35.1-43.9); Red Blood Count 2.49 M/mm3 (4.6-6.2)
[2019-12-30 03:43] LABS: Anion Gap 4 (5-15); BUN 13 mg/dL (7-18); BUN/Creat Ratio 16.8 RATIO (10-20); Calcium,Total 7.9 mg/dL (8.5-10.1); Chloride 105 mmol/L (98-107); Creatinine, Serum 0.78 mg/dL (0.70-1.30); EST Glomerular Filtration Rate 111 mL/min (>60); Est Glom Filt Rate - Afr Amer 134 mL/min (>60); Estimated Creatinine Clearance 119.47 ml/min; Glucose 82 mg/dL (74-106); Magnesium 1.5 mg/dL (1.6-2.6); Phosphorus 2.9 mg/dL (2.5-4.9); Potassium 3.4 mmol/L (3.5-5.1); Sodium Level 137 mmol/L (136-145)
[2019-12-30 04:03] LABS: Differential Indicated SCAN CRITERIA MET; White Blood Count 1.4 K/mm3 (4.4-11.0)
[2019-12-30 04:40] LABS: Anisocytosis 2+; Platelet Estimate MOD DEC (ADEQ)
[2019-12-30 04:41] LABS: Macrocytosis 1+
[2019-12-30] MEDS: morphine SR 15 MG Tablet PO ×3 (05:36→20:38)
--- NOTE | 2019-12-30 06:07 | PCM.CON.CC ---
Reason for Consult Date of Consultation: 12/30/19 Reason for Consultation: Severe sepsis, necrotizing pneumonia History of Present Illness: The patient is a 54-year-old male, with a history as outlined below, who presented to the emergency department on December 28 with complaints of dizziness/lightheadedness along with right hemithorax chest pain. The patient has a history of coronary artery disease status post PCI, questionable COPD of unknown severity, chronic tobacco dependency, chronic pain syndrome, anxiety/depression, and lung cancer which is currently being treated at [facility]. The patient does continue to smoke 5 cigarettes/day. He does report the presence of a cough with only mild, nonpurulent sputum production. On presentation to the emergency department, the patient was noted to be afebrile but was tachycardic and hemodynamically stable. Laboratory evaluation revealed evidence of pancytopenia. D-dimer was elevated to 1.0. Chemistry profile was notable for a sodium of 133 and potassium of 3.4. Lactate was elevated to 2.2. Magnesium was low at 1.4. Procalcitonin was noted to be 0.14. Troponin was negative. Coronavirus PCR was negative. MRSA screen was negative. CTA chest was obtained and failed to demonstrate evidence of pulmonary embolism. Paratracheal and hilar adenopathy was noted. A new right upper lobe necrotizing pneumonia was noted. The patient received supplemental IV fluids along with antimicrobials. He was subsequently admitted to the medical intensive care unit for further management. Past Medical History Past Medical History (Chronic Problems): Chronic Problems (Last Updated 04/10/18 @ 11:33 by Raine Huber) PAF (paroxysmal atrial fibrillation) (Chronic) COPD (chronic obstructive pulmonary disease) (Chronic) Lung cancer (Chronic) Chest pain (Chronic) Pharyngitis (Chronic) Essential (primary) hypertension (Chronic) Nicotine dependence (Chronic) HLD (hyperlipidemia) (Chronic) Alcohol abuse (Chronic) NSTEMI (non-ST elevated myocardial infarction) (Chronic 04/07/18) Atherosclerosis of coronary artery of [place] heart with angina pectoris (Chronic) BMS-Prox and Distal RCA 12/23/16 History of coronary artery stent placement (Chronic 12/23/16) BMS-Prox and Distal RCA 12/23/16 Medical History: Medical History (Last Updated 04/10/18 @ 11:34 by Raine Huber) Essential (primary) hypertension (Chronic) I10 Nicotine dependence (Chronic) F17.200 HLD (hyperlipidemia) (Chronic) E78.5 Alcohol abuse (Chronic) F10.10 NSTEMI (non-ST elevated myocardial infarction) (Chronic) Onset Date: 04/07/18 I21.4 Atherosclerosis of coronary artery of [place] heart with angina pectoris (Chronic) I25.119 BMS-Prox and Distal RCA 12/23/16 Anxiety F41.9 Acute pulmonary embolism (Resolved) Onset Date: 04/08/18 I26.99 STEMI (ST elevation myocardial infarction) (Resolved) 12/23/16 STEMI (ST elevation myocardial infarction) I21.3 12/23/16 Noncompliance (Inactive) Z91.19 Allergies No Known Allergies Allergy (Verified 12/29/19 05:59) Home Medications: Ambulatory Orders Medication Instructions Recorded Aspirin [Aspirin, Baby] 162 mg PO DAILY@0800 10/03/17 Clonazepam [Klonopin] 0.5 mg PO Q8H PRN PRN 09/08/19 Escitalopram Oxalate [Lexapro] 10 mg PO DAILY 09/08/19 Folic Acid 1 mg PO DAILY 09/08/19 Morphine [Morphine IR] 15 mg PO Q4H PRN PRN 09/08/19 Metoprolol Tartrate [Lopressor 50 mg PO DAILY 10/28/19 (beta luis)] Albuterol IH (ProAir) [Proair Hfa] 1 - 2 puff INHALATION Q4H PRN PRN 10/30/19 #1 inhaler Apixaban [Eliquis] 5 mg PO BID #0 10/30/19 Gabapentin [Neurontin] 400 mg PO TIDCM #90 cap 10/30/19 Pantoprazole Sodium [Protonix] 40 mg PO BID #60 tab 10/30/19 Phenol/Sodium Phenolate 5 spray MM Q2H PRN PRN #1 bottle 10/30/19 [Chloraseptic (BKC)] Atorvastatin Calcium 80 mg PO DAILY 11/09/19 traZODone [Desyrel] 50 mg PO QHS 11/09/19 morphine SR tablet [Ms Contin] 15 mg BC TID 12/29/19 Surgical History: Surgical History (Last Updated 04/10/18 @ 11:33 by Raine Huber) History of coronary artery stent placement (Chronic) Onset Date: 12/23/16 Z95.5 BMS-Prox and Distal RCA 12/23/16 History of left heart catheterization Onset Date: 04/07/18 Z98.890 12/23/16- PCI with BM stent to prox RCA & distal RCA; 01/12/17- patent BM stents; Surgical History: - - PCI x 2, T+A, L inguinal hernia repair, status post left neck surgery for abscess, status post left inguinal hernia repair Psychiatric History: Anxiety, Depression Lives: Alone Smoking Status: Light Smoker (<10/day) Drugs: None - *Family History Sibling Family History: Family History (Last Reviewed 03/27/19 @ 18:19 by Mary Menjivar NP, GENERAL DUTY NURSE-C) Father Myocardial infarction, Onset Age: 36 Mother Myocardial infarction Cancer History Items: - - Patient notes a history of a sister who underwent a CABG early in life. Maternal Family History: Family History (Last Reviewed 03/27/19 @ 18:19 by Mary Menjivar NP, GENERAL DUTY NURSE-C) Father Myocardial infarction, Onset Age: 36 Mother Myocardial infarction Cancer History Items: Cancer - breast, Heart Disease - [place] Paternal Family History: Family History (Last Reviewed 03/27/19 @ 18:19 by Mary Menjivar NP, GENERAL DUTY NURSE-C) Father Myocardial infarction, Onset Age: 36 Mother Myocardial infarction Cancer History Items: - - Patient notes a paternal family history of heart disease, passing secondary to fatal [place] at age 36. Review of Systems Constitutional: Denies: Chills, Fever Eyes: Denies: Blurred vision, Double vision HEENT: Denies: Head Aches, Sinus Congestion, Sinus Drainage Cardiovascular: Reports: Chest Pain, Light Headedness Respiratory: Reports: Cough. Denies: Sputum production Gastrointestinal: Denies: Abdominal Pain, Nausea, Vomiting Genitourinary: Denies: Dysuria Musculoskeletal: Denies: Joint Pain, Joint Tenderness Skin: Denies: Rash, Wounds Neurological: Denies: Numbness, Tingling, Focal weakness Psychiatric: Denies: Anxiety, Depression, Homicidal Ideations, Suicidal Ideations Hematologic/ Lymphatic: Denies: Easy Bruising, Easy Bleeding Patient Problems: Active and Suspected Problems (Last Updated 04/10/18 @ 11:34 by Raine Huber) Elevated lactic acid level (Acute) Necrotizing pneumonia (Acute) Objective: The patient's most recent lab work, culture data and imaging studies have all been personally reviewed. Strep and urine Legionella antigens were negative. Respiratory viral panel was negative. Blood and urine cultures are pending. - Physical Exam Vitals/I&O's: Vital Signs Temp Pulse Resp BP Pulse Ox 98.1 F 76 16 100/65 94 12/30/19 00:00 12/30/19 04:00 12/30/19 04:00 12/30/19 04:00 12/30/19 04:00 Oxygen Delivery Method Room Air Weight: 174 lb 9.698 oz Body Mass Index (BMI) 21.4 Intake and Output for Last 24 Hours 12/28/19 12/29/19 12/30/19 23:59 23:59 23:59 Intake Total 4201.67 / 4201.67 425 / 425 Output Total 1225 / 1225 1100 / 1100 Balance 2976.67 / 2976.67 -675 / -675 General: Alert, Cooperative, No apparent distress HEENT: Atraumatic, PERRLA, Normocephalic Oral: No Gingival or Mucosal Lesions/ Ulcerations Neck: Supple, No Nodes, Trachea Midline Lungs: No rhonchi, No wheeze, No rales, Diminished Cardiovascular: Regular rate, Regular Rhythm, Normal S1, Normal S2, No murmurs Abdomen: Bowel Sounds Present, Soft, Non Tender Extremities: No clubbing, No cyanosis, No edema Skin: No breakdown Musculoskeletal: No Tenderness to Palpation of Joints or Extremities Lymphatic: No Cervical, Supraclavicular, or Inguinal Adenopathy Neurological: Cranial nerves II-XII grossly intact, Neuro grossly intact Psych/Mental Status: Normal Affect, Appropriate Labs (Last 48 Hours) 12/29/19 12/29/19 12/29/19 06:15 06:15 06:15 WBC 3.4 L RBC 3.14 L Hgb 10.1 L Hct 30.5 L MCV 97.1 H MCH 32.2 H MCHC 33.1 RDW Std Deviation 77.1 H RDW Coeff of Radha 22.0 H Plt Count 103 L MPV 11.5 Immature Gran % (Auto) 3.900 H Neut % (Auto) 76.2 H Lymph % (Auto) 15.4 L [place] % (Auto) 1.5 Eos % (Auto) 1.5 Baso % (Auto) 1.5 H Absolute Neuts (auto) 2.6 Absolute Lymphs (auto) 0.52 L Nucleated RBC % 0 Differential Comment SCANNED Diff Path Review May foll Reactive Lymphocytes 1+ Platelet Estimate Anisocytosis 2+ Microcytosis 1+ Macrocytosis 1+ PT INR D-Dimer Quant (PE/DVT) 1.00 H* Sodium 133 L Potassium 3.4 L Chloride 99 Carbon Dioxide 26.0 Anion Gap 8 BUN 15 Creatinine 1.15 Estim Creat Clear Calc 77.79 Est GFR (MDRD) Af Amer 85 Est GFR (MDRD) Non-Af 70 BUN/Creatinine Ratio 13.0 Glucose 162 H Lactic Acid Calcium 9.1 Phosphorus Magnesium Total Bilirubin 0.70 AST 14 L ALT 15 L Alkaline Phosphatase 89 Troponin I < 0.015 Total Protein 7.1 Albumin 2.8 L Globulin 4.3 H Albumin/Globulin Ratio 0.7 L Procalcitonin Urine Color Urine Clarity Urine pH Ur Specific [place] Urine Protein Urine Glucose (UA) Urine Ketones Urine Occult Blood Urine Nitrite Urine Bilirubin Urine Urobilinogen Ur Leukocyte Esterase Urine RBC Urine WBC Ur Squamous Epith Cells Urine Bacteria Urine Mucus Ethyl Alcohol COVID-19 (LEONELA) MRSA (PCR) 12/29/19 12/29/19 12/29/19 06:15 06:40 06:44 WBC RBC Hgb Hct MCV MCH MCHC RDW Std Deviation RDW Coeff of Radha Plt Count MPV Immature Gran % (Auto) Neut % (Auto) Lymph % (Auto) [place] % (Auto) Eos % (Auto) Baso % (Auto) Absolute Neuts (auto) Absolute Lymphs (auto) Nucleated RBC % Differential Comment Diff Path Review Reactive Lymphocytes Platelet Estimate Anisocytosis Microcytosis Macrocytosis PT INR D-Dimer Quant (PE/DVT) Sodium Potassium Chloride Carbon Dioxide Anion Gap BUN Creatinine Estim Creat Clear Calc Est GFR (MDRD) Af Amer Est GFR (MDRD) Non-Af BUN/Creatinine Ratio Glucose Lactic Acid 2.2 H* Calcium Phosphorus Magnesium 1.4 L Total Bilirubin AST ALT Alkaline Phosphatase Troponin I Total Protein Albumin Globulin Albumin/Globulin Ratio Procalcitonin 0.14 H Urine Color Urine Clarity Urine pH Ur Specific [place] Urine Protein Urine Glucose (UA) Urine Ketones Urine Occult Blood Urine Nitrite Urine Bilirubin Urine Urobilinogen Ur Leukocyte Esterase Urine RBC Urine WBC Ur Squamous Epith Cells Urine Bacteria Urine Mucus Ethyl Alcohol COVID-19 (LEONELA) MRSA (PCR) 12/29/19 12/29/19 12/29/19 06:44 06:44 07:00 WBC RBC Hgb Hct MCV MCH MCHC RDW Std Deviation RDW Coeff of Radha Plt Count MPV Immature Gran % (Auto) Neut % (Auto) Lymph % (Auto) [place] % (Auto) Eos % (Auto) Baso % (Auto) Absolute Neuts (auto) Absolute Lymphs (auto) Nucleated RBC % Differential Comment Diff Path Review Reactive Lymphocytes Platelet Estimate Anisocytosis Microcytosis Macrocytosis PT 12.6 INR 1.0 D-Dimer Quant (PE/DVT) Sodium Cancelled Potassium Cancelled Chloride Cancelled Carbon Dioxide Cancelled Anion Gap Cancelled BUN Cancelled Creatinine Cancelled Estim Creat Clear Calc Cancelled Est GFR (MDRD) Af Amer Cancelled Est GFR (MDRD) Non-Af Cancelled BUN/Creatinine Ratio Cancelled Glucose Cancelled Lactic Acid Calcium Cancelled Phosphorus Magnesium Total Bilirubin Cancelled AST Cancelled ALT Cancelled Alkaline Phosphatase Cancelled Troponin I Total Protein Cancelled Albumin Cancelled Globulin Cancelled Albumin/Globulin Ratio Cancelled Procalcitonin Urine Color Urine Clarity Urine pH Ur Specific [place] Urine Protein Urine Glucose (UA) Urine Ketones Urine Occult Blood Urine Nitrite Urine Bilirubin Urine Urobilinogen Ur Leukocyte Esterase Urine RBC Urine WBC Ur Squamous Epith Cells Urine Bacteria Urine Mucus Ethyl Alcohol 4.0 COVID-19 (LEONELA) MRSA (PCR) 12/29/19 12/29/19 12/29/19 07:31 08:50 12:00 WBC RBC Hgb Hct MCV MCH MCHC RDW Std Deviation RDW Coeff of Radha Plt Count MPV Immature Gran % (Auto) Neut % (Auto) Lymph % (Auto) [place] % (Auto) Eos % (Auto) Baso % (Auto) Absolute Neuts (auto) Absolute Lymphs (auto) Nucleated RBC % Differential Comment Diff Path Review Reactive Lymphocytes Platelet Estimate Anisocytosis Microcytosis Macrocytosis PT INR D-Dimer Quant (PE/DVT) Sodium Potassium Chloride Carbon Dioxide Anion Gap BUN Creatinine Estim Creat Clear Calc Est GFR (MDRD) Af Amer Est GFR (MDRD) Non-Af BUN/Creatinine Ratio Glucose Lactic Acid 1.5 Calcium Phosphorus Magnesium Total Bilirubin AST ALT Alkaline Phosphatase Troponin I Total Protein Albumin Globulin Albumin/Globulin Ratio Procalcitonin Urine Color Yellow Urine Clarity Clear Urine pH 8.0 Ur Specific [place] 1.010 Urine Protein 100 H Urine Glucose (UA) 100 H Urine Ketones 5 H Urine Occult Blood 10 H Urine Nitrite Negative Urine Bilirubin Negative Urine Urobilinogen Normal Ur Leukocyte Esterase 25 H Urine RBC 0-5 SEEN Urine WBC 0-5 SEEN Ur Squamous Epith Cells 0-5 SEEN Urine Bacteria 0 SEEN Urine Mucus 0 SEEN Ethyl Alcohol COVID-19 (LEONELA) Negative MRSA (PCR) 12/29/19 12/30/19 12/30/19 14:00 03:20 03:20 WBC 1.4 L* RBC 2.49 L Hgb 8.1 L Hct 25.2 L MCV 101.2 H MCH 32.5 H MCHC 32.1 RDW Std Deviation 80.9 H RDW Coeff of Radha 22.1 H Plt Count 65 L MPV 11.0 Immature Gran % (Auto) 3.700 H Neut % (Auto) 71.8 H Lymph % (Auto) 17.8 L [place] % (Auto) 1.5 Eos % (Auto) 2.2 Baso % (Auto) 3.0 H Absolute Neuts (auto) 1.0 L Absolute Lymphs (auto) 0.24 L Nucleated RBC % 0 Differential Comment COMMENT Diff Path Review May foll Reactive Lymphocytes Platelet Estimate MOD DEC Anisocytosis 2+ Microcytosis Macrocytosis 1+ PT INR D-Dimer Quant (PE/DVT) Sodium 137 Potassium 3.4 L Chloride 105 Carbon Dioxide 28.0 Anion Gap 4 L BUN 13 Creatinine 0.78 Estim Creat Clear Calc 119.47 Est GFR (MDRD) Af Amer 134 Est GFR (MDRD) Non-Af 111 BUN/Creatinine Ratio 16.8 Glucose 82 Lactic Acid Calcium 7.9 L Phosphorus 2.9 Magnesium 1.5 L Total Bilirubin AST ALT Alkaline Phosphatase Troponin I Total Protein Albumin Globulin Albumin/Globulin Ratio Procalcitonin Urine Color Urine Clarity Urine pH Ur Specific [place] Urine Protein Urine Glucose (UA) Urine Ketones Urine Occult Blood Urine Nitrite Urine Bilirubin Urine Urobilinogen Ur Leukocyte Esterase Urine RBC Urine WBC Ur Squamous Epith Cells Urine Bacteria Urine Mucus Ethyl Alcohol COVID-19 (LEONELA) MRSA (PCR) Negative Microbiology 12/29/19 07:31 Mucosa - Nose Respiratory Panel (PCR) - Final 12/29/19 14:00 Urine, Clean Catch Legionella Antigen - Final 12/29/19 14:00 Urine, Clean Catch Streptococcus pneumoniae Antigen (M - Final Clinical Impression(s) from Imaging Studies Chest X-Ray 12/29/19 06:00 IMPRESSION: Stable chest. Stable right midlung opacity consistent with prior detected small pleural effusion in the fissure. Electronically Signed: Danielito Randallassen, at 7:19 EST Tel , Service support , Chest CTA 12/29/19 07:03 IMPRESSION: 1. New necrotizing pneumonia with traction bronchiectasis in the right lung apex measuring at least 5.5 x 5.3 cm and abuts the paraseptal cysts of the right lung apex. 2. Increasing groundglass opacities in the right upper lobe. 3. Right paratracheal mediastinal lymphadenopathy with cystic necrosis measures at least 4.8 x 4 x 5.5 cm and the right hilar lymphadenopathy measures at least 3.4 x 3.1 cm. Allowing for interobserver differences, these are unchanged. 4. No CTA evidence of pulmonary thromboemboli or thoracic aortic dissection. 5. Mild dilatation of the ascending aorta with a diameter of 3.9 cm versus 2.3 cm for the descending thoracic aorta. This is unchanged. 6. Decreased right pleural fluid and fluid along the right major fissure. 7. No other additional findings or changes since 12/18/2019. Electronically Signed: David Jo MD at 8:37 EST , Service support , Current Medications Acetaminophen (Acetaminophen 325 Mg Tablet) 650 mg PO Q6H PRN PRN PRN Reason: Pain Score 1-10/Temp > 100.7 F Al Hydroxide/Mg Hydroxide (Mag Hydrox/Al Hydrox/Simeth 30 Ml Udc) 30 ml PO Q6H PRN PRN PRN Reason: Gastric Burning Albuterol/Ipratropium (Ipratropium/Albuterol Sulfate 3 Ml Ampul.Neb) 3 ml INHALATION Q4H.RT PRN PRN Reason: sob Apixaban (Apixaban 5 Mg Tablet) 5 mg PO BID LIONEL Last Admin: 12/29/19 21:18 Dose: 5 mg Documented by: Aspirin (Aspirin 81 Mg Tab.Chew) 162 mg PO DAILY@0800 [facility] Atorvastatin Calcium (Atorvastatin Calcium 80 Mg Tablet) 80 mg PO DAILY@2200 [facility] Last Admin: 12/29/19 21:18 Dose: 80 mg Documented by: Bisacodyl (Bisacodyl 5 Mg Tablet) 5 mg PO DAILY PRN PRN PRN Reason: Constipation Escitalopram Oxalate (Escitalopram Oxalate 10 Mg Tablet) 10 mg PO DAILY [facility] Folic Acid (Folic Acid 1 Mg Tablet) 1 mg PO DAILYCM [facility] Gabapentin (Gabapentin 400 Mg Capsule) 400 mg PO TIDCM [facility] Last Admin: 12/29/19 16:36 Dose: 400 mg Documented by: Guaifenesin (Guaifenesin 1,200 Mg Tablet) 1,200 mg PO BID [facility] Last Admin: 12/29/19 21:18 Dose: Not Given Documented by: Heparin Sodium (Beef Lung) (Heparin Pf Lock 10 Units/Ml 50 Units/5 Ml Syringe) 50 units IV UD PRN PRN Reason: Port-a-Cath (VAD)Heparin Flush Hydromorphone HCl (Hydromorphone 1 Mg/Ml Syringe) 1 mg IV Q4H PRN PRN PRN Reason: Pain Score 6-10 Last Admin: 12/30/19 05:37 Dose: 1 mg Documented by: Sodium Chloride () 1,000 mls @ 100 mls/hr IV .Q10H [facility] Stop: 12/30/19 07:49 Last Admin: 12/29/19 21:29 Dose: 100 mls/hr Documented by: Piperacillin Sod/Tazobactam (Sod 3.375 gm/ Sodium Chloride) 50 mls @ 12.5 mls/hr IV Q8 [facility] Stop: 01/05/20 14:01 Last Admin: 12/30/19 05:38 Dose: 12.5 mls/hr Documented by: Vancomycin IV Pharmacy to Dose (1 ea/ Sodium Chloride) 500 mls @ 250 mls/hr IV DAILY [facility]; Protocol Vancomycin HCl (Vancomycin) 1,000 mg in 200 mls @ 200 mls/hr IV Q12H [facility] Last Infusion: 12/30/19 02:02 Dose: Infused Documented by: Lorazepam (Lorazepam 2 Mg/Ml Syringe) 1 mg IV Q6H PRN PRN PRN Reason: ANXIETY Last Admin: 12/30/19 03:18 Dose: 1 mg Documented by: Metoprolol Succinate (Metoprolol(Xl)Succ 25 Mg Tablet) 25 mg PO DAILY [facility] Last Admin: 12/29/19 16:36 Dose: 25 mg Documented by: Morphine Sulfate (Morphine Sr 15 Mg Tablet) 15 mg PO TID [facility] Last Admin: 12/30/19 05:36 Dose: 15 mg Documented by: Nitroglycerin (Nitroglycerin (Inpatient Use) 0.4 Mg Tab.Subl) 0.4 mg SUBLINGUAL Q5M PRN PRN Reason: CARDIAC/CHEST PAIN Ondansetron HCl (Ondansetron 4 Mg/2 Ml Vial) 4 mg IV Q8H PRN PRN PRN Reason: NAUSEA/VOMITING Oxycodone HCl (Oxycodone 5 Mg Tablet) 5 mg PO Q4H PRN PRN PRN Reason: Pain Score 4-5 Pantoprazole Sodium (Pantoprazole Sodium 40 Mg Tablet) 40 mg PO BID [facility] Last Admin: 12/29/19 21:17 Dose: 40 mg Documented by: Phenol/Menthol (Phenol/Sodium Phenolate 180ml) 5 spray MM Q2H PRN PRN PRN Reason: SORE THROAT Prochlorperazine Edisylate (Prochlorperazine 10 Mg/2 Ml Vial) 5 mg IV Q4H PRN PRN PRN Reason: Breakthrough Nausea/Vomiting Psyllium Hydrophilic Mucilloid (Psyllium 1 Packet) 1 packet PO DAILY [facility] Senna/Docusate Sodium (Senna/Docusate Sodium 1 Tablet) 2 tablet PO BID [facility] Last Admin: 12/29/19 21:19 Dose: Not Given Documented by: Sodium Chloride (0.9% Saline Lock 10 Ml Syringe) 10 - 40 ml IV UD PRN PRN Reason: Port-a-Cath (VAD) Flush Last Admin: 12/30/19 05:37 Dose: 20 ml Documented by: Sodium Chloride (0.9 % Nacl (Sterile) Posiflush 10 Ml) 10 - 40 ml IV UD PRN PRN Reason: Port access or dressing change Trazodone HCl (Trazodone 50 Mg Tablet) 50 mg PO QHS [facility] Last Admin: 12/29/19 21:18 Dose: 50 mg Documented by: Zolpidem Tartrate (Zolpidem Tartrate 5 Mg Tablet) 5 mg PO QHS PRN PRN PRN Reason: INSOMNIA Assessment/Plan Active and Suspected Problems (Last Updated 04/10/18 @ 11:34 by Raine Huber) Elevated lactic acid level (Acute) Necrotizing pneumonia (Acute) RECOMMENDATIONS: 1. Continue broad-spectrum antimicrobials as ordered. 2. Obtain and send sputum for culture. 3. Start Granix today. 4. Continue baseline, outpatient pain regimen. 5. Encourage incentive spirometer use and mobilize patient as tolerated. 6. Obtain speech therapy evaluation over concerns for possible aspiration. IMPRESSIONS: 1. Chest pain/necrotizing pneumonia Unclear etiology, although suspect related to underlying lung cancer and/or necrotizing pneumonia. Continue current supportive measures with consideration for cardiology consultation, if clinically indicated. Continue baseline, outpatient pain control regimen. Continue antimicrobials as ordered. The patient is currently maintaining appropriate oxygen saturations on room air. Infectious diseases consultation is pending. 2. Pancytopenia/history of lung cancer The patient is currently under the management of oncology at [facility], having last received chemotherapy earlier in the week. Recommend continued outpatient follow-up. Consider starting Granix today. 3. Questionable COPD of unknown severity/chronic tobacco dependency The patient has a self-reported history of COPD of unknown severity along with an extensive tobacco abuse history. Tobacco cessation counseling was provided. Nicotine replacement therapy can be utilized while the patient is admitted to the hospital. 4. History of coronary artery disease status post PCI/hypertension/hyperlipidemia/chronic pain syndrome/anxiety/depression Complicates care, management, recovery and prognosis. Recommend continuing outpatient pain and anxiety regimen. This note was generated with [employer] dictation software. It may contain incorrect words, spelling, and punctuation that were not noted in checking the note before signing. Inpatient E&M: 73338 Init Hosp L3
--- NOTE | 2019-12-30 08:55 | PCM.PN.HOSP ---
Patient Problems: Active and Suspected Problems (Last Updated 04/10/18 @ 11:34 by Raine Huber) Elevated lactic acid level (Acute) Necrotizing pneumonia (Acute) Reason for Visit: Follow-up for severe sepsis due to necrotizing pneumonia with history of lung cancer Objective: Patient has been asking constantly Dilaudid even with before discharge patient is also visited Yesterday afternoon and was demanding IV antibiotics. Was trying to rip off the IV line ripped off his IV line. No fever no chills. Pulse ox 93% on room air. Heart rate and blood pressure controlled. Sinus rhythm with PVCs on cafeteria monitor Physical exam General: Alert, Oriented x3, Cooperative HEENT: Atraumatic, PERRLA, EOMI, Normocephalic Oral: No Gingival or Mucosal Lesions/ Ulcerations Neck: Supple, No JVD, Negative Carotid Bruits Lungs: Air entry diminished in bilateral lung bases. No crepitation/rhonchi. No hypoxia or tachypnea Cardiovascular: Regular rate, Regular Rhythm, Normal S1, Normal S2, No murmurs Abdomen: Bowel Sounds Present, Soft, Non Tender, Non-Distended : No renal angle tenderness. No suprapubic tenderness. Extremities: No edema, Capillary Refill Less than 3 Seconds Skin: No rashes, No breakdown Musculoskeletal: No Tenderness to Palpation of Joints or Extremities Neurological: Cranial nerves II-XII grossly intact, Deep Tendon Reflexes 2+/4 and Symmetrical, Neuro grossly intact Psych/Mental Status: Normal Affect, Appropriate. Vitals/I&O's: Vital Signs Temp Pulse Resp BP Pulse Ox 98.1 F 75 12 91/64 93 12/30/19 00:00 12/30/19 07:27 12/30/19 06:00 12/30/19 07:27 12/30/19 07:27 Oxygen Delivery Method Room Air Weight: 174 lb 9.698 oz Body Mass Index (BMI) 21.4 Intake and Output for Last 24 Hours 12/28/19 12/29/19 12/30/19 23:59 23:59 23:59 Intake Total 4201.67 / 4201.67 1425 / 1425 Output Total 1225 / 1225 1100 / 1100 Balance 2976.67 / 2976.67 325 / 325 Microbiology Past 72 Hours 12/29/19 07:31 Mucosa - Nose Respiratory Panel (PCR) - Final 12/29/19 14:00 Urine, Clean Catch Legionella Antigen - Final 12/29/19 14:00 Urine, Clean Catch Streptococcus pneumoniae Antigen (M - Final Laboratory Results 12/29/19 06:15: Differential Comment SCANNED, Diff Path Review May foll, Reactive Lymphocytes 1+, Anisocytosis 2+, Microcytosis 1+, Macrocytosis 1+ 12/29/19 06:15: Sodium 133 L, Potassium 3.4 L, Chloride 99, Carbon Dioxide 26.0, Anion Gap 8, BUN 15, Creatinine 1.15, Estim Creat Clear Calc 77.79, Est GFR (MDRD) Af Amer 85, Est GFR (MDRD) Non-Af 70, BUN/Creatinine Ratio 13.0, Glucose 162 H, Calcium 9.1, Total Bilirubin 0.70, AST 14 L, ALT 15 L, Alkaline Phosphatase 89, Total Protein 7.1, Albumin 2.8 L, Globulin 4.3 H, Albumin/Globulin Ratio 0.7 L 12/29/19 06:15: Magnesium 1.4 L 12/29/19 06:44: Sodium Cancelled, Potassium Cancelled, Chloride Cancelled, Carbon Dioxide Cancelled, Anion Gap Cancelled, BUN Cancelled, Creatinine Cancelled, Estim Creat Clear Calc Cancelled, Est GFR (MDRD) Af Amer Cancelled, Est GFR (MDRD) Non-Af Cancelled, BUN/Creatinine Ratio Cancelled, Glucose Cancelled, Calcium Cancelled, Total Bilirubin Cancelled, AST Cancelled, ALT Cancelled, Alkaline Phosphatase Cancelled, Total Protein Cancelled, Albumin Cancelled, Globulin Cancelled, Albumin/Globulin Ratio Cancelled 12/29/19 07:31: COVID-19 (LEONELA) Negative 12/29/19 08:50: Urine Color Yellow, Urine Clarity Clear, Urine pH 8.0, Ur Specific [place] 1.010, Urine Protein 100 H, Urine Glucose (UA) 100 H, Urine Ketones 5 H, Urine Occult Blood 10 H, Urine Nitrite Negative, Urine Bilirubin Negative, Urine Urobilinogen Normal, Ur Leukocyte Esterase 25 H, Urine RBC 0-5 SEEN, Urine WBC 0-5 SEEN, Ur Squamous Epith Cells 0-5 SEEN, Urine Bacteria 0 SEEN, Urine Mucus 0 SEEN 12/29/19 12:00: Lactic Acid 1.5 12/29/19 14:00: MRSA (PCR) Negative 12/30/19 03:20: WBC 1.4 L*, RBC 2.49 L, Hgb 8.1 L, Hct 25.2 L, MCV 101.2 H, MCH 32.5 H, MCHC 32.1, RDW Std Deviation 80.9 H, RDW Coeff of Radha 22.1 H, Plt Count 65 L, MPV 11.0, Immature Gran % (Auto) 3.700 H, Neut % (Auto) 71.8 H, Lymph % (Auto) 17.8 L, [place] % (Auto) 1.5, Eos % (Auto) 2.2, Baso % (Auto) 3.0 H, Absolute Neuts (auto) 1.0 L, Absolute Lymphs (auto) 0.24 L, Nucleated RBC % 0, Differential Comment COMMENT, Diff Path Review June foll, Platelet Estimate MOD DEC, Anisocytosis 2+, Macrocytosis 1+ 12/30/19 03:20: Sodium 137, Potassium 3.4 L, Chloride 105, Carbon Dioxide 28.0, Anion Gap 4 L, BUN 13, Creatinine 0.78, Estim Creat Clear Calc 119.47, Est GFR (MDRD) Af Amer 134, Est GFR (MDRD) Non-Af 111, BUN/Creatinine Ratio 16.8, Glucose 82, Calcium 7.9 L, Phosphorus 2.9, Magnesium 1.5 L Current Medications Acetaminophen (Acetaminophen 325 Mg Tablet) 650 mg PO Q6H PRN PRN PRN Reason: Pain Score 1-10/Temp > 100.7 F Al Hydroxide/Mg Hydroxide (Mag Hydrox/Al Hydrox/Simeth 30 Ml Udc) 30 ml PO Q6H PRN PRN PRN Reason: Gastric Burning Albuterol/Ipratropium (Ipratropium/Albuterol Sulfate 3 Ml Ampul.Neb) 3 ml INHALATION Q4H.RT PRN PRN Reason: sob Apixaban (Apixaban 5 Mg Tablet) 5 mg PO BID [facility] Last Admin: 12/29/19 21:18 Dose: 5 mg Documented by: Aspirin (Aspirin 81 Mg Tab.Chew) 162 mg PO DAILY@0800 [facility] Atorvastatin Calcium (Atorvastatin Calcium 80 Mg Tablet) 80 mg PO DAILY@2200 [facility] Last Admin: 12/29/19 21:18 Dose: 80 mg Documented by: Bisacodyl (Bisacodyl 5 Mg Tablet) 5 mg PO DAILY PRN PRN PRN Reason: Constipation Escitalopram Oxalate (Escitalopram Oxalate 10 Mg Tablet) 10 mg PO DAILY [facility] Folic Acid (Folic Acid 1 Mg Tablet) 1 mg PO DAILYCM [facility] Gabapentin (Gabapentin 400 Mg Capsule) 400 mg PO TIDCM [facility] Last Admin: 12/29/19 16:36 Dose: 400 mg Documented by: Guaifenesin (Guaifenesin 1,200 Mg Tablet) 1,200 mg PO BID [facility] Last Admin: 12/29/19 21:18 Dose: Not Given Documented by: Heparin Sodium (Beef Lung) (Heparin Pf Lock 10 Units/Ml 50 Units/5 Ml Syringe) 50 units IV UD PRN PRN Reason: Port-a-Cath (VAD)Heparin Flush Hydromorphone HCl (Hydromorphone 1 Mg/Ml Syringe) 1 mg IV Q4H PRN PRN PRN Reason: Pain Score 6-10 Last Admin: 12/30/19 05:37 Dose: 1 mg Documented by: Piperacillin Sod/Tazobactam (Sod 3.375 gm/ Sodium Chloride) 50 mls @ 12.5 mls/hr IV Q8 [facility] Stop: 01/05/20 14:01 Last Admin: 12/30/19 05:38 Dose: 12.5 mls/hr Documented by: Vancomycin IV Pharmacy to Dose (1 ea/ Sodium Chloride) 500 mls @ 250 mls/hr IV DAILY [facility]; Protocol Vancomycin HCl (Vancomycin) 1,000 mg in 200 mls @ 200 mls/hr IV Q12H [facility] Last Infusion: 12/30/19 02:02 Dose: Infused Documented by: Lorazepam (Lorazepam 2 Mg/Ml Syringe) 1 mg IV Q6H PRN PRN PRN Reason: ANXIETY Last Admin: 12/30/19 03:18 Dose: 1 mg Documented by: Metoprolol Succinate (Metoprolol(Xl)Succ 25 Mg Tablet) 25 mg PO DAILY [facility] Last Admin: 12/29/19 16:36 Dose: 25 mg Documented by: Morphine Sulfate (Morphine Sr 15 Mg Tablet) 15 mg PO TID [facility] Last Admin: 12/30/19 05:36 Dose: 15 mg Documented by: Nitroglycerin (Nitroglycerin (Inpatient Use) 0.4 Mg Tab.Subl) 0.4 mg SUBLINGUAL Q5M PRN PRN Reason: CARDIAC/CHEST PAIN Ondansetron HCl (Ondansetron 4 Mg/2 Ml Vial) 4 mg IV Q8H PRN PRN PRN Reason: NAUSEA/VOMITING Oxycodone HCl (Oxycodone 5 Mg Tablet) 5 mg PO Q4H PRN PRN PRN Reason: Pain Score 4-5 Pantoprazole Sodium (Pantoprazole Sodium 40 Mg Tablet) 40 mg PO BID [facility] Last Admin: 12/29/19 21:17 Dose: 40 mg Documented by: Phenol/Menthol (Phenol/Sodium Phenolate 180ml) 5 spray MM Q2H PRN PRN PRN Reason: SORE THROAT Prochlorperazine Edisylate (Prochlorperazine 10 Mg/2 Ml Vial) 5 mg IV Q4H PRN PRN PRN Reason: Breakthrough Nausea/Vomiting Psyllium Hydrophilic Mucilloid (Psyllium 1 Packet) 1 packet PO DAILY [facility] Senna/Docusate Sodium (Senna/Docusate Sodium 1 Tablet) 2 tablet PO BID [facility] Last Admin: 12/29/19 21:19 Dose: Not Given Documented by: Sodium Chloride (0.9% Saline Lock 10 Ml Syringe) 10 - 40 ml IV UD PRN PRN Reason: Port-a-Cath (VAD) Flush Last Admin: 12/30/19 05:37 Dose: 20 ml Documented by: Sodium Chloride (0.9 % Nacl (Sterile) Posiflush 10 Ml) 10 - 40 ml IV UD PRN PRN Reason: Port access or dressing change Tbo-Filgrastim (Tbo-Filgrastim 300 Mcg/0.5 Ml Ml) 300 mcg SC DAILY [facility] Trazodone HCl (Trazodone 50 Mg Tablet) 50 mg PO QHS [facility] Last Admin: 12/29/19 21:18 Dose: 50 mg Documented by: Zolpidem Tartrate (Zolpidem Tartrate 5 Mg Tablet) 5 mg PO QHS PRN PRN PRN Reason: INSOMNIA STROKE Vital Signs/Narrative: Vital Signs Pulse Resp BP Pulse Ox 12/30/19 07:27 75 91/64 93 12/30/19 07:18 74 12/30/19 06:00 79 12 96/60 90 12/30/19 05:00 75 10 L 91/60 93 Medical Necessity - Tobacco Use Smoking Status: Light Smoker (<10/day) Assessment/Plan All Active Problems (Last Updated 04/10/18 @ 11:34 by Raine Huber) Elevated lactic acid level (Acute) Necrotizing pneumonia (Acute) Acute pulmonary embolism (Resolved 04/08/18) Chest pain (Resolved) Intermittent palpitations (Resolved) STEMI (ST elevation myocardial infarction) (Resolved) The patient is a 54 year old M with history of right lung cancer on chemotherapy, previous hospital admission between 11/15?11/18/2019 severe sepsis with no clear source of infection came to ED with near syncope and severe right-sided chest pain and CT chest finding suggestive of necrotizing pneumonia 1. Severe sepsis secondary to right apical necrotizing pneumonia with history of right lung cancer: Patient is being admitted in ICU. IV fluid resuscitation. Monitor intake and output. Repeat lactic acid. Pneumonia work-up including blood cultures x2, MRSA nasal screen, urinary antigens and sputum culture ordered. On broad-spectrum IV antibiotics vancomycin and Zosyn. CT chest and individually reviewed and discussed with the dye reel operator. It is significant for new necrotizing pneumonia 5.5 x 5.3 cm in right lung apex abating with paraseptal cyst of the right lung apex. Drilling Rig Operator consult requested. 12/29: Patient to continue broad-spectrum antibiotic vancomycin and Zosyn. Urinary antigens are negative. Respiratory panel negative. Pulmonary urine culture did not show growth. MRSA nasal screen PCR negative. Patient is hemodynamically stable to be transferred to PCU. Discussed with the statistical reporting analyst. 2. Right lung cancer complicated with right paratracheal mediastinal lymphadenopathy with cystic necrosis and right hilar lymphadenopathy with chronic right-sided pleuritic chest pain: Being managed by a [facility] [facility] oncologist Dr. Can. Right fourth chemotherapy on 12/24/2019. Exact histology, biology and staging of cancer not known. Lung biopsy not available. Exact chemotherapy regimen also not known. Patient is on heavy dose of morphine at home. Morphine sustained-release 15 mg 3 times daily along with morphine IR 15 p.o. every 4 hourly as needed for severe pain. 12/29: Patient was counseled against dependence of benzodiazepine or morphine. He states his oncologist gives him morphine. When he takes 14 tablets every day including benzodiazepine. It seems patient is opioid and benzodiazepine dependent but denies any history of withdrawal syndrome 3. Coronary artery disease status post stent, paroxysmal A. fib and non-STEMI history: Cardiac medications including Eliquis resumed 4. 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 Other comorbidities include hypertension, chronic cigarette/nicotine use under, dyslipidemia, chronic alcohol use disorder: Patient still smokes 5 cigarettes/day. Nicotine use. Last alcoholic drink about 2 and half weeks ago. Nicotine patch. Advised quitting cigarette use and alcohol use. 6. VTE prophylaxis: Patient is on Eliquis 5 mg twice daily for proximal A. fib Advanced directive: Full code Total time of the visit including total time spent in counseling or coordination of care, (more than 50% of the total time, spent in obtaining medical information from nurses and other ancillary care providers,explaining to the patient about labs, imaging, diagnosis and management), discussion with dye reel operator, review of labs and imaging is 30 minutes. Microbiology Past 72 Hours 12/29/19 08:50 Urine, Clean Catch Urine Culture - Preliminary Culture exhibits no growth. 12/29/19 07:31 Mucosa - Nose Respiratory Panel (PCR) - Final 12/29/19 14:00 Urine, Clean Catch Legionella Antigen - Final 12/29/19 14:00 Urine, Clean Catch Streptococcus pneumoniae Antigen (M - Final Laboratory Results 12/29/19 06:15: Magnesium 1.4 L 12/29/19 12:00: Lactic Acid 1.5 12/29/19 14:00: MRSA (PCR) Negative 12/30/19 03:20: WBC 1.4 L*, RBC 2.49 L, Hgb 8.1 L, Hct 25.2 L, MCV 101.2 H, MCH 32.5 H, MCHC 32.1, RDW Std Deviation 80.9 H, RDW Coeff of Radha 22.1 H, Plt Count 65 L, MPV 11.0, Immature Gran % (Auto) 3.700 H, Neut % (Auto) 71.8 H, Lymph % (Auto) 17.8 L, [place] % (Auto) 1.5, Eos % (Auto) 2.2, Baso % (Auto) 3.0 H, Absolute Neuts (auto) 1.0 L, Absolute Lymphs (auto) 0.24 L, Nucleated RBC % 0, Differential Comment COMMENT, Diff Path Review May foll, Platelet Estimate MOD DEC, Anisocytosis 2+, Macrocytosis 1+ 12/30/19 03:20: Sodium 137, Potassium 3.4 L, Chloride 105, Carbon Dioxide 28.0, Anion Gap 4 L, BUN 13, Creatinine 0.78, Estim Creat Clear Calc 119.47, Est GFR (MDRD) Af Amer 134, Est GFR (MDRD) Non-Af 111, BUN/Creatinine Ratio 16.8, Glucose 82, Calcium 7.9 L, Phosphorus 2.9, Magnesium 1.5 L Clinical Impression(s) from Imaging Studies Chest X-Ray 12/29/19 06:00 IMPRESSION: Stable chest. Stable right midlung opacity consistent with prior detected small pleural effusion in the fissure. Chest CTA 12/29/19 07:03 IMPRESSION: 1. New necrotizing pneumonia with traction bronchiectasis in the right lung apex measuring at least 5.5 x 5.3 cm and abuts the paraseptal cysts of the right lung apex. 2. Increasing groundglass opacities in the right upper lobe. 3. Right paratracheal mediastinal lymphadenopathy with cystic necrosis measures at least 4.8 x 4 x 5.5 cm and the right hilar lymphadenopathy measures at least 3.4 x 3.1 cm. Allowing for interobserver differences, these are unchanged. 4. No CTA evidence of pulmonary thromboemboli or thoracic aortic dissection. 5. Mild dilatation of the ascending aorta with a diameter of 3.9 cm versus 2.3 cm for the descending thoracic aorta. This is unchanged. 6. Decreased right pleural fluid and fluid along the right major fissure. 7. No other additional findings or changes since 12/18/2019. Inpatient E&M: [id number] [facility] L3
[2019-12-30] MEDS: TBO-FILGRASTIM 300 MCG/0.5 ML ML SC (09:39)
[2019-12-30] MEDS: Gabapentin 400 MG Capsule PO ×3 (09:42→17:44)
[2019-12-30] MEDS: Aspirin 81 MG TAB.CHEW 162 MG PO (09:42)
[2019-12-30] MEDS: Pantoprazole Sodium 40 MG Tablet PO ×2 (09:42→20:39)
[2019-12-30] MEDS: APIXABAN 5 MG TABLET PO ×2 (09:43→20:39)
[2019-12-30] MEDS: Folic Acid 1 MG Tablet PO (09:43)
[2019-12-30] MEDS: Escitalopram Oxalate 10 MG Tablet PO (09:44)
[2019-12-30] MEDS: oxyCODONE 5 MG Tablet PO (20:38)
[2019-12-30] MEDS: Senna/Docusate Sodium 1 Tablet 2 TABLET PO (20:38)
[2019-12-30] MEDS: traZODone 50 MG Tablet PO (20:39)
[2019-12-30] MEDS: Atorvastatin Calcium 80 MG Tablet PO (20:39)
--- NOTE | 2019-12-30 22:46 | NURSING ---
PT REFUSES PO KCL AT THIS TIME.
[2019-12-31] VITALS (12 sets, daily range): BP systolic 102–135; BP diastolic 63–110; PULSE 87–101; RESP 14–20; TEMP 36.4–36.9; O2SAT 93–96
[2019-12-31] MEDS: LORazepam 2 MG/ML Syringe 1 MG IV ×2 (00:03→06:01)
[2019-12-31 00:04] LABS: Vancomycin, Trough Level 12.9 ug/mL (5.0-15.0)
[2019-12-31] MEDS: 0.9% Saline Lock 10 ML Syringe IV ×6 (00:05→18:49)
[2019-12-31] MEDS: oxyCODONE 5 MG Tablet PO ×6 (00:43→21:12)
[2019-12-31] MEDS: Vancomycin IV 1,000 MG/200 ML BAG 200 MG IV (00:44)
[2019-12-31] MEDS: HYDROmorphone 1 MG/ML Syringe IV ×6 (02:01→23:57)
--- NOTE | 2019-12-31 02:23 | PCM.RX.CS ---
Consult Pharmacy has been consulted to manage selected antiobiotic: Vancomycin Type of Consult: Follow-up Suspected Infection: Pneumonia Labs: Sodium 137 mmol/L (136-145) 12/30/19 03:20 Potassium 3.4 mmol/L (3.5-5.1) L 12/30/19 03:20 Chloride 105 mmol/L (98-107) 12/30/19 03:20 Carbon Dioxide 28.0 mmol/L (21.0-32.0) 12/30/19 03:20 Anion Gap 4 (5-15) L 12/30/19 03:20 BUN 13 mg/dL (7-18) 12/30/19 03:20 Creatinine 0.78 mg/dL (0.70-1.30) 12/30/19 03:20 Est GFR (MDRD) Af Amer 134 mL/min (>60) 12/30/19 03:20 Est GFR (MDRD) Non-Af 111 mL/min (>60) 12/30/19 03:20 BUN/Creatinine Ratio 16.8 RATIO (10-20) 12/30/19 03:20 Glucose 82 mg/dL (74-106) 12/30/19 03:20 Vancomycin Trough 12.9 ug/mL (5.0-15.0) 12/30/19 23:25 Microbiology: Microbiology 12/29/19 08:50 Urine, Clean Catch Urine Culture - Preliminary Culture exhibits no growth. 12/29/19 07:31 Mucosa - Nose Respiratory Panel (PCR) - Final 12/29/19 14:00 Urine, Clean Catch Legionella Antigen - Final 12/29/19 14:00 Urine, Clean Catch Streptococcus pneumoniae Antigen (M - Final Goal Trough: 15-20 mcg/mL Pharmacy Plan for Drug Dosing: Pharmacy Service will continue to monitor and adjust dosing as required. TROUGH 12.9 INCREASE TO 1250 AND FOLLOW UP TROUGH 12/31 @ 2330 Follow-Up Labs: Trough Vancomycin Labs to be done on [date and time ordered]: 12/31 @ 5
[2019-12-31 04:58] LABS: Hematocrit 23.6 % (40-54); Hemoglobin 7.7 g/dL (13.0-16.5); Mean Corp Hgb Conc 32.6 g/dL (32-36); Mean Corpuscular Hgb 32.8 pg (27.0-32.0); Mean Corpuscular Volume 100.4 fL (80-94); Mean Platelet Vol. 10.8 fl (6.2-12.0); POSITIVE COUNT YES; POSITIVE DIFFERENTIAL YES; POSITIVE MORPHOLOGY YES; Platelet Count 56 K/mm3 (150-450); RBC Distribution Width CV 21.2 % (11.6-14.6); RBC Distribution Width SD 78.2 fl (35.1-43.9); Red Blood Count 2.35 M/mm3 (4.6-6.2); White Blood Count 1.8 K/mm3 (4.4-11.0)
[2019-12-31 05:07] LABS: Differential Indicated MANUAL DIFF
[2019-12-31 05:09] LABS: Anion Gap 6 (5-15); BUN 10 mg/dL (7-18); Chloride 101 mmol/L (98-107); Creatinine, Serum 0.83 mg/dL (0.70-1.30); EST Glomerular Filtration Rate 102 mL/min (>60); Est Glom Filt Rate - Afr Amer 124 mL/min (>60); Estimated Creatinine Clearance 113.98 ml/min; Glucose 132 mg/dL (74-106); Magnesium 1.8 mg/dL (1.6-2.6); Sodium Level 136 mmol/L (136-145)
[2019-12-31 05:34] LABS: Absolute Lymphocyte Count 0.18 X10^3/uL (0.83-4.51); Absolute Neutrophil Count 1.5 X10^3/uL (2.0-7.7); Lymphocyte 10 % (19-41); Metamyelocyte 5 % (0-1); Monocyte 2 % (0-10); Neutrophil-Band 16 % (0-5); Neutrophil-Segmented 67 % (47-70); Total Cells Counted 100 (MANUAL DIFF)
[2019-12-31 05:35] LABS: Hypochromasia 1+; Platelet Estimate MOD DEC (ADEQ); Red Cell Morphology N CYTIC NORMAL (NORM C&C)
[2019-12-31] MEDS: morphine SR 15 MG Tablet PO ×3 (06:01→21:12)
--- NOTE | 2019-12-31 07:19 | PN_ITS ---
Subjective: Patient did okay overnight. Nursing is reporting the patient has been demanding pain medication and Ativan at scheduled times. Patient overall reports that he has pain, but believes this is consistent with his chronic pain. Patient is not reporting any nausea or vomiting, but does state that he has difficulty with some pills. Patient has not had his potassium supplementation secondary to refusal to swallow. General: Alert, Oriented x3, Cooperative - Intermittently, No apparent distress, - - RASS -1 HEENT: Atraumatic, PERRLA, EOMI, Normocephalic, - - Slight scleral injection Oral: Moist Mucosa, No Gingival or Mucosal Lesions/ Ulcerations Neck: Supple, No JVD, No Nodes, Trachea Midline Lungs: No wheeze, No rales, Diminished, Rhonchi - Left greater than right, - - Symmetric expansion Cardiovascular: Regular rate, Regular Rhythm, Normal S1, Normal S2, No murmurs, No rub noted, No Gallop Abdomen: Bowel Sounds Present, Soft, Non Tender, Non-Distended Extremities: No clubbing, No cyanosis, No edema Skin: No rashes, No breakdown Musculoskeletal: No Tenderness to Palpation of Joints or Extremities Lymphatic: No Cervical, Supraclavicular, or Inguinal Adenopathy Neurological: Cranial nerves II-XII grossly intact, Neuro grossly intact, Motor Exam 5/5 strength throughout Psych/Mental Status: Anxious, Flat Affect Vital Signs Temp Pulse Resp BP Pulse Ox 36.6 C 97 18 109/76 93 12/31/19 05:01 12/31/19 05:01 12/31/19 05:01 12/31/19 05:01 12/31/19 05:01 Oxygen Delivery Method Room Air Weight: 79.2 kg Body Mass Index (BMI) 21.4 Intake and Output for Last 24 Hours 12/29/19 12/30/19 12/31/19 23:59 23:59 23:59 Intake Total 4201.67 / 4201.67 2445 / 2565 574 / 574 Output Total 1225 / 1225 2525 / 2825 1225 / 1225 Balance 2976.67 / 2976.67 -80 / -260 -651 / -651 Labs (Last 48 Hours) 12/29/19 12/29/19 12/29/19 06:15 06:15 06:15 WBC RBC Hgb Hct MCV MCH MCHC RDW Std Deviation RDW Coeff of Radha Plt Count MPV Immature Gran % (Auto) Neut % (Auto) Lymph % (Auto) Moca % (Auto) Eos % (Auto) Baso % (Auto) Absolute Neuts (auto) Absolute Lymphs (auto) Total Counted Neutrophils % (Manual) Band Neutrophils % Lymphocytes % (Manual) Monocytes % (Manual) Metamyelocytes % Nucleated RBC % Differential Comment SCANNED Diff Path Review May foll Reactive Lymphocytes 1+ Platelet Estimate RBC Morphology Hypochromasia Anisocytosis 2+ Microcytosis 1+ Macrocytosis 1+ Sodium 133 L Potassium 3.4 L Chloride 99 Carbon Dioxide 26.0 Anion Gap 8 BUN 15 Creatinine 1.15 Estim Creat Clear Calc 77.79 Est GFR (MDRD) Af Amer 85 Est GFR (MDRD) Non-Af 70 BUN/Creatinine Ratio 13.0 Glucose 162 H Lactic Acid Calcium 9.1 Phosphorus Magnesium 1.4 L Total Bilirubin 0.70 AST 14 L ALT 15 L Alkaline Phosphatase 89 Total Protein 7.1 Albumin 2.8 L Globulin 4.3 H Albumin/Globulin Ratio 0.7 L Procalcitonin Urine Color Urine Clarity Urine pH Ur Specific Mcconnell Urine Protein Urine Glucose (UA) Urine Ketones Urine Occult Blood Urine Nitrite Urine Bilirubin Urine Urobilinogen Ur Leukocyte Esterase Urine RBC Urine WBC Ur Squamous Epith Cells Urine Bacteria Urine Mucus Vancomycin Trough Ethyl Alcohol COVID-19 (LEONELA) MRSA (PCR) 12/29/19 12/29/19 12/29/19 06:40 06:44 06:44 WBC RBC Hgb Hct MCV MCH MCHC RDW Std Deviation RDW Coeff of Radha Plt Count MPV Immature Gran % (Auto) Neut % (Auto) Lymph % (Auto) Moca % (Auto) Eos % (Auto) Baso % (Auto) Absolute Neuts (auto) Absolute Lymphs (auto) Total Counted Neutrophils % (Manual) Band Neutrophils % Lymphocytes % (Manual) Monocytes % (Manual) Metamyelocytes % Nucleated RBC % Differential Comment Diff Path Review Reactive Lymphocytes Platelet Estimate RBC Morphology Hypochromasia Anisocytosis Microcytosis Macrocytosis Sodium Cancelled Potassium Cancelled Chloride Cancelled Carbon Dioxide Cancelled Anion Gap Cancelled BUN Cancelled Creatinine Cancelled Estim Creat Clear Calc Cancelled Est GFR (MDRD) Af Amer Cancelled Est GFR (MDRD) Non-Af Cancelled BUN/Creatinine Ratio Cancelled Glucose Cancelled Lactic Acid 2.2 H* Calcium Cancelled Phosphorus Magnesium Total Bilirubin Cancelled AST Cancelled ALT Cancelled Alkaline Phosphatase Cancelled Total Protein Cancelled Albumin Cancelled Globulin Cancelled Albumin/Globulin Ratio Cancelled Procalcitonin 0.14 H Urine Color Urine Clarity Urine pH Ur Specific M[place]nell Urine Protein Urine Glucose (UA) Urine Ketones Urine Occult Blood Urine Nitrite Urine Bilirubin Urine Urobilinogen Ur Leukocyte Esterase Urine RBC Urine WBC Ur Squamous Epith Cells Urine Bacteria Urine Mucus Vancomycin Trough Ethyl Alcohol COVID-19 (LEONELA) MRSA (PCR) 12/29/19 12/29/19 12/29/19 07:00 07:31 08:50 WBC RBC Hgb Hct MCV MCH MCHC RDW Std Deviation RDW Coeff of Radha Plt Count MPV Immature Gran % (Auto) Neut % (Auto) Lymph % (Auto) Moca % (Auto) Eos % (Auto) Baso % (Auto) Absolute Neuts (auto) Absolute Lymphs (auto) Total Counted Neutrophils % (Manual) Band Neutrophils % Lymphocytes % (Manual) Monocytes % (Manual) Metamyelocytes % Nucleated RBC % Differential Comment Diff Path Review Reactive Lymphocytes Platelet Estimate RBC Morphology Hypochromasia Anisocytosis Microcytosis Macrocytosis Sodium Potassium Chloride Carbon Dioxide Anion Gap BUN Creatinine Estim Creat Clear Calc Est GFR (MDRD) Af Amer Est GFR (MDRD) Non-Af BUN/Creatinine Ratio Glucose Lactic Acid Calcium Phosphorus Magnesium Total Bilirubin AST ALT Alkaline Phosphatase Total Protein Albumin Globulin Albumin/Globulin Ratio Procalcitonin Urine Color Yellow Urine Clarity Clear Urine pH 8.0 Ur Specific Mcconnell 1.010 Urine Protein 100 H Urine Glucose (UA) 100 H Urine Ketones 5 H Urine Occult Blood 10 H Urine Nitrite Negative Urine Bilirubin Negative Urine Urobilinogen Normal Ur Leukocyte Esterase 25 H Urine RBC 0-5 SEEN Urine WBC 0-5 SEEN Ur Squamous Epith Cells 0-5 SEEN Urine Bacteria 0 SEEN Urine Mucus 0 SEEN Vancomycin Trough Ethyl Alcohol 4.0 COVID-19 (LEONELA) Negative MRSA (PCR) 12/29/19 12/29/19 12/30/19 12:00 14:00 03:20 WBC 1.4 L* RBC 2.49 L Hgb 8.1 L Hct 25.2 L MCV 101.2 H MCH 32.5 H MCHC 32.1 RDW Std Deviation 80.9 H RDW Coeff of Radha 22.1 H Plt Count 65 L MPV 11.0 Immature Gran % (Auto) 3.700 H Neut % (Auto) 71.8 H Lymph % (Auto) 17.8 L Moca % (Auto) 1.5 Eos % (Auto) 2.2 Baso % (Auto) 3.0 H Absolute Neuts (auto) 1.0 L Absolute Lymphs (auto) 0.24 L Total Counted Neutrophils % (Manual) Band Neutrophils % Lymphocytes % (Manual) Monocytes % (Manual) Metamyelocytes % Nucleated RBC % 0 Differential Comment COMMENT Diff Path Review May foll Reactive Lymphocytes Platelet Estimate MOD DEC RBC Morphology Hypochromasia Anisocytosis 2+ Microcytosis Macrocytosis 1+ Sodium Potassium Chloride Carbon Dioxide Anion Gap BUN Creatinine Estim Creat Clear Calc Est GFR (MDRD) Af Amer Est GFR (MDRD) Non-Af BUN/Creatinine Ratio Glucose Lactic Acid 1.5 Calcium Phosphorus Magnesium Total Bilirubin AST ALT Alkaline Phosphatase Total Protein Albumin Globulin Albumin/Globulin Ratio Procalcitonin Urine Color Urine Clarity Urine pH Ur Specific M[place] Urine Protein Urine Glucose (UA) Urine Ketones Urine Occult Blood Urine Nitrite Urine Bilirubin Urine Urobilinogen Ur Leukocyte Esterase Urine RBC Urine WBC Ur Squamous Epith Cells Urine Bacteria Urine Mucus Vancomycin Trough Ethyl Alcohol COVID-19 (LEONELA) MRSA (PCR) Negative 12/30/19 12/30/19 12/31/19 03:20 23:25 04:45 WBC 1.8 L RBC 2.35 L Hgb 7.7 L Hct 23.6 L MCV 100.4 H MCH 32.8 H MCHC 32.6 RDW Std Deviation 78.2 H RDW Coeff of Radha 21.2 H Plt Count 56 L MPV 10.8 Immature Gran % (Auto) Neut % (Auto) Not Reportable Lymph % (Auto) Moca % (Auto) Eos % (Auto) Baso % (Auto) Absolute Neuts (auto) 1.5 L Absolute Lymphs (auto) 0.18 L Total Counted 100 Neutrophils % (Manual) 67 Band Neutrophils % 16 H Lymphocytes % (Manual) 10 L Monocytes % (Manual) 2 Metamyelocytes % 5 H Nucleated RBC % Differential Comment Diff Path Review May foll Reactive Lymphocytes Platelet Estimate MOD DEC RBC Morphology N CYTIC Hypochromasia 1+ Anisocytosis Microcytosis Macrocytosis Sodium 137 Potassium 3.4 L Chloride 105 Carbon Dioxide 28.0 Anion Gap 4 L BUN 13 Creatinine 0.78 Estim Creat Clear Calc 119.47 Est GFR (MDRD) Af Amer 134 Est GFR (MDRD) Non-Af 111 BUN/Creatinine Ratio 16.8 Glucose 82 Lactic Acid Calcium 7.9 L Phosphorus 2.9 Magnesium 1.5 L Total Bilirubin AST ALT Alkaline Phosphatase Total Protein Albumin Globulin Albumin/Globulin Ratio Procalcitonin Urine Color Urine Clarity Urine pH Ur Specific [place] Urine Protein Urine Glucose (UA) Urine Ketones Urine Occult Blood Urine Nitrite Urine Bilirubin Urine Urobilinogen Ur Leukocyte Esterase Urine RBC Urine WBC Ur Squamous Epith Cells Urine Bacteria Urine Mucus Vancomycin Trough 12.9 Ethyl Alcohol COVID-19 (LEONELA) MRSA (PCR) 12/31/19 04:45 WBC RBC Hgb Hct MCV MCH MCHC RDW Std Deviation RDW Coeff of Radha Plt Count MPV Immature Gran % (Auto) Neut % (Auto) Lymph % (Auto) Moca % (Auto) Eos % (Auto) Baso % (Auto) Absolute Neuts (auto) Absolute Lymphs (auto) Total Counted Neutrophils % (Manual) Band Neutrophils % Lymphocytes % (Manual) Monocytes % (Manual) Metamyelocytes % Nucleated RBC % Differential Comment Diff Path Review Reactive Lymphocytes Platelet Estimate RBC Morphology Hypochromasia Anisocytosis Microcytosis Macrocytosis Sodium 136 Potassium 3.0 L Chloride 101 Carbon Dioxide 29.0 Anion Gap 6 BUN 10 Creatinine 0.83 Estim Creat Clear Calc 113.98 Est GFR (MDRD) Af Amer 124 Est GFR (MDRD) Non-Af 102 BUN/Creatinine Ratio 12.0 Glucose 132 H Lactic Acid Calcium 8.0 L Phosphorus Magnesium 1.8 Total Bilirubin AST ALT Alkaline Phosphatase Total Protein Albumin Globulin Albumin/Globulin Ratio Procalcitonin Urine Color Urine Clarity Urine pH Ur Specific [place] Urine Protein Urine Glucose (UA) Urine Ketones Urine Occult Blood Urine Nitrite Urine Bilirubin Urine Urobilinogen Ur Leukocyte Esterase Urine RBC Urine WBC Ur Squamous Epith Cells Urine Bacteria Urine Mucus Vancomycin Trough Ethyl Alcohol COVID-19 (LEONELA) MRSA (PCR) Microbiology 12/29/19 08:50 Urine, Clean Catch Urine Culture - Preliminary Culture exhibits no growth. 12/29/19 07:31 Mucosa - Nose Respiratory Panel (PCR) - Final 12/29/19 14:00 Urine, Clean Catch Legionella Antigen - Final 12/29/19 14:00 Urine, Clean Catch Streptococcus pneumoniae Antigen (M - Final Medical Necessity - Tobacco Use Smoking Status: Light Smoker (<10/day) Assessment/Plan All Active Problems (Last Updated 04/10/18 @ 11:34 by Raine Huber) Elevated lactic acid level (Acute) Necrotizing pneumonia (Acute) Acute pulmonary embolism (Resolved 04/08/18) Chest pain (Resolved) Intermittent palpitations (Resolved) STEMI (ST elevation myocardial infarction) (Resolved) RECOMMENDATIONS: 1. Continue broad-spectrum antimicrobials as ordered. Possibly discontinue vancomycin if okay with ID 2. Await sputum for culture. 3. Continue Granix per infectious disease 4. Continue baseline, outpatient pain regimen. 5. Encourage incentive spirometer use and mobilize patient as tolerated. 6. Await speech therapy evaluation over concerns for possible aspiration. IMPRESSIONS: 1. Chest pain/necrotizing pneumonia Unclear etiology, although suspect related to underlying lung cancer and/or necrotizing pneumonia. Continue baseline, outpatient pain control regimen. Continue antimicrobials as ordered. The patient is currently maintaining appropriate oxygen saturations on room air. Infectious diseases consultation is pending. Patient's nasal MRSA was negative, so potentially could have vancomycin discontinued. Patient does have a port, but may require protracted antibiotic course. Therapy is complicated by immunosuppression associated with lung cancer. 2. Pancytopenia/history of lung cancer The patient is currently under the management of oncology at [facility], having last received chemotherapy earlier in the week. Recommend continued outpatient follow-up. Would defer to infectious disease on whether Granix could be discontinued. 3. Questionable COPD of unknown severity/chronic tobacco dependency The patient has a self-reported history of COPD of unknown severity along with an extensive tobacco abuse history. Tobacco cessation counseling was provided. Nicotine replacement therapy can be utilized while the patient is admitted to the hospital. Bronchodilators are reasonable for now 4. History of coronary artery disease status post PCI/hypertension/hyperlipidemia/chronic pain syndrome/anxiety/depression Complicates care, management, recovery and prognosis. Recommend continuing outpatient pain and anxiety regimen. Inpatient E&M: 93098 Subs Hosp L3
[2019-12-31] MEDS: Folic Acid 1 MG Tablet PO (08:44)
[2019-12-31] MEDS: Gabapentin 400 MG Capsule PO ×3 (08:44→18:22)
[2019-12-31] MEDS: Aspirin 81 MG TAB.CHEW 162 MG PO (08:44)
[2019-12-31] MEDS: Pantoprazole Sodium 40 MG Tablet PO ×2 (10:33→21:14)
[2019-12-31] MEDS: Senna/Docusate Sodium 1 Tablet 2 TABLET PO ×2 (10:33→21:14)
[2019-12-31] MEDS: Escitalopram Oxalate 10 MG Tablet PO (12:03)
[2019-12-31] MEDS: LORazepam 1 MG Tablet PO ×2 (12:03→18:22)
[2019-12-31] MEDS: TBO-FILGRASTIM 300 MCG/0.5 ML ML SC (12:04)
[2019-12-31 13:28] LABS: Pathologist Review Reviewed
[2019-12-31 13:35] LABS: Pathologist Review Reviewed
[2019-12-31 13:43] LABS: Pathologist Review Reviewed
[2019-12-31] MEDS: APIXABAN 5 MG TABLET PO ×2 (14:48→21:13)
--- NOTE | 2019-12-31 14:54 | PCM.PN.HOSP ---
Patient Problems: Active and Suspected Problems (Last Updated 04/10/18 @ 11:34 by Raine Huber) Elevated lactic acid level (Acute) Necrotizing pneumonia (Acute) Reason for Visit: Follow-up for necrotizing pneumonia. Immunocompromised host with pancytopenia with history of lung cancer on chemotherapy Objective: Patient did not had fever or chills. Heart rate and blood pressure is controlled. traffic monitor specialist shows sinus rhythm with occasional PVCs. Pulse ox 93% on room air Physical exam General: Alert, Oriented x3, Cooperative HEENT: Atraumatic, PERRLA, EOMI, Normocephalic Oral: No Gingival or Mucosal Lesions/ Ulcerations Neck: Supple, No JVD, Negative Carotid Bruits Lungs: Air entry diminished in bilateral lung bases. No crepitation/rhonchi. No hypoxia or tachypnea. Cardiovascular: Regular rate, Regular Rhythm, Normal S1, Normal S2, No murmurs Abdomen: Bowel Sounds Present, Soft, Non Tender, Non-Distended : No renal angle tenderness. No suprapubic tenderness. Extremities: No edema, Capillary Refill Less than 3 Seconds Skin: No rashes, No breakdown Musculoskeletal: No Tenderness to Palpation of Joints or Extremities Neurological: Cranial nerves II-XII grossly intact, Deep Tendon Reflexes 2+/4 and Symmetrical, Neuro grossly intact Psych/Mental Status: Normal Affect, Appropriate. Vitals/I&O's: Vital Signs Temp Pulse Resp BP Pulse Ox 97.6 F L 89 20 H 105/75 93 12/31/19 12:11 12/31/19 12:11 12/31/19 12:11 12/31/19 12:11 12/31/19 12:11 Oxygen Delivery Method Room Air Weight: 174 lb 9.698 oz Body Mass Index (BMI) 21.4 Intake and Output for Last 24 Hours 12/29/19 12/30/19 12/31/19 23:59 23:59 23:59 Intake Total 4201.67 / 4201.67 2445 / 2565 1019 / 1019 Output Total 1225 / 1225 2525 / 2825 1397 / 1397 Balance 2976.67 / 2976.67 -80 / -260 -378 / -378 Microbiology Past 72 Hours 12/29/19 08:50 Urine, Clean Catch Urine Culture - Final Culture exhibits no growth. 12/29/19 07:31 Mucosa - Nose Respiratory Panel (PCR) - Final 12/29/19 14:00 Urine, Clean Catch Legionella Antigen - Final 12/29/19 14:00 Urine, Clean Catch Streptococcus pneumoniae Antigen (M - Final Laboratory Results 12/29/19 06:15: Diff Path Review Reviewed 12/30/19 03:20: Diff Path Review Reviewed 12/30/19 23:25: Vancomycin Trough 12.9 12/31/19 04:45: WBC 1.8 L, RBC 2.35 L, Hgb 7.7 L, Hct 23.6 L, MCV 100.4 H, MCH 32.8 H, MCHC 32.6, RDW Std Deviation 78.2 H, RDW Coeff of Radha 21.2 H, Plt Count 56 L, MPV 10.8, Neut % (Auto) Not Reportable, Absolute Neuts (auto) 1.5 L, Absolute Lymphs (auto) 0.18 L, Total Counted 100, Neutrophils % (Manual) 67, Band Neutrophils % 16 H, Lymphocytes % (Manual) 10 L, Monocytes % (Manual) 2, Metamyelocytes % 5 H, Diff Path Review Reviewed, Platelet Estimate MOD DEC, RBC Morphology N CYTIC, Hypochromasia 1+ 12/31/19 04:45: Sodium 136, Potassium 3.0 L, Chloride 101, Carbon Dioxide 29.0, Anion Gap 6, BUN 10, Creatinine 0.83, Estim Creat Clear Calc 113.98, Est GFR (MDRD) Af Amer 124, Est GFR (MDRD) Non-Af 102, BUN/Creatinine Ratio 12.0, Glucose 132 H, Calcium 8.0 L, Magnesium 1.8 Current Medications Acetaminophen (Acetaminophen 325 Mg Tablet) 650 mg PO Q6H PRN PRN PRN Reason: Pain Score 1-10/Temp > 100.7 F Al Hydroxide/Mg Hydroxide (Mag Hydrox/Al Hydrox/Simeth 30 Ml Udc) 30 ml PO Q6H PRN PRN PRN Reason: Gastric Burning Albuterol/Ipratropium (Ipratropium/Albuterol Sulfate 3 Ml Ampul.Neb) 3 ml INHALATION Q4H.RT PRN PRN Reason: sob Apixaban (Apixaban 5 Mg Tablet) 5 mg PO BID [facility]ION[facility] Last Admin: 12/31/19 14:48 Dose: 5 mg Documented by: Aspirin (Aspirin 81 Mg Tab.Chew) 162 mg PO DAILY@0800 [facility] Last Admin: 12/31/19 08:44 Dose: 162 mg Documented by: Atorvastatin Calcium (Atorvastatin Calcium 80 Mg Tablet) 80 mg PO DAILY@2200 [facility] Last Admin: 12/30/19 20:39 Dose: 80 mg Documented by: Bisacodyl (Bisacodyl 5 Mg Tablet) 5 mg PO DAILY PRN PRN PRN Reason: Constipation Escitalopram Oxalate (Escitalopram Oxalate 10 Mg Tablet) 10 mg PO DAILY [facility] Last Admin: 12/31/19 12:03 Dose: 10 mg Documented by: Folic Acid (Folic Acid 1 Mg Tablet) 1 mg PO DAILYCM [facility] Last Admin: 12/31/19 08:44 Dose: 1 mg Documented by: Gabapentin (Gabapentin 400 Mg Capsule) 400 mg PO TIDCM [facility] Last Admin: 12/31/19 12:02 Dose: 400 mg Documented by: Guaifenesin (Guaifenesin 1,200 Mg Tablet) 1,200 mg PO BID [facility] Last Admin: 12/31/19 10:21 Dose: Not Given Documented by: Heparin Sodium (Beef Lung) (Heparin Pf Lock 10 Units/Ml 50 Units/5 Ml Syringe) 50 units IV UD PRN PRN Reason: Port-a-Cath (VAD)Heparin Flush Hydromorphone HCl (Hydromorphone 1 Mg/Ml Syringe) 1 mg IV Q4H PRN PRN PRN Reason: Pain Score 6-10 Last Admin: 12/31/19 14:48 Dose: 1 mg Documented by: Piperacillin Sod/Tazobactam (Sod 3.375 gm/ Sodium Chloride) 50 mls @ 12.5 mls/hr IV Q8 [facility] Stop: 01/05/20 14:01 Last Admin: 12/31/19 14:49 Dose: 12.5 mls/hr Documented by: Sodium Chloride () 250 mls @ 15 mls/hr IV .[id number] PRN PRN Reason: Saline Flush Sodium Chloride () 250 mls @ 15 mls/hr IV .[id number] PRN PRN Reason: Additional IVPB Infusion Lorazepam (Lorazepam 1 Mg Tablet) 1 mg PO Q6H PRN PRN PRN Reason: ANXIETY Last Admin: 12/31/19 12:03 Dose: 1 mg Documented by: Metoprolol Succinate (Metoprolol(Xl)Succ 25 Mg Tablet) 25 mg PO DAILY [facility] Last Admin: 12/31/19 12:03 Dose: Not Given Documented by: Morphine Sulfate (Morphine Sr 15 Mg Tablet) 15 mg PO TID [facility] Last Admin: 12/31/19 14:48 Dose: 15 mg Documented by: Nitroglycerin (Nitroglycerin (Inpatient Use) 0.4 Mg Tab.Subl) 0.4 mg SUBLINGUAL Q5M PRN PRN Reason: CARDIAC/CHEST PAIN Nutritional Formula (Lactose Free) (Ensure Enlive 120 Ml Liquid) 120 ml PO 4X/DAY [facility] Last Admin: 12/31/19 14:43 Dose: Not Given Documented by: Ondansetron HCl (Ondansetron 4 Mg/2 Ml Vial) 4 mg IV Q8H PRN PRN PRN Reason: NAUSEA/VOMITING Oxycodone HCl (Oxycodone 5 Mg Tablet) 5 mg PO Q4H PRN PRN PRN Reason: Pain Score 4-5 Last Admin: 12/31/19 12:42 Dose: 5 mg Documented by: Pantoprazole Sodium (Pantoprazole Sodium 40 Mg Tablet) 40 mg PO BID [facility] Last Admin: 12/31/19 10:33 Dose: 40 mg Documented by: Phenol/Menthol (Phenol/Sodium Phenolate 180ml) 5 spray MM Q2H PRN PRN PRN Reason: SORE THROAT Potassium Chloride (Potassium Chl Soln 20 Meq/15 Ml Udc) 40 meq PO DAILY [facility] Stop: 01/01/20 10:01 Last Admin: 12/31/19 10:36 Dose: 40 meq Documented by: Prochlorperazine Edisylate (Prochlorperazine 10 Mg/2 Ml Vial) 5 mg IV Q4H PRN PRN PRN Reason: Breakthrough Nausea/Vomiting Psyllium Hydrophilic Mucilloid (Psyllium 1 Packet) 1 packet PO DAILY [facility] Last Admin: 12/31/19 10:20 Dose: Not Given Documented by: Senna/Docusate Sodium (Senna/Docusate Sodium 1 Tablet) 2 tablet PO BID [facility] Last Admin: 12/31/19 10:33 Dose: 2 tablet Documented by: Sodium Chloride (0.9% Saline Lock 10 Ml Syringe) 10 - 40 ml IV UD PRN PRN Reason: Port-a-Cath (VAD) Flush Last Admin: 12/31/19 10:33 Dose: 10 ml Documented by: Sodium Chloride (0.9 % Nacl (Sterile) Posiflush 10 Ml) 10 - 40 ml IV UD PRN PRN Reason: Port access or dressing change Tbo-Filgrastim (Tbo-Filgrastim 300 Mcg/0.5 Ml Ml) 300 mcg SC DAILY [facility] Last Admin: 12/31/19 12:04 Dose: 300 mcg Documented by: Trazodone HCl (Trazodone 50 Mg Tablet) 50 mg PO QHS [facility] Last Admin: 12/30/19 20:39 Dose: 50 mg Documented by: Zolpidem Tartrate (Zolpidem Tartrate 5 Mg Tablet) 5 mg PO QHS PRN PRN PRN Reason: INSOMNIA STROKE Vital Signs/Narrative: Vital Signs Temp Pulse Resp BP Pulse Ox 12/31/19 12:11 97.6 F L 89 20 H 105/75 93 Medical Necessity - Tobacco Use Smoking Status: Light Smoker (<10/day) Assessment/Plan All Active Problems (Last Updated 04/10/18 @ 11:34 by Raine Huber) Elevated lactic acid level (Acute) Necrotizing pneumonia (Acute) Acute pulmonary embolism (Resolved 04/08/18) Chest pain (Resolved) Intermittent palpitations (Resolved) STEMI (ST elevation myocardial infarction) (Resolved) The patient is a 54 year old M with history of right lung cancer on chemotherapy, previous hospital admission between 11/15?11/18/2019 severe sepsis with no clear source of infection came to ED with near syncope and severe right-sided chest pain and CT chest finding suggestive of necrotizing pneumonia 1. Severe sepsis secondary to right apical necrotizing pneumonia with history of right lung cancer: Patient is being admitted in ICU. IV fluid resuscitation. Monitor intake and output. Repeat lactic acid. Pneumonia work-up including blood cultures x2, MRSA nasal screen, urinary antigens and sputum culture ordered. On broad-spectrum IV antibiotics vancomycin and Zosyn. CT chest and individually reviewed and discussed with the aluminum fabrication supervisor. It is significant for new necrotizing pneumonia 5.5 x 5.3 cm in right lung apex abating with paraseptal cyst of the right lung apex. Provider Network Mgr consult requested. 12/29: Patient to continue broad-spectrum antibiotic vancomycin and Zosyn. Urinary antigens are negative. Respiratory panel negative. Pulmonary urine culture did not show growth. MRSA nasal screen PCR negative. Patient is hemodynamically stable to be transferred to PCU. Discussed with the furniture repair technician. 12/30: ID consult requested for duration of antibiotic. Hypokalemia, potassium replacement. Hypomagnesemia corrected, repeat magnesium 1.8. 2. Right lung cancer complicated with right paratracheal mediastinal lymphadenopathy with cystic necrosis and right hilar lymphadenopathy with chronic right-sided pleuritic chest pain: Being managed by a [facility] oncologist Dr. Can. Right fourth chemotherapy on 12/24/2019. Exact histology, biology and staging of cancer not known. Lung biopsy not available. Exact chemotherapy regimen also not known. Patient is on heavy dose of morphine at home. Morphine sustained-release 15 mg 3 times daily along with morphine IR 15 p.o. every 4 hourly as needed for severe pain. 12/29: Patient was counseled against dependence of benzodiazepine or morphine. He states his oncologist gives him morphine. When he takes 14 tablets every day including benzodiazepine. 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 H&H 7.7/23.6 thousand. Platelet count 56,000. Patient does not have any external bleeding. Pancytopenia secondary to lung cancer on chemotherapy. 3. Coronary artery disease status post stent, paroxysmal A. fib and non-STEMI history: Cardiac medications including Eliquis resumed 4. 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 Other comorbidities include hypertension, chronic cigarette/nicotine use under, dyslipidemia, chronic alcohol use disorder: Patient still smokes 5 cigarettes/day. Nicotine use. Last alcoholic drink about 2 and half weeks ago. Nicotine patch. Advised quitting cigarette use and alcohol use. 6. VTE prophylaxis: Patient is on Eliquis 5 mg twice daily for proximal A. fib Advanced directive: Full code Total time of the visit including total time spent in counseling or coordination of care, (more than 50% of the total time, spent in obtaining medical information from nurses and other ancillary care providers,explaining to the patient about labs, imaging, diagnosis and management), discussion with aluminum fabrication supervisor, review of labs and imaging is 30 minutes. Microbiology Past 72 Hours 12/29/19 08:50 Urine, Clean Catch Urine Culture - Final Culture exhibits no growth. 12/29/19 07:31 Mucosa - Nose Respiratory Panel (PCR) - Final 12/29/19 14:00 Urine, Clean Catch Legionella Antigen - Final 12/29/19 14:00 Urine, Clean Catch Streptococcus pneumoniae Antigen (M - Final Laboratory Results 12/29/19 06:15: Diff Path Review Reviewed 12/30/19 03:20: Diff Path Review Reviewed 12/30/19 23:25: Vancomycin Trough 12.9 12/31/19 04:45: WBC 1.8 L, RBC 2.35 L, Hgb 7.7 L, Hct 23.6 L, MCV 100.4 H, MCH 32.8 H, MCHC 32.6, RDW Std Deviation 78.2 H, RDW Coeff of Radha 21.2 H, Plt Count 56 L, MPV 10.8, Neut % (Auto) Not Reportable, Absolute Neuts (auto) 1.5 L, Absolute Lymphs (auto) 0.18 L, Total Counted 100, Neutrophils % (Manual) 67, Band Neutrophils % 16 H, Lymphocytes % (Manual) 10 L, Monocytes % (Manual) 2, Metamyelocytes % 5 H, Diff Path Review Reviewed, Platelet Estimate MOD DEC, RBC Morphology N CYTIC, Hypochromasia 1+ 12/31/19 04:45: Sodium 136, Potassium 3.0 L, Chloride 101, Carbon Dioxide 29.0, Anion Gap 6, BUN 10, Creatinine 0.83, Estim Creat Clear Calc 113.98, Est GFR (MDRD) Af Amer 124, Est GFR (MDRD) Non-Af 102, BUN/Creatinine Ratio 12.0, Glucose 132 H, Calcium 8.0 L, Magnesium 1.8 Clinical Impression(s) from Imaging Studies Chest X-Ray 12/29/19 06:00 IMPRESSION: Stable chest. Stable right midlung opacity consistent with prior detected small pleural effusion in the fissure. Chest CTA 12/29/19 07:03 IMPRESSION: 1. New necrotizing pneumonia with traction bronchiectasis in the right lung apex measuring at least 5.5 x 5.3 cm and abuts the paraseptal cysts of the right lung apex. 2. Increasing groundglass opacities in the right upper lobe. 3. Right paratracheal mediastinal lymphadenopathy with cystic necrosis measures at least 4.8 x 4 x 5.5 cm and the right hilar lymphadenopathy measures at least 3.4 x 3.1 cm. Allowing for interobserver differences, these are unchanged. 4. No CTA evidence of pulmonary thromboemboli or thoracic aortic dissection. 5. Mild dilatation of the ascending aorta with a diameter of 3.9 cm versus 2.3 cm for the descending thoracic aorta. This is unchanged. 6. Decreased right pleural fluid and fluid along the right major fissure. 7. No other additional findings or changes since 12/18/2019. Inpatient E&M: 46220 Subs Hosp L2
--- NOTE | 2019-12-31 15:40 | CASEMGMT ---
DILIP FOWLER assessment: Phone interview with patient for initial transition planning/care coordination assessment. DILIP FOWLER introduced self and role at [facility], pt voices understanding and consents to assessment at this time. Pt is A/Ox4 at this time and answers all questions appropriately at this time. Pt is on room air at this time. Care providers, pharmacy, and demographics verified/updated at this time. Presentation: Near syncopal episode with right sided CP Admitting dx: Severe sepsis w/ necrotizing pna, Lung CA PCP: Thad Cazares Specialists: dequan Can at [facility] Preferred Pharmacy: [facility] Insurance: [employer] Prescription Benefit: [employer] Living Will/HPOA: Pt states has LW/HPOA and is aware that they are on file at [facility] at this time. Pt' sister, Rose Gibbs, is HPOA. LNOK: Rose Gibbs, sister/HPOA; Ro Lyons, sister Living Arrangements: Pt states lives alone in duplex and states no concerns at home at this time. Pt states is independent with ADL's. Transportation: Pt states drives self and states no transportation concerns at this time. DME/HHC: Pt states has a nebulizer at home and states no need for any further DME at this time. Pt states no hx of HHC or SNF in the past. Pt states is in the midst of chemo treatments and has 2 more to go then will hopefully be placed on maintenance chemo at that time and be able to go back to work. Pt states no concerns with going home at time of discharge. Pt states is currently not working d/t chemo treatment. Pt states still smokes 5 cigarettes/day and does not drink ETOH. Pt states no further concerns/needs at this time. CM to follow for any further discharge planning/needs. Advised pt to ask for CM if any further questions/concerns/needs arise, voices understanding. Pt Goal: Home Plan[place] DILIP FOWLER
--- NOTE | 2019-12-31 20:17 | PCM.HP.ID ---
Problem List (1) Necrotizing pneumonia Status: Acute Reason for Consult: pneumonia Consulted by: Dr. Sewell History of Present Illness: The patient is a 54 year old M with lung cancer, pt of Dr. Can at [facility], recent chemo, no port in place, presented 12/28 with several days acute onset cough, dyspnea, and R chest pain. No fever, no change in taste or smell, no n/v/d. CT showed possible necrotizing pneumonia, started on vanc/zosyn, feeling better, plan on leaving [facility] today. Full ROS performed and neg except as noted above. - Medical History Past Medical History (Chronic Problems): Chronic Problems (Last Updated 04/10/18 @ 11:33 by Raine Huber) PAF (paroxysmal atrial fibrillation) (Chronic) COPD (chronic obstructive pulmonary disease) (Chronic) Lung cancer (Chronic) Chest pain (Chronic) Pharyngitis (Chronic) Essential (primary) hypertension (Chronic) Nicotine dependence (Chronic) HLD (hyperlipidemia) (Chronic) Alcohol abuse (Chronic) NSTEMI (non-ST elevated myocardial infarction) (Chronic 04/07/18) Atherosclerosis of coronary artery of [place] heart with angina pectoris (Chronic) BMS-Prox and Distal RCA 12/23/16 History of coronary artery stent placement (Chronic 12/23/16) BMS-Prox and Distal RCA 12/23/16 Allergies/Adverse Reactions: Allergies No Known Allergies Allergy (Verified 12/29/19 05:59) Home Medications: Ambulatory Orders Medication Instructions Recorded Aspirin [Aspirin, Baby] 162 mg PO DAILY@0800 10/03/17 Clonazepam [Klonopin] 0.5 mg PO Q8H PRN PRN 09/08/19 Escitalopram Oxalate [Lexapro] 10 mg PO DAILY 09/08/19 Folic Acid 1 mg PO DAILY 09/08/19 Morphine [Morphine IR] 15 mg PO Q4H PRN PRN 09/08/19 Metoprolol Tartrate [Lopressor 50 mg PO DAILY 10/28/19 (beta luis)] Albuterol IH (ProAir) [Proair Hfa] 1 - 2 puff INHALATION Q4H PRN PRN 10/30/19 #1 inhaler Apixaban [Eliquis] 5 mg PO BID #0 10/30/19 Gabapentin [Neurontin] 400 mg PO TIDCM #90 cap 10/30/19 Pantoprazole Sodium [Protonix] 40 mg PO BID #60 tab 10/30/19 Phenol/Sodium Phenolate 5 spray MM Q2H PRN PRN #1 bottle 10/30/19 [Chloraseptic (BKC)] Atorvastatin Calcium 80 mg PO DAILY 11/09/19 traZODone [Desyrel] 50 mg PO QHS 11/09/19 morphine SR tablet [Ms Contin] 15 mg BC TID 12/29/19 - Social History Tobacco Use: cigarettes SMOKING STATUS:: Current every day smoker Vital Signs Temp Pulse Resp BP Pulse Ox 97.6 F L 87 18 106/76 93 12/31/19 18:27 12/31/19 18:50 12/31/19 18:27 12/31/19 18:27 12/31/19 18:27 Oxygen Delivery Method Room Air Weight: 79.2 kg Body Mass Index (BMI) 21.4 Microbiology Past 72 Hours 12/29/19 08:50 Urine Culture - Final Urine, Clean Catch Culture exhibits no growth. 12/29/19 07:31 Respiratory Panel (PCR) - Final Mucosa - Nose 12/29/19 14:00 Legionella Antigen - Final Urine, Clean Catch 12/29/19 14:00 Streptococcus pneumoniae Antigen (M - Final Urine, Clean Catch Laboratory Tests Past 24 Hrs 12/29/19 12/30/19 12/30/19 06:15 03:20 23:25 WBC RBC Hgb Hct MCV MCH MCHC RDW Std Deviation RDW Coeff of Radha Plt Count MPV Neut % (Auto) Absolute Neuts (auto) Absolute Lymphs (auto) Total Counted Neutrophils % (Manual) Band Neutrophils % Lymphocytes % (Manual) Monocytes % (Manual) Metamyelocytes % Diff Path Review Reviewed Reviewed Platelet Estimate RBC Morphology Hypochromasia Sodium Potassium Chloride Carbon Dioxide Anion Gap BUN Creatinine Estim Creat Clear Calc Est GFR (MDRD) Af Amer Est GFR (MDRD) Non-Af BUN/Creatinine Ratio Glucose Calcium Magnesium Vancomycin Trough 12.9 12/31/19 12/31/19 04:45 04:45 WBC 1.8 L RBC 2.35 L Hgb 7.7 L Hct 23.6 L MCV 100.4 H MCH 32.8 H MCHC 32.6 RDW Std Deviation 78.2 H RDW Coeff of Radha 21.2 H Plt Count 56 L MPV 10.8 Neut % (Auto) Not Reportable Absolute Neuts (auto) 1.5 L Absolute Lymphs (auto) 0.18 L Total Counted 100 Neutrophils % (Manual) 67 Band Neutrophils % 16 H Lymphocytes % (Manual) 10 L Monocytes % (Manual) 2 Metamyelocytes % 5 H Diff Path Review Reviewed Platelet Estimate MOD DEC RBC Morphology N CYTIC Hypochromasia 1+ Sodium 136 Potassium 3.0 L Chloride 101 Carbon Dioxide 29.0 Anion Gap 6 BUN 10 Creatinine 0.83 Estim Creat Clear Calc 113.98 Est GFR (MDRD) Af Amer 124 Est GFR (MDRD) Non-Af 102 BUN/Creatinine Ratio 12.0 Glucose 132 H Calcium 8.0 L Magnesium 1.8 Vancomycin Trough - Other Studies Radiology: [] reviewed Other Studies: [] Route of nutrition/ use of supplements: [] Nutritional Intake: [] IV Site: [] Bhatti Catheter: [] - Physical Exam General: Alert, Oriented x3, Cooperative, No apparent distress HEENT: Atraumatic, PERRLA, EOMI Neck: Supple, No Nodes Lungs: Rhonchi Cardiovascular: Regular rate, Regular Rhythm Abdomen: Soft, Non Tender, Non-Distended Extremities: No edema Skin: No rashes IV Site: Peripheral, without redness Musculoskeletal: No Tenderness to Palpation of Joints or Extremities Neurological: Cranial nerves II-XII grossly intact - Assessment/Plan Antibiotics: [] Assessment/Plan: [] Active and Suspected Problems (Last Updated 04/10/18 @ 11:34 by Raine Huber) Elevated lactic acid level (Acute) Necrotizing pneumonia (Acute) MRSA pcr neg. Will stop vanc, narrow zosyn to unasyn. Plan on po abx at discharge. Improving overall. ANC better. Likely can stop GCSF. Will follow, thank you
[2019-12-31] MEDS: traZODone 50 MG Tablet PO (21:13)
[2020-01-01] MEDS: LORazepam 1 MG Tablet PO ×4 (00:30→19:48)
[2020-01-01] MEDS: Zolpidem Tartrate 5 MG Tablet PO ×2 (00:30→23:34)
[2020-01-01 03:00] VITALS: BP 99/61; PULSE 93; RESP 18; TEMP 36.4; O2SAT 93
[2020-01-01] MEDS: oxyCODONE 5 MG Tablet PO ×6 (03:02→23:40)
[2020-01-01] MEDS: HYDROmorphone 1 MG/ML Syringe IV ×5 (04:28→21:33)
[2020-01-01] MEDS: morphine SR 15 MG Tablet PO ×3 (06:15→21:31)
--- NOTE | 2020-01-01 07:54 | PCM.DC ---
- Discharge Diagnoses Current Active Problems: Current Active and Chronic Problems (Last Updated 04/10/18 @ 11:33 by Raine Huber) Elevated lactic acid level (Acute) PAF (paroxysmal atrial fibrillation) (Chronic) COPD (chronic obstructive pulmonary disease) (Chronic) Lung cancer (Chronic) Chest pain (Chronic) Pharyngitis (Chronic) Necrotizing pneumonia (Acute) Essential (primary) hypertension (Chronic) Nicotine dependence (Chronic) HLD (hyperlipidemia) (Chronic) Alcohol abuse (Chronic) NSTEMI (non-ST elevated myocardial infarction) (Chronic 04/07/18) Atherosclerosis of coronary artery of [place] heart with angina pectoris (Chronic) BMS-Prox and Distal RCA 12/23/16 History of coronary artery stent placement (Chronic 12/23/16) BMS-Prox and Distal RCA 12/23/16 Allergies/Adverse Reactions: Allergies No Known Allergies Allergy (Verified 12/29/19 05:59) Medications to take at Discharge Aspirin [Aspirin, Baby] 162 mg PO DAILY@0800 10/03/17 Clonazepam [Klonopin] 0.5 mg PO Q8H PRN PRN 09/08/19 Escitalopram Oxalate [Lexapro] 10 mg PO DAILY 09/08/19 Folic Acid 1 mg PO DAILY 09/08/19 Morphine [Morphine IR] 15 mg PO Q4H PRN PRN 09/08/19 Metoprolol Tartrate [Lopressor (beta luis)] 50 mg PO DAILY 10/28/19 Albuterol IH (ProAir) [Proair Hfa] 1 - 2 puff INHALATION Q4H PRN PRN #1 inhaler 10/30/19 Apixaban [Eliquis] 5 mg PO BID #0 10/30/19 Gabapentin [Neurontin] 400 mg PO TIDCM #90 cap 10/30/19 Pantoprazole Sodium [Protonix] 40 mg PO BID #60 tab 10/30/19 Phenol/Sodium Phenolate [Chloraseptic (BKC)] 5 spray MM Q2H PRN PRN #1 bottle 10/30/19 Atorvastatin Calcium 80 mg PO DAILY 11/09/19 traZODone [Desyrel] 50 mg PO QHS 11/09/19 morphine SR tablet [Ms Contin] 15 mg BC TID 12/29/19 Primary Care Physician: Care Physician,No Primary [NON-STAFF] - Test Results: Test results from this visit will be discussed in further detail at your follow-up appointment, if applicable.
--- NOTE | 2020-01-01 07:55 | DS.PCM_ITS ---
Discharge Date and Diagnosis - Problem List Patient Problems: Active and Suspected Problems (Last Updated 04/10/18 @ 11:34 by Raine Huber) Elevated lactic acid level (Acute) Necrotizing pneumonia (Acute) Date of Admission: 12/29/19 - Primary Discharge Diagnosis Acute Problems: Active Problems (Last Updated 04/10/18 @ 11:34 by Raine Huber) Elevated lactic acid level (Acute) Necrotizing pneumonia (Acute) - Secondary Discharge Diagnosis Chronic Problems: Chronic Problems (Last Updated 04/10/18 @ 11:33 by Raine Huber) PAF (paroxysmal atrial fibrillation) (Chronic) COPD (chronic obstructive pulmonary disease) (Chronic) Lung cancer (Chronic) Chest pain (Chronic) Pharyngitis (Chronic) Essential (primary) hypertension (Chronic) Nicotine dependence (Chronic) HLD (hyperlipidemia) (Chronic) Alcohol abuse (Chronic) NSTEMI (non-ST elevated myocardial infarction) (Chronic 04/07/18) Atherosclerosis of coronary artery of [place] heart with angina pectoris (Chronic) BMS-Prox and Distal RCA 12/23/16 History of coronary artery stent placement (Chronic 12/23/16) BMS-Prox and Distal RCA 12/23/16 Hospital Course and Treatment Operations: None Summary of Care Provided: The patient is a 54 year old M [] Patient Problems: Active and Suspected Problems (Last Updated 04/10/18 @ 11:34 by Raine Huber) Elevated lactic acid level (Acute) Necrotizing pneumonia (Acute) - Physical Exam Vitals/I&O's: Vital Signs Temp Pulse Resp BP Pulse Ox 97.6 F L 93 18 99/61 93 01/01/20 03:00 01/01/20 03:00 01/01/20 03:00 01/01/20 03:00 01/01/20 03:00 Oxygen Delivery Method Room Air Weight: 174 lb 9.698 oz Body Mass Index (BMI) 21.4 Intake and Output for Last 24 Hours 12/30/19 12/31/19 01/01/20 23:59 23:59 23:59 Intake Total 2445 / 2565 2141 / 2141 Output Total 2525 / 2825 1722 / 1722 Balance -80 / -260 419 / 419 Microbiology Past 72 Hours 12/29/19 08:50 Urine, Clean Catch Urine Culture - Final Culture exhibits no growth. 12/29/19 07:31 Mucosa - Nose Respiratory Panel (PCR) - Final 12/29/19 14:00 Urine, Clean Catch Legionella Antigen - Final 12/29/19 14:00 Urine, Clean Catch Streptococcus pneumoniae Antigen (M - Final Laboratory Results 12/29/19 06:15: Diff Path Review Reviewed 12/30/19 03:20: Diff Path Review Reviewed 12/31/19 04:45: Diff Path Review Reviewed Current Medications Acetaminophen (Acetaminophen 325 Mg Tablet) 650 mg PO Q6H PRN PRN PRN Reason: Pain Score 1-10/Temp > 100.7 F Al Hydroxide/Mg Hydroxide (Mag Hydrox/Al Hydrox/Simeth 30 Ml Udc) 30 ml PO Q6H PRN PRN PRN Reason: Gastric Burning Albuterol/Ipratropium (Ipratropium/Albuterol Sulfate 3 Ml Ampul.Neb) 3 ml INHALATION Q4H.RT PRN PRN Reason: sob Apixaban (Apixaban 5 Mg Tablet) 5 mg PO BID [facility] Last Admin: 12/31/19 21:13 Dose: 5 mg Documented by: Aspirin (Aspirin 81 Mg Tab.Chew) 162 mg PO DAILY@0800 [facility] Last Admin: 12/31/19 08:44 Dose: 162 mg Documented by: Atorvastatin Calcium (Atorvastatin Calcium 80 Mg Tablet) 80 mg PO DAILY@2200 [facility] Last Admin: 12/31/19 21:14 Dose: Not Given Documented by: Bisacodyl (Bisacodyl 5 Mg Tablet) 5 mg PO DAILY PRN PRN PRN Reason: Constipation Escitalopram Oxalate (Escitalopram Oxalate 10 Mg Tablet) 10 mg PO DAILY [facility] Last Admin: 12/31/19 12:03 Dose: 10 mg Documented by: Folic Acid (Folic Acid 1 Mg Tablet) 1 mg PO DAILYCM [facility] Last Admin: 12/31/19 08:44 Dose: 1 mg Documented by: Gabapentin (Gabapentin 400 Mg Capsule) 400 mg PO TIDCM [facility] Last Admin: 12/31/19 18:22 Dose: 400 mg Documented by: Guaifenesin (Guaifenesin 1,200 Mg Tablet) 1,200 mg PO BID [facility] Last Admin: 12/31/19 21:14 Dose: Not Given Documented by: Heparin Sodium (Beef Lung) (Heparin Pf Lock 10 Units/Ml 50 Units/5 Ml Syringe) 50 units IV UD PRN PRN Reason: Port-a-Cath (VAD)Heparin Flush Hydromorphone HCl (Hydromorphone 1 Mg/Ml Syringe) 1 mg IV Q4H PRN PRN PRN Reason: Pain Score 6-10 Last Admin: 01/01/20 04:28 Dose: 1 mg Documented by: Sodium Chloride () 250 mls @ 15 mls/hr IV .[id number] PRN PRN Reason: Saline Flush Sodium Chloride () 250 mls @ 15 mls/hr IV .[id number] PRN PRN Reason: Additional IVPB Infusion Ampicillin Sodium/Sulbactam (Sodium 3 gm/ Sodium Chloride) 112 mls @ 150 mls/hr IV Q8 [facility] Last Admin: 01/01/20 06:16 Dose: 150 mls/hr Documented by: Lorazepam (Lorazepam 1 Mg Tablet) 1 mg PO Q6H PRN PRN PRN Reason: ANXIETY Last Admin: 01/01/20 07:07 Dose: 1 mg Documented by: Metoprolol Succinate (Metoprolol(Xl)Succ 25 Mg Tablet) 25 mg PO DAILY [facility] Last Admin: 12/31/19 12:03 Dose: Not Given Documented by: Morphine Sulfate (Morphine Sr 15 Mg Tablet) 15 mg PO TID [facility] Last Admin: 01/01/20 06:15 Dose: 15 mg Documented by: Nitroglycerin (Nitroglycerin (Inpatient Use) 0.4 Mg Tab.Subl) 0.4 mg SUBLINGUAL Q5M PRN PRN Reason: CARDIAC/CHEST PAIN Nutritional Formula (Lactose Free) (Ensure Enlive 120 Ml Liquid) 120 ml PO 4X/DAY [facility] Last Admin: 12/31/19 21:13 Dose: Not Given Documented by: Ondansetron HCl (Ondansetron 4 Mg/2 Ml Vial) 4 mg IV Q8H PRN PRN PRN Reason: NAUSEA/VOMITING Oxycodone HCl (Oxycodone 5 Mg Tablet) 5 mg PO Q4H PRN PRN PRN Reason: Pain Score 4-5 Last Admin: 01/01/20 07:07 Dose: 5 mg Documented by: Pantoprazole Sodium (Pantoprazole Sodium 40 Mg Tablet) 40 mg PO BID [facility] Last Admin: 12/31/19 21:14 Dose: 40 mg Documented by: Phenol/Menthol (Phenol/Sodium Phenolate 180ml) 5 spray MM Q2H PRN PRN PRN Reason: SORE THROAT Potassium Chloride (Potassium Chl Soln 20 Meq/15 Ml Udc) 40 meq PO DAILY [facility] Stop: 01/01/20 10:01 Last Admin: 12/31/19 10:36 Dose: 40 meq Documented by: Prochlorperazine Edisylate (Prochlorperazine 10 Mg/2 Ml Vial) 5 mg IV Q4H PRN PRN PRN Reason: Breakthrough Nausea/Vomiting Psyllium Hydrophilic Mucilloid (Psyllium 1 Packet) 1 packet PO DAILY [facility] Last Admin: 12/31/19 10:20 Dose: Not Given Documented by: Senna/Docusate Sodium (Senna/Docusate Sodium 1 Tablet) 2 tablet PO BID [facility] Last Admin: 12/31/19 21:14 Dose: 2 tablet Documented by: Sodium Chloride (0.9% Saline Lock 10 Ml Syringe) 10 - 40 ml IV UD PRN PRN Reason: Port-a-Cath (VAD) Flush Last Admin: 12/31/19 18:49 Dose: 10 ml Documented by: Sodium Chloride (0.9 % Nacl (Sterile) Posiflush 10 Ml) 10 - 40 ml IV UD PRN PRN Reason: Port access or dressing change Tbo-Filgrastim (Tbo-Filgrastim 300 Mcg/0.5 Ml Ml) 300 mcg SC DAILY [facility] Last Admin: 12/31/19 12:04 Dose: 300 mcg Documented by: Trazodone HCl (Trazodone 50 Mg Tablet) 50 mg PO QHS [facility] Last Admin: 12/31/19 21:13 Dose: 50 mg Documented by: Zolpidem Tartrate (Zolpidem Tartrate 5 Mg Tablet) 5 mg PO QHS PRN PRN PRN Reason: INSOMNIA Last Admin: 01/01/20 00:30 Dose: 5 mg Documented by: Home Medications: Medications to take at Discharge Aspirin [Aspirin, Baby] 162 mg PO DAILY@0800 10/03/17 Clonazepam [Klonopin] 0.5 mg PO Q8H PRN PRN 09/08/19 Escitalopram Oxalate [Lexapro] 10 mg PO DAILY 09/08/19 Folic Acid 1 mg PO DAILY 09/08/19 Morphine [Morphine IR] 15 mg PO Q4H PRN PRN 09/08/19 Metoprolol Tartrate [Lopressor (beta luis)] 50 mg PO DAILY 10/28/19 Albuterol IH (ProAir) [Proair Hfa] 1 - 2 puff INHALATION Q4H PRN PRN #1 inhaler 10/30/19 Apixaban [Eliquis] 5 mg PO BID #0 10/30/19 Gabapentin [Neurontin] 400 mg PO TIDCM #90 cap 10/30/19 Pantoprazole Sodium [Protonix] 40 mg PO BID #60 tab 10/30/19 Phenol/Sodium Phenolate [Chloraseptic (BKC)] 5 spray MM Q2H PRN PRN #1 bottle 10/30/19 Atorvastatin Calcium 80 mg PO DAILY 11/09/19 traZODone [Desyrel] 50 mg PO QHS 11/09/19 morphine SR tablet [Ms Contin] 15 mg BC TID 12/29/19 Primary Care Physician: Care Physician,No Primary [NON-STAFF] - Medical Necessity - Tobacco Use Smoking Status: Light Smoker (<10/day)
--- NOTE | 2020-01-01 08:39 | PN_ITS ---
Subjective: Patient did well overnight. No acute issues were reported. Patient currently is hemodynamically stable on room air. Patient does have his chronic pain issues, but does not believe these are significantly changed from baseline. General: Alert, Oriented x3, Cooperative - Intermittently HEENT: Atraumatic, PERRLA, EOMI, Normocephalic, - - Slight scleral injection Oral: Moist Mucosa, No Gingival or Mucosal Lesions/ Ulcerations Neck: Supple, No JVD, No Nodes, Trachea Midline Lungs: No rhonchi, No wheeze, No rales, Diminished Cardiovascular: Normal S1, Normal S2, No murmurs, No rub noted, No Gallop, Tachycardic Abdomen: Bowel Sounds Present, Soft, Non Tender, Non-Distended Extremities: No clubbing, No cyanosis, No edema Skin: - - No change from previous Musculoskeletal: No Tenderness to Palpation of Joints or Extremities Lymphatic: No Cervical, Supraclavicular, or Inguinal Adenopathy Neurological: Cranial nerves II-XII grossly intact, Neuro grossly intact, Motor Exam 5/5 strength throughout Psych/Mental Status: Appropriate, Flat Affect Vital Signs Temp Pulse Resp BP Pulse Ox 36.4 C L 93 18 99/61 93 01/01/20 03:00 01/01/20 03:00 01/01/20 03:00 01/01/20 03:00 01/01/20 03:00 Oxygen Delivery Method Room Air Weight: 79.2 kg Body Mass Index (BMI) 21.4 Intake and Output for Last 24 Hours 12/30/19 12/31/19 01/01/20 23:59 23:59 23:59 Intake Total 2445 / 2565 2141 / 2141 Output Total 2525 / 2825 1722 / 1722 Balance -80 / -260 419 / 419 Labs (Last 48 Hours) 12/29/19 12/30/19 12/30/19 06:15 03:20 23:25 WBC RBC Hgb Hct MCV MCH MCHC RDW Std Deviation RDW Coeff of Radha Plt Count MPV Neut % (Auto) Absolute Neuts (auto) Absolute Lymphs (auto) Total Counted Neutrophils % (Manual) Band Neutrophils % Lymphocytes % (Manual) Monocytes % (Manual) Metamyelocytes % Diff Path Review Reviewed Reviewed Platelet Estimate RBC Morphology Hypochromasia Sodium Potassium Chloride Carbon Dioxide Anion Gap BUN Creatinine Estim Creat Clear Calc Est GFR (MDRD) Af Amer Est GFR (MDRD) Non-Af BUN/Creatinine Ratio Glucose Calcium Magnesium Vancomycin Trough 12.9 12/31/19 12/31/19 04:45 04:45 WBC 1.8 L RBC 2.35 L Hgb 7.7 L Hct 23.6 L MCV 100.4 H MCH 32.8 H MCHC 32.6 RDW Std Deviation 78.2 H RDW Coeff of Radha 21.2 H Plt Count 56 L MPV 10.8 Neut % (Auto) Not Reportable Absolute Neuts (auto) 1.5 L Absolute Lymphs (auto) 0.18 L Total Counted 100 Neutrophils % (Manual) 67 Band Neutrophils % 16 H Lymphocytes % (Manual) 10 L Monocytes % (Manual) 2 Metamyelocytes % 5 H Diff Path Review Reviewed Platelet Estimate MOD DEC RBC Morphology N CYTIC Hypochromasia 1+ Sodium 136 Potassium 3.0 L Chloride 101 Carbon Dioxide 29.0 Anion Gap 6 BUN 10 Creatinine 0.83 Estim Creat Clear Calc 113.98 Est GFR (MDRD) Af Amer 124 Est GFR (MDRD) Non-Af 102 BUN/Creatinine Ratio 12.0 Glucose 132 H Calcium 8.0 L Magnesium 1.8 Vancomycin Trough Microbiology 12/29/19 06:40 Blood Culture (Wb) - Arm Left Blood Culture - Preliminary No growth in 48 hours. 12/29/19 06:44 Blood Culture (Wb) - Left Hand Blood Culture - Preliminary No growth in 48 hours. 12/29/19 08:50 Urine, Clean Catch Urine Culture - Final Culture exhibits no growth. Medical Necessity - Tobacco Use Smoking Status: Light Smoker (<10/day) Assessment/Plan All Active Problems (Last Updated 04/10/18 @ 11:34 by Raine Huber) Elevated lactic acid level (Acute) Necrotizing pneumonia (Acute) Acute pulmonary embolism (Resolved 04/08/18) Chest pain (Resolved) Intermittent palpitations (Resolved) STEMI (ST elevation myocardial infarction) (Resolved) RECOMMENDATIONS: 1. Antibiotics per infectious disease 2. Follow-up with program research specialist in [place] on discharge 3. Continue Granix per infectious disease 4. Continue baseline, outpatient pain regimen. 5. Encourage incentive spirometer use and mobilize patient as tolerated. 6. Okay to discharge from a pulmonary/critical care perspective. Will sign off. IMPRESSIONS: 1. Chest pain/necrotizing pneumonia Unclear etiology, although suspect related to underlying lung cancer and/or necrotizing pneumonia. Continue baseline, outpatient pain control regimen. Continue antimicrobials as ordered. The patient is currently maintaining appropriate oxygen saturations on room air. Infectious diseases consultation is pending. Patient's nasal MRSA was negative so vancomycin was discontinued. Infectious disease making antibiotic recommendations. Therapy is complicated by immunosuppression associated with lung cancer. Patient can follow-up with program research specialist at [facility]. 2. Pancytopenia/history of lung cancer The patient is currently under the management of oncology at [facility], having last received chemotherapy earlier in the week. Recommend continued outpatient follow-up. Would defer to infectious disease on whether Granix could be discontinued. 3. Questionable COPD of unknown severity/chronic tobacco dependency The patient has a self-reported history of COPD of unknown severity along with an extensive tobacco abuse history. Tobacco cessation counseling was provided. Nicotine replacement therapy can be utilized while the patient is admitted to the hospital. Bronchodilators are reasonable for now 4. History of coronary artery disease status post PCI/hypertension/hyperlipidemia/chronic pain syndrome/anxiety/depression Complicates care, management, recovery and prognosis. Recommend continuing outpatient pain and anxiety regimen. Inpatient E&M: 86529 Subs Hosp L2
[2020-01-01 08:43] VITALS: BP 97/60; PULSE 100; RESP 18; TEMP 36.6; O2SAT 92
[2020-01-01] MEDS: Aspirin 81 MG TAB.CHEW 162 MG PO (08:57)
[2020-01-01] MEDS: APIXABAN 5 MG TABLET PO (08:58)
[2020-01-01] MEDS: Gabapentin 400 MG Capsule PO ×3 (08:58→17:07)
[2020-01-01] MEDS: Escitalopram Oxalate 10 MG Tablet PO (08:59)
[2020-01-01] MEDS: Pantoprazole Sodium 40 MG Tablet PO (08:59)
[2020-01-01] MEDS: Senna/Docusate Sodium 1 Tablet 2 TABLET PO ×2 (08:59→21:45)
[2020-01-01] MEDS: Folic Acid 1 MG Tablet PO (09:00)
[2020-01-01] MEDS: TBO-FILGRASTIM 300 MCG/0.5 ML ML SC (09:20)
[2020-01-01 09:42] LABS: Absolute Lymphocyte Count 0.24 X10^3/uL (0.83-4.51); Absolute Neutrophil Count 0.6 X10^3/uL (2.0-7.7); Eosinophil# 0.01 X10^3/uL; Hematocrit 22.4 % (40-54); Hemoglobin 7.3 g/dL (13.0-16.5); Lymphocyte # 0.24 X10^3/ul (4.0); Lymphocyte % 23.3 % (19-41); Mean Corp Hgb Conc 32.6 g/dL (32-36); Mean Corpuscular Hgb 32.3 pg (27.0-32.0); Mean Corpuscular Volume 99.1 fL (80-94); Mean Platelet Vol. 12.4 fl (6.2-12.0); Monocyte# 0.14 X10^3/uL; Monocyte% 13.6 % (0-10); NRBC Flagged by Analyzer 0 % (0-5); Neutrophil # 0.63 X10^3/uL (2.7-7.7); Neutrophil % 61.1 % (47-70); POSITIVE COUNT YES; POSITIVE DIFFERENTIAL YES; POSITIVE MORPHOLOGY YES; RBC Distribution Width SD 75.6 fl (35.1-43.9); Red Blood Count 2.26 M/mm3 (4.6-6.2)
[2020-01-01 09:49] LABS: Differential Indicated SCAN CRITERIA MET; Platelet Count 42 K/mm3 (150-450)
[2020-01-01 10:04] LABS: Anion Gap 5 (5-15); BUN 10 mg/dL (7-18); BUN/Creat Ratio 11.5 RATIO (10-20); Calcium,Total 8.3 mg/dL (8.5-10.1); Chloride 106 mmol/L (98-107); Creatinine, Serum 0.87 mg/dL (0.70-1.30); EST Glomerular Filtration Rate 97 mL/min (>60); Est Glom Filt Rate - Afr Amer 118 mL/min (>60); Estimated Creatinine Clearance 108.74 ml/min; Glucose 130 mg/dL (74-106); Potassium 3.2 mmol/L (3.5-5.1); Sodium Level 140 mmol/L (136-145)
[2020-01-01 10:10] LABS: Magnesium 1.2 mg/dL (1.6-2.6); Phosphorus 2.8 mg/dL (2.5-4.9)
[2020-01-01 10:16] LABS: Anisocytosis 2+; Differential Comment SCANNED; Macrocytosis 1+; Platelet Estimate MOD DEC (ADEQ); Red Cell Morphology N CHROM NORMAL (NORM C&C)
--- NOTE | 2020-01-01 11:21 | PN.ID_ITS ---
Patient Problems: Active and Suspected Problems (Last Updated 04/10/18 @ 11:34 by Raine Huber) Elevated lactic acid level (Acute) Necrotizing pneumonia (Acute) Subjective: Feeling ok, no SOB, blood counts worse. No fever. - Physical Exam Vitals/I&O's: Vital Signs Temp Pulse Resp BP Pulse Ox 97.8 F 100 18 97/60 92 01/01/20 08:43 01/01/20 08:43 01/01/20 08:43 01/01/20 08:43 01/01/20 08:43 Oxygen Delivery Method Room Air Weight: 79.2 kg Body Mass Index (BMI) 21.4 Intake and Output for Last 24 Hours 12/30/19 12/31/19 01/01/20 23:59 23:59 23:59 Intake Total 2445 / 2565 2141 / 2141 592 / 592 Output Total 2525 / 2825 1722 / 1722 Balance -80 / -260 419 / 419 592 / 592 General: Alert, Cooperative, No apparent distress Lungs: Diminished, Rhonchi - faint Cardiovascular: Regular rate, Regular Rhythm Abdomen: Soft, Non Tender, Non-Distended Skin: No rashes Microbiology Past 72 Hours 12/29/19 06:40 Blood Culture (Wb) - Arm Left Blood Culture - Preliminary No growth in 48 hours. 12/29/19 06:44 Blood Culture (Wb) - Left Hand Blood Culture - Preliminary No growth in 48 hours. 12/29/19 08:50 Urine, Clean Catch Urine Culture - Final Culture exhibits no growth. 12/29/19 07:31 Mucosa - Nose Respiratory Panel (PCR) - Final 12/29/19 14:00 Urine, Clean Catch Legionella Antigen - Final 12/29/19 14:00 Urine, Clean Catch Streptococcus pneumoniae Antigen (M - Final Laboratory Results 12/29/19 06:15: Diff Path Review Reviewed 12/30/19 03:20: Diff Path Review Reviewed 12/31/19 04:45: Diff Path Review Reviewed 01/01/20 09:30: WBC 1.0 L*, RBC 2.26 L, Hgb 7.3 L, Hct 22.4 L, MCV 99.1 H, MCH 32.3 H, MCHC 32.6, RDW Std Deviation 75.6 H, RDW Coeff of Radha 21.0 H, Plt Count 42 L*, MPV 12.4 H, Immature Gran % (Auto) 1.000 H, Neut % (Auto) 61.1, Lymph % (Auto) 23.3, [place] % (Auto) 13.6 H, Eos % (Auto) 1.0, Baso % (Auto) 0.0, Absolute Neuts (auto) 0.6 L, Absolute Lymphs (auto) 0.24 L, Nucleated RBC % 0, Differential Comment SCANNED, Diff Path Review May foll, Platelet Estimate MOD DEC, RBC Morphology N CHROM, Anisocytosis 2+, Macrocytosis 1+ 01/01/20 09:30: Sodium 140, Potassium 3.2 L, Chloride 106, Carbon Dioxide 29.0, Anion Gap 5, BUN 10, Creatinine 0.87, Estim Creat Clear Calc 108.74, Est GFR (MDRD) Af Amer 118, Est GFR (MDRD) Non-Af 97, BUN/Creatinine Ratio 11.5, Glucose 130 H, Calcium 8.3 L 01/01/20 09:30: Phosphorus 2.8, Magnesium 1.2 L Current Medications Acetaminophen (Acetaminophen 325 Mg Tablet) 650 mg PO Q6H PRN PRN PRN Reason: Pain Score 1-10/Temp > 100.7 F Al Hydroxide/Mg Hydroxide (Mag Hydrox/Al Hydrox/Simeth 30 Ml Udc) 30 ml PO Q6H PRN PRN PRN Reason: Gastric Burning Albuterol/Ipratropium (Ipratropium/Albuterol Sulfate 3 Ml Ampul.Neb) 3 ml INHALATION Q4H.RT PRN PRN Reason: sob Atorvastatin Calcium (Atorvastatin Calcium 80 Mg Tablet) 80 mg PO DAILY@2200 [facility] Last Admin: 12/31/19 21:14 Dose: Not Given Documented by: Bisacodyl (Bisacodyl 5 Mg Tablet) 5 mg PO DAILY PRN PRN PRN Reason: Constipation Escitalopram Oxalate (Escitalopram Oxalate 10 Mg Tablet) 10 mg PO DAILY [facility] Last Admin: 01/01/20 08:59 Dose: 10 mg Documented by: Folic Acid ([facility] 1 Mg Tablet) [facility] Last Admin: 01/01/20 09:00 Dose: 1 mg Documented by: Gabapentin (Gabapentin 400 Mg Capsule) 400 mg PO TIDCM [facility] Last Admin: 01/01/20 08:58 Dose: 400 mg Documented by: Guaifenesin (Guaifenesin 1,200 Mg Tablet) 1,200 mg PO BID [facility] Last Admin: 01/01/20 08:54 Dose: Not Given Documented by: Hydromorphone HCl (Hydromorphone 1 Mg/Ml Syringe) 1 mg IV Q4H PRN PRN PRN Reason: Pain Score 6-10 Last Admin: 01/01/20 09:20 Dose: 1 mg Documented by: Sodium Chloride () 250 mls @ 15 mls/hr IV .[id number] PRN PRN Reason: Saline Flush Sodium Chloride () 250 mls @ 15 mls/hr IV .[id number] PRN PRN Reason: Additional IVPB Infusion Ampicillin Sodium/Sulbactam (Sodium 3 gm/ Sodium Chloride) 112 mls @ 150 mls/hr IV Q8 [facility] Last Infusion: 01/01/20 07:55 Dose: Infused Documented by: Potassium Chloride () 10 meq in 100 mls @ 100 mls/hr IV BOLUS Q1H [facility] Stop: 01/01/20 14:44 Lorazepam (Lorazepam 1 Mg Tablet) 1 mg PO Q6H PRN PRN PRN Reason: ANXIETY Last Admin: 01/01/20 07:07 Dose: 1 mg Documented by: Metoprolol Succinate (Metoprolol(Xl)Succ 25 Mg Tablet) 25 mg PO DAILY [facility] Last Admin: 01/01/20 09:07 Dose: Not Given Documented by: Morphine Sulfate (Morphine Sr 15 Mg Tablet) 15 mg PO TID [facility] Last Admin: 01/01/20 06:15 Dose: 15 mg Documented by: Nitroglycerin (Nitroglycerin (Inpatient Use) 0.4 Mg Tab.Subl) 0.4 mg SUBLINGUAL Q5M PRN PRN Reason: CARDIAC/CHEST PAIN Nutritional Formula (Lactose Free) (Ensure Enlive 120 Ml Liquid) 120 ml PO 4X/DAY [facility] Last Admin: 01/01/20 08:53 Dose: Not Given Documented by: Ondansetron HCl (Ondansetron 4 Mg/2 Ml Vial) 4 mg IV Q8H PRN PRN PRN Reason: NAUSEA/VOMITING Oxycodone HCl (Oxycodone 5 Mg Tablet) 5 mg PO Q4H PRN PRN PRN Reason: Pain Score 4-5 Last Admin: 01/01/20 07:07 Dose: 5 mg Documented by: Pantoprazole Sodium (Pantoprazole Sodium 40 Mg Tablet) 40 mg PO BID [facility] Last Admin: 01/01/20 08:59 Dose: 40 mg Documented by: Phenol/Menthol (Phenol/Sodium Phenolate 180ml) 5 spray MM Q2H PRN PRN PRN Reason: SORE THROAT Prochlorperazine Edisylate (Prochlorperazine 10 Mg/2 Ml Vial) 5 mg IV Q4H PRN PRN PRN Reason: Breakthrough Nausea/Vomiting Psyllium Hydrophilic Mucilloid (Psyllium 1 Packet) 1 packet PO DAILY [facility] Last Admin: 01/01/20 08:54 Dose: Not Given Documented by: Senna/Docusate Sodium (Senna/Docusate Sodium 1 Tablet) 2 tablet PO BID [facility] Last Admin: 01/01/20 08:59 Dose: 2 tablet Documented by: Sodium Chloride (0.9% Saline Lock 10 Ml Syringe) 10 - 40 ml IV UD PRN PRN Reason: Port-a-Cath (VAD) Flush Last Admin: 12/31/19 18:49 Dose: 10 ml Documented by: Sodium Chloride (0.9 % Nacl (Sterile) Posiflush 10 Ml) 10 - 40 ml IV UD PRN PRN Reason: Port access or dressing change Tbo-Filgrastim (Tbo-Filgrastim 300 Mcg/0.5 Ml Ml) 300 mcg SC DAILY [facility] Last Admin: 01/01/20 09:20 Dose: 300 mcg Documented by: Trazodone HCl (Trazodone 50 Mg Tablet) 50 mg PO QHS [facility] Last Admin: 12/31/19 21:13 Dose: 50 mg Documented by: Zolpidem Tartrate (Zolpidem Tartrate 5 Mg Tablet) 5 mg PO QHS PRN PRN PRN Reason: INSOMNIA Last Admin: 01/01/20 00:30 Dose: 5 mg Documented by: Medical Necessity - Tobacco Use Smoking Status: Light Smoker (<10/day) Route of nutrition/ use of supplements: [] Nutritional Intake: [] IV Site: [] Bhatti Catheter: [] - Assessment/Plan Antibiotics: [] Assessment/Plan: [] Active and Suspected Problems (Last Updated 04/10/18 @ 11:34 by Raine Huber) Elevated lactic acid level (Acute) Necrotizing pneumonia (Acute) MRSA pcr neg. Cont unasyn. Plan on po augmentin x3 weeks at discharge with repeat CT chest prior to stopping abx. Improving overall. CBC worse today. Will follow, d/w Dr. Sewell
[2020-01-01] MEDS: Potassium Chloride 10mEq/100mL 10 MEQ/100 ML IV.SOLN. 100 MEQ IV BOLUS ×4 (11:31→15:27)
[2020-01-01] MEDS: 0.9% Saline Lock 10 ML Syringe IV ×4 (13:31→21:36)
[2020-01-01 13:48] VITALS: BP 116/70; PULSE 90; RESP 16; TEMP 36.6; O2SAT 93
--- NOTE | 2020-01-01 14:18 | PN_ITS ---
Patient Problems: Active and Suspected Problems (Last Updated 04/10/18 @ 11:34 by Raine Huber) Elevated lactic acid level (Acute) Necrotizing pneumonia (Acute) Reason for Visit: Necrotizing anemia. Patient also has severe pancytopenia Objective: No fever or chills. Blood pressure and heart rate is controlled. Patient has severe pancytopenia, WBC 1000, ANC 0.6 thousand. Severe anemia and thrombocytopenia. Physical exam General: Alert, Oriented x3, Cooperative HEENT: Atraumatic, PERRLA, EOMI, Normocephalic Oral: No Gingival or Mucosal Lesions/ Ulcerations Neck: Supple, No JVD, Negative Carotid Bruits Lungs: Air entry diminished in bilateral lung bases. No crepitation/rhonchi Cardiovascular: Regular rate, Regular Rhythm, Normal S1, Normal S2, No murmurs Abdomen: Bowel Sounds Present, Soft, Non Tender, Non-Distended : No renal angle tenderness. No suprapubic tenderness. Extremities: No edema, Capillary Refill Less than 3 Seconds. Patient has MediPort on the left arm. No surrounding cellulitis or tenderness. Skin: No rashes, No breakdown Musculoskeletal: No Tenderness to Palpation of Joints or Extremities. Neurological: Cranial nerves II-XII grossly intact, Deep Tendon Reflexes 2+/4 and Symmetrical, Neuro grossly intact Psych/Mental Status: Normal Affect, Appropriate. Vitals/I&O's: Vital Signs Temp Pulse Resp BP Pulse Ox 97.9 F 90 16 116/70 93 01/01/20 13:48 01/01/20 13:48 01/01/20 13:48 01/01/20 13:48 01/01/20 13:48 Oxygen Delivery Method Room Air Weight: 174 lb 9.698 oz Body Mass Index (BMI) 21.4 Intake and Output for Last 24 Hours 12/30/19 12/31/19 01/01/20 23:59 23:59 23:59 Intake Total 2445 / 2565 2141 / 2141 1472 / 1472 Output Total 2525 / 2825 1722 / 1722 Balance -80 / -260 419 / 419 1472 / 1472 Microbiology Past 72 Hours 12/29/19 06:40 Blood Culture (Wb) - Arm Left Blood Culture - Preliminary No growth in 48 hours. 12/29/19 06:44 Blood Culture (Wb) - Left Hand Blood Culture - Preliminary No growth in 48 hours. 12/29/19 08:50 Urine, Clean Catch Urine Culture - Final Culture exhibits no growth. 12/29/19 07:31 Mucosa - Nose Respiratory Panel (PCR) - Final 12/29/19 14:00 Urine, Clean Catch Legionella Antigen - Final 12/29/19 14:00 Urine, Clean Catch Streptococcus pneumoniae Antigen (M - Final Laboratory Results 01/01/20 09:30: WBC 1.0 L*, RBC 2.26 L, Hgb 7.3 L, Hct 22.4 L, MCV 99.1 H, MCH 32.3 H, MCHC 32.6, RDW Std Deviation 75.6 H, RDW Coeff of Radha 21.0 H, Plt Count 42 L*, MPV 12.4 H, Immature Gran % (Auto) 1.000 H, Neut % (Auto) 61.1, Lymph % (Auto) 23.3, Payne % (Auto) 13.6 H, Eos % (Auto) 1.0, Baso % (Auto) 0.0, Absolute Neuts (auto) 0.6 L, Absolute Lymphs (auto) 0.24 L, Nucleated RBC % 0, Differential Comment SCANNED, Diff Path Review May foll, Platelet Estimate MOD DEC, RBC Morphology N CHROM, Anisocytosis 2+, Macrocytosis 1+ 01/01/20 09:30: Sodium 140, Potassium 3.2 L, Chloride 106, Carbon Dioxide 29.0, Anion Gap 5, BUN 10, Creatinine 0.87, Estim Creat Clear Calc 108.74, Est GFR (MDRD) Af Amer 118, Est GFR (MDRD) Non-Af 97, BUN/Creatinine Ratio 11.5, Glucose 130 H, Calcium 8.3 L 01/01/20 09:30: Phosphorus 2.8, Magnesium 1.2 L Current Medications Acetaminophen (Acetaminophen 325 Mg Tablet) 650 mg PO Q6H PRN PRN PRN Reason: Pain Score 1-10/Temp > 100.7 F Al Hydroxide/Mg Hydroxide (Mag Hydrox/Al Hydrox/Simeth 30 Ml Udc) 30 ml PO Q6H PRN PRN PRN Reason: Gastric Burning Albuterol/Ipratropium (Ipratropium/Albuterol Sulfate 3 Ml Ampul.Neb) 3 ml INHALATION Q4H.RT PRN PRN Reason: sob Atorvastatin Calcium (Atorvastatin Calcium 80 Mg Tablet) 80 mg PO DAILY@2200 [facility] Last Admin: 12/31/19 21:14 Dose: Not Given Documented by: Bisacodyl (Bisacodyl 5 Mg Tablet) 5 mg PO DAILY PRN PRN PRN Reason: Constipation Escitalopram Oxalate (Escitalopram Oxalate 10 Mg Tablet) 10 mg PO DAILY [facility] Last Admin: 01/01/20 08:59 Dose: 10 mg Documented by: Folic Acid (Folic Acid 1 Mg Tablet) 1 mg PO DAILYCM [facility] Last Admin: 01/01/20 09:00 Dose: 1 mg Documented by: Gabapentin (Gabapentin 400 Mg Capsule) 400 mg PO TIDCM [facility] Last Admin: 01/01/20 11:36 Dose: 400 mg Documented by: Guaifenesin (Guaifenesin 1,200 Mg Tablet) 1,200 mg PO BID [facility] Last Admin: 01/01/20 08:54 Dose: Not Given Documented by: Hydromorphone HCl (Hydromorphone 1 Mg/Ml Syringe) 1 mg IV Q4H PRN PRN PRN Reason: Pain Score 6-10 Last Admin: 01/01/20 13:31 Dose: 1 mg Documented by: Sodium Chloride () 250 mls @ 15 mls/hr IV .[id number] PRN PRN Reason: Saline Flush Sodium Chloride () 250 mls @ 15 mls/hr IV .[id number] PRN PRN Reason: Additional IVPB Infusion Ampicillin Sodium/Sulbactam (Sodium 3 gm/ Sodium Chloride) 112 mls @ 150 mls/hr IV Q8 [facility] Last Infusion: 01/01/20 07:55 Dose: Infused Documented by: Potassium Chloride () 10 meq in 100 mls @ 100 mls/hr IV BOLUS Q1H [facility] Stop: 01/01/20 14:44 Last Admin: 01/01/20 13:33 Dose: 100 mls/hr Documented by: Lorazepam (Lorazepam 1 Mg Tablet) 1 mg PO Q6H PRN PRN PRN Reason: ANXIETY Last Admin: 01/01/20 13:38 Dose: 1 mg Documented by: Metoprolol Succinate (Metoprolol(Xl)Succ 25 Mg Tablet) 25 mg PO DAILY [facility] Last Admin: 01/01/20 09:07 Dose: Not Given Documented by: Morphine Sulfate (Morphine Sr 15 Mg Tablet) 15 mg PO TID [facility] Last Admin: 01/01/20 06:15 Dose: 15 mg Documented by: Nitroglycerin (Nitroglycerin (Inpatient Use) 0.4 Mg Tab.Subl) 0.4 mg SUBLINGUAL Q5M PRN PRN Reason: CARDIAC/CHEST PAIN Ondansetron HCl (Ondansetron 4 Mg/2 Ml Vial) 4 mg IV Q8H PRN PRN PRN Reason: NAUSEA/VOMITING Oxycodone HCl (Oxycodone 5 Mg Tablet) 5 mg PO Q4H PRN PRN PRN Reason: Pain Score 4-5 Last Admin: 01/01/20 11:36 Dose: 5 mg Documented by: Pantoprazole Sodium (Pantoprazole Sodium 40 Mg Tablet) 40 mg PO BID [facility] Last Admin: 01/01/20 08:59 Dose: 40 mg Documented by: Phenol/Menthol (Phenol/Sodium Phenolate 180ml) 5 spray MM Q2H PRN PRN PRN Reason: SORE THROAT Prochlorperazine Edisylate (Prochlorperazine 10 Mg/2 Ml Vial) 5 mg IV Q4H PRN PRN PRN Reason: Breakthrough Nausea/Vomiting Psyllium Hydrophilic Mucilloid (Psyllium 1 Packet) 1 packet PO DAILY [facility] Last Admin: 01/01/20 08:54 Dose: Not Given Documented by: Senna/Docusate Sodium (Senna/Docusate Sodium 1 Tablet) 2 tablet PO BID [facility] Last Admin: 01/01/20 08:59 Dose: 2 tablet Documented by: Sodium Chloride (0.9% Saline Lock 10 Ml Syringe) 10 - 40 ml IV UD PRN PRN Reason: Port-a-Cath (VAD) Flush Last Admin: 01/01/20 13:31 Dose: 20 ml Documented by: Sodium Chloride (0.9 % Nacl (Sterile) Posiflush 10 Ml) 10 - 40 ml IV UD PRN PRN Reason: Port access or dressing change Tbo-Filgrastim (Tbo-Filgrastim 300 Mcg/0.5 Ml Ml) 300 mcg SC DAILY [facility] Last Admin: 01/01/20 09:20 Dose: 300 mcg Documented by: Trazodone HCl (Trazodone 50 Mg Tablet) 50 mg PO QHS [facility] Last Admin: 12/31/19 21:13 Dose: 50 mg Documented by: Zolpidem Tartrate (Zolpidem Tartrate 5 Mg Tablet) 5 mg PO QHS PRN PRN PRN Reason: INSOMNIA Last Admin: 01/01/20 00:30 Dose: 5 mg Documented by: STROKE Vital Signs/Narrative: Vital Signs Temp Pulse Resp BP Pulse Ox 01/01/20 13:48 97.9 F 90 16 116/70 93 Medical Necessity - Tobacco Use Smoking Status: Light Smoker (<10/day) Assessment/Plan All Active Problems (Last Updated 04/10/18 @ 11:34 by Raine Huber) Elevated lactic acid level (Acute) Necrotizing pneumonia (Acute) Acute pulmonary embolism (Resolved 04/08/18) Chest pain (Resolved) Intermittent palpitations (Resolved) STEMI (ST elevation myocardial infarction) (Resolved) The patient is a 54 year old M with history of right lung cancer on chemotherapy, previous hospital admission between 11/15?11/18/2019 severe sepsis with no clear source of infection came to ED with near syncope and severe right- sided chest pain and CT chest finding suggestive of necrotizing pneumonia 1. Severe sepsis secondary to right apical necrotizing pneumonia with history of right lung cancer: Patient is being admitted in ICU. IV fluid resuscitation. Monitor intake and output. Repeat lactic acid. Pneumonia work-up including blood cultures x2, MRSA nasal screen, urinary antigens and sputum culture ordered. On broad-spectrum IV antibiotics vancomycin and Zosyn. CT chest and individually reviewed and discussed with the hogshead salvage. It is significant for new necrotizing pneumonia 5.5 x 5.3 cm in right lung apex abating with paraseptal cyst of the right lung apex. Desk Attendant consult requested. 12/29: Patient to continue broad-spectrum antibiotic vancomycin and Zosyn. Urinary antigens are negative. Respiratory panel negative. Pulmonary urine culture did not show growth. MRSA nasal screen PCR negative. Patient is hemodynamically stable to be transferred to PCU. Discussed with the regulatory affairs manager. 12/30: ID consult requested for duration of antibiotic. Hypokalemia, potassium replacement. Hypomagnesemia corrected, repeat magnesium 1.8. 12/31: ID changed antibiotic to Unasyn. At discharge, Augmentin p.o. for 3 we [address] and repeat CT chest prior to stopping antibiotic. Discussed with ID. 2. Right lung cancer complicated with right paratracheal mediastinal lymphadenopathy with cystic necrosis and right hilar lymphadenopathy with chronic right-sided pleuritic chest pain: Being managed by a [facility] oncologist Dr. Can. Right fourth chemotherapy on 12/24/2019. Exact histology, biology and staging of cancer not known. Lung biopsy not available. Exact chemotherapy regimen also not known. Patient is on heavy dose of morphine at home. Morphine sustained-release 15 mg 3 times daily along with morphine IR 15 p.o. every 4 hourly as needed for severe pain. 12/29: Patient was counseled against dependence of benzodiazepine or morphine. He states his oncologist gives him morphine. When he takes 14 tablets every day including benzodiazepine. 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 H&H 7.7/23.6 thousand. Platelet count 56,000. Patient does not have any external bleeding. Pancytopenia secondary to lung cancer on chemotherapy. 12/31 severe pancytopenia, WBC count 1000, ANC 0.6 thousand, hemoglobin 7.7/22 and platelet count 42,000. Mild hypokalemia 3.2 thousand, hypomagnesemia magnesium 1.2 thousand. Electrolytes are being replaced. Phosphorus 2.8. Stool for occult blood ordered. Aspirin and Eliquis discontinued. 3. Coronary artery disease status post stent, paroxysmal A. fib and non-STEMI history: Cardiac medications. 4. 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 Other comorbidities include hypertension, chronic cigarette/nicotine use under, dyslipidemia, chronic alcohol use disorder: Patient still smokes 5 cigarettes/day. Nicotine use. Last alcoholic drink about 2 and half weeks ago. Nicotine patch. Advised quitting cigarette use and alcohol use. 6. VTE prophylaxis bilateral SCDs: Advanced directive: Full code Total time of the visit including total time spent in counseling or coordination of care, (more than 50% of the total time, spent in obtaining medical information from nurses and other ancillary care providers,explaining to the patient about labs, imaging, diagnosis and management), discussion with hogshead salvage, review of labs and imaging is 30 minutes. Microbiology Past 72 Hours 12/29/19 06:40 Blood Culture (Wb) - Arm Left Blood Culture - Preliminary No growth in 48 hours. 12/29/19 06:44 Blood Culture (Wb) - Left Hand Blood Culture - Preliminary No growth in 48 hours. 12/29/19 08:50 Urine, Clean Catch Urine Culture - Final Culture exhibits no growth. 12/29/19 07:31 Mucosa - Nose Respiratory Panel (PCR) - Final 12/29/19 14:00 Urine, Clean Catch Legionella Antigen - Final 12/29/19 14:00 Urine, Clean Catch Streptococcus pneumoniae Antigen (M - Final Laboratory Results 01/01/20 09:30: WBC 1.0 L*, RBC 2.26 L, Hgb 7.3 L, Hct 22.4 L, MCV 99.1 H, MCH 32.3 H, MCHC 32.6, RDW Std Deviation 75.6 H, RDW Coeff of Radha 21.0 H, Plt Count 42 L*, MPV 12.4 H, Immature Gran % (Auto) 1.000 H, Neut % (Auto) 61.1, Lymph % (Auto) 23.3, Payne % (Auto) 13.6 H, Eos % (Auto) 1.0, Baso % (Auto) 0.0, Absolute Neuts (auto) 0.6 L, Absolute Lymphs (auto) 0.24 L, Nucleated RBC % 0, Differential Comment SCANNED, Diff Path Review May foll, Platelet Estimate MOD DEC, RBC Morphology N CHROM, Anisocytosis 2+, Macrocytosis 1+ 01/01/20 09:30: Sodium 140, Potassium 3.2 L, Chloride 106, Carbon Dioxide 29.0, Anion Gap 5, BUN 10, Creatinine 0.87, Estim Creat Clear Calc 108.74, Est GFR (MDRD) Af Amer 118, Est GFR (MDRD) Non-Af 97, BUN/Creatinine Ratio 11.5, Glucose 130 H, Calcium 8.3 L 01/01/20 09:30: Phosphorus 2.8, Magnesium 1.2 L Clinical Impression(s) from Imaging Studies Chest X-Ray 12/29/19 06:00 IMPRESSION: Stable chest. Stable right midlung opacity consistent with prior detected small pleural effusion in the fissure. Chest CTA 12/29/19 07:03 IMPRESSION: 1. New necrotizing pneumonia with traction bronchiectasis in the right lung apex measuring at least 5.5 x 5.3 cm and abuts the paraseptal cysts of the right lung apex. 2. Increasing groundglass opacities in the right upper lobe. 3. Right paratracheal mediastinal lymphadenopathy with cystic necrosis measures at least 4.8 x 4 x 5.5 cm and the right hilar lymphadenopathy measures at least 3.4 x 3.1 cm. Allowing for interobserver differences, these are unchanged. 4. No CTA evidence of pulmonary thromboemboli or thoracic aortic dissection. 5. Mild dilatation of the ascending aorta with a diameter of 3.9 cm versus 2.3 cm for the descending thoracic aorta. This is unchanged. 6. Decreased right pleural fluid and fluid along the right major fissure. 7. No other additional findings or changes since 12/18/2019. Inpatient E&M: [id number] Subs Hosp L2
[2020-01-01 17:02] VITALS: BP 107/57; PULSE 81; RESP 15; TEMP 36.9; O2SAT 94
[2020-01-01 19:58] VITALS: BP 103/61; PULSE 88; RESP 18; TEMP 36.7; O2SAT 93
[2020-01-01] MEDS: Atorvastatin Calcium 80 MG Tablet PO (21:31)
[2020-01-01] MEDS: traZODone 50 MG Tablet PO (21:31)
[2020-01-02] MEDS: HYDROmorphone 1 MG/ML Syringe IV ×6 (01:50→22:42)
[2020-01-02] MEDS: LORazepam 1 MG Tablet PO ×3 (01:50→20:35)
[2020-01-02] MEDS: 0.9% Saline Lock 10 ML Syringe IV ×4 (01:52→22:42)
[2020-01-02 02:01] VITALS: BP 100/65; PULSE 90; RESP 17; TEMP 36.8; O2SAT 95
[2020-01-02] MEDS: oxyCODONE 5 MG Tablet PO ×5 (03:41→20:37)
[2020-01-02] MEDS: morphine SR 15 MG Tablet PO ×3 (05:52→21:33)
[2020-01-02 06:29] LABS: Absolute Lymphocyte Count 0.33 X10^3/uL (0.83-4.51); Absolute Neutrophil Count 0.6 X10^3/uL (2.0-7.7); Eosinophil# 0.01 X10^3/uL; Eosinophils% 0.8 % (0-5); Hematocrit 22.5 % (40-54); Hemoglobin 7.3 g/dL (13.0-16.5); Lymphocyte # 0.33 X10^3/ul (4.0); Mean Corp Hgb Conc 32.4 g/dL (32-36); Mean Corpuscular Hgb 32.6 pg (27.0-32.0); Mean Corpuscular Volume 100.4 fL (80-94); Mean Platelet Vol. 10.7 fl (6.2-12.0); Monocyte# 0.26 X10^3/uL; NRBC Flagged by Analyzer 0 % (0-5); Neutrophil # 0.56 X10^3/uL (2.7-7.7); Neutrophil % 47.5 % (47-70); POSITIVE COUNT YES; POSITIVE DIFFERENTIAL YES; POSITIVE MORPHOLOGY YES; RBC Distribution Width CV 20.9 % (11.6-14.6); Red Blood Count 2.24 M/mm3 (4.6-6.2)
[2020-01-02 06:33] LABS: Differential Indicated SCAN CRITERIA MET
[2020-01-02 06:35] LABS: White Blood Count 1.2 K/mm3 (4.4-11.0)
[2020-01-02 06:36] LABS: Platelet Count 40 K/mm3 (150-450)
[2020-01-02 06:51] LABS: Anion Gap 2 (5-15); BUN 10 mg/dL (7-18); BUN/Creat Ratio 14.4 RATIO (10-20); Calcium,Total 8.4 mg/dL (8.5-10.1); Chloride 105 mmol/L (98-107); EST Glomerular Filtration Rate 126 mL/min (>60); Est Glom Filt Rate - Afr Amer 152 mL/min (>60); Estimated Creatinine Clearance 135.14 ml/min; Glucose 92 mg/dL (74-106); Potassium 3.6 mmol/L (3.5-5.1); Sodium Level 138 mmol/L (136-145)
[2020-01-02 07:07] LABS: Differential Comment SCANNED; Platelet Estimate MKD DEC (ADEQ)
[2020-01-02 07:08] LABS: Hypochromasia 1+; Microcytosis 1+
[2020-01-02 08:01] VITALS: BP 91/56; PULSE 94; RESP 16; TEMP 36.6; O2SAT 93
[2020-01-02] MEDS: Folic Acid 1 MG Tablet PO (08:11)
[2020-01-02] MEDS: Gabapentin 400 MG Capsule PO ×3 (08:11→16:25)
[2020-01-02 10:00] VITALS: BP 110/64; PULSE 75; RESP 16; TEMP 37; O2SAT 94
[2020-01-02] MEDS: guaiFENesin 1,200 MG Tablet 1200 MG PO (10:14)
[2020-01-02] MEDS: Pantoprazole Sodium 40 MG Tablet PO ×2 (10:14→21:28)
[2020-01-02] MEDS: Escitalopram Oxalate 10 MG Tablet PO (10:15)
[2020-01-02] MEDS: TBO-FILGRASTIM 480 MCG/0.8 ML ML SC (10:23)
[2020-01-02] MEDS: Senna/Docusate Sodium 1 Tablet 2 TABLET PO ×2 (11:35→21:28)
[2020-01-02 12:02] LABS: Pathologist Review Reviewed
--- NOTE | 2020-01-02 12:02 | PN_ITS ---
Patient Problems: Active and Suspected Problems (Last Updated 04/10/18 @ 11:34 by Raine Huber) Elevated lactic acid level (Acute) Necrotizing pneumonia (Acute) Reason for Visit: Patient not having any fever or chills. Has chronic right-sided chest pain. Breathing status is better. Patient still has pancytopenia. Physical exam General: Alert, Oriented x3, Cooperative HEENT: Atraumatic, PERRLA, EOMI, Normocephalic Oral: No Gingival or Mucosal Lesions/ Ulcerations Neck: Supple, No JVD, Negative Carotid Bruits Lungs: Air entry diminished in bilateral lung bases. No crepitation/rhonchi Cardiovascular: Regular rate, Regular Rhythm, Normal S1, Normal S2, No murmurs Abdomen: Bowel Sounds Present, Soft, Non Tender, Non-Distended : No renal angle tenderness. No suprapubic tenderness. Extremities: No edema, Capillary Refill Less than 3 Seconds. Patient has MediPort on the left arm. No surrounding cellulitis or tenderness. Skin: No rashes, No breakdown Musculoskeletal: No Tenderness to Palpation of Joints or Extremities. Neurological: Cranial nerves II-XII grossly intact, Deep Tendon Reflexes 2+/4 and Symmetrical, Neuro grossly intact Psych/Mental Status: Normal Affect, Appropriate. Vitals/I&O's: Vital Signs Temp Pulse Resp BP Pulse Ox 98.6 F 75 16 110/64 94 01/02/20 10:00 01/02/20 10:00 01/02/20 10:00 01/02/20 10:00 01/02/20 10:00 Oxygen Delivery Method Room Air Weight: 174 lb 9.698 oz Body Mass Index (BMI) 21.4 Intake and Output for Last 24 Hours 12/31/19 01/01/20 01/02/20 23:59 23:59 23:59 Intake Total 2141 / 2141 2350 / 2350 412 / 412 Output Total 1722 / 1722 Balance 419 / 419 2350 / 2350 412 / 412 Microbiology Past 72 Hours 12/29/19 06:40 Blood Culture (Wb) - Arm Left Blood Culture - Preliminary No growth in 48 hours. 12/29/19 06:44 Blood Culture (Wb) - Left Hand Blood Culture - Preliminary No growth in 48 hours. 12/29/19 08:50 Urine, Clean Catch Urine Culture - Final Culture exhibits no growth. Laboratory Results 01/02/20 06:20: WBC 1.2 L*, RBC 2.24 L, Hgb 7.3 L, Hct 22.5 L, MCV 100.4 H, MCH 32.6 H, MCHC 32.4, RDW Std Deviation 77.0 H, RDW Coeff of Radha 20.9 H, Plt Count 40 L*, MPV 10.7, Immature Gran % (Auto) 1.700 H, Neut % (Auto) 47.5, Lymph % (Auto) 28.0, [place] % (Auto) 22.0 H, Eos % (Auto) 0.8, Baso % (Auto) 0.0, Absolute Neuts (auto) 0.6 L, Absolute Lymphs (auto) 0.33 L, Nucleated RBC % 0, Differential Comment SCANNED, Diff Path Review May foll, Platelet Estimate MKD DEC, Hypochromasia 1+, Microcytosis 1+ 01/02/20 06:20: Sodium 138, Potassium 3.6, Chloride 105, Carbon Dioxide 31.0, Anion Gap 2 L, BUN 10, Creatinine 0.70, Estim Creat Clear Calc 135.14, Est GFR (MDRD) Af Amer 152, Est GFR (MDRD) Non-Af 126, BUN/Creatinine Ratio 14.4, Glucose 92, Calcium 8.4 L Current Medications Acetaminophen (Acetaminophen 325 Mg Tablet) 650 mg PO Q6H PRN PRN PRN Reason: Pain Score 1-10/Temp > 100.7 F Al Hydroxide/Mg Hydroxide (Mag Hydrox/Al Hydrox/Simeth 30 Ml Udc) 30 ml PO Q6H PRN PRN PRN Reason: Gastric Burning Albuterol/Ipratropium (Ipratropium/Albuterol Sulfate 3 Ml Ampul.Neb) 3 ml INHALATION Q4H.RT PRN PRN Reason: sob Atorvastatin Calcium (Atorvastatin Calcium 80 Mg Tablet) 80 mg PO DAILY@2200 [facility] Last Admin: 01/01/20 21:31 Dose: 80 mg Documented by: Bisacodyl (Bisacodyl 5 Mg Tablet) 5 mg PO DAILY PRN PRN PRN Reason: Constipation Escitalopram Oxalate (Escitalopram Oxalate 10 Mg Tablet) 10 mg PO DAILY [facility] Last Admin: 01/02/20 10:15 Dose: 10 mg Documented by: Folic Acid (Folic Acid 1 Mg Tablet) 1 mg PO DAILYCM [facility] Last Admin: 01/02/20 08:11 Dose: 1 mg Documented by: Gabapentin (Gabapentin 400 Mg Capsule) 400 mg PO TIDCM [facility] Last Admin: 01/02/20 08:11 Dose: 400 mg Documented by: Guaifenesin (Guaifenesin 1,200 Mg Tablet) 1,200 mg PO BID [facility] Last Admin: 01/02/20 10:14 Dose: 1,200 mg Documented by: Hydromorphone HCl (Hydromorphone 1 Mg/Ml Syringe) 1 mg IV Q4H PRN PRN PRN Reason: Pain Score 6-10 Last Admin: 01/02/20 10:12 Dose: 1 mg Documented by: Sodium Chloride () 250 mls @ 15 mls/hr IV .[id number] PRN PRN Reason: Saline Flush Last Admin: 01/02/20 11:40 Dose: 15 mls/hr Documented by: Sodium Chloride () 250 mls @ 15 mls/hr IV .[id number] PRN PRN Reason: Additional IVPB Infusion Ampicillin Sodium/Sulbactam (Sodium 3 gm/ Sodium Chloride) 112 mls @ 150 mls/hr IV Q8 [facility] Last Infusion: 01/02/20 06:37 Dose: Infused Documented by: Lorazepam (Lorazepam 1 Mg Tablet) 1 mg PO Q6H PRN PRN PRN Reason: ANXIETY Last Admin: 01/02/20 10:23 Dose: 1 mg Documented by: Metoprolol Succinate (Metoprolol(Xl)Succ 25 Mg Tablet) 25 mg PO DAILY [facility] Last Admin: 01/02/20 10:53 Dose: Not Given Documented by: Morphine Sulfate (Morphine Sr 15 Mg Tablet) 15 mg PO TID [facility] Last Admin: 01/02/20 05:52 Dose: 15 mg Documented by: Nitroglycerin (Nitroglycerin (Inpatient Use) 0.4 Mg Tab.Subl) 0.4 mg SUBLINGUAL Q5M PRN PRN Reason: CARDIAC/CHEST PAIN Ondansetron HCl (Ondansetron 4 Mg/2 Ml Vial) 4 mg IV Q8H PRN PRN PRN Reason: NAUSEA/VOMITING Oxycodone HCl (Oxycodone 5 Mg Tablet) 5 mg PO Q4H PRN PRN PRN Reason: Pain Score 4-5 Last Admin: 01/02/20 08:17 Dose: 5 mg Documented by: Pantoprazole Sodium (Pantoprazole Sodium 40 Mg Tablet) 40 mg PO BID [facility] Last Admin: 01/02/20 10:14 Dose: 40 mg Documented by: Phenol/Menthol (Phenol/Sodium Phenolate 180ml) 5 spray MM Q2H PRN PRN PRN Reason: SORE THROAT Prochlorperazine Edisylate (Prochlorperazine 10 Mg/2 Ml Vial) 5 mg IV Q4H PRN PRN PRN Reason: Breakthrough Nausea/Vomiting Psyllium Hydrophilic Mucilloid (Psyllium 1 Packet) 1 packet PO DAILY [facility] Last Admin: 01/02/20 10:13 Dose: Not Given Documented by: Senna/Docusate Sodium (Senna/Docusate Sodium 1 Tablet) 2 tablet PO BID [facility] Last Admin: 01/02/20 11:35 Dose: 2 tablet Documented by: Sodium Chloride (0.9% Saline Lock 10 Ml Syringe) 10 - 40 ml IV UD PRN PRN Reason: Port-a-Cath (VAD) Flush Last Admin: 01/02/20 05:53 Dose: 10 ml Documented by: Sodium Chloride (0.9 % Nacl (Sterile) Posiflush 10 Ml) 10 - 40 ml IV UD PRN PRN Reason: Port access or dressing change Tbo-Filgrastim (Tbo-Filgrastim 480 Mcg/0.8 Ml Ml) 480 mcg SC DAILY [facility] Last Admin: 01/02/20 10:23 Dose: 480 mcg Documented by: Trazodone HCl (Trazodone 50 Mg Tablet) 50 mg PO QHS [facility] Last Admin: 01/01/20 21:31 Dose: 50 mg Documented by: Zolpidem Tartrate (Zolpidem Tartrate 5 Mg Tablet) 5 mg PO QHS PRN PRN PRN Reason: INSOMNIA Last Admin: 01/01/20 23:34 Dose: 5 mg Documented by: STROKE Vital Signs/Narrative: Vital Signs Temp Pulse Resp BP Pulse Ox 01/02/20 10:00 98.6 F 75 16 110/64 94 Medical Necessity - Tobacco Use Smoking Status: Light Smoker (<10/day) Assessment/Plan All Active Problems (Last Updated 04/10/18 @ 11:34 by Raine Huber) Elevated lactic acid level (Acute) Necrotizing pneumonia (Acute) Acute pulmonary embolism (Resolved 04/08/18) Chest pain (Resolved) Intermittent palpitations (Resolved) STEMI (ST elevation myocardial infarction) (Resolved) The patient is a 54 year old M with history of right lung cancer on chemotherapy, previous hospital admission between 11/15?11/18/2019 severe sepsis with no clear source of infection came to ED with near syncope and severe right- sided chest pain and CT chest finding suggestive of necrotizing pneumonia 1. Severe sepsis secondary to right apical necrotizing pneumonia with history of right lung cancer: Patient is being admitted in ICU. IV fluid resuscitation. Monitor intake and output. Repeat lactic acid. Pneumonia work-up including blood cultures x2, MRSA nasal screen, urinary antigens and sputum culture ordered. On broad-spectrum IV antibiotics vancomycin and Zosyn. CT chest and individually reviewed and discussed with the venetian blind tape cutter. It is significant for new necrotizing pneumonia 5.5 x 5.3 cm in right lung apex abating with paraseptal cyst of the right lung apex. Manager Bilingual consult requested. 12/29: Patient to continue broad-spectrum antibiotic vancomycin and Zosyn. Urinary antigens are negative. Respiratory panel negative. Pulmonary urine culture did not show growth. MRSA nasal screen PCR negative. Patient is hemodynamically stable to be transferred to PCU. Discussed with the filament shaper. 12/30: ID consult requested for duration of antibiotic. Hypokalemia, potassium replacement. Hypomagnesemia corrected, repeat magnesium 1.8. 12/31: ID changed antibiotic to Unasyn. At discharge, Augmentin p.o. for [address] chest prior to stopping antibiotic. Discussed with ID. 01/01: No fever or chills. Continue antibiotic. 2. Right lung cancer complicated with right paratracheal mediastinal l ymphadenopathy with cystic necrosis and right hilar lymphadenopathy with chronic right-sided pleuritic chest pain and pancytopenia: Being managed by a [facility] oncologist Dr. Can. Right fourth chemotherapy on 12/24/2019. Exact histology, biology and staging of cancer not known. Lung biopsy not available. Exact chemotherapy regimen also not known. Patient is on heavy dose of morphine at home. Morphine sustained-release 15 mg 3 times daily along with morphine IR 15 p.o. every 4 hourly as needed for severe pain. 12/29: Patient was counseled against dependence of benzodiazepine or morphine. He states his oncologist gives him morphine. When he takes 14 tablets every day including benzodiazepine. 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 H&H 7.7/23.6 thousand. Platelet count 56,000. Patient does not have any external bleeding. Pancytopenia secondary to lung cancer on chemotherapy. 12/31 severe pancytopenia, WBC count 1000, ANC 0.6 thousand, hemoglobin 7.7/22 and platelet count 42,000. Mild hypokalemia 3.2 thousand, hypomagnesemia magnesium 1.2 thousand. Electrolytes are being replaced. Phosphorus 2.8. Stool for occult blood ordered. Aspirin and Eliquis discontinued. 01/01: WBC count is still low 1.2 thousand, H&H 7.3/22.5, platelet 40,000. Monitor CBC. 3. Coronary artery disease status post stent, paroxysmal A. fib and non-STEMI history: Cardiac medications. 4. 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 Other comorbidities include hypertension, chronic cigarette/nicotine use under, dyslipidemia, chronic alcohol use disorder: Patient still smokes 5 cigarettes/day. Nicotine use. Last alcoholic drink about 2 and half weeks ago. Nicotine patch. Advised quitting cigarette use and alcohol use. 6. VTE prophylaxis bilateral SCDs: Advanced directive: Full code Total time of the visit including total time spent in counseling or coordination of care, (more than 50% of the total time, spent in obtaining medical information from nurses and other ancillary care providers,explaining to the patient about labs, imaging, diagnosis and management), discussion with venetian blind tape cutter, review of labs and imaging is 30 minutes. Microbiology Past 72 Hours 12/29/19 06:40 Blood Culture (Wb) - Arm Left Blood Culture - Preliminary No growth in 48 hours. 12/29/19 06:44 Blood Culture (Wb) - Left Hand Blood Culture - Preliminary No growth in 48 hours. 12/29/19 08:50 Urine, Clean Catch Urine Culture - Final Culture exhibits no growth. Laboratory Results 01/01/20 09:30: Diff Path Review Reviewed 01/02/20 06:20: WBC 1.2 L*, RBC 2.24 L, Hgb 7.3 L, Hct 22.5 L, MCV 100.4 H, MCH 32.6 H, MCHC 32.4, RDW Std Deviation 77.0 H, RDW Coeff of Radha 20.9 H, Plt Count 40 L*, MPV 10.7, Immature Gran % (Auto) 1.700 H, Neut % (Auto) 47.5, Lymph % (Auto) 28.0, [place] % (Auto) 22.0 H, Eos % (Auto) 0.8, Baso % (Auto) 0.0, Absolute Neuts (auto) 0.6 L, Absolute Lymphs (auto) 0.33 L, Nucleated RBC % 0, Differential Comment SCANNED, Diff Path Review Reviewed, Platelet Estimate MKD DEC, Hypochromasia 1+, Microcytosis 1+ 01/02/20 06:20: Sodium 138, Potassium 3.6, Chloride 105, Carbon Dioxide 31.0, Anion Gap 2 L, BUN 10, Creatinine 0.70, Estim Creat Clear Calc 135.14, Est GFR (MDRD) Af Amer 152, Est GFR (MDRD) Non-Af 126, BUN/Creatinine Ratio 14.4, Glucose 92, Calcium 8.4 L Clinical Impression(s) from Imaging Studies Chest X-Ray 12/29/19 06:00 IMPRESSION: Stable chest. Stable right midlung opacity consistent with prior detected small pleural effusion in the fissure. Chest CTA 12/29/19 07:03 IMPRESSION: 1. New necrotizing pneumonia with traction bronchiectasis in the right lung apex measuring at least 5.5 x 5.3 cm and abuts the paraseptal cysts of the right lung apex. 2. Increasing groundglass opacities in the right upper lobe. 3. Right paratracheal mediastinal lymphadenopathy with cystic necrosis measures at least 4.8 x 4 x 5.5 cm and the right hilar lymphadenopathy measures at least 3.4 x 3.1 cm. Allowing for interobserver differences, these are unchanged. 4. No CTA evidence of pulmonary thromboemboli or thoracic aortic dissection. 5. Mild dilatation of the ascending aorta with a diameter of 3.9 cm versus 2.3 cm for the descending thoracic aorta. This is unchanged. 6. Decreased right pleural fluid and fluid along the right major fissure. 7. No other additional findings or changes since 12/18/2019. Inpatient E&M: 94093 Subs Hosp L2
[2020-01-02 12:03] LABS: Pathologist Review Reviewed
--- NOTE | 2020-01-02 15:54 | PN.ID_ITS ---
Patient Problems: Active and Suspected Problems (Last Updated 04/10/18 @ 11:34 by Raine Huber) Elevated lactic acid level (Acute) Necrotizing pneumonia (Acute) Subjective: Feeling about the same. No fever, no n/v/d, mild dyspnea and cough, still some R chest pain. - Physical Exam Vitals/I&O's: Vital Signs Temp Pulse Resp BP Pulse Ox 98.6 F 75 16 110/64 94 01/02/20 10:00 01/02/20 10:00 01/02/20 10:00 01/02/20 10:00 01/02/20 10:00 Oxygen Delivery Method Room Air Weight: 79.2 kg Body Mass Index (BMI) 21.4 Intake and Output for Last 24 Hours 12/31/19 01/01/20 01/02/20 23:59 23:59 23:59 Intake Total 2141 / 2141 2350 / 2350 1366.25 / 1366.25 Output Total 1722 / 1722 Balance 419 / 419 2350 / 2350 1366.25 / 1366.25 General: Alert, Cooperative, No apparent distress Lungs: Rhonchi Cardiovascular: Regular rate, Regular Rhythm Abdomen: Soft, Non Tender, Non-Distended Skin: No rashes Microbiology Past 72 Hours 12/29/19 06:40 Blood Culture (Wb) - Arm Left Blood Culture - Preliminary No growth in 48 hours. 12/29/19 06:44 Blood Culture (Wb) - Left Hand Blood Culture - Preliminary No growth in 48 hours. 12/29/19 08:50 Urine, Clean Catch Urine Culture - Final Culture exhibits no growth. Laboratory Results 01/01/20 09:30: Diff Path Review Reviewed 01/02/20 06:20: WBC 1.2 L*, RBC 2.24 L, Hgb 7.3 L, Hct 22.5 L, MCV 100.4 H, MCH 32.6 H, MCHC 32.4, RDW Std Deviation 77.0 H, RDW Coeff of Radha 20.9 H, Plt Count 40 L*, MPV 10.7, Immature Gran % (Auto) 1.700 H, Neut % (Auto) 47.5, Lymph % (Auto) 28.0, [place] % (Auto) 22.0 H, Eos % (Auto) 0.8, Baso % (Auto) 0.0, Absolute Neuts (auto) 0.6 L, Absolute Lymphs (auto) 0.33 L, Nucleated RBC % 0, Differential Comment SCANNED, Diff Path Review Reviewed, Platelet Estimate MKD DEC, Hypochromasia 1+, Microcytosis 1+ 01/02/20 06:20: Sodium 138, Potassium 3.6, Chloride 105, Carbon Dioxide 31.0, Anion Gap 2 L, BUN 10, Creatinine 0.70, Estim Creat Clear Calc 135.14, Est GFR (MDRD) Af Amer 152, Est GFR (MDRD) Non-Af 126, BUN/Creatinine Ratio 14.4, Glucose 92, Calcium 8.4 L Current Medications Acetaminophen (Acetaminophen 325 Mg Tablet) 650 mg PO Q6H PRN PRN PRN Reason: Pain Score 1-10/Temp > 100.7 F Al Hydroxide/Mg Hydroxide (Mag Hydrox/Al Hydrox/Simeth 30 Ml Udc) 30 ml PO Q6H PRN PRN PRN Reason: Gastric Burning Albuterol/Ipratropium (Ipratropium/Albuterol Sulfate 3 Ml Ampul.Neb) 3 ml INHALATION Q4H.RT PRN PRN Reason: sob Atorvastatin Calcium (Atorvastatin Calcium 80 Mg Tablet) 80 mg PO DAILY@2200 [facility] Last Admin: 01/01/20 21:31 Dose: 80 mg Documented by: Bisacodyl (Bisacodyl 5 Mg Tablet) 5 mg PO DAILY PRN PRN PRN Reason: Constipation Escitalopram Oxalate (Escitalopram Oxalate 10 Mg Tablet) 10 mg PO DAILY [facility] Last Admin: 01/02/20 10:15 Dose: 10 mg Documented by: Folic Acid (Folic Acid 1 Mg Tablet) 1 mg PO DAILYCM [facility] Last Admin: 01/02/20 08:11 Dose: 1 mg Documented by: Gabapentin (Gabapentin 400 Mg Capsule) 400 mg PO TIDCM [facility] Last Admin: 01/02/20 12:22 Dose: 400 mg Documented by: Guaifenesin (Guaifenesin 1,200 Mg Tablet) 1,200 mg PO BID [facility] Last Admin: 01/02/20 10:14 Dose: 1,200 mg Documented by: Hydromorphone HCl (Hydromorphone 1 Mg/Ml Syringe) 1 mg IV Q4H PRN PRN PRN Reason: Pain Score 6-10 Last Admin: 01/02/20 14:31 Dose: 1 mg Documented by: Sodium Chloride () 250 mls @ 15 mls/hr IV .[id number] PRN PRN Reason: Saline Flush Last Infusion: 01/02/20 15:06 Dose: 15 mls/hr Documented by: Sodium Chloride () 250 mls @ 15 mls/hr IV .[id number] PRN PRN Reason: Additional IVPB Infusion Ampicillin Sodium/Sulbactam (Sodium 3 gm/ Sodium Chloride) 112 mls @ 150 mls/hr IV Q8 [facility] Last Infusion: 01/02/20 15:48 Dose: Infused Documented by: Lorazepam (Lorazepam 1 Mg Tablet) 1 mg PO Q6H PRN PRN PRN Reason: ANXIETY Last Admin: 01/02/20 10:23 Dose: 1 mg Documented by: Metoprolol Succinate (Metoprolol(Xl)Succ 25 Mg Tablet) 25 mg PO DAILY [facility] Last Admin: 01/02/20 10:53 Dose: Not Given Documented by: Morphine Sulfate (Morphine Sr 15 Mg Tablet) 15 mg PO TID [facility] Last Admin: 01/02/20 14:20 Dose: 15 mg Documented by: Nitroglycerin (Nitroglycerin (Inpatient Use) 0.4 Mg Tab.Subl) 0.4 mg SUBLINGUAL Q5M PRN PRN Reason: CARDIAC/CHEST PAIN Ondansetron HCl (Ondansetron 4 Mg/2 Ml Vial) 4 mg IV Q8H PRN PRN PRN Reason: NAUSEA/VOMITING Oxycodone HCl (Oxycodone 5 Mg Tablet) 5 mg PO Q4H PRN PRN PRN Reason: Pain Score 4-5 Last Admin: 01/02/20 12:20 Dose: 5 mg Documented by: Pantoprazole Sodium (Pantoprazole Sodium 40 Mg Tablet) 40 mg PO BID [facility] Last Admin: 01/02/20 10:14 Dose: 40 mg Documented by: Phenol/Menthol (Phenol/Sodium Phenolate 180ml) 5 spray MM Q2H PRN PRN PRN Reason: SORE THROAT Prochlorperazine Edisylate (Prochlorperazine 10 Mg/2 Ml Vial) 5 mg IV Q4H PRN PRN PRN Reason: Breakthrough Nausea/Vomiting Psyllium Hydrophilic Mucilloid (Psyllium 1 Packet) 1 packet PO DAILY [facility] Last Admin: 01/02/20 10:13 Dose: Not Given Documented by: Senna/Docusate Sodium (Senna/Docusate Sodium 1 Tablet) 2 tablet PO BID [facility] Last Admin: 01/02/20 11:35 Dose: 2 tablet Documented by: Sodium Chloride (0.9% Saline Lock 10 Ml Syringe) 10 - 40 ml IV UD PRN PRN Reason: Port-a-Cath (VAD) Flush Last Admin: 01/02/20 14:24 Dose: 20 ml Documented by: Sodium Chloride (0.9 % Nacl (Sterile) Posiflush 10 Ml) 10 - 40 ml IV UD PRN PRN Reason: Port access or dressing change Tbo-Filgrastim (Tbo-Filgrastim 480 Mcg/0.8 Ml Ml) 480 mcg SC DAILY [facility] Last Admin: 01/02/20 10:23 Dose: 480 mcg Documented by: Trazodone HCl (Trazodone 50 Mg Tablet) 50 mg PO QHS [facility] Last Admin: 01/01/20 21:31 Dose: 50 mg Documented by: Zolpidem Tartrate (Zolpidem Tartrate 5 Mg Tablet) 5 mg PO QHS PRN PRN PRN Reason: INSOMNIA Last Admin: 01/01/20 23:34 Dose: 5 mg Documented by: Medical Necessity - Tobacco Use Smoking Status: Light Smoker (<10/day) Route of nutrition/ use of supplements: [] Nutritional Intake: [] IV Site: [] Bhatti Catheter: [] - Assessment/Plan Antibiotics: [] Assessment/Plan: [] Active and Suspected Problems (Last Updated 04/10/18 @ 11:34 by Raine Hbuer) Elevated lactic acid level (Acute) Necrotizing pneumonia (Acute) MRSA pcr neg. Cont unasyn. Plan on po augmentin x3 weeks at discharge with repeat CT chest prior to stopping abx. Improving overall. CBC relatively stable Will follow, d/w Dr. Sewell
--- NOTE | 2020-01-02 15:56 | NURSING ---
Pt refusing to have bm in hat in order to obtain occult stool sample. Pt stated he wont do it because he doesn't want it splattering all over him. Attempted to educate pt on hat and collection of stool, pt interrupted this nurse and would not accept further education.
[2020-01-02 16:00] VITALS: BP 112/75; PULSE 98; RESP 14; TEMP 37.1; O2SAT 96
[2020-01-02 21:25] VITALS: BP 119/67; PULSE 92; RESP 16; TEMP 36.7; O2SAT 97
[2020-01-02] MEDS: traZODone 50 MG Tablet PO (21:28)
[2020-01-02] MEDS: Zolpidem Tartrate 5 MG Tablet PO (22:45)
[2020-01-03] VITALS (7 sets, daily range): BP systolic 90–127; BP diastolic 51–78; PULSE 72–89; RESP 16–20; TEMP 36.1–37.1; O2SAT 92–98
[2020-01-03] MEDS: oxyCODONE 5 MG Tablet PO ×5 (00:41→17:50)
[2020-01-03] MEDS: HYDROmorphone 1 MG/ML Syringe IV ×5 (02:48→20:24)
[2020-01-03] MEDS: 0.9% Saline Lock 10 ML Syringe IV ×3 (02:48→21:37)
[2020-01-03] MEDS: LORazepam 1 MG Tablet PO ×4 (02:48→22:28)
[2020-01-03 04:39] LABS: Absolute Lymphocyte Count 0.33 X10^3/uL (0.83-4.51); Absolute Neutrophil Count 1.3 X10^3/uL (2.0-7.7); Basophil# 0.01 X10^3/uL; Basophil% 0.5 % (0-1); Eosinophil# 0.01 X10^3/uL; Eosinophils% 0.5 % (0-5); Hematocrit 21.2 % (40-54); Hemoglobin 6.8 g/dL (13.0-16.5); Lymphocyte # 0.33 X10^3/ul (4.0); Lymphocyte % 15.8 % (19-41); Mean Corp Hgb Conc 32.1 g/dL (32-36); Mean Corpuscular Hgb 31.9 pg (27.0-32.0); Mean Corpuscular Volume 99.5 fL (80-94); Mean Platelet Vol. 11.3 fl (6.2-12.0); Monocyte# 0.39 X10^3/uL; Monocyte% 18.7 % (0-10); NRBC Flagged by Analyzer 0 % (0-5); Neutrophil # 1.34 X10^3/uL (2.7-7.7); POSITIVE COUNT YES; POSITIVE DIFFERENTIAL YES; POSITIVE MORPHOLOGY YES; RBC Distribution Width CV 20.6 % (11.6-14.6); Red Blood Count 2.13 M/mm3 (4.6-6.2); White Blood Count 2.1 K/mm3 (4.4-11.0)
[2020-01-03 04:40] LABS: Differential Indicated SCAN CRITERIA MET; Platelet Count 39 K/mm3 (150-450)
[2020-01-03 04:52] LABS: Anion Gap 4 (5-15); BUN 8 mg/dL (7-18); BUN/Creat Ratio 10.6 RATIO (10-20); Calcium,Total 8.3 mg/dL (8.5-10.1); Chloride 105 mmol/L (98-107); Creatinine, Serum 0.75 mg/dL (0.70-1.30); EST Glomerular Filtration Rate 115 mL/min (>60); Est Glom Filt Rate - Afr Amer 139 mL/min (>60); Estimated Creatinine Clearance 126.13 ml/min; Glucose 83 mg/dL (74-106); Potassium 3.5 mmol/L (3.5-5.1); Sodium Level 140 mmol/L (136-145)
[2020-01-03 05:03] LABS: Platelet Estimate MKD DEC (ADEQ)
[2020-01-03] MEDS: morphine SR 15 MG Tablet PO ×3 (05:06→21:36)
[2020-01-03] MEDS: Gabapentin 400 MG Capsule PO ×3 (07:52→17:50)
[2020-01-03] MEDS: Escitalopram Oxalate 10 MG Tablet PO (07:52)
[2020-01-03] MEDS: Folic Acid 1 MG Tablet PO (07:52)
[2020-01-03] MEDS: Senna/Docusate Sodium 1 Tablet 2 TABLET PO ×2 (10:00→21:38)
--- NOTE | 2020-01-03 12:30 | PCM.PN.HOSP ---
Patient Problems: Active and Suspected Problems (Last Updated 04/10/18 @ 11:34 by Raine Huber) Elevated lactic acid level (Acute) Necrotizing pneumonia (Acute) Subjective: Patient seen and examined. He had no complaints today. He had hoped to go home but hemoglobin noted to have dropped to 6.8 today. He denies any dark or bloody stools but does say he coughed up a scant amount of blood. Review of symptoms otherwise negative. He has remained hemodynamically stable otherwise Vitals/I&O's: Vital Signs Temp Pulse Resp BP Pulse Ox 98.8 F 86 16 97/61 94 01/03/20 11:25 01/03/20 11:25 01/03/20 11:25 01/03/20 11:25 01/03/20 11:25 Oxygen Delivery Method Room Air Weight: 174 lb 9.698 oz Body Mass Index (BMI) 21.4 Intake and Output for Last 24 Hours 01/01/20 01/02/20 01/03/20 23:59 23:59 23:59 Intake Total 2350 / 2350 1835.25 / 2315.25 792 / 792 Balance 2350 / 2350 1835.25 / 2315.25 792 / 792 General: Alert, Oriented x3, Cooperative, No apparent distress HEENT: Atraumatic, PERRLA, EOMI, Normocephalic Oral: Dry Mucosa Neck: Supple, No JVD, Negative Carotid Bruits Lungs: Clear to auscultation, Normal air movement, No rhonchi, No wheeze, No rales Cardiovascular: Regular rate, Regular Rhythm, Normal S1, Normal S2, No murmurs Abdomen: Bowel Sounds Present, Soft, Non Tender, Non-Distended, No Hepato-splenomegaly Extremities: No clubbing, No cyanosis, No edema, Capillary Refill Less than 3 Seconds Skin: No rashes, No breakdown Musculoskeletal: No Tenderness to Palpation of Joints or Extremities Lymphatic: No Cervical, Supraclavicular, or Inguinal Adenopathy Neurological: Cranial nerves II-XII grossly intact, Neuro grossly intact, Motor Exam 5/5 strength throughout Psych/Mental Status: Normal Affect, Appropriate, Alert and oriented to time, place, person, mood and affect Microbiology Past 72 Hours 12/29/19 06:40 Blood Culture (Wb) - Arm Left Blood Culture - Final No growth in 5 days. 12/29/19 06:44 Blood Culture (Wb) - Left Hand Blood Culture - Final No growth in 5 days. 12/29/19 08:50 Urine, Clean Catch Urine Culture - Final Culture exhibits no growth. Laboratory Results 01/03/20 04:30: WBC 2.1 L, RBC 2.13 L, Hgb 6.8 L, Hct 21.2 L, MCV 99.5 H, MCH 31.9, MCHC 32.1, RDW Std Deviation 74.0 H, RDW Coeff of Radha 20.6 H, Plt Count 39 L*, MPV 11.3, Immature Gran % (Auto) 0.500, Neut % (Auto) 64.0, Lymph % (Auto) 15.8 L, Graham % (Auto) 18.7 H, Eos % (Auto) 0.5, Baso % (Auto) 0.5, Absolute Neuts (auto) 1.3 L, Absolute Lymphs (auto) 0.33 L, Nucleated RBC % 0, Diff Path Review June, Platelet Estimate MKD 01/03/20 04:30: Sodium 140, Potassium 3.5, Chloride 105, Carbon Dioxide 31.0, Anion Gap 4 L, BUN 8, Creatinine 0.75, Estim Creat Clear Calc 126.13, Est GFR (MDRD) Af Amer 139, Est GFR (MDRD) Non-Af 115, BUN/Creatinine Ratio 10.6, Glucose 83, Calcium 8.3 L 01/03/20 05:10: Blood Type B POSITIVE, Antibody Screen NEGATIVE, Crossmatch See Detail Diagnostic Data Chest X-Ray 12/29/19 06:00 IMPRESSION: Stable chest. Stable right midlung opacity consistent with prior detected small pleural effusion in the fissure. Electronically Signed: Kalebdaniela Jania, at 7:19 EST Tel , Service support , Chest CTA 12/29/19 07:03 IMPRESSION: 1. New necrotizing pneumonia with traction bronchiectasis in the right lung apex measuring at least 5.5 x 5.3 cm and abuts the paraseptal cysts of the right lung apex. 2. Increasing groundglass opacities in the right upper lobe. 3. Right paratracheal mediastinal lymphadenopathy with cystic necrosis measures at least 4.8 x 4 x 5.5 cm and the right hilar lymphadenopathy measures at least 3.4 x 3.1 cm. Allowing for interobserver differences, these are unchanged. 4. No CTA evidence of pulmonary thromboemboli or thoracic aortic dissection. 5. Mild dilatation of the ascending aorta with a diameter of 3.9 cm versus 2.3 cm for the descending thoracic aorta. This is unchanged. 6. Decreased right pleural fluid and fluid along the right major fissure. 7. No other additional findings or changes since 12/18/2019. Electronically Signed: David Jo MD at 8:37 EST , Service support , Current Medications Acetaminophen (Acetaminophen 325 Mg Tablet) 650 mg PO Q6H PRN PRN PRN Reason: Pain Score 1-10/Temp > 100.7 F Al Hydroxide/Mg Hydroxide (Mag Hydrox/Al Hydrox/Simeth 30 Ml Udc) 30 ml PO Q6H PRN PRN PRN Reason: Gastric Burning Albuterol/Ipratropium (Ipratropium/Albuterol Sulfate 3 Ml Ampul.Neb) 3 ml INHALATION Q4H.RT PRN PRN Reason: sob Atorvastatin Calcium (Atorvastatin Calcium 80 Mg Tablet) 80 mg PO DAILY@2200 [facility] Last Admin: 01/02/20 21:35 Dose: Not Given Documented by: Bisacodyl (Bisacodyl 5 Mg Tablet) 5 mg PO DAILY PRN PRN PRN Reason: Constipation Escitalopram Oxalate (Escitalopram Oxalate 10 Mg Tablet) 10 mg PO DAILY [facility] Last Admin: 01/03/20 07:52 Dose: 10 mg Documented by: Folic Acid (Folic Acid 1 Mg Tablet) 1 mg PO DAILYCM [facility] Last Admin: 01/03/20 07:52 Dose: 1 mg Documented by: Gabapentin (Gabapentin 400 Mg Capsule) 400 mg PO TIDCM [facility] Last Admin: 01/03/20 07:52 Dose: 400 mg Documented by: Guaifenesin (Guaifenesin 1,200 Mg Tablet) 1,200 mg PO BID [facility] Last Admin: 01/03/20 12:24 Dose: Not Given Documented by: Hydromorphone HCl (Hydromorphone 1 Mg/Ml Syringe) 1 mg IV Q4H PRN PRN PRN Reason: Pain Score 6-10 Last Admin: 01/03/20 11:58 Dose: 1 mg Documented by: Sodium Chloride () 250 mls @ 15 mls/hr IV .[id number] PRN PRN Reason: Saline Flush Last Infusion: 01/02/20 22:54 Dose: 0 mls/hr Documented by: Sodium Chloride () 250 mls @ 15 mls/hr IV .[id number] PRN PRN Reason: Additional IVPB Infusion Ampicillin Sodium/Sulbactam (Sodium 3 gm/ Sodium Chloride) 112 mls @ 150 mls/hr IV Q8 [facility] Last Infusion: 01/03/20 05:59 Dose: Infused Documented by: Lorazepam (Lorazepam 1 Mg Tablet) 1 mg PO Q6H PRN PRN PRN Reason: ANXIETY Last Admin: 01/03/20 10:01 Dose: 1 mg Documented by: Metoprolol Succinate (Metoprolol(Xl)Succ 25 Mg Tablet) 25 mg PO DAILY [facility] Last Admin: 01/03/20 12:24 Dose: Not Given Documented by: Morphine Sulfate (Morphine Sr 15 Mg Tablet) 15 mg PO TID [facility] Last Admin: 01/03/20 05:06 Dose: 15 mg Documented by: Nitroglycerin (Nitroglycerin (Inpatient Use) 0.4 Mg Tab.Subl) 0.4 mg SUBLINGUAL Q5M PRN PRN Reason: CARDIAC/CHEST PAIN Ondansetron HCl (Ondansetron 4 Mg/2 Ml Vial) 4 mg IV Q8H PRN PRN PRN Reason: NAUSEA/VOMITING Oxycodone HCl (Oxycodone 5 Mg Tablet) 5 mg PO Q4H PRN PRN PRN Reason: Pain Score 4-5 Last Admin: 01/03/20 10:00 Dose: 5 mg Documented by: Pantoprazole Sodium (Pantoprazole Sodium 40 Mg Tablet) 40 mg PO BID [facility] Last Admin: 01/03/20 12:24 Dose: Not Given Documented by: Phenol/Menthol (Phenol/Sodium Phenolate 180ml) 5 spray MM Q2H PRN PRN PRN Reason: SORE THROAT Prochlorperazine Edisylate (Prochlorperazine 10 Mg/2 Ml Vial) 5 mg IV Q4H PRN PRN PRN Reason: Breakthrough Nausea/Vomiting Psyllium Hydrophilic Mucilloid (Psyllium 1 Packet) 1 packet PO DAILY [facility] Last Admin: 01/03/20 12:23 Dose: Not Given Documented by: Senna/Docusate Sodium (Senna/Docusate Sodium 1 Tablet) 2 tablet PO BID [facility] Last Admin: 01/03/20 10:00 Dose: 2 tablet Documented by: Sodium Chloride (0.9% Saline Lock 10 Ml Syringe) 10 - 40 ml IV UD PRN PRN Reason: Port-a-Cath (VAD) Flush Last Admin: 01/03/20 02:48 Dose: 10 ml Documented by: Sodium Chloride (0.9 % Nacl (Sterile) Posiflush 10 Ml) 10 - 40 ml IV UD PRN PRN Reason: Port access or dressing change Tbo-Filgrastim (Tbo-Filgrastim 480 Mcg/0.8 Ml Ml) 480 mcg SC DAILY [facility] Last Admin: 01/03/20 12:23 Dose: Not Given Documented by: Trazodone HCl (Trazodone 50 Mg Tablet) 50 mg PO QHS [facility] Last Admin: 01/02/20 21:28 Dose: 50 mg Documented by: Zolpidem Tartrate (Zolpidem Tartrate 5 Mg Tablet) 5 mg PO QHS PRN PRN PRN Reason: INSOMNIA Last Admin: 01/02/20 22:45 Dose: 5 mg Documented by: STROKE Vital Signs/Narrative: Vital Signs Temp Pulse Resp BP Pulse Ox 01/03/20 11:25 98.8 F 86 16 97/61 94 01/03/20 09:56 97.8 F 89 18 97/56 L 01/03/20 08:56 97.0 F L 81 20 H 90/61 96 Medical Necessity - Tobacco Use Smoking Status: Light Smoker (<10/day) Assessment/Plan All Active Problems (Last Updated 04/10/18 @ 11:34 by Raine Huber) Elevated lactic acid level (Acute) Necrotizing pneumonia (Acute) Acute pulmonary embolism (Resolved 04/08/18) Chest pain (Resolved) Intermittent palpitations (Resolved) STEMI (ST elevation myocardial infarction) (Resolved) # Severe sepsis due to necrotising right apical pneumonia patient has a hsitory of right lung cancer on IV unasyn. respiratory panel and urinary antigens for Strep and Legionella were negative per ID, to continue on POO augmentin for 3 weeks upon discharge. # Right lung cancer has had 4 cycles of chemotherapy. Says it is a stage 3 cancer to follow up with oncologist at [facility] upon discharge # CAD s/ps tents: # Acute on chronic anemia: HemoGlobin today is 6.8. States he coughed up scant blood but no other obvious bleeding source. Check stool for occult blood. Will transfuse with 1 unit of packed red blood cells today. # Pancytopenia improving. WBC is up to 2.1 today, platelets are 39. Likely due to chemotherapy and lung cancer. continue monitoring. received a dose of granix. COPD: On breathing treatments. Not in exacerbation. Hypertension: On metoprolol Hyperlipidemia: On statin History of chronic alcohol and nicotine dependence: nicotine patch. last alcohol drink was >2 weeks ago. Stable. DVT prophylaxis; SCDs. blood thinners stopped o/a of anemia. Inpatient E&M: 78597 Subs Hosp L2
[2020-01-03] MEDS: Furosemide 40 MG/4 ML Vial IV (14:39)
--- NOTE | 2020-01-03 18:59 | NURSING ---
Patient demanding pain meds q 2 hours. PO is always ineffective and requires IV pain meds. No change in pain score.
[2020-01-03] MEDS: Atorvastatin Calcium 80 MG Tablet PO (21:38)
[2020-01-03] MEDS: Pantoprazole Sodium 40 MG Tablet PO (21:38)
[2020-01-03] MEDS: guaiFENesin 1,200 MG Tablet 1200 MG PO (21:38)
[2020-01-03] MEDS: traZODone 50 MG Tablet PO (21:38)
[2020-01-04] MEDS: HYDROmorphone 1 MG/ML Syringe IV ×3 (00:38→09:51)
[2020-01-04] MEDS: 0.9% Saline Lock 10 ML Syringe IV ×2 (00:39→04:51)
[2020-01-04 02:07] VITALS: BP 106/63; PULSE 78; RESP 16; TEMP 36.7; O2SAT 93
[2020-01-04] MEDS: oxyCODONE 5 MG Tablet PO ×2 (02:24→11:08)
[2020-01-04 05:47] VITALS: BP 103/68; PULSE 84; RESP 16; TEMP 36.9; O2SAT 93
[2020-01-04] MEDS: morphine SR 15 MG Tablet PO (05:48)
[2020-01-04] MEDS: LORazepam 1 MG Tablet PO (06:03)
[2020-01-04 09:47] LABS: Absolute Lymphocyte Count 0.43 X10^3/uL (0.83-4.51); Absolute Neutrophil Count 3.3 X10^3/uL (2.0-7.7); Basophil# 0.01 X10^3/uL; Basophil% 0.2 % (0-1); Eosinophil# 0.02 X10^3/uL; Eosinophils% 0.5 % (0-5); Hematocrit 26.5 % (40-54); Hemoglobin 8.5 g/dL (13.0-16.5); Lymphocyte # 0.43 X10^3/ul (4.0); Lymphocyte % 10.1 % (19-41); Mean Corp Hgb Conc 32.1 g/dL (32-36); Mean Corpuscular Hgb 31.4 pg (27.0-32.0); Mean Corpuscular Volume 97.8 fL (80-94); Mean Platelet Vol. 11.3 fl (6.2-12.0); Monocyte# 0.44 X10^3/uL; Monocyte% 10.3 % (0-10); NRBC Flagged by Analyzer 0 % (0-5); Neutrophil # 3.32 X10^3/uL (2.7-7.7); POSITIVE COUNT YES; POSITIVE DIFFERENTIAL YES; POSITIVE MORPHOLOGY YES; RBC Distribution Width SD 74.6 fl (35.1-43.9); Red Blood Count 2.71 M/mm3 (4.6-6.2); White Blood Count 4.3 K/mm3 (4.4-11.0)
[2020-01-04] MEDS: Gabapentin 400 MG Capsule PO ×2 (09:55→11:09)
[2020-01-04] MEDS: Senna/Docusate Sodium 1 Tablet 2 TABLET PO (09:55)
[2020-01-04] MEDS: Pantoprazole Sodium 40 MG Tablet PO (09:55)
[2020-01-04] MEDS: Folic Acid 1 MG Tablet PO (09:56)
[2020-01-04] MEDS: Escitalopram Oxalate 10 MG Tablet PO (09:56)
[2020-01-04 10:01] LABS: Differential Indicated SCAN CRITERIA MET; Platelet Count 37 K/mm3 (150-450)
[2020-01-04 10:10] LABS: Anion Gap 4 (5-15); BUN 9 mg/dL (7-18); BUN/Creat Ratio 13.4 RATIO (10-20); Calcium,Total 7.9 mg/dL (8.5-10.1); Chloride 109 mmol/L (98-107); Creatinine, Serum 0.67 mg/dL (0.70-1.30); EST Glomerular Filtration Rate 131 mL/min (>60); Est Glom Filt Rate - Afr Amer 159 mL/min (>60); Estimated Creatinine Clearance 141.19 ml/min; Glucose 100 mg/dL (74-106); Potassium 2.9 mmol/L (3.5-5.1); Sodium Level 141 mmol/L (136-145)
[2020-01-04 10:32] LABS: Differential Comment SCANNED; Toxic Granulation 1+
[2020-01-04 10:33] LABS: Anisocytosis 1+; Platelet Estimate MOD DEC (ADEQ); Red Cell Morphology N CHROM NORMAL (NORM C&C)
--- NOTE | 2020-01-04 11:07 | PCM.DC ---
- Discharge Diagnoses Current Active Problems: Current Active and Chronic Problems (Last Updated 04/10/18 @ 11:33 by Raine Huber) Elevated lactic acid level (Acute) PAF (paroxysmal atrial fibrillation) (Chronic) COPD (chronic obstructive pulmonary disease) (Chronic) Lung cancer (Chronic) Chest pain (Chronic) Pharyngitis (Chronic) Necrotizing pneumonia (Acute) Essential (primary) hypertension (Chronic) Nicotine dependence (Chronic) HLD (hyperlipidemia) (Chronic) Alcohol abuse (Chronic) NSTEMI (non-ST elevated myocardial infarction) (Chronic 04/07/18) Atherosclerosis of coronary artery of [place] heart with angina pectoris (Chronic) BMS-Prox and Distal RCA 12/23/16 History of coronary artery stent placement (Chronic 12/23/16) BMS-Prox and Distal RCA 12/23/16 You will use the following diet at home:: Cardiac Your food should be the consistency of: Regular Your liquids should be the consistency of: Regular/Thin Discharge Activity: Return to Normal Activity Weight Bearing Status: Weight bearing as tolerated Call your doctor if you observe: Fever of 101 or Higher, Shortness of breath, Dizziness, Increased palpitations (irregular heartbeat), Uncontrolled pain Instructions: Pneumonia, Anemia Additional Instructions: to see PCP for BMP in 2-3 days to follow up on serum potassium level Follow up with oncologist at [facility] at next scheduled appointment Allergies/Adverse Reactions: Allergies No Known Allergies Allergy (Verified 12/29/19 05:59) Medications to take at Discharge Aspirin [Aspirin, Baby] 162 mg PO DAILY@0800 10/03/17 Clonazepam [Klonopin] 0.5 mg PO Q8H PRN PRN 09/08/19 Escitalopram Oxalate [Lexapro] 10 mg PO DAILY 09/08/19 Folic Acid 1 mg PO DAILY 09/08/19 Morphine [Morphine IR] 15 mg PO Q4H PRN PRN 09/08/19 Metoprolol Tartrate [Lopressor (beta luis)] 50 mg PO DAILY 10/28/19 Albuterol IH (ProAir) [Proair Hfa] 1 - 2 puff INHALATION Q4H PRN PRN #1 inhaler 10/30/19 Apixaban [Eliquis] 5 mg PO BID #0 10/30/19 Gabapentin [Neurontin] 400 mg PO TIDCM #90 cap 10/30/19 Pantoprazole Sodium [Protonix] 40 mg PO BID #60 tab 10/30/19 Phenol/Sodium Phenolate [Chloraseptic (BKC)] 5 spray MM Q2H PRN PRN #1 bottle 10/30/19 Atorvastatin Calcium 80 mg PO DAILY 11/09/19 traZODone [Desyrel] 50 mg PO QHS 11/09/19 morphine SR tablet [Ms Contin] 15 mg BC TID 12/29/19 Amoxicillin/Potassium Clav [Augmentin 875-125 Tablet] 1 ea PO BID #42 tab 01/01/20 Potassium Chloride [K-Dur] 40 meq PO DAILY #20 tab 01/04/20 The following prescriptions were given: Amoxicillin/Potassium Clav [Augmentin 875-125 Tablet] 1 ea PO BID #42 tab Transmission Status: Received by [facility]/pharmacy #[id number] Potassium Chloride [K-Dur] 40 meq PO DAILY #20 tab Transmission Status: Pending to [facility] Primary Care Physician: Care Physician,No Primary [NON-STAFF] - Test Results: Test results from this visit will be discussed in further detail at your follow-up appointment, if applicable. Proposed Discharge Date: 01/04/20
--- NOTE | 2020-01-04 11:15 | PCM.DC.SUM ---
Discharge Date and Diagnosis - Problem List Patient Problems: Active and Suspected Problems (Last Updated 04/10/18 @ 11:34 by Raine Huber) Elevated lactic acid level (Acute) Necrotizing pneumonia (Acute) Date of Admission: 12/29/19 Date of Discharge: 01/04/20 - Primary Discharge Diagnosis Acute Problems: Active Problems (Last Updated 04/10/18 @ 11:34 by Raine Huber) Elevated lactic acid level (Acute) Necrotizing pneumonia (Acute) - Secondary Discharge Diagnosis Chronic Problems: Chronic Problems (Last Updated 04/10/18 @ 11:33 by Raine Huber) PAF (paroxysmal atrial fibrillation) (Chronic) COPD (chronic obstructive pulmonary disease) (Chronic) Lung cancer (Chronic) Chest pain (Chronic) Pharyngitis (Chronic) Essential (primary) hypertension (Chronic) Nicotine dependence (Chronic) HLD (hyperlipidemia) (Chronic) Alcohol abuse (Chronic) NSTEMI (non-ST elevated myocardial infarction) (Chronic 04/07/18) Atherosclerosis of coronary artery of [place] heart with angina pectoris (Chronic) BMS-Prox and Distal RCA 12/23/16 History of coronary artery stent placement (Chronic 12/23/16) BMS-Prox and Distal RCA 12/23/16 Hospital Course and Treatment Imaging Results: Diagnostic Data Chest X-Ray 12/29/19 06:00 IMPRESSION: Stable chest. Stable right midlung opacity consistent with prior detected small pleural effusion in the fissure. Electronically Signed: Kalebdaniela Jania, at 7:19 EST Tel , Service support , Chest CTA 12/29/19 07:03 IMPRESSION: 1. New necrotizing pneumonia with traction bronchiectasis in the right lung apex measuring at least 5.5 x 5.3 cm and abuts the paraseptal cysts of the right lung apex. 2. Increasing groundglass opacities in the right upper lobe. 3. Right paratracheal mediastinal lymphadenopathy with cystic necrosis measures at least 4.8 x 4 x 5.5 cm and the right hilar lymphadenopathy measures at least 3.4 x 3.1 cm. Allowing for interobserver differences, these are unchanged. 4. No CTA evidence of pulmonary thromboemboli or thoracic aortic dissection. 5. Mild dilatation of the ascending aorta with a diameter of 3.9 cm versus 2.3 cm for the descending thoracic aorta. This is unchanged. 6. Decreased right pleural fluid and fluid along the right major fissure. 7. No other additional findings or changes since 12/18/2019. Electronically Signed: David Jo MD at 8:37 EST , Service support , Diagnostic Data Chest X-Ray 12/29/19 06:00 IMPRESSION: Stable chest. Stable right midlung opacity consistent with prior detected small pleural effusion in the fissure. Electronically Signed: Danielito Dykes, at 7:19 EST Tel , Service support , Chest CTA 12/29/19 07:03 IMPRESSION: 1. New necrotizing pneumonia with traction bronchiectasis in the right lung apex measuring at least 5.5 x 5.3 cm and abuts the paraseptal cysts of the right lung apex. 2. Increasing groundglass opacities in the right upper lobe. 3. Right paratracheal mediastinal lymphadenopathy with cystic necrosis measures at least 4.8 x 4 x 5.5 cm and the right hilar lymphadenopathy measures at least 3.4 x 3.1 cm. Allowing for interobserver differences, these are unchanged. 4. No CTA evidence of pulmonary thromboemboli or thoracic aortic dissection. 5. Mild dilatation of the ascending aorta with a diameter of 3.9 cm versus 2.3 cm for the descending thoracic aorta. This is unchanged. 6. Decreased right pleural fluid and fluid along the right major fissure. 7. No other additional findings or changes since 12/18/2019. Electronically Signed: David Jo MD at 8:37 EST , Service support , Operations: None Procedures: None Summary of Care Provided: The patient is a 54 year old M with an extensive past medical history as outlined who was admitted through the ED on 12/29/2019 with right-sided chest pain and near syncope. Patient has a history of uncertain chemotherapy and had just had his last round of chemotherapy about 5 days prior to admission started also having right-sided pain which readmitted to 3 days prior to admission so he came into the ED ED his blood pressure was initially low at 97/60 with a heart rate of 121. CBC showed pancytopenia with elevated lactic acid of 2.2 and potassium of 3.4. D-dimer was 190 was negative. EDDIE done showed Robi pneumonia with traction bronchiectasis stasis in the right paratracheal mediastinal lymphadenopathy. He was admitted and managed for severe sepsis due to necrotizing pneumonia. He was hydrated with IV fluids and started on IV vancomycin and Zosyn. Critical care consulted. ID was also consulted. Pain gradually improved and he was transferred out of ICU. Patient stay was also complicated by anemia with hemoglobin dropping to 6.8. He was placed on Granix for pi?a neutropenia subsequently improved. Will transfuse with 1 unit of packed red blood cells. Hemoglobin level came up to 8.5 at time of discharge. Urine and blood cultures were all negative. Patient remained stable and antibiotics were transitioned to IV Unasyn. Remained stable and was discharged home on 01/04/2020 with a prescription for p.o. Augmentin 875/125 mg twice daily for 3 weeks. He is to follow-up with his PCP and with his oncologist at [facility] as scheduled. Patient seen and examined prior to discharge. He felt well and had no complaints. His potassium was 2.9. Patient was not willing to stay for IV potassium replacement so he was given p.o. potassium 60 mg x 1.. Home Medication reviewed and reconciled. O/E: Vital Signs Temp Pulse Resp BP Pulse Ox 97.9 F 82 16 102/58 L 97 01/04/20 11:28 01/04/20 11:28 01/04/20 11:28 01/04/20 11:28 01/04/20 11:28 General: Alert, Oriented x3, Cooperative, No apparent distress HEENT: Atraumatic, PERRLA, EOMI, Normocephalic Oral: Dry Mucosa Neck: Supple, No JVD, Negative Carotid Bruits Lungs: Clear to auscultation, Normal air movement, No rhonchi, No wheeze, No rales Cardiovascular: Regular rate, Regular Rhythm, Normal S1, Normal S2, No murmurs Abdomen: Bowel Sounds Present, Soft, Non Tender, Non-Distended, No Hepato-splenomegaly Extremities: No clubbing, No cyanosis, No edema, Capillary Refill Less than 3 Seconds Skin: No rashes, No breakdown Musculoskeletal: No Tenderness to Palpation of Joints or Extremities Lymphatic: No Cervical, Supraclavicular, or Inguinal Adenopathy Neurological: Cranial nerves II-XII grossly intact, Neuro grossly intact, Motor Exam 5/5 strength throughout Psych/Mental Status: Normal Affect, Appropriate, Alert and oriented to time, place, person, mood and affect Plan is for dc home today Patient Problems: Active and Suspected Problems (Last Updated 04/10/18 @ 11:34 by Raine Huber) Elevated lactic acid level (Acute) Necrotizing pneumonia (Acute) - Physical Exam Vitals/I&O's: Vital Signs Temp Pulse Resp BP Pulse Ox 98.4 F 84 16 103/68 93 01/04/20 05:47 01/04/20 05:47 01/04/20 05:47 01/04/20 05:47 01/04/20 05:47 Oxygen Delivery Method Room Air Weight: 174 lb 9.698 oz Body Mass Index (BMI) 21.4 Intake and Output for Last 24 Hours 01/02/20 01/03/20 01/04/20 23:59 23:59 23:59 Intake Total 1835.25 / 2315.25 1716 / 1716 262 / 262 Output Total 300 / 300 Balance 1835.25 / 2315.25 1416 / 1416 262 / 262 Microbiology Past 72 Hours 01/03/20 10:10 Sputum, Expectorated/Coughed Gram Stain - Final 01/03/20 10:10 Sputum, Expectorated/Coughed Respiratory Culture - Preliminary Appears to be normal respiratory lucy. Further studies to follow. 12/29/19 06:40 Blood Culture (Wb) - Arm Left Blood Culture - Final No growth in 5 days. 12/29/19 06:44 Blood Culture (Wb) - Left Hand Blood Culture - Final No growth in 5 days. Laboratory Results 01/03/20 05:10: Crossmatch See Detail 01/04/20 09:25: WBC 4.3 L, RBC 2.71 L, Hgb 8.5 L, Hct 26.5 L, MCV 97.8 H, MCH 31.4, MCHC 32.1, RDW Std Deviation 74.6 H, RDW Coeff of Radha 21.0 H, Plt Count 37 L*, MPV 11.3, Immature Gran % (Auto) 0.900, Neut % (Auto) 78.0 H, Lymph % (Auto) 10.1 L, Kane % (Auto) 10.3 H, Eos % (Auto) 0.5, Baso % (Auto) 0.2, Absolute Neuts (auto) 3.3, Absolute Lymphs (auto) 0.43 L, Nucleated RBC % 0, Differential Comment SCANNED, Diff Path Review May foll, Toxic Granulation 1+, Platelet Estimate MOD DEC, RBC Morphology N CHROM, Anisocytosis 1+ 01/04/20 09:25: Sodium 141, Potassium 2.9 L, Chloride 109 H, Carbon Dioxide 28.0, Anion Gap 4 L, BUN 9, Creatinine 0.67 L, Estim Creat Clear Calc 141.19, Est GFR (MDRD) Af Amer 159, Est GFR (MDRD) Non-Af 131, BUN/Creatinine Ratio 13.4, Glucose 100, Calcium 7.9 L Current Medications Acetaminophen (Acetaminophen 325 Mg Tablet) 650 mg PO Q6H PRN PRN PRN Reason: Pain Score 1-10/Temp > 100.7 F Al Hydroxide/Mg Hydroxide (Mag Hydrox/Al Hydrox/Simeth 30 Ml Udc) 30 ml PO Q6H PRN PRN PRN Reason: Gastric Burning Albuterol/Ipratropium (Ipratropium/Albuterol Sulfate 3 Ml Ampul.Neb) 3 ml INHALATION Q4H.RT PRN PRN Reason: sob Atorvastatin Calcium (Atorvastatin Calcium 80 Mg Tablet) 80 mg PO DAILY@2200 [facility] Last Admin: 01/03/20 21:38 Dose: 80 mg Documented by: Bisacodyl (Bisacodyl 5 Mg Tablet) 5 mg PO DAILY PRN PRN PRN Reason: Constipation Escitalopram Oxalate (Escitalopram Oxalate 10 Mg Tablet) 10 mg PO DAILY [facility] Last Admin: 01/04/20 09:56 Dose: 10 mg Documented by: Folic Acid (Folic Acid 1 Mg Tablet) 1 mg PO DAILYCM [facility] Last Admin: 01/04/20 09:56 Dose: 1 mg Documented by: Gabapentin (Gabapentin 400 Mg Capsule) 400 mg PO TIDCM [facility] Last Admin: 01/04/20 11:09 Dose: 400 mg Documented by: Guaifenesin (Guaifenesin 1,200 Mg Tablet) 1,200 mg PO BID [facility] Last Admin: 01/04/20 09:56 Dose: Not Given Documented by: Hydromorphone HCl (Hydromorphone 1 Mg/Ml Syringe) 1 mg IV Q4H PRN PRN PRN Reason: Pain Score 6-10 Last Admin: 01/04/20 09:51 Dose: 1 mg Documented by: Sodium Chloride () 250 mls @ 15 mls/hr IV .[id number] PRN PRN Reason: Saline Flush Last Infusion: 01/02/20 22:54 Dose: 0 mls/hr Documented by: Sodium Chloride () 250 mls @ 15 mls/hr IV .[id number] PRN PRN Reason: Additional IVPB Infusion Ampicillin Sodium/Sulbactam (Sodium 3 gm/ Sodium Chloride) 112 mls @ 150 mls/hr IV Q8 [facility] Last Infusion: 01/04/20 06:33 Dose: Infused Documented by: Lorazepam (Lorazepam 1 Mg Tablet) 1 mg PO Q6H PRN PRN PRN Reason: ANXIETY Last Admin: 01/04/20 06:03 Dose: 1 mg Documented by: Metoprolol Succinate (Metoprolol(Xl)Succ 25 Mg Tablet) 25 mg PO DAILY [facility] Last Admin: 01/04/20 09:57 Dose: Not Given Documented by: Morphine Sulfate (Morphine Sr 15 Mg Tablet) 15 mg PO TID [facility] Last Admin: 01/04/20 05:48 Dose: 15 mg Documented by: Nitroglycerin (Nitroglycerin (Inpatient Use) 0.4 Mg Tab.Subl) 0.4 mg SUBLINGUAL Q5M PRN PRN Reason: CARDIAC/CHEST PAIN Ondansetron HCl (Ondansetron 4 Mg/2 Ml Vial) 4 mg IV Q8H PRN PRN PRN Reason: NAUSEA/VOMITING Oxycodone HCl (Oxycodone 5 Mg Tablet) 5 mg PO Q4H PRN PRN PRN Reason: Pain Score 4-5 Last Admin: 01/04/20 11:08 Dose: 5 mg Documented by: Pantoprazole Sodium (Pantoprazole Sodium 40 Mg Tablet) 40 mg PO BID [facility] Last Admin: 01/04/20 09:55 Dose: 40 mg Documented by: Phenol/Menthol (Phenol/Sodium Phenolate 180ml) 5 spray MM Q2H PRN PRN PRN Reason: SORE THROAT Prochlorperazine Edisylate (Prochlorperazine 10 Mg/2 Ml Vial) 5 mg IV Q4H PRN PRN PRN Reason: Breakthrough Nausea/Vomiting Psyllium Hydrophilic Mucilloid (Psyllium 1 Packet) 1 packet PO DAILY [facility] Last Admin: 01/04/20 09:56 Dose: Not Given Documented by: Senna/Docusate Sodium (Senna/Docusate Sodium 1 Tablet) 2 tablet PO BID [facility] Last Admin: 01/04/20 09:55 Dose: 2 tablet Documented by: Sodium Chloride (0.9% Saline Lock 10 Ml Syringe) 10 - 40 ml IV UD PRN PRN Reason: Port-a-Cath (VAD) Flush Last Admin: 01/04/20 04:51 Dose: 20 ml Documented by: Sodium Chloride (0.9 % Nacl (Sterile) Posiflush 10 Ml) 10 - 40 ml IV UD PRN PRN Reason: Port access or dressing change Trazodone HCl (Trazodone 50 Mg Tablet) 50 mg PO QHS [facility] Last Admin: 01/03/20 21:38 Dose: 50 mg Documented by: Zolpidem Tartrate (Zolpidem Tartrate 5 Mg Tablet) 5 mg PO QHS PRN PRN PRN Reason: INSOMNIA Last Admin: 01/02/20 22:45 Dose: 5 mg Documented by: Discharge Activity: Return to Normal Activity Weight Bearing Status: Weight bearing as tolerated Call your doctor if you observe: Fever of 101 or Higher, Shortness of breath, Dizziness, Increased palpitations (irregular heartbeat), Uncontrolled pain Home Medications: Medications to take at Discharge Aspirin [Aspirin, Baby] 162 mg PO DAILY@0800 10/03/17 Clonazepam [Klonopin] 0.5 mg PO Q8H PRN PRN 09/08/19 Escitalopram Oxalate [Lexapro] 10 mg PO DAILY 09/08/19 Folic Acid 1 mg PO DAILY 09/08/19 Morphine [Morphine IR] 15 mg PO Q4H PRN PRN 09/08/19 Metoprolol Tartrate [Lopressor (beta luis)] 50 mg PO DAILY 10/28/19 Albuterol IH (ProAir) [Proair Hfa] 1 - 2 puff INHALATION Q4H PRN PRN #1 inhaler 10/30/19 Apixaban [Eliquis] 5 mg PO BID #0 10/30/19 Gabapentin [Neurontin] 400 mg PO TIDCM #90 cap 10/30/19 Pantoprazole Sodium [Protonix] 40 mg PO BID #60 tab 10/30/19 Phenol/Sodium Phenolate [Chloraseptic ([facility])] 5 spray MM Q2H PRN PRN #1 bottle 10/30/19 Atorvastatin Calcium 80 mg PO DAILY 11/09/19 traZODone [Desyrel] 50 mg PO QHS 11/09/19 morphine SR tablet [Ms Contin] 15 mg BC TID 12/29/19 Amoxicillin/Potassium Clav [Augmentin 875-125 Tablet] 1 ea PO BID #42 tab 01/01/20 Potassium Chloride [K-Dur] 40 meq PO DAILY #20 tab 01/04/20 Following Prescriptions Were Given to Patient: Amoxicillin/Potassium Clav [Augmentin 875-125 Tablet] 1 ea PO BID #42 tab Transmission Status: Received by [facility]/pharmacy #[id number] Potassium Chloride [K-Dur] 40 meq PO DAILY #20 tab Transmission Status: Received by [facility] Primary Care Physician: Care Physician,No Primary [NON-STAFF] - Patient Instructions: Anemia, Pneumonia Disposition: Home Minutes spent on discharge:: 40 Patient Condition:: Stable Medical Necessity - Tobacco Use Smoking Status: Light Smoker (<10/day) Meaningful Use Info Meaningful Use Diagnoses (Choose all that apply): None applicable Inpatient E&M: 50492 [facility] L3
--- NOTE | 2020-01-04 11:25 | CASEMGMT ---
RN MALCOLM NOTE: Pt being discharged today. RN CM to room to discuss discharge planning. Pt up in room, getting dressed to go home. Pt denies having any concerns/needs with going home. Elisabeth ARMSTRONGN RN
[2020-01-04 11:28] VITALS: BP 102/58; PULSE 82; RESP 16; TEMP 36.6; O2SAT 97
[2020-01-04 14:27] LABS: Pathologist Review Reviewed
[2020-01-07 12:53] LABS: Pathologist Review Reviewed
== END 2020-01-04 12:15 | disposition home or self-care (01) | DRG 871 ==
LOC: ED 06:37 → ICU 09:56 → PCU 01-01 11:13
PROVIDERS: Admitting Provider Internal Medicine; Emergency Provider Student in an Organized Health Care Education/Training Program; PCP Nurse Practitioner Family; Visit Provider Student in an Organized Health Care Education/Training Program
DX: A41.9 Sepsis, unspecified organism (principal); D61.810 Antineoplastic chemotherapy induced pancytopenia; J85.0 Gangrene and necrosis of lung; C34.91 Malignant neoplasm of unspecified part of right bronchus or lung; F13.20 Sedative, hypnotic or anxiolytic dependence, uncomplicated; F11.20 Opioid dependence, uncomplicated; J47.0 Bronchiectasis with acute lower respiratory infection; D63.0 Anemia in neoplastic disease; T45.1X5A Adverse effect of antineoplastic and immunosuppressive drugs, initial encounter; R65.20 Severe sepsis without septic shock; E78.5 Hyperlipidemia, unspecified; E83.42 Hypomagnesemia; E86.0 Dehydration; E87.6 Hypokalemia; F10.10 Alcohol abuse, uncomplicated; F17.210 Nicotine dependence, cigarettes, uncomplicated; G89.3 Neoplasm related pain (acute) (chronic); G89.4 Chronic pain syndrome; I25.2 Old myocardial infarction; I48.0 Paroxysmal atrial fibrillation; I49.3 Ventricular premature depolarization; I95.1 Orthostatic hypotension; I25.119 Atherosclerotic heart disease of native coronary artery with unspecified angina pectoris; I10 Essential (primary) hypertension; F32.9 Major depressive disorder, single episode, unspecified; F41.9 Anxiety disorder, unspecified; Z86.711 Personal history of pulmonary embolism; Z79.899 Other long term (current) drug therapy; Z79.01 Long term (current) use of anticoagulants; Z95.5 Presence of coronary angioplasty implant and graft; Z79.82 Long term (current) use of aspirin
CPT/HCPCS: 36591; 71045; 71275; 80048; 80053; 80202; 80320; 81001; 83605; 83735; 84100; 84145; 84484; 85025; 85379; 85610; 86850; 86900; 86901; 86920; 86922; 87040; 87070; 87086; 87205; 87449; 87633; 87635; 87641; 92610; 93005; 97162; 97802; 97803; 99285; 99406; J7030; J7040; J7050; P9016; Q9967; A4216; G0480; J0295; J1447; J1940; U0002

== ENCOUNTER 2020-01-11 19:47 | Inpatient (IN) | payer BC, SELFPAY ==
[2017-01-12 13:36] VITALS: BMI 26.6
[2019-12-29 10:37] VITALS: BMI 21.4
[2020-01-11 19:18] VITALS: BMI 20.9
[2020-01-11 19:19] VITALS: BMI 20.9
[2020-01-11 19:46] VITALS: BP 124/61; PULSE 75; RESP 18; TEMP 36.9; O2SAT 99
--- NOTE | 2020-01-11 19:55 | PCM.HP.STD ---
Problem List (1) PAF (paroxysmal atrial fibrillation) Status: Chronic (2) COPD (chronic obstructive pulmonary disease) Status: Chronic Qualifiers: COPD type: unspecified COPD Qualified Code(s): J44.9 - Chronic obstructive pulmonary disease, unspecified (3) Lung cancer Status: Chronic Qualifiers: Laterality: unspecified laterality Lung location: unspecified part of lung Qualified Code(s): C34.90 - Malignant neoplasm of unspecified part of unspecified bronchus or lung (4) Chest pain Status: Chronic Qualifiers: Chest pain type: unspecified Qualified Code(s): R07.9 - Chest pain, unspecified (5) Pharyngitis Status: Chronic Qualifiers: Pharyngitis/tonsillitis etiology: unspecified etiology Qualified Code(s): J02.9 - Acute pharyngitis, unspecified (6) Necrotizing pneumonia Status: Acute (7) Essential (primary) hypertension Status: Chronic (8) Nicotine dependence Status: Chronic Qualifiers: Substance use status: unspecified nicotine-induced disorder (9) HLD (hyperlipidemia) Status: Chronic Qualifiers: Hyperlipidemia type: unspecified Qualified Code(s): E78.5 - Hyperlipidemia, unspecified (10) Alcohol abuse Status: Chronic (11) Atherosclerosis of coronary artery of [place] heart with angina pectoris Status: Chronic Qualifiers: Coronary Disease-Associated Artery/Lesion type: unspecified vessel or lesion type Qualified Code(s): I25.119 - Atherosclerotic heart disease of [place] coronary artery with unspecified angina pectoris Comment: BMS-Prox and Distal RCA 12/23/16 (12) History of coronary artery stent placement Status: Chronic Comment: BMS-Prox and Distal RCA 12/23/16 History of Present Illness Date of Admission: 01/11/20 Chief Complaint: chest pain The patient is a 54 year old M with a significant history of paroxysmal A. fib; stage III squamous cell lung cancer; pulmonary embolism; and vocal cord dysfunction who was transferred from outside hospital ([facility]) where presented with right-sided chest pain. His chest pain has been going on for a day and a half prior to presentation. He describes his chest pain as sharp and constant. He rates his chest pain as an 8 out of 10 but it could go as high as a 10 out of 10. He denies any ameliorating or aggravating factors to the pain. Associated with his symptoms is anorexia and chills. He denies any fever. He denies any loss of taste. Once a while he has some hemoptysis but does not seem to bother him. At outside hospital a Covid test was done and results are pending.. Of note patient was admitted at our hospital on 12/29/2019 and discharged on 01/04/2020. During that admission he was treated for elevated lactic acid and necrotizing pneumonia. He was seen by infectious disease and pulmonary medicine. His nasal MRSA PCR was negative so vancomycin was discontinued.. Patient received Unasyn. Upon discharge he was placed on Augmentin for 3 weeks with plan to repeat CT chest prior to stopping antibiotics. Past Medical History Past Medical History (Chronic Problems): Chronic Problems (Last Reviewed 01/11/20 @ 20:[address] Ramón Reinoso MD) PAF (paroxysmal atrial fibrillation) (Chronic) COPD (chronic obstructive pulmonary disease) (Chronic) Lung cancer (Chronic) Chest pain (Chronic) Pharyngitis (Chronic) Essential (primary) hypertension (Chronic) Nicotine dependence (Chronic) HLD (hyperlipidemia) (Chronic) Alcohol abuse (Chronic) Atherosclerosis of coronary artery of [place] heart with angina pectoris (Chronic) BMS-Prox and Distal RCA 12/23/16 History of coronary artery stent placement (Chronic 12/23/16) BMS-Prox and Distal RCA 12/23/16 Medical History: Medical History (Last Reviewed 01/11/20 @ 20:[address] Raómn Reinoso MD) Essential (primary) hypertension (Chronic) I10 Nicotine dependence (Chronic) F17.200 HLD (hyperlipidemia) (Chronic) E78.5 Alcohol abuse (Chronic) F10.10 NSTEMI (non-ST elevated myocardial infarction) (Inactive) Onset Date: 04/07/18 I21.4 Atherosclerosis of coronary artery of [place] heart with angina pectoris (Chronic) I25.119 BMS-Prox and Distal RCA 12/23/16 Anxiety F41.9 Acute pulmonary embolism (Resolved) Onset Date: 04/08/18 I26.99 STEMI (ST elevation myocardial infarction) (Resolved) 12/23/16 STEMI (ST elevation myocardial infarction) I21.3 12/23/16 Noncompliance (Inactive) Z91.19 Allergies No Known Allergies Allergy (Verified 12/29/19 05:59) Home Medications: Ambulatory Orders Medication Instructions Recorded Aspirin [Aspirin, Baby] 162 mg PO DAILY@0800 10/03/17 Clonazepam [Klonopin] 0.5 mg PO Q8H PRN PRN 09/08/19 Escitalopram Oxalate [Lexapro] 10 mg PO DAILY 09/08/19 Folic Acid 1 mg PO DAILY 09/08/19 Morphine [Morphine IR] 15 mg PO Q4H PRN PRN 09/08/19 Metoprolol Tartrate [Lopressor 50 mg PO DAILY 10/28/19 (beta luis)] Albuterol IH (ProAir) [Proair Hfa] 1 - 2 puff INHALATION Q4H PRN PRN 10/30/19 #1 inhaler Apixaban [Eliquis] 5 mg PO BID #0 10/30/19 Gabapentin [Neurontin] 400 mg PO TIDCM #90 cap 10/30/19 Pantoprazole Sodium [Protonix] 40 mg PO BID #60 tab 10/30/19 Phenol/Sodium Phenolate 5 spray MM Q2H PRN PRN #1 bottle 10/30/19 [Chloraseptic (BKC)] Atorvastatin Calcium 80 mg PO DAILY 11/09/19 traZODone [Desyrel] 50 mg PO QHS 11/09/19 morphine SR tablet [Ms Contin] 15 mg BC TID 12/29/19 Potassium Chloride [K-Dur] 40 meq PO DAILY #20 tab 01/04/20 Mirtazapine [Remeron] 15 mg PO QHS 01/11/20 Surgical History: Surgical History (Last Reviewed 01/11/20 @ 20:[address] Ramón Reinoso MD) History of coronary artery stent placement (Chronic) Onset Date: 12/23/16 Z95.5 BMS-Prox and Distal RCA 12/23/16 History of left heart catheterization Onset Date: 04/07/18 Z98.890 12/23/16- PCI with BM stent to prox RCA & distal RCA; 01/12/17- patent BM stents; Surgical History: - - PCI x 2, T+A, L inguinal hernia repair, status post left neck surgery for abscess, status post left inguinal hernia repair Psychiatric History: Anxiety, Depression Smoking Status: Light Smoker (<10/day) - *Family History Maternal Family History: Family History (Last Reviewed 01/11/20 @ 20:[address] Ramón Reinoso MD) Father Myocardial infarction, Onset Age: 36 Mother Myocardial infarction Cancer History Items: Cancer - breast, Heart Disease - [place] Paternal Family History: Family History (Last Reviewed 01/11/20 @ 20:[address] Ramón Reinoso MD) Father Myocardial infarction, Onset Age: 36 Mother Myocardial infarction Cancer History Items: - - Patient notes a paternal family history of heart disease, passing secondary to fatal CT at age 36. Sibling Family History: Family History (Last Reviewed 01/11/20 @ 20:[address] Ramón Reinoso MD) Father Myocardial infarction, Onset Age: 36 Mother Myocardial infarction Cancer History Items: - - Patient notes a history of a sister who underwent a CABG early in life. Review of Systems Constitutional: Reports: Anorexia, Chills. Denies: Fever, Weight Change HEENT: Denies: Head Aches, Sinus Congestion, Sinus Drainage Cardiovascular: Reports: Chest Pain. Denies: Palpitations Respiratory: Reports: Cough, Hemoptysis, Shortness of Breath, Sputum production. Denies: Shortness of breath at rest Gastrointestinal: Denies: Abdominal Pain, Nausea, Vomiting Genitourinary: Denies: Dysuria Musculoskeletal: Denies: Joint Pain, Joint Tenderness Skin: Denies: Rash, Wounds Neurological: Denies: Numbness, Tingling, Focal weakness Psychiatric: Denies: Anxiety, Depression, Homicidal Ideations, Suicidal Ideations Hematologic/ Lymphatic: Denies: Easy Bruising, Easy Bleeding VTE Information - Inpt Only VTE Present on Admission: No VTE Mechan Device Prophylaxis: None VTE Pharm Prophylaxis ordered?: No Reason prophylaxis not ordered:: Treatment Not Indicated - Home Eliquis continued Patient Problems: Active and Suspected Problems (Last Reviewed 01/11/20 @ 20:[address] Ramón Reinoso MD) Necrotizing pneumonia (Acute) - Physical Exam Vitals/I&O's: Weight: 75.841 kg Body Mass Index (BMI) 20.9 General: Alert, Oriented x3, Cooperative HEENT: Atraumatic, PERRLA, EOMI, Normocephalic Neck: Supple, No JVD, Negative Carotid Bruits Lungs: Clear to auscultation, Diminished Cardiovascular: Regular rate, Normal S1, Normal S2, No murmurs Abdomen: Bowel Sounds Present, Soft, Non Tender Extremities: No edema, Capillary Refill Less than 3 Seconds Skin: No rashes, No breakdown Musculoskeletal: No Tenderness to Palpation of Joints or Extremities Neurological: Cranial nerves II-XII grossly intact Psych/Mental Status: Normal Affect, Appropriate Current Medications Sodium Chloride () 250 mls @ 15 mls/hr IV .[id number] PRN PRN Reason: Saline Flush Sodium Chloride () 250 mls @ 15 mls/hr IV .[id number] PRN PRN Reason: Additional IVPB Infusion Sodium Chloride (0.9% Saline Lock 10 Ml Syringe) 10 - 40 ml IV UD PRN PRN Reason: SALINE FLUSH Assessment/Plan All Active Problems (Last Reviewed 01/11/20 @ 20:[address] Ramón Reinoso MD) Necrotizing pneumonia (Acute) Acute pulmonary embolism (Resolved 04/08/18) Chest pain (Resolved) Intermittent palpitations (Resolved) STEMI (ST elevation myocardial infarction) (Resolved) Chest pain /persistent necrotizing pneumonia Actual chest x-ray image at outside hospital was independently interpreted: Hyperinflation with right upper lobe opacity. Imaging at outside hospital showed right upper lobe opacity. Chest CT on 12/29/2019 showed new necrotizing pneumonia with traction bronchiectasis in the right lung apex measuring at least 5.5 x 5.3 cm and about the paraseptal cysts of the right lung apex. Increasing groundglass opacities in the right upper lobe. Right paratracheal mediastinal lymphadenopathy with cystic necrosis measures at least 4.8 x 4 x 5.5 cm and the right hilar lymphadenopathy measures at least 3.4 x 3.1 cm EKG from outside hospital was reviewed. There was no ST segment elevation or significant T wave abnormality or ST depressions Patient received vancomycin and Zosyn at outside hospital. Get MRSA nasal screen. If MRSA nasal screen is positive would resume vancomycin. However will order Zosyn. Home as needed proair continued. Legionella antigen screen and Strep antigen ordered Continue home scheduled and as needed morphine. COVID-19 was done at outside hospital. Follow-up for results. For now keep on enhanced droplet precautions. Incentive parameter ordered. Trend CBC and BMP. Pulmonary medicine consult. Tobacco abuse Counselled Nicotine patch prescribed. History of PE Eliquis Continued Lung cancer On radiation and chemotherapy. DVT prophylaxis Not indicated since patient is on Eliquis. Inpatient E&M: 61967 Init Hosp L2
[2020-01-11 20:48] VITALS: RESP 18; O2SAT 90
--- NOTE | 2020-01-11 20:48 | CPS ---
Patient refused IS teaching and usage. Already has 3 at home per patient.
[2020-01-11] MEDS: clonazePAM 0.5 MG Tablet PO (21:30)
[2020-01-11] MEDS: Atorvastatin Calcium 80 MG Tablet PO (21:30)
[2020-01-11] MEDS: traZODone 50 MG Tablet PO (21:30)
[2020-01-11] MEDS: APIXABAN 5 MG TABLET PO (21:30)
[2020-01-11] MEDS: Mirtazapine 15 MG Tablet PO (21:30)
[2020-01-11] MEDS: morphine SR 15 MG Tablet PO (21:30)
[2020-01-11 21:43] VITALS: PULSE 71
[2020-01-11] MEDS: morphine (oral solution) 10MG/0.5ML Syringe 15 MG PO (23:28)
[2020-01-12] VITALS (9 sets, daily range): BP systolic 84–123; BP diastolic 50–87; PULSE 69–103; RESP 16–19; TEMP 36.2–37.2; O2SAT 91–96
--- NOTE | 2020-01-12 01:50 | NURSING ---
PT REQUESTED PAIN MEDICATIONS. DR CAMPOVERDE ORDERED, PHARM VERIFIED. WHEN THIS RN WENT IN TO GIVE MEDICATION TO PT HE WAS SLEEPING. PT NOT AWOKEN PER HIS EARLIER REQUEST.
[2020-01-12] MEDS: HYDROmorphone 1 MG/ML Syringe IV ×2 (02:23→06:32)
[2020-01-12] MEDS: 0.9% Saline Lock 10 ML Syringe IV ×2 (02:23→06:32)
[2020-01-12] MEDS: morphine (oral solution) 10MG/0.5ML Syringe 15 MG PO ×2 (03:43→09:32)
[2020-01-12] MEDS: morphine SR 15 MG Tablet PO (06:31)
[2020-01-12] MEDS: clonazePAM 0.5 MG Tablet PO (06:32)
--- NOTE | 2020-01-12 07:53 | CON.PCM_ITS ---
Reason for Consult Date of Consultation: 01/12/20 Reason for Consultation: Necrotizing pneumonia with severe sepsis History of Present Illness: The patient is a 54-year-old male, with a history as outlined below, who presented as a transfer of care from [facility] with right-sided chest pain. The patient was just discharged from our hospital on January 03 after having been admitted for 6 days under similar circumstances. The patient was noted at that time to have a right upper lobe necrotizing pneumonia with associated paratracheal mediastinal lymphadenopathy. The plan at the time of his discharge was for the patient to complete a 3-week course of Augmentin with repeat chest imaging. The patient has a history of coronary artery disease status post PCI, questionable COPD of unknown severity, chronic tobacco dependency, chronic pain syndrome, anxiety/depression, and lung cancer which is currently being treated at [facility]. The patient does continue to smoke 5 cigarettes/day. On presentation to the progressive care unit, the patient was noted to be afebrile, hemodynamically stable and was maintaining appropriate oxygen saturations on room air. It does appear that the patient was treated with vancomycin and Zosyn at the outside hospital prior to transfer. Lactate was within normal limits. Troponin was unremarkable. Covid test was negative. Respiratory viral panel was negative. This morning, the patient reported that he does have chronic right-sided chest pain, but that it felt worse than normal. Although the patient is prescribed extended release morphine and as needed immediate release morphine, he reports that he only utilizes his sustained-release medication and only intermittently utilizes his PRN dosing despite having pain. 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 Past Medical History Past Medical History (Chronic Problems): Chronic Problems (Last Reviewed 01/11/20 @ 20:[address] Ramón Reinoso MD) PAF (paroxysmal atrial fibrillation) (Chronic) COPD (chronic obstructive pulmonary disease) (Chronic) Lung cancer (Chronic) Chest pain (Chronic) Pharyngitis (Chronic) Essential (primary) hypertension (Chronic) Nicotine dependence (Chronic) HLD (hyperlipidemia) (Chronic) Alcohol abuse (Chronic) Atherosclerosis of coronary artery of [place] heart with angina pectoris (Chronic) BMS-Prox and Distal RCA 12/23/16 History of coronary artery stent placement (Chronic 11/16/17) BMS-Prox and Distal RCA 12/23/16 Medical History: Medical History (Last Reviewed 01/11/20 @ 20:[address] Ramón Reinoso MD) Essential (primary) hypertension (Chronic) I10 Nicotine dependence (Chronic) F17.200 HLD (hyperlipidemia) (Chronic) E78.5 Alcohol abuse (Chronic) F10.10 NSTEMI (non-ST elevated myocardial infarction) (Inactive) Onset Date: 04/07/18 I21.4 Atherosclerosis of coronary artery of [place] heart with angina pectoris (Chronic) I25.119 BMS-Prox and Distal RCA 12/23/16 Anxiety F41.9 Acute pulmonary embolism (Resolved) Onset Date: 04/08/18 I26.99 STEMI (ST elevation myocardial infarction) (Resolved) 12/23/16 STEMI (ST elevation myocardial infarction) I21.3 12/23/16 Noncompliance (Inactive) Z91.19 Allergies No Known Allergies Allergy (Verified 12/29/19 05:59) Home Medications: Ambulatory Orders Medication Instructions Recorded Aspirin [Aspirin, Baby] 162 mg PO DAILY@0800 10/03/17 Clonazepam [Klonopin] 0.5 mg PO Q8H PRN PRN 09/08/19 Escitalopram Oxalate [Lexapro] 10 mg PO DAILY 09/08/19 Folic Acid 1 mg PO DAILY 09/08/19 Morphine [Morphine IR] 15 mg PO Q4H PRN PRN 09/08/19 Albuterol IH (ProAir) [Proair Hfa] 1 - 2 puff INHALATION Q4H PRN PRN 10/30/19 #1 inhaler Apixaban [Eliquis] 5 mg PO BID #0 10/30/19 Gabapentin [Neurontin] 400 mg PO TIDCM #90 cap 10/30/19 Pantoprazole Sodium [Protonix] 40 mg PO BID #60 tab 10/30/19 Phenol/Sodium Phenolate 5 spray MM Q2H PRN PRN #1 bottle 10/30/19 [Chloraseptic (BKC)] Atorvastatin Calcium 80 mg PO DAILY 11/09/19 traZODone [Desyrel] 50 mg PO QHS 11/09/19 morphine SR tablet [Ms Contin] 15 mg BC TID 12/29/19 Potassium Chloride [K-Dur] 40 meq PO DAILY #20 tab 01/04/20 Metoprolol Succinate [Toprol Xl] 25 mg PO DAILY 01/11/20 Mirtazapine [Remeron] 15 mg PO QHS 01/11/20 Acetaminophen [Tylenol Tablet] 650 mg PO Q6H PRN PRN tab 01/12/20 Amoxicillin/Potassium Clav 1 ea PO BIDCM #42 tab 01/12/20 [Augmentin 875-125 Tablet] Metoprolol(XL)Succ [Toprol Xl 25 mg PO DAILY tab 01/12/20 (Beta Levon)] Surgical History: Surgical History (Last Reviewed 01/11/20 @ 20:[address] Ramón Reinoso MD) History of coronary artery stent placement (Chronic) Onset Date: 12/23/16 Z95.5 BMS-Prox and Distal RCA 12/23/16 History of left heart catheterization Onset Date: 04/07/18 Z98.890 12/23/16- PCI with BM stent to prox RCA & distal RCA; 01/12/17- patent BM stents; Surgical History: - - PCI x 2, T+A, L inguinal hernia repair, status post left neck surgery for abscess, status post left inguinal hernia repair Psychiatric History: Anxiety, Depression Smoking Status: Light Smoker (<10/day) - *Family History Sibling Family History: Family History (Last Reviewed 01/11/20 @ 20:[address] Ramón Reinoso MD) Father Myocardial infarction, Onset Age: 36 Mother Myocardial infarction Cancer History Items: - - Patient notes a history of a sister who underwent a CABG early in life. Maternal Family History: Family History (Last Reviewed 01/11/20 @ 20:[address] Ramón Reinoso MD) Father Myocardial infarction, Onset Age: 36 Mother Myocardial infarction Cancer History Items: Cancer - breast, Heart Disease - [place] Paternal Family History: Family History (Last Reviewed 01/11/20 @ 20:[address] Ramón Reinoso MD) Father Myocardial infarction, Onset Age: 36 Mother Myocardial infarction Cancer History Items: - - Patient notes a paternal family history of heart disease, passing secondary to fatal [place] at age 36. Review of Systems Constitutional: Denies: Chills, Fever, Weight Change HEENT: Denies: Head Aches, Sinus Congestion, Sinus Drainage Cardiovascular: Reports: Chest Pain Respiratory: Reports: Cough Gastrointestinal: Denies: Abdominal Pain, Nausea, Vomiting Genitourinary: Denies: Dysuria Musculoskeletal: Denies: Joint Pain, Joint Tenderness Skin: Denies: Rash, Wounds Neurological: Denies: Numbness, Tingling, Focal weakness Psychiatric: Denies: Anxiety, Depression, Homicidal Ideations, Suicidal Ideations Hematologic/ Lymphatic: Denies: Easy Bruising, Easy Bleeding Patient Problems: Active and Suspected Problems (Last Reviewed 01/11/20 @ 20:[address] Ramón Reinoso MD) Necrotizing pneumonia (Acute) Objective: The patient's most recent lab work, culture data and imaging studies have all been personally reviewed. - Physical Exam Vitals/I&O's: Vital Signs Temp Pulse Resp BP Pulse Ox 98.2 F 88 18 120/70 96 01/12/20 05:30 01/12/20 05:30 01/12/20 05:30 01/12/20 05:30 01/12/20 05:30 Oxygen Delivery Method Room Air Weight: 167 lb 3.2 oz Body Mass Index (BMI) 20.9 Intake and Output for Last 24 Hours 01/10/20 01/11/20 01/12/20 23:59 23:59 23:59 Intake Total 950 / 950 Balance 950 / 950 General: Alert, Cooperative, No apparent distress HEENT: Atraumatic, Normocephalic Oral: No Gingival or Mucosal Lesions/ Ulcerations Neck: Supple, No Nodes, Trachea Midline Lungs: No rhonchi, No wheeze, No rales, Diminished Cardiovascular: Regular rate, Regular Rhythm Abdomen: Bowel Sounds Present, Soft, Non Tender Extremities: No clubbing, No cyanosis, No edema Skin: No breakdown Musculoskeletal: No Muscle Wasting Lymphatic: No Cervical, Supraclavicular, or Inguinal Adenopathy Neurological: Cranial nerves II-XII grossly intact, Neuro grossly intact Psych/Mental Status: Flat Affect Microbiology 01/12/20 02:20 Urine, Random Legionella Antigen - Final 01/12/20 02:20 Urine, Random Streptococcus pneumoniae Antigen (M - Final Current Medications Acetaminophen (Acetaminophen 325 Mg Tablet) 650 mg PO Q6H PRN PRN PRN Reason: Pain Score 1-10/Temp > 100.7 F Albuterol Sulfate (Albuterol 2.5 Mg/3 Ml Vial.Neb.) 2.5 mg INHALATION Q4H PRN PRN Reason: dyspnea, wheezing Apixaban (Apixaban 5 Mg Tablet) 5 mg PO BID [facility] Last Admin: 01/11/20 21:30 Dose: 5 mg Documented by: Aspirin (Aspirin 81 Mg Tab.Chew) 162 mg PO DAILY@0800 [facility] Atorvastatin Calcium (Atorvastatin Calcium 80 Mg Tablet) 80 mg PO DAILY@2200 [facility] Last Admin: 01/11/20 21:30 Dose: 80 mg Documented by: Clonazepam (Clonazepam 0.5 Mg Tablet) 0.5 mg PO Q8H PRN PRN PRN Reason: ANXIETY Last Admin: 01/12/20 06:32 Dose: 0.5 mg Documented by: Escitalopram Oxalate (Escitalopram Oxalate 10 Mg Tablet) 10 mg PO DAILY [facility] Folic Acid (F[facility] 1 Mg Tablet) [facility] Gabapentin (Gabapentin 400 Mg Capsule) 400 mg PO TIDCM [facility] Guaifenesin (Guaifenesin 10 Ml Udc (200mg/10ml)) 10 ml PO Q4H PRN PRN PRN Reason: COUGH Hydromorphone HCl (Hydromorphone 1 Mg/Ml Syringe) 1 mg IV Q4H PRN PRN PRN Reason: Pain Score 6-10 Last Admin: 01/12/20 06:32 Dose: 1 mg Documented by: Sodium Chloride () 250 mls @ 15 mls/hr IV .[id number] PRN PRN Reason: Saline Flush Sodium Chloride () 250 mls @ 15 mls/hr IV .[id number] PRN PRN Reason: Additional IVPB Infusion Last Admin: 01/12/20 03:04 Dose: 15 mls/hr Documented by: Piperacillin Sod/Tazobactam (Sod 3.375 gm/ Sodium Chloride) 50 mls @ 12.5 mls/hr IV Q8 [facility] Stop: 01/18/20 22:01 Last Admin: 01/12/20 06:31 Dose: 12.5 mls/hr Documented by: Metoprolol Succinate (Metoprolol(Xl)Succ 25 Mg Tablet) 25 mg PO DAILY [facility] Mirtazapine (Mirtazapine 15 Mg Tablet) 15 mg PO QHS [facility] Last Admin: 01/11/20 21:30 Dose: 15 mg Documented by: Morphine Sulfate (Morphine Sr 15 Mg Tablet) 15 mg PO TID [facility] Last Admin: 01/12/20 06:31 Dose: 15 mg Documented by: Morphine Sulfate (Morphine (Oral Solution) 10mg/0.5ml Syringe) 15 mg PO Q4H PRN PRN PRN Reason: PAIN 1-10 Last Admin: 01/12/20 03:43 Dose: 15 mg Documented by: Nicotine (Nicotine 21 Mg Patch) 21 mg TD DAILY [facility] Ondansetron HCl (Ondansetron 4 Mg/2 Ml Vial) 4 mg IV Q8H PRN PRN PRN Reason: NAUSEA/VOMITING Potassium Chloride (Potassium Chloride 20 Meq Tablet) 40 meq PO DAILYCM [facility] Sodium Chloride (0.9% Saline Lock 10 Ml Syringe) 10 - 40 ml IV UD PRN PRN Reason: SALINE FLUSH Last Admin: 01/12/20 06:32 Dose: 10 ml Documented by: Trazodone HCl (Trazodone 50 Mg Tablet) 50 mg PO QHS [facility] Last Admin: 01/11/20 21:30 Dose: 50 mg Documented by: Assessment/Plan All Active Problems (Last Reviewed 01/11/20 @ 20:[address] Ramón Reinoso MD) Necrotizing pneumonia (Acute) Acute pulmonary embolism (Resolved 04/08/18) Chest pain (Resolved) Intermittent palpitations (Resolved) STEMI (ST elevation myocardial infarction) (Resolved) RECOMMENDATIONS: 1. Recommend Unasyn while inpatient and resume p.o. Augmentin for 3 weeks per ID recommendations noted on January 01. 2. The patient is maintaining appropriate oxygen saturations on room air. Encourage incentive spirometer use. 3. Recommend repeat chest imaging prior to completion of antibiotic treatment course in 3 weeks. 4. Continue home pain medication regimen. 5. Given that the patient is at his baseline and was just admitted to the hospital for the same complaints, will sign off. Please call with any addit ional questions. IMPRESSIONS: 1. Chest pain/necrotizing pneumonia Suspect that the patient's pain is related to underlying cancer coupled with previously diagnosed necrotizing pneumonia. The patient was encouraged to continue to utilize his outpatient sustained-release and PRN pain medications. The patient was supposed to be on 3 weeks of antibiotics per ID recommendations, but never picked up the antibiotics. At this time, recommend transitioning the patient back to p.o. Augmentin with plans for a 3-week treatment course per the previously noted ID recommendations. Repeat chest imaging will need to be completed prior to completion of his antibiotic treatment course. 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 Given that the patient is at his baseline from a respiratory perspective, will sign off. 2. History of lung cancer The patient is currently under the management of oncology at [facility]. Recommend continued outpatient follow-up. 3. Questionable COPD of unknown severity/chronic tobacco dependency The patient has a self-reported history of COPD of unknown severity along with an extensive tobacco abuse history. Nicotine replacement therapy can be utilized while the patient is admitted to the hospital. Bronchodilators are reasonable for now. 4. History of coronary artery disease status post PCI/hypertension/hyperlipidemia/chronic pain syndrome/anxiety/depression Complicates care, management, recovery and prognosis. Recommend continuing outpatient pain and anxiety regimen. This note was generated with [employer] dictation software. It may contain incorrect words, spelling, and punctuation that were not noted in checking the note before signing. Inpatient E&M: 33737 Init Hosp L3
[2020-01-12] MEDS: Aspirin 81 MG TAB.CHEW 162 MG PO (09:43)
[2020-01-12] MEDS: Escitalopram Oxalate 10 MG Tablet PO (09:44)
[2020-01-12] MEDS: Folic Acid 1 MG Tablet PO (09:44)
[2020-01-12] MEDS: APIXABAN 5 MG TABLET PO (09:44)
--- NOTE | 2020-01-12 09:56 | NURSING ---
This RN in room with PRN pain meds per pt request. Pt very rude with this RN and demanding IV pain medications instead of PO. Pt argumentative and continuously interrupts this RN while attempting to educate pt. Pt stated Since I'm here and they are available I might as well get IV medications while I can. Pt also very upset that diet is heart healthy and it needs to be changed. Pt also informed this RN that I need to get him an order for Senokot along with that IV morphine. Dr. Love notified and informed of above, no new orders for pain medications, order for diet change and Senokot obtained.
[2020-01-12 11:56] LABS: Absolute Lymphocyte Count 0.29 X10^3/uL (0.83-4.51); Absolute Neutrophil Count 1.3 X10^3/uL (2.0-7.7); Basophil# 0.01 X10^3/uL; Basophil% 0.6 % (0-1); Eosinophil# 0.01 X10^3/uL; Eosinophils% 0.6 % (0-5); Hematocrit 24.5 % (40-54); Hemoglobin 7.9 g/dL (13.0-16.5); Lymphocyte # 0.29 X10^3/ul (4.0); Lymphocyte % 16.1 % (19-41); Mean Corp Hgb Conc 32.2 g/dL (32-36); Mean Corpuscular Hgb 31.1 pg (27.0-32.0); Mean Corpuscular Volume 96.5 fL (80-94); Mean Platelet Vol. 9.9 fl (6.2-12.0); Monocyte# 0.22 X10^3/uL; Monocyte% 12.2 % (0-10); NRBC Flagged by Analyzer 0 % (0-5); Neutrophil # 1.25 X10^3/uL (2.7-7.7); Neutrophil % 69.4 % (47-70); POSITIVE COUNT YES; POSITIVE DIFFERENTIAL YES; POSITIVE MORPHOLOGY YES; Platelet Count 90 K/mm3 (150-450); RBC Distribution Width CV 19.3 % (11.6-14.6); Red Blood Count 2.54 M/mm3 (4.6-6.2); White Blood Count 1.8 K/mm3 (4.4-11.0)
--- NOTE | 2020-01-12 12:11 | DCINST_ITS ---
- Discharge Diagnoses Current Active Problems: Current Active and Chronic Problems (Last Reviewed 01/11/20 @ 20:[address] 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) BMS-Prox and Distal RCA 12/23/16 History of coronary artery stent placement (Chronic 12/23/16) BMS-Prox and Distal RCA 12/23/16 You will use the following diet at home:: No restrictions Your food should be the consistency of: Regular Your liquids should be the consistency of: Regular/Thin Discharge Activity: Return to Normal Activity Weight Bearing Status: Full weight bearing Additional Instructions: DO NOT FAIL TO TAKE YOUR ANTIBIOTICS, DO NOT FAIL TO GET A CAT SCAN OF YOUR CHEST IN TWO WEEKS Allergies/Adverse Reactions: Allergies No Known Allergies Allergy (Verified 12/29/19 05:59) Medications to take at Discharge Aspirin [Aspirin, Baby] 162 mg PO DAILY@0800 10/03/17 Clonazepam [Klonopin] 0.5 mg PO Q8H PRN PRN 09/08/19 Escitalopram Oxalate [Lexapro] 10 mg PO DAILY 09/08/19 Folic Acid 1 mg PO DAILY 09/08/19 Morphine [Morphine IR] 15 mg PO Q4H PRN PRN 09/08/19 Albuterol IH (ProAir) [Proair Hfa] 1 - 2 puff INHALATION Q4H PRN PRN #1 inhaler 10/30/19 Apixaban [Eliquis] 5 mg PO BID #0 10/30/19 Gabapentin [Neurontin] 400 mg PO TIDCM #90 cap 10/30/19 Pantoprazole Sodium [Protonix] 40 mg PO BID #60 tab 10/30/19 Phenol/Sodium Phenolate [Chloraseptic (BKC)] 5 spray MM Q2H PRN PRN #1 bottle 10/30/19 Atorvastatin Calcium 80 mg PO DAILY 11/09/19 traZODone [Desyrel] 50 mg PO QHS 11/09/19 morphine SR tablet [Ms Contin] 15 mg BC TID 12/29/19 Potassium Chloride [K-Dur] 40 meq PO DAILY #20 tab 01/04/20 Metoprolol Succinate [Toprol Xl] 25 mg PO DAILY 01/11/20 Mirtazapine [Remeron] 15 mg PO QHS 01/11/20 Acetaminophen [Tylenol Tablet] 650 mg PO Q6H PRN PRN tablet 01/12/20 Amoxicillin/Potassium Clav [Augmentin 875-125 Tablet] 1 ea PO BIDCM #42 tab 01/12/20 Metoprolol(XL)Succ [Toprol Xl (Beta Levon)] 25 mg PO DAILY tablet 01/12/20 The following prescriptions were given: Amoxicillin/Potassium Clav [Augmentin 875-125 Tablet] 1 ea PO BIDCM #42 tab Transmission Status: Pending to [facility]/pharmacy #[id number] Primary Care Physician: Thad Cazares NP, MICROBIOLOGY TECHNOLOGIST-C [Primary Care Provider] - Test Results: Test results from this visit will be discussed in further detail at your follow- up appointment, if applicable. Please Follow Up With: your oncologist When: in 2 weeks you will need a repeat CAT scan of your lung
[2020-01-12 12:17] LABS: Anion Gap 5 (5-15); BUN 11 mg/dL (7-18); BUN/Creat Ratio 11.9 RATIO (10-20); Calcium,Total 8.3 mg/dL (8.5-10.1); Chloride 101 mmol/L (98-107); Creatinine, Serum 0.93 mg/dL (0.70-1.30); EST Glomerular Filtration Rate 90 mL/min (>60); Est Glom Filt Rate - Afr Amer 109 mL/min (>60); Estimated Creatinine Clearance 97.41 ml/min; Glucose 92 mg/dL (74-106); Potassium 3.3 mmol/L (3.5-5.1); Sodium Level 139 mmol/L (136-145)
[2020-01-12 12:23] LABS: Differential Indicated SCAN CRITERIA MET
[2020-01-12 12:24] LABS: Anisocytosis 1+; Differential Comment SCANNED; Macrocytosis 1+; Platelet Estimate SLT DEC (ADEQ); Red Cell Morphology N CHROM NORMAL (NORM C&C)
--- NOTE | 2020-01-13 15:04 | PCM.DC.SUM ---
Discharge Date and Diagnosis - Problem List Patient Problems: Active and Suspected Problems (Last Reviewed 01/11/20 @ 20:[address] Ramón Reinoso MD) Necrotizing pneumonia (Acute) Date of Admission: 01/11/20 Date of Discharge: 01/12/20 - Primary Discharge Diagnosis Acute Problems: Active Problems (Last Reviewed 01/11/20 @ 20:[address] Ramón Reinoso MD) #1 Necrotizing pneumonia (Acute)-exact organism unknown Hypoxia secondary to #1 Lung carcinoma COPD Coronary artery disease Essential hypertension Noncompliance with medical regimen - Secondary Discharge Diagnosis Chronic Problems: Chronic Problems (Last Reviewed 01/11/20 @ 20:[address] Ramón Reinoso MD) PAF (paroxysmal atrial fibrillation) (Chronic) COPD (chronic obstructive pulmonary disease) (Chronic) Lung cancer (Chronic) Chest pain (Chronic) Pharyngitis (Chronic) Essential (primary) hypertension (Chronic) Nicotine dependence (Chronic) HLD (hyperlipidemia) (Chronic) Alcohol abuse (Chronic) Atherosclerosis of coronary artery of [place] heart with angina pectoris (Chronic) BMS-Prox and Distal RCA 12/23/16 History of coronary artery stent placement (Chronic 12/23/16) BMS-Prox and Distal RCA 12/23/16 Hospital Course and Treatment Operations: None Procedures: None Summary of Care Provided: The patient is a 54 year old M was seen at [facility] emergency room with complaints of chest pain and shortness of breath, he had recently been released from [facility] after treatment for pneumonia a few days prior. Patient had not gotten his antibiotic filled-he stated that he was never told to take an antibiotic even though it was on his discharge instructions from [facility]. Patient requested transfer from [facility] to the hospital here for treatment, he was mildly hypoxic requiring 2 L of O2. Patient was admitted here on 01/11/2020, he was placed on IV antibiotics and aerosol treatments, he was seen on 01/12/2020 by pulmonary medicine who stated that the patient could be treated with outpatient Augmentin. Patient's oxygen was weaned off on that day. On 01/12/2020, patient was seen and examined: On examination he appeared in good health and spirits. Vital signs as documented. Skin warm and dry and without overt rashes. Neck without JVD, neck was supple, trachea midline, thyroid was normal. Lungs clear bilaterally, normal air movement was noted. Heart exam notable for regular rhythm, normal sounds and absence of murmurs, rubs or gallops. Abdomen unremarkable and without evidence of organomegaly, masses, or abdominal aortic enlargement. Bowel sounds are present, abdomen is not distended. Extremities nonedematous, no cyanosis was noted, no clubbing was noted. Neuro: Cranial nerves II through XII are grossly intact, no focal motor deficits were noted, sensation to light touch and pinprick intact, motor exam 5/5 throughout. Psych: Patient is alert and oriented x3, he does not appear anxious or depressed, he does not appear agitated. Patient appears stable for discharge on 01/12/2020, he did not require home O2, it was stressed that he should follow discharge instructions without fail. Patient is to follow-up with his oncologist in 2 weeks to have a repeat CAT scan of his chest performed. Patient was discharged in stable condition on 01/12/2020-patient's hospital improvement occurred faster than expected and he was able to be discharged home. Patient Problems: Active and Suspected Problems (Last Reviewed 01/11/20 @ 20:[address] Ramón Reinoso MD) Necrotizing pneumonia (Acute) - Physical Exam Vitals/I&O's: Vital Signs Temp Pulse Resp BP Pulse Ox 97.1 F L 103 H 16 93/58 L 96 01/12/20 13:01 01/12/20 13:01 01/12/20 13:01 01/12/20 13:01 01/12/20 13:01 Oxygen Delivery Method Room Air Weight: 75.841 kg Body Mass Index (BMI) 20.9 Intake and Output for Last 24 Hours 01/11/20 01/12/20 01/13/20 23:59 23:59 23:59 Intake Total 965.42 / 965.42 Balance 965.42 / 965.42 Microbiology Past 72 Hours 01/12/20 02:20 Urine, Random Legionella Antigen - Final 01/12/20 02:20 Urine, Random Streptococcus pneumoniae Antigen (M - Final Discharge Activity: Return to Normal Activity Weight Bearing Status: Full weight bearing Home Medications: Medications to take at Discharge Aspirin [Aspirin, Baby] 162 mg PO DAILY@0800 10/03/17 Clonazepam [Klonopin] 0.5 mg PO Q8H PRN PRN 09/08/19 Escitalopram Oxalate [Lexapro] 10 mg PO DAILY 09/08/19 Folic Acid 1 mg PO DAILY 09/08/19 Morphine [Morphine IR] 15 mg PO Q4H PRN PRN 09/08/19 Albuterol IH (ProAir) [Proair Hfa] 1 - 2 puff INHALATION Q4H PRN PRN #1 inhaler 10/30/19 Apixaban [Eliquis] 5 mg PO BID #0 10/30/19 Gabapentin [Neurontin] 400 mg PO TIDCM #90 cap 10/30/19 Pantoprazole Sodium [Protonix] 40 mg PO BID #60 tab 10/30/19 Phenol/Sodium Phenolate [Chloraseptic (BKC)] 5 spray MM Q2H PRN PRN #1 bottle 10/30/19 Atorvastatin Calcium 80 mg PO DAILY 11/09/19 traZODone [Desyrel] 50 mg PO QHS 11/09/19 morphine SR tablet [Ms Contin] 15 mg BC TID 12/29/19 Potassium Chloride [K-Dur] 40 meq PO DAILY #20 tab 01/04/20 Metoprolol Succinate [Toprol Xl] 25 mg PO DAILY 01/11/20 Mirtazapine [Remeron] 15 mg PO QHS 01/11/20 Acetaminophen [Tylenol Tablet] 650 mg PO Q6H PRN PRN tab 01/12/20 Amoxicillin/Potassium Clav [Augmentin 875-125 Tablet] 1 ea PO BIDCM #42 tab 01/12/20 Metoprolol(XL)Succ [Toprol Xl (Beta Levon)] 25 mg PO DAILY tab 01/12/20 Following Prescriptions Were Given to Patient: Amoxicillin/Potassium Clav [Augmentin 875-125 Tablet] 1 ea PO BIDCM #42 tab Transmission Status: Received by [facility]/pharmacy #[id number] Primary Care Physician: Thad Cazares NP, SALES TRAINING REPRESENTATIVE-C [Primary Care Provider] - Please Follow Up With: your oncologist When: in 2 weeks you will need a repeat CAT scan of your lung Disposition: Home Minutes spent on discharge:: 31 Patient Condition:: Stable Medical Necessity - Tobacco Use Smoking Status: Light Smoker (<10/day) Meaningful Use Info Meaningful Use Diagnoses (Choose all that apply): None applicable Inpatient E&M: [id number] [facility]
[2020-01-14 14:12] LABS: Pathologist Review Reviewed
== END 2020-01-12 13:23 | disposition home or self-care (01) | DRG 177 ==
PROVIDERS: Hospitalist; Admitting Provider Internal Medicine; PCP Nurse Practitioner Family; Visit Provider Internal Medicine
DX: J85.0 Gangrene and necrosis of lung (principal); D61.810 Antineoplastic chemotherapy induced pancytopenia; J44.0 Chronic obstructive pulmonary disease with (acute) lower respiratory infection; C34.90 Malignant neoplasm of unspecified part of unspecified bronchus or lung; R09.02 Hypoxemia; I10 Essential (primary) hypertension; J38.3 Other diseases of vocal cords; Z79.899 Other long term (current) drug therapy; T45.1X5A Adverse effect of antineoplastic and immunosuppressive drugs, initial encounter; Y92.9 Unspecified place or not applicable; I25.119 Atherosclerotic heart disease of native coronary artery with unspecified angina pectoris; I25.2 Old myocardial infarction; I48.0 Paroxysmal atrial fibrillation; G89.4 Chronic pain syndrome; F32.9 Major depressive disorder, single episode, unspecified; F41.9 Anxiety disorder, unspecified; E78.5 Hyperlipidemia, unspecified; F10.10 Alcohol abuse, uncomplicated; Z86.711 Personal history of pulmonary embolism; Z95.5 Presence of coronary angioplasty implant and graft; Z79.01 Long term (current) use of anticoagulants; F17.210 Nicotine dependence, cigarettes, uncomplicated; Z79.82 Long term (current) use of aspirin; Z91.14 Patient's other noncompliance with medication regimen
CPT/HCPCS: 80048; 85025; 87449; 97802; 99251; 99406; J7040; J7050; A4216; G0463

== ENCOUNTER → 2020-01-23 14:49 | Outpatient (CLI) | payer BC, SELFPAY ==
[2017-01-12 13:36] VITALS: BMI 26.6
[2020-01-11 19:18] VITALS: BMI 20.9
[2020-01-23] MEDS: 0.9% Normal Saline 1,000 ML 999 ML IV (15:15)
[2020-01-23 15:21] VITALS: BP 80/50; PULSE 75; RESP 16; TEMP 36.3; O2SAT 96; BMI 20.9
[2020-01-23 16:32] VITALS: BP 102/56; PULSE 72; RESP 16
== END ==
PROVIDERS: PCP Nurse Practitioner Family; Referring Provider Internal Medicine Hematology & Oncology; Visit Provider Internal Medicine Hematology & Oncology
DX: E86.0 Dehydration (principal); C34.90 Malignant neoplasm of unspecified part of unspecified bronchus or lung
CPT/HCPCS: 96360; J7030; A4216

== ENCOUNTER 2020-01-25 14:47 | Emergency (ER) | payer BC, SELFPAY ==
[2017-01-12 13:36] VITALS: BMI 26.6
[2020-01-23 15:21] VITALS: BMI 20.9
[2020-01-25 14:48] VITALS: BP 120/70; PULSE 140; RESP 18; TEMP 37.9; O2SAT 98; BMI 22.0
--- NOTE | 2020-01-25 15:17 | EKG12_ITS ---
Test Reason : SOB Blood Pressure : / mmHG Vent. Rate : 108 BPM Atrial Rate : 108 BPM P-R Int : 132 ms QRS Dur : 084 ms QT Int : 368 ms P-R-T Axes : 061 025 061 degrees QTc Int : 493 ms Sinus tachycardia with occasional Premature ventricular complexes Right atrial enlargement Nonspecific ST and T wave abnormality Abnormal ECG Confirmed by RUTH VENTURA, MALCOM ([id number]), book editor FEMI AKHTAR ([id number]) on 01/30/2020 9:48:42 A M Referred By: VITOR Confirmed By:EB MIRANDA MD
--- NOTE | 2020-01-25 15:21 | ED.DCSUM_ITS ---
- ER Visit Summary Date of Service: 01/25/20 Chief Complaint: Shortness of breath, chest pain and productive cough History of Present Illness: The patient is a 54 M history of lung CA prior PE currently not on any anticoagulants, CAD, PR, cardiac stents x2, COPD without oxygen and anemia. He was diagnosed with lung cancer in June of this year. He is currently undergoing chemotherapy at [facility]. States he started having chest discomfort starting midsternal rating out of both sides yesterday. With coughing of white phlegm. He denies any fever. He has had nausea and vomiting today. He denies any hematemesis or melena. He denies any hemoptysis. Physical Examination: Middle-aged male vital signs are stable except for heart rate of 140. Pulse ox is 98 on room air no hypoxia. Low-grade temperature 100.3. HEENT exam unremarkable. Mildly dry mucous membranes. Neck nontender. No JVD. No lymphadenopathy. Lungs coarse bilaterally. No rhonchi. Equal symmetrical. Heart tachycardic rate about 140 no murmur. Abdomen soft nontender normal bowel sounds no peritoneal signs. Nondistended. Patient is moving all 4 extremities. Calves are nontender without edema. Normal range of motion. Back nontender. Neurologically is awake alert with no focal motor deficits. Test Results: CBC white count of 4. Hemoglobin 11 which is actually better than the patient's baseline of around 8. Chemistries unremarkable potassium 3.1 normal creatinine and gap. PT/INR normal. Troponin normal. D-dimer elevated 2.16. EKG sinus tach at 108 with PVCs. Right atrial enlargement. Chest x-ray portable 1 view read by myself shows what appears to be right upper lobe infiltrate which been seen in the past and is a cavitary lesion. This was also read by the radiologist. CTA of the chest read by the radiologist reviewed by me shows no PE. Stable size of the necrotic right retrocaval lesion. There is no acute change. Emergency Department Course and Treatment: Patient undergo a cardiac work-up including a D-dimer and a rapid Covid antigen test. He will receive IV Decadron. He will also receive IV Zofran for his nausea. Treatment Plan: Repeat exam patient is doing well at 1840 8 PM. Will be discharged home. Follow-up with his primary care physician or oncologist. He will be placed on prednisone. Disposition: Discharge Impression: Acute dyspnea secondary to COPD History of lung CA with cavitary right-sided lung lesions. Acute chest pain History of CAD, PR with 2 cardiac stents History of COPD and lung CA currently undergoing chemotherapy History of chronic anemia This note was generated with [employer] dictation software. It may contain incorrect words, spelling, and punctuation that were not noted in review of the chart prior to signing ED Disposition - Plan for ED Patient: Referrals: Thad Cazares NP, HANDSTITCHING MACHINE ARMHOLE FELLER-C [Primary Care Provider] -
--- NOTE | 2020-01-25 15:50 | RAD_ITS ---
STUDY: X-RAY CHEST REASON FOR EXAM: Male, 54 years old. SOB AND CHEST TIGHTNESS FOR 1 HOUR. VOMITING SINCE YESTERDAY TECHNIQUE: 1 view COMPARISON: Prior portable chest of 12/29/2019, 12/18/2019 and 11/16/2019. Prior chest CTA of 12/29/2019. FINDINGS: Left PICC terminates in the distal superior vena cava. The pulmonary infiltrates in the right upper lobe is certainly more visible on chest radiography than on the preceding chest x-ray of 12/29/2019 with an underlying cavitary lesion. The cavitary portion appears increased. Negative for substantial pleural effusion. Normal size heart. Stable appearance of the right hilar mass and right paratracheal mass. Normal visualized pulmonary arteries. Normal visualized aortic arch and descending thoracic aorta. Normal visualized thoracic spine. Normal visualized ribs, clavicles, and shoulders. There is no demonstrated abnormality of the visualized soft tissue structures of the upper abdomen. RAD/Chest 1 View (Portable) IMPRESSION: Increasing infiltrate in the right upper lobe around a cavitating lesion. The cavity looks larger. Stable right hilar and right peritracheal mass density. Negative for other new infiltrates or pleural effusion. Stable cardiac size. Left PICC terminates in the distal superior vena cava. Electronically Signed: Sosa Walton MD at 16:40 EST , Service support ,
[2020-01-25 16:04] LABS: Absolute Neutrophil Count 3.5 X10^3/uL (2.0-7.7); Basophil# 0.11 X10^3/uL; Basophil% 2.5 % (0-1); Hematocrit 33.7 % (40-54); Hemoglobin 11.1 g/dL (13.0-16.5); Lymphocyte % 9.2 % (19-41); Mean Corp Hgb Conc 32.9 g/dL (32-36); Mean Corpuscular Hgb 30.8 pg (27.0-32.0); Mean Corpuscular Volume 93.6 fL (80-94); Mean Platelet Vol. 10.1 fl (6.2-12.0); Monocyte# 0.13 X10^3/uL; NRBC Flagged by Analyzer 0 % (0-5); Neutrophil # 3.51 X10^3/uL (2.7-7.7); Neutrophil % 80.9 % (47-70); POSITIVE DIFFERENTIAL YES; Platelet Count 492 K/mm3 (150-450); RBC Distribution Width CV 17.9 % (11.6-14.6); RBC Distribution Width SD 61.9 fl (35.1-43.9); White Blood Count 4.3 K/mm3 (4.4-11.0)
[2020-01-25 16:10] LABS: Differential Indicated SCAN CRITERIA MET
[2020-01-25] MEDS: dexAMETHasone 10 MG/ML Vial IV (16:14)
[2020-01-25] MEDS: Ondansetron 4 MG/2 ML Vial IV (16:14)
[2020-01-25 16:27] LABS: Anion Gap 12 (5-15); BUN 14 mg/dL (7-18); BUN/Creat Ratio 14.3 RATIO (10-20); Calcium,Total 9.1 mg/dL (8.5-10.1); Chloride 99 mmol/L (98-107); Creatinine, Serum 0.98 mg/dL (0.70-1.30); EST Glomerular Filtration Rate 85 mL/min (>60); Est Glom Filt Rate - Afr Amer 103 mL/min (>60); Estimated Creatinine Clearance 97.51 ml/min; Glucose 94 mg/dL (74-106); Potassium 3.1 mmol/L (3.5-5.1); Sodium Level 136 mmol/L (136-145)
[2020-01-25 16:37] VITALS: BP 126/77; PULSE 106; RESP 20; TEMP 36.6; O2SAT 100; O2SAT 99
[2020-01-25 16:46] VITALS: O2SAT 100
[2020-01-25 16:46] LABS: Prothrombin Time (Protime)PT. 12.8 SECONDS (11.7-14.9)
[2020-01-25 16:48] LABS: D-Dimer Quantitative (DVT/PE) 2.16 FEU/ug/m (0.27-0.49)
--- NOTE | 2020-01-25 16:53 | CT_ITS ---
STUDY: CTA CHEST REASON FOR EXAM: Male, 54 years old. RIGHT HILAR MASS. HISTORY OF LUNG CANCER WITH RADIATION AND CHEMO RADIATION DOSAGE (If Supplied By Facility): CTDIvol = ( 14.83 ) mGy, DLP = ( 365.89 ) mGycm TECHNIQUE: The examination was performed with the intravenous administration of IV 100mL Isovue-370. Post-processing of the angiographic images was performed, with multiplanar reformation and 3D reconstruction. Individualized dose optimization techniques were used for this CT. COMPARISON: Chest radiograph 10/25/2018. Prior chest CT a 12/29/2019 FINDINGS: Normal enhancement of the main pulmonary artery and right and left pulmonary arteries. Normal enhancement of the bilateral peripheral pulmonary arteries. There is no demonstrated pulmonary embolism. Moderate elongation of the thoracic aorta without aneurysm or dissection. Normal cardiac size without pericardial effusion. Coronary calcifications are present. Stable size and appearance of the necrotic right retrocaval mass density. Compression of the superior vena cava is noted with PICC present. Stable appearance of the right hilar mass. Increased bands of consolidation in the right upper lobe/formerly groundglass. The cavitary lesion in the right upper lobe is about the same size with a larger area of cavitation/thinner roa. Underlying bullous emphysematous changes and bronchial thickening. Mild atelectatic changes right lower lobe. Negative for pleural effusion. Left lung remains unchanged. Normal chest wall structures. No acute bone findings or changes. No acute changes in the upper abdomen. CT/CTA Chest W/WO Contrast IMPRESSION: Negative for pulmonary embolus. Elongation of the thoracic aorta without aneurysm or dissection. Normal cardiac size. Coronary calcifications present Stable size and appearance of the necrotic right retrocaval mass or lymph node. Stable size of the right hilar lymph node. Cavitary lesion of the right upper lobe is similar in size with greater cavitation/thinning of the roa. There is an increase amount of consolidative bands in the right upper lobe, formerly primarily groundglass infiltrates. Underlying bullous emphysematous changes and generalized bronchial thickening. Increase general atelectatic changes in the right lower lobe. Negative for pleural effusion. Left lung expanded and is clear. No acute osseous findings. No acute findings in the upper abdomen. Electronically Signed: Sosa Walton MD at 17:52 EST , Service support ,
--- NOTE | 2020-01-25 18:50 | ED.DEP ---
ED Disposition - Plan for ED Patient: Disposition: Home or Assisted Living Diagnosis: COPD (chronic obstructive pulmonary disease) Prescriptions: predniSONE tablet 40 mg PO DAILY 5 Days tab Prescription Printed Referrals: Thad Cazares NP, CASINO ENFORCEMENT AGENT-C [Primary Care Provider] - 3-5 Days Additional Instructions: Follow-up with your primary care provider or your oncologist. Your labs today or similar to your prior labs. There is no signs of an acute pneumonia. There is no blood clot. Your lung cancer looks the same as it has in the past. Prednisone daily to decrease inflammation in your lungs and help your breathing.
[2020-01-25 19:06] VITALS: BP 107/80; PULSE 107; RESP 18; O2SAT 97
== END 2020-01-25 19:08 | disposition home or self-care (01) ==
PROVIDERS: Emergency Provider Emergency Medicine; PCP Nurse Practitioner Family
DX: J44.9 Chronic obstructive pulmonary disease, unspecified (principal); C34.90 Malignant neoplasm of unspecified part of unspecified bronchus or lung; I25.10 Atherosclerotic heart disease of native coronary artery without angina pectoris; D63.8 Anemia in other chronic diseases classified elsewhere; I25.2 Old myocardial infarction; Z95.5 Presence of coronary angioplasty implant and graft; I49.3 Ventricular premature depolarization; Z86.711 Personal history of pulmonary embolism; Z79.82 Long term (current) use of aspirin; Z79.899 Other long term (current) drug therapy
CPT/HCPCS: 36591; 71045; 71275; 80048; 84484; 85025; 85379; 85610; 87426; 93005; 96374; 96375; 99283; Q9967; A4216; J2405